=== PATIENT | female | born 1945 | race Caucasian/White ===

== ENCOUNTER 2021-03-19 16:25 | Emergency (ER) | payer MEDICARE, OTHER, SELFPAY ==
[2021-03-19] VITALS (16 sets, daily range): BP systolic 110–147; BP diastolic 51–130; PULSE 61–70; RESP 15–25; TEMP 36.8–36.9; O2SAT 95–100
--- NOTE | ~2021-03-19 | XR_ITS ---
XR chest 1V portable DATE: 03/19/2021 18:15 INDICATION: Fever, cough, chills. Congestive heart failure, hypertension, asthma. TECHNIQUE: Portable AP chest on 03/19/2021 1812 hours COMPARISON: None FINDINGS: There is left mid and lower lung infiltrate and/or atelectasis and lesser right lower lung infiltrate and/or atelectasis. Heart size is likely within normal range considering magnification associated with AP projection. The re is aortic arch calcification and thoracic aortic tortuosity. No pneumothorax. Diffuse osteopenia. Thoracic scoliosis. IMPRESSION: Left mid and bilateral lower lung infiltrate and/or atelectasis Reviewed, dictated and finalized at location J. [place] TECHNICIAN
--- NOTE | 2021-03-19 18:08 | ECG_ITS ---
Measurements Intervals [place] Rate: 62 P: 64 MD: 209 QRS: 45 QRSD: 100 T: 53 QT: 481 QTc: 492 Interpretive Statements SINUS RHYTHM PROLONGED QT INTERVAL ABNORMAL ECG Electronically Signed On 03-20-2021 14:04:05 [employer]PERATIONS OFFICER [employer]FLOAT by Alonzo Sidhu D.O.
--- NOTE | 2021-03-19 18:09 | ED.FEVER ---
HPI - Fever General Chief Complaint: Fever Stated Complaint: fever, nausea Time Seen by Provider: 03/19/21 17:59 Source: patient and RN notes reviewed Mode of arrival: ambulatory Limitations: no limitations History of Present Illness HPI Narrative: This is an 75 year old female who presents for evaluation of fever. She reports approximately 1 pm today she started to feel unwell. She was told by her family that she had a fever, but she is unsure of temperature. She denies being given any medication for fever prior to arrival. She reports nausea and mild frontal headache. She wears 2-4 liters oxygen [place] all the time. She reports chronic cough and chronic sob. She denies any worsening of those symptoms. She denies vomiting, chest pain, abdominal pain, diarrhea or any urinary complaints. She has received influenza and covid vaccination/booster. She is visiting from [place]. Related Data Allergies Allergy/AdvReac Type Severity Reaction Status Date / Time acetaminophen [From Percocet] Allergy Unknown Verified 03/19/21 16:45 clindamycin Allergy Chills Verified 03/19/21 16:45 diazepam Allergy Other Verified 03/19/21 16:45 meperidine [From Demerol] Allergy Hallucinati Verified 03/19/21 16:45 ng oxycodone [From Percocet] Allergy Unknown Verified 03/19/21 16:45 propoxyphene Allergy Nausea and Verified 03/19/21 16:45 Vomiting Review of Systems Review of Systems: All systems reviewed & are unremarkable except as noted in HPI and below Constitutional: Constitutional: Reports fever(s) ENT: Denies nasal congestion and Denies sore throat Cardiovascular: Cardiovascular: Denies chest pain Respiratory: Respiratory: Reports cough (chronic) and Denies dyspnea Gastrointestinal: Gastrointestinal: Denies abdominal pain, Denies diarrhea, Reports nausea and Denies vomiting Genitourinary: Genitourinary: Denies dysuria and Denies flank pain Musculoskeletal: Musculoskeletal: Reports myalgias (chronic from fibromyalgia) Neurologic: Reports headache(s) [facility] Past Medical History Medical History (Updated 03/20/21 @ 00:00 by Background Daemon) Asthma CHF (congestive heart failure) Fibromyalgia Hypertension Supplemental oxygen dependent Exam Const: General: alert; No no acute distress Orientation/consciousness: patient oriented x3 Eyes: EOM: EOMs intact bilaterally Chest: Chest palpation & inspection: normal inspection of the chest Resp: Effort & Inspection: normal respiratory effort, no retractions and not tachypneic Auscultation: wheezes (bibasilar expiratory ) Cardio: Rate: regular rate Rhythm: regular rhythm Heart sounds: no murmurs GI: GI Palp: Yes Soft to palpation, No Tenderness to palpation present (GI) and No Guarding due to palpation present (GI) Auscultation: normal bowel sounds Skin: General skin exam: normal color Rashes: no rashes Neuro: General: patient oriented x3, moves all extremities and CN's II-XI intact bilaterally Extrem: General: normal to inspection and no pedal edema Psych: Mental Status: mental status grossly normal Affect: normal affect Course Reevaluation(s) Reevaluation #1: Patient has no complaints at this time. I Discussed that she will be discharged home and started on antibiotics for possible pneumonia. I also discussed with her daughter at bedside. I discussed return precautions. Date: 03/19/21 Time: 21:42 Vital Signs Vital signs: Vital Signs Temperature 98.4 F 03/19/21 16:40 Pulse Rate 67 03/19/21 16:40 Respiratory Rate 18 03/19/21 16:40 Blood Pressure 117/51 L 03/19/21 16:40 Pulse Oximetry 95 03/19/21 16:40 Temperature 98.3 F 03/19/21 22:10 Pulse Rate 69 03/19/21 22:10 Respiratory Rate 16 03/19/21 22:10 Blood Pressure 136/76 03/19/21 22:10 Pulse Oximetry 100 03/19/21 22:10 MDM - Fever Lab Data Attestation: I reviewed the patient's lab results. Result diagrams: 03/19/21 18:52 03/19/21 18:52
[2021-03-19 18:21] LABS: Alveolar/Arterial O2 Gradient 59.2 mmHg; Base Excess ABG 1.6 mEq/l (+/-2.0); Carboxyhemoglobin 0.3 % THb (0-2.0); Device NASAL CANNULA; Fractional Inspired Oxygen 28 %; HCO3 ABG 25.2 mEq/l (22.0-26.0); Methemoglobin ABG 0.1 %THb (0-1.5); Modified Allen's Test Pass; Oxygen Content ABG 15.9 %vol (16.0-22.0); Oxygen Saturation ABG 97.8 % (95.0-100.0); Oxyhemoglobin 96.4 % THb (90.0-100.0); PCO2 ABG 35.7 mmHg (35.0-45.0); PO2 ABG 98.3 mmHg (80.0-100.0); PO2 FiO2 Ratio Arterial Blood 3.51 %; Reduced Hemoglobin 3.2 %THb (0-5.0); Site Drawn LEFT RADIAL; Total Hemoglobin 11.6 g/dL (12.0-18.0); pH ABG 7.466 (7.350-7.450)
[2021-03-19 19:01] LABS: Basophils Percent Auto 0.2 % (0.2-1.2); Eosinophils Percent Auto 0.2 % (0-4.4); Hematocrit 30.6 % (37.0-47.0); Hemoglobin 10.6 g/dL (12.0-15.0); Immature Granulocyte Absolute 0.06 K/mm3 (0.00-0.031); Immature Granulocyte Percent A 0.5 % (0-0.5); Lymphocytes Absolute Auto 0.42 K/mm3 (0.9-3.2); Lymphocytes Percent Auto 3.7 % (18.3-44.2); Mean Corpuscular HGB Conc 34.6 g/dl (32-36); Mean Corpuscular Hemoglobin 31.9 pg (26-34); Mean Corpuscular Volume 92.2 fl (80-100); Mean Platelet Volume 10.7 fl (7.4-10.4); Monocytes Absolute Auto 2.4 K/mm3 (0.1-0.6); Monocytes Percent Auto 21.6 % (2.6-8.5); Neutrophils Absolute Auto 8.3 K/mm3 (1.3-6.7); Neutrophils Percent Auto 73.8 % (45.5-73.1); Platelet Count Result 152 k/mm3 (150-375); Red Blood Count 3.32 M/mm3 (4.2-5.4); Red Cell Distribution Width 12.9 % (11.5-14.5); White Blood Count 11.3 K/mm3 (4.5-10.0)
[2021-03-19] MEDS: ONDANSETRON INJ 4 MG/2 ML VIAL IV PUSH (19:03)
[2021-03-19 19:09] LABS: Lactic Acid Reflex 0.6 mmol/L (0.7-2.1)
[2021-03-19 19:12] LABS: Alanine Aminotransferase 40 U/L (4-35); Albumin Level 4.3 g/dL (3.5-5.1); Alkaline Phosphatase 114 U/L (38-126); Anion Gap 11 mmol/L (8-16); Aspartate Amino Transferase 41 U/L (14-36); Bilirubin,Total 1.5 mg/dL (0.2-1.3); Blood Urea Nitrogen 13 mg/dL (7-17); Calcium 9.6 mg/dL (8.4-10.2); Carbon Dioxide 26 mmol/L (22-30); Chloride 95 mmol/L (98-107); Estimated CRCL calculation 60 ml/min; Estimated Glomerular Filt Rate > 60; Glucose 144 mg/dL (65-110); Lipase 44 U/L (23-300); Magnesium 1.5 mg/dL (1.6-2.3); Potassium 3.5 mmol/L (3.4-5.0); Sodium 132 mmol/L (137-145)
[2021-03-19 19:37] LABS: SARS-CoV-2 RNA PCR Negative
[2021-03-19 20:15] LABS: Add Urine Microscopic? NO; Appearance Urine Clear (Clear); Bilirubin Urine Negative (Negative); Blood Urine Negative (Negative); Color Urine Yellow (Yellow); Glucose Urine UA Negative (Negative); Ketones Urine Negative (Negative); Leukocyte Esterase Ur Negative LEU/UL (Negative); Nitrate Urine Negative (Negative); Protein Urine Negative (Negative); Specific Grav Ur 1.014 (1.001-1.035); Urobilinogen Urine Negative mg/dL (<2.0)
--- NOTE | 2021-03-19 20:59 | PC.NURSE ---
Pt daughter updated by phone.
[2021-03-19] MEDS: MAGNESIUM OXIDE 400 MG TABLET PO (21:22)
== END 2021-03-19 22:18 | disposition home or self-care (01) ==
PROVIDERS: Emergency Provider General Practice; PCP Internal Medicine
DX: J18.9 Pneumonia, unspecified organism (principal); Z20.822 Contact with and (suspected) exposure to COVID-19; I11.0 Hypertensive heart disease with heart failure; I50.9 Heart failure, unspecified; J45.909 Unspecified asthma, uncomplicated; Z99.81 Dependence on supplemental oxygen
CPT/HCPCS: 36415; 36600; 71045; 80053; 81003; 82375; 82805; 83050; 83605; 83690; 83735; 85025; 87804; 93005; 96365; 96375; 99284; A9270; C9803; J0696; J2405; U0003; U0005

== ENCOUNTER 2021-05-08 08:04 | Outpatient (CLI) | payer MEDICARE, OTHER, SELFPAY ==
--- NOTE | ~2021-05-08 | XR_ITS ---
XR chest 2V DATE: 05/08/2021 09:09 INDICATION: Pneumonia, asthma, congestive heart failure, hypertension TECHNIQUE: PA and lateral views COMPARISON: 03/19/2021 portable AP chest FINDINGS: There is prominent S-shaped thoracolumbar scoliosis and degenerative change of the thoracic and lumbar spine. Status post posterior lumbar spinal surgical fusion. Osteopenia. Heart size is within normal range. There is aortic calcification and tortuosity.. No hilar or mediastinal enlargement. No pleural effusion or pulmonary vascular congestion or pneumothorax. There is minimal atelectasis or scarring in the lateral right lower lung. No pulmonary consolidation . IMPRESSION: No active disease Reviewed, dictated and finalized at location A. ANY SECRETARY IMPRESSION: No active disease
--- NOTE | 2021-05-08 12:44 | WPDSIXMINUTE ---
Six Minute Walk Procedure Procedure Performed Pulmonary Stress Test (6 min walk) Six Minute Walk This 6 minute walk test was carried out with the patient breathing supplemental oxygen 4 liters/minute via portable device. The pre walk oxyhemoglobin saturation was 98%. The patient walked 106 m with no stops recorded. During the walk the oxyhemoglobin saturation remained over 94%. The perceived dyspnea was 0 on the Minerva scale at baseline and increased to 4 at the end of the walk. Impression: No evidence of oxyhemoglobin desaturation on this testing.
== END 2021-05-08 08:05 | disposition home or self-care (01) ==
LOC: ANHPFT 08:14
PROVIDERS: PCP Internal Medicine; Visit Provider Internal Medicine
DX: R09.02 Hypoxemia (principal)
CPT/HCPCS: 71046; 94618

== ENCOUNTER 2021-05-23 16:31 | Emergency (ER) | payer MEDICARE, OTHER, SELFPAY ==
--- NOTE | ~2021-05-23 | XR_ITS ---
XR knee LT 3V DATE: 05/23/2021 17:02 INDICATION: Anterior patellar knee pain. No known injury. TECHNIQUE: [place], AP and lateral views COMPARISON: None FINDINGS: Status post left knee arthroplasty with patellar resurfacing. Diffuse osteopenia. No fracture or dislocation or joint effusion. No periosteal reaction or bone destruction. IMPRESSION: Osteopenia Status post left total knee arthroplasty No acute finding Reviewed, dictated and finalized at location A.
--- NOTE | 2021-05-23 16:42 | ED.LOWEXIN ---
HPI - Extremity Injury (Lower) General Chief Complaint: Extremity Problem,Nontraumatic Stated Complaint: Left knee pain Time Seen by Provider: 05/23/21 16:45 Source: patient and family Mode of arrival: ambulatory Limitations: physical limitation (In motorized wheelchair) History of Present Illness HPI Narrative: Ms. Darden is a 75-year-old female patient presenting to the clinic today with complaints of possible dislocation of the left knee cap. She first noticed this today. No known injury. She does have a small braised area just under her kneecap but denies any known injury or recent falls. History of left knee repair 20 years ago. Related Data Home Medications Medication Instructions Recorded Confirmed Aldactone 05/23/21 Protonix 05/23/21 Prozac 05/23/21 Synthroid 05/23/21 albuterol sulfate INHALATION 05/23/21 amlodipine 05/23/21 fluoxetine mg 05/23/21 furosemide 05/23/21 gabapentin 05/23/21 montelukast mg 05/23/21 pantoprazole PO 05/23/21 potassium chloride meq PO 05/23/21 telmisartan 05/23/21 Allergies Allergy/AdvReac Type Severity Reaction Status Date / Time acetaminophen [From Percocet] Allergy Unknown Verified 03/19/21 16:45 clindamycin Allergy Chills Verified 03/19/21 16:45 diazepam Allergy Other Verified 03/19/21 16:45 meperidine [From Demerol] Allergy Hallucinati Verified 03/19/21 16:45 ng oxycodone [From Percocet] Allergy Unknown Verified 03/19/21 16:45 propoxyphene Allergy Nausea and Verified 03/19/21 16:45 Vomiting Review of Systems Review of Systems: Pertinent positives per HPI. Patient denies any fever, chills, rash, headache, visual changes, dizziness, cough, runny nose, sore throat, shortness of breath, chest pain, palpitations, nausea, vomiting, diarrhea, constipation, abdominal pain, or any urinary issues. [facility] Past Medical History Medical History Asthma CHF (congestive heart failure) Fibromyalgia Hypertension Supplemental oxygen dependent Comments At the time of my signature, I reviewed and agree with the nursing past medical, surgical, social, and family history. There is no relevant family history pertinent to the patient complaint. Exam Narrative: General: Well-developed, obese, in no apparent distress, wearing home O2. Cardio: Regular rate and rhythm, s1 and s2 normal, no murmur appreciated. Resp: Clear to auscultation bilaterally, no rhonchi, rales, wheezing or rubs. Musculoskeletal: No deformity, well-healed surgical scar over left knee, very small abrasion just below the left patella, left patella more pronounced then right, tenderness to palpation over the medial and inferior patella, no pain with flexion or extension of the left leg, grossly normal range of motion, no edema, no cyanosis, sitting in a wheelchair. Course Course Emergency Course: Portions of this record may have been created with voice recognition software. Level of Care: Express Care Visit Vital Signs Vital signs: Vital Signs Temperature 36.3 C L 05/23/21 16:45 Pulse Rate 67 05/23/21 16:45 Respiratory Rate 16 05/23/21 16:45 Blood Pressure 106/78 05/23/21 16:45 Pulse Oximetry 99 05/23/21 16:45 Temperature 36.3 C L 05/23/21 16:45 Pulse Rate 67 05/23/21 16:45 Respiratory Rate 16 05/23/21 16:45 Blood Pressure 106/78 05/23/21 16:45 Pulse Oximetry 99 05/23/21 16:45 Vital signs reviewed MDM - Extremity Injury (Lower) MDM Narrative Medical decision making narrative: At the time of assessment patient had tenderness to the medial and inferior aspects of the left patella, no fluctuation with knee extension. Left knee x-ray completed and was negative for any fracture or malalignment. Suspect some osteoarthritis and the knee x-ray. Awaiting radiologist report. We will send patient home with supportive measures and contact her if radiologist notes any difference in interpretation.
[2021-05-23 16:45] VITALS: BP 106/78; PULSE 67; RESP 16; TEMP 36.3; O2SAT 99
== END 2021-05-23 17:19 | disposition home or self-care (01) ==
PROVIDERS: Emergency Provider Nurse Practitioner Family; PCP Internal Medicine
DX: M25.562 Pain in left knee (principal); J45.909 Unspecified asthma, uncomplicated; M79.7 Fibromyalgia; I11.0 Hypertensive heart disease with heart failure; I50.9 Heart failure, unspecified; Z99.81 Dependence on supplemental oxygen
CPT/HCPCS: 73562; 99213; G0463

== ENCOUNTER 2021-07-03 09:24 | Outpatient (CLI) | payer MEDICARE, OTHER, SELFPAY ==
--- NOTE | ~2021-07-03 | US_ITS ---
EXAMINATION: US retroperitoneal duplex ltd DATE: 07/03/2021 10:28 INDICATION: Hypotension. TECHNIQUE: Multiple grayscale, color Doppler, and pulsed Doppler images of the kidneys and renal shantel kate were obtained. COMPARISON: None. FINDINGS: The aorta peak systolic velocity was not measured. The right renal artery peak systolic velocity is 7 5 cm/s in the proximal segment, 78 cm/s in the mid segment, and 69 cm/s in the distal segment. The le ft renal artery peak systolic velocity is 87 cm/s in the proximal segment and 83 cm/s in the distal s egment. IMPRESSION: 1. No Doppler evidence of renal artery stenosis. Reviewed, dictated and finalized at location A.
== END 2021-07-03 09:25 | disposition home or self-care (01) ==
LOC: ANHIMG 09:29
PROVIDERS: PCP Internal Medicine; Visit Provider Internal Medicine
DX: R09.89 Other specified symptoms and signs involving the circulatory and respiratory systems (principal); I10 Essential (primary) hypertension
CPT/HCPCS: 93976

== ENCOUNTER → 2021-08-18 14:06 | Outpatient (CLI) | payer MEDICARE, OTHER, SELFPAY ==
--- NOTE | ~2021-08-18 | XR_ITS ---
XR chest 2V DATE: 08/18/2021 14:20 INDICATION: Abnormal lung sounds. History of COPD, interstitial lung disease, asthma. TECHNIQUE: PA and lateral views COMPARISON: 05/08/2021 PA and lateral chest FINDINGS: Mild cardiomegaly. There is aortic tortuosity. Bilateral hyperinflation, suggesting obstructive airways disease. No pulmonary infiltrate or consolidation, pleural effusion or pulmonary vascular congestion or pneumo thorax is noted. Osteopenia. Prominent thoracic and lumbar scoliosis. Status post cholecystectomy. Bilateral lumbar pedicle screws and rods, fusion device at a lumbar interspace. IMPRESSION: Bilateral hyperinflation consistent with obstructive airways disease Mild cardiomegaly Aortic tortuosity. Reviewed, dictated and finalized at location A. IMPRESSION: Bilateral hyperinflation consistent with obstructive airways diseas e Mild cardiomegaly Aortic tortuosity.
== END ==
PROVIDERS: PCP Internal Medicine; Visit Provider Internal Medicine
DX: R09.89 Other specified symptoms and signs involving the circulatory and respiratory systems (principal); R91.8 Other nonspecific abnormal finding of lung field; I51.7 Cardiomegaly; Q25.46 Tortuous aortic arch
CPT/HCPCS: 71046

== ENCOUNTER 2021-10-02 11:58 | Outpatient (CLI) | payer MEDICARE, OTHER, SELFPAY ==
--- NOTE | ~2021-10-02 | CT_ITS ---
EXAMINATION: CT chest high resolution wo co DATE: 10/02/2021 12:18 INDICATION: Interstitial lung disease TECHNIQUE: Computed tomography (CT) of the chest was performed without intravenous contrast. The dose -length product was 517.08 mGy-cm. Automated exposure control and iterative reconstruction technique were employed. COMPARISON: Chest x-ray dated 08/18/2021 FINDINGS: There is mild mediastinal lymphadenopathy. AP window lymph node measuring 1 cm short axis. There is mild atherosclerosis of the aorta and coronary arteries. Borderline heart size. No significa nt pleural or pericardial effusion. Small hiatal hernia. Status post cholecystectomy with pneumobilia . There is a combination of peripheral interstitial lung disease with interlobular septal thickening and groundglass opacities. There is mild lower lobe bronchiectasis bilaterally. No pneumothorax. No e ndobronchial lesions. Mild emphysema. There is severe thoracic spondylosis with S-shaped scoliosis. N o acute osseous abnormality. There are a few small nodules in both lungs measuring 2 mm or less, like ly benign. IMPRESSION: 1. Coarse interstitial lung disease, likely chronic, in a pattern consistent with usual interstitial pneumonia (UIP). 2: Mild emphysema. 3: Mild mediastinal lymphadenopathy, likely reactive. Reviewed, dictated and finalized at location A. IMPRESSION: 1. Coarse interstitial lung disease, likely chronic, in a pattern consistent wi th usual interstitial pneumonia (UIP). 2: Mild emphysema. 3: Mild mediastinal lymphadenopathy, likely reactive.
== END 2021-10-02 11:59 ==
PROVIDERS: PCP Internal Medicine; Visit Provider Internal Medicine
DX: J84.9 Interstitial pulmonary disease, unspecified (principal); R59.1 Generalized enlarged lymph nodes; J43.9 Emphysema, unspecified; I25.10 Atherosclerotic heart disease of native coronary artery without angina pectoris; I70.0 Atherosclerosis of aorta; M41.9 Scoliosis, unspecified; M47.814 Spondylosis without myelopathy or radiculopathy, thoracic region
CPT/HCPCS: 71250

== ENCOUNTER 2021-11-18 10:58 | Outpatient (CLI) | payer MEDICARE, OTHER, SELFPAY ==
[2021-11-20 21:32] LABS: Anti Cyclic Citrullinated Pept <16 Units (<20)
[2021-11-22 08:45] LABS: JO 1 Antibody <1.0; RNP Antibodies <1.0; SS-A <1.0; SS-B <1.0; Scleroderma 70 Antibody <1.0
[2021-11-25 15:51] LABS: ANCA Screen Negative (Negative)
== END 2021-11-18 10:59 | disposition home or self-care (01) ==
PROVIDERS: PCP Internal Medicine; Visit Provider Internal Medicine Pulmonary Disease
DX: J84.9 Interstitial pulmonary disease, unspecified (principal); M13.80 Other specified arthritis, unspecified site; Z87.39 Personal history of other diseases of the musculoskeletal system and connective tissue
CPT/HCPCS: 36415; 86036; 86200; 86235

== ENCOUNTER 2021-12-08 13:36 | Outpatient (CLI) | payer MEDICARE, OTHER, SELFPAY ==
--- NOTE | 2021-12-08 14:00 | ECHO_ITS ---
Patient Info Name: Marialuisa Darden Age: 76 years : 1945 Gender: Female Ht: 66 in Wt: 215 lbs BSA: 2.17 m2 HR: 64 bpm BP: 140 / 64 mmHg Technical Quality: Good Exam Date: 12/08/2021 3:22 PM Exam Location: [facility] Patient Status: Outpatient Admit Date: 12/08/2021 Staff Ordering Physician: Ton Rose MD Treasury Representative: Wade Chambers RDCS Attending Provider: Ton Rose MD Referring Physician: Rose COCHRAN; Exam Type: CA echo doppler color flow Study Info Indications I50.9 - Heart failure, unspecified Complete two-dimensional, color flow and Doppler transthoracic echocardiogram is performed. Summary 1. Complete two-dimensional, color flow and Doppler transthoracic echocardiogram is performed. 2. Left ventricular chamber dimension is normal. 3. Left ventricular systolic function is normal, estimated at 55-60%. 4. The left ventricular diastolic function is grade I diastolic dysfunction. 5. E/e' 7 is not elevated. 6. Left atrial chamber dimension is moderately enlarged. 7. There is trace mitral valve regurgitation. Left Ventricle E/e' 7 is not elevated. The left ventricular diastolic function is grade I diastolic dysfunction. Left ventricular chamber dimension is normal. Left ventricular systolic function is normal, estimated at 55-60%. Right Ventricle Right ventricular systolic function is normal and with normal TAPSE 1.9 cm. Right ventricular chamber dimension is normal. Left Atria Left atrial chamber dimension is moderately enlarged. Right Atria Right atrial chamber dimension is normal. Aortic Valve The aortic valve is trileaflet. There is no aortic valve stenosis. There is no aortic valve regurgitation. Pulmonic Valve There is no pulmonic regurgitation. Mitral Valve There is no mitral valve stenosis. There is trace mitral valve regurgitation. Tricuspid Valve There is no tricuspid valve regurgitation. Pericardium/Pleural There is no pericardial effusion. Inferior Vena Cava Normal inferior vena cava with >50% collapse upon inspiration consistent with normal right atrial pressure, 5 mmHg. Aorta The aortic root size at the sinus of Valsalva is normal. Left Ventricular Outflow Tract Name Value Normal LVOT 2D LVOT Diameter 2.0 cm LVOT Doppler LVOT Peak Gradient 6 mmHg LVOT Mean Gradient 4 mmHg LVOT VTI 32 cm LVOT VTI/AV VTI Ratio 1.0 LVOT Stroke Volume 98 ml LVOT CO 6.0 l/min LVOT CI 2.7 l/min/m2 Mitral Valve Name Value Normal MV Doppler MV Peak Gradient 3 mmHg MV Mean Gradient 1 mmHg MV Decel Sl
--- NOTE | 2021-12-08 16:28 | P.PCNPFT_ITS ---
PFT Procedure Performed PFT Procedure Performed Spirometry with Pre/Post Bronchodilator Plethysmography (Lung Vol) Diffusing Cap (DLCO) Flow Vol Loop PFT Interpretation This is a pulmonary function test with pre and post-bronchodilator spirometry, plethysmography and diffusing capacity. The test was performed and results interpreted in accordance with the 2019 and 2005 ATS/ERS Task Force guidelines respectively using the Global Lung Function Initiative-2012 reference equations. Patient demonstrated good effort and cooperation. Reproducibility criteria were met. The quality of the pre bronchodilator spirometry maneuver was Grade A and post bronchodilator spirometry maneuver was Grade A. Findings: Spirometry: The contour of 3 out of 3 pre bronchodilator expiratory tracings demonstrates an expiratory plateau or knee contour and the contour of 2 of 3 post bronchodilator expiratory flow tracings demonstrates a more pronounced expiratory plateau or knee contour. The contour the inspiratory flow tracing is normal. The pre bronchodilator FVC is 2.78 L, 103% predicted. The pre bronchodilator FEV1 is 2.19 L, 107% predicted. The pre bronchodilator FEV1: FVC ratio 79%. The post bronchodilator FVC is 2.83 L, representing a 2% increase. The post bronchodilator FEV1 is 2.31 L, representing a 6% increase. The post bronchodilator FEV1: FVC ratio is 82%. Plethysmography: The total lung capacity is 5.12 L, 98% predicted. The functional residual capacity is 3.00 L, 100% predicted. The residual volume is 2.17 L, 90% predicted. Diffusing capacity: The diffusion capacity unadjusted for hemoglobin and carboxyhemoglobin is 10.5, 53% predicted. The diffusing capacity adjusted for alveolar volume is 2.96, 72% predicted. Impression: The spirometry Demonstrates an expiratory plateau or knee contour. The knee pattern can be a normal variant or pathologic and has been attributed to a choke point section of the bronchial tree. The normal variant is more common in younger female patients, decreases with age and is more pronounced in the post bronchodilator efforts. The pattern has also been described with kyphosis, kyphoscoliosis, central obstructing mass, and post lung transplantation. Otherwise the spirometry is normal without evidence of an obstructive abnormal ity. There is no significant improvement after inhaling a single dose of albuterol. The lung volumes are normal. The diffusing capacity unadjusted for hemoglobin and carboxyhemoglobin is moderately decreased and normalizes when adjusted for alveolar volume. There are no prior studies for comparison
--- NOTE | 2021-12-08 16:36 | WPDSIXMINUTE ---
Six Minute Walk Procedure Procedure Performed Pulmonary Stress Test (6 min walk) Six Minute Walk Six Minute Walk: This is a 6 minute walk test. The test was performed and interpreted in accordance with the 2014 ERS/ATS task force guidelines. the patient used a wheeled walker and her home O2 setting of 2 L nasal cannula. The patient had to stop the test around 5 minutes due to fatigue and shortness of breath. Findings: The patient's resting 2 L nasal canula oxygen saturation measured by pulse oximetry was 98% and heart rate was 66 bpm. Patient ambulated for 61 meters and oxygen saturation remained 93 to 98%. Heart rate at the end of the study was 85 bpm. Of note, during the recovery phase the patient desaturated to a abdelrahman of 85% at 6 minutes and 32 seconds. Patient saturations increased and were 91% at 7 minutes and 8 seconds. The patient had no desaturations while walking with 2 L nasal cannula although she did have desaturations to 85% in the recovery phase.
== END 2021-12-08 13:37 | disposition home or self-care (01) ==
LOC: ANHCARD 13:39
PROVIDERS: PCP Internal Medicine; Visit Provider Internal Medicine Pulmonary Disease
DX: J84.9 Interstitial pulmonary disease, unspecified (principal); I50.9 Heart failure, unspecified; Z87.891 Personal history of nicotine dependence; I51.7 Cardiomegaly
CPT/HCPCS: 93306; 94060; 94618; 94726; 94729

== ENCOUNTER 2022-02-15 08:51 | Outpatient (CLI) | payer MEDICARE, OTHER, SELFPAY ==
--- NOTE | 2022-03-16 21:12 | WPDSLEEPSTUD ---
Sleep Study Date of Study: 02/15/22 Ordering Provider: Ton Rose MD Interpreting Physician: Nicole Arguello DO Sleep Study Type: Split Polysomnogram Height: 1.65 m Weight: 102.058 kg Body Mass Index: 37.4 Neck Circumference (inches): 16 [place]: 6 Reason for Sleep Study Nighttime awakenings. Previously diagnosed NBA in 2007 Sleep History The patient was previously diagnosed with sleep apnea in 2007 and was prescribed CPAP with oxygen. The patient rarely awakens from sleep short of breath. She occasionally awakens at night with heartburn, belching or cough. She constantly snores loud enough others complain. She frequently has trouble sleeping when she has a cold. She occasionally wakes up gasping for air throughout the night. She frequently has breathing problems at night observed by herself or others. She denies sweating excessively at night. She denies having heart palpitations or irregular heartbeats during the night. She occasionally falls asleep during the day and rarely falls asleep while driving. She denies cataplexy and hypnagogic / hypnopompic hallucinations. She occasionally has trouble at school or work due to sleepiness. She occasionally feels unable to move while waking up or falling asleep. She rarely feels afraid of going to sleep. She rarely has nightmares and rarely remembers her dreams. She denies having thoughts racing through her mind. She rarely feels sad, depressed or anxious. She rarely notices parts of her body jerk. She occasionally kicks during the night. She rarely has crawling and aching feelings in her legs and rarely has leg pain during the night. She constantly grinds her teeth during sleep and frequently awakens with morning jaw pain. She is constantly bothered by pain during the day and occasionally awakened by pain during the night. She constantly wakes up feeling stiff in the morning. She constantly wakes up with sore achy muscles. She constantly wakes up with pain in the neck, spine or other joints. She goes to bed at 10:30 p.m. on weekdays between 10:30 p.m. to 11:00 p.m. on the weekends. It takes her 15-20 minutes to fall asleep. She wakes up twice throughout the night to urinate. She is able to fall back asleep within 20 minutes. She wakes up between 5-530 a.m. on both weekdays and weekends. She typically gets 6-7 hours of sleep per night. She does not stay in bed after waking up in the morning. She currently lives with her . She does not consume any caffeinated beverages within 2 hours of bedtime. She does not engage in physical exercise before bedtime. She will read before falling asleep. She denies watching television before falling asleep. She will take naps in the afternoon or the evening. She drinks 3 caffeinated beverages per day. She quit smoking cigarettes 40 years ago. She consumes 1-2 alcoholic beverages per day. She denies recreational drug use. [facility] Past Medical History Medical History Aftercare following finger joint replacement surgery Asthma CHF (congestive heart failure) Enlarged ureter Fibromyalgia Fracture, rib History of left heart catheterization Hypertension Scoliosis Supplemental oxygen dependent Thyroiditis Tubal ligation evaluation Surgical History Surgical History H/O hernia repair 1947 History of hip surgery History of surgical removal of ganglion cyst 1960 Previous back surgery S/P peroneal tendon repair Total knee replacement status Social History Social History Smoking status: Former smoker Medications Home Medications Medication Instructions Recorded Confirmed Type Prozac 05/23/21 History Synthroid 05/23/21 History albuterol sulfate 90 mcg/actuation inhalation 05/23/21 History aerosol inhaler amlodipine 10 mg
[2022-03-17 10:20] VITALS: BMI 37.4
== END 2022-02-16 08:06 | disposition home or self-care (01) ==
LOC: ANHCSM 08:54
PROVIDERS: PCP Internal Medicine; Visit Provider Internal Medicine Pulmonary Disease
DX: G47.33 Obstructive sleep apnea (adult) (pediatric) (principal)
CPT/HCPCS: 95811

== ENCOUNTER 2022-05-27 12:59 | Outpatient (CLI) | payer MEDICARE, OTHER, SELFPAY ==
--- NOTE | ~2022-05-27 | XR_ITS ---
EXAMINATION: XR lg joint inject/asp w image DATE: 05/27/2022 14:11 INDICATION: Left shoulder pain TECHNIQUE: A time-out was performed to verify the patient's name, date of , and procedure to b e performed. The procedure including the risks, benefits, and alternatives was discussed with the pat ient. Risks discussed included bleeding and infection. The patient understood the risks and agreed to proceed. The skin overlying the rotator cuff interval of the left glenohumeral joint was prepped an d draped in usual sterile fashion. Anesthetic was administered with 1% lidocaine subcutaneously. A 22 G needle was advanced under fluoroscopic guidance into the joint. Injection of 1 mL of Omnipaque 240 confirmed intra-articular position of the needle. Subsequently, injectate consisting of 4 mL a 1 :1 mixture of 1% lidocaine 10 mg/mL Kenalog for a total dosage of 20 mg Kenalog was instilled. [place] t of contrast was seen confirming intra-articular administration. The needle was removed and the entr y site was cleaned and dressed. There were no immediate complications. Fluoroscopy exposure time was 0.5 minutes. The total number of images was 2. FINDINGS: Real-time fluoroscopy demonstrates the needle in the left glenohumeral joint. Patient's krista n prior to procedure:4/10. Patient's pain following the procedure: 0/10. IMPRESSION: 1. Left glenohumeral joint injection of local anesthetic and steroid with decrease in the patient's p resenting pain. Reviewed, dictated and finalized at location A. IMPRESSION: 1. Left glenohumeral joint injection of local anesthetic and steroid with decre ase in the patient's presenting pain.
== END 2022-05-27 13:00 | disposition home or self-care (01) ==
PROVIDERS: PCP Internal Medicine; Visit Provider Orthopaedic Surgery
DX: G89.29 Other chronic pain (principal); M25.512 Pain in left shoulder
CPT/HCPCS: 20610; 77002; J3301; Q9966

== ENCOUNTER 2022-07-12 14:43 | Observation (INO) | payer MEDICARE, OTHER, SELFPAY ==
[2022-07-12] VITALS (46 sets, daily range): BP systolic 122–174; BP diastolic 47–121; PULSE 79–96; RESP 13–26; TEMP 37.1–37.2; O2SAT 92–100; BMI 38.5
--- NOTE | ~2022-07-12 | US_ITS ---
EXAMINATION:US venous doppler LE BI INDICATION:Leg edema TECHNIQUE: Multiple grayscale, color flow and Doppler images of the right and left lower extremity de ep venous systems were obtained and reviewed. COMPARISON:No prior studies for comparison. FINDINGS: The common femoral, superficial femoral and popliteal veins demonstrate normal respiratory variation, augmentation and compressibility. Color flow is also seen within the posterior tibial, pe roneal, greater saphenous and profunda veins. IMPRESSION: 1: No lower extremity deep venous thrombosis. Reviewed, dictated and finalized at location L.
--- NOTE | ~2022-07-12 | CT_ITS ---
EXAMINATION: CTA chest PE protocol DATE: 07/12/2022 18:17 INDICATION: shortness of breath, elevated d-dimer TECHNIQUE: Computed tomography angiography (CTA) of the chest was performed with 100 mL Omnipaque-350 intravenous contrast timed to evaluate the pulmonary arteries. Coronal maximum intensity projection 3D-reconstructions were created by the technologist. The dose-length product (DLP) was 865.50 mGy-cm. Automated exposure control and iterative reconstruction technique were employed. COMPARISON: None. FINDINGS: Lung parenchyma and airways: Patchy areas of groundglass opacity and dependent groundglass opacity an d consolidation. Mild interlobular septal thickening. Pleura: Uncomplicated fat-containing right posterior diaphragmatic hernia. Thoracic inlet, axillae and chest wall: Unremarkable. Thoracic aorta: Mild arch ectasia and calcification. Mediastinum: Dilated central pulmonary arteries as can be seen with pulmonary arterial hypertension. Bilateral hilar and mediastinal lymphadenopathy. Heart and pericardium: Mild cardiomegaly. Coronary artery calcifications: Moderate. Upper abdomen: No significant finding. Bones: No acute osseous finding. Pulmonary arteries: Study quality: Exam is limited by beam hardening artifact and quantum mottle, bor derline contrast bolus, and motion particularly in the left lower lobe and in subsegmental arteries. No pulmonary emboli detected. IMPRESSION: Limited examination as detailed above. No central embolus. Mild interstitial edema. Reviewed, dictated and finalized at location K. IMPRESSION: Limited examination as detailed above. No central embolus. Mild interstitial ed jake.
--- NOTE | ~2022-07-12 | XR_ITS ---
EXAMINATION: XR chest 1V portable Exam Date/Time: 07/12/2022 15:50 CDT HISTORY: shortness of breath Comparison: 08/18/2021. RESULT: Lines, tubes, and devices: None. Lungs and pleura: Low lung volumes with crowding. Diffuse reticular opacities. Streaky and subsegment al bibasilar opacities. Minimal left costophrenic angle blunting. Cardiomediastinal silhouette: Stable. Other: No acute osseous or upper abdominal finding. IMPRESSION: Pulmonary opacities may represent interstitial pulmonary edema with bibasilar atelectasis. Small left pleural effusion. Reviewed, dictated and finalized at location K. IMPRESSION: Pulmonary opacities may represent interstitial pulmonary edema with bibasilar a telectasis. Small left pleural effusion.
--- NOTE | 2022-07-12 15:25 | ECG_ITS ---
Measurements Intervals [place] Rate: 75 P: 46 MN: 177 QRS: 9 QRSD: 98 T: 30 QT: 430 QTc: 481 Interpretive Statements SINUS RHYTHM NORMAL ECG COMPARED TO ECG 03/19/2021 18:24:35 PROLONGED QT INTERVAL NO LONGER PRESENT Electronically Signed On 07-13-2022 6:34:47 CDT by Alonzo Sidhu D.O.
--- NOTE | 2022-07-12 15:32 | ED.SOB ---
HPI - SOB/Dyspnea General Chief Complaint: Shortness of Breath/Dyspnea <Jose M Lambert APRN - Last Filed: 07/12/22 19:12> Stated Complaint: SOB <Jose M Lambert APRN - Last Filed: 07/12/22 19:12> Time Seen by Provider: 07/12/22 15:22 <Jose M Lambert APRN - Last Filed: 07/12/22 19:12> History of Present Illness HPI Narrative: 76-year-old female presents with sudden onset of shortness of breath and chest tightness. Patient attempted to take rescue inhaler and nebulizer at home with no relief. Patient was given albuterol and Decadron by EMS in route. Patient has a history of asthma and states this is a bad asthma attack. Patient is on 2L's of oxygen continuously. Patient arrived on 4L's of oxygen with sats at 99% Patient denies fevers. <Jose M Lambert APRN - Last Filed: 07/12/22 19:12> Pertinent past history: asthma and congestive heart failure <Jose M Lambert APRN - Last Filed: 07/12/22 19:12> Onset (ago): hour(s) (4) <Jose M Lambert APRN - Last Filed: 07/12/22 19:12> Associated symptoms: cough, wheezing and chest congestion <Jose M Lambert APRN - Last Filed: 07/12/22 19:12> Treatment prior to arrival: other (Albuterol inhaler, albuterol nebulizer) <Jose M Lambert APRN - Last Filed: 07/12/22 19:12> Related Data Home Medications: Home Medications Medication Instructions Recorded Confirmed amlodipine 10 mg tablet 05/23/21 06/15/22 fluoxetine 20 mg capsule mg 05/23/21 06/15/22 furosemide 20 mg tablet 05/23/21 06/15/22 gabapentin 300 mg capsule 05/23/21 06/15/22 pantoprazole 40 mg tablet,delayed PO 05/23/21 06/15/22 release potassium chloride 10 mEq meq PO 05/23/21 06/15/22 tablet,extended release docusate sodium 100 mg capsule 100 mg PO DAILY 11/18/21 06/15/22 donepezil 5 mg tablet 5 mg PO QHS 11/18/21 06/15/22 fluticasone fur. 200 mcg-umeclid 1 inh inhalation DAILY 11/18/21 06/15/22 62.5 mcg-vilant 25 mcg inhalat.powder (Trelegy Ellipta) lidocaine 5 % topical patch 1 patch topical DAILY 11/18/21 06/15/22 montelukast 10 mg tablet 10 mg PO DAILY 11/18/21 06/15/22 pravastatin 40 mg tablet 40 mg PO DAILY 11/18/21 06/15/22 diclofenac sodium 1 % topical gel 4 g topical QID 05/13/22 06/15/22 (Arthritis Pain (diclofenac)) levothyroxine 175 mcg capsule 175 mcg PO DAILY 05/13/22 06/15/22 nebivolol 5 mg tablet 5 mg PO DAILY 05/13/22 06/15/22 olopatadine 0.1 % eye drops 1 drp EACH EYE BID 05/13/22 06/15/22 telmisartan 40 mg tablet 40 mg PO DAILY 05/13/22 06/15/22 spironolactone 25 mg tablet 12.5 mg PO DAILY 06/15/22 06/15/22 <Jose M Lambert, [employer]ER - Last Filed: 07/12/22 19:12> Allergies/Adverse Reactions: Allergies Allergy/AdvReac Type Severity Reaction Status Date / Time clindamycin Allergy Severe Chills Verified 07/12/22 15:11 diazepam Allergy Severe suicidal Verified 07/12/22 15:11 ideation levofloxacin [From Levaquin] Allergy Intermediate Itching Verified 07/12/22 15:11 cat dander Allergy Unknown Unknown Verified 07/12/22 15:11 dog dander Allergy Unknown Unknown Verified 07/12/22 15:11 feathers Allergy Unknown Unknown Verified 07/12/22 15:11 grass pollen Allergy Unknown Unknown Verified 07/12/22 15:11 house dust Allergy Unknown unknown Verified 07/12/22 15:11 Rabbit Allergy Unknown Unknown Verified 07/12/22 15:11 tree and shrub pollen Allergy Unknown Unknown Verified 07/12/22 15:11 meperidine [From Demerol] Allergy Hallucinati Verified 07/12/22 15:11 ng oxycodone [From Percocet] Allergy Nausea Verified 07/12/22 15:11 propoxyphene Allergy Nausea and Verified 07/12/22 15:11 Vomiting <Jose M Lambert APRN - Last Filed: 07/12/22 19:12> Review of Systems Review of Systems: A 10 system review of systems was completed on the patient and is negative except for what is stated in the HPI. Nursing and ancillary documentation was reviewed. <Jose M Lambert APRN - Last Filed: 07/12/22 19:12> [facility] Past Medical History Medical His
[2022-07-12 15:52] LABS: Fractional Inspired Oxygen 48 %; Oxygen Saturation ABG 99.6 % (95.0-100.0)
[2022-07-12 15:55] LABS: Base Excess ABG 1.4 mEq/l (+/-2.0); HCO3 ABG 22.1 mEq/l (22.0-26.0); PCO2 ABG 24.1 mmHg (35.0-45.0); Total Hemoglobin 11.8 g/dL (12.0-18.0)
[2022-07-12 15:56] LABS: Device SIMPLE MASK; Modified Allen's Test Pass; Oxygen Content ABG 16.7 %vol (16.0-22.0); Oxyhemoglobin 97.9 % THb (90.0-100.0); PO2 FiO2 Ratio Arterial Blood 4.27 %; Site Drawn LEFT RADIAL
[2022-07-12] MEDS: IPRATROPIUM BR 0.02% INH SOLN 0.5 MG/2.5 ML VIAL 1.5 MG INHALATION (15:58)
[2022-07-12] MEDS: ALBUTEROL SULFATE NEB 2.5 MG/3 ML INH INHALATION (15:58)
[2022-07-12] MEDS: FUROSEMIDE INJ 40 MG/4 ML VIAL IV PUSH (16:14)
[2022-07-12 16:21] LABS: Basophils Percent Auto 0.2 % (0.2-1.2); Hemoglobin 10.9 g/dL (12.0-15.0); Immature Granulocyte Absolute 0.04 K/mm3 (0.00-0.031); Immature Granulocyte Percent A 0.8 % (0-0.5); Lymphocytes Absolute Auto 0.74 K/mm3 (0.9-3.2); Lymphocytes Percent Auto 14.1 % (18.3-44.2); Mean Corpuscular Hemoglobin 31.1 pg (26-34); Mean Platelet Volume 10.5 fl (7.4-10.4); Monocytes Absolute Auto 0.4 K/mm3 (0.1-0.6); Monocytes Percent Auto 7.8 % (2.6-8.5); Neutrophils Percent Auto 77.1 % (45.5-73.1); Platelet Count Result 145 k/mm3 (150-375); Red Blood Count 3.51 M/mm3 (4.2-5.4); Red Cell Distribution Width 13.5 % (11.5-14.5); White Blood Count 5.2 K/mm3 (4.5-10.0)
[2022-07-12 16:32] LABS: Alanine Aminotransferase 21 U/L (6-35); Albumin Level 4.8 g/dL (3.5-5.1); Alkaline Phosphatase 112 U/L (38-126); Anion Gap 10 mmol/L (8-16); Aspartate Amino Transferase 27 U/L (14-36); Bilirubin,Total 1.3 mg/dL (0.2-1.3); Blood Urea Nitrogen 12 mg/dL (7-17); Calcium 9.5 mg/dL (8.4-10.2); Carbon Dioxide 25 mmol/L (22-30); Chloride 101 mmol/L (98-107); Estimated CRCL calculation 85 ml/min; Estimated Glomerular Filt Rate > 60; Glucose 119 mg/dL (65-110); Magnesium 1.6 mg/dL (1.6-2.3); Potassium 3.7 mmol/L (3.4-5.0); Sodium 136 mmol/L (137-145)
[2022-07-12 16:33] LABS: Lactic Acid Reflex 2.2 mmol/L (0.7-2.0)
[2022-07-12 16:37] LABS: Partial Thromboplastin Time 25.9 SECONDS (22.3-36.8); Prothrombin Time 13.9 Seconds (11.1-14.7)
[2022-07-12 16:43] LABS: D Dimer 0.73 ug/mL (<0.48)
[2022-07-12 16:44] LABS: NT Pro B Type Natriuretic Pept 1570 pg/mL (19.9-100); Troponin I < 0.012 ng/mL (0.000-0.034)
[2022-07-12 16:58] LABS: SARS-CoV-2 RNA PCR Negative (Negative)
[2022-07-12 19:19] LABS: Reflex Lactic Acid Yes or No Add Lactic
[2022-07-12] MEDS: LEVALBUTEROL NEB 1.25 MG/3 ML INHALATION (20:05)
[2022-07-12 20:13] LABS: Lactic Acid 3.9 mmol/L (0.7-2.0)
--- NOTE | 2022-07-12 22:12 | PM.IMHP ---
H&P: HPI History of Present Illness Date/Time: 07/12/22 22:12 Chief Complaint: Shortness of breath Narrative: This is a 76-year-old female patient who has a history of COPD with interstitial lung disease. According to the the patient typically has an asthma attack and they will use nebulizer treatment and the patient will be fine but this time when the use a nebulizer treatment the patient still continued to complain of shortness of breath. The patient was given albuterol and Decadron EN route to the emergency room. The patient typically wears oxygen at home 2 L per nasal cannula. Today she was increased to 4 L of oxygen with her O2 saturation is 99%. She does have a history of congestive heart failure as well. The patient takes Lasix at home. The patient stated that she took her medication as prescribed. The is giving the majority of the history. The patient continues to state that she is short of breath. She states the CC taking a breath and but it has difficulty breathing out. She was given nebulizer treatments in the emergency room as well as Lasix. The patient stated at help some for brief period of time. Her H&H is 10.9 and 33.0 which is near her baseline. Platelets are 145. ABGs pH 7.580, pCO2 24.1 and PO2 was 205. Her lactic acid was 3.9. BNP 1570. COVID test was negative. Chest x-ray was read as pulmonary opacities may represent interstitial pulmonary edema with bibasilar atelectasis. Small left pleural effusion. Chest CTA was read as limited examination as detailed above. No central embolus. Mild interstitial edema. The patient is being admitted to observation status on the date of service of 07/12/2022. Review of Systems Review of Systems: All systems reviewed & are unremarkable except as noted in HPI and below Constitutional: Constitutional: Reports as per HPI and Reports no additional constitutional complaints Eyes: Eyes: Reports as per HPI and Reports no additional eye complaints ENT: Reports system reviewed and no additional complaints, except as documented and Reports Normal hearing present Cardiovascular: Cardiovascular: Reports no additional cardiovascular complaints Respiratory: Respiratory: Reports no additional respiratory complaints and Reports no additional respiratory complaints Gastrointestinal: Gastrointestinal: Reports as per HPI and Reports no additional gastrointestinal complaints Musculoskeletal: Musculoskeletal: Reports no additional musculoskeletal complaints Integumentary/Breasts: Skin/Breast: Reports system reviewed and no additional complaints, except as docu and Reports as per HPI Neurologic: Reports system reviewed and no additional complaints, except as documented, Reports as per HPI and Reports Normal hearing present Psychiatric: Psychiatric: Reports no additional psychiatric complaints and Reports as per HPI Endocrine: Endocrine: Reports no additional endocrine complaints Hematologic/Lymphatic: Hematologic/Lymphatic: Reports no additional hematologic/lymphatic complaints Allergic/Immunologic: Allergic/Immunologic: Reports no additional allergic/immunologic complaints [facility] Past Medical History Medical History (Updated 07/12/22 @ 23:40 by Zita Khan NP) Aftercare following finger joint replacement surgery Arthralgia Asthma CHF (congestive heart failure) Chronic left shoulder pain arthritis; possibly inflammatory COPD (chronic obstructive pulmonary disease) Dementia Depression Depression with anxiety Diastolic dysfunction Enlarged ureter Fibromyalgia Fracture, rib H/O antinuclear antibodies intermittent +ABRAM to 1:320 Genevieve's thyroiditis History of abnormal electrocardiogram History of ARDS History of left heart catheterization History of migraine headaches History of nuclear stress test History of rectocele History of squamous cell carcinoma History of staph infection Hypertension NBA on CPAP Rosacea w/ ocular involvement Scolios
[2022-07-13] VITALS (19 sets, daily range): BP systolic 126–156; BP diastolic 71–88; PULSE 77–92; RESP 16–24; TEMP 36.6–36.8; O2SAT 96–100
--- NOTE | 2022-07-13 | ECHO_ITS ---
Patient Info Name: Marialuisa Darden Age: 76 years : 1945 Gender: Female Ht: 65 in Wt: 231 lbs BSA: 2.24 m2 HR: 84 bpm BP: 156 / 88 mmHg Heart Rhythm: Sinus Rhythm Technical Quality: Fair Exam Date: 07/13/2022 9:34 AM Exam Location: [facility] Patient Status: Outpatient Admit Date: 07/12/2022 Staff Ordering Physician: Zita Khan NP Bridge Ironworker Helper: Lisa Jacobson RDCS Attending Provider: Orquidea Fernández DO Referring Physician: Bill MARI; Exam Type: CA echo doppler color flow Study Info Indications - Pulmonary edema Complete two-dimensional, color flow and Doppler transthoracic echocardiogram is performed. Summary 1. Complete two-dimensional, color flow and Doppler transthoracic echocardiogram is performed. 2. Left ventricular chamber dimension is normal. 3. Left ventricular systolic function is hyperdynamic, estimated at >70%. 4. The left ventricular diastolic function is grade I diastolic dysfunction. 5. E/e' 9 is minimally elevated. 6. Left atrial chamber dimension is moderately enlarged. 7. There is mild aortic valve sclerosis. 8. No pulmonary hypertension, estimated pulmonary arterial systolic pressure is 24 mmHg. Left Ventricle E/e' 9 is minimally elevated. Left ventricular chamber dimension is normal. Left ventricular systolic function is hyperdynamic, estimated at >70%. The left ventricular diastolic function is grade I diastolic dysfunction. Right Ventricle Right ventricular systolic function is normal and with normal TAPSE 3.2 cm. Right ventricular chamber dimension is normal. Left Atria Left atrial chamber dimension is moderately enlarged. Right Atria Right atrial chamber dimension is normal. Aortic Valve The aortic valve is trileaflet. There is mild aortic valve sclerosis. There is no aortic valve stenosis. There is no aortic valve regurgitation. Pulmonic Valve There is no pulmonic regurgitation. Mitral Valve There is no mitral valve stenosis. There is no mitral valve regurgitation. Tricuspid Valve There is no tricuspid valve regurgitation. No pulmonary hypertension, estimated pulmonary arterial systolic pressure is 24 mmHg. Pericardium/Pleural There is no pericardial effusion. Inferior Vena Cava Normal inferior vena cava with >50% collapse upon inspiration consistent with normal right atrial pressure, 5 mmHg. Aorta The aortic root size at the sinus of Valsalva is normal. Left Ventricular Outflow Tract Name Value Normal LVOT 2D LVOT Diameter 2.0 cm LVOT Doppler LVOT Peak Gradient 9 mmHg LVOT Mean Gradient 4 mmHg LVOT VTI 26 cm LVOT VTI/AV VTI Ratio 0.7 LVOT Stroke Volume 81 ml LVOT CO 6.7 l/min LVOT CI 3.0 l/min/m2 Pulmonic Valve Name Value Normal RVOT Doppler RVO
[2022-07-13] MEDS: methylPREDNISolone SOD SUCC 125 MG VIAL 60 MG IV PUSH ×4 (00:09→17:05)
[2022-07-13] MEDS: IPRATROPIUM BR 0.02% INH SOLN 0.5 MG/2.5 ML VIAL INHALATION ×3 (02:30→14:39)
[2022-07-13] MEDS: LEVALBUTEROL NEB 1.25 MG/3 ML 0.63 MG INHALATION ×3 (02:30→14:39)
[2022-07-13 02:43] LABS: Lactic Acid Reflex 0.7 mmol/L (0.7-2.0)
[2022-07-13 05:00] LABS: Basophils Percent Auto 0.3 % (0.2-1.2); Hematocrit 32.7 % (37.0-47.0); Hemoglobin 10.9 g/dL (12.0-15.0); Immature Granulocyte Percent A 2.5 % (0-0.5); Lymphocytes Absolute Auto 0.35 K/mm3 (0.9-3.2); Lymphocytes Percent Auto 8.9 % (18.3-44.2); Mean Corpuscular HGB Conc 33.3 g/dl (32-36); Mean Corpuscular Hemoglobin 31.4 pg (26-34); Mean Corpuscular Volume 94.2 fl (80-100); Mean Platelet Volume 10.5 fl (7.4-10.4); Monocytes Absolute Auto 0.2 K/mm3 (0.1-0.6); Monocytes Percent Auto 3.8 % (2.6-8.5); Neutrophils Absolute Auto 3.3 K/mm3 (1.3-6.7); Neutrophils Percent Auto 84.5 % (45.5-73.1); Platelet Count Result 142 k/mm3 (150-375); Red Blood Count 3.47 M/mm3 (4.2-5.4); Red Cell Distribution Width 13.5 % (11.5-14.5); White Blood Count 3.9 K/mm3 (4.5-10.0)
[2022-07-13 05:06] LABS: Alanine Aminotransferase 20 U/L (6-35); Albumin Level 4.7 g/dL (3.5-5.1); Alkaline Phosphatase 98 U/L (38-126); Anion Gap 11 mmol/L (8-16); Aspartate Amino Transferase 32 U/L (14-36); Bilirubin,Total 1.5 mg/dL (0.2-1.3); Blood Urea Nitrogen 16 mg/dL (7-17); Calcium 9.6 mg/dL (8.4-10.2); Carbon Dioxide 26 mmol/L (22-30); Chloride 99 mmol/L (98-107); Estimated CRCL calculation 69 ml/min; Estimated Glomerular Filt Rate > 60; Glucose 145 mg/dL (65-110); Magnesium 1.8 mg/dL (1.6-2.3); Sodium 136 mmol/L (137-145)
[2022-07-13 05:07] LABS: Lactic Acid Reflex 0.6 mmol/L (0.7-2.0)
[2022-07-13] MEDS: LEVOTHYROXINE SODIUM 100 MCG, LEVOTHYROXINE SODIUM 75 MCG 175 MCG PO (05:47)
[2022-07-13 06:18] LABS: Thyroid Stimulating Hormone Reflex 0.127 uIU/mL (0.465-4.68)
[2022-07-13] MEDS: FLUTICASONE/UMECLIDIN/VILANTER 200-62.5-25 MCG ELLIPTA 1 PUFF INHALATION (08:20)
[2022-07-13] MEDS: FLUoxetine HCL 20 MG CAPSULE PO ×3 (08:36→17:05)
[2022-07-13] MEDS: GABAPENTIN 300 MG CAPSULE PO ×3 (08:36→17:05)
[2022-07-13] MEDS: amLODIPine BESYLATE 5 MG TABLET 10 MG PO (08:36)
[2022-07-13] MEDS: MONTELUKAST SODIUM 10 MG TABLET PO (08:36)
[2022-07-13] MEDS: PANTOPRAZOLE 40 MG TABLET PO (08:37)
[2022-07-13] MEDS: PRAVASTATIN SODIUM 20 MG TABLET 40 MG PO (08:37)
[2022-07-13] MEDS: NEBIVOLOL HCL 5 MG TABLET PO (08:37)
[2022-07-13] MEDS: ENOXAPARIN 40 MG/0.4 ML SYRINGE SUB-Q (08:38)
[2022-07-13] MEDS: FUROSEMIDE INJ 40 MG/4 ML VIAL 20 MG IV PUSH (08:38)
[2022-07-13] MEDS: DOCUSATE SODIUM 100 MG CAPSULE PO ×2 (08:38→17:05)
[2022-07-13] MEDS: SPIRONOLACTONE 12.5 MG TABLET PO (08:38)
[2022-07-13] MEDS: POTASSIUM CHLORIDE 10 MEQ TABLET.ER PO (08:38)
[2022-07-13] MEDS: TELMISARTAN 40 MG TABLET PO (08:38)
--- NOTE | 2022-07-13 09:09 | PM.IMPN ---
Progress Note: A&P Assessment and Plan (1) COPD (chronic obstructive pulmonary disease): Code(s): J44.9 - Chronic obstructive pulmonary disease, unspecified Status: Acute Assessment and Plan: The patient chronically wears oxygen at 2 L per nasal cannula home. She is requiring 4 L while she is here. Continue with Solu-Medrol Continue with nebulizer treatments. She also has a history of interstitial lung disease. Attempt to wean the patient back down to 2 L per nasal cannula when feasible. She is also using her home settings for CPAP which the stated is a 9. Continue with Singulair (2) Acute exacerbation of CHF (congestive heart failure): Code(s): I50.9 - Heart failure, unspecified Status: Acute Assessment and Plan: The patient was given IV Lasix. Her chest x-ray was read as Pulmonary opacities may represent interstitial pulmonary edema with bibasilar atelectasis. Small left pleural effusion. The patient stated that she is getting some relief. However getting on and off the bedpan is making her feel more short of breath. May consider a Beltran catheter. Fluid restrictions CHF teaching Strict I&O Daily weights Echo was ordered Continue Bystolic Continue with potassium milk basement with the Lasix. (3) Obstructive Sleep Apnea-Hypopnea Syndrome: Code(s): G47.33 - Obstructive sleep apnea (adult) (pediatric) Status: Acute Assessment and Plan: Patient may use a CPAP from here with a setting of 9. The patient's stated that her rate was increased to 9 at home. (4) Chronic left shoulder pain: Code(s): M25.512 - Pain in left shoulder; G89.29 - Other chronic pain Status: Chronic Assessment and Plan: Continue with home medications with lidocaine patch Continue with gabapentin (5) Hypertension: Code(s): I10 - Essential (primary) hypertension Status: Acute Assessment and Plan: Continue with by Bystolic Continue micardis Continue with Norvasc (6) Hypothyroidism: Code(s): E03.9 - Hypothyroidism, unspecified Status: Acute Assessment and Plan: Continue with levothyroxine and check thyroid level (7) Depression with anxiety: Code(s): F41.8 - Other specified anxiety disorders Status: Acute Assessment and Plan: Continue with Prozac (8) Dementia: Code(s): F03.90 - Unspecified dementia, unspecified severity, without behavioral disturbance, psychotic disturbance, mood disturbance, and anxiety Status: Acute Assessment and Plan: Continue with Aricept Plan DVT prophylaxis with Lovenox GI prophylaxis with PPI Code status full code Subjective Date/time seen: 07/13/22 09:09 Interval history: 76-year-old female with history of COPD and interstitial lung disease presenting with shortness of breath and respiratory failure. No overnight events noted. No nausea, vomiting or diarrhea. No fevers or chills. Review of Systems Review of Systems: 12 point review of systems was assessed and was negative except as noted in the HPI Exam Narrative: General: No acute distress, alert and oriented per baseline HEENT: Atraumatic, normocephalic, mucous membranes moist CV: Regular rate and rhythm, S1, S2 Lungs: Abdomen: Soft, nontender, nondistended Extremities: Normal to inspection Skin: No rashes noted, no lesions or wounds seen Psych: Euthymic, normal affect Objective Data Vital Signs Vital Signs: Vital Signs - 24 hr 07/12/22 14:45 07/12/22 15:07 07/12/22 15:07 Temperature 98.9 F Pulse Rate 81 96 Respiratory Rate 15 Blood Pressure 136/91 H Pulse Oximetry 98 98 Oxygen Delivery Nasal Cannula Nasal Cannula Oxygen Flow Rate 4 4 Fraction of Inspired Oxygen 07/12/22 14:48 07/12/22 15:01 07/12/22 15:58 Temperature Pulse Rate 85 86 96 Respiratory Rate 25 H 17 26 H Blood Pressure
[2022-07-13 09:33] LABS: Total Triiodothyronine (T3) 0.96 NG/ML (0.97-1.69)
--- NOTE | 2022-07-13 17:48 | PM.DS ---
DS: Admitting Diagnosis Discharge Date 07/13/22 Admitting Diagnosis sob DS: Discharge Diagnosis Discharge Diagnosis (1) COPD (chronic obstructive pulmonary disease): Code(s): J44.9 - Chronic obstructive pulmonary disease, unspecified Status: Acute Assessment and Plan: The patient chronically wears oxygen at 2 L per nasal cannula home. She is requiring 4 L while she is here. Continue with Solu-Medrol Continue with nebulizer treatments. She also has a history of interstitial lung disease. Attempt to wean the patient back down to 2 L per nasal cannula when feasible. She is also using her home settings for CPAP which the stated is a 9. Continue with Singulair (2) Acute exacerbation of CHF (congestive heart failure): Code(s): I50.9 - Heart failure, unspecified Status: Acute Assessment and Plan: The patient was given IV Lasix. Her chest x-ray was read as Pulmonary opacities may represent interstitial pulmonary edema with bibasilar atelectasis. Small left pleural effusion. The patient stated that she is getting some relief. However getting on and off the bedpan is making her feel more short of breath. May consider a Beltran catheter. Fluid restrictions CHF teaching Strict I&O Daily weights Echo was ordered Continue Erlinda Continue with potassium milk basement with the Lasix. (3) Obstructive Sleep Apnea-Hypopnea Syndrome: Code(s): G47.33 - Obstructive sleep apnea (adult) (pediatric) Status: Acute Assessment and Plan: Patient may use a CPAP from here with a setting of 9. The patient's stated that her rate was increased to 9 at home. (4) Chronic left shoulder pain: Code(s): M25.512 - Pain in left shoulder; G89.29 - Other chronic pain Status: Chronic Assessment and Plan: Continue with home medications with lidocaine patch Continue with gabapentin (5) Hypertension: Code(s): I10 - Essential (primary) hypertension Status: Acute Assessment and Plan: Continue with by Erlinda Continue micardis Continue with Norvasc (6) Hypothyroidism: Code(s): E03.9 - Hypothyroidism, unspecified Status: Acute Assessment and Plan: Continue with levothyroxine and check thyroid level (7) Depression with anxiety: Code(s): F41.8 - Other specified anxiety disorders Status: Acute Assessment and Plan: Continue with Prozac (8) Dementia: Code(s): F03.90 - Unspecified dementia, unspecified severity, without behavioral disturbance, psychotic disturbance, mood disturbance, and anxiety Status: Acute Assessment and Plan: Continue with Aricept Plan DVT prophylaxis with Lovenox GI prophylaxis with PPI Code status full code DS: Summary Hospital Course Hospital Course: 76-year-old female with history of COPD and interstitial lung disease presenting with shortness of breath and respiratory failure. Symptoms revolve significantly failure requested to go home to finish treatment. She was discharged on Augmentin and prednisone with her home nebulizers. She was weaned back to her home oxygen. She appeared to be euvolemic and was sent home on her home heart failure medications with close outpatient follow-up by pulmonology and Cardiology. See above and med rec for details. Time Spent with Patient Time attestation: Total time spent providing and/or coordinating discharge services: Exam Narrative: General: No acute distress, alert and oriented per baseline HEENT: Atraumatic, normocephalic, mucous membranes moist CV: Regular rate and rhythm, S1, S2 Lungs: moderate air entry, scattered wheezes Abdomen: Soft, nontender, nondistended Extremities: Normal to inspection Skin: No rashes noted, no lesions or wounds seen Psych: Euthymic, normal affect DS: Data Data Completed and Pending Labs on day of discharge: Labs from last 24 ho
== END 2022-07-13 19:03 | disposition home or self-care (01) ==
LOC: ANHED 15:22 → ANHIMU 18:54
PROVIDERS: Nurse Practitioner; Admitting Provider Student in an Organized Health Care Education/Training Program; Emergency Provider Nurse Practitioner Family; PCP Internal Medicine; Visit Provider Student in an Organized Health Care Education/Training Program
DX: J44.9 Chronic obstructive pulmonary disease, unspecified (principal); Z99.81 Dependence on supplemental oxygen; I50.9 Heart failure, unspecified; G47.33 Obstructive sleep apnea (adult) (pediatric); Z99.89 Dependence on other enabling machines and devices; G89.29 Other chronic pain; Z20.822 Contact with and (suspected) exposure to COVID-19; M25.512 Pain in left shoulder; E06.3 Autoimmune thyroiditis; J84.9 Interstitial pulmonary disease, unspecified; R07.9 Chest pain, unspecified; J45.909 Unspecified asthma, uncomplicated; I11.0 Hypertensive heart disease with heart failure; F03.90 Unspecified dementia, unspecified severity, without behavioral disturbance, psychotic disturbance, mood disturbance, and anxiety; F41.8 Other specified anxiety disorders; M79.7 Fibromyalgia; R91.8 Other nonspecific abnormal finding of lung field; R60.0 Localized edema; M41.9 Scoliosis, unspecified; M47.9 Spondylosis, unspecified; M19.012 Primary osteoarthritis, left shoulder; F10.90 Alcohol use, unspecified, uncomplicated; M35.9 Systemic involvement of connective tissue, unspecified; I35.8 Other nonrheumatic aortic valve disorders; Z87.891 Personal history of nicotine dependence; Z79.51 Long term (current) use of inhaled steroids; Z79.899 Other long term (current) drug therapy
CPT/HCPCS: 36415; 36600; 71045; 71275; 80053; 82805; 83605; 83735; 83880; 84439; 84443; 84480; 84484; 85025; 85055; 85380; 85610; 85730; 87040; 93005; 93306; 93970; 94640; 94660; 96372; 96374; 96376; 99285; A9270; G0378; J1650; J1940; J2930; Q9967; U0003; U0005

== ENCOUNTER 2022-07-19 09:44 | Outpatient (CLI) | payer MEDICARE, OTHER, SELFPAY ==
--- NOTE | ~2022-07-19 | XR_ITS ---
XR chest 2V 07/19/2022 10:18 Indication: Dyspnea Procedure: 2 view chest Comparison: Comparison to multiple prior studies sequentially, with oldest reviewed study dated 03/19. Findings: Heart size normal. There are are interstitial infiltrates of the left mid and bilateral low er lungs. No significant effusion or pneumothorax. No acute osseous abnormality. Impression: 1: Improved bilateral predominantly basilar interstitial infiltrates which may represent edema or aty pical pneumonia. Reviewed, dictated and finalized at location B. Impression: 1: Improved bilateral predominantly basilar interstitial infiltrates which may represent edema or atypical pneumonia.
== END 2022-07-19 09:45 | disposition home or self-care (01) ==
PROVIDERS: PCP Internal Medicine; Visit Provider Nurse Practitioner Family
DX: R05.9 Cough, unspecified (principal); R06.00 Dyspnea, unspecified; R91.8 Other nonspecific abnormal finding of lung field
CPT/HCPCS: 71046

== ENCOUNTER 2022-07-22 15:19 | Outpatient (CLI) | payer MEDICARE, OTHER, SELFPAY ==
--- NOTE | ~2022-07-22 | XR_ITS ---
XR chest 2V INDICATION: Interstitial lung disease. History of asthma. TECHNIQUE: 2 view chest. FINDINGS: Comparison to multiple prior studies sequentially, with oldest reviewed study dated 2021. There is mild bilateral interstitial prominence and peribronchial cuffing. There is no focal consoli dation, pleural effusion, or pneumothorax. The cardiomediastinal silhouette is normal. IMPRESSION: 1. Findings most consistent with bronchiolitis versus an atypical or viral pneumonia. Reviewed, dictated and finalized at location L. IMPRESSION: 1. Findings most consistent with bronchiolitis versus an atypical or viral pne [facility].
== END 2022-07-22 15:20 | disposition home or self-care (01) ==
PROVIDERS: PCP Internal Medicine; Visit Provider Internal Medicine
DX: J84.9 Interstitial pulmonary disease, unspecified (principal)
CPT/HCPCS: 71046

== ENCOUNTER 2022-09-20 08:54 | Outpatient (CLI) | payer MEDICARE, OTHER, SELFPAY ==
--- NOTE | ~2022-09-20 | CT_ITS ---
CT Scan of the Chest without Contrast: Clinical Indication: Interstitial lung disease Technique: Contiguous sections were acquired throughout the chest without intravenous contrast. Dose reduction technique was used on this scan by utilizing automated exposure control and iterative recon struction technique. The dose-length product (DLP) was 590.78 mGy-cm. COMPARISON: 07/12/2022 Findings: There is no evidence of any significant mediastinal, hilar or axillary lymphadenopathy. The mediastin al soft tissues appear normal. There is no evidence of pleural or pericardial effusion. There are scattered areas of interstitial thickening also probable dictation, groundglass opacity, wi th basilar, peripheral distribution. There is mild bibasilar bronchial ectasis. Images through the upper abdomen reveal pneumobilia. Impression: Chronic interstitial disease is essentially unchanged from prior exam, suggestive of UIP. Reviewed, dictated and finalized at [facility]. Impression: Chronic interstitial disease is essentially unchanged from prior exam, suggesti ve of UIP.
[2022-09-20 09:50] VITALS: PULSE 63; O2SAT 94
[2022-09-20 09:55] VITALS: PULSE 76; O2SAT 87
[2022-09-20 10:00] VITALS: PULSE 74; O2SAT 88
[2022-09-20 10:05] VITALS: PULSE 67; O2SAT 91
[2022-09-20 10:15] VITALS: PULSE 63; O2SAT 92
--- NOTE | 2022-09-20 10:50 | HOMEO2EVAL ---
Evaluation was performed at [facility] Home Oxygen Evaluation RC: Home Oxygen (O2) Evaluation Start: 09/20/22 10:44 Freq: Status: Active Protocol: RPE Activity Type Activity Date Activity User E-sign Co-sign Detail Recorded Client Recorded Date Recorded By Document 09/20/22 09:50 DJO [id number] 09/20/22 10:50 DJO Document 09/20/22 09:55 [email or web address] [id number] 09/20/22 10:50 DJO Document 09/20/22 10:00 [email or web address] [id number] 09/20/22 10:50 DJO Document 09/20/22 10:05 [email or web address] [email or web address] 09/20/22 10:50 DJO Document 09/20/22 10:15 [email or web address] [email or web address] 09/20/22 10:50 DJO 09/20/22 09/20/22 09/20/22 09:50 09:55 10:00 Home O2 Evaluation [Oxygen] -Test Phase Resting Exercise Exercise -Oxygen Delivery Room Air Room Air Nasal Cannula -Oxygen Flow Rate (L/min) 1 [Pulse Oximetry] -Pulse Oximetry (90-100 %) 94 87 L 88 L [Pulse Rate] -Pulse Rate (60-100 beats/min) 63 76 74 [Charges] -Treatment Charges O2 Evaluation - Outpatient 09/20/22 09/20/22 10:05 10:15 Home O2 Evaluation [Oxygen] -Test Phase Exercise Resting -Oxygen Delivery Nasal Cannula Room Air -Oxygen Flow Rate (L/min) 2 [Pulse Oximetry] -Pulse Oximetry (90-100 %) 91 92 [Pulse Rate] -Pulse Rate (60-100 beats/min) 67 63 [Charges] -Treatment Charges
--- NOTE | 2022-09-20 13:16 | P.PCNPFT_ITS ---
PFT Procedure Performed PFT Procedure Performed Spirometry with Pre/Post Bronchodilator Plethysmography (Lung Vol) Diffusing Cap (DLCO) Flow Vol Loop PFT Interpretation This is a pulmonary function test with pre and post-bronchodilator spirometry, plethysmography and diffusing capacity. The test was performed and results interpreted in accordance with the 2019 and 2005 ATS/ERS Task Force guidelines respectively using the Global Lung Function Initiative-2012 reference equations. Patient demonstrated good effort and cooperation. Reproducibility criteria were met. The quality of the pre bronchodilator spirometry maneuver was Grade A and post bronchodilator spirometry maneuver was Grade A. Findings: Spirometry: The contour the expiratory flow tracing is notched in all pre and post bronchodilator efforts. The contour the inspiratory flow tracing is normal. The pre bronchodilator FVC is 2.13 L, 80% predicted. The pre bronchodilator FEV1 is 1.70 L, 84% predicted. The pre bronchodilator FEV1: FVC ratio is 80%. The post bronchodilator FVC is 2.14 L, representing no change. The post bronchodilator FEV1 is 1.69 L, representing a 1% decrease. The post bronchodilator FEV1: FVC ratio 79%. Plethysmography: The total lung capacity is 3.85 L, 74% predicted. The functional residual capacity is 1.73 L, 58% predicted. The residual volume is 1.55 L, 64% predicted. Diffusing capacity: The diffusing capacity unadjusted for hemoglobin and carboxyhemoglobin is 9.5, 48% predicted. The diffusing capacity adjusted for alveolar volume is 2.72, 66% predicted. Impression: The contour of the expiratory flow tracing demonstrates a reproducible notched pattern. The notched pattern has been described with coughing or tracheobronchomalacia. The contour the inspiratory flow tracing is normal. Otherwise, the spirometry is normal without evidence of an obstructive abnormality. There is a mild restrictive ventilatory abnormality with a normal FEV1. There is no significant improvement after inhaling a single dose of albuterol. The diffusing capacity unadjusted for hemoglobin and carbo xyhemoglobin is moderately decreased and remains mildly decreased when adjusted for alveolar volume. There are no prior studies for comparison
== END 2022-09-20 08:55 | disposition home or self-care (01) ==
PROVIDERS: PCP Internal Medicine; Visit Provider Physician Assistant
DX: J84.9 Interstitial pulmonary disease, unspecified (principal); J96.11 Chronic respiratory failure with hypoxia
CPT/HCPCS: 71250; 94060; 94618; 94726; 94729

== ENCOUNTER 2022-09-24 14:29 | Emergency (ER) | payer MEDICARE, OTHER, SELFPAY ==
--- NOTE | ~2022-09-24 | XR_ITS ---
EXAM: XR hip LT 2V w AP pelvis DATE: 09/24/2022 15:35 HISTORY: trauma . COMPARISON: None available. FINDINGS: Partially visualized lumbar fusion hardware. Right femoral neck fixation screws. Bilateral ligation clips. Mineralization. No fracture or dislocation. No lytic or blastic lesion. Degenerative changes in the lumbar spine, pubic symphysis, and bilateral hips. No erosion or periosteal change. S oft tissues within normal limits. IMPRESSION: No acute osseous finding in the pelvis or left hip. Reviewed, dictated and finalized at location K.
--- NOTE | ~2022-09-24 | XR_ITS ---
EXAM: XR ankle LT min 3V, XR foot LT min 3V DATE: 09/24/2022 15:35 HISTORY: trauma . COMPARISON: None available. FINDINGS: Decreased mineralization. No fracture or dislocation. No lytic or blastic lesion. Severe h allux valgus and moderate first MTP osteoarthritis. Mild tibiotalar osteoarthritis. Small ankle joint effusion. Achilles and plantar enthesopathy. No erosion or periosteal change. Forefoot soft tissue s welling. IMPRESSION: No acute osseous finding in the left ankle or left foot. Reviewed, dictated and finalized at location K. IMPRESSION: No acute osseous finding in the left ankle or left foot.
--- NOTE | ~2022-09-24 | XR_ITS ---
EXAM: XR knee LT 3V DATE: 09/24/2022 15:35 HISTORY: trauma/ left knee pain all around . COMPARISON: 05/23/2021. FINDINGS: Uncomplicated left total knee arthroplasty Normal mineralization. No fracture or dislocatio n. No lytic or blastic lesion. Joint spaces are maintained. No erosion or periosteal change. Soft tis sues within normal limits. Small left knee joint effusion. IMPRESSION: No acute osseous finding in the left knee. Reviewed, dictated and finalized at location K.
[2022-09-24 14:27] VITALS: BP 131/72; PULSE 70; RESP 14; O2SAT 97
[2022-09-24 15:13] LABS: Hematocrit 30.2 % (37.0-47.0); Hemoglobin 9.8 g/dL (12.0-15.0); Mean Corpuscular HGB Conc 32.5 g/dl (32-36); Mean Corpuscular Hemoglobin 31.4 pg (26-34); Mean Corpuscular Volume 96.8 fl (80-100); Platelet Count Result 158 k/mm3 (150-375); Red Blood Count 3.12 M/mm3 (4.2-5.4); Red Cell Distribution Width 13.8 % (11.5-14.5); White Blood Count 10.3 K/mm3 (4.5-10.0)
[2022-09-24 15:21] LABS: Alanine Aminotransferase 18 U/L (6-35); Alkaline Phosphatase 79 U/L (38-126); Anion Gap 9 mmol/L (8-16); Aspartate Amino Transferase 24 U/L (14-36); Blood Urea Nitrogen 13 mg/dL (7-17); Calcium 9.2 mg/dL (8.4-10.2); Carbon Dioxide 25 mmol/L (22-30); Chloride 98 mmol/L (98-107); Estimated CRCL calculation 65 ml/min; Estimated Glomerular Filt Rate > 60; Glucose 115 mg/dL (65-110); Potassium 4.1 mmol/L (3.4-5.0); Sodium 132 mmol/L (137-145)
[2022-09-24 15:25] LABS: INR 1.1; Prothrombin Time 14.3 Seconds (11.1-14.7)
[2022-09-24] MEDS: HYDROcodone/acetaminophen (*CRX) 5-325 MG TABLET 1 TAB PO (15:37)
[2022-09-24 15:40] LABS: Band Neutrophils Percent 1 % (0-6); Lymphocytes Absolute Manual 0.92 K/mm3 (1.1-4.5); Lymphocytes Percent Manual 9 % (18-44); Monocytes Absolute Manual 2.57 K/mm3 (0.1-0.90); Monocytes Percent Manual 25 % (3-9); Neutrophils Absolute Manual 6.79 K/mm3 (1.7-7.2); Neutrophils Percent Manual 65 % (46-73); Total Cells Counted 100
[2022-09-24 15:41] LABS: Ovalocytes 1+ (NORMAL); Platelet Estimate Adequate (Adequate); Schistocytes None Seen (NORMAL)
[2022-09-24 15:42] LABS: Hypersegmented Neutrophils Present
--- NOTE | 2022-09-24 16:48 | ED.FALL ---
HPI - Fall General Chief Complaint: Fall Stated Complaint: GLF yest, LLE pain/swelling Time Seen by Provider: 09/24/22 14:32 History of Present Illness HPI Narrative: Patient is a 77-year-old female with history of dementia who presents ER with left lower extremity pain. She had a ground-level fall yesterday. Witnessed by her . She did not strike her head or lose consciousness. She is able to get back up and get in bed. She developed bruising and swelling of her ankle and has developed pain in her left knee. This is left her level and having difficulty trying to get out of bed. Patient is unable to walk with a walker at home. She was sent in for evaluation for possible fracture. Patient is chronically O2 dependent. Related Data Home Medications Medication Instructions Recorded Confirmed amlodipine 10 mg tablet 10 mg PO DAILY 05/23/21 08/31/22 fluoxetine 20 mg capsule 20 mg PO TID 05/23/21 08/31/22 furosemide 20 mg tablet 20 mg PO DAILY 05/23/21 08/31/22 gabapentin 300 mg capsule 300 mg PO TID 05/23/21 08/31/22 pantoprazole 40 mg tablet,delayed 40 mg PO BID 05/23/21 08/31/22 release potassium chloride 10 mEq 10 meq PO DAILY 05/23/21 08/31/22 tablet,extended release docusate sodium 100 mg capsule 100 mg PO BID 11/18/21 08/31/22 donepezil 5 mg tablet 5 mg PO QHS 11/18/21 08/31/22 fluticasone fur. 200 mcg-umeclid 1 inh inhalation DAILY 11/18/21 08/31/22 62.5 mcg-vilant 25 mcg inhalat.powder (Trelegy Ellipta) lidocaine 5 % topical patch 1 patch topical DAILY 11/18/21 08/31/22 montelukast 10 mg tablet 10 mg PO DAILY 11/18/21 08/31/22 pravastatin 40 mg tablet 40 mg PO DAILY 11/18/21 08/31/22 diclofenac sodium 1 % topical gel 4 g topical QID PRN Pain 05/13/22 08/31/22 (Arthritis Pain (diclofenac)) nebivolol 5 mg tablet 5 mg PO DAILY 05/13/22 08/31/22 olopatadine 0.1 % eye drops 1 drp EACH EYE BID PRN Allergy 05/13/22 08/31/22 Symptoms telmisartan 40 mg tablet 40 mg PO BID 05/13/22 08/31/22 spironolactone 25 mg tablet 12.5 mg PO DAILY 06/15/22 08/31/22 Allergies Allergy/AdvReac Type Severity Reaction Status Date / Time clindamycin Allergy Severe Chills Verified 09/24/22 14:40 diazepam Allergy Severe suicidal Verified 09/24/22 14:40 ideation levofloxacin [From Levaquin] Allergy Intermediate Itching Verified 09/24/22 14:40 cat dander Allergy Unknown Unknown Verified 09/24/22 14:40 dog dander Allergy Unknown Unknown Verified 09/24/22 14:40 feathers Allergy Unknown Unknown Verified 09/24/22 14:40 grass pollen Allergy Unknown Unknown Verified 09/24/22 14:40 house dust Allergy Unknown unknown Verified 09/24/22 14:40 Rabbit Allergy Unknown Unknown Verified 09/24/22 14:40 tree and shrub pollen Allergy Unknown Unknown Verified 09/24/22 14:40 meperidine [From Demerol] Allergy Hallucinati Verified 08/31/22 15:01 ng oxycodone [From Percocet] Allergy Nausea Verified 08/31/22 15:01 propoxyphene Allergy Nausea and Verified 08/31/22 15:01 Vomiting Review of Systems Review of Systems: ROS unobtainable: Yes unobtainable due to mental status Musculoskeletal: Musculoskeletal: Reports arthralgias and Reports joint swelling Integumentary/Breasts: Skin/Breast: Denies erythema and Denies rash Comments: Bruising noted Neurologic: Denies focal weakness and Denies numbness PMFSH Past Medical History Medical History Aftercare following finger joint replacement surgery Arthralgia Asthma CHF (congestive heart failure) Chronic left shoulder pain arthritis; possibly inflammatory COPD (chronic obstructive pulmonary disease) Dementia Depression Depression with anxiety Diastolic dysfunction Enlarged ureter Fibromyalgia Fracture, rib H/O antinuclear antibodies intermittent +ABRAM to 1:320 Genevieve's thyroiditis History of abnormal electrocardiogram History of ARDS History of left heart catheterization History of migraine headaches History of nuc
== END 2022-09-24 17:30 | disposition home or self-care (01) ==
PROVIDERS: Emergency Provider Emergency Medicine; PCP Internal Medicine
DX: S93.402A Sprain of unspecified ligament of left ankle, initial encounter (principal); S89.92XA Unspecified injury of left lower leg, initial encounter; F03.90 Unspecified dementia, unspecified severity, without behavioral disturbance, psychotic disturbance, mood disturbance, and anxiety; I50.9 Heart failure, unspecified; I11.0 Hypertensive heart disease with heart failure; J44.9 Chronic obstructive pulmonary disease, unspecified; E06.3 Autoimmune thyroiditis; G47.33 Obstructive sleep apnea (adult) (pediatric); M79.7 Fibromyalgia; F41.8 Other specified anxiety disorders; Z99.81 Dependence on supplemental oxygen; Z96.659 Presence of unspecified artificial knee joint; Z98.1 Arthrodesis status; Z85.828 Personal history of other malignant neoplasm of skin; Z87.891 Personal history of nicotine dependence; Z90.49 Acquired absence of other specified parts of digestive tract; Z90.710 Acquired absence of both cervix and uterus; W18.30XA Fall on same level, unspecified, initial encounter
CPT/HCPCS: 36415; 73502; 73562; 73610; 73630; 80053; 85025; 85610; 85730; 99284; A9270

== ENCOUNTER 2023-02-05 09:38 | Outpatient (CLI) | payer MEDICARE, OTHER, SELFPAY ==
--- NOTE | ~2023-02-05 | MR_ITS ---
MRI of the lumbar spine Clinical History: Radiculopathy Technique: Axial T2-weighted images, and sagittal T1-weighted, T2-weighted, and T2 fat-sat images wer e acquired. Findings: There is dextroscoliosis of the thoracolumbar spine. There is posterior fusion hardware ext ending from L2 through L5, with bilateral rods and transpedicular screws present. No suspicious bone marrow signal abnormality clearly identified. No acute fracture evident. At L1-L2, there is severe degenerative disc narrowing. There is disc bulge and advanced facet arthrop athy, resulting in moderate central canal stenosis. There is severe right neural foraminal narrowing, with probable moderate left neural foraminal narrowing. At L2-L3, there is minimal disc bulge with moderate facet arthropathy. No central canal stenosis. The re is moderate left neural foraminal narrowing. Right neural foramen preserved. At L3-L4, there is no disc bulge or herniation. There is advanced facet arthropathy. No central canal stenosis. Probable mild right neural foraminal narrowing. Left neural foramen preserved. L4-L5, there is partial fusion across the disc space. No disc bulge or herniation evident. No spinal canal stenosis. There is moderate to severe right neural foraminal narrowing. Left neural foramen pre served. At L5-S1, there is advanced degenerative disc disease, diffuse disc bulge and severe facet arthropath y. There is moderate to advanced spinal canal stenosis at this level. There is advanced bilateral paul ral foraminal narrowing, right worse than left. Paravertebral soft tissues are unremarkable. Impression: Dextroscoliosis with posterior fusion from L2 through L5, as detailed above. Moderate to advanced degenerative spondylosis, as detailed above. Reviewed, dictated and finalized at [facility]. TION EXPERT Impression: Dextroscoliosis with posterior fusion from L2 through L5, as detailed above. Moderate to advanced degenerative spondylosis, as detailed above.
== END 2023-02-05 09:39 ==
PROVIDERS: PCP Internal Medicine; Visit Provider Anesthesiology Pain Medicine
DX: M47.26 Other spondylosis with radiculopathy, lumbar region (principal); Z98.1 Arthrodesis status
CPT/HCPCS: 72148

== ENCOUNTER 2023-03-18 13:47 | Outpatient (CLI) | payer MEDICARE, OTHER, SELFPAY ==
--- NOTE | ~2023-03-18 | CT_ITS ---
CT Scan of the Chest without Contrast: Clinical Indication: Interstitial pulmonary disease Technique: Contiguous sections were acquired throughout the chest without intravenous contrast. Dose reduction technique was used on this scan by utilizing automated exposure control and iterative recon struction technique. The dose-length product (DLP) was 412.30 mGy-cm. COMPARISON: 09/20/2022 Findings: There is no evidence of any significant mediastinal, hilar or axillary lymphadenopathy. The mediastin al soft tissues appear normal. There is no evidence of pleural or pericardial effusion. Patchy bilateral interstitial thickening, as well as mosaic attenuation pattern of the lungs versus a reas of air trapping, and minimal groundglass opacity, are all essentially stable from prior exam. Images through the upper abdomen reveal no abnormalities. Impression: Chronic interstitial changes, as noted above, essentially stable from prior exam. Reviewed, dictated and finalized at [facility]. MBLER CARDS AND ANNOUNCEMENTS Impression: Chronic interstitial changes, as noted above, essentially stable from prior exa m.
--- NOTE | 2023-03-18 16:28 | WPDPFTINT ---
PFT Procedure Performed PFT Procedure Performed Spirometry with Pre/Post Bronchodilator Plethysmography (Lung Vol) Diffusing Cap (DLCO) Flow Vol Loop PFT Interpretation This is a pulmonary function test with pre and post-bronchodilator spirometry, plethysmography and diffusing capacity. The test was performed and results interpreted in accordance with the 2019 and 2005 ATS/ERS Task Force guidelines respectively using the Global Lung Function Initiative-2012 reference equations. Patient demonstrated good effort and cooperation. Reproducibility criteria were met. The quality of the pre bronchodilator spirometry maneuver was Grade A and post bronchodilator spirometry maneuver was Grade A. Findings: Spirometry: There is a mid expiratory plateau referred to as the knee pattern in all 3 pre bronchodilator efforts and in 2 of 3 post bronchodilator efforts. The contour the inspiratory flow tracing is normal. The pre bronchodilator FVC is 2.11 L, 79% predicted. The pre bronchodilator FEV1 is 1.68 L, 83% predicted. The pre bronchodilator FEV1: FVC ratio is 79%. The post bronchodilator FVC is 2.13 L, representing 1% increase. The post bronchodilator FEV1 is 1.73 L, representing a 3% increase. The post bronchodilator FEV1: FVC ratio is 81%. Plethysmography: The total lung capacity is 3.06 L, 59% predicted. The functional residual capacity is 0.88 L, 29% predicted. The residual volume is 0.73 L, 30% predicted. Diffusing capacity: The diffusing capacity unadjusted for hemoglobin and carboxyhemoglobin is 9.3, 47% predicted. The diffusing capacity adjusted for alveolar volume is 2.68, 65% predicted. Impression: The expiratory flow tracing demonstrates a reproducible knee pattern which can be a normal variant or pathologic and has been attributed to a choke point section of the bronchial tree. The normal variant is more common in younger female patients, decreases with age and is more pronounced in the post bronchodilator efforts. The pattern has also been described with kyphosis, kyphoscoliosis, central obstructing mass, and post lung transplantation. There is a mild restrictive ventilatory abnormality with a normal FEV1. The spirometry is normal without evidence of an obstructive abnormality. There is no significant improvement after inhaling a single dose of albuterol. The diffusing capacity unadjusted for hemoglobin and carboxyhemoglobin is moderately decreased and remains mildly decreased when adjusted for alveolar volume. There are no prior studies for comparison
== END 2023-03-18 13:48 | disposition home or self-care (01) ==
LOC: ANHPFT 13:49
PROVIDERS: PCP Internal Medicine; Visit Provider Internal Medicine Pulmonary Disease
DX: J61 Pneumoconiosis due to asbestos and other mineral fibers (principal)
CPT/HCPCS: 71250; 94060; 94375; 94726; 94729

== ENCOUNTER 2023-08-08 12:16 | Outpatient (CLI) | payer MEDICARE, OTHER, SELFPAY ==
[2023-08-08 13:35] LABS: Basophils Percent Auto 0.4 % (0.2-1.2); Hematocrit 31.4 % (37.0-47.0); Hemoglobin 10.3 g/dL (12.0-15.0); Immature Granulocyte Absolute 0.03 K/mm3 (0.00-0.031); Immature Granulocyte Percent A 0.5 % (0-0.5); Lymphocytes Absolute Auto 0.75 K/mm3 (0.9-3.2); Lymphocytes Percent Auto 13.7 % (18.3-44.2); Mean Corpuscular HGB Conc 32.8 g/dl (32-36); Mean Corpuscular Hemoglobin 30.6 pg (26-34); Mean Corpuscular Volume 93.2 fl (80-100); Mean Platelet Volume 10.6 fl (7.4-10.4); Monocytes Absolute Auto 1.4 K/mm3 (0.1-0.6); Monocytes Percent Auto 25.9 % (2.6-8.5); Neutrophils Absolute Auto 3.3 K/mm3 (1.3-6.7); Neutrophils Percent Auto 59.5 % (45.5-73.1); Platelet Count Result 151 k/mm3 (150-375); Red Blood Count 3.37 M/mm3 (4.2-5.4); Red Cell Distribution Width 13.9 % (11.5-14.5); White Blood Count 5.5 K/mm3 (4.5-10.0)
[2023-08-08 13:42] LABS: Alanine Aminotransferase 14 U/L (6-35); Albumin Level 4.2 g/dL (3.5-5.1); Alkaline Phosphatase 68 U/L (38-126); Anion Gap 7 mmol/L (4-12); Aspartate Amino Transferase 25 U/L (14-36); Bilirubin,Total 0.9 mg/dL (0.2-1.3); Blood Urea Nitrogen 11 mg/dL (7-17); Calcium 9.5 mg/dL (8.4-10.2); Carbon Dioxide 24 mmol/L (22-30); Chloride 99 mmol/L (98-107); Estimated Glomerular Filt Rate > 60; Glucose 96 mg/dL (65-110); Potassium 4.4 mmol/L (3.4-5.0); Sodium 130 mmol/L (137-145)
[2023-08-08 14:20] LABS: Burr Cells 1+; Ovalocytes 1+; Platelet Estimate Adequate (Adequate); Poikilocytosis 2+; Schistocytes None Seen
== END 2023-08-08 12:17 | disposition home or self-care (01) ==
PROVIDERS: PCP Internal Medicine; Visit Provider Internal Medicine
DX: J84.9 Interstitial pulmonary disease, unspecified (principal); D63.8 Anemia in other chronic diseases classified elsewhere
CPT/HCPCS: 36415; 80053; 85025

== ENCOUNTER 2023-08-15 12:41 | Outpatient (CLI) | payer MEDICARE, OTHER, SELFPAY ==
[2023-08-15 13:30] LABS: Basophils Percent Auto 0.5 % (0.2-1.2); Hematocrit 31.7 % (37.0-47.0); Hemoglobin 10.4 g/dL (12.0-15.0); Immature Granulocyte Absolute 0.06 K/mm3 (0.00-0.031); Lymphocytes Absolute Auto 0.81 K/mm3 (0.9-3.2); Lymphocytes Percent Auto 13.8 % (18.3-44.2); Mean Corpuscular HGB Conc 32.8 g/dl (32-36); Mean Corpuscular Hemoglobin 30.5 pg (26-34); Mean Platelet Volume 10.5 fl (7.4-10.4); Monocytes Absolute Auto 1.4 K/mm3 (0.1-0.6); Monocytes Percent Auto 23.5 % (2.6-8.5); Neutrophils Absolute Auto 3.6 K/mm3 (1.3-6.7); Neutrophils Percent Auto 61.2 % (45.5-73.1); Platelet Count Result 157 k/mm3 (150-375); Red Blood Count 3.41 M/mm3 (4.2-5.4); Red Cell Distribution Width 13.7 % (11.5-14.5); Reticulocyte Hemoglobin Conten 32.6 pg (28.2-36.6); Reticulocyte Percent 1.66 % (0.7-4.3); Reticulocytes Absolute 0.06 10^6/uL (0.02-0.10); White Blood Count 5.9 K/mm3 (4.5-10.0)
[2023-08-15 13:47] LABS: Anion Gap 4 mmol/L (4-12); Blood Urea Nitrogen 12 mg/dL (7-17); Calcium 9.6 mg/dL (8.4-10.2); Carbon Dioxide 25 mmol/L (22-30); Chloride 103 mmol/L (98-107); Estimated Glomerular Filt Rate > 60; Glucose 97 mg/dL (65-110); Potassium 4.5 mmol/L (3.4-5.0); Sodium 132 mmol/L (137-145)
[2023-08-15 13:55] LABS: Iron 78 ug/dL (37-170)
[2023-08-15 13:58] LABS: Ovalocytes 2+; Platelet Estimate Adequate (Adequate)
[2023-08-15 13:59] LABS: Acanthocytes 1+; Schistocytes Rare
[2023-08-15 14:00] LABS: Hypochromasia 2+; Tear Drop Cells 1+
[2023-08-15 14:54] LABS: Folic Acid 3.5 ng/mL (2.76->20)
== END 2023-08-15 12:42 | disposition home or self-care (01) ==
PROVIDERS: PCP Internal Medicine; Visit Provider Internal Medicine
DX: D64.9 Anemia, unspecified (principal); E87.1 Hypo-osmolality and hyponatremia
CPT/HCPCS: 36415; 80048; 82607; 82728; 82746; 83540; 85025; 85046

== ENCOUNTER 2023-09-13 10:46 | Outpatient (CLI) | payer MEDICARE, OTHER, SELFPAY ==
--- NOTE | ~2023-09-13 | MMUS_ITS ---
EXAMINATION: MM diagnostic russ BI w jesus, US breast LT complete HISTORY: Left breast fullness per patient. No discrete palpable abnormality. TECHNIQUE: Additional 3-D tomosynthesis images of the breasts were performed and synthetic 2-D images were generated. CAD analysis was submitted and interpreted. High resolution complete left breast ult rasound was performed. COMPARISON: None BREAST PARENCHYMAL COMPOSITION: Not dense: There are scattered areas of fibroglandular density. FINDINGS: MAMMOGRAPHIC FINDINGS: The breasts are symmetric. There are no suspicious masses, calcifications or architectural distortion in either breast to suggest malignancy. ULTRASOUND: Complete US of all 4 quadrants of the left breast and retroareolar region was reviewed. Normal hetero geneous echotexture without focal solid or cystic mass. IMPRESSION: 1. No evidence for malignancy in either breast. 2. Routine yearly screening mammogram and regular clinical breast examination are recommended. BI-RADS Category 1: Negative Reviewed, dictated and finalized at location B. IMPRESSION: 1. No evidence for malignancy in either breast. 2. Routine yearly screening mammogram and regular clinical breast examination a re recommended. BI-RADS Category 1: Negative
== END 2023-09-13 10:47 | disposition home or self-care (01) ==
LOC: ANHIMG 10:48
PROVIDERS: PCP Internal Medicine; Visit Provider Internal Medicine
DX: N64.4 Mastodynia (principal)
CPT/HCPCS: 76641; 77062; 77066; G0279

== ENCOUNTER 2023-11-28 00:23 | Day surgery (SDC) | payer MEDICARE, OTHER, SELFPAY ==
[2023-11-21 10:27] VITALS: BMI 39.4
--- NOTE | 2023-11-21 10:28 | PC.NURSE ---
Report to the Outpatient Waiting Room, entrance under the green pavilion located off [facility], at time _0800_ on date _[id number]_. Planned Procedure Time: _0900_.? Time changes happen often and if your time is changed the preop area will call you the afternoon before. - You and your visitor will be asked to self-screen and do not enter if you have any COVID symptoms. Please call surgeon if you need to reschedule. - A mask is optional within the hospital at this time. Light breakfast early then nothing to eat or drink after 7am. Take only the following medications with a SIP of water on the morning of surgery: Please take morning medicines. DO NOT STOP ANY OF YOUR OTHER PRESCRIPTION MEDICATIONS PRIOR TO SURGERY EXCEPT THE FOLLOWING Medications to discontinue per physician ___None____ Please no make-up, nail serbian, hairspray, perfume, deodorant, or body powder the day of surgery.? No jewelry (including any body piercings) or valuables the day of surgery, leave them at home.? Please take a shower or bath the night before, or the morning of, surgery with an antibacterial soap.? Wear comfortable, loose fitting clothing.? - Jewelry must be removed prior to entering the operating room.? Rings and piercings that are not removed may be cut off. - The hospital will not accept responsibility for valuables.? - Please leave all valuables, including medications, at home the day of surgery. If you are going home after surgery, a licensed passenger coach driver must drive you home.? - NO public transportation without another adult if you receive anesthesia. - We recommend that an adult stay with you for 24 hours following discharge. - We also recommend that you do not drive, make important decision, drink alcoholic beverages, or take any drugs that were not prescribed by your health care provider for at least 24 hours after your discharge time. Follow any additional instructions given to you from your surgeon. Telephone instructions given to _Marialuisa and Khang__and asked if any additional questions and then verbalized understanding. Patient advised to call surgeon office or pre surgery nurse liaison [phone] if any additional questions.
--- NOTE | 2023-11-25 15:01 | PHAR ---
Medication Verified: Hydromorphone 0.25mg/ml 2ml syringe from [facility]. Kept in Pharmacy until requested by surgery with all paperwork from compounding pharmacy. For intrathecal use only
[2023-11-28] VITALS (12 sets, daily range): BP systolic 113–164; BP diastolic 49–107; PULSE 56–65; RESP 12–20; TEMP 36.8–37.2; O2SAT 94–99; BMI 38.4
--- NOTE | ~2023-11-28 | XR_ITS ---
EXAMINATION: XR fluoroscopy no charge DATE: 11/28/2023 12:42 INDICATION: Epidural. Bullous by epidural catheter placement TECHNIQUE: 5 fluoroscopic images of the thoracolumbar junction of the spine were obtained during proc edure performed by Dr. Daniel. Radiologist was not present for the imaging or procedure. The amount of fluoroscopy time used during this procedure was 0.3 minutes. Total DAP was 2.58 Gycm^2 COMPARISON: Chest CT dated 03/18/2023 FINDINGS: Initial image demonstrates a focal levoscoliosis centered at L1 where there is is chronic 50% right-s ided vertebral body height loss. Severe lower thoracic and upper lumbar spondylosis. Partially visual ized bilateral vertical bryant and pedicle screws at L2 and L3 which appear to extend beyond the caudal margin of the field of imaging. Cholecystectomy clips in right upper quadrant. Subsequent images demo nstrate needle tip extending into the epidural space via an interspinous approach at T11-T12. Injecte d contrast opacifies the epidural space anterior and posterior to the thecal sac. IMPRESSION: 1. Fluoroscopy utilized during epidural injection by interspinous approach at T11-T12. See procedure note for further detail. Reviewed, dictated and finalized at location A. IMPRESSION: 1. Fluoroscopy utilized during epidural injection by interspinous approach at T 11-T12. See procedure note for further detail.
--- NOTE | 2023-11-28 06:40 | PM.HPGS ---
History of Present Illness History of Present Illness Consent: Risks, benefits, and alternatives have been discussed and questions answered. Patient agrees to proceed with procedure. Chief complaint: lumbar post laminectomy syndrome, chronic pain Narrative: Mariaulisa Darden is a 78 year old female with chronic, recalcitrant and disabling bilateral lumbosacral back and lower extremity pain secondary to degenerative spondylosis, lumbar post laminectomy syndrome, chronic lumbar radiculopathy, generalized osteoarthritis with failure to respond to aggressive conservative measures including PT, oral and topical analgesics, opioid and nonopioid analgesics, rest, time and activity/behavioral modification over the past 1-2 years who presents for diagnostic/ prognostic epidural opioid bolus trial ( pain pump trial) under fluoroscopic guidance and with contrast control. Review of Systems Review of Systems: Patient denies any new infectious, allergic, cardiopulmonary, neurologic or constitutional symptoms or changes in activity tolerance or exercise capacity including new or progressive SOB/MCGOWAN, peripheral edema, productive cough, dysuria, nausea/vomiting, diarrhea, weight change, fevers/chills/night sweats, new or progressive neurologic deficit, cognitive or mood changes since last seen, except as documented in the HPI. All systems reviewed & are unremarkable except as noted in HPI and below PMFSH Past Medical History Medical History Aftercare following finger joint replacement surgery Arthralgia Asthma CHF (congestive heart failure) Chronic left shoulder pain arthritis; possibly inflammatory COPD (chronic obstructive pulmonary disease) Dementia Depression Depression with anxiety Diastolic dysfunction Enlarged ureter Fibromyalgia Fracture, rib H/O antinuclear antibodies intermittent +ABRAM to 1:320 Genevieve's thyroiditis History of abnormal electrocardiogram History of ARDS History of left heart catheterization History of migraine headaches History of nuclear stress test History of rectocele History of squamous cell carcinoma History of staph infection Hypertension NBA on CPAP Rosacea w/ ocular involvement Scoliosis Spondylosis of cervical spine Supplemental oxygen dependent Thyroiditis Tubal ligation evaluation Undifferentiated connective tissue disease Vascular disorder seronegative collagen disorder Surgical History Surgical History H/O hernia repair 1947 History of cholecystectomy History of D&C History of ERCP History of fusion of lumbar spine History of hip surgery right History of hysterectomy History of laminectomy History of removal of pigmented skin lesion History of surgical removal of ganglion cyst 1960 History of total knee replacement History of tubal ligation Previous back surgery S/P peroneal tendon repair Total knee replacement status Family History Family History Unknown No problems noted. Social History Social History Social History: She lives with her and has 3 biologic children. She also has 1 adopted child. 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 She is a former smoker. Code status full code Smoking packs per day: 1 Smoking cigarettes per day: 20.0 Years smoked: 15 Smoking pack-years: 15.00 Smoking status: Former smoker Tobacco type: cigarettes Smoking end date: 11/20/81 Additional smoking assessment comments: quit 1982 Alcohol intake: current Alcohol use details: 0-1 per week Substance use: never Substance use type: does not use Lack of Transportation: No Lack of Food: Never True Current Housing: I Have Housing Concerned About Fut
--- NOTE | 2023-11-28 06:57 | W.PM.PROC2 ---
Procedure Note - Detailed Date of Procedure 11/28/23 Pre-op Diagnosis lumbar post laminectomy syndrome, chronic pain Post-op Diagnosis Same Procedure Performed Leftward Lumbar Interlaminar Epidural Needle Placement at T12-L1 for Epidural Bolus of Opioid Analgesic (Pump Trial) under Fluoroscopic Guidance with Contrast Control. Surgeon Augustus Daniel MD Anesthesia Local Description of Procedure INFORMED CONSENT: Risks, benefits and alternatives to the procedure were discussed in detail with the patient who expressed explicit understanding and consent to proceed. Patient was informed verbally and in written form regarding the risks associated with the procedure including the low risk of serious infection, bleeding/bruising, allergic reaction, nerve or organ injury, paralysis, procedural site pain or discomfort, worsening pain and/or mobility, failure to treat and/or disfigurement. The patient expressed explicit understanding and consent to proceed. All materials required for the procedure were available prior to procedure start. Site and side were marked prior to procedure and confirmed in the presence of the patient. PROCEDURE IN DETAIL: The patient was brought to the procedural suite and placed in the prone position. Patient was made comfortable with use of pillows under the head/chest, hips and ankles. Appropriate monitoring initiated. Skin overlying the injection site was prepared broadly with ChloraPrep applicator and draped in a sterile manner. Aseptic technique was employed throughout. The endplates of the vertebral body at the site of interest were aligned in the AP view. Slight caudal tilt and ipsilateral oblique angulation was utilized to optimize visualization of the targeted posterior intervertebral foramen (L1-2). Local anesthesia was established by infiltration with approximately 5 mL of 0.5% lidocaine via a 1-1/2 inch 27-gauge needle. An 18-gauge 4-inch Tuohy epidural needle was advanced intermittently until appropriate loss of resistance to air was identified via plastic loss of resistance syringe. Lateral view was used to confirm the appropriate positioning of the needle tip within the posterior epidural space. In the AP view, 2.0 mL of Omnipaque 300 contrast medium was injected after negative aspiration for CSF, blood or other bodily fluid, showing appropriate epidural spread of contrast without evidence of intravascular or intrathecal placement. 1.0 ml of a 0.25mg/ml aqueous solution of preservative free hydromorphone (0.25mg total) was injected after negative repeat aspiration. Appropriate spread of the injectate was confirmed with washout of previously injected contrast. No parasthesias were elicited. Needle was removed over the catheter without difficulty. Images were saved and documented in the patient chart. Patient's skin was cleaned and sterile bandage applied. The patient tolerated the procedure well. The patient was transported to the recovery area in stable condition where they were observed and monitored (RR, HR, BP, O2 Sats, Pain level) for an appropriate amount of time prior to discharge, without evidence of complication. After approximately one hour, the patient was evaluated for neurologic deficit, pain relief and side effects with results as below. At the end of the same day trial, the patient demonstrated no immediate complications and was without paresthesia, signs of bleeding, CSF leak or new neurologic deficit. Patient instructed to remain in the presence of a responsible adult to monitor for the next 48 hours. The patient was instructed to avoid excessive activity for the next 48 hours, including climbing and frequent use of stairs. Showers only for 48 hours. They were instructed not to drive or operate heavy machinery for 24 hours. They are to monitor for pruritus, sedation/confusion, severe headaches, fevers, chills, night sweats, erythema/swelling at the site or any other signs of infection, bleeding/bruising, bowel or bladde
--- NOTE | 2023-11-28 11:59 | WPDHPUPDATE1 ---
History and Physical Update Update Date/Time: 11/28/23 11:59 History and Physical has been reviewed, including an updated exam of the patient. There are NO changes in the patient's condition. Risks, benefits, and alternatives have been discussed and questions answered. Patient agrees to proceed with procedure.
[2023-11-28] MEDS: LIDOCAINE HCL 1% PF INJ 5 ML VIAL 3 ML INFILTRATE (12:28)
--- NOTE | 2023-11-28 12:31 | SUR.PHASEI ---
This RN spoke with Dr. Daniel regarding clarification on patient monitoring and d/c. Per Dr Daniel he would like her to be monitored in PACU for 1 hour and may be moved to outpatient recovery and discharged home as long as she meets protocol d/c criteria.
--- NOTE | 2023-11-28 14:21 | SUR.PHASEII ---
Notified Dr. Daniel of patient's complain of nausea, dizziness, and diaphoresis. Dr. Daniel stated for patient to call office tomorrow if she's not feeling better.
[2023-11-28] MEDS: ONDANSETRON INJ 4 MG/2 ML VIAL IV PUSH (14:29)
== END 2023-11-28 15:16 | disposition home or self-care (01) ==
PROVIDERS: PCP Internal Medicine; Visit Provider Anesthesiology Pain Medicine
PROC: 00HU33Z Insertion of Infusion Device into Spinal Canal, Percutaneous Approach (ICD-10-PCS; CPT 62321; principal; 2023-11-28 13:30)
DX: M96.1 Postlaminectomy syndrome, not elsewhere classified (principal); M47.892 Other spondylosis, cervical region; I11.0 Hypertensive heart disease with heart failure; I50.30 Unspecified diastolic (congestive) heart failure; E06.3 Autoimmune thyroiditis; G47.33 Obstructive sleep apnea (adult) (pediatric); M41.9 Scoliosis, unspecified; J44.9 Chronic obstructive pulmonary disease, unspecified; M25.512 Pain in left shoulder; G89.29 Other chronic pain; F03.90 Unspecified dementia, unspecified severity, without behavioral disturbance, psychotic disturbance, mood disturbance, and anxiety; F41.8 Other specified anxiety disorders; Z79.51 Long term (current) use of inhaled steroids; Z99.81 Dependence on supplemental oxygen; Z99.89 Dependence on other enabling machines and devices; Z98.890 Other specified postprocedural states; Z90.49 Acquired absence of other specified parts of digestive tract; Z98.1 Arthrodesis status; Z98.51 Tubal ligation status; Z95.5 Presence of coronary angioplasty implant and graft; Z87.891 Personal history of nicotine dependence; Z85.828 Personal history of other malignant neoplasm of skin
CPT/HCPCS: 62321; 99199; J2405; Q9965

== ENCOUNTER 2023-12-02 08:04 | Outpatient (CLI) | payer MEDICARE, OTHER, SELFPAY ==
--- NOTE | ~2023-12-02 | CT_ITS ---
EXAMINATION: CT abdomen pelvis w con DATE: 12/02/2023 08:39 INDICATION: Left lower quadrant abdominal mass. TECHNIQUE: Computed tomography (CT) of the abdomen and pelvis was performed with 100 cc Omnipaque 350 intravenous contrast. The dose-length product was 1444.28 mGy-cm. Automated exposure control and ite rative reconstruction technique were employed. COMPARISON: None. FINDINGS: Heart size normal. No significant pleural or pericardial effusion. There are coarse interst itial changes of the lower lungs, likely chronic fibrosis. Mild atherosclerosis without aneurysm. The re is small fat-containing right inguinal hernia. There is a left lower lateral abdominal Wall hernia containing nonobstructed small bowel. Status post cholecystectomy with pneumobilia. The s pleen, pancreas, adrenal glands are unremarkable. There are small subcentimeter hypodensities of both kidneys, most likely statistically benign. There is expected prominence of the bile ducts postcholec ystectomy. Nonobstructive bowel gas pattern. No abnormal pelvic masses or fluid collections. There ar e surgical changes consistent with internal fixation of the right femoral neck. There is severe lower thoracic and lumbar spondylosis with scoliosis. Small fat-containing umbilical hernia. IMPRESSION: 1. Left lower lateral abdominal wall hernia containing nonobstructed small bowel. Reviewed, dictated and finalized at location B. IMPRESSION: 1. Left lower lateral abdominal wall hernia containing nonobstructed small jessica l.
[2023-12-02 08:30] LABS: Estimated Glomerular Filt Rate > 60
== END 2023-12-02 08:05 | disposition home or self-care (01) ==
PROVIDERS: PCP Internal Medicine; Visit Provider Internal Medicine
DX: K43.9 Ventral hernia without obstruction or gangrene (principal)
CPT/HCPCS: 74177; Q9967

== ENCOUNTER 2023-12-06 14:40 | Outpatient (CLI) | payer MEDICARE, OTHER, SELFPAY ==
[2023-12-06 15:21] LABS: Hematocrit 33.6 % (37.0-47.0); Hemoglobin 10.7 g/dL (12.0-15.0); Mean Corpuscular HGB Conc 31.8 g/dl (32-36); Mean Corpuscular Hemoglobin 30.1 pg (26-34); Mean Corpuscular Volume 94.6 fl (80-100); Mean Platelet Volume 10.5 fl (7.4-10.4); Platelet Count Result 146 k/mm3 (150-375); Red Blood Count 3.55 M/mm3 (4.2-5.4); White Blood Count 4.3 K/mm3 (4.5-10.0)
[2023-12-06 15:35] LABS: Sodium 134 mmol/L (137-145)
[2023-12-06 15:36] LABS: Alanine Aminotransferase 13 U/L (6-35); Albumin Level 4.3 g/dL (3.5-5.1); Alkaline Phosphatase 75 U/L (38-126); Anion Gap 8 mmol/L (4-12); Aspartate Amino Transferase 25 U/L (14-36); Bilirubin,Total 0.7 mg/dL (0.2-1.3); Blood Urea Nitrogen 9 mg/dL (7-17); Calcium 9.2 mg/dL (8.4-10.2); Carbon Dioxide 24 mmol/L (22-30); Chloride 102 mmol/L (98-107); Estimated Glomerular Filt Rate > 60; Glucose 102 mg/dL (65-110)
[2023-12-06 16:02] LABS: Thyroid Stimulating Hormone 0.619 uIU/mL (0.465-4.680)
[2023-12-06 16:14] LABS: Vitamin D 25 Hydroxy 36.1 ng/mL
[2023-12-06 16:33] LABS: Band Neutrophils Percent 2 % (0-6); Basophils Absolute Manual 0.08 K/mm3 (0.0-0.1); Basophils Percent Manual 2 % (0-1); Lymphocytes Absolute Manual 0.51 K/mm3 (1.1-4.5); Monocytes Absolute Manual 0.73 K/mm3 (0.1-0.90); Monocytes Percent Manual 17 % (3-9); Neutrophils Absolute Manual 2.96 K/mm3 (1.7-7.2); Neutrophils Percent Manual 67 % (46-73); Platelet Estimate Slightly Decreased (Adequate); Schistocytes None Seen; Total Cells Counted 100
== END 2023-12-06 14:41 | disposition home or self-care (01) ==
PROVIDERS: PCP Internal Medicine; Visit Provider Internal Medicine
DX: I10 Essential (primary) hypertension (principal); M85.80 Other specified disorders of bone density and structure, unspecified site; E06.3 Autoimmune thyroiditis; D63.8 Anemia in other chronic diseases classified elsewhere
CPT/HCPCS: 36415; 80053; 82306; 84443; 85025

== ENCOUNTER 2023-12-23 07:51 | Outpatient (CLI) | payer MEDICARE, OTHER, SELFPAY ==
[2023-12-23 09:03] LABS: Basophils Percent Auto 0.6 % (0.2-1.2); Eosinophils Percent Auto 0.2 % (0-4.4); Hematocrit 31.9 % (37.0-47.0); Hemoglobin 9.9 g/dL (12.0-15.0); Immature Granulocyte Absolute 0.03 K/mm3 (0.00-0.031); Immature Granulocyte Percent A 0.6 % (0-0.5); Lymphocytes Absolute Auto 0.47 K/mm3 (0.9-3.2); Mean Corpuscular Hemoglobin 29.6 pg (26-34); Mean Corpuscular Volume 95.2 fl (80-100); Mean Platelet Volume 10.8 fl (7.4-10.4); Monocytes Absolute Auto 1.2 K/mm3 (0.1-0.6); Monocytes Percent Auto 22.3 % (2.6-8.5); Neutrophils Absolute Auto 3.5 K/mm3 (1.3-6.7); Neutrophils Percent Auto 67.3 % (45.5-73.1); Platelet Count Result 145 k/mm3 (150-375); Red Blood Count 3.35 M/mm3 (4.2-5.4); Red Cell Distribution Width 13.9 % (11.5-14.5); White Blood Count 5.2 K/mm3 (4.5-10.0)
[2023-12-23 09:12] LABS: Alanine Aminotransferase 11 U/L (6-35); Alkaline Phosphatase 87 U/L (38-126); Anion Gap 6 mmol/L (4-12); Aspartate Amino Transferase 20 U/L (14-36); Bilirubin,Total 0.6 mg/dL (0.2-1.3); Blood Urea Nitrogen 9 mg/dL (7-17); Calcium 9.3 mg/dL (8.4-10.2); Carbon Dioxide 27 mmol/L (22-30); Chloride 105 mmol/L (98-107); Cholesterol 135 mg/dL (0-200); Estimated Glomerular Filt Rate > 60; Glucose 91 mg/dL (65-110); HDL Direct 49 mg/dL; Potassium 4.1 mmol/L (3.4-5.0); Sodium 138 mmol/L (137-145); Triglycerides 79 mg/dL (<150)
[2023-12-23 09:23] LABS: LDL Cholesterol Direct 55 mg/dL
== END 2023-12-23 07:52 | disposition home or self-care (01) ==
LOC: ANHLAB 07:53
PROVIDERS: PCP Internal Medicine; Visit Provider Internal Medicine
DX: D72.810 Lymphocytopenia (principal); D72.821 Monocytosis (symptomatic); D64.9 Anemia, unspecified; I10 Essential (primary) hypertension
CPT/HCPCS: 36415; 80053; 80061; 85025

== ENCOUNTER 2024-02-14 08:28 | Outpatient (CLI) | payer MEDICARE, OTHER, SELFPAY ==
--- NOTE | ~2024-02-14 | CT_ITS ---
CT Scan of the Chest without Contrast: Clinical Indication: Interstitial lung disease Technique: Contiguous sections were acquired throughout the chest without intravenous contrast. Dose reduction technique was used on this scan by utilizing automated exposure control and iterative recon struction technique. The dose-length product (DLP) was 331.74 mGy-cm. COMPARISON: 03/18/2023 Findings: Mildly prominent mediastinal lymph nodes are stable from prior exam. No aortic aneurysm. Coronary art mayela calcification present. There is no evidence of pleural or pericardial effusion. Extensive interstitial thickening the lungs is similar to prior exam, with some increased background groundglass component throughout the lungs. Images through the upper abdomen reveal no abnormalities. There is extensive degenerative spondylosis in the spine. Impression: Stable extensive interstitial disease in the lungs. Mildly increased background groundglass opacity, which could reflect progressing interstitial disease versus other superimposed pathology such as bronchiolitis, asthma, or mild pulmonary edema, versus s uboptimal inspiration. Reviewed, dictated and finalized at location . 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 Mildly increased background groundglass opacity, which could reflect progressin g interstitial disease versus other superimposed pathology such as bronchioliti s, asthma, or mild pulmonary edema, versus suboptimal inspiration.
== END 2024-02-14 08:29 | disposition home or self-care (01) ==
PROVIDERS: PCP Internal Medicine; Visit Provider Internal Medicine Pulmonary Disease
DX: J84.9 Interstitial pulmonary disease, unspecified (principal)
CPT/HCPCS: 71250

== ENCOUNTER 2024-03-14 10:07 | Outpatient (CLI) | payer MEDICARE, OTHER, SELFPAY ==
--- NOTE | 2024-03-14 10:17 | ECG_ITS ---
Test Date: 2024-03-14 10:47:56 Measurements Intervals [place] Rate: 61 P: 103 TX: 193 QRS: 59 QRSD: 98 T: 43 QT: 437 QTc: 442 Interpretive Statements SINUS RHYTHM No previous ECG available for comparison Electronically Signed On 03-15-2024 16:24:30 RECREATIONAL FACILITIES MOTEL MANAGER by Beltran Carlson M.D.
[2024-03-14 13:06] LABS: Anion Gap 4 mmol/L (4-12); Blood Urea Nitrogen 9 mg/dL (7-17); Calcium 9.2 mg/dL (8.4-10.2); Carbon Dioxide 27 mmol/L (22-30); Chloride 103 mmol/L (98-107); Estimated Glomerular Filt Rate > 60; Glucose 90 mg/dL (65-110); Potassium 4.1 mmol/L (3.4-5.0); Sodium 134 mmol/L (137-145)
== END 2024-03-14 10:08 | disposition home or self-care (01) ==
LOC: ANHSURGERY 10:16
PROVIDERS: Anesthesiology; PCP Internal Medicine; Visit Provider Anesthesiology Pain Medicine
DX: I10 Essential (primary) hypertension (principal)
CPT/HCPCS: 36415; 80048; 93005

== ENCOUNTER 2024-05-21 14:14 | Outpatient (CLI) | payer MEDICARE, OTHER, SELFPAY ==
--- OUTSIDE RECORDS SUMMARY | 2024-05-21 16:52 | XMS_ITS | Continuity of Care Document ---
Author Organization [facility] Address [address] [place] [address] Phone Care Team Providers Care Staff Reporter Name Role Phone Khang Bingham MD Unavailable Unavailable Allergies, Adverse Reactions, Alerts Substance Reaction Status Criticality levofloxacin Active No Information PROPOXYPHENE NAPSYLATE Active No In formation OXYCODONE HCL Active No Information acetaminophen Active No Information clindamycin Active No Information adhesive tape Active No Information diazepam Active No Information MEPERIDINE HCL Active No Informatio n PROPOXYPHENE HCL Active No Informat ion Medications Medication Instructions Dosage Effective Dates (start - stop) Status Comments Pred Forte 1 % eye drops,suspension 1 gtt QID OD x 4 weeks - Active Polytrim 10,000 unit-1 mg/mL eye drops Instill one gtt in the OS QID x 7 days starting the day before surgery. - Active Neurontin 600 mg Tab As Directed - Act cesar LEVOTHYROXINE SODIUM 100MCGTABLET As Directed - Active Maxzide 75 mg-50 mg Tab As Directed - Active Advair Diskus 250 mcg-50 mcg/Dose for Inhalation As Directed - Active PROZAC 10MGTABLET As Directed - Active Micardis 80 mg tablet take 1 tablet by o ral route every day 80 MG - Active Claritin 10 mg tablet take 1 tablet by o ral route every day 10 MG - Active spironolactone 25 mg tablet take 1 tablet by oral route every day 25 MG - Active docusate sodium 100 mg capsule take 1 capsule by oral route every day at bedtime as needed 100 MG - Active metoprolol succinate ER 100 mg tablet,extended release 24 hr take 1 tablet by oral route every day 100 MG - Active Spiriva Respimat 1.25 mcg/actuation solution for inhalation inhale 2 puff by inhalation route every day 2.5 MCG - Active Plaquenil 200 mg tablet take 1 tablet by oral route every day 200 MG - Active prednisone 10 mg tablet take 1 tablet by oral route every day 10 MG - Active Procedures Procedure Date Post op Visit Extracapsular Cataract Removal Post op Visit Ophth Biomet Part Cohernc Intr Extracapsular Cataract Removal Ophth Biomet Part Cohernc Intr Cptr Ophth Dx Img Post Segment Ophth Serv Med Exam Comp New Determ Refractive State New Patient - Level IV Advance Directives Directive Yes / No Effective Date File Name No Information Encounters Encounter Description Practice Location Reason(s) For Visit Diagnoses Date Provider Providers Copied on Encounter [facility], [address] [place] [address], [id number], [place] tel:[phone] [facility] No Information Zachery Quiñonez. [address] [place] [address], [id number], [place]. tel:[phone] Eye [facility], [address] [place] [address], [id number], [place] tel:[phone] [facility] No Information Giuliana GAONA Sukhjinder. [address] [place] [address], [id number], [place]. tel:[phone] Eye [facility], [address] [place] [address], [id number], [place] tel:[phone] [facility] Presence of intraocular lens Giuliana GAONA Sukhjinder. [address] [place] [address], [id number], [place]. tel:[phone] Referring Provider: Sukhjinder Giordano MD W, [facility] [address] [facility], [place], [address] . tel:[phone] [facility], [address] [address], [place], [place], [id number], [place] tel:[phone] [facility] Age-related nuclear cataract, right eye Giuliana GAONA Sukhjinder. [address] [place] [address], [facility] [address], [place], [place], [id number], [place]. tel:[phone] Referring Provider: Khang Saucedo, [address] [place] [address], [id number]. tel:[phone] [facility], [address] [place] [address], [id number], [place] tel:[phone] [facility] Presence of intraocular lensAge-relat ed nuclear cataract, right eye Giuliana GAONA Sukhjinder. [address] [place] [address], [address] [address], [place], [place], [id number], [place]. tel:[phone] Referring Provider: Sukhjinder Beatty, [address] [place] [address] Suite [facility], [place], [address] . tel:[phone] Eye [facility], [address] [place] [address], [place], [place], [id number], [place] tel:[phone] [facility] Age-related nuclear cataract, left eye Giuliana GAONA Sukhjinder. [address] [place] [address], [facility] [address], [place], [place], [id number], [place]. tel:[phone] Referring Provider: Khang Saucedo, [address] [place], [address]. tel:[phone] Eye [facility], [address] [place] [address], [place], [place], [id number], [place] tel:[phone] [facility] Age-related nuclear cataract, right eye Giuliana GAONA Sukhjinder. [address] [place] [address], [address], [id number], [place]. tel:[phone] Referring Provider: Sukhjinder Giordano MD W, [address] [place] [address], [place], [address] . tel:[phone] [facility], [address] [place] [address], [id number], [place] tel:[phone] [facility] Age-related nuclear cataract, right eyeAge-relate d nuclear cataract, left eyeNexdtve age-related mclr degn, bilateral, intermed dry stage Giuliana GAONA Sukhjinder. [address] [place] [address], [address], [id number], [place]. tel:[phone] Referring Provider: Sukhjinder Giordano MD W, [address] [place] [address], [place], [address] . tel:[phone] New Patient - Level IV [facility], [address] [place] [address], [id number], [place] tel:[phone] [facility] 1 No Information Leslee Cortez. [address] [place] [address], [id number], . tel:[phone] Referring Provider: Diego Mcmahon, [address] [place] [address], [id number] . tel:[phone] Family History Family Member Type Diagnosis Age At Onset Father Problem (finding) glaucoma Payers Payer name Insurance type Covered republican ID Authoriza tion(s) No Information Social History Type Description Quantity Date Captured Comments Sex Female Smoking Status No Information Chief Complaint And Reason For Visit No Information Reason For Referral Reason For Referral No Information Plan Of Treatment Date Type Action Status Future Order: Radiology Order [facility] ([facility]) , Sent on: Sent History Of Present Illness Encounter Date Complaint History Of Prese nt Illness No Information Functional Status Date Functional Assessmen t No Information Instructions Date Instruction Additional Infor laura Education Material Provided Education Material Provided Education Material Provided Education Material Provided Education Material Provided Education Material Provided Father has Glaucoma. 366.16 Nuclear Sclerosis OU 370.33 K-Sicca OS>OD Assessments Type Assessment Date No Information Patient Care Teams Name Effective Dates (start - stop) Status Members No Information
--- OUTSIDE RECORDS SUMMARY | 2024-05-21 16:52 | XMS_ITS | Continuity of Care Document ---
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 [address] [place], [address], [place]. tel:[phone] [facility], [address], [id number], tel:[phone] [facility] No Information Nurse Suleman Gao. [address] [place], [address], [place]. tel:[phone] Family History Family Member Type Diagnosis Age At Onset No Information Immunizations Vaccine Date Status Comments Moderna COVID-19 Vaccine (PF) 100 mcg/0.5 mL IM susp (Unapproved) administered Source: New Immuniza tion Record Moderna COVID-19 Vaccine (PF) 100 mcg/0.5 mL IM susp (Unapproved) administered Source: New Immuniza tion Record Payers Payer name Insurance type Covered green party ID Authoriza tion(s) [employer] Medicare Polly URBAN [id number] Full Fee CI [id number] [facility] CI [id number] Social History Type Description Quantity Date Captured Comments Sex Female Smoking Status No Information Chief Complaint And Reason For Visit No Information Reason For Referral Reason For Referral No Information History Of Present Illness Encounter Date Complaint History Of Prese nt Illness No Information Functional Status Date Functional Assessmen t No Information Instructions Date Instruction Additional Infor mation No Information Assessments Type Assessment Date No Information Patient Care Teams Name Effective Dates (start - stop) Status Members No Information
--- OUTSIDE RECORDS SUMMARY | 2024-05-21 16:52 | XMS_ITS | Referral Summary ---
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 Name Role Phone Rachell Zuniga MD Primary Care Provider [phone]- [phone] Allergies Active Allergy Reactions Criticality Noted Date Comments Adhesive Tape-Silicones Hives Medium 09/09/2021 Allergen Ext-Rabbit Epithelium Unknown 09/09/2021 Clindamycin Chills Low 09/09/2021 Diazepam Mental status changes Low 09/09/2021 Levofloxacin Hives Medium 09/09/2021 itchy, lips/tongue Meperidine Hallucinations Medium 09/09/2021 Pollen Extracts Unknown 09/09/2021 Propoxyphene Nausea & Vomiting Low 09/09/2021 Silicone Unknown 09/09/2021 Medications Capo Ellipta 200-62.5-25 mcg inhaler Inhale 1 puff daily 2 Active levothyroxine (SYNTHROID) 150 mcg tablet Take 1 tablet (150 mcg total) by mouth daily [address] (PROTONIX) 40 mg EC tablet Take 1 tablet (40 mg total) by mouth 2 (two) times a day 2 Active FLUoxetine (PROzac) 20 mg capsule Take 1 capsule (20 mg total) by mouth 3 (three) times a day 2 Active gabapentin (NEURONTIN) 300 mg capsule Take 1 capsule (300 mg total) by mouth 3 (three) times a day 2 Active docusate sodium (COLACE) 100 mg capsule Take 1 capsule (100 mg total) by mouth 2 (two) times a day 2 Active nebivoloL (BYSTOLIC) 5 mg tablet Take 2 tablets (10 mg total) by mouth daily 2 Active amLODIPine (NORVASC) 10 mg tablet Take 1 tablet (10 mg total) by mouth daily 2 Active donepeziL (ARICEPT) 5 mg tablet Take 1 tablet (5 mg total) by mouth nightly 2 Active lidocaine (LIDODERM) 5 % APPLY 1 NEW PATCH TO LOW BACK FOR 12 HOURS PER DAY AND LEAVE OFF FOR 12 HOURS 2 Active acetaminophen (TYLENOL) 500 mg tablet Take 1 tablet (500 mg total) by mouth as needed 2 Active cholecalciferol (VITAMIN D-3) 2000 unit capsule Take 1 capsule (2,000 Units total) by mouth daily 2 Active diclofenac sodium (VOLTAREN) 1 % gel Apply 1 g topically as needed 1 Active albuterol HFA (PROVENTIL HFA,VENTOLIN HFA,PROAIR HFA) 90 mcg/actuation inhaler as needed 2 Active albuterol 2.5 mg /3 mL (0.083 %) nebulizer solution 1 Active pravastatin (PRAVACHOL) 40 mg tablet Take 1 tablet (40 mg total) by mouth daily 2 Active bacitracin 500 unit/gram ointment Apply 1 application topically 2 (two) times a day as needed for wound care Active loratadine (CLARITIN) 10 mg tablet Take 1 tablet (10 mg total) by mouth daily as needed for allergies Active multivit-min/fe rrous fumarate (MULTI VITAMIN ORAL) Take 1 tablet by mouth daily Active guaiFENesin ER (MUCINEX) 600 mg 12 hr tablet Take 2 tablets (1,200 mg total) by mouth as needed for cough Active traMADoL (ULTRAM) 50 mg tablet Take 1 tablet (50 mg total) by mouth every 6 (six) hours as needed for pain 3 Active aspirin 81 mg enteric coated tablet Take 1 tablet (81 mg total) by mouth daily Active montelukast (SINGULAIR) 10 mg tablet Take 1 tablet (10 mg total) by mouth nightly 3 Active leflunomide (ARAVA) 20 mg tablet Take 1 tablet (20 mg total) by mouth daily 4 Active spironolactone (ALDACTONE) 25 mg tablet Take 1 tablet (25 mg total) by mouth daily 90 tablet 3 4 Active telmisartan (MICARDIS) 40 mg tablet TAKE 1 TABLET TWICE A DAY 180 tablet 3 4 Active Active Problems Problem Noted Date Diagnosed Date Labile hypertension 09/25/2021 Chronic congestive heart failure 09/25/2021 Social History Tobacco Use Types Packs/Day Years Used Date Smoking Tobacco: Former Smokeless Tobacco: Never Personal Safety Answer Date Recorded Getting School Help Needed Not on file 05/07 Comments Unknown Sex and Gender Information Value Date Recorded Sex Assigned at Not on file Legal Sex Female 10:30 AM CDT Gender Identity Female 12/03/2022 12:05 PM CDT Sexual Orientation Bisexual 12/03/2022 12 :05 PM CDT Last Filed Vital Signs Vital Sign Reading Time Taken Comments Blood Pressure 148/80 12/07/2023 12:13 PM CDT Pulse 61 12/07/2023 12:13 PM CDT Temperature - - Respiratory Rate - - Oxygen Saturation 92% 12/07/2023 12:13 PM CDT 2L O2 Inhaled Oxygen Concentration - - Weight 98.9 kg (218 lb) 12/07/2023 12:13 PM CDT Height 162.6 cm (5' 4 ) 12/07/2023 12:13 PM CDT Body Mass Index 37.42 12/07/2023 12:13 PM CDT Plan of Treatment Not on file Insurance MEDICARE FOR LIFE Care Teams Mine Development Engineer Relationship Specialty Start Date End Date Rachell Zuniga MD [employer] [place] [id number] PCP - General Internal Medicine 06/22/21
--- OUTSIDE RECORDS SUMMARY | 2024-05-21 16:52 | XMS_ITS | Clinical Summary ---
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 Role Phone Rachell Zuniga MD Primary Care Provider [phone]- [phone] Allergies Active Allergy Reactions Criticality Noted Date [...] hypertension 09/25/2021 Chronic congestive heart failure 09/25/2021 Family History Medical History Relation Name Comments Hypertension Father Cancer Mother Relation Name Status Comments Father Mother Social History Tobacco Use Types Packs/Day Years [...] Orientation Bisexual 12/03/2022 12 :05 PM CDT Obstetrics History Last Filed Vital Signs Vital Sign Reading [...] 12/07/2023 12:13 PM CDT Plan of Treatment Health Maintenance Due Date Last Done Comments Depression Screening 1945 Fall Risk Assessment 1945 Osteoporosis Screening-Bone Density Scan 1945 DTaP/Tdap/Td Vaccine (1 - Tdap) 09/19/1954 Hepatitis B Screening 09/19/1961 Zoster Vaccine (1 of 2) 09/19/1993 Well Visit 65+ 09/19/2008 Pneumococcal vaccine 65+ (2 of 2 - PCV) 06/20/2013 0 06/20/2012 Covid-19 Vaccine (2 - 2023- season) 11/06/202308/2021 Influenza Vaccine Completed 12/13/2023, 12/10/2021 Insurance MEDICARE Ticket [employer] Care Teams Joinery Factory Worker Relationship Specialty Start Date End Date Rachell Zuniga MD [employer] [place] [id number] PCP - General Internal Medicine 06/22/21
[2024-05-21 21:09] LABS: Basophils Percent Auto 0.7 % (0.2-1.2); Eosinophils Absolute Auto 0.1 K/mm3 (0-0.3); Eosinophils Percent Auto 0.9 % (0-4.4); Hematocrit 31.6 % (37.0-47.0); Hemoglobin 10.1 g/dL (12.0-15.0); Immature Granulocyte Absolute 0.03 K/mm3 (0.00-0.031); Immature Granulocyte Percent A 0.5 % (0-0.5); Lymphocytes Absolute Auto 0.74 K/mm3 (0.9-3.2); Lymphocytes Percent Auto 12.9 % (18.3-44.2); Mean Corpuscular Volume 96.9 fl (80-100); Mean Platelet Volume 12.1 fl (7.4-10.4); Monocytes Absolute Auto 0.9 K/mm3 (0.1-0.6); Monocytes Percent Auto 16.4 % (2.6-8.5); Neutrophils Absolute Auto 3.9 K/mm3 (1.3-6.7); Neutrophils Percent Auto 68.6 % (45.5-73.1); Platelet Count Result 146 k/mm3 (150-375); Red Blood Count 3.26 M/mm3 (4.2-5.4); Red Cell Distribution Width 14.6 % (11.5-14.5); White Blood Count 5.7 K/mm3 (4.5-10.0)
== END 2024-05-21 14:15 | disposition home or self-care (01) ==
LOC: ANHGOSHLAB 14:17
PROVIDERS: PCP Internal Medicine; Visit Provider Internal Medicine
DX: D72.821 Monocytosis (symptomatic) (principal); D63.8 Anemia in other chronic diseases classified elsewhere; D72.810 Lymphocytopenia
CPT/HCPCS: 36415; 82728; 85025

== ENCOUNTER 2024-10-12 11:03 | Emergency (ER) | payer MEDICARE, OTHER, SELFPAY ==
--- NOTE | 2024-10-12 11:06 | ED_ITS ---
HPI - Female Genitourinary General Chief complaint: Altered Mental Status Stated complaint: Uti Symptoms Time Seen by Provider: 10/12/24 11:25 Source: patient Mode of arrival: ambulatory Limitations: no limitations History of Present Illness HPI Narrative: Marialuisa is an 79-year-old female patient presenting to the clinic today with complaints of possible UTI/altered mental status. reports patient started having altered mental status starting one week ago but symptoms improved over the week however, yesterday her symptoms gotten worse. He contacted her PCP and they told her to come into the clinic to be evaluated. Patient is having self harming behavior- has scratched/abraded the left volar wrist where she has been scratching her wrist. Has band aid on her left wrist. States, I am mad because my has not had sex with me in the last 3 years. I can not reach to masturbate. I want to be sent to the [facility]. He has not had sex with me in 3 years and I want a divorce. I want a douche so something will be in my vagina. She denies any fever, chills, chest pain, SOB, abdomen pain, or UTI symptoms. Wears home o2 at 2 liters and had a pain pump that Dr. Craig manages. History of chronic pain, COPD, depression, anxiety, CHF, respiratory failure, and anemia. Related Data Home Medications ?Medication ?Instructions ?Recorded ?Confirmed ?Last Taken ?Type docusate sodium 100 mg capsule 100 mg PO BID 11/18/21 09/10/24 Unknown History diclofenac sodium 1 % topical gel 4 g topical QID PRN Pain 05/13/22 09/10/24 03/07/24 History (Arthritis Pain (diclofenac)) telmisartan 40 mg tablet 40 mg PO BID 05/13/22 09/10/24 03/19/24 History spironolactone 25 mg tablet 25 mg PO DAILY 06/15/22 09/10/24 03/19/24 History albuterol sulfate 2.5 mg/3 mL 2.5 mg inhalation Q6-8H 12/28/22 09/10/24 03/20/24 History (0.083 %) solution for nebulization aspirin 81 mg capsule 81 mg PO DAILY 03/08/24 09/10/24 03/07/24 History cholecalciferol (vitamin D3) 50 2,000 unit PO DAILY 03/08/24 09/10/24 03/16/24 History mcg (2,000 unit) capsule omega 3 350 mg-dha 235 mg-epa 90 cap PO DAILY 03/08/24 09/10/24 03/07/24 History mg-fish oil 597 mg capsule,delay rel (Leeds-3) vibegron 75 mg tablet (Gemtesa) 75 mg PO DAILY 03/08/24 09/10/24 03/19/24 History vitamins A,C,I-rand-hwmfti 2,148 2 tablet PO DAILY 03/08/24 09/10/24 03/16/24 History mcg-113 mg-45 mg-17.4 mg tablet (PreserVision AREDS) CPAP miscellaneous 05/21/24 09/10/24 Unknown History Pain Pump .Route 05/21/24 09/10/24 Unknown History bacitracin 500 unit/gram topical 1 applic topical BID 05/21/24 09/10/24 Unknown History ointment furosemide 20 mg tablet (Lasix) 20 mg PO QPM PRN 05/21/24 09/10/24 Unknown History guaifenesin 600 mg tablet, 600 mg PO Q12H PRN 05/21/24 09/10/24 Unknown History extended release 12 hr (Mucinex) loratadine 10 mg tablet (Claritin) 10 mg PO DAILY PRN 05/21/24 09/10/24 Unknown History oxygen Infiltration 05/21/24 09/10/24 Unknown History potassium chloride 10 mEq 10 meq PO DAILY PRN 05/21/24 09/10/24 Unknown History tablet,extended release (Klor-Con) Allergies Allergy/AdvReac Type Severity Reaction Status Date / Time clindamycin Allergy Severe Chills Verified 10/12/24 11:17 diazepam Allergy Severe suicidal Verified 10/12/24 11:17 ideation levofloxacin (From Levaquin) Allergy Intermediate Itching Verified 10/12/24 11:17 cat dander Allergy Unknown Sinusitis Verified 10/12/24 11:17 dog dander Allergy Unknown Sinusitis Verified 10/12/24 11:17 feathers Allergy Unknown Sinusitis Verified 10/12/24 11:17 grass pollen Allergy Unknown Sinusitis Verified 10/12/24 11:17 house dust Allergy Unknown Sinusitis Verified 10/12/24 11:17 Rabbit Allergy Unknown Sinusitis Verified 10/12/24 11:17 tree and shrub pollen Allergy Unknown Sinusitis Verified 10/12/24 11:17 adhesive tape Allergy Redness of Verified 10/12/24 11:17 Skin silicone Allergy Unknown Verified 10/12/24 11:17 meperidine (From Demerol) AdvReac Hallucinati Verified 10/12/24 11:17 ng oxycodone (From Percocet) AdvReac Nausea Verified 10/12/24 11:17 propoxyphene AdvReac Nausea and Verified 10/12/24 11:17 Vomiting Review of Systems Review of Systems: Pertinent positives per HPI. Patient denies any fever, chills, rash, headache, visual changes, dizziness, cough, runny nose, sore throat, shortness of breath, chest pain, palpitations, nausea, vomiting, diarrhea, constipation, abdominal pain, or any urinary issues. [facility] Past Medical History Medical History Femur fracture, right Surgical screws Fracture, foot Right Metatarsal Anemia Undifferentiated connective tissue disease Depression with anxiety COPD (chronic obstructive pulmonary disease) NBA on CPAP Dementia History of ARDS Diastolic dysfunction History of nuclear stress test History of abnormal electrocardiogram Genevieve's thyroiditis Rosacea w/ ocular involvement Depression History of rectocele History of migraine headaches Spondylosis of cervical spine Arthralgia H/O antinuclear antibodies intermittent +ABRAM to 1:320 Vascular disorder seronegative collagen disorder History of squamous cell carcinoma History of staph infection Chronic left shoulder pain arthritis; possibly inflammatory Fracture, rib Aftercare following finger joint replacement surgery Thyroiditis Scoliosis History of left heart catheterization Tubal ligation evaluation Enlarged ureter Supplemental oxygen dependent Hypertension Fibromyalgia CHF (congestive heart failure) Surgical History Surgical History History of cataract extraction with lens replacement History of arthroplasty of knee Left History of removal of pigmented skin lesion Nose 2021 History of hysterectomy Total History of ERCP History of fusion of lumbar spine L2-L5 lumbar fusion Titanium History of laminectomy History of total knee replacement History of cholecystectomy 2002 History of tubal ligation History of D&C History of hip surgery right Total knee replacement status Previous back surgery S/P peroneal tendon repair History of surgical removal of ganglion cyst 1960 H/O hernia repair 1948 Family History Family History Unknown No problems noted. Mother Esophageal cancer Other Alcohol abuse Cancer Hypertension Social History Social History Social History: She lives with her and has 3 biologic children. She also has 1 adopted child. 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 She is a former smoker. Code status full code Smoking packs per day: 1.5 Smoking cigarettes per day: 30.0 Years smoked: 15 Smoking pack-years: 22.50 Smoking status: Former smoker Tobacco type: cigarettes Smoking end date: 11/23/81 Additional smoking assessment comments: quit 1981 Alcohol intake: current Alcohol use details: 0-1 per week Substance use: never Substance use type: does not use Do You Feel Safe in your Home?: Yes Lack of Transportation: No Lack of Food: Never True Current Housing: I Have Housing Concerned About Future Housing: No Difficulty Paying Gas/Electric Bills: No Difficulty Paying for Meds: No Currently Unemployed: No Education: Associate Degree Difficulty w/ Childcare or Family Care: No Living arrangements: with family Additional living arrangements comments: [facility]. Occupation/Education: retired Gender identity (if verbalized by the patient): Female Spiritual care concerns: No Agree to blood products: Yes Comments At the time of my signature, I reviewed and agree with the nursing past medical, surgical, social, and family history. There is no relevant family history pertinent to the patient complaint. Exam Narrative: General: Well-developed, morbidly obese, chronic ill-appearing, in no apparent distress. Wearing home O2 at 2 L Head: Normocephalic, atraumatic. Cardio: Regular rate and rhythm, s1 and s2 normal, no murmur appreciated. Resp: Diminished in the bases with faint rhonchi, no rales, wheezing or rubs. Abdomen: Soft, pliable, bowel sounds present in all quadrants, non-tender to palpation, no organomegly, no CVAT tenderness. Musculoskeletal: No deformity, non-tender to palpation, grossly normal range of motion, muscle strength strong and equal, peripheral pulse strong, no edema, no cyanosis, sitting and wheeled wheelchair- normal gait and station when walking to the ambulance stretcher Neuro: Alert and oriented x3 with normal speech, no focal deficits, cranial nerves I through XII intact, muscle strength 5 out of 5, sensation intact bilaterally Extremities: No deformity, no edema, no cyanosis, capillary refill less than 2 seconds, peripheral pulses palpable and strong. Integumentary: Salvo, warm, and dry, intact without lesion,approx 3.5 cm abrasion to the left volar wrist Psych: Agitated mood and affect, cooperative with staff, impaired judgment and insight Course Course Emergency Course: Portions of this record may have been created with voice recognition software. Level of Care: Express Care Visit Vital Signs Vital signs: Vital Signs Temperature 36.8 C 10/12/24 11:22 Pulse Rate 65 10/12/24 11:22 Respiratory Rate 16 10/12/24 11:22 Blood Pressure 164/73 H 10/12/24 11:22 Pulse Oximetry 99 10/12/24 11:22 Temperature 36.8 C 10/12/24 11:22 Pulse Rate 65 10/12/24 11:22 Respiratory Rate 16 10/12/24 11:22 Blood Pressure 164/73 H 10/12/24 11:22 Pulse Oximetry 99 10/12/24 11:22 Vital signs reviewed Transfer Transfered to: [facility] Transportation: ALS Transfer rationale: UTI, self-harming behavior, altered mental status Accepting physician: Dr. Potts Transfer comments: Transfer via ALS MDM - Female Genitourinary MDM Narrative Medical decision making narrative: At the time of visit patient is resting comfortably on the exam table. Patient appears to be nontoxic. Complaints of possible UTI/altered mental status. reports patient started having altered mental status starting one week ago but symptoms improved over the week however, yesterday her symptoms gotten worse. He contacted her PCP and they told her to come into the clinic to be evaluated. Patient is having self harming behavior- has scratched/abraded the left volar wrist where she has been scratching her wrist. Has band aid on her left wrist. States, I am mad because my has not had sex with me in the last 3 years. I can not reach to masturbate. I want to be sent to the [facility]. He has not had sex with me in 3 years and I want a divorce. I want a douche so something will be in my vagina. She denies any fever, chills, chest pain, SOB, abdomen pain, or UTI symptoms. Wears home o2 at 2 liters and had a pain pump that Dr. Craig manages. History of chronic pain, COPD, depression, anxiety, CHF, and anemia. UA dip ordered. Vital signs stable- oxygenation is 99% on the 2 L of oxygen Labs: Urinalysis positive for leukocytes, nitrates, blood, and protein. Plan: Recommend transfer to the ER for acute altered mental status/self-harming behavior/UTI. Patient agrees to transfer to the emergency room. Patient would like to be transfer to [facility] emergency room. Contacted Dr. Potts at [facility] ER and report was given for continuity of care and he accepts patient for transfer. Patient to be transferred via ALS. Differential Diagnosis Differential diagnosis: Likely urinary tract infection, cystitis and other (AMS, urosepsis, CVA, TIA, psychosis, hypoglycemia, self-harming behavior, suicidal ideation/homicidal ideation) Lab Data Labs: Lab Results 10/12/24 Range/Units 11:19 POC Urine Color Yellow POC Urine Clarity Clear POC Urine pH 6.0 POC Ur Specif Marshall 1.015 POC Urine Protein 1+ (Negative) POC Ur Glucose (UA) Negative (Negative) POC Urine Ketones Negative (Negative) POC Urine Blood Trace (Negative) POC Urine Nitrite Positive (Negative) POC Urine Bilirubin Negative (Negative) POC Urine Urobilinogen 0.2 POC U Leukocyte Esteras 1+ (Negative) Discharge Plan Discharge Clinical Impression: Self-harming behavior UTI (urinary tract infection) Qualifiers: Urinary tract infection type: acute cystitis Hematuria presence: with hematuria Qualified Code(s): N30.01 - Acute cystitis with hematuria Altered mental status Qualifiers: Altered mental status type: unspecified Qualified Code(s): R41.82 - Altered mental status, unspecified Patient Disposition: Acute Care Hospital Condition: Stable Patient Language: Irish Prescriptions: No Action docusate sodium 100 mg capsule 100 mg PO BID telmisartan 40 mg tablet 40 mg PO BID diclofenac sodium [Arthritis Pain (diclofenac)] 1 % gel 4 g topical QID PRN (Reason: Pain) Rx Instructions: apply to single knee, ankle, foot; for foot includes sole/toes/top of foot spironolactone 25 mg tablet 25 mg PO DAILY albuterol sulfate 2.5 mg /3 mL (0.083 %) solution for nebulization 2.5 mg inhalation Q6-8H lidocaine HCl 10 mg/mL (1 %) solution 0.01 ml Infiltration ONCE Qty: 2 0RF lidocaine HCl 10 mg/mL (1 %) solution 0.5 ml subcut ONCE PRN (Reason: not used) Qty: 2 0RF naloxone 4 mg/actuation spray,non-aerosol 4 mg intranasal Q2-3M PRN (Reason: opioid overdose) Qty: 2 1RF Rx Instructions: spray 1 dose into ONE nostril; repeat every 2-3 minutes until responsive, alternating nostrils w each dose until help arrives albuterol sulfate 90 mcg/actuation HFA aerosol inhaler 1 - 2 puff inhalation Q4-6H PRN (Reason: shortness of breath or wheezing) Qty: 25.5 3RF oxygen Infiltration CPAP miscellaneous Pain Pump .Route Patient Comments: prescribed by pain management Rx Instructions: Primary: Hydromorphone 125.0mcg/mL Secondary: Clonidine 200.0mcg/mL,Bupivacaine 5,000mcg/mL potassium chloride [Klor-Con 10] 10 mEq tablet extended release 10 meq PO DAILY PRN Patient Comments: take only when taking Lasix furosemide [Lasix] 20 mg tablet 20 mg PO QPM PRN loratadine [Claritin] 10 mg tablet 10 mg PO DAILY PRN guaifenesin [Mucinex] 600 mg tablet extended release 12hr 600 mg PO Q12H PRN bacitracin 500 unit/gram ointment 1 applic topical BID aspirin 81 mg capsule 81 mg PO DAILY Gemtesa 75 mg tablet 75 mg PO DAILY cholecalciferol (vitamin D3) 50 mcg (2,000 unit) capsule 2,000 unit PO DAILY PreserVision AREDS 2,148 mcg-113 mg-45 mg-17.4mg tablet 2 tablet PO DAILY Rx Instructions: administer with a meal Leeds-3 350 mg-235 mg- 90 mg-597 mg capsule,delayed release(DR/EC) PO DAILY Trelegy Ellipta 200-62.5-25 mcg blister with device 1 inh inhalation DAILY Qty: 180 3RF Rx Instructions: Rinse mouth and spit after each use lidocaine 5 % adhesive patch,medicated See Rx Instructions .ROUTE .COMPLEX Qty: 90 3RF Dose Instruction: APPLY 1 PATCH TO LOW BACK FOR 12 HOURS PER DAY Rx Instructions: APPLY 1 PATCH TO LOW BACK FOR 12 HOURS PER DAY amlodipine 10 mg tablet 10 mg PO DAILY Qty: 90 1RF donepezil 5 mg tablet 5 mg PO QHS Qty: 90 1RF fluoxetine 20 mg capsule 20 mg PO TID Qty: 270 1RF gabapentin 300 mg capsule 300 mg PO TID Qty: 270 1RF montelukast 10 mg tablet 10 mg PO DAILY Qty: 90 1RF pantoprazole 40 mg tablet,delayed release (DR/EC) 40 mg PO BID Qty: 180 1RF pravastatin 40 mg tablet 40 mg PO DAILY Qty: 90 1RF levothyroxine [Synthroid] 150 mcg tablet 150 mcg PO DAILY Qty: 90 1RF nebivolol [Bystolic] 10 mg tablet 10 mg PO DAILY Qty: 90 1RF folic acid 1 mg tablet 1 mg PO DAILY Qty: 90 1RF Follow-up/Referrals: Kristofer Key DO [Primary Care Provider] - Time of Disposition: 11:35 Quality NIHSS Nursing Documentation ED NIHSS nursing documentation: reviewed/agree
[2024-10-12 11:21] LABS: EDUAAPPEAR Clear; EDUABILI Negative (Negative); EDUABLOOD Trace (Negative); EDUACOLOR1 Yellow; EDUAGLUCOSE Negative (Negative); EDUAKETONE Negative (Negative); EDUALEUKO 1+ (Negative); EDUANITRATE Positive (Negative); EDUAPH 6.0; EDUAPROTEIN 1+ (Negative); EDUASPGRAVITY 1.015; EDUAUROBILI 0.2
[2024-10-12 11:22] VITALS: BP 164/73; PULSE 65; RESP 16; TEMP 36.8; O2SAT 99
== END 2024-10-12 11:38 | disposition short-term general hospital (02) ==
LOC: EXPGOSH 11:04
PROVIDERS: Emergency Provider Nurse Practitioner Family; PCP Internal Medicine
DX: R45.88 Nonsuicidal self-harm (principal); N30.01 Acute cystitis with hematuria; R41.82 Altered mental status, unspecified; Z99.81 Dependence on supplemental oxygen; I11.0 Hypertensive heart disease with heart failure; I50.9 Heart failure, unspecified; J44.9 Chronic obstructive pulmonary disease, unspecified; D64.9 Anemia, unspecified; G47.33 Obstructive sleep apnea (adult) (pediatric); F03.90 Unspecified dementia, unspecified severity, without behavioral disturbance, psychotic disturbance, mood disturbance, and anxiety; E06.3 Autoimmune thyroiditis; M79.7 Fibromyalgia; F41.8 Other specified anxiety disorders; Z85.828 Personal history of other malignant neoplasm of skin; Z87.891 Personal history of nicotine dependence; Z96.652 Presence of left artificial knee joint; Z79.82 Long term (current) use of aspirin
CPT/HCPCS: 81003; 99215; G0463

== ENCOUNTER 2024-10-12 12:11 | Emergency (ER) | payer MEDICARE, OTHER, SELFPAY ==
--- NOTE | ~2024-10-12 | XR_ITS ---
XR chest 1V portable 10/12/2024 14:34 Indication: Cough and congestion Procedure: AP portable chest Comparison: 07/22/2022 Findings: Borderline heart size. Stable chronic interstitial infiltrates. No acute focal pneumonia, p leural effusion or pneumothorax. There is scoliosis. There are degenerative changes of the glenohumer al joints. Impression: 1: Stable chronic interstitial lung disease. Reviewed, dictated and finalized at location A. Impression: 1: Stable chronic interstitial lung disease.
--- NOTE | ~2024-10-12 | CT_ITS ---
EXAMINATION: CT brain wo con DATE: 10/12/2024 12:47 INDICATION: Altered mental status TECHNIQUE: Computed tomography (CT) of the head was performed without intravenous contrast. Sagittal and coronal reconstructions were performed. The mA was adjusted according to patient size. Iterative reconstruction technique was employed. The dose-length product was 605.33 mGy-cm. COMPARISON: None FINDINGS: No acute intracranial hemorrhage, acute infarction or abnormal extra axial fluid collection. There is mild scattered white matter hypoattenuation consistent with chronic small vessel ischemic disease. S ymmetric prominence of the sulci and subarachnoid spaces overlying the bilateral frontal lobes consis tent with mild to moderate age-appropriate diffuse cerebral volume loss.Ventricles are normal and sym metric. There is osseous excrescence along the anterior right frontal lobe which appears contiguous t o the inner table of the skull and would favor focal hyperostosis frontalis over a calcified meningio ma. No other mass/mass effect. The orbits, paranasal sinuses and mastoid air cells are normal. IMPRESSION: 1. Normal aging brain with mild to moderate diffuse volume loss and mild scattered white matter hypoa ttenuation consistent with chronic small vessel ischemic disease. No acute intracranial process. Reviewed, dictated and finalized at location A. IMPRESSION: 1. Normal aging brain with mild to moderate diffuse volume loss and mild scatte red white matter hypoattenuation consistent with chronic small vessel ischemic disease. No acute intracranial process.
[2024-10-12 12:14] VITALS: BP 161/78; PULSE 63; RESP 16; TEMP 36.8; O2SAT 99
--- OUTSIDE RECORDS SUMMARY | 2024-10-12 12:27 | XMS_ITS | Patient Health Record ---
Author Organization [facility] Address [address] [place] [address] Care Team Providers Care Makeup Sales Consultant Name Role Phone AFA, Internal Medicine [employer] Primary Care Provide r Unavailable Kristofer Frost DO Unavailable [phone] Allergies Allergen (clinical drug ingredient) Drug/Non Drug Allergy documented on EMR Reaction Allergy Type Onset Date Status rabbitts,cats,dogs,g r ass (uncoded) Unknown Allergy Active clindamycin Clindamycin HCl Unknown Drug Allergy Active Darvocet-N 100 Unknown Drug Allergy Ac tive Darvon Unknown Drug Allergy Active meperidine Demerol Unknown Drug Allergy Active Levaquin Unknown Drug Allergy Active acetaminophen / oxycodone Percocet Unknown Drug Allergy Active diazepam Valium Unknown Drug Allergy Active Reason For Referral No Information Medications Medication SIG (Take, Route, Frequency, Duration) Notes Start Date End Date Status Spironolactone 25 MG 1 tablet Orally; Duration: 30 day(s) Active Montelukast Sodium 10 MG 1 tablet Orally Once a day; Duration: 30 day(s) Active Olopatadine HCl 0.7 % 1 drop into affect ed eye Ophthalmic Once a day Active Oxygen-Helium Active Benzonatate 100 MG 1 capsule as needed Orally Three times a day Active Metoprolol Tartrate 25-37.5mg Tab As Directed ([facility] 07/17/2003 Active Trelegy Ellipta 100-62.5-25 MCG/INH 1 puff Inhalation Once a day Active PROzac 20 MG 3 capsules Orally On ce a day ([facility]) 07/16/2003 Active amLODIPine Besylate 2.5 MG 1 tablet Oral ly Once a day; Duration: 30 day(s) Active Neurontin 600 MG 1 tablet Orally tid ([facility]) 07/16/2003 Active Synthroid 175 MCG Orally 1 TABLET DAILY ([facility]) 07/16/2003 Active Pantoprazole Sodium 40 MG 1 tablet Orall y Once a day; Duration: 30 day(s) Active Telmisartan 80 MG 1 tablet Orally Once a day; Duration: 30 day(s) Active Plaquenil 200 MG 1 tablet with food o r milk Orally Once a day 03/24/2017 Active Mucinex 600 MG 1 tablet as needed Orally every 12 hrs Active Voltaren 1 % Transdermal PRN A ctive Claritin 10 MG 1 tablet Orally Once a day; Duration: 30 day(s) Active Colace 100 MG 1 capsule as needed Orally two times a day Active Social History Tobacco Use: Social History Observation Description Date Details (start date - stop date) Former Smoker NA - NA Tobacco Use/Smoking Question Answer Notes Are you a former smoker How long has it been since you last smoked? > 10 years Alcohol Screen Question Answer Notes Did you have a drink contain ing alcohol in the past year? Yes How often did you have a dri nk containing alcohol in the past year? 2 to 3 times a week (3 points) How many drinks did you have on a typical day when you were drinking in the past year? 1 or 2 drinks (0 point) How often did you have 6 or more drinks on one occasion in the past year? 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 Plan Of Treatment Pending Test Test Name Order Date Aspiration and Injections Small Joint or Bursa 08/18/2018 Insurance Providers Payer Name Payer Address Payer Phone Subscriber Number Group Number Insured Name Patient Relationship to Insured Coverage Start Date Coverage End Date MEDICARE [address] [place] [phone] [id number] Marialuisa Darden Self - patient is the insured [facility] FOR LIFE [address] [place] [address] [phone] [id number] Khang Darden Spouse - patient is the spouse of the insured Medical (General) History Medical History History ICD Code 07/17/2003: -> fibromyalgia ; 07/17/2003: -> chronic back pain ; 07/17/2003: -> hypertension ; 07/17/2003: -> rosacea ; 07/17/2003: -> Genevieve's t hyroiditis; cholelithiasis-s/p surgery; metatarsal fractures ; DJD/osteoarthritis GERD Depression vitamin D deficiency knee replacement 2006 osteomyelitis - left thumb (dog bite, 20 08) low back surgery-spine fusion Surgical History Surgery Date(Month/Year) cholecystectomy ; 07/17/2003 tubal ligation ; 07/17/2003 Lumbar laminectomy- 2001 ; 07/17/2003
--- OUTSIDE RECORDS SUMMARY | 2024-10-12 12:27 | XMS_ITS | Continuity of Care Document ---
Author Organization [facility] Address [address] [place] [address] Phone Care Team Providers Care Blow Pit Helper Name Role Phone Khang Bingham MD Unavailable [...] Provider Providers Copied on Encounter [facility], [address] [place] [address], [id number], [place] tel:[phone] [facility] No Information Zachery Quiñonez. [address] [place] [address], [id number], [place]. tel:[phone] [facility], [address] [place] [address], [id number], [place] tel:[phone] [facility] No Information Giuliana GAONA Sukhjinder. [address] [place] [address], [id number], [place]. tel:[phone] [facility], [address] [place] [address], [id number], [place] tel:[phone] [facility] Presence of intraocular lens Giuliana GAONA Sukhjinder. [address] [place] [address], [id number], [place]. tel:[phone] Referring Provider: Sukhjinder Giordano MD W, [facility] [facility] [address] [facility], [place], [address] . tel:[phone] [facility], [address] [address], [place], [id number], [place] tel:[phone] [facility] Age-related nuclear cataract, right eye Giuliana GAONA Sukhjinder. [address] [place] [address], [facility] [address], [place], [place], [id number], [place]. tel:[phone] Referring Provider: Khang Saucedo, [address] [place] [address], [address]. tel:[phone] [facility], [address] [place] [address], [id number], [place] tel:[phone] [facility] Presence of intraocular lensAge-relat ed nuclear cataract, right eye Giuliana GAONA Sukhjinder. [address] [place] [address], [address] [address], [place], [place], [id number], [place]. tel:[phone] Referring Provider: Sukhjinder Beatty, [address] [place] [address] [address] [facility], [place], [address] . tel:[phone] [facility], [address] [place] [address], [place], [id number], [place] tel:[phone] [facility] Age-related nuclear cataract, left eye Giuliana GAONA Sukhjinder. [address] [place] [address], [facility] [address], [place], [id number], [place]. tel:[phone] Referring Provider: Khang Saucedo, [address] [place], [address]. tel:[phone] [facility], [address] [place] [address], [place], [id number], [place] tel:[phone] [facility] Age-related nuclear cataract, right eye Giuliana GAONA Sukhjinder. [address] [place] [address], [address], [id number], [place]. tel:[phone] Referring Provider: Sukhjinder Giordano MD W, [address] [place] [address], [place], [address] . tel:[phone] [facility], [address] [place] [address], [id number], [place] tel:[phone] [facility] Age-related nuclear cataract, right eyeAge-relate d nuclear cataract, left eyeNexdtve age-related mclr degn, bilateral, intermed dry stage Giuliana GAONA Sukhjinder. [address] [place] [address], [address], [id number], [place]. tel:[phone] Referring Provider: Sukhjinder Giordano MD W, [address] [place] [address], [place], [address] . tel:[phone] New Patient - Level IV [facility], [address] [place] [address], [id number], [place] tel:[phone] [facility] 1 No Information Leslee Cortez. [address] [place] [address], [id number], . tel:[phone] Referring Provider: Diego Mcmahon, [address] [place] [address], [address] . tel:[phone] Family History Family Member Type Diagnosis Age At Onset Father Problem (finding) glaucoma Payers Payer name Insurance type Covered constitution party ID Authoriza tion(s) No Information Social History [...] Provided Education Material Provided Education Material Provided 370.33 K-Sicca OS>OD 366.16 Nuclear Sclerosis OU Father has Glaucoma. Assessments Type Assessment Date No Information Patient Care Teams Name Effective Dates (start - stop) Status Members No Information
--- OUTSIDE RECORDS SUMMARY | 2024-10-12 12:27 | XMS_ITS | Patient Health Record ---
Author Organization [facility] Address [address] [place] [address] Care Team Providers Care Custom Garment Designer Name Role Phone Do Chan Unavailable [phone] Reason For Referral No Information Medications Medication SIG (Take, Route, Frequency, Duration) Notes Start Date End Date Status Diclofenac Sodium 1% Transdermal 06/16/2021 Active Furosemide 20 MG Oral 06/16/2021 Ac tive Gabapentin 300 MG Oral 06/16/2021 A ctive NEBIVOLOL 5 MG TABLET *Reorder f rom [facility] for eRx and Interaction Alerts* 06/16/2021 Active FLUoxetine HCl 20 MG Oral 06/16/2021 Active CHOLECALCIFEROL (VIT D3) 10 MCG/ML(400 UNIT/ML) ORAL SYRINGE(ORAL USE) *Reorder from Compound Timean for eRx and Interaction Alerts* 06/16/2021 Active amLODIPine Besylate 10 MG Oral 06/16/2021 Active Albuterol Sulfate 1.25 MG/3ML Inhalation 06/16/2021 Active Lidocaine *Pick strength-form from Medispan for eRX* 06/16/2021 Active Synthroid 175 MCG Oral 06/16/2021 A ctive Pantoprazole Sodium 40 MG Oral 06/16/2021 Active LACTOBACILLUS 40-BIFIDOBACT 3-S.THERMOPHILUS 100 BILLION CELL CAPSULE *Reorder from Compound Timespan for eRx and Interaction Alerts* 06/16/2021 Active Docusate Sodium 100 MG Oral 06/16/2021 Active Plan Of Treatment No Information Insurance Providers Payer Name Payer Address Payer Phone Subscriber Number Group Number Insured Name Patient Relationship to Insured Coverage Start Date Coverage End Date Medicare-I l Medicare [address] [place] [id number] FREDI FOFANA Self - patient is the insured For Life [address] [place] [address] [id number] YURY FOFANA Spouse - patient is the spouse of the insured Medical (General) History Surgical History Surgery Date(Month/Year) Cataract surgery () Removal of gallbladder (38969) Hysterectomy (11067) Any surgical history Other
--- OUTSIDE RECORDS SUMMARY | 2024-10-12 12:27 | XMS_ITS | Clinical Summary ---
Author Organization [facility] Address [address] [place] [address] Care Team Providers Care Bartender Manager Name Role Phone Rachell Zuniga MD Primary Care Provider [phone] Allergies Active Allergy Reactions Criticality Noted Date [...] 12:13 PM CDT Height 162.6 cm (5' 4) 12/07/2023 12:13 PM CDT Body Mass Index [...] (2 - 2023- season) 11/06/202308/2021 Influenza Vaccine (#1) 2024 12/13/2023, 2021 Insurance MEDICARE [employer] Care Teams Bartender Manager Relationship Specialty Start Date End Date Rachell Zuniga MD PCP - General Internal Medicine 06/22/21
--- OUTSIDE RECORDS SUMMARY | 2024-10-12 12:27 | XMS_ITS | Continuity of Care Document ---
Author Organization [facility] Address [address] [place] [address] Phone Care Team Providers Care Tool Engineer Name Role Phone Nurse, Suleman Gao Unavailable Unavailable Procedures Procedure Date SARSCOV2 VAC 100MCG/0.5ML IM MODERNA May SARSCOV2 VAC 100MCG/0.5ML IM MODERNA Apr Advance Directives Directive Yes / No Effective Date File Name No Information Encounters Encounter Description Practice Location Reason(s) For Visit Diagnoses Date Provider Providers Copied on Encounter [facility], [address], [id number], tel:[phone] [facility] No Information Nurse Suleman Gao. [address] [place], [address], [place]. tel:[phone] [facility], [address], [id number], [place] tel:[phone] [facility] No Information Nurse Suleman Gao. [address] [place], [address], [place]. tel:[phone] Family History Family Member Type Diagnosis Age At Onset No Information Immunizations Vaccine Date Status Comments Moderna COVID-19 Vaccine (PF) 100 mcg/0.5 mL IM susp (Unapproved) administered Source: New Immuniza tion Record Moderna COVID-19 Vaccine (PF) 100 mcg/0.5 mL IM susp (Unapproved) administered Source: New Immuniza tion Record Payers Payer name Insurance type Covered libertarian ID Authoriza tion(s) [employer] Medicare Polly URBAN [id number] Full Fee CI [id number] [facility] CI [id number] Social History Type Description Quantity Date Captured [...]
[2024-10-12 12:33] VITALS: PULSE 63; O2SAT 99
--- NOTE | 2024-10-12 12:33 | ED_ITS ---
HPI - General Adult General Chief complaint: Altered Mental Status Stated complaint: ams Time Seen by Provider: 10/12/24 12:12 History of Present Illness HPI narrative: 79-year-old female with history of dementia presents to the emergency department for evaluation of a possible urinary tract infection. Patient is cared at home by her . Patient has had worsening confusion and aggression lately. Patient was taken to the urgent care and was then transferred to the emergency department for further evaluation. 8 days ago patient became more agitated and aggressive this resolved and then worsened again yesterday. Patients attempted to get the patient to be evaluated yesterday but she did agree to go to urgent care today. Patient was transferred from her Urgent Care today to be further evaluation or altered mental status. Related Data Home Medications ?Medication ?Instructions ?Recorded ?Confirmed ?Last Taken ?Type docusate sodium 100 mg capsule 100 mg PO BID 11/18/21 09/10/24 Unknown History diclofenac sodium 1 % topical gel 4 g topical QID PRN Pain 05/13/22 09/10/24 03/07/24 History (Arthritis Pain (diclofenac)) telmisartan 40 mg tablet 40 mg PO BID 05/13/22 09/10/24 03/19/24 History spironolactone 25 mg tablet 25 mg PO DAILY 06/15/22 09/10/24 03/19/24 History albuterol sulfate 2.5 mg/3 mL 2.5 mg inhalation Q6-8H 12/28/22 09/10/24 03/20/24 History (0.083 %) solution for nebulization aspirin 81 mg capsule 81 mg PO DAILY 03/08/24 09/10/24 03/07/24 History cholecalciferol (vitamin D3) 50 2,000 unit PO DAILY 03/08/24 09/10/24 03/16/24 History mcg (2,000 unit) capsule omega 3 350 mg-dha 235 mg-epa 90 cap PO DAILY 03/08/24 09/10/24 03/07/24 History mg-fish oil 597 mg capsule,delay rel ([place]-3) vibegron 75 mg tablet (Gemtesa) 75 mg PO DAILY 03/08/24 09/10/24 03/19/24 History vitamins A,C,F-ortt-xpvceb 2,148 2 tablet PO DAILY 03/08/24 09/10/2425 History mcg-113 mg-45 mg-17.4 mg tablet (PreserVision AREDS) CPAP miscellaneous 05/21/24 09/10/24 Unknown History Pain Pump .Route 05/21/24 09/10/24 Unknown History bacitracin 500 unit/gram topical 1 applic topical BID 05/21/24 09/10/24 Unknown History ointment furosemide 20 mg tablet (Lasix) 20 mg PO QPM PRN 05/21/24 09/10/24 Unknown History guaifenesin 600 mg tablet, 600 mg PO Q12H PRN 05/21/24 09/10/24 Unknown History extended release 12 hr (Mucinex) loratadine 10 mg tablet (Claritin) 10 mg PO DAILY PRN 05/21/24 09/10/24 Unknown History oxygen Infiltration 05/21/24 09/10/24 Unknown History potassium chloride 10 mEq 10 meq PO DAILY PRN 05/21/24 09/10/24 Unknown History tablet,extended release (Klor-Con) Allergies Allergy/AdvReac Type Severity Reaction Status Date / Time clindamycin Allergy Severe Chills Verified 10/12/24 11:17 diazepam Allergy Severe suicidal Verified 10/12/24 11:17 ideation levofloxacin (From Levaquin) Allergy Intermediate Itching Verified 10/12/24 11:17 cat dander Allergy Unknown Sinusitis Verified 10/12/24 11:17 dog dander Allergy Unknown Sinusitis Verified 10/12/24 11:17 feathers Allergy Unknown Sinusitis Verified 10/12/24 11:17 grass pollen Allergy Unknown Sinusitis Verified 10/12/24 11:17 house dust Allergy Unknown Sinusitis Verified 10/12/24 11:17 Rabbit Allergy Unknown Sinusitis Verified 10/12/24 11:17 tree and shrub pollen Allergy Unknown Sinusitis Verified 10/12/24 11:17 adhesive tape Allergy Redness of Verified 10/12/24 11:17 Skin silicone Allergy Unknown Verified 10/12/24 11:17 meperidine (From Demerol) AdvReac Hallucinati Verified 10/12/24 11:17 ng oxycodone (From Percocet) AdvReac Nausea Verified 10/12/24 11:17 propoxyphene AdvReac Nausea and Verified 10/12/24 11:17 Vomiting Review of Systems 2 Review of Systems: All systems reviewed & are unremarkable except as noted in HPI and below PMFSH Past Medical History Medical History Femur fracture, right Surgical screws Fracture, foot Right Metatarsal Anemia Undifferentiated connective tissue disease Depression with anxiety COPD (chronic obstructive pulmonary disease) NBA on CPAP Dementia History of ARDS Diastolic dysfunction History of nuclear stress test History of abnormal electrocardiogram Egnevieve's thyroiditis Rosacea w/ ocular involvement Depression History of rectocele History of migraine headaches Spondylosis of cervical spine Arthralgia H/O antinuclear antibodies intermittent +ABRAM to 1:320 Vascular disorder seronegative collagen disorder History of squamous cell carcinoma History of staph infection Chronic left shoulder pain arthritis; possibly inflammatory Fracture, rib Aftercare following finger joint replacement surgery Thyroiditis Scoliosis History of left heart catheterization Tubal ligation evaluation Enlarged ureter Supplemental oxygen dependent Hypertension Fibromyalgia CHF (congestive heart failure) Surgical History Surgical History History of cataract extraction with lens replacement History of arthroplasty of knee Left History of removal of pigmented skin lesion Nose 2021 History of hysterectomy Total History of ERCP History of fusion of lumbar spine L2-L5 lumbar fusion Titanium History of laminectomy History of total knee replacement History of cholecystectomy 2002 History of tubal ligation History of D&C History of hip surgery right Total knee replacement status Previous back surgery S/P peroneal tendon repair History of surgical removal of ganglion cyst 1960 H/O hernia repair 1947 Family History Family History Unknown No problems noted. Mother Esophageal cancer Other Alcohol abuse Cancer Hypertension Social History Social History Social History: She lives with her and has 3 biologic children. She also has 1 adopted child. 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 She is a former smoker. Code status full code Smoking packs per day: 1.5 Smoking cigarettes per day: 30.0 Years smoked: 15 Smoking pack-years: 22.50 Smoking status: Former smoker Tobacco type: cigarettes Smoking end date: 11/23/81 Additional smoking assessment comments: quit 1981 Alcohol intake: current Alcohol use details: 0-1 per week Substance use: never Substance use type: does not use Do You Feel Safe in your Home?: Yes Lack of Transportation: No Lack of Food: Never True Current Housing: I Have Housing Concerned About Future Housing: No Difficulty Paying Gas/Electric Bills: No Difficulty Paying for Meds: No Currently Unemployed: No Education: Associate Degree Difficulty w/ Childcare or Family Care: No Living arrangements: with family Additional living arrangements comments: [facility]. Occupation/Education: retired Gender identity (if verbalized by the patient): Female Spiritual care concerns: No Agree to blood products: Yes Exam 2 Narrative: APPEARANCE: Well appearing, no pain, no distress, well-nourished. HEAD: normocephalic, atraumatic. EYES: PERRLA/EOMI, conjunctivae clear. NOSE: Normal no drainage EARS:TMS clear with good light reflex. THROAT: Pharynx clear, no exudate. NECK: Supple. No adenopathy, no masses. RESPIRATORY: Airway patent, respirations nonlabored. Clear to auscultation bilaterally, no rales, rhonchi, wheezing. CARDIOVASCULAR: Regular rate and rhythm without murmurs rubs or gallops. ABDOMINAL: Soft, nontender, nondistended, normal bowel sounds MUSCULOSKELETAL: Moves all extremities. Strength/ROM intact, No edema, No calf tenderness. NEURO: Alert. Cranial nerves II through XII intact. Good gait. Good coordination SKIN: Warm, dry. Normal Color Course Vital Signs Vital signs: Vital Signs Temperature 98.2 F 10/12/24 12:14 Pulse Rate 63 10/12/24 12:14 Respiratory Rate 16 10/12/24 12:14 Blood Pressure 161/78 H 10/12/24 12:14 Pulse Oximetry 99 10/12/24 12:14 Oxygen Delivery Nasal Cannula 10/12/24 12:14 Oxygen Flow Rate 2 10/12/24 12:14 Temperature 98.1 F 10/12/24 15:10 Pulse Rate 65 10/12/24 15:10 Respiratory Rate 16 10/12/24 15:10 Blood Pressure 165/77 H 10/12/24 15:10 Pulse Oximetry 72 L 10/12/24 15:10 Oxygen Delivery Nasal Cannula 10/12/24 12:35 Oxygen Flow Rate 2 10/12/24 12:35 Medical Decision Making MDM Narrative Medical decision making narrative: 79-year-old female present to the emergency department for evaluation for increased agitation. Patient had negative CT scan. Patient was positive for urinary tract infection. Patient is currently afebrile with no leukocytosis hemoglobin 10.4. INR is 1.0 with no acute abnormalities on her CMP and lactic acid. Patient is in no acute distress at time of evaluation and at time of recheck. I did discuss the case with the he prefers to take the patient home. Patient states she does feel safe going back home. I did discuss admission for the patient with the patient's , the primary special needs child caregiver, he did not feel uncomfortable taking care for the patient at home. All questions concerns were addressed. Patient was treated with 1 g of IV Rocephin the emergency department lipid discharged home on Keflex. Urine culture is pending. Differential Diagnosis Differential Diagnosis: Subdural hematoma, subarachnoid hemorrhage, urinary tract infection, pneumonia, dementia, delirium, aggression Vital Signs Vital Signs: Vital Signs Temperature 98.2 F 10/12/24 12:14 Pulse Rate 63 10/12/24 12:14 Respiratory Rate 16 10/12/24 12:14 Blood Pressure 161/78 H 10/12/24 12:14 Pulse Oximetry 99 10/12/24 12:14 Oxygen Delivery Nasal Cannula 10/12/24 12:14 Oxygen Flow Rate 2 10/12/24 12:14 Temperature 98.1 F 10/12/24 15:10 Pulse Rate 65 10/12/24 15:10 Respiratory Rate 16 10/12/24 15:10 Blood Pressure 165/77 H 10/12/24 15:10 Pulse Oximetry 72 L 10/12/24 15:10 Oxygen Delivery Nasal Cannula 10/12/24 12:35 Oxygen Flow Rate 2 10/12/24 12:35 Lab Data Lab results reviewed: Yes I reviewed the patient's lab results. 10/12/24 13:12 10/12/24 13:12 Labs: Lab Results 10/12/24 10/12/24 Range/Units 13:12 13:58 WBC 5.8 (4.5-10.0) K/mm3 RBC 3.41 L (4.2-5.4) M/mm3 Hgb 10.4 L (12.0-15.0) g/dL Hct 32.4 L (37.0-47.0) % MCV 95.0 (80-100) fl MCH 30.5 (26-34) pg MCHC 32.1 (32-36) g/dl RDW 14.4 (11.5-14.5) % Plt Count 127 L (150-375) k/mm3 MPV 11.0 H (7.4-10.4) fl Immature Gran % (Auto) 0.7 H (0-0.5) % Neut % (Auto) 60.7 (45.5-73.1) % Lymph % (Auto) 13.6 L (18.3-44.2) % Pepin % (Auto) 22.5 H (2.6-8.5) % Eos % (Auto) 2.2 (0-4.4) % Baso % (Auto) 0.3 (0.2-1.2) % Lymph # (Auto) 0.79 L (0.9-3.2) K/mm3 Pepin # (Auto) 1.3 H (0.1-0.6) K/mm3 Eos # (Auto) 0.1 (0-0.3) K/mm3 Baso # (Auto) 0.0 (0.0-0.1) K/mm3 Abs Immat Gran (auto) 0.04 H (0.00-0.031) K/mm3 Absolute Neuts (auto) 3.5 (1.3-6.7) K/mm3 Absolute Nucleated RBC 0.000 (0.0-0.012) K/mm3 Nucleated RBC % 0.0 (0.0-0.2) % % Immature Plt Fraction 4.7 (0.9-11.2) % PT 14.6 (11.1-14.7) Seconds INR 1.1 APTT 30.5 (22.3-36.8) Seconds Sodium 133 L (137-145) mmol/L Potassium 4.5 (3.4-5.0) mmol/L Chloride 100 (98-107) mmol/L Carbon Dioxide 23 (22-30) mmol/L Anion Gap 10 (4-12) mmol/L BUN 13 (7-17) mg/dL Creatinine 0.79 (0.7-1.0) mg/dL Estim Creat Clear Calc Not Reportable Estimated GFR > 60 (59 - ) Glucose 100 (65-110) mg/dL Lactic Acid 0.7 (0.7-2.0) mmol/L Calcium 10.0 (8.4-10.2) mg/dL Total Bilirubin 1.2 (0.2-1.3) mg/dL AST 31 (14-36) U/L ALT 17 (6-35) U/L Alkaline Phosphatase 86 (38-126) U/L Total Protein 7.3 (6.3-8.2) g/dL Albumin 4.5 (3.5-5.1) g/dL Urine Color Yellow (Yellow) Urine Appearance Cloudy H (Clear) Urine pH 6.0 (5.0-9.0) Ur Specific Ismay 1.011 (1.001-1.035) Urine Protein Trace (Negative) mg/dL Urine Glucose (UA) Negative (Negative) mg/dL Urine Ketones Negative (Negative) mg/dL Ur Blood (Man) Negative (Negative) Urine Nitrate Negative (Negative) Urine Bilirubin Negative (Negative) Urine Urobilinogen 0.2 (<2.0) mg/dL Leukocyte Esterase Rfl 2+ H (Negative) ARMANDO/UL Urine RBC 0-2 (0-2) /hpf Urine WBC 21-50 H (0-3) /hpf Ur Squamous Epith Cells None seen (Few) /hpf Urine Bacteria 4+ H /hpf Urine Casts 0-2 Imaging Data Radiologist's impression: Impressions Head CT 10/12/24 12:53 IMPRESSION: 1. Normal aging brain with mild to moderate diffuse volume loss and mild scattered white matter hypoattenuation consistent with chronic small vessel ischemic disease. No acute intracranial process. Chest X-Ray 10/12/24 14:37 Impression: 1: Stable chronic interstitial lung disease. Discharge Plan Discharge Clinical Impression: Acute UTI, Aggression Patient Disposition: Home Condition: Stable Instructions: Antibiotic Form, Urinary Tract Infection in Women (DC) Additional Instructions: Antibiotic as directed for your urinary tract infection. Have close follow-up with your primary care physician. If you have any worsening symptoms then please call or return to the emergency department. You were treated with a dose of fluconazole in the emergency department. Take your 2nd dose of fluconazole after you complete your antibiotics. Patient Language: Estonian Prescriptions: New cephalexin 500 mg capsule 500 mg PO Q8H 7 Days Qty: 21 0RF fluconazole 150 mg tablet 150 mg PO ONCE Qty: 1 0RF Rx Instructions: as a single dose after completing your antibiotics No Action docusate sodium 100 mg capsule 100 mg PO BID telmisartan 40 mg tablet 40 mg PO BID diclofenac sodium [Arthritis Pain (diclofenac)] 1 % gel 4 g topical QID PRN (Reason: Pain) Rx Instructions: apply to single knee, ankle, foot; for foot includes sole/toes/top of foot spironolactone 25 mg tablet 25 mg PO DAILY albuterol sulfate 2.5 mg /3 mL (0.083 %) solution for nebulization 2.5 mg inhalation Q6-8H lidocaine HCl 10 mg/mL (1 %) solution 0.01 ml Infiltration ONCE Qty: 2 0RF lidocaine HCl 10 mg/mL (1 %) solution 0.5 ml subcut ONCE PRN (Reason: not used) Qty: 2 0RF naloxone 4 mg/actuation spray,non-aerosol 4 mg intranasal Q2-3M PRN (Reason: opioid overdose) Qty: 2 1RF Rx Instructions: spray 1 dose into ONE nostril; repeat every 2-3 minutes until responsive, alternating nostrils w each dose until help arrives albuterol sulfate 90 mcg/actuation HFA aerosol inhaler 1 - 2 puff inhalation Q4-6H PRN (Reason: shortness of breath or wheezing) Qty: 25.5 3RF oxygen Infiltration CPAP miscellaneous Pain Pump .Route Patient Comments: prescribed by pain management Rx Instructions: Primary: Hydromorphone 125.0mcg/mL Secondary: Clonidine 200.0mcg/mL,Bupivacaine 5,000mcg/mL potassium chloride [Klor-Con 10] 10 mEq tablet extended release 10 meq PO DAILY PRN Patient Comments: take only when taking Lasix furosemide [Lasix] 20 mg tablet 20 mg PO QPM PRN loratadine [Claritin] 10 mg tablet 10 mg PO DAILY PRN guaifenesin [Mucinex] 600 mg tablet extended release 12hr 600 mg PO Q12H PRN bacitracin 500 unit/gram ointment 1 applic topical BID aspirin 81 mg capsule 81 mg PO DAILY Gemtesa 75 mg tablet 75 mg PO DAILY cholecalciferol (vitamin D3) 50 mcg (2,000 unit) capsule 2,000 unit PO DAILY PreserVision AREDS 2,148 mcg-113 mg-45 mg-17.4mg tablet 2 tablet PO DAILY Rx Instructions: administer with a meal [place]-3 350 mg-235 mg- 90 mg-597 mg capsule,delayed release(DR/EC) PO DAILY Trelegy Ellipta 200-62.5-25 mcg blister with device 1 inh inhalation DAILY Qty: 180 3RF Rx Instructions: Rinse mouth and spit after each use lidocaine 5 % adhesive patch,medicated See Rx Instructions .ROUTE .COMPLEX Qty: 90 3RF Dose Instruction: APPLY 1 PATCH TO LOW BACK FOR 12 HOURS PER DAY Rx Instructions: APPLY 1 PATCH TO LOW BACK FOR 12 HOURS PER DAY amlodipine 10 mg tablet 10 mg PO DAILY Qty: 90 1RF donepezil 5 mg tablet 5 mg PO QHS Qty: 90 1RF fluoxetine 20 mg capsule 20 mg PO TID Qty: 270 1RF gabapentin 300 mg capsule 300 mg PO TID Qty: 270 1RF montelukast 10 mg tablet 10 mg PO DAILY Qty: 90 1RF pantoprazole 40 mg tablet,delayed release (DR/EC) 40 mg PO BID Qty: 180 1RF pravastatin 40 mg tablet 40 mg PO DAILY Qty: 90 1RF levothyroxine [Synthroid] 150 mcg tablet 150 mcg PO DAILY Qty: 90 1RF nebivolol [Bystolic] 10 mg tablet 10 mg PO DAILY Qty: 90 1RF folic acid 1 mg tablet 1 mg PO DAILY Qty: 90 1RF Follow-up/Referrals: Kristofer Key DO [Primary Care Provider] -
[2024-10-12 12:35] VITALS: O2SAT 99
[2024-10-12 13:23] LABS: Hematocrit 32.4 % (37.0-47.0); Hemoglobin 10.4 g/dL (12.0-15.0); Immature Granulocyte Percent A 0.7 % (0-0.5); Immature Platelet Fraction Pct 4.7 % (0.9-11.2); Lymphocytes Absolute Auto 0.79 K/mm3 (0.9-3.2); Mean Corpuscular HGB Conc 32.1 g/dl (32-36); Mean Corpuscular Hemoglobin 30.5 pg (26-34); Mean Corpuscular Volume 95.0 fl (80-100); Nucleated Red Blood Cells Absolute Auto 0.000 K/mm3 (0.0-0.012); Nucleated Red Blood Cells Perc 0.0 % (0.0-0.2); Platelet Count Result 127 k/mm3 (150-375); Red Blood Count 3.41 M/mm3 (4.2-5.4); White Blood Count 5.8 K/mm3 (4.5-10.0)
[2024-10-12 13:32] LABS: INR 1.1; Prothrombin Time 14.6 Seconds (11.1-14.7)
[2024-10-12 13:33] LABS: Partial Thromboplastin Time 30.5 Seconds (22.3-36.8)
[2024-10-12 13:41] LABS: Alanine Aminotransferase 17 U/L (6-35); Albumin Level 4.5 g/dL (3.5-5.1); Alkaline Phosphatase 86 U/L (38-126); Anion Gap 10 mmol/L (4-12); Aspartate Amino Transferase 31 U/L (14-36); Bilirubin,Total 1.2 mg/dL (0.2-1.3); Blood Urea Nitrogen 13 mg/dL (7-17); Calcium 10.0 mg/dL (8.4-10.2); Carbon Dioxide 23 mmol/L (22-30); Chloride 100 mmol/L (98-107); Estimated Glomerular Filt Rate > 60; Glucose 100 mg/dL (65-110); Potassium 4.5 mmol/L (3.4-5.0); Sodium 133 mmol/L (137-145); Total Protein 7.3 g/dL (6.3-8.2)
[2024-10-12 14:14] LABS: Add Urine Microscopic? YES; Appearance Urine Cloudy (Clear); Glucose Urine UA Negative (Negative); Leukocyte Esterase Ur 2+ LEU/UL (Negative); Nitrate Urine Negative (Negative); Non Pathogenic Casts 0-2; Specific Grav Ur 1.011 (1.001-1.035)
[2024-10-12 14:15] VITALS: BP 153/70; PULSE 63; RESP 20; O2SAT 98
[2024-10-12] MEDS: cefTRIAXone 1 GM in SODIUM CHLORIDE 0.9% IV 50 ML 100 ML IVPB (14:27)
--- NOTE | 2024-10-12 14:32 | PC.NURSE ---
Patient wanting to talk to Dr Tabares regarding Douche-when asked why-jef reported that my vagina itches. Dr Tabares made aware
[2024-10-12] MEDS: FLUCONAZOLE 150 MG TABLET PO (14:37)
[2024-10-12 15:10] VITALS: BP 165/77; PULSE 65; RESP 16; TEMP 36.7; O2SAT 72
== END 2024-10-12 15:26 | disposition home or self-care (01) ==
PROVIDERS: Emergency Provider Emergency Medicine; PCP Internal Medicine
DX: N39.0 Urinary tract infection, site not specified (principal); F02.811 Dementia in other diseases classified elsewhere, unspecified severity, with agitation; G47.33 Obstructive sleep apnea (adult) (pediatric); Z99.89 Dependence on other enabling machines and devices; J44.9 Chronic obstructive pulmonary disease, unspecified; F41.8 Other specified anxiety disorders; E06.3 Autoimmune thyroiditis; I50.9 Heart failure, unspecified; I11.0 Hypertensive heart disease with heart failure; Z87.891 Personal history of nicotine dependence
CPT/HCPCS: 36415; 70450; 71045; 80053; 81001; 83605; 85025; 85055; 85610; 85730; 87086; 96365; 99284; A9270; J0696

== ENCOUNTER 2024-10-17 11:31 | Inpatient (IN) | payer MEDICARE, OTHER, SELFPAY ==
[2024-10-17] VITALS (10 sets, daily range): BP systolic 137–238; BP diastolic 64–112; PULSE 60–68; RESP 16–18; TEMP 36.4–37.3; O2SAT 96–99; BMI 32.6; BMI 33.7
--- NOTE | ~2024-10-17 | CT_ITS ---
EXAMINATION: CT brain wo con DATE: 10/17/2024 12:33 INDICATION: Altered TECHNIQUE: Computed tomography (CT) of the head was performed without intravenous contrast. The dose- length product was 605.33 mGy-cm. COMPARISON: 10/12/2024 FINDINGS: No acute intracranial hemorrhage. No mass effect. No midline shift. There are small low density regions scattered throughout the periventricular and deep white matter frias ggestive of chronic scenographic matter change similar to the prior study from 10/12/2024. Mild cerebral atrophy appropriate for the patient's age. Skull is grossly unchanged. Visualized paranasal sinuses and mastoid air cells are grossly clear. IMPRESSION: 1. No acute intracranial hemorrhage. No mass effect. 2. Probable chronic ischemic white matter change. 3. Cerebral atrophy appropriate for the patient's age. Reviewed, dictated and finalized at location A.
--- NOTE | ~2024-10-17 | XR_ITS ---
MODIFIED ESOPHAGRAM HISTORY: Failed bedside swallow study TECHNIQUE: Modified barium esophagram was performed on 10/24/2024. I administered fluoroscopy and performed the exam with speech pathologist. Patient was seated for lateral fluoroscopic imaging for ingestion of thin liquids, pudding, solids and quantified amounts, followed by thin liquids in uncontrolled amounts. This was recorded on tape. A single fluoroscopic spot image was also recorded. The DAP for this procedure was 2.021 Gycm2. The amount of fluoroscopy time used during this procedure was 2.3 minutes. FINDINGS: Oral stage: Adequate function. Pharyngeal stage: Transient/flash laryngeal penetration with thin liquids during the swallow secondary to reduced laryngeal elevation. No aspiration.. Cervical/esophageal stage: Adequate function. IMPRESSION: Pharyngeal dysphagia with transient laryngeal penetration without aspiration Please correlate with speech pathologist findings and specific feeding recommendations. Reviewed, dictated and finalized at location A. IMPRESSION: Pharyngeal dysphagia with transient laryngeal penetration without a spiration Please correlate with speech pathologist findings and specific feedi ng recommendations.
--- NOTE | ~2024-10-17 | XR_ITS ---
XR chest 2V 10/17/2024 12:42 Indication: Altered mental status Procedure: 2 view chest Comparison: Comparison to multiple prior studies sequentially, with oldest reviewed study dated 10/2022. Findings: Cardiomegaly. Scoliosis. Left basilar airspace disease has developed. No significant effusi on. No pneumothorax. Impression: 1: Left basilar airspace disease may represent pneumonia or less likely asymmetric edema. Reviewed, dictated and finalized at location A. Impression: 1: Left basilar airspace disease may represent pneumonia or less likely asymmet trupti edema.
[2024-10-17 12:23] LABS: Add Urine Microscopic? NO; Appearance Urine Clear (Clear); Glucose Urine UA Negative (Negative); Leukocyte Esterase Ur Negative LEU/UL (Negative); Nitrate Urine Negative (Negative); Specific Grav Ur 1.007 (1.001-1.035)
[2024-10-17 12:25] LABS: Hematocrit 33.1 % (37.0-47.0); Hemoglobin 10.9 g/dL (12.0-15.0); Immature Granulocyte Percent A 0.7 % (0-0.5); Immature Platelet Fraction Pct 6.4 % (0.9-11.2); Lymphocytes Absolute Auto 0.67 K/mm3 (0.9-3.2); Mean Corpuscular HGB Conc 32.9 g/dl (32-36); Mean Corpuscular Hemoglobin 30.3 pg (26-34); Mean Corpuscular Volume 91.9 fl (80-100); Nucleated Red Blood Cells Absolute Auto 0.000 K/mm3 (0.0-0.012); Nucleated Red Blood Cells Perc 0.0 % (0.0-0.2); Platelet Count Result 136 k/mm3 (150-375); Red Blood Count 3.60 M/mm3 (4.2-5.4); White Blood Count 5.7 K/mm3 (4.5-10.0)
--- OUTSIDE RECORDS SUMMARY | 2024-10-17 12:31 | XMS_ITS | Continuity of Care Document ---
Author Organization [facility] Address [address] [place] [address] Phone Care Team Providers Care Commercial Specialist Name Role Phone Khang Bingham MD Unavailable [...] Provider Providers Copied on Encounter [facility], [address] [place] [address], [id number], [place] tel:[phone] [facility] No Information Zachery Quiñonez. [address] [place] [address], [id number], [place]. tel:[phone] [facility] [place], [address] [place] [address], [id number], [place] tel:[phone] [facility] No Information Giuliana GAONA Sukhjinder. [address] [place] [address], [id number], [place]. tel:[phone] [facility], [place], [address] [place] [address], [id number], [place] tel:[phone] [facility] Presence of intraocular lens Giuliana GAONA Sukhjinder. [address] [place] [address], [id number], [place]. tel:[phone] Referring Provider: Sukhjinder Giordano MD W, [facility] [address] [facility], [place], [address] . tel:[phone] [facility], [address] [address], [place], [place], [id number], [place] tel:[phone] [facility] Age-related nuclear cataract, right eye Giuliana GAONA Sukhjinder. [address] [place] [address], [facility] [address], [place], [place], [id number], [place]. tel:[phone] Referring Provider: Khang Saucedo, [address] [place] [address], [id number]. tel:[phone] [facility], [address] [place] [address], [id number], [place] tel:[phone] [facility] Presence of intraocular lensAge-relat ed nuclear cataract, right eye Giuliana GAONA Sukhjinder. [address] [place] [address], [place] [address], [place], [place], [id number], [place]. tel:[phone] Referring Provider: Sukhjinder [place], [address] [place] [address] Suite [facility], [place], [address] . tel:[phone] [facility] [place], [address] [place] [address], [place], [place], [id number], [place] tel:[phone] [facility] Age-related nuclear cataract, left eye Giuliana GAONA Sukhjinder. [address] [place] [address], [facility] [address], [place], [place], [id number], [place]. tel:[phone] Referring Provider: Khang Saucedo, [address] [place], [address]. tel:[phone] [facility], [place], [address] [place] [address], [place], [place], [id number], [place] tel:[phone] [facility] Age-related nuclear cataract, right eye Giuliana GAONA Sukhjinder. [address] [place] [address], [address], [id number], [place]. tel:[phone] Referring Provider: Sukhjinder Giordano MD W, [address] [place] [address], [place], [address] . tel:[phone] [facility], [address] [place] [address], [id number], [place] tel:[phone] [facility] Age-related nuclear cataract, right eyeAge-relate d nuclear cataract, left eyeNexdtve age-related mclr degn, bilateral, intermed dry stage Giuliana GAONA Sukhjinder. [address] [place] [address], [address], [id number], [place]. tel:[phone] Referring Provider: Sukhjinder Giordano MD W, [address] [place] [address], [place], [address] . tel:[phone] New Patient - Level IV [facility], [address] [place] [address], [id number], [place] tel:[phone] [facility] 1 No Information Leslee Cortez. [address] [place] [address], [id number], . tel:[phone] Referring Provider: Diego Mcmahon, [address] [place] [address], [id number] . tel:[phone] Family History Family Member Type Diagnosis Age At Onset Father Problem (finding) glaucoma Payers Payer name Insurance type Covered green party ID Authoriza tion(s) No Information Social [...]
--- OUTSIDE RECORDS SUMMARY | 2024-10-17 12:32 | XMS_ITS | Continuity of Care Document ---
Author Organization [facility] Address [address] [place] [address] Phone Care Team Providers Care Calcine Furnace Tender Name Role Phone Nurse, Suleman Gao Unavailable Unavailable Procedures Procedure Date SARSCOV2 VAC 100MCG/0.5ML IM MODERNA May SARSCOV2 VAC 100MCG/0.5ML IM MODERNA Apr Advance Directives Directive Yes / No Effective Date File Name No Information Encounters Encounter Description Practice Location Reason(s) For Visit Diagnoses Date Provider Providers Copied on Encounter [facility], [address], [id number], tel:[phone] [facility] No Information Nurse Suleman Gao. [address] [place], [address], [place]. tel:[phone] [facility], [address], [id number], [place] tel:[phone] [facility] No Information Nurse Suleman Gao. [address] [place], [address], [place]. tel:[phone] Family History Family Member Type Diagnosis Age At Onset No Information Immunizations Vaccine Date Status Comments Moderna COVID-19 Vaccine (PF) 100 mcg/0.5 mL IM susp (Unapproved) administered Source: New Immuniza tion Record Moderna COVID-19 Vaccine (PF) 100 mcg/0.5 mL IM susp (Unapproved) administered Source: New Immuniza tion Record Payers Payer name Insurance type Covered alliance party ID Authoriza tion(s) [employer] Medicare Polly URBAN [id number] Full Fee CI [id number] [facility] CI [id number] Social History Type Description Quantity Date Captured [...]
--- OUTSIDE RECORDS SUMMARY | 2024-10-17 12:32 | XMS_ITS | Patient Health Record ---
Author Organization [facility] [employer] Address [address] [place] [address] Care Team Providers Care Desktop Support Technician Name Role Phone Do Chan Unavailable [phone] Reason For Referral No Information Medications Medication SIG (Take, Route, Frequency, Duration) Notes Start Date End Date Status Diclofenac Sodium 1% Transdermal 06/16/2021 Active Furosemide 20 MG Oral 06/16/2021 Ac tive Gabapentin 300 MG Oral 06/16/2021 A ctive NEBIVOLOL 5 MG TABLET *[facility] and Interaction Alerts* 06/16/2021 Active FLUoxetine HCl 20 MG Oral 06/16/2021 Active CHOLECALCIFEROL (VIT D3) 10 MCG/ML(400 UNIT/ML) ORAL SYRINGE(ORAL USE) *Reorder from [employer] for eRx and Interaction Alerts* 06/16/2021 Active amLODIPine Besylate 10 MG Oral 06/16/2021 Active Albuterol Sulfate 1.25 MG/3ML Inhalation 06/16/2021 Active Lidocaine *Pick strength-form from [employer] for eRX* 06/16/2021 Active Synthroid 175 MCG Oral 06/16/2021 A ctive Pantoprazole Sodium 40 MG Oral 06/16/2021 Active LACTOBACILLUS 40-BIFIDOBACT 3-S.THERMOPHILUS 100 BILLION CELL CAPSULE *Reorder from [employer] for eRx and Interaction Alerts* 06/16/2021 Active Docusate Sodium 100 MG Oral 06/16/2021 Active Plan Of Treatment No Information Insurance Providers Payer Name Payer Address Payer Phone Subscriber Number Group Number Insured Name Patient Relationship to Insured Coverage Start Date Coverage End Date Medicare-I l Medicare [address] [place] [phone] [id number] FREDI FOFANA Self - patient is the insured For Life [address] [place] [address] [id number] YURY FOFANA Spouse - patient is the spouse of the insured Medical (General) History Surgical History Surgery Date(Month/Year) Cataract surgery () Removal of gallbladder (63230) Hysterectomy (70450) Any surgical history Other
--- OUTSIDE RECORDS SUMMARY | 2024-10-17 12:32 | XMS_ITS | Patient Health Record ---
Author Organization [facility] Address [address] [place] [address] Care Team Providers Care Section Supervisor Name Role Phone AFA, Internal Medicine [employer] Primary Care Provide r Unavailable Kristofer Frost DO Unavailable [phone] Allergies Allergen (clinical drug ingredient) Drug/Non Drug [...] Active Metoprolol Tartrate 25-37.5mg Tab As Directed ([facility]) 07/17/2003 Active Trelegy Ellipta 100-62.5-25 MCG/INH 1 puff Inhalation Once a day Active PROzac 20 MG 3 capsules Orally On ce a day ([facility]) 07/16/2003 Active amLODIPine Besylate 2.5 MG 1 tablet Oral ly Once a day; Duration: 30 day(s) Active Neurontin 600 MG 1 tablet Orally tid ([facility]) 07/16/2003 Active Synthroid 175 MCG Orally 1 TABLET DAILY ([facility]) 07/16/2003 Active Pantoprazole Sodium 40 MG 1 [...] Status W/U Status Risk Notes Problem Fibromyalgia (490450235) Fibromyalgia (M79.7) Active confirmed Problem Chronic pain (84026546) Chronic Pain (G89.29) Active confirmed Problem Localized, primary osteoarthritis of the hand (842848341) Osteoarthritis, primary, 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) Active confirmed Problem Collagen disease (89119187) Connective Tissue Disorder, Systemic involvement, 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
--- OUTSIDE RECORDS SUMMARY | 2024-10-17 12:32 | XMS_ITS | Clinical Summary ---
Author Organization [facility] Address [address] [place] [address] Care Team Providers Care Hat And Cap Sewer Name Role Phone Rachell Zuniga MD Primary Care Provider [phone] Allergies Active Allergy Reactions Criticality Noted Date [...] Vaccine (#1) 2024 12/13/2023, 2021 Insurance MEDICARE [employer] Care Teams Hat And Cap Sewer Relationship Specialty Start Date End Date Rachell Zuniga MD PCP - General Internal Medicine 06/22/21
[2024-10-17 12:33] LABS: Alanine Aminotransferase 21 U/L (6-35); Albumin Level 4.8 g/dL (3.5-5.1); Alkaline Phosphatase 82 U/L (38-126); Anion Gap 7 mmol/L (4-12); Aspartate Amino Transferase 35 U/L (14-36); Bilirubin,Total 1.3 mg/dL (0.2-1.3); Blood Urea Nitrogen 12 mg/dL (7-17); Calcium 10.6 mg/dL (8.4-10.2); Carbon Dioxide 28 mmol/L (22-30); Chloride 91 mmol/L (98-107); Estimated CRCL calculation 53 ml/min; Estimated Glomerular Filt Rate > 60; Glucose 100 mg/dL (65-110); Potassium 4.6 mmol/L (3.4-5.0); Sodium 126 mmol/L (137-145); Total Protein 7.7 g/dL (6.3-8.2)
[2024-10-17 12:41] LABS: Cannabinoid Screen Urine Negative (Negative)
[2024-10-17 12:59] LABS: SARS-CoV-2 RNA PCR Negative (Negative)
[2024-10-17 13:06] LABS: Thyroid Stimulating Hormone Reflex 0.713 uIU/mL (0.465-4.68)
--- NOTE | 2024-10-17 13:27 | ED_ITS ---
HPI - Altered Mental Status General Chief Complaint: Altered Mental Status Stated Complaint: recent UTI and combative Time Seen by Provider: 10/17/24 12:25 History of Present Illness HPI narrative: This is an 79-year-old female with history of dementia, COPD, CHF who presents the ED for AMS. Patient states that she is not sure why she is here. She states that she got mad at her and he apparently called EMS because of this. Per over the phone, on tuesday, patient was treated for UTI. She was acting similarly then. She had improved mental status, but it worsened again this morning. She has been refusing to wear oxygen and wouldn't put on CPAP. Also reports she has been cutting at her wrist with fingernails. Related Data Home Medications ?Medication ?Instructions ?Recorded ?Confirmed ?Last Taken ?Type docusate sodium 100 mg capsule 100 mg PO BID 11/18/21 09/10/24 Unknown History diclofenac sodium 1 % topical gel 4 g topical QID PRN Pain 05/13/22 09/10/24 03/07/24 History ([facility] (diclofenac)) telmisartan 40 mg tablet 40 mg PO BID 05/13/22 09/10/24 03/19/24 History spironolactone 25 mg tablet 25 mg PO DAILY 06/15/22 09/10/24 03/19/24 History albuterol sulfate 2.5 mg/3 mL 2.5 mg inhalation Q6-8H 12/28/22 09/10/24 03/20/24 History (0.083 %) solution for nebulization aspirin 81 mg capsule 81 mg PO DAILY 03/08/24 09/10/24 03/07/24 History cholecalciferol (vitamin D3) 50 2,000 unit PO DAILY 03/08/24 09/10/24 03/16/24 History mcg (2,000 unit) capsule omega 3 350 mg-dha 235 mg-epa 90 cap PO DAILY 03/08/24 09/10/24 03/07/24 History mg-fish oil 597 mg capsule,delay rel ([place]-3) vibegron 75 mg tablet (Gemtesa) 75 mg PO DAILY 03/08/24 09/10/24 03/19/24 History vitamins A,C,K-yjcp-ebcqrm 2,148 2 tablet PO DAILY 03/08/24 09/10/2403/16/25 History mcg-113 mg-45 mg-17.4 mg tablet (PreserVision AREDS) CPAP miscellaneous 05/21/24 09/10/24 Unknown History Pain Pump .Route 05/21/24 09/10/24 Unknown History bacitracin 500 unit/gram topical 1 applic topical BID 05/21/24 09/10/24 Unknown History ointment furosemide 20 mg tablet (Lasix) 20 mg PO QPM PRN 05/21/24 09/10/24 Unknown History guaifenesin 600 mg tablet, 600 mg PO Q12H PRN 05/21/24 09/10/24 Unknown History extended release 12 hr (Mucinex) loratadine 10 mg tablet (Claritin) 10 mg PO DAILY PRN 05/21/24 09/10/24 Unknown History oxygen Infiltration 05/21/24 09/10/24 Unknown History potassium chloride 10 mEq 10 meq PO DAILY PRN 05/21/24 09/10/24 Unknown History tablet,extended release (Klor-Con) Allergies Allergy/AdvReac Type Severity Reaction Status Date / Time clindamycin Allergy Severe Chills Verified 10/17/24 11:47 diazepam Allergy Severe suicidal Verified 10/17/24 11:47 ideation levofloxacin (From Levaquin) Allergy Intermediate Itching Verified 10/17/24 11:47 cat dander Allergy Unknown Sinusitis Verified 10/17/24 11:47 dog dander Allergy Unknown Sinusitis Verified 10/17/24 11:47 feathers Allergy Unknown Sinusitis Verified 10/17/24 11:47 grass pollen Allergy Unknown Sinusitis Verified 10/17/24 11:47 house dust Allergy Unknown Sinusitis Verified 10/17/24 11:47 Rabbit Allergy Unknown Sinusitis Verified 10/17/24 11:47 tree and shrub pollen Allergy Unknown Sinusitis Verified 10/17/24 11:47 adhesive tape Allergy Redness of Verified 10/17/24 11:47 Skin silicone Allergy Unknown Verified 10/17/24 11:47 meperidine (From Demerol) AdvReac Hallucinati Verified 10/17/24 11:47 ng oxycodone (From Percocet) AdvReac Nausea Verified 10/17/24 11:47 propoxyphene AdvReac Nausea and Verified 10/17/24 11:47 Vomiting Review of Systems 2 Review of Systems: Gen.: Denies fevers or chills Eyes: Denies eye pain or visual change ENT: Denies congestion Respiratory: Denies shortness of breath or cough CV: Denies chest pain or palpitations GI: Denies abdominal pain nausea, emesis or diarrhea denies burning, urgency, frequency or hematuria Musculoskeletal: Denies back pain or muscle pain Neuro: Denies numbness, tingling, weakness or focal weakness Skin: Denies rash Except as documented, all other systems reviewed and negative [facility] Past Medical History Medical History Femur fracture, right Surgical screws Fracture, foot Right Metatarsal Anemia Undifferentiated connective tissue disease Depression with anxiety COPD (chronic obstructive pulmonary disease) NBA on CPAP Dementia History of ARDS Diastolic dysfunction History of nuclear stress test History of abnormal electrocardiogram Genevieve's thyroiditis Rosacea w/ ocular involvement Depression History of rectocele History of migraine headaches Spondylosis of cervical spine Arthralgia H/O antinuclear antibodies intermittent +ABRAM to 1:320 Vascular disorder seronegative collagen disorder History of squamous cell carcinoma History of staph infection Chronic left shoulder pain arthritis; possibly inflammatory Fracture, rib Aftercare following finger joint replacement surgery Thyroiditis Scoliosis History of left heart catheterization Tubal ligation evaluation Enlarged ureter Supplemental oxygen dependent Hypertension Fibromyalgia CHF (congestive heart failure) Surgical History Surgical History History of cataract extraction with lens replacement History of arthroplasty of knee Left History of removal of pigmented skin lesion Nose 2021 History of hysterectomy Total History of ERCP History of fusion of lumbar spine L2-L5 lumbar fusion Titanium History of laminectomy History of total knee replacement History of cholecystectomy 2002 History of tubal ligation History of D&C History of hip surgery right Total knee replacement status Previous back surgery S/P peroneal tendon repair History of surgical removal of ganglion cyst 1960 H/O hernia repair 1947 Family History Family History Unknown No problems noted. Mother Esophageal cancer Other Alcohol abuse Cancer Hypertension Social History Social History Social History: She lives with her and has 3 biologic children. She also has 1 adopted child. 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 She is a former smoker. Code status full code Smoking packs per day: 1.5 Smoking cigarettes per day: 30.0 Years smoked: 15 Smoking pack-years: 22.50 Smoking status: Former smoker Tobacco type: cigarettes Smoking end date: 11/23/81 Additional smoking assessment comments: quit 1982 Alcohol intake: current Alcohol use details: 0-1 per week Substance use: never Substance use type: does not use Do You Feel Safe in your Home?: Yes Lack of Transportation: No Lack of Food: Never True Current Housing: I Have Housing Concerned About Future Housing: No Difficulty Paying Gas/Electric Bills: No Difficulty Paying for Meds: No Currently Unemployed: No Education: Associate Degree Difficulty w/ Childcare or Family Care: No Living arrangements: with family Additional living arrangements comments: [facility]. Occupation/Education: retired Gender identity (if verbalized by the patient): Female Spiritual care concerns: No Agree to blood products: Yes Exam 2 Narrative: APPEARANCE: No acute distress, nontoxic, resting in bed EYES: EOMI HEENT: Normocephalic, atraumatic, mucous membranes mildly dry RESPIRATORY: No respiratory distress Clear to auscultation bilaterally with no rhonchi wheezing or rales. CARDIOVASCULAR: Regular rate and rhythm without murmurs rubs or gallops. ABDOMINAL: Soft, nontender, nondistended, no rebound or guarding MUSCULOSKELETAl: Moves all extremities. No clubbing, cyanosis or edema. NEURO: Awake and alert. Following commands, speech normal, no focal deficits SKIN:: Warm, dry. No rashes lesions or abrasions PSYCHIATRIC: AOx4 but confabulating Course Vital Signs Vital signs: Vital Signs Temperature 99.1 F 10/17/24 11:29 Pulse Rate 68 10/17/24 11:29 Respiratory Rate 18 10/17/24 11:29 Blood Pressure 182/75 H 10/17/24 11:29 Pulse Oximetry 99 10/17/24 11:29 Oxygen Delivery Room Air 10/17/24 11:29 Temperature 99.1 F 10/17/24 11:29 Pulse Rate 68 10/17/24 17:38 Respiratory Rate 18 10/17/24 17:38 Blood Pressure 180/71 H 10/17/24 17:58 Pulse Oximetry 97 10/17/24 17:38 Oxygen Delivery Nasal Cannula 10/17/24 11:45 Oxygen Flow Rate 2 10/17/24 11:45 MDM - Altered Mental Status MDM Narrative Medical decision making narrative: 79-year-old female present to the ED for altered mental status. Patient was AAO x4 but did have some evidence of confabulation and she was rather inappropriate with her speech. Heart and lungs were clear. UA showed no evidence of UTI. She was found to be hyponatremic to 126 which is lower than she has ever been. Suspect this is causing much of her metabolic encephalopathy. She was also found to have pneumonia for which she was given Rocephin and doxycycline. Patient will require admission for further evaluation treatment. Case was discussed with hospitalist who will admit the patient. Differential Diagnosis Differential diagnosis: Likely altered mental status, delirium, dementia, hypoglycemia, hyponatremia, sepsis and other (UTI, PNA) Medical Records Attestation: I reviewed the patient's medical records. Lab Data Attestation: I reviewed the patient's lab results. 10/17/24 12:15 10/17/24 12:15 Labs: Lab Results 10/17/24 Range/Units 12:15 WBC 5.7 (4.5-10.0) K/mm3 RBC 3.60 L (4.2-5.4) M/mm3 Hgb 10.9 L (12.0-15.0) g/dL Hct 33.1 L (37.0-47.0) % MCV 91.9 (80-100) fl MCH 30.3 (26-34) pg MCHC 32.9 (32-36) g/dl RDW 13.9 (11.5-14.5) % Plt Count 136 L (150-375) k/mm3 MPV 10.6 H (7.4-10.4) fl Immature Gran % (Auto) 0.7 H (0-0.5) % Neut % (Auto) 68.3 (45.5-73.1) % Lymph % (Auto) 11.8 L (18.3-44.2) % [place] % (Auto) 18.1 H (2.6-8.5) % Eos % (Auto) 0.7 (0-4.4) % Baso % (Auto) 0.4 (0.2-1.2) % Lymph # (Auto) 0.67 L (0.9-3.2) K/mm3 [place] # (Auto) 1.0 H (0.1-0.6) K/mm3 Eos # (Auto) 0.0 (0-0.3) K/mm3 Baso # (Auto) 0.0 (0.0-0.1) K/mm3 Abs Immat Gran (auto) 0.04 H (0.00-0.031) K/mm3 Absolute Neuts (auto) 3.9 (1.3-6.7) K/mm3 Absolute Nucleated RBC 0.000 (0.0-0.012) K/mm3 Nucleated RBC % 0.0 (0.0-0.2) % % Immature Plt Fraction 6.4 (0.9-11.2) % Sodium 126 L (137-145) mmol/L Potassium 4.6 (3.4-5.0) mmol/L Chloride 91 L (98-107) mmol/L Carbon Dioxide 28 (22-30) mmol/L Anion Gap 7 (4-12) mmol/L BUN 12 (7-17) mg/dL Creatinine 0.78 (0.7-1.0) mg/dL Estim Creat Clear Calc 53 ml/min Estimated GFR > 60 (59 - ) Glucose 100 (65-110) mg/dL Calcium 10.6 H (8.4-10.2) mg/dL Total Bilirubin 1.3 (0.2-1.3) mg/dL AST 35 (14-36) U/L ALT 21 (6-35) U/L Alkaline Phosphatase 82 (38-126) U/L Total Protein 7.7 (6.3-8.2) g/dL Albumin 4.8 (3.5-5.1) g/dL TSH (Reflex) 0.713 (0.465-4.68) uIU/mL Urine Color Yellow (Yellow) Urine Appearance Clear (Clear) Urine pH 6.5 (5.0-9.0) Ur Specific [place] 1.007 (1.001-1.035) Urine Protein Negative (Negative) mg/dL Urine Glucose (UA) Negative (Negative) mg/dL Urine Ketones Negative (Negative) mg/dL Ur Blood (Man) Negative (Negative) Urine Nitrate Negative (Negative) Urine Bilirubin Negative (Negative) Urine Urobilinogen 0.2 (<2.0) mg/dL Leukocyte Esterase Rfl Negative (Negative) ARMANDO/UL Urine Opiates Screen Negative (Negative) Urine Methadone Screen Negative (Negative) Ur Barbiturates Screen Negative (Negative) Ur Phencyclidine Scrn Negative (Negative) Ur Amphetamine Screen Negative (Negative) U Benzodiazepines Scrn Negative (Negative) Urine Cocaine Screen Negative (Negative) U Cannabinoids Screen Negative (Negative) Ethyl Alcohol < 10 (<10) mg/dL SARS-CoV-2 RNA (RT-PCR) Negative (Negative) Discharge Plan Discharge Clinical Impression: Acute metabolic encephalopathy, Acute hyponatremia Community acquired pneumonia Qualifiers: Laterality: unspecified laterality Qualified Code(s): J18.9 - Pneumonia, unspecified organism Patient Disposition: Still a Patient Condition: Stable
[2024-10-17] MEDS: SODIUM CHLORIDE 0.9% IV 1,000 ML 999 ML IV CONT (14:26)
--- NOTE | 2024-10-17 14:44 | P.HP_ITS ---
H&P: HPI History of Present Illness Date/Time: 10/17/24 14:44 Chief Complaint: Agitation Narrative: 79 y/o F with PMH of COPD, depression, anxiety, Genevieve's thyroiditis, migraines, seronegative collagen disorder, squamous cell carcinoma, supplemental oxygen dependent, hypertension, fibromyalgia and CHF presents here with agitation. The patient presents here from [facility] via EMS for further evaluation of agitation. The patient was initially disorientated earlier this week which was accompanied by agitation/aggression. She was evaluated on 10/12 for these symptoms and found to have a UTI. At that time the patient and her were comfortable with her going home and she was treated with Keflex. She is now returning today, 10/17, for re-evaluation. Initially the patient's reports she was improving but became combative again. Patient making statements that she would kill herself and her . Patient also attempted to hurt herself by scratching her wrist with her fingernail. When asked to further elaborate on these statements she reports she and her have not been intimate for some time and that was the reason she was citing suicide and divorce. Per , the patient has never displayed any of these behaviors prior to the UTI she experienced on Tuesday (10/12). She does have some mild dementia which he noted effects her short term memory, but has not caused any behavioral issues. Initial VS at presentation: 99.1? F, HR 60, R 18, 182/75, and 99% on 2L nasal cannula. ED workup showed: No leukocytosis, hemoglobin 10.9 (10.4 on 10/12), sodium 126 (133 on 10/12), TSH within normal limits, and UA unremarkable. UDS, ethanol, COVID negative. Head CT showed no acute intracranial hemorrhage, no mass effect, probable chronic ischemic white matter change, and cerebral atrophy appropriate for patient's age. CXR showed a left basilar airspace disease which may represent pneumonia or less likely asymmetric edema. Review of Systems Review of Systems: All systems reviewed & are unremarkable except as noted in HPI and below PMFSH Past Medical History Medical History Femur fracture, right Surgical screws Fracture, foot Right Metatarsal Anemia Undifferentiated connective tissue disease Depression with anxiety COPD (chronic obstructive pulmonary disease) NBA on CPAP Dementia History of ARDS Diastolic dysfunction History of nuclear stress test History of abnormal electrocardiogram Genevieve's thyroiditis Rosacea w/ ocular involvement Depression History of rectocele History of migraine headaches Spondylosis of cervical spine Arthralgia H/O antinuclear antibodies intermittent +ABRAM to 1:320 Vascular disorder seronegative collagen disorder History of squamous cell carcinoma History of staph infection Chronic left shoulder pain arthritis; possibly inflammatory Fracture, rib Aftercare following finger joint replacement surgery Thyroiditis Scoliosis History of left heart catheterization Tubal ligation evaluation Enlarged ureter Supplemental oxygen dependent Hypertension Fibromyalgia CHF (congestive heart failure) Surgical History Surgical History History of cataract extraction with lens replacement History of arthroplasty of knee Left History of removal of pigmented skin lesion Nose 2021 History of hysterectomy Total History of ERCP History of fusion of lumbar spine L2-L5 lumbar fusion Titanium History of laminectomy History of total knee replacement History of cholecystectomy 2002 History of tubal ligation History of D&C History of hip surgery right Total knee replacement status Previous back surgery S/P peroneal tendon repair History of surgical removal of ganglion cyst 1960 H/O hernia repair 1947 Family History Family History Unknown No problems noted. Mother Esophageal cancer Other Alcohol abuse Cancer Hypertension Social History Social History Social History: She lives with her and has 3 biologic children. She also has 1 adopted child. 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 She is a former smoker. Code status full code Smoking packs per day: 1 Smoking cigarettes per day: 20.0 Years smoked: 10 Smoking pack-years: 10.00 Smoking status: Former smoker Tobacco type: cigarettes Smoking end date: 11/23/81 Additional smoking assessment comments: quit 1982 Alcohol intake: current Alcohol use details: 0-1 per week Substance use: unknown Substance use type: does not use Other substance usage details: social occassions Do You Feel Safe in your Home?: Yes Lack of Transportation: No Lack of Food: Never True Current Housing: I Have Housing Concerned About Future Housing: No Difficulty Paying Gas/Electric Bills: No Difficulty Paying for Meds: No Currently Unemployed: No Education: Decline to Answer Difficulty w/ Childcare or Family Care: No Living arrangements: with family Additional living arrangements comments: [facility]. Occupation/Education: retired Gender identity (if verbalized by the patient): Female Spiritual care concerns: No Agree to blood products: Yes Meds Home Medications and Allergies Home Medications ?Medication ?Instructions ?Recorded ?Confirmed ?Type docusate sodium 100 mg capsule 100 mg PO BID 11/18/21 09/10/24 History diclofenac sodium 1 % topical gel 4 g topical QID PRN Pain 05/13/22 09/10/24 History (Arthritis Pain (diclofenac)) telmisartan 40 mg tablet 40 mg PO BID 05/13/22 09/10/24 History spironolactone 25 mg tablet 25 mg PO DAILY 06/15/22 09/10/24 History albuterol sulfate 2.5 mg/3 mL 2.5 mg inhalation Q6-8H 12/28/22 09/10/24 History (0.083 %) solution for nebulization naloxone 4 mg/actuation nasal spray 4 mg intranasal Q2-3M PRN opioid 03/22/23 09/10/24 Rx overdose #2 ea fluticasone fur. 200 mcg-umeclid 1 inh inhalation DAILY #180 ea 12/27/23 09/10/24 Rx 62.5 mcg-vilant 25 mcg inhalat.powder (Trelegy Ellipta) albuterol sulfate 90 mcg/actuation 1 - 2 puff inhalation Q4-6H PRN 02/21/24 09/10/24 Rx aerosol inhaler shortness of breath or wheezing #25.5 grams aspirin 81 mg capsule 81 mg PO DAILY 03/08/24 09/10/24 History cholecalciferol (vitamin D3) 50 2,000 unit PO DAILY 03/08/24 09/10/24 History mcg (2,000 unit) capsule omega 3 350 mg-dha 235 mg-epa 90 cap PO DAILY 03/08/24 09/10/24 History mg-fish oil 597 mg capsule,delay rel ([employer]-3) vibegron 75 mg tablet (Gemtesa) 75 mg PO DAILY 03/08/24 09/10/24 History vitamins A,C,R-vabu-maszse 2,148 2 tablet PO DAILY 03/08/24 09/10/24 History mcg-113 mg-45 mg-17.4 mg tablet (PreserVision AREDS) CPAP miscellaneous 05/21/24 09/10/24 History Pain Pump .Route 05/21/24 09/10/24 History bacitracin 500 unit/gram topical 1 applic topical BID 05/21/24 09/10/24 History ointment furosemide 20 mg tablet (Lasix) 20 mg PO QPM PRN 05/21/24 09/10/24 History guaifenesin 600 mg tablet, 600 mg PO Q12H PRN 05/21/24 09/10/24 History extended release 12 hr (Mucinex) loratadine 10 mg tablet (Claritin) 10 mg PO DAILY PRN 05/21/24 09/10/24 History oxygen Infiltration 05/21/24 09/10/24 History potassium chloride 10 mEq 10 meq PO DAILY PRN 05/21/24 09/10/24 History tablet,extended release (Klor-Con) lidocaine 5 % topical patch See Rx Instructions .Route 07/23/24 09/10/24 Rx .COMPLEX #90 patches amlodipine 10 mg tablet 10 mg PO DAILY #90 tabs 08/27/24 09/10/24 Rx donepezil 5 mg tablet 5 mg PO QHS #90 tabs 08/27/24 09/10/24 Rx fluoxetine 20 mg capsule 20 mg PO TID #270 caps 08/27/24 09/10/24 Rx gabapentin 300 mg capsule 300 mg PO TID #270 caps 08/27/24 09/10/24 Rx montelukast 10 mg tablet 10 mg PO DAILY #90 tabs 08/27/24 09/10/24 Rx pantoprazole 40 mg tablet,delayed 40 mg PO BID #180 tabs 08/27/24 09/10/24 Rx release pravastatin 40 mg tablet 40 mg PO DAILY #90 tabs 08/27/24 09/10/24 Rx levothyroxine 150 mcg tablet 150 mcg PO DAILY #90 tabs 08/28/24 09/10/24 Rx (Synthroid) nebivolol 10 mg tablet (Bystolic) 10 mg PO DAILY #90 tabs 08/28/24 09/10/24 Rx folic acid 1 mg tablet 1 mg PO DAILY #90 tabs 09/03/24 09/10/24 Rx cephalexin 500 mg capsule 500 mg PO Q8H 7 days #21 caps 10/12/24 Rx fluconazole 150 mg tablet 150 mg PO ONCE #1 tablet 10/12/24 Rx Allergies Allergy/AdvReac Type Severity Reaction Status Date / Time clindamycin Allergy Severe Chills Verified 10/17/24 11:47 diazepam Allergy Severe suicidal Verified 10/17/24 11:47 ideation levofloxacin (From Levaquin) Allergy Intermediate Itching Verified 10/17/24 11:47 cat dander Allergy Unknown Sinusitis Verified 10/17/24 11:47 dog dander Allergy Unknown Sinusitis Verified 10/17/24 11:47 feathers Allergy Unknown Sinusitis Verified 10/17/24 11:47 grass pollen Allergy Unknown Sinusitis Verified 10/17/24 11:47 house dust Allergy Unknown Sinusitis Verified 10/17/24 11:47 Rabbit Allergy Unknown Sinusitis Verified 10/17/24 11:47 tree and shrub pollen Allergy Unknown Sinusitis Verified 10/17/24 11:47 adhesive tape Allergy Redness of Verified 10/17/24 11:47 Skin silicone Allergy Unknown Verified 10/17/24 11:47 meperidine (From Demerol) AdvReac Hallucinati Verified 10/17/24 11:47 ng oxycodone (From Percocet) AdvReac Nausea Verified 10/17/24 11:47 propoxyphene AdvReac Nausea and Verified 10/17/24 11:47 Vomiting Vital Signs Vital Signs - 24 hr 10/17/24 11:29 10/17/24 11:45 10/17/24 13:00 Temperature 99.1 F Pulse Rate 68 68 Respiratory Rate 18 16 Blood Pressure 182/75 H 173/70 H Pulse Oximetry 99 97 99 Oxygen Delivery Room Air Nasal Cannula Oxygen Flow Rate 2 10/17/24 14:34 Temperature Pulse Rate 66 Respiratory Rate 16 Blood Pressure 172/69 H Pulse Oximetry 98 Oxygen Delivery Oxygen Flow Rate Exam Const: General: comfortable and no acute distress Other: , female, elderly, nontoxic appearance HENMT: Face/Nose/Sinus: Normal nares present Mouth: Yes moist mucous membranes Eyes: General: appearance normal, both eyes and all related structures Sclera: sclerae normal Pupils: Equal, round and reactive pupils present EOM: EOMs intact bilaterally Resp: Effort & Inspection: normal respiratory effort Auscultation: clear to auscultation bilaterally Other: Nasal cannula place, tolerating well Cardio: Rate: regular rate Rhythm: regular rhythm Other: S1-S2 present without murmur, rub, ectopy GI: Other: Abdomen soft, nondistended, nontender. Normoactive bowel sounds in all quadrants. Skin: General skin exam: normal color and no rashes or lesions noted Wounds: no wounds Neuro: Speech: normal speech Motor exam (neuro): 5/5 motor strength present throughout Sensory Exam: normal sensation Other: Alert orientated to self, place, year. Poor situational recall but able to provide majority of history. Extrem: General: normal to inspection Psych: Other: Patient demonstrating hypersexuality, reporting some level of suicidal ideation and homicidal ideation towards her . However during interview and clarification, the patient laughing and joking. Citing her lack of intimacy with her as the source of her frustration. Statement made laughing and followed with asking for a vibrator recommendation. Difficult to discern if patient has serious. Patient also demonstrating poor short-term recall and very easily agitated, but directable. Poor insight at present. H&P: Results Labs Labs: Short CBC 10/17/24 Range/Units 12:15 WBC 5.7 (4.5-10.0) K/mm3 Hgb 10.9 L (12.0-15.0) g/dL Hct 33.1 L (37.0-47.0) % Plt Count 136 L (150-375) k/mm3 BMP 10/17/24 12:15 Sodium 126 L Potassium 4.6 Chloride 91 L Carbon Dioxide 28 BUN 12 Creatinine 0.78 Glucose 100 Calcium 10.6 H Liver Function 10/17/24 Range/Units 12:15 Total Bilirubin 1.3 (0.2-1.3) mg/dL AST 35 (14-36) U/L ALT 21 (6-35) U/L Alkaline Phosphatase 82 (38-126) U/L Albumin 4.8 (3.5-5.1) g/dL Urine 10/17/24 Range/Units 12:15 Urine Color Yellow (Yellow) Urine Appearance Clear (Clear) Urine pH 6.5 (5.0-9.0) Ur Specific [employer] 1.007 (1.001-1.035) Urine Protein Negative (Negative) mg/dL Urine Glucose (UA) Negative (Negative) mg/dL Assessment and Plan Assessment and plan (1) Acute metabolic encephalopathy: Code(s): G93.41 - Metabolic encephalopathy Status: Acute Assessment and Plan: Patient able to answer orientation questions, however upon further investigation and during her interview she continuously demonstrated agitation and confusion. Initially precipitated by a UTI which has since been treated and UA currently appears unremarkable. Further workup in the emergency department revealed a new/acute hyponatremia and possible pneumonia. See sections below. Head CT negative. History of hypothyroidism, TSH within normal limits. Patient has additionally made suicidal and homicidal statements since becoming confused (however appear to be in a joking manner) that were given more weight due to patient attempting to self-harm by cutting her wrist with her fingernails, will place on suicide precautions until encephalopathy/confusion improved. Once patient is medically cleared, will need re-evaluation. Monitor confusion and agitation. (2) Acute hyponatremia: Code(s): E87.1 - Hypo-osmolality and hyponatremia Status: Acute Assessment and Plan: - Na 126 - check serum osmolality, urine osmolality, urine sodium, protein to creatinine ratio, urine creatinine - IV fluids: 1L bolus -> 100 mL/hr x1L - trend renal function - monitor neurological status Suspect drop in sodium secondary to poor p.o. intake as the patient has been intermittently confused and agitated over the last few days. No nausea, vomiting, diarrhea noted by patient. (3) Community acquired pneumonia: Qualifiers: Laterality: unspecified laterality Qualified Code(s): J18.9 - Pneumonia, unspecified organism Code(s): J18.9 - Pneumonia, unspecified organism Status: Acute Assessment and Plan: - CXR: Left basilar airspace disease may represent pneumonia or less likely asymmetric edema. - started on ceftriaxone and doxycycline IV on 10/17 - check MRSA PCR and sputum culture (if obtainable) - supportive care - currently on baseline supplemental O2 requirement - 2L NC (4) Hypothyroidism: Qualifiers: Hypothyroidism type: acquired Qualified Code(s): E03.9 - Hypothyroidism, unspecified Code(s): E03.9 - Hypothyroidism, unspecified Status: Acute Assessment and Plan: - TSH 0.713 - continue home Synthroid (5) Hypoxemic respiratory failure, chronic: Code(s): J96.11 - Chronic respiratory failure with hypoxia Status: Acute Assessment and Plan: - no worsening hypoxia. on baseline requirement, 2L NC. (6) Hypertension: Qualifiers: Hypertension type: primary hypertension Qualified Code(s): I10 - Essential (primary) hypertension Code(s): I10 - Essential (primary) hypertension Status: Chronic Assessment and Plan: - chronic, currently 180/71 - continue home medications - monitor (7) NBA on CPAP: Code(s): G47.33 - Obstructive sleep apnea (adult) (pediatric); Z99.89 - Dependence on other enabling machines and devices Status: Chronic Assessment and Plan: - continue home CPAP Plan Diet: Regular GI Prophylaxis: n/a DVT Prophylaxis: SCDs IV fluids: 1L bolus -> 100 mL/hr x1L Lines/Tubes: Peripheral IV Code Status: Full code Quality VTE Prophylaxis VTE prophylaxis: mechanical ordered Hospitalist MIPS Advance Care Plan I have confirmed that the patient's Advanced Care Plan is present, code status is documented, or surrogate decision maker is listed in patient medical record.: Yes Medication Reconciliation I have utilized all available resources to obtain, update and review the monet ents current medications (includes all prescriptions, OTC, herbals, cannabis, and nutritional supplements).: Yes
[2024-10-17] MEDS: cefTRIAXone 2 GM in SODIUM CHLORIDE 0.9% IV 100 ML 200 ML IVPB (15:07)
--- NOTE | 2024-10-17 15:08 | PC.NURSE ---
Had to wait for Blood cultures to be drawn before starting antibiotics
[2024-10-17] MEDS: DOXYCYCLINE IV 100 MG in SODIUM CHLORIDE 0.9% IV 100 ML IVPB (15:49)
[2024-10-17 20:28] LABS: Anion Gap 6 mmol/L (4-12); Blood Urea Nitrogen 9 mg/dL (7-17); Calcium 10.3 mg/dL (8.4-10.2); Carbon Dioxide 28 mmol/L (22-30); Chloride 97 mmol/L (98-107); Estimated CRCL calculation 53 ml/min; Estimated Glomerular Filt Rate > 60; Glucose 124 mg/dL (65-110); Potassium 4.4 mmol/L (3.4-5.0); Sodium 131 mmol/L (137-145)
[2024-10-17] MEDS: SODIUM CHLORIDE 0.9% IV 1,000 ML 100 ML IV CONT (20:35)
[2024-10-17 21:17] LABS: Total Protein Urine Random 14 mg/dL; Ur Ttl Prot Creatinine Ratio 0.81 mg/mg (0-0.20)
[2024-10-17 22:13] LABS: MRSA (PCR) NOT DETECTED (NOT DETECTE)
[2024-10-18] VITALS (8 sets, daily range): BP systolic 134–148; BP diastolic 58–74; PULSE 60–66; RESP 16–20; TEMP 36.2–36.8; O2SAT 94–100
[2024-10-18] MEDS: DOXYCYCLINE IV 100 MG in SODIUM CHLORIDE 0.9% IV 100 ML IVPB ×2 (03:05→16:58)
[2024-10-18 03:31] LABS: Hematocrit 29.5 % (37.0-47.0); Hemoglobin 9.5 g/dL (12.0-15.0); Immature Granulocyte Percent A 0.8 % (0-0.5); Immature Platelet Fraction Pct 5.7 % (0.9-11.2); Lymphocytes Absolute Auto 0.77 K/mm3 (0.9-3.2); Mean Corpuscular HGB Conc 32.2 g/dl (32-36); Mean Corpuscular Hemoglobin 30.4 pg (26-34); Mean Corpuscular Volume 94.6 fl (80-100); Nucleated Red Blood Cells Absolute Auto 0.000 K/mm3 (0.0-0.012); Nucleated Red Blood Cells Perc 0.0 % (0.0-0.2); Platelet Count Result 133 k/mm3 (150-375); Red Blood Count 3.12 M/mm3 (4.2-5.4); White Blood Count 4.8 K/mm3 (4.5-10.0)
[2024-10-18 03:44] LABS: Anion Gap 6 mmol/L (4-12); Blood Urea Nitrogen 10 mg/dL (7-17); Calcium 9.8 mg/dL (8.4-10.2); Carbon Dioxide 27 mmol/L (22-30); Chloride 98 mmol/L (98-107); Estimated CRCL calculation 57 ml/min; Estimated Glomerular Filt Rate > 60; Glucose 88 mg/dL (65-110); Potassium 4.1 mmol/L (3.4-5.0); Sodium 131 mmol/L (137-145)
[2024-10-18] MEDS: LEVOTHYROXINE SODIUM 150 MCG TABLET PO (07:17)
[2024-10-18] MEDS: FLUTICASONE/UMECLIDIN/VILANTER 200-62.5-25 MCG ELLIPTA 1 PUFF INHALATION (07:26)
[2024-10-18] MEDS: BENZONATATE 100 MG CAPSULE PO (09:42)
[2024-10-18] MEDS: PRAVASTATIN SODIUM 20 MG TABLET 40 MG PO (09:42)
[2024-10-18] MEDS: GABAPENTIN 300 MG CAPSULE PO ×3 (09:42→16:58)
[2024-10-18] MEDS: OMEGA 3 POLYUNSAT FATTY ACIDS 1 GM CAP PO (09:42)
[2024-10-18] MEDS: CHOLECALCIFEROL (VITAMIN D3) 25 MCG (1,000 UNITS) TABLET 50 MCG PO (09:42)
[2024-10-18] MEDS: guaiFENesin 12 HR 600 MG TABCR PO (09:42)
[2024-10-18] MEDS: NEBIVOLOL HCL 5 MG TABLET 10 MG PO (09:42)
[2024-10-18] MEDS: ASPIRIN 81 MG ENTERIC TABLET PO (09:43)
[2024-10-18] MEDS: MONTELUKAST SODIUM 10 MG TABLET PO (09:43)
[2024-10-18] MEDS: LIDOCAINE 5% PATCH 1 PATCH TOPICAL (09:43)
[2024-10-18] MEDS: FOLIC ACID 1 MG TABLET PO (09:43)
[2024-10-18] MEDS: PANTOPRAZOLE 40 MG TABLET PO ×2 (09:43→20:09)
[2024-10-18] MEDS: SPIRONOLACTONE 25 MG TABLET PO (09:43)
[2024-10-18] MEDS: DOCUSATE SODIUM 100 MG CAPSULE PO ×2 (09:43→20:09)
[2024-10-18] MEDS: TELMISARTAN 40 MG TABLET PO ×2 (09:44→20:09)
[2024-10-18] MEDS: CEFEPIME 2 GM in SODIUM CHLORIDE 0.9% IV 50 ML 100 ML IVPB ×2 (11:06→20:06)
--- NOTE | 2024-10-18 12:24 | WPDINTPN ---
Progress Note: A&P Assessment and Plan (1) Acute metabolic encephalopathy: Code(s): G93.41 - Metabolic encephalopathy Status: Acute Assessment and Plan: 10/17: Patient presented with agitation, will need to harm her and scratching arrest with her fingernail -could be related to infection, hyponatremia, -this morning patient is denying any suicidal or homicidal ideation, she is not wanting to harm herself. -She is aware that she has a UTI and is being treated with different kinds of antibiotics. -CT scan of the brain was negative on admission -TSH was within normal limits -patient is cleared of suicidal ideation or homicidal ideation at this time, also feels that the patient has improved significantly since admission, is not agitated/combative (2) Acute hyponatremia: Code(s): E87.1 - Hypo-osmolality and hyponatremia Status: Acute Assessment and Plan: - Na 126 on admission - Suspect drop in sodium secondary to poor p.o. intake as the patient has been intermittently confused and agitated over the last few days. No nausea, vomiting, diarrhea noted by patient. - check serum osmolality, urine osmolality, pending -status post IV fluids -sodium levels 131 this morning and improved -renal function within normal limits -neurological status has improved (3) Community acquired pneumonia: Qualifiers: Laterality: unspecified laterality Qualified Code(s): J18.9 - Pneumonia, unspecified organism Code(s): J18.9 - Pneumonia, unspecified organism Status: Acute Assessment and Plan: - CXR: Left basilar airspace disease may represent pneumonia or less likely asymmetric edema. - started on ceftriaxone and doxycycline IV on 10/17 - MRSA PCR is negative 10/17: Sputum cultures have been obtained and pending 10/17: Blood cultures obtained and pending - supportive care -currently on 2 L nasal cannula which she uses at home with adequate O2 sats -10/18: started on cefepime, discontinued ceftriaxone since patient grew Klebsiella aerogenes which was resistant to cefoxitin, continue doxycycline (4) Hypothyroidism: Qualifiers: Hypothyroidism type: acquired Qualified Code(s): E03.9 - Hypothyroidism, unspecified Code(s): E03.9 - Hypothyroidism, unspecified Status: Acute Assessment and Plan: - TSH 0.713 - continue home levothyroxine (5) Hypoxemic respiratory failure, chronic: Code(s): J96.11 - Chronic respiratory failure with hypoxia Status: Acute Assessment and Plan: - no worsening hypoxia. on baseline requirement, 2L NC. (6) Hypertension: Qualifiers: Hypertension type: primary hypertension Qualified Code(s): I10 - Essential (primary) hypertension Code(s): I10 - Essential (primary) hypertension Status: Chronic Assessment and Plan: - continue home medications - monitor (7) NBA on CPAP: Code(s): G47.33 - Obstructive sleep apnea (adult) (pediatric); Z99.89 - Dependence on other enabling machines and devices Status: Chronic Assessment and Plan: - continue home CPAP Plan Diet: Regular GI Prophylaxis: n/a DVT Prophylaxis: SCDs Lines/Tubes: Peripheral IV Code Status: Full code 10/18: Discussed with patient's and updated with patient's condition and plan of care. He states she has a very different person today. Back to baseline. Will discontinue suicidal so was a 2 precautions and transfer patient on a ICU to medical floor Subjective Date/time seen: 10/18/24 12:24 Interval history: 79 y/o F with PMH of COPD, depression, anxiety, Genevieve's thyroiditis, migraines, seronegative collagen disorder, squamous cell carcinoma, supplemental oxygen dependent, hypertension, fibromyalgia and CHF presents here with agitation. 10/18: Patient being seen for hospitalist team Patient is awake, alert, oriented x3, according the patient is much improved this morning. No tangential thoughts, denies any suicidal attempt or homicidal thoughts. Hemodynamically stable, adequate urine output. Afebrile. Patient did eat her breakfast Review of Systems Review of Systems: All systems reviewed & are unremarkable except as noted in HPI and below Exam Narrative: General: Awake, alert, in no acute distress HEENT:? Pupils equal and reactive, sclera is clear, moist oral mucosa Neck:? Supple Respiratory:? Clear to auscultation bilaterally Cardiac:? S1-S2 is normal, regular rate and rhythm Abdomen:? Soft, nontender, nondistended, normoactive bowel sounds Extremities:? No edema, palpable pedal pulses Neuro:? Patient awake, alert oriented x3, answers to questions appropriately and follows simple commands, is able to carry on a full conversation Skin:? No lesions noted Psych:? Normal mentation and affect Objective Data Vital Signs Vital Signs: Vital Signs - 24 hr 10/17/24 13:00 10/17/24 14:34 10/17/24 17:38 Temperature Pulse Rate 68 66 68 Respiratory Rate 16 16 18 Blood Pressure 173/70 H 172/69 H 238/112 H Pulse Oximetry 99 98 97 Oxygen Delivery Oxygen Flow Rate 10/17/24 17:58 10/17/24 19:45 10/17/24 20:00 Temperature Pulse Rate Respiratory Rate Blood Pressure 180/71 H Pulse Oximetry 96 97 Oxygen Delivery Nasal Cannula Nasal Cannula Oxygen Flow Rate 2 2 10/17/24 21:54 10/17/24 23:20 10/18/24 01:39 Temperature 97.6 F Pulse Rate 61 60 Respiratory Rate 16 Blood Pressure 137/64 Pulse Oximetry 97 97 Oxygen Delivery Autopap Autopap Oxygen Flow Rate 10/18/24 07:27 10/18/24 07:32 10/18/24 07:36 Temperature Pulse Rate 60 60 Respiratory Rate 16 18 Blood Pressure Pulse Oximetry 94 Oxygen Delivery Nasal Cannula Nasal Cannula Oxygen Flow Rate 2 2 10/18/24 07:36 Temperature 98.3 F Pulse Rate 62 Respiratory Rate 20 Blood Pressure 141/58 H Pulse Oximetry 94 Oxygen Delivery Oxygen Flow Rate Intake/Output Intake/Output: Intake & Output 10/15/24 10/16/24 10/17/24 10/18/24 23:59 23:59 23:59 23:59 Intake Total 1200 1500 Output Total 900 Balance 1200 600 Meds/Results Medications: Active Medications Generic Name Dose Route Start Last Admin Trade Name Freq PRN Reason Stop Dose Admin Acetaminophen 650 mg 10/17/24 19:31 Acetaminophen 325 Mg Tablet PO Q6H PRN Mild Pain (1-3) or Fever Albuterol 1 - 2 puff 10/17/24 23:38 Albuterol Sulfate (*Sp) Aerosol 1 Puff INHALATION Q4HRT PRN shortness of breath or wheezing Albuterol/Ipratropium 3 ml 10/17/24 19:29 Ipratropium 0.5 Mg/Albuterol Sulfate 2.5 Mg Ampul.Neb 3 Ml INHALATION Q6HRT PRN Shortness Of Breath Or Wheezing Amlodipine Besylate 10 mg 10/18/24 09:00 10/18/24 09:42 Amlodipine Besylate 10 Mg Tablet PO 10 mg DAILY VIN Administration Aspirin 81 mg 10/18/24 09:00 10/18/24 09:43 Aspirin 81 Mg Enteric Tablet PO 81 mg QAM [facility] Administration Bacitracin 1 applic 10/17/24 23:38 Bacitracin Ointment 15 Gm Tube TOPICAL BID PRN unknown Benzonatate 100 mg 10/17/24 19:23 10/18/24 09:42 Benzonatate 100 Mg Capsule PO 100 mg TID PRN Administration Cough Diclofenac Sodium 1 applic 10/17/24 23:38 Diclofenac Sodium 1% 100 Gm Gel (*Bkc) TOPICAL QID PRN Pain Docusate Sodium 100 mg 10/18/24 09:00 10/18/24 09:43 Docusate Sodium 100 Mg Capsule PO 100 mg Q12HR VIN Administration Donepezil HCl 5 mg 10/18/24 21:00 Donepezil Hcl 5 Mg Tablet PO QHS [facility] Fish Oil 1 gm 10/18/24 09:00 10/18/24 09:42 [place] 3 Polyunsat Fatty Acids 1 Gm Cap PO 1 gm QAM VIN Administration Fluoxetine HCl 20 mg 10/18/24 06:00 10/18/24 07:17 Fluoxetine Hcl 20 Mg Capsule PO 20 mg Q8HR VIN Administration Fluticasone/Umeclidinium/Vilanterol 1 puff 10/18/24 08:00 10/18/24 07:26 Fluticasone/Umeclidin/Vilanter 200-62.5-25 Mcg Ellipta INHALATION 1 puff DAILYRT VIN Administration Folic Acid 1 mg 10/18/24 09:00 10/18/24 09:43 Folic Acid 1 Mg Tablet PO 1 mg DAILY VIN Administration Furosemide 20 mg 10/17/24 23:38 Furosemide 20 Mg Tablet PO QPM PRN weight gain Gabapentin 300 mg 10/18/24 09:00 10/18/24 09:42 Gabapentin 300 Mg Capsule PO 300 mg TID VIN Administration Guaifenesin 600 mg 10/17/24 23:38 10/18/24 09:42 Guaifenesin 12 Hr 600 Mg Tabcr PO 600 mg Q12H PRN Administration congestion Doxycycline Hyclate 100 mg/ 100 mls @ 100 mls/hr 10/18/24 04:00 10/18/24 04:05 Sodium Chloride IVPB Infused Q12H [facility] Infusion Cefepime HCl 2 gm/ Sodium 50 mls @ 100 mls/hr 10/18/24 10:10 10/18/24 11:06 Chloride IVPB 100 mls/hr Q12HR VIN Administration Levothyroxine Sodium 150 mcg 10/18/24 06:30 10/18/24 07:17 Levothyroxine Sodium 150 Mcg Tablet PO 150 mcg DAILY@0630 [facility] Administration Lidocaine 1 patch 10/18/24 09:00 10/18/24 09:43 Lidocaine 5% Patch TOPICAL 1 patch DAILY [facility]IN Administration Loratadine 10 mg 10/17/24 23:38 Loratadine 10 Mg Tablet PO DAILY PRN allergy symptoms Miscellaneous Information 1 each 10/18/24 00:01 Naloxone 4 Mg/Actuation [place],Non-Aerosol Nonform, Switch To Standard Protocol Naloxone Or XX 11/17/24 00:00 CLARIFY VIN Miscellaneous Information 1 each 10/18/24 00:01 Vibegron [Gemtesa] 75 Mg Tablet Is Nonform, Can Patient Bring From Home? XX 11/17/24 00:00 CLARIFY VIN Montelukast Sodium 10 mg 10/18/24 09:00 10/18/24 09:43 Montelukast Sodium 10 Mg Tablet PO 10 mg DAILY VIN Administration Nebivolol 10 mg 10/18/24 09:00 10/18/24 09:42 Nebivolol Hcl 5 Mg Tablet PO 10 mg DAILY VIN Administration Non-Formulary Medication 4 mg 10/17/24 23:38 Naloxone NASAL Q2-3M PRN opioid overdose Non-Formulary Medication 75 mg 10/18/24 09:00 Vibegron [Gemtesa] PO 11/17/24 08:59 DAILY [facility] Ondansetron HCl 4 mg 10/17/24 19:31 Ondansetron Hcl Odt 4 Mg Tablet PO Q6H PRN Nausea And Vomiting Pantoprazole Sodium 40 mg 10/18/24 09:00 10/18/24 09:43 Pantoprazole 40 Mg Tablet PO 40 mg Q12HR [facility]IN Administration Polyethylene Glycol 17 gm 10/17/24 19:31 Polyethylene Glycol 3350 17 Gm Powd.Pack PO QAM PRN Constipation Potassium Chloride 10 meq 10/17/24 23:38 Potassium Chloride 10 Meq Er Tablet PO DAILY PRN with lasix Pravastatin Sodium 40 mg 10/18/24 09:00 10/18/24 09:42 Pravastatin Sodium 20 Mg Tablet PO 40 mg DAILY VIN Administration Spironolactone 25 mg 10/18/24 09:00 10/18/24 09:43 Spironolactone 25 Mg Tablet PO 25 mg DAILY VIN Administration Telmisartan 40 mg 10/18/24 09:00 10/18/24 09:44 Telmisartan 40 Mg Tablet PO 40 mg Q12HR [facility]IN Administration Vitamin D 50 mcg 10/18/24 09:00 10/18/24 09:42 Cholecalciferol (Vitamin D3) 25 Mcg (1,000 Units) Tablet PO 50 mcg DAILY VIN Administration Radiology Results: ITS Impressions Head CT 10/17/24 12:34 IMPRESSION: 1. No acute intracranial hemorrhage. No mass effect. 2. Probable chronic ischemic white matter change. 3. Cerebral atrophy appropriate for the patient's age. Chest X-Ray 10/17/24 12:46 Impression: 1: Left basilar airspace disease may represent pneumonia or less likely asymmetric edema. Labs Labs: Laboratory Results - last 24 hr 10/17/24 10/17/24 10/17/24 12:15 14:31 20:02 WBC 5.7 RBC 3.60 L Hgb 10.9 L Hct 33.1 L MCV 91.9 MCH 30.3 MCHC 32.9 RDW 13.9 Plt Count 136 L MPV 10.6 H Immature Gran % (Auto) 0.7 H Neut % (Auto) 68.3 Lymph % (Auto) 11.8 L [place] % (Auto) 18.1 H Eos % (Auto) 0.7 Baso % (Auto) 0.4 Lymph # (Auto) 0.67 L [place] # (Auto) 1.0 H Eos # (Auto) 0.0 Baso # (Auto) 0.0 Abs Immat Gran (auto) 0.04 H Absolute Neuts (auto) 3.9 Absolute Nucleated RBC 0.000 Nucleated RBC % 0.0 % Immature Plt Fraction 6.4 Sodium 126 L 131 L Potassium 4.6 4.4 Chloride 91 L 97 L Carbon Dioxide 28 28 Anion Gap 7 6 BUN 12 9 Creatinine 0.78 0.78 Estim Creat Clear Calc 53 53 Estimated GFR > 60 > 60 Glucose 100 124 H Lactic Acid 0.7 Calcium 10.6 H 10.3 H Total Bilirubin 1.3 AST 35 ALT 21 Alkaline Phosphatase 82 Total Protein 7.7 Albumin 4.8 TSH (Reflex) 0.713 Urine Color Yellow Urine Appearance Clear Urine pH 6.5 Ur Specific [place] 1.007 Urine Protein Negative Urine Glucose (UA) Negative Urine Ketones Negative Ur Blood (Man) Negative Urine Nitrate Negative Urine Bilirubin Negative Urine Urobilinogen 0.2 Leukocyte Esterase Rfl Negative U Random Total Protein Ur Random Sodium Urine Creatinine Protein/Creat Ratio 2 Nasal MRSA (PCR) Urine Opiates Screen Negative Urine Methadone Screen Negative Ur Barbiturates Screen Negative Ur Phencyclidine Scrn Negative Ur Amphetamine Screen Negative U Benzodiazepines Scrn Negative Urine Cocaine Screen Negative U Cannabinoids Screen Negative Ethyl Alcohol < 10 SARS-CoV-2 RNA (RT-PCR) Negative 10/17/24 10/17/24 10/18/24 20:46 20:46 03:23 WBC 4.8 RBC 3.12 L Hgb 9.5 L Hct 29.5 L MCV 94.6 MCH 30.4 MCHC 32.2 RDW 14.1 Plt Count 133 L MPV 10.7 H Immature Gran % (Auto) 0.8 H Neut % (Auto) 51.2 Lymph % (Auto) 15.9 L [place] % (Auto) 31.1 H Eos % (Auto) 0.6 Baso % (Auto) 0.4 Lymph # (Auto) 0.77 L [place] # (Auto) 1.5 H Eos # (Auto) 0.0 Baso # (Auto) 0.0 Abs Immat Gran (auto) 0.04 H Absolute Neuts (auto) 2.5 Absolute Nucleated RBC 0.000 Nucleated RBC % 0.0 % Immature Plt Fraction 5.7 Sodium 131 L Potassium 4.1 Chloride 98 Carbon Dioxide 27 Anion Gap 6 BUN 10 Creatinine 0.72 Estim Creat Clear Calc 57 Estimated GFR > 60 Glucose 88 Lactic Acid Calcium 9.8 Total Bilirubin AST ALT Alkaline Phosphatase Total Protein Albumin TSH (Reflex) Urine Color Urine Appearance Urine pH Ur Specific [place] Urine Protein Urine Glucose (UA) Urine Ketones Ur Blood (Man) Urine Nitrate Urine Bilirubin Urine Urobilinogen Leukocyte Esterase Rfl U Random Total Protein 14 Ur Random Sodium 60 Urine Creatinine 17.3 Cancelled Protein/Creat Ratio 2 0.81 H Nasal MRSA (PCR) Not detected Urine Opiates Screen Urine Methadone Screen Ur Barbiturates Screen Ur Phencyclidine Scrn Ur Amphetamine Screen U Benzodiazepines Scrn Urine Cocaine Screen U Cannabinoids Screen Ethyl Alcohol SARS-CoV-2 RNA (RT-PCR) Quality VTE Prophylaxis VTE prophylaxis: mechanical ordered
--- NOTE | 2024-10-18 14:27 | PC.NURSE ---
Report called to 2nd medical RN, Severiano. Patient and belongings moved to room 242. Attepmted to call and notify of trnasfer, no answer, I left a voicemail.
[2024-10-18] MEDS: DONEPEZIL HCL 5 MG TABLET PO (20:09)
[2024-10-19] MEDS: DOXYCYCLINE IV 100 MG in SODIUM CHLORIDE 0.9% IV 100 ML IVPB ×2 (04:00→16:36)
--- NOTE | 2024-10-19 04:57 | PC.NURSE ---
COMPUTER DOWN TIME FROM [id number]
[2024-10-19 06:00] VITALS: BP 128/71; PULSE 60; RESP 18; TEMP 36.4; O2SAT 100
[2024-10-19] MEDS: LEVOTHYROXINE SODIUM 150 MCG TABLET PO (06:02)
[2024-10-19 08:00] VITALS: BP 130/68; PULSE 60; RESP 17; TEMP 36.4; O2SAT 100
[2024-10-19 08:03] VITALS: PULSE 64; RESP 16
[2024-10-19] MEDS: FLUTICASONE/UMECLIDIN/VILANTER 200-62.5-25 MCG ELLIPTA 1 PUFF INHALATION (08:03)
[2024-10-19] MEDS: CEFEPIME 2 GM in SODIUM CHLORIDE 0.9% IV 50 ML 100 ML IVPB ×2 (08:39→20:50)
[2024-10-19 08:40] VITALS: PULSE 70
[2024-10-19] MEDS: CHOLECALCIFEROL (VITAMIN D3) 25 MCG (1,000 UNITS) TABLET 50 MCG PO (08:40)
[2024-10-19] MEDS: NEBIVOLOL HCL 5 MG TABLET 10 MG PO (08:40)
[2024-10-19] MEDS: FOLIC ACID 1 MG TABLET PO (08:40)
[2024-10-19] MEDS: PANTOPRAZOLE 40 MG TABLET PO ×2 (08:40→20:51)
[2024-10-19] MEDS: TELMISARTAN 40 MG TABLET PO ×2 (08:40→20:51)
[2024-10-19] MEDS: GABAPENTIN 300 MG CAPSULE PO ×3 (08:40→16:36)
[2024-10-19] MEDS: PRAVASTATIN SODIUM 20 MG TABLET 40 MG PO (08:40)
[2024-10-19] MEDS: SPIRONOLACTONE 25 MG TABLET PO (08:40)
[2024-10-19] MEDS: DOCUSATE SODIUM 100 MG CAPSULE PO ×2 (08:41→20:51)
[2024-10-19] MEDS: ASPIRIN 81 MG ENTERIC TABLET PO (08:41)
[2024-10-19] MEDS: MONTELUKAST SODIUM 10 MG TABLET PO (08:41)
[2024-10-19] MEDS: OMEGA 3 POLYUNSAT FATTY ACIDS 1 GM CAP PO (08:41)
--- NOTE | 2024-10-19 11:13 | PCSTNOTE ---
Please refer to the Bedside Swallow Evaluation (BSE) in the EMR. Please note, silent aspiration cannot be ruled out at bedside. The above very confused 79-year-old was seen by Speech Therapy for a BSE; PMH is significant for COPD, depression, anxiety, Genevieve's thyroiditis, migraines, seronegative collagen disorder, squamous cell carcinoma, supplemental oxygen dependent, hypertension, fibromyalgia and CHF. Pt's baseline is mild dementia with mild memory loss; pt presented to the ED with agitation and was admitted with a dx of UTI. Pt's spouse was not present. She is fixated & perseverating on her spouse and being on a 2-day vacation from him & wants to talk to a psychiatrist. Per pts RN, she coughed excessively with meds this am, however she adamantly refuses that she has any difficulty with swallowing. Pt followed directions for completion of an oral motor assessment which did not reveal any labial or lingual weakness or reduced ROM. Her dentition is good and vocal quality is clear. She was presented with 3 & 5 ml of thin liquids via a spoon, multiple tsp amounts of applesauce, & cup sips of water, but she refused solid trials and drinking water via a straw. The oral stage appeared to be intact with no leakage or pocketing. The swallow reflex appeared timely, and laryngeal elevation was adequate. A dry coughing episode occurred after test trials. At the bedside, it cannot be determined if the cough was related to aspiration or incidental.? An MBS would be needed to definitely rule out aspiration but pt adamantly refused stating that it would be a waste of time and money. Impression: ST cannot definitively rule out aspiration at the bedside; pt exhibited only a single a dry cough episode after test trials but her RN stated she coughed with her meds this am. ST is deferring diet recommendation to her provider. Pt is not compliant and not a candidate for therapy at this time. ST spoke with Dr Cadena and RN and will leave pt on her current diet, watch closely and revisit possibility of an MBS if her level of cooperation improves.
--- NOTE | 2024-10-19 14:17 | P.PNIM_ITS ---
Progress Note: A&P Assessment and Plan (1) Acute metabolic encephalopathy: Code(s): G93.41 - Metabolic encephalopathy Status: Acute Assessment and Plan: Patient able to answer orientation questions, however upon further investigation and during her interview she continuously demonstrated agitation and confusion. Initially precipitated by a UTI which has since been treated and UA currently appears unremarkable. Further workup in the emergency department revealed a new/acute hyponatremia and possible pneumonia. See sections below. Head CT negative. History of hypothyroidism, TSH within normal limits. Patient has additionally made suicidal and homicidal statements since becoming confused (however appear to be in a joking manner) that were given more weight due to patient attempting to self-harm by cutting her wrist with her fingernails, will place on suicide precautions until encephalopathy/confusion improved. Once patient is medically cleared, will need re-evaluation. Monitor confusion and agitation. (2) Acute hyponatremia: Code(s): E87.1 - Hypo-osmolality and hyponatremia Status: Acute Assessment and Plan: - Na 126 - check serum osmolality, urine osmolality, urine sodium, protein to creatinine ratio, urine creatinine - IV fluids: 1L bolus -> 100 mL/hr x1L - trend renal function - monitor neurological status Suspect drop in sodium secondary to poor p.o. intake as the patient has been intermittently confused and agitated over the last few days. No nausea, vomiting, diarrhea noted by patient. (3) Community acquired pneumonia: Qualifiers: Laterality: unspecified laterality Qualified Code(s): J18.9 - Pneumonia, unspecified organism Code(s): J18.9 - Pneumonia, unspecified organism Status: Acute Assessment and Plan: - CXR: Left basilar airspace disease may represent pneumonia or less likely asymmetric edema. - started on ceftriaxone and doxycycline IV on 10/17 - check MRSA PCR and sputum culture (if obtainable) - supportive care - currently on baseline supplemental O2 requirement - 2L NC (4) Hypothyroidism: Qualifiers: Hypothyroidism type: acquired Qualified Code(s): E03.9 - Hypothyroidism, unspecified Code(s): E03.9 - Hypothyroidism, unspecified Status: Acute Assessment and Plan: - TSH 0.713 - continue home Synthroid (5) Hypoxemic respiratory failure, chronic: Code(s): J96.11 - Chronic respiratory failure with hypoxia Status: Acute Assessment and Plan: - no worsening hypoxia. on baseline requirement, 2L NC. (6) Hypertension: Qualifiers: Hypertension type: primary hypertension Qualified Code(s): I10 - Essential (primary) hypertension Code(s): I10 - Essential (primary) hypertension Status: Chronic Assessment and Plan: - chronic, currently 180/71 - continue home medications - monitor (7) NBA on CPAP: Code(s): G47.33 - Obstructive sleep apnea (adult) (pediatric); Z99.89 - Dependence on other enabling machines and devices Status: Chronic Assessment and Plan: - continue home CPAP Plan Initially patient was admitted into ICU with concern for suicide, patient was evaluated and cleared that patient does not have intention to harm herself or anyone else, patient remains somewhat agitated suspect due to possibly hyponatremia and UTI, her sodium levels are trending up close to her baseline, and her urine is klebs aerogenes and being treated with cefepime, her is present in the room, stats patient is little better not as agitated, will CPM, once more stable, will have psychiatric consult the patient and further recommendation to follow. Diet: Regular GI Prophylaxis: n/a DVT Prophylaxis: SCDs IV fluids: 1L bolus -> 100 mL/hr x1L Lines/Tubes: Peripheral IV Code Status: Full code Subjective Date/time seen: 10/19/24 14:17 Interval history: Chief Complaint: Agitation H&P-Narrative: 79 y/o F with PMH of COPD, depression, anxiety, Genevieve's thyroiditis, migraines, seronegative collagen disorder, squamous cell carcinoma, supplemental oxygen dependent, hypertension, fibromyalgia and CHF presents here with agitation. The patient presents here from [facility] via EMS for further evaluation of agitation. The patient was initially disorientated earlier this week which was accompanied by agitation/aggression. She was evaluated on 10/12 for these symptoms and found to have a UTI. At that time the patient and her were comfortable with her going home and she was treated with Keflex. She is now returning today, 10/17, for re-evaluation. Initially the patient's reports she was improving but became combative again. Patient making statements that she would kill herself and her . Patient also attempted to hurt herself by scratching her wrist with her fingernail. When asked to further elaborate on these statements she reports she and her have not been intimate for some time and that was the reason she was citing suicide and divorce. Per , the patient has never displayed any of these behaviors prior to the UTI she experienced on Tuesday (10/12). She does have some mild dementia which he noted effects her short term memory, but has not caused any behavioral issues. Initial VS at presentation: 99.1? F, HR 60, R 18, 182/75, and 99% on 2L nasal cannula. ED workup showed: No leukocytosis, hemoglobin 10.9 (10.4 on 10/12), sodium 126 (133 on 10/12), TSH within normal limits, and UA unremarkable. UDS, ethanol, COVID negative. Head CT showed no acute intracranial hemorrhage, no mass effect, probable chronic ischemic white matter change, and cerebral atrophy appropriate for patient's age. CXR showed a left basilar airspace disease which may represent pneumonia or less likely asymmetric edema. Initially patient was admitted into ICU with concern for suicide, patient was evaluated and cleared that patient does not have intention to harm herself or anyone else, patient remains somewhat agitated suspect due to possibly hyponatremia and UTI, her sodium levels are trending up close to her baseline, and her urine is klebs aerogenes and being treated with cefepime, her is present in the room, stats patient is little better not as agitated, will CPM, once more stable, will have psychiatric consult the patient and further recommendation to follow. Review of Systems Review of Systems: All systems reviewed & are unremarkable except as noted in HPI and below Exam Narrative: Patient is comfortable, NAD HEENT: eyes are clear and none icteric LUNGS:CTA HEART: RR S1S2 ABD: BS+, Soft and nontender Lower extremities: no edema SKIN: nonjaundiced Neuro: grossly intact. Objective Data Vital Signs Vital Signs: Vital Signs - 24 hr 10/18/24 15:15 10/18/24 16:00 10/18/24 20:00 Temperature 36.4 C 36.5 C Pulse Rate 61 63 Respiratory Rate 16 17 Blood Pressure 148/58 H 144/60 H Pulse Oximetry 100 100 100 Oxygen Delivery Nasal Cannula Oxygen Flow Rate 2 10/18/24 22:00 10/18/24 22:45 10/18/24 22:45 Temperature 36.2 C L Pulse Rate 63 66 66 Respiratory Rate 18 16 Blood Pressure 134/74 Pulse Oximetry 98 95 95 Oxygen Delivery Autopap Autopap Oxygen Flow Rate 2 10/19/24 06:00 10/19/24 08:00 10/19/24 08:03 Temperature 36.4 C L 36.4 C Pulse Rate 60 60 64 Respiratory Rate 18 17 16 Blood Pressure 128/71 130/68 Pulse Oximetry 100 100 Oxygen Delivery Oxygen Flow Rate 10/19/24 08:40 Temperature Pulse Rate 70 Respiratory Rate Blood Pressure Pulse Oximetry Oxygen Delivery Oxygen Flow Rate Intake/Output Intake/Output: Intake & Output 10/16/24 10/17/24 10/18/24 10/19/24 23:59 23:59 23:59 23:59 Intake Total 1200 2290 590 Output Total 1900 1200 Balance 1200 390 -610 Meds/Results Medications: Active Medications Generic Name Dose Route Start Last Admin Trade Name Freq PRN Reason Stop Dose Admin Acetaminophen 650 mg 10/17/24 19:31 Acetaminophen 325 Mg Tablet PO Q6H PRN Mild Pain (1-3) or Fever Albuterol 1 - 2 puff 10/17/24 23:38 Albuterol Sulfate (*Sp) Aerosol 1 Puff INHALATION Q4HRT PRN shortness of breath or wheezing Albuterol/Ipratropium 3 ml 10/17/24 19:29 Ipratropium 0.5 Mg/Albuterol Sulfate 2.5 Mg Ampul.Neb 3 Ml INHALATION Q6HRT PRN Shortness Of Breath Or Wheezing Amlodipine Besylate 10 mg 10/18/24 09:00 10/19/24 08:40 Amlodipine Besylate 10 Mg Tablet PO 10 mg DAILY VIN Administration Aspirin 81 mg 10/18/24 09:00 10/19/24 08:41 Aspirin 81 Mg Enteric Tablet PO 81 mg QAM VIN Administration Bacitracin 1 applic 10/17/24 23:38 Bacitracin Ointment 15 Gm Tube TOPICAL BID PRN unknown Benzonatate 100 mg 10/17/24 19:23 10/18/24 09:42 Benzonatate 100 Mg Capsule PO 100 mg TID PRN Administration Cough Diclofenac Sodium 1 applic 10/17/24 23:38 Diclofenac Sodium 1% 100 Gm Gel (*Bkc) TOPICAL QID PRN Pain Docusate Sodium 100 mg 10/18/24 09:00 10/19/24 08:41 Docusate Sodium 100 Mg Capsule PO 100 mg Q12HR VIN Administration Donepezil HCl 5 mg 10/18/24 21:00 10/18/24 20:09 Donepezil Hcl 5 Mg Tablet PO 5 mg QHS VIN Administration Fish Oil 1 gm 10/18/24 09:00 10/19/24 08:41 [place] 3 Polyunsat Fatty Acids 1 Gm Cap PO 1 gm QAM VIN Administration Fluoxetine HCl 20 mg 10/18/24 06:00 10/19/24 14:03 Fluoxetine Hcl 20 Mg Capsule PO 20 mg Q8HR VIN Administration Fluticasone/Umeclidinium/Vilanterol 1 puff 10/18/24 08:00 10/19/24 08:03 Fluticasone/Umeclidin/Vilanter 200-62.5-25 Mcg Ellipta INHALATION 1 puff DAILYRT VIN Administration Folic Acid 1 mg 10/18/24 09:00 10/19/24 08:40 Folic Acid 1 Mg Tablet PO 1 mg DAILY VIN Administration Furosemide 20 mg 10/17/24 23:38 Furosemide 20 Mg Tablet PO QPM PRN weight gain Gabapentin 300 mg 10/18/24 09:00 10/19/24 14:03 Gabapentin 300 Mg Capsule PO 300 mg TID VIN Administration Guaifenesin 600 mg 10/17/24 23:38 10/18/24 09:42 Guaifenesin 12 Hr 600 Mg Tabcr PO 600 mg Q12H PRN Administration congestion Doxycycline Hyclate 100 mg/ 100 mls @ 100 mls/hr 10/18/24 04:00 10/19/24 04:57 Sodium Chloride IVPB Infused Q12H VIN Infusion Cefepime HCl 2 gm/ Sodium 50 mls @ 100 mls/hr 10/18/24 10:10 10/19/24 09:09 Chloride IVPB Infused Q12HR [facility] Infusion Levothyroxine Sodium 150 mcg 10/18/24 06:30 10/19/24 06:02 Levothyroxine Sodium 150 Mcg Tablet PO 150 mcg DAILY@0630 VIN Administration Lidocaine 2 patch 10/19/24 21:00 Lidocaine 5% Patch TOPICAL HS VIN Loratadine 10 mg 10/17/24 23:38 Loratadine 10 Mg Tablet PO DAILY PRN allergy symptoms Montelukast Sodium 10 mg 10/18/24 09:00 10/19/24 08:41 Montelukast Sodium 10 Mg Tablet PO 10 mg DAILY VIN Administration Naloxone HCl 0.1 mg 10/19/24 13:20 Naloxone Hcl 0.4 Mg/Ml Vial IV PUSH Q5MIN PRN Opioid Reversal Nebivolol 10 mg 10/18/24 09:00 10/19/24 08:40 Nebivolol Hcl 5 Mg Tablet PO 10 mg DAILY VIN Administration Ondansetron HCl 4 mg 10/17/24 19:31 Ondansetron Hcl Odt 4 Mg Tablet PO Q6H PRN Nausea And Vomiting Pantoprazole Sodium 40 mg 10/18/24 09:00 10/19/24 08:40 Pantoprazole 40 Mg Tablet PO 40 mg Q12HR VIN Administration Polyethylene Glycol 17 gm 10/17/24 19:31 Polyethylene Glycol 3350 17 Gm Powd.Pack PO QAM PRN Constipation Potassium Chloride 10 meq 10/17/24 23:38 Potassium Chloride 10 Meq Er Tablet PO DAILY PRN with lasix Pravastatin Sodium 40 mg 10/18/24 09:00 10/19/24 08:40 Pravastatin Sodium 20 Mg Tablet PO 40 mg DAILY VIN Administration Spironolactone 25 mg 10/18/24 09:00 10/19/24 08:40 Spironolactone 25 Mg Tablet PO 25 mg DAILY VIN Administration Telmisartan 40 mg 10/18/24 09:00 10/19/24 08:40 Telmisartan 40 Mg Tablet PO 40 mg Q12HR VIN Administration Vitamin D 50 mcg 10/18/24 09:00 10/19/24 08:40 Cholecalciferol (Vitamin D3) 25 Mcg (1,000 Units) Tablet PO 50 mcg DAILY VIN Administration Radiology Results: ITS Impressions Head CT 10/17/24 12:34 IMPRESSION: 1. No acute intracranial hemorrhage. No mass effect. 2. Probable chronic ischemic white matter change. 3. Cerebral atrophy appropriate for the patient's age. Chest X-Ray 10/17/24 12:46 Impression: 1: Left basilar airspace disease may represent pneumonia or less likely asymmetric edema. Quality VTE Prophylaxis VTE prophylaxis: mechanical ordered
[2024-10-19 16:00] VITALS: BP 132/74; PULSE 62; RESP 16; TEMP 36.4; O2SAT 100
[2024-10-19] MEDS: DONEPEZIL HCL 5 MG TABLET PO (20:51)
[2024-10-19] MEDS: LIDOCAINE 5% PATCH 2 PATCH TOPICAL (20:51)
[2024-10-19 22:40] VITALS: BP 129/71; PULSE 61; RESP 18; TEMP 36.6; O2SAT 99
[2024-10-19 23:07] LABS: Osmolality, Urine 183 mOsmol/kg (.)
[2024-10-20] VITALS (8 sets, daily range): BP systolic 122–143; BP diastolic 65–72; PULSE 64–93; RESP 16–18; TEMP 36.4–36.6; O2SAT 97–100
[2024-10-20] MEDS: DOXYCYCLINE IV 100 MG in SODIUM CHLORIDE 0.9% IV 100 ML IVPB ×2 (03:45→17:32)
[2024-10-20] MEDS: LEVOTHYROXINE SODIUM 150 MCG TABLET PO (06:23)
[2024-10-20] MEDS: IPRATROPIUM 0.5 MG/ALBUTEROL SULFATE 2.5 MG AMPUL.NEB 3 ML INHALATION (07:36)
--- NOTE | 2024-10-20 12:37 | P.PNIM_ITS ---
Progress Note: A&P Assessment and Plan (1) Acute metabolic encephalopathy: Code(s): G93.41 - Metabolic encephalopathy Status: Acute Assessment and Plan: Patient able to answer orientation questions, however upon further investigation and during her interview she continuously demonstrated agitation and confusion. Initially precipitated by a UTI which has since been treated and UA currently appears unremarkable. Further workup in the emergency department revealed a new/acute hyponatremia and possible pneumonia. See sections below. Head CT negative. History of hypothyroidism, TSH within normal limits. Patient has additionally made suicidal and homicidal statements since becoming confused (however appear to be in a joking manner) that were given more weight due to patient attempting to self-harm by cutting her wrist with her fingernails, will place on suicide precautions until encephalopathy/confusion improved. Once patient is medically cleared, will need re-evaluation. Monitor confusion and agitation. (2) Acute hyponatremia: Code(s): E87.1 - Hypo-osmolality and hyponatremia Status: Acute Assessment and Plan: - Na 126 - check serum osmolality, urine osmolality, urine sodium, protein to creatinine ratio, urine creatinine - IV fluids: 1L bolus -> 100 mL/hr x1L - trend renal function - monitor neurological status Suspect drop in sodium secondary to poor p.o. intake as the patient has been intermittently confused and agitated over the last few days. No nausea, vomiting, diarrhea noted by patient. (3) Community acquired pneumonia: Qualifiers: Laterality: unspecified laterality Qualified Code(s): J18.9 - Pneumonia, unspecified organism Code(s): J18.9 - Pneumonia, unspecified organism Status: Acute Assessment and Plan: - CXR: Left basilar airspace disease may represent pneumonia or less likely asymmetric edema. - started on ceftriaxone and doxycycline IV on 10/17 - check MRSA PCR and sputum culture (if obtainable) - supportive care - currently on baseline supplemental O2 requirement - 2L NC (4) Hypothyroidism: Qualifiers: Hypothyroidism type: acquired Qualified Code(s): E03.9 - Hypothyroidism, unspecified Code(s): E03.9 - Hypothyroidism, unspecified Status: Acute Assessment and Plan: - TSH 0.713 - continue home Synthroid (5) Hypoxemic respiratory failure, chronic: Code(s): J96.11 - Chronic respiratory failure with hypoxia Status: Acute Assessment and Plan: - no worsening hypoxia. on baseline requirement, 2L NC. (6) Hypertension: Qualifiers: Hypertension type: primary hypertension Qualified Code(s): I10 - Essential (primary) hypertension Code(s): I10 - Essential (primary) hypertension Status: Chronic Assessment and Plan: - chronic, currently 180/71 - continue home medications - monitor (7) NBA on CPAP: Code(s): G47.33 - Obstructive sleep apnea (adult) (pediatric); Z99.89 - Dependence on other enabling machines and devices Status: Chronic Assessment and Plan: - continue home CPAP Plan Initially patient was admitted into ICU with concern for suicide, patient was evaluated and cleared that patient does not have intention to harm herself or anyone else, patient remains somewhat agitated suspect due to possibly hyponatremia and UTI, her sodium levels are trending up close to her baseline, and her urine is klebs aerogenes and being treated with cefepime, patient still has episodes of agitation and confusions on and off, better but episodes are short, psychiatric consult is in place, and further recommendation to follow. Diet: Regular GI Prophylaxis: n/a DVT Prophylaxis: SCDs IV fluids: 1L bolus -> 100 mL/hr x1L Lines/Tubes: Peripheral IV Code Status: Full code Subjective Date/time seen: 10/20/24 12:37 Interval history: Chief Complaint: Agitation H&P-Narrative: 79 y/o F with PMH of COPD, depression, anxiety, Genevieve's thyroiditis, migraines, seronegative collagen disorder, squamous cell carcinoma, supplemental oxygen dependent, hypertension, fibromyalgia and CHF presents here with agitation. The patient presents here from [facility], [place] via EMS for further evaluation of agitation. The patient was initially disorientated [facility] this week which was accompanied by agitation/aggression. She was evaluated on 10/12 for these symptoms and found to have a UTI. At that time the patient and her were comfortable with her going home and she was treated with Keflex. She is now returning today, 10/17, for re-evaluation. Initially the patient's reports she was improving but became combative again. Patient making statements that she would kill herself and her . Patient also attempted to hurt herself by scratching her wrist with her fingernail. When asked to further elaborate on these statements she reports she and her have not been intimate for some time and that was the reason she was citing suicide and divorce. Per , the patient has never displayed any of these behaviors prior to the UTI she experienced on Tuesday (10/12). She does have some mild dementia which he noted effects her short term memory, but has not caused any behavioral issues. Initial VS at presentation: 99.1? F, HR 60, R 18, 182/75, and 99% on 2L nasal cannula. ED workup showed: No leukocytosis, hemoglobin 10.9 (10.4 on 10/12), sodium 126 (133 on 10/12), TSH within normal limits, and UA unremarkable. UDS, ethanol, COVID negative. Head CT showed no acute intracranial hemorrhage, no mass effect, probable chronic ischemic white matter change, and cerebral atrophy appropriate for patient's age. CXR showed a left basilar airspace disease which may represent pneumonia or less likely asymmetric edema. Initially patient was admitted into ICU with concern for suicide, patient was evaluated and cleared that patient does not have intention to harm herself or anyone else, patient remains somewhat agitated suspect due to possibly hyponatremia and UTI, her sodium levels are trending up close to her baseline, a nd her urine is klebs aerogenes and being treated with cefepime, patient still has episodes of agitation and confusions on and off, better but episodes are short, psychiatric consult is in place, and further recommendation to follow. Review of Systems Review of Systems: All systems reviewed & are unremarkable except as noted in HPI and below Exam Narrative: Patient is comfortable, NAD HEENT: eyes are clear and none icteric LUNGS:CTA HEART: RR S1S2 ABD: BS+, Soft and nontender Lower extremities: no edema SKIN: nonjaundiced Neuro: grossly intact. Objective Data Vital Signs Vital Signs: Vital Signs - 24 hr 10/19/24 16:00 10/19/24 22:40 10/20/24 06:00 Temperature 36.4 C 36.6 C 36.6 C Pulse Rate 62 61 69 Respiratory Rate 16 18 18 Blood Pressure 132/74 129/71 122/65 Pulse Oximetry 100 99 100 Oxygen Delivery Oxygen Flow Rate 10/20/24 07:38 10/20/24 07:39 10/20/24 07:42 Temperature Pulse Rate 69 70 Respiratory Rate 16 16 Blood Pressure Pulse Oximetry 97 Oxygen Delivery Nasal Cannula Oxygen Flow Rate 2 Intake/Output Intake/Output: Intake & Output 08/13/25 10/18/24 10/19/24 10/20/24 23:59 23:59 23:59 23:59 Intake Total 1200 2290 1100 1010 Output Total 1900 2150 1800 Balance 1200 390 -2460 -790 Meds/Results Medications: Active Medications Generic Name Dose Route Start Last Admin Trade Name Freq PRN Reason Stop Dose Admin Acetaminophen 650 mg 10/17/24 19:31 Acetaminophen 325 Mg Tablet PO Q6H PRN Mild Pain (1-3) or Fever Albuterol 1 - 2 puff 10/17/24 23:38 Albuterol Sulfate (*Sp) Aerosol 1 Puff INHALATION Q4HRT PRN shortness of breath or wheezing Albuterol/Ipratropium 3 ml 10/17/24 19:29 10/20/24 07:36 Ipratropium 0.5 Mg/Albuterol Sulfate 2.5 Mg Ampul.Neb 3 Ml INHALATION 3 ml Q6HRT PRN Administration Shortness Of Breath Or Wheezing Amlodipine Besylate 10 mg 10/18/24 09:00 10/20/24 09:19 Amlodipine Besylate 10 Mg Tablet PO Not Given DAILY VIN Aspirin 81 mg 10/18/24 09:00 10/20/24 09:19 Aspirin 81 Mg Enteric Tablet PO Not Given QAM [facility] Bacitracin 1 applic 10/17/24 23:38 Bacitracin Ointment 15 Gm Tube TOPICAL BID PRN unknown Benzonatate 100 mg 10/17/24 19:23 10/18/24 09:42 Benzonatate 100 Mg Capsule PO 100 mg TID PRN Administration Cough Diclofenac Sodium 1 applic 10/17/24 23:38 Diclofenac Sodium 1% 100 Gm Gel (*Bkc) TOPICAL QID PRN Pain Docusate Sodium 100 mg 10/18/24 09:00 10/19/24 20:51 Docusate Sodium 100 Mg Capsule PO 100 mg Q12HR VIN Administration Donepezil HCl 5 mg 10/18/24 21:00 10/19/24 20:51 Donepezil Hcl 5 Mg Tablet PO 5 mg QHS VIN Administration Fish Oil 1 gm 10/18/24 09:00 10/20/24 09:20 [place] 3 Polyunsat Fatty Acids 1 Gm Cap PO Not Given QAM VIN Fluoxetine HCl 20 mg 10/18/24 06:00 10/20/24 06:23 Fluoxetine Hcl 20 Mg Capsule PO 20 mg Q8HR VIN Administration Fluticasone/Umeclidinium/Vilanterol 1 puff 10/18/24 08:00 10/19/24 08:03 Fluticasone/Umeclidin/Vilanter 200-62.5-25 Mcg Ellipta INHALATION 1 puff DAILYRT VIN Administration Folic Acid 1 mg 10/18/24 09:00 10/20/24 09:20 Folic Acid 1 Mg Tablet PO Not Given DAILY VIN Furosemide 20 mg 10/17/24 23:38 Furosemide 20 Mg Tablet PO QPM PRN weight gain Gabapentin 300 mg 10/18/24 09:00 10/19/24 16:36 Gabapentin 300 Mg Capsule PO 300 mg TID VIN Administration Guaifenesin 600 mg 10/17/24 23:38 10/18/24 09:42 Guaifenesin 12 Hr 600 Mg Tabcr PO 600 mg Q12H PRN Administration congestion Doxycycline Hyclate 100 mg/ 100 mls @ 100 mls/hr 10/18/24 04:00 10/20/24 04:45 Sodium Chloride IVPB Infused Q12H [facility] Infusion Cefepime HCl 2 gm/ Sodium 50 mls @ 100 mls/hr 10/18/24 10:10 10/20/24 09:19 Chloride IVPB Not Given Q12HR [facility] Levothyroxine Sodium 150 mcg 10/18/24 06:30 10/20/24 06:23 Levothyroxine Sodium 150 Mcg Tablet PO 150 mcg DAILY@0630 VIN Administration Lidocaine 2 patch 10/19/24 21:00 10/19/24 20:51 Lidocaine 5% Patch TOPICAL 2 patch HS [facility] Administration Loratadine 10 mg 10/17/24 23:38 Loratadine 10 Mg Tablet PO DAILY PRN allergy symptoms Montelukast Sodium 10 mg 10/18/24 09:00 10/20/24 09:20 Montelukast Sodium 10 Mg Tablet PO Not Given DAILY VIN Naloxone HCl 0.1 mg 10/19/24 13:20 Naloxone Hcl 0.4 Mg/Ml Vial IV PUSH Q5MIN PRN Opioid Reversal Nebivolol 10 mg 10/18/24 09:00 10/20/24 09:20 Nebivolol Hcl 5 Mg Tablet PO Not Given DAILY VIN Ondansetron HCl 4 mg 10/17/24 19:31 Ondansetron Hcl Odt 4 Mg Tablet PO Q6H PRN Nausea And Vomiting Pantoprazole Sodium 40 mg 10/18/24 09:00 10/20/24 09:20 Pantoprazole 40 Mg Tablet PO Not Given Q12HR VIN Polyethylene Glycol 17 gm 10/17/24 19:31 Polyethylene Glycol 3350 17 Gm Powd.Pack PO QAM PRN Constipation Potassium Chloride 10 meq 10/17/24 23:38 Potassium Chloride 10 Meq Er Tablet PO DAILY PRN with lasix Pravastatin Sodium 40 mg 10/18/24 09:00 10/20/24 09:20 Pravastatin Sodium 20 Mg Tablet PO Not Given DAILY VIN Spironolactone 25 mg 10/18/24 09:00 10/20/24 09:20 Spironolactone 25 Mg Tablet PO Not Given DAILY VIN Telmisartan 40 mg 10/18/24 09:00 10/20/24 09:21 Telmisartan 40 Mg Tablet PO Not Given Q12HR [facility] Vitamin D 50 mcg 10/18/24 09:00 10/20/24 09:19 Cholecalciferol (Vitamin D3) 25 Mcg (1,000 Units) Tablet PO Not Given DAILY [facility] Radiology Results: ITS Impressions Head CT 10/17/24 12:34 IMPRESSION: 1. No acute intracranial hemorrhage. No mass effect. 2. Probable chronic ischemic white matter change. 3. Cerebral atrophy appropriate for the patient's age. Chest X-Ray 10/17/24 12:46 Impression: 1: Left basilar airspace disease may represent pneumonia or less likely asymmetric edema. Labs Labs: Laboratory Results - last 24 hr 10/17/24 20:46 Urine Osmolality 183 Quality VTE Prophylaxis VTE prophylaxis: mechanical ordered
[2024-10-20] MEDS: CHOLECALCIFEROL (VITAMIN D3) 25 MCG (1,000 UNITS) TABLET 50 MCG PO (12:40)
[2024-10-20] MEDS: DOCUSATE SODIUM 100 MG CAPSULE PO ×2 (12:40→21:42)
[2024-10-20] MEDS: GABAPENTIN 300 MG CAPSULE PO ×2 (12:40→17:30)
[2024-10-20] MEDS: OMEGA 3 POLYUNSAT FATTY ACIDS 1 GM CAP PO (12:40)
[2024-10-20] MEDS: TELMISARTAN 40 MG TABLET PO ×2 (12:40→21:42)
[2024-10-20] MEDS: FOLIC ACID 1 MG TABLET PO (12:41)
[2024-10-20] MEDS: PANTOPRAZOLE 40 MG TABLET PO ×2 (12:41→21:42)
[2024-10-20] MEDS: NEBIVOLOL HCL 5 MG TABLET 10 MG PO (12:41)
[2024-10-20] MEDS: SPIRONOLACTONE 25 MG TABLET PO (12:41)
[2024-10-20] MEDS: ASPIRIN 81 MG ENTERIC TABLET PO (12:41)
[2024-10-20] MEDS: MONTELUKAST SODIUM 10 MG TABLET PO (12:41)
[2024-10-20] MEDS: PRAVASTATIN SODIUM 20 MG TABLET 40 MG PO (12:42)
[2024-10-20] MEDS: CEFEPIME 2 GM in SODIUM CHLORIDE 0.9% IV 50 ML 100 ML IVPB ×2 (12:43→21:41)
[2024-10-20] MEDS: ACETAMINOPHEN 325 MG TABLET 650 MG PO (12:55)
[2024-10-20] MEDS: DICLOFENAC SODIUM 1% 100 GM GEL (*BKC) 1 APPLIC TOPICAL (13:35)
[2024-10-20] MEDS: DONEPEZIL HCL 5 MG TABLET PO (21:42)
[2024-10-20] MEDS: LIDOCAINE 5% PATCH 2 PATCH TOPICAL (21:43)
[2024-10-20 22:07] LABS: Osmolality, Serum 276 mOsmol/kg (280-301)
--- NOTE | 2024-10-20 23:19 | P.PSYCH_ITS ---
Assessment and Plan Assessment and plan (1) Depression with anxiety: Code(s): F41.8 - Other specified anxiety disorders Status: Acute Assessment and Plan: Patient admitted for hyponatremia secondary to poor oral intake. patient admitted and was reported as being agitated and confused. confusion/agitation improved with treatment of UTI. patient reports that her does the cooking. She has had chronic, compensated mild hyponatremia for years. This is not a concern at this time and does not require immediate medication change. she has been on fluoxetine for decades and risk of destabilizing outways the relitively small risk of long-standing, stable, mild hyponatremia- as long as she has periodic sodium checks (every 6 to 12 months) Patient has long-standing history of depression diagnosed in young adulthood. Has been on fluoxetine 20mg daily for many years with good response. Currently denies symptoms of depression including sadness, anhedonia, or suicidal ideation. Last reported suicidal thoughts were over 30 years ago prior to current marriage. plan - continue fluoxetine 20 mg daily - continue treatment of infection - monitor NA+ - Follow up with PCP - stay alert for new symptoms (falls, confusion- not secondary to infection-, worsening fatigue) (2) Mild cognitive impairment with memory loss: Code(s): G31.84 - Mild cognitive impairment of uncertain or unknown etiology Status: Acute Assessment and Plan: Patient presents with acute onset of confusion and memory impairment. Disoriented to time and place, unable to recall recent events or current living situation. Acute change in mental status likely due to urinary tract infection. Has been hospitalized approximately 4 days for treatment of infection. Confusion expected to improve with treatment of underlying infection. SLUMS score: 25- mild cognitive impairment - Plan: a. Continue treatment for urinary tract infection b. Monitor sodium levels due to chronic hyponatremia c. Await results of blood cultures d. Reassess mental status daily e. Provide orientation cues and supportive care f. continue home medication (Donepezil 5 mg HS) HPI Data of Consult Date/Time: 10/20/24 23:19 Requesting Physician: Brenden Cadena MD Primary Care Provider: Kristofer Key DO Consult Narrative Narrative: Marialuisa Darden is a 79 year old female with a history major depressive disorder, presented with acute confusion and disorientation following hospitalization for a urinary tract infection. She demonstrated significant memory impairment, unable to recall recent events or her current living situation. Despite her long-standing depression history, she denied current depressive symptoms while continuing fluoxetine 20mg daily. Physical examination revealed mobility limitations requiring walker/wheelchair use. Laboratory results showed hyponatremia. Treatment focused on continuing UTI management, monitoring sodium levels, and maintaining her antidepressant with possible adjustment if hyponatremia persisted. continue Donepezil 5 mg HS and fluoxetine 20 mg daily. SYD-7 score: 0, [place] Depression inventory score: 4 SLUMS score: 25. Review of Systems 2 Constitutional: Constitutional: Reports poor appetite (reported decreased appetite) and Reports weakness Psychiatric: Psychiatric: Reports memory loss Comments: denied depression or anxiety denied loss of interest in activities. denied feeling hopeless/helpless denied poor energy denied poor self-esteem. reports mild appetite decrease. denied fatigue reports poor focus denied difficulty sleeping denied SI/HI denied AH/VH denied alcohol/drug use. reports memory problems since being in the hospital denied getting lost easily- reports she does not drive denied difficulty with word finding. denied difficulty with ADLs. reports feeling safe at home. [facility] Past Medical History Medical History Femur fracture, right Surgical screws Fracture, foot Right Metatarsal Anemia Undifferentiated connective tissue disease Depression with anxiety COPD (chronic obstructive pulmonary disease) NBA on CPAP Dementia History of ARDS Diastolic dysfunction History of nuclear stress test History of abnormal electrocardiogram Genevieve's thyroiditis Rosacea w/ ocular involvement Depression History of rectocele History of migraine headaches Spondylosis of cervical spine Arthralgia H/O antinuclear antibodies intermittent +ABRAM to 1:320 Vascular disorder seronegative collagen disorder History of squamous cell carcinoma History of staph infection Chronic left shoulder pain arthritis; possibly inflammatory Fracture, rib Aftercare following finger joint replacement surgery Thyroiditis Scoliosis History of left heart catheterization Tubal ligation evaluation Enlarged ureter Supplemental oxygen dependent Hypertension Fibromyalgia CHF (congestive heart failure) Surgical History Surgical History History of cataract extraction with lens replacement History of arthroplasty of knee Left History of removal of pigmented skin lesion Nose 2021 History of hysterectomy Total History of ERCP History of fusion of lumbar spine L2-L5 lumbar fusion Titanium History of laminectomy History of total knee replacement History of cholecystectomy 2003 History of tubal ligation History of D&C History of hip surgery right Total knee replacement status Previous back surgery S/P peroneal tendon repair History of surgical removal of ganglion cyst 1960 H/O hernia repair 1947 Family History Family History Unknown No problems noted. Mother Esophageal cancer Other Alcohol abuse Cancer Hypertension Social History Social History Social History: She lives with her and has 3 biologic children. She also has 1 adopted child. 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 She is a former smoker. Code status full code Smoking packs per day: 1 Smoking cigarettes per day: 20.0 Years smoked: 10 Smoking pack-years: 10.00 Smoking status: Former smoker Tobacco type: cigarettes Smoking end date: 11/23/81 Additional smoking assessment comments: quit 1981 Alcohol intake: current Alcohol use details: 0-1 per week Substance use: unknown Substance use type: does not use Other substance usage details: social occassions Do You Feel Safe in your Home?: Yes Lack of Transportation: No Lack of Food: Never True Current Housing: I Have Housing Concerned About Future Housing: No Difficulty Paying Gas/Electric Bills: No Difficulty Paying for Meds: No Currently Unemployed: No Education: Decline to Answer Difficulty w/ Childcare or Family Care: No Living arrangements: with family Additional living arrangements comments: [facility]. Occupation/Education: retired Gender identity (if verbalized by the patient): Female Spiritual care concerns: No Agree to blood products: Yes Meds Home Medications and Allergies Home Medications ?Medication ?Instructions ?Recorded ?Confirmed ?Type docusate sodium 100 mg capsule 100 mg PO BID 11/18/21 10/17/24 History diclofenac sodium 1 % topical gel 4 g topical QID PRN Pain 05/13/22 10/17/24 History (Arthritis Pain (diclofenac)) telmisartan 40 mg tablet 40 mg PO BID 05/13/22 10/17/24 History spironolactone 25 mg tablet 25 mg PO DAILY 06/15/22 10/17/24 History albuterol sulfate 2.5 mg/3 mL 2.5 mg inhalation Q6-8H PRN 12/28/22 10/17/24 History (0.083 %) solution for nebulization shortness of breath or wheezing naloxone 4 mg/actuation nasal spray 4 mg intranasal Q2-3M PRN opioid 03/22/23 10/17/24 Rx overdose #2 ea fluticasone fur. 200 mcg-umeclid 1 inh inhalation DAILY #180 ea 12/27/23 10/17/24 Rx 62.5 mcg-vilant 25 mcg inhalat.powder (Trelegy Ellipta) albuterol sulfate 90 mcg/actuation 1 - 2 puff inhalation Q4-6H PRN 02/21/24 10/17/24 Rx aerosol inhaler shortness of breath or wheezing #25.5 grams aspirin 81 mg capsule 81 mg PO DAILY 03/08/24 10/17/24 History cholecalciferol (vitamin D3) 50 2,000 unit PO DAILY 03/08/24 10/17/24 History mcg (2,000 unit) capsule omega 3 350 mg-dha 235 mg-epa 90 1 cap PO DAILY 03/08/24 10/17/24 History mg-fish oil 597 mg capsule,delay rel ([place]-3) vibegron 75 mg tablet (Gemtesa) 75 mg PO DAILY 03/08/24 10/17/24 History CPAP 05/21/24 10/17/24 History Pain Pump 05/21/24 10/17/24 History bacitracin 500 unit/gram topical 1 applic topical BID PRN dry nose 05/21/24 10/20/24 History ointment furosemide 20 mg tablet (Lasix) 20 mg PO QPM PRN weight gain 05/21/24 10/17/24 History guaifenesin 600 mg tablet, 600 mg PO Q12H PRN congestion 05/21/24 10/17/24 History extended release 12 hr (Mucinex) loratadine 10 mg tablet (Claritin) 10 mg PO DAILY PRN allergy symptoms 05/21/24 10/17/24 History oxygen 05/21/24 10/17/24 History potassium chloride 10 mEq 10 meq PO DAILY PRN with lasix 05/21/24 10/17/24 History tablet,extended release (Klor-Con) lidocaine 5 % topical patch See Rx Instructions .Route 07/23/24 10/17/24 Rx .COMPLEX #90 patches amlodipine 10 mg tablet 10 mg PO DAILY #90 tabs 08/27/24 10/17/24 Rx donepezil 5 mg tablet 5 mg PO QHS #90 tabs 08/27/24 10/17/24 Rx fluoxetine 20 mg capsule 20 mg PO TID #270 caps 08/27/24 10/17/24 Rx gabapentin 300 mg capsule 300 mg PO TID #270 caps 08/27/24 10/17/24 Rx montelukast 10 mg tablet 10 mg PO DAILY #90 tabs 08/27/24 10/17/24 Rx pantoprazole 40 mg tablet,delayed 40 mg PO BID #180 tabs 08/27/24 10/17/24 Rx release pravastatin 40 mg tablet 40 mg PO DAILY #90 tabs 08/27/24 10/17/24 Rx levothyroxine 150 mcg tablet 150 mcg PO DAILY #90 tabs 08/28/24 10/17/24 Rx (Synthroid) nebivolol 10 mg tablet (Bystolic) 10 mg PO DAILY #90 tabs 08/28/24 10/17/24 Rx folic acid 1 mg tablet 1 mg PO DAILY #90 tabs 09/03/24 10/17/24 Rx cephalexin 500 mg capsule 500 mg PO Q8H 7 days #21 caps 10/12/24 10/17/24 Rx Allergies Allergy/AdvReac Type Severity Reaction Status Date / Time clindamycin Allergy Severe Chills Verified 10/17/24 11:47 diazepam Allergy Severe suicidal Verified 10/17/24 11:47 ideation levofloxacin (From Levaquin) Allergy Intermediate Itching Verified 10/17/24 11:47 cat dander Allergy Unknown Sinusitis Verified 10/17/24 11:47 dog dander Allergy Unknown Sinusitis Verified 10/17/24 11:47 feathers Allergy Unknown Sinusitis Verified 10/17/24 11:47 grass pollen Allergy Unknown Sinusitis Verified 10/17/24 11:47 house dust Allergy Unknown Sinusitis Verified 10/17/24 11:47 Rabbit Allergy Unknown Sinusitis Verified 10/17/24 11:47 tree and shrub pollen Allergy Unknown Sinusitis Verified 10/17/24 11:47 adhesive tape Allergy Redness of Verified 10/17/24 11:47 Skin silicone Allergy Unknown Verified 10/17/24 11:47 meperidine (From Demerol) AdvReac Hallucinati Verified 10/17/24 11:47 ng oxycodone (From Percocet) AdvReac Nausea Verified 10/17/24 11:47 propoxyphene AdvReac Nausea and Verified 10/17/24 11:47 Vomiting Vital Signs Vital Signs - 24 hr 10/20/24 06:00 10/20/24 07:38 10/20/24 07:39 Temperature 97.8 F Pulse Rate 69 69 Respiratory Rate 18 16 Blood Pressure 122/65 Pulse Oximetry 100 97 Oxygen Delivery Nasal Cannula Oxygen Flow Rate 2 10/20/24 07:42 10/20/24 08:00 10/20/24 12:41 Temperature Pulse Rate 70 93 70 Respiratory Rate 16 18 Blood Pressure Pulse Oximetry 98 Oxygen Delivery Nasal Cannula Oxygen Flow Rate 2 10/20/24 14:47 10/20/24 21:06 Temperature 97.6 F 97.6 F Pulse Rate 65 64 Respiratory Rate 18 18 Blood Pressure 143/65 H 140/72 Pulse Oximetry 98 99 Oxygen Delivery Oxygen Flow Rate Exam 2 Const: Other: General: Awake and alert. Uses walker or wheelchair for mobility. Neurological: Oriented to person and place. Speech is normal. No apparent issues with word-finding. Psych: Other: Patient presents as 79-year-old female Cooperative with interview. Speech normal with no apparent issues noted. Able to engage in conversation. Mood described as I'm fine. Thought process mostly linear and goal-directed, with some tangential responses. Cognition: Oriented to place (hospital in [place], [place]) and date (October 21, 2024). Demonstrates confusion about recent events and current living situation. Immediate recall impaired (unable to remember 5 objects). Able to perform simple calculations and animal naming task. Able to repeat numbers backwards. Clock drawing completed correctly. Insight: Limited insight into current medical situation and reason for hospitalization. Judgment: Defers to for most decision-making. Results Labs 10/21/24 04:39 10/21/24 04:39
[2024-10-21] VITALS (8 sets, daily range): BP systolic 126–140; BP diastolic 66–76; PULSE 62–68; RESP 20; TEMP 36.6–36.8; O2SAT 90–98
[2024-10-21] MEDS: DOXYCYCLINE IV 100 MG in SODIUM CHLORIDE 0.9% IV 100 ML IVPB ×2 (04:16→16:45)
[2024-10-21 04:58] LABS: Hematocrit 29.6 % (37.0-47.0); Hemoglobin 9.6 g/dL (12.0-15.0); Mean Corpuscular HGB Conc 32.4 g/dl (32-36); Mean Corpuscular Hemoglobin 30.5 pg (26-34); Mean Corpuscular Volume 94.0 fl (80-100); Platelet Count Result 142 k/mm3 (150-375); Red Blood Count 3.15 M/mm3 (4.2-5.4); White Blood Count 7.3 K/mm3 (4.5-10.0)
[2024-10-21 05:17] LABS: Anion Gap 8 mmol/L (4-12); Blood Urea Nitrogen 13 mg/dL (7-17); Calcium 9.5 mg/dL (8.4-10.2); Carbon Dioxide 23 mmol/L (22-30); Chloride 100 mmol/L (98-107); Estimated CRCL calculation 53 ml/min; Estimated Glomerular Filt Rate > 60; Glucose 99 mg/dL (65-110); Magnesium 1.6 mg/dL (1.6-2.3); Potassium 4.0 mmol/L (3.4-5.0); Sodium 131 mmol/L (137-145)
--- NOTE | 2024-10-21 05:26 | PCRCNOTE ---
Patient is confused this pm, asking where she is, what year it is and why she is not in bed, in her (and her 's) RV
[2024-10-21] MEDS: LEVOTHYROXINE SODIUM 150 MCG TABLET PO (06:30)
[2024-10-21] MEDS: CEFEPIME 2 GM in SODIUM CHLORIDE 0.9% IV 50 ML 100 ML IVPB ×2 (08:57→20:51)
[2024-10-21] MEDS: ASPIRIN 81 MG ENTERIC TABLET PO (08:57)
[2024-10-21] MEDS: CHOLECALCIFEROL (VITAMIN D3) 25 MCG (1,000 UNITS) TABLET 50 MCG PO (08:58)
[2024-10-21] MEDS: FOLIC ACID 1 MG TABLET PO (08:58)
[2024-10-21] MEDS: PRAVASTATIN SODIUM 20 MG TABLET 40 MG PO (08:58)
[2024-10-21] MEDS: NEBIVOLOL HCL 5 MG TABLET 10 MG PO (08:58)
[2024-10-21] MEDS: MONTELUKAST SODIUM 10 MG TABLET PO (08:58)
[2024-10-21] MEDS: DOCUSATE SODIUM 100 MG CAPSULE PO ×2 (08:58→20:51)
[2024-10-21] MEDS: TELMISARTAN 40 MG TABLET PO ×2 (08:58→20:51)
[2024-10-21] MEDS: GABAPENTIN 300 MG CAPSULE PO ×3 (08:58→16:45)
[2024-10-21] MEDS: PANTOPRAZOLE 40 MG TABLET PO ×2 (08:58→20:51)
[2024-10-21] MEDS: SPIRONOLACTONE 25 MG TABLET PO (08:58)
[2024-10-21] MEDS: OMEGA 3 POLYUNSAT FATTY ACIDS 1 GM CAP PO (08:58)
[2024-10-21] MEDS: DICLOFENAC SODIUM 1% 100 GM GEL (*BKC) 1 APPLIC TOPICAL (09:00)
[2024-10-21] MEDS: FLUTICASONE/UMECLIDIN/VILANTER 200-62.5-25 MCG ELLIPTA 1 PUFF INHALATION (09:20)
--- NOTE | 2024-10-21 11:29 | PM.IMPN ---
Progress Note: A&P Assessment and Plan (1) Acute metabolic encephalopathy: Code(s): G93.41 - Metabolic encephalopathy Status: Acute Assessment and Plan: Patient able to answer orientation questions, however upon further investigation and during her interview she continuously demonstrated agitation and confusion. Initially precipitated by a UTI which has since been treated and UA currently appears unremarkable. Further workup in the emergency department revealed a new/acute hyponatremia and possible pneumonia. See sections below. Head CT negative. History of hypothyroidism, TSH within normal limits. Patient has additionally made suicidal and homicidal statements since becoming confused (however appear to be in a joking manner) that were given more weight due to patient attempting to self-harm by cutting her wrist with her fingernails, will place on suicide precautions until encephalopathy/confusion improved. Once patient is medically cleared, will need re-evaluation. Monitor confusion and agitation. (2) Acute hyponatremia: Code(s): E87.1 - Hypo-osmolality and hyponatremia Status: Acute Assessment and Plan: - Na 126 - check serum osmolality, urine osmolality, urine sodium, protein to creatinine ratio, urine creatinine - IV fluids: 1L bolus -> 100 mL/hr x1L - trend renal function - monitor neurological status Suspect drop in sodium secondary to poor p.o. intake as the patient has been intermittently confused and agitated over the last few days. No nausea, vomiting, diarrhea noted by patient. (3) Community acquired pneumonia: Qualifiers: Laterality: unspecified laterality Qualified Code(s): J18.9 - Pneumonia, unspecified organism Code(s): J18.9 - Pneumonia, unspecified organism Status: Acute Assessment and Plan: - CXR: Left basilar airspace disease may represent pneumonia or less likely asymmetric edema. - started on ceftriaxone and doxycycline IV on 10/17 - check MRSA PCR and sputum culture (if obtainable) - supportive care - currently on baseline supplemental O2 requirement - 2L NC (4) Hypothyroidism: Qualifiers: Hypothyroidism type: acquired Qualified Code(s): E03.9 - Hypothyroidism, unspecified Code(s): E03.9 - Hypothyroidism, unspecified Status: Acute Assessment and Plan: - TSH 0.713 - continue home Synthroid (5) Hypoxemic respiratory failure, chronic: Code(s): J96.11 - Chronic respiratory failure with hypoxia Status: Acute Assessment and Plan: - no worsening hypoxia. on baseline requirement, 2L NC. (6) Hypertension: Qualifiers: Hypertension type: primary hypertension Qualified Code(s): I10 - Essential (primary) hypertension Code(s): I10 - Essential (primary) hypertension Status: Chronic Assessment and Plan: - chronic, currently 180/71 - continue home medications - monitor (7) NBA on CPAP: Code(s): G47.33 - Obstructive sleep apnea (adult) (pediatric); Z99.89 - Dependence on other enabling machines and devices Status: Chronic Assessment and Plan: - continue home CPAP Plan Initially patient was admitted into ICU with concern for suicide, patient was evaluated and cleared that patient does not have intention to harm herself or anyone else, patient remains somewhat agitated suspect due to possibly hyponatremia and UTI, her sodium levels are trending up close to her baseline, patient was seen by psychiatrist and suspect hyponatremia is mild and chronic does not require any medication change and recommended to continue palxil as she has been taking for close to 20yrs, and her urine growing klebs aerogenes and being treated with cefepime, patient still has episodes of agitation and confusions on and off, better today but episodes are short, patient is clinically stable, her is present gave updates, and further recommendation to follow. Diet: Regular GI Prophylaxis: n/a DVT Prophylaxis: SCDs IV fluids: 1L bolus -> 100 mL/hr x1L Lines/Tubes: Peripheral IV Code Status: Full code Subjective Date/time seen: 10/21/24 11:29 Interval history: Chief Complaint: Agitation H&P-Narrative: 79 y/o F with PMH of COPD, depression, anxiety, Genevieve's thyroiditis, migraines, seronegative collagen disorder, squamous cell carcinoma, supplemental oxygen dependent, hypertension, fibromyalgia and CHF presents here with agitation. The patient presents here from [facility], [place] via EMS for further evaluation of agitation. The patient was initially disorientated earlier this week which was accompanied by agitation/aggression. She was evaluated on 10/12 for these symptoms and found to have a UTI. At that time the patient and her were comfortable with her going home and she was treated with Keflex. She is now returning today, 10/17, for re-evaluation. Initially the patient's reports she was improving but became combative again. Patient making statements that she would kill herself and her . Patient also attempted to hurt herself by scratching her wrist with her fingernail. When asked to further elaborate on these statements she reports she and her have not been intimate for some time and that was the reason she was citing suicide and divorce. Per , the patient has never displayed any of these behaviors prior to the UTI she experienced on Tuesday (10/12). She does have some mild dementia which he noted effects her short term memory, but has not caused any behavioral issues. Initial VS at presentation: 99.1? F, HR 60, R 18, 182/75, and 99% on 2L nasal cannula. ED workup showed: No leukocytosis, hemoglobin 10.9 (10.4 on 10/12), sodium 126 (133 on 10/12), TSH within normal limits, and UA unremarkable. UDS, ethanol, COVID negative. Head CT showed no acute intracranial hemorrhage, no mass effect, probable chronic ischemic white matter change, and cerebral atrophy appropriate for patient's age. CXR showed a left basilar airspace disease which may represent pneumonia or less likely asymmetric edema. Initially patient was admitted into ICU with concern for suicide, patient was evaluated and cleared that patient does not have intention to harm herself or anyone else, patient remains somewhat agitated suspect due to possibly hyponatremia and UTI, her sodium levels are trending up close to her baseline, patient was seen by psychiatrist and suspect hyponatremia is mild and chronic does not require any medication change and recommended to continue palxil as she has been taking for close to 20yrs, and her urine growing klebs aerogenes and being treated with cefepime, patient still has episodes of agitation and confusions on and off, better today but episodes are short, patient is clinically stable, her is present gave updates, and further recommendation to follow. Review of Systems Review of Systems: All systems reviewed & are unremarkable except as noted in HPI and below Exam Narrative: Patient is comfortable, NAD HEENT: eyes are clear and none icteric LUNGS:CTA HEART: RR S1S2 ABD: BS+, Soft and nontender Lower extremities: no edema SKIN: nonjaundiced Neuro: grossly intact. Objective Data Vital Signs Vital Signs: Vital Signs - 24 hr 10/20/24 12:41 10/20/24 14:47 10/20/24 21:06 Temperature 36.4 C 36.4 C Pulse Rate 70 65 64 Respiratory Rate 18 18 Blood Pressure 143/65 H 140/72 Pulse Oximetry 98 99 Oxygen Delivery Oxygen Flow Rate 10/21/24 04:14 10/21/24 08:58 10/21/24 09:21 Temperature 36.6 C Pulse Rate 62 62 Respiratory Rate 20 Blood Pressure 126/72 Pulse Oximetry 98 95 Oxygen Delivery Nasal Cannula Oxygen Flow Rate 2 Intake/Output Intake/Output: Intake & Output 10/18/24 10/19/24 10/20/24 10/21/24 23:59 23:59 23:59 23:59 Intake Total 2290 1100 2020 400 Output Total 1900 2150 2150 900 Balance 390 -8622 -130 500 Meds/Results Medications: Active Medications Generic Name Dose Route Start Last Admin Trade Name Freq PRN Reason Stop Dose Admin Acetaminophen 650 mg 10/17/24 19:31 10/20/24 12:55 Acetaminophen 325 Mg Tablet PO 650 mg Q6H PRN Administration Mild Pain (1-3) or Fever Albuterol 1 - 2 puff 10/17/24 23:38 Albuterol Sulfate (*Sp) Aerosol 1 Puff INHALATION Q4HRT PRN shortness of breath or wheezing Albuterol/Ipratropium 3 ml 10/17/24 19:29 10/20/24 07:36 Ipratropium 0.5 Mg/Albuterol Sulfate 2.5 Mg Ampul.Neb 3 Ml INHALATION 3 ml Q6HRT PRN Administration Shortness Of Breath Or Wheezing Amlodipine Besylate 10 mg 10/18/24 09:00 10/21/24 08:57 Amlodipine Besylate 10 Mg Tablet PO 10 mg DAILY VIN Administration Aspirin 81 mg 10/18/24 09:00 10/21/24 08:57 Aspirin 81 Mg Enteric Tablet PO 81 mg QAM VIN Administration Bacitracin 1 applic 10/17/24 23:38 Bacitracin Ointment 15 Gm Tube TOPICAL BID PRN unknown Benzonatate 100 mg 10/17/24 19:23 10/18/24 09:42 Benzonatate 100 Mg Capsule PO 100 mg TID PRN Administration Cough Diclofenac Sodium 1 applic 10/17/24 23:38 10/21/24 09:00 Diclofenac Sodium 1% 100 Gm Gel (*Bkc) TOPICAL 1 applic QID PRN Administration Pain Docusate Sodium 100 mg 10/18/24 09:00 10/21/24 08:58 Docusate Sodium 100 Mg Capsule PO 100 mg Q12HR VIN Administration Donepezil HCl 5 mg 10/18/24 21:00 10/20/24 21:42 Donepezil Hcl 5 Mg Tablet PO 5 mg QHS VIN Administration Fish Oil 1 gm 10/18/24 09:00 10/21/24 08:58 [place] 3 Polyunsat Fatty Acids 1 Gm Cap PO 1 gm QAM VIN Administration Fluoxetine HCl 20 mg 10/18/24 06:00 10/20/24 21:43 Fluoxetine Hcl 20 Mg Capsule PO 20 mg Q8HR VIN Administration Fluticasone/Umeclidinium/Vilanterol 1 puff 10/18/24 08:00 10/21/24 09:20 Fluticasone/Umeclidin/Vilanter 200-62.5-25 Mcg Ellipta INHALATION 1 puff DAILYRT VIN Administration Folic Acid 1 mg 10/18/24 09:00 10/21/24 08:58 Folic Acid 1 Mg Tablet PO 1 mg DAILY VIN Administration Furosemide 20 mg 10/17/24 23:38 Furosemide 20 Mg Tablet PO QPM PRN weight gain Gabapentin 300 mg 10/18/24 09:00 10/21/24 08:58 Gabapentin 300 Mg Capsule PO 300 mg TID VIN Administration Guaifenesin 600 mg 10/17/24 23:38 10/18/24 09:42 Guaifenesin 12 Hr 600 Mg Tabcr PO 600 mg Q12H PRN Administration congestion Doxycycline Hyclate 100 mg/ 100 mls @ 100 mls/hr 10/18/24 04:00 10/21/24 05:16 Sodium Chloride IVPB Infused Q12H VIN Infusion Cefepime HCl 2 gm/ Sodium 50 mls @ 100 mls/hr 10/18/24 10:10 10/21/24 08:57 Chloride IVPB 100 mls/hr Q12HR VIN Administration Levothyroxine Sodium 150 mcg 10/18/24 06:30 10/21/24 06:30 Levothyroxine Sodium 150 Mcg Tablet PO 150 mcg DAILY@0630 VIN Administration Lidocaine 2 patch 10/19/24 21:00 10/20/24 21:43 Lidocaine 5% Patch TOPICAL 2 patch HS VIN Administration Loratadine 10 mg 10/17/24 23:38 Loratadine 10 Mg Tablet PO DAILY PRN allergy symptoms Montelukast Sodium 10 mg 10/18/24 09:00 10/21/24 08:58 Montelukast Sodium 10 Mg Tablet PO 10 mg DAILY VIN Administration Naloxone HCl 0.1 mg 10/19/24 13:20 Naloxone Hcl 0.4 Mg/Ml Vial IV PUSH Q5MIN PRN Opioid Reversal Nebivolol 10 mg 10/18/24 09:00 10/21/24 08:58 Nebivolol Hcl 5 Mg Tablet PO 10 mg DAILY VIN Administration Ondansetron HCl 4 mg 10/17/24 19:31 Ondansetron Hcl Odt 4 Mg Tablet PO Q6H PRN Nausea And Vomiting Pantoprazole Sodium 40 mg 10/18/24 09:00 10/21/24 08:58 Pantoprazole 40 Mg Tablet PO 40 mg Q12HR VIN Administration Polyethylene Glycol 17 gm 10/17/24 19:31 Polyethylene Glycol 3350 17 Gm Powd.Pack PO QAM PRN Constipation Potassium Chloride 10 meq 10/17/24 23:38 Potassium Chloride 10 Meq Er Tablet PO DAILY PRN with lasix Pravastatin Sodium 40 mg 10/18/24 09:00 10/21/24 08:58 Pravastatin Sodium 20 Mg Tablet PO 40 mg DAILY VIN Administration Spironolactone 25 mg 10/18/24 09:00 10/21/24 08:58 Spironolactone 25 Mg Tablet PO 25 mg DAILY VIN Administration Telmisartan 40 mg 10/18/24 09:00 10/21/24 08:58 Telmisartan 40 Mg Tablet PO 40 mg Q12HR VIN Administration Vitamin D 50 mcg 10/18/24 09:00 10/21/24 08:58 Cholecalciferol (Vitamin D3) 25 Mcg (1,000 Units) Tablet PO 50 mcg DAILY VIN Administration Radiology Results: ITS Impressions Head CT 10/17/24 12:34 IMPRESSION: 1. No acute intracranial hemorrhage. No mass effect. 2. Probable chronic ischemic white matter change. 3. Cerebral atrophy appropriate for the patient's age. Chest X-Ray 10/17/24 12:46 Impression: 1: Left basilar airspace disease may represent pneumonia or less likely asymmetric edema. Labs Labs: Laboratory Results - last 24 hr 10/17/24 10/21/24 20:02 04:39 WBC 7.3 RBC 3.15 L Hgb 9.6 L Hct 29.6 L MCV 94.0 MCH 30.5 MCHC 32.4 RDW 14.1 Plt Count 142 L MPV 10.9 H Sodium 131 L Potassium 4.0 Chloride 100 Carbon Dioxide 23 Anion Gap 8 BUN 13 Creatinine 0.79 Estim Creat Clear Calc 53 Estimated GFR > 60 Glucose 99 Serum Osmolality 276 L Calcium 9.5 Magnesium 1.6 Quality VTE Prophylaxis VTE prophylaxis: mechanical ordered
[2024-10-21] MEDS: LIDOCAINE 5% PATCH 2 PATCH TOPICAL (20:51)
[2024-10-21] MEDS: DONEPEZIL HCL 5 MG TABLET PO (20:51)
[2024-10-22] VITALS (9 sets, daily range): BP systolic 136–150; BP diastolic 45–59; PULSE 60–74; RESP 16–20; TEMP 36.1–36.2; O2SAT 93–100
[2024-10-22 04:36] LABS: Hematocrit 31.1 % (37.0-47.0); Hemoglobin 10.0 g/dL (12.0-15.0); Mean Corpuscular HGB Conc 32.2 g/dl (32-36); Mean Corpuscular Hemoglobin 30.7 pg (26-34); Mean Corpuscular Volume 95.4 fl (80-100); Platelet Count Result 147 k/mm3 (150-375); Red Blood Count 3.26 M/mm3 (4.2-5.4); White Blood Count 6.3 K/mm3 (4.5-10.0)
[2024-10-22] MEDS: DOXYCYCLINE IV 100 MG in SODIUM CHLORIDE 0.9% IV 100 ML IVPB (04:46)
[2024-10-22 05:03] LABS: Anion Gap 7 mmol/L (4-12); Blood Urea Nitrogen 15 mg/dL (7-17); Calcium 9.8 mg/dL (8.4-10.2); Carbon Dioxide 24 mmol/L (22-30); Chloride 103 mmol/L (98-107); Estimated CRCL calculation 59 ml/min; Estimated Glomerular Filt Rate > 60; Glucose 98 mg/dL (65-110); Magnesium 1.8 mg/dL (1.6-2.3); Potassium 3.7 mmol/L (3.4-5.0); Sodium 134 mmol/L (137-145)
[2024-10-22] MEDS: LEVOTHYROXINE SODIUM 150 MCG TABLET PO (05:50)
[2024-10-22] MEDS: FLUTICASONE/UMECLIDIN/VILANTER 200-62.5-25 MCG ELLIPTA 1 PUFF INHALATION (08:57)
[2024-10-22] MEDS: PANTOPRAZOLE 40 MG TABLET PO ×2 (09:57→21:24)
[2024-10-22] MEDS: LORATADINE 10 MG TABLET PO (09:57)
[2024-10-22] MEDS: DOCUSATE SODIUM 100 MG CAPSULE PO ×2 (09:57→21:24)
[2024-10-22] MEDS: MONTELUKAST SODIUM 10 MG TABLET PO (09:57)
[2024-10-22] MEDS: SPIRONOLACTONE 25 MG TABLET PO (09:57)
[2024-10-22] MEDS: GABAPENTIN 300 MG CAPSULE PO ×3 (09:57→16:50)
[2024-10-22] MEDS: OMEGA 3 POLYUNSAT FATTY ACIDS 1 GM CAP PO (09:57)
[2024-10-22] MEDS: FOLIC ACID 1 MG TABLET PO (09:57)
[2024-10-22] MEDS: CHOLECALCIFEROL (VITAMIN D3) 25 MCG (1,000 UNITS) TABLET 50 MCG PO (09:57)
[2024-10-22] MEDS: ASPIRIN 81 MG ENTERIC TABLET PO (09:58)
[2024-10-22] MEDS: PRAVASTATIN SODIUM 20 MG TABLET 40 MG PO (09:58)
[2024-10-22] MEDS: NEBIVOLOL HCL 5 MG TABLET 10 MG PO (09:58)
[2024-10-22] MEDS: TELMISARTAN 40 MG TABLET PO ×2 (09:58→21:24)
[2024-10-22] MEDS: CEFEPIME 2 GM in SODIUM CHLORIDE 0.9% IV 50 ML 100 ML IVPB (09:59)
--- NOTE | 2024-10-22 14:00 | P.PNIM_ITS ---
Progress Note: A&P Assessment and Plan (1) Acute metabolic encephalopathy: Code(s): G93.41 - Metabolic encephalopathy Status: Acute Assessment and Plan: Patient able to answer orientation questions, however upon further investigation and during her interview she continuously demonstrated agitation and confusion. Initially precipitated by a UTI which has since been treated and UA currently appears unremarkable. Further workup in the emergency department revealed a new/acute hyponatremia and possible pneumonia. See sections below. Head CT negative. History of hypothyroidism, TSH within normal limits. Patient has additionally made suicidal and homicidal statements since becoming confused (however appear to be in a joking manner) that were given more weight due to patient attempting to self-harm by cutting her wrist with her fingernails, will place on suicide precautions until encephalopathy/confusion improved. Once patient is medically cleared, will need re-evaluation. Monitor confusion and agitation. (2) Acute hyponatremia: Code(s): E87.1 - Hypo-osmolality and hyponatremia Status: Acute Assessment and Plan: - Na 126 - check serum osmolality, urine osmolality, urine sodium, protein to creatinine ratio, urine creatinine - IV fluids: 1L bolus -> 100 mL/hr x1L - trend renal function - monitor neurological status Suspect drop in sodium secondary to poor p.o. intake as the patient has been intermittently confused and agitated over the last few days. No nausea, vomiting, diarrhea noted by patient. (3) Community acquired pneumonia: Qualifiers: Laterality: unspecified laterality Qualified Code(s): J18.9 - Pneumonia, unspecified organism Code(s): J18.9 - Pneumonia, unspecified organism Status: Acute Assessment and Plan: - CXR: Left basilar airspace disease may represent pneumonia or less likely asymmetric edema. - started on ceftriaxone and doxycycline IV on 10/17 - check MRSA PCR and sputum culture (if obtainable) - supportive care - currently on baseline supplemental O2 requirement - 2L NC (4) Hypothyroidism: Qualifiers: Hypothyroidism type: acquired Qualified Code(s): E03.9 - Hypothyroidism, unspecified Code(s): E03.9 - Hypothyroidism, unspecified Status: Acute Assessment and Plan: - TSH 0.713 - continue home Synthroid (5) Hypoxemic respiratory failure, chronic: Code(s): J96.11 - Chronic respiratory failure with hypoxia Status: Acute Assessment and Plan: - no worsening hypoxia. on baseline requirement, 2L NC. (6) Hypertension: Qualifiers: Hypertension type: primary hypertension Qualified Code(s): I10 - Essential (primary) hypertension Code(s): I10 - Essential (primary) hypertension Status: Chronic Assessment and Plan: - chronic, currently 180/71 - continue home medications - monitor (7) NBA on CPAP: Code(s): G47.33 - Obstructive sleep apnea (adult) (pediatric); Z99.89 - Dependence on other enabling machines and devices Status: Chronic Assessment and Plan: - continue home CPAP Plan Initially patient was admitted into ICU with concern for suicide, patient was evaluated and cleared that patient does not have intention to harm herself or anyone else, patient remains somewhat agitated suspect due to possibly hyponatremia and UTI, her sodium levels are trending up close to her baseline, patient was seen by psychiatrist and suspect hyponatremia is mild and chronic does not require any medication change and recommended to continue palxil as she has been taking for close to 20yrs, and her urine growing klebs aerogenes and being treated with cefepime, patient still has episodes of agitation and confusions on and off, better today but episodes are short, patient is clinically stable, her is present gave updates, patient is clinically stable, and her baseline, her wants to wait until tomorrow to take her home. will monitor. Diet: Regular GI Prophylaxis: n/a DVT Prophylaxis: SCDs IV fluids: 1L bolus -> 100 mL/hr x1L Lines/Tubes: Peripheral IV Code Status: Full code Subjective Date/time seen: 10/22/24 14:00 Interval history: Chief Complaint: Agitation H&P-Narrative: 79 y/o F with PMH of COPD, depression, anxiety, Genevieve's thyroiditis, migraines, seronegative collagen disorder, squamous cell carcinoma, supplemental oxygen dependent, hypertension, fibromyalgia and CHF presents here with agitation. The patient presents here from [facility] via EMS for further evaluation of agitation. The patient was initially disorientated earlier this week which was accompanied by agitation/aggression. She was evalua owen on 10/12 for these symptoms and found to have a UTI. At that time the patient and her were comfortable with her going home and she was treated with Keflex. She is now returning today, 10/17, for re-evaluation. Initially the patient's reports she was improving but became combative again. Patient making statements that she would kill herself and her . Patient also attempted to hurt herself by scratching her wrist with her fingernail. When asked to further elaborate on these statements she reports she and her have not been intimate for some time and that was the reason she was citing suicide and divorce. Per , the patient has never displayed any of these behaviors prior to the UTI she experienced on Tuesday (10/12). She does have some mild dementia which he noted effects her short term memory, but has not caused any behavioral issues. Initial VS at presentation: 99.1? F, HR 60, R 18, 182/75, and 99% on 2L nasal cannula. ED workup showed: No leukocytosis, hemoglobin 10.9 (10.4 on 10/12), sodium 126 (133 on 10/12), TSH within normal limits, and UA unremarkable. UDS, ethanol, COVID negative. Head CT showed no acute intracranial hemorrhage, no mass effect, probable chronic ischemic white matter change, and cerebral atrophy appropriate for patient's age. CXR showed a left basilar airspace disease which may represent pneumonia or less likely asymmetric edema. Initially patient was admitted into ICU with concern for suicide, patient was evaluated and cleared that patient does not have intention to harm herself or anyone else, patient remains somewhat agitated suspect due to possibly hyponatremia and UTI, her sodium levels are trending up close to her baseline, patient was seen by psychiatrist and suspect hyponatremia is mild and chronic does not require any medication change and recommended to continue palxil as she has been taking for close to 20yrs, and her urine growing klebs aerogenes and being treated with cefepime, patient still has episodes of agitation and confusions on and off, better today but episodes are short, patient is clinically stable, her is present gave updates, patient is clinically stable, and her baseline, her wants to wait until tomorrow to take her home. will monitor. Review of Systems Review of Systems: All systems reviewed & are unremarkable except as noted in HPI and below Exam Narrative: Patient is comfortable, NAD HEENT: eyes are clear and none icteric LUNGS:CTA HEART: RR S1S2 ABD: BS+, Soft and nontender Lower extremities: no edema SKIN: nonjaundiced Neuro: grossly intact. Objective Data Vital Signs Vital Signs: Vital Signs - 24 hr 10/21/24 14:17 10/21/24 20:06 10/21/24 20:50 Temperature 36.8 C 36.6 C Pulse Rate 68 65 Respiratory Rate 20 20 Blood Pressure 127/76 140/66 Pulse Oximetry 97 90 94 Oxygen Delivery Nasal Cannula Oxygen Flow Rate 2 10/21/24 21:55 10/22/24 00:30 10/22/24 05:43 Temperature 36.1 C L Pulse Rate 74 62 Respiratory Rate 20 Blood Pressure 136/50 L Pulse Oximetry 96 96 96 Oxygen Delivery Nasal Cannula Autopap Oxygen Flow Rate 2 10/22/24 07:50 10/22/24 09:01 10/22/24 09:01 Temperature Pulse Rate 68 64 Respiratory Rate 16 16 Blood Pressure Pulse Oximetry 98 98 Oxygen Delivery Nasal Cannula Nasal Cannula Oxygen Flow Rate 2 2 10/22/24 09:58 10/22/24 13:31 Temperature 36.2 C L Pulse Rate 68 63 Respiratory Rate 20 Blood Pressure 150/59 H Pulse Oximetry 99 Oxygen Delivery Oxygen Flow Rate Intake/Output Intake/Output: Intake & Output 10/19/24 10/20/24 10/21/24 10/22/24 23:59 23:59 23:59 23:59 Intake Total 1100 2020 1260 760 Output Total 2150 2150 1300 850 [facility] -1050 -130 -40 -90 Meds/Results Medications: Active Medications Generic Name Dose Route Start Last Admin Trade Name Freq PRN Reason Stop Dose Admin Acetaminophen 650 mg 10/17/24 19:31 10/20/24 12:55 Acetaminophen 325 Mg Tablet PO 650 mg Q6H PRN Administration Mild Pain (1-3) or Fever Albuterol 1 - 2 puff 10/17/24 23:38 Albuterol Sulfate (*Sp) Aerosol 1 Puff INHALATION Q4HRT PRN shortness of breath or wheezing Albuterol/Ipratropium 3 ml 10/17/24 19:29 10/20/24 07:36 Ipratropium 0.5 Mg/Albuterol Sulfate 2.5 Mg Ampul.Neb 3 Ml INHALATION 3 ml Q6HRT PRN Administration Shortness Of Breath Or Wheezing Amlodipine Besylate 10 mg 10/18/24 09:00 10/22/24 09:58 Amlodipine Besylate 10 Mg Tablet PO 10 mg DAILY VIN Administration Amoxicillin/Clavulanate Potassium 1 tablet 10/22/24 21:00 Amoxicillin/Clavulanate K 875-125 Mg Tab PO 10/24/24 21:01 Q12HR VIN Aspirin 81 mg 10/18/24 09:00 10/22/24 09:58 Aspirin 81 Mg Enteric Tablet PO 81 mg QAM VIN Administration Bacitracin 1 applic 10/17/24 23:38 Bacitracin Ointment 15 Gm Tube TOPICAL BID PRN unknown Benzonatate 100 mg 10/17/24 19:23 10/18/24 09:42 Benzonatate 100 Mg Capsule PO 100 mg TID PRN Administration Cough Diclofenac Sodium 1 applic 10/17/24 23:38 10/21/24 09:00 Diclofenac Sodium 1% 100 Gm Gel (*Bk) TOPICAL 1 applic QID PRN Administration Pain Docusate Sodium 100 mg 10/18/24 09:00 10/22/24 09:57 Docusate Sodium 100 Mg Capsule PO 100 mg Q12HR VIN Administration Donepezil HCl 5 mg 10/18/24 21:00 10/21/24 20:51 Donepezil Hcl 5 Mg Tablet PO 5 mg QHS VIN Administration Fish Oil 1 gm 10/18/24 09:00 10/22/24 09:57 [place] 3 Polyunsat Fatty Acids 1 Gm Cap PO 1 gm QAM VIN Administration Fluoxetine HCl 20 mg 10/18/24 06:00 10/22/24 13:07 Fluoxetine Hcl 20 Mg Capsule PO 20 mg Q8HR VIN Administration Fluticasone/Umeclidinium/Vilanterol 1 puff 10/18/24 08:00 10/22/24 08:57 Fluticasone/Umeclidin/Vilanter 200-62.5-25 Mcg Ellipta INHALATION 1 puff DAILYRT VIN Administration Folic Acid 1 mg 10/18/24 09:00 10/22/24 09:57 Folic Acid 1 Mg Tablet PO 1 mg DAILY VIN Administration Furosemide 20 mg 10/17/24 23:38 Furosemide 20 Mg Tablet PO QPM PRN weight gain Gabapentin 300 mg 10/18/24 09:00 10/22/24 13:07 Gabapentin 300 Mg Capsule PO 300 mg TID VIN Administration Guaifenesin 600 mg 10/17/24 23:38 10/18/24 09:42 Guaifenesin 12 Hr 600 Mg Tabcr PO 600 mg Q12H PRN Administration congestion Levothyroxine Sodium 150 mcg 10/18/24 06:30 10/22/24 05:50 Levothyroxine Sodium 150 Mcg Tablet PO 150 mcg DAILY@0630 VIN Administration Lidocaine 2 patch 10/19/24 21:00 10/21/24 20:51 Lidocaine 5% Patch TOPICAL 2 patch HS VIN Administration Loratadine 10 mg 10/17/24 23:38 10/22/24 09:57 Loratadine 10 Mg Tablet PO 10 mg DAILY PRN Administration allergy symptoms Montelukast Sodium 10 mg 10/18/24 09:00 10/22/24 09:57 Montelukast Sodium 10 Mg Tablet PO 10 mg DAILY VNI Administration Naloxone HCl 0.1 mg 10/19/24 13:20 Naloxone Hcl 0.4 Mg/Ml Vial IV PUSH Q5MIN PRN Opioid Reversal Nebivolol 10 mg 10/18/24 09:00 10/22/24 09:58 Nebivolol Hcl 5 Mg Tablet PO 10 mg DAILY VIN Administration Ondansetron HCl 4 mg 10/17/24 19:31 Ondansetron Hcl Odt 4 Mg Tablet PO Q6H PRN Nausea And Vomiting Pantoprazole Sodium 40 mg 10/18/24 09:00 10/22/24 09:57 Pantoprazole 40 Mg Tablet PO 40 mg Q12HR VIN Administration Polyethylene Glycol 17 gm 10/17/24 19:31 Polyethylene Glycol 3350 17 Gm Powd.Pack PO QAM PRN Constipation Potassium Chloride 10 meq 10/17/24 23:38 Potassium Chloride 10 Meq Er Tablet PO DAILY PRN with lasix Pravastatin Sodium 40 mg 10/18/24 09:00 10/22/24 09:58 Pravastatin Sodium 20 Mg Tablet PO 40 mg DAILY VIN Administration Spironolactone 25 mg 10/18/24 09:00 10/22/24 09:57 Spironolactone 25 Mg Tablet PO 25 mg DAILY VIN Administration Telmisartan 40 mg 10/18/24 09:00 10/22/24 09:58 Telmisartan 40 Mg Tablet PO 40 mg Q12HR VIN Administration Vitamin D 50 mcg 10/18/24 09:00 10/22/24 09:57 Cholecalciferol (Vitamin D3) 25 Mcg (1,000 Units) Tablet PO 50 mcg DAILY VIN Administration Radiology Results: ITS Impressions Head CT 10/17/24 12:34 IMPRESSION: 1. No acute intracranial hemorrhage. No mass effect. 2. Probable chronic ischemic white matter change. 3. Cerebral atrophy appropriate for the patient's age. Chest X-Ray 10/17/24 12:46 Impression: 1: Left basilar airspace disease may represent pneumonia or less likely asymmetric edema. Labs Labs: Laboratory Results - last 24 hr 10/22/24 03:48 WBC 6.3 RBC 3.26 L Hgb 10.0 L Hct 31.1 L MCV 95.4 MCH 30.7 MCHC 32.2 RDW 14.0 Plt Count 147 L MPV 11.2 H Sodium 134 L Potassium 3.7 Chloride 103 Carbon Dioxide 24 Anion Gap 7 BUN 15 Creatinine 0.70 Estim Creat Clear Calc 59 Estimated GFR > 60 Glucose 98 Calcium 9.8 Magnesium 1.8 Quality VTE Prophylaxis VTE prophylaxis: mechanical ordered
[2024-10-22] MEDS: ACETAMINOPHEN 325 MG TABLET 650 MG PO (14:53)
[2024-10-22] MEDS: DONEPEZIL HCL 5 MG TABLET PO (21:24)
[2024-10-23] VITALS (7 sets, daily range): BP systolic 137–165; BP diastolic 60–70; PULSE 77–93; RESP 16–23; TEMP 36.8–37.2; O2SAT 92–96
[2024-10-23 05:15] LABS: Hematocrit 33.1 % (37.0-47.0); Hemoglobin 10.4 g/dL (12.0-15.0); Mean Corpuscular HGB Conc 31.4 g/dl (32-36); Mean Corpuscular Hemoglobin 30.6 pg (26-34); Mean Corpuscular Volume 97.4 fl (80-100); Platelet Count Result 165 k/mm3 (150-375); Red Blood Count 3.40 M/mm3 (4.2-5.4); White Blood Count 5.5 K/mm3 (4.5-10.0)
[2024-10-23 05:55] LABS: Anion Gap 10 mmol/L (4-12); Blood Urea Nitrogen 12 mg/dL (7-17); Calcium 9.9 mg/dL (8.4-10.2); Carbon Dioxide 20 mmol/L (22-30); Chloride 104 mmol/L (98-107); Estimated CRCL calculation 60 ml/min; Estimated Glomerular Filt Rate > 60; Glucose 104 mg/dL (65-110); Magnesium 1.8 mg/dL (1.6-2.3); Potassium 4.5 mmol/L (3.4-5.0); Sodium 134 mmol/L (137-145)
--- NOTE | 2024-10-23 07:23 | PC.NURSE ---
pt became increasingly violent hitting, kicking, biting anyone who comes near her. Multiple staff including the RN placed the pt back in bed. Pt then began to wrap the oxygen tubing around her neck in an attempt to strangle herself saying I want to , I want to . The charge nurse was notified and a felipe laird was called for assistance. Transfer orders were obtained and Pt was taken to ICU room 7. Report was given Herminia OCONNOR.
[2024-10-23] MEDS: PRAVASTATIN SODIUM 20 MG TABLET 40 MG PO (10:18)
[2024-10-23] MEDS: CHOLECALCIFEROL (VITAMIN D3) 25 MCG (1,000 UNITS) TABLET 50 MCG PO (10:18)
[2024-10-23] MEDS: MONTELUKAST SODIUM 10 MG TABLET PO (10:19)
[2024-10-23] MEDS: OMEGA 3 POLYUNSAT FATTY ACIDS 1 GM CAP PO (10:19)
[2024-10-23] MEDS: NEBIVOLOL HCL 5 MG TABLET 10 MG PO (10:19)
[2024-10-23] MEDS: PANTOPRAZOLE 40 MG TABLET PO ×2 (10:19→20:23)
[2024-10-23] MEDS: ASPIRIN 81 MG ENTERIC TABLET PO (10:19)
[2024-10-23] MEDS: GABAPENTIN 300 MG CAPSULE PO ×3 (10:19→18:23)
[2024-10-23] MEDS: SPIRONOLACTONE 25 MG TABLET PO (10:19)
[2024-10-23] MEDS: TELMISARTAN 40 MG TABLET PO ×2 (10:19→20:23)
[2024-10-23] MEDS: DOCUSATE SODIUM 100 MG CAPSULE PO ×2 (10:19→20:22)
[2024-10-23] MEDS: FOLIC ACID 1 MG TABLET PO (10:20)
--- NOTE | 2024-10-23 11:18 | PM.DS ---
DS: Summary Time Spent with Patient Time attestation: Total time spent providing and/or coordinating discharge services: DS: Data Data Completed and Pending Labs on day of discharge: Labs from last 24 hours 10/23/24 04:25 WBC 5.5 RBC 3.40 L Hgb 10.4 L Hct 33.1 L MCV 97.4 MCH 30.6 MCHC 31.4 L RDW 14.0 Plt Count 165 MPV 11.5 H Sodium 134 L Potassium 4.5 Chloride 104 Carbon Dioxide 20 L Anion Gap 10 BUN 12 Creatinine 0.69 L Estim Creat Clear Calc 60 Estimated GFR > 60 Glucose 104 Calcium 9.9 Magnesium 1.8 Preliminary micro results at discharge 10/17/24 14:31 Blood Culture - Preliminary Blood 10/17/24 15:03 Blood Culture - Preliminary Blood Discharge Plan Discharge Consulting providers: Troy Murphy Patient Language: Canadian Follow-up/Referrals: Naseem Ayoub, BAG PATCHER [Advanced Practice Nurse, Psychiatry] Discharge Medications: No Action docusate sodium 100 mg capsule 100 mg PO BID telmisartan 40 mg tablet 40 mg PO BID diclofenac sodium [Arthritis Pain (diclofenac)] 1 % gel 4 g topical QID PRN (Reason: Pain) Rx Instructions: apply to single knee, ankle, foot; for foot includes sole/toes/top of foot spironolactone 25 mg tablet 25 mg PO DAILY albuterol sulfate 2.5 mg /3 mL (0.083 %) solution for nebulization 2.5 mg inhalation Q6-8H PRN (Reason: shortness of breath or wheezing) naloxone 4 mg/actuation spray,non-aerosol 4 mg intranasal Q2-3M PRN (Reason: opioid overdose) Qty: 2 1RF Rx Instructions: spray 1 dose into ONE nostril; repeat every 2-3 minutes until responsive, alternating nostrils w each dose until help arrives albuterol sulfate 90 mcg/actuation HFA aerosol inhaler 1 - 2 puff inhalation Q4-6H PRN (Reason: shortness of breath or wheezing) Qty: 25.5 3RF (DME) oxygen 0 .ROUTE .MEDSUPPLY Patient Comments: 2L (DME) CPAP 0 .ROUTE .MEDSUPPLY (DME) Pain Pump See Rx Instructions .ROUTE .MEDSUPPLY Patient Comments: prescribed by pain management Rx Instructions: Primary: Hydromorphone 125.0mcg/mL Secondary: Clonidine 200.0mcg/mL,Bupivacaine 5,000mcg/mL potassium chloride [Klor-Con 10] 10 mEq tablet extended release 10 meq PO DAILY PRN (Reason: with lasix) Patient Comments: take only when taking Lasix furosemide [Lasix] 20 mg tablet 20 mg PO QPM PRN (Reason: weight gain) loratadine [Claritin] 10 mg tablet 10 mg PO DAILY PRN (Reason: allergy symptoms) guaifenesin [Mucinex] 600 mg tablet extended release 12hr 600 mg PO Q12H PRN (Reason: congestion) bacitracin 500 unit/gram ointment 1 applic topical BID PRN (Reason: dry nose) cephalexin 500 mg capsule 500 mg PO Q8H 7 Days Qty: 21 0RF Patient Comments: Last scheduled day this Tuesday aspirin 81 mg capsule 81 mg PO DAILY Gemtesa 75 mg tablet 75 mg PO DAILY cholecalciferol (vitamin D3) 50 mcg (2,000 unit) capsule 2,000 unit PO DAILY [place]-3 350 mg-235 mg- 90 mg-597 mg capsule,delayed release(DR/EC) 1 cap PO DAILY Trelegy Ellipta 200-62.5-25 mcg blister with device 1 inh inhalation DAILY Qty: 180 3RF Rx Instructions: Rinse mouth and spit after each use lidocaine 5 % adhesive patch,medicated See Rx Instructions .ROUTE .COMPLEX Qty: 90 3RF Dose Instruction: APPLY 1 PATCH TO LOW BACK FOR 12 HOURS PER DAY Rx Instructions: APPLY 1 PATCH TO LOW BACK FOR 12 HOURS PER DAY amlodipine 10 mg tablet 10 mg PO DAILY Qty: 90 1RF donepezil 5 mg tablet 5 mg PO QHS Qty: 90 1RF fluoxetine 20 mg capsule 20 mg PO TID Qty: 270 1RF gabapentin 300 mg capsule 300 mg PO TID Qty: 270 1RF montelukast 10 mg tablet 10 mg PO DAILY Qty: 90 1RF pantoprazole 40 mg tablet,delayed release (DR/EC) 40 mg PO BID Qty: 180 1RF pravastatin 40 mg tablet 40 mg PO DAILY Qty: 90 1RF levothyroxine [Synthroid] 150 mcg tablet 150 mcg PO DAILY Qty: 90 1RF nebivolol [Bystolic] 10 mg tablet 10 mg PO DAILY Qty: 90 1RF folic acid 1 mg tablet 1 mg PO DAILY Qty: 90 1RF Date of admission: 10/17/24 14:07 Primary Care Provider: Kristofer Key Admitting Provider: Brenden Cadena Attending physician on admission: Brenden Cadena Condition: Stable
[2024-10-23] MEDS: LIDOCAINE 5% PATCH 2 PATCH TOPICAL (20:22)
[2024-10-23] MEDS: DONEPEZIL HCL 5 MG TABLET PO (20:22)
[2024-10-24] VITALS (10 sets, daily range): BP systolic 126–155; BP diastolic 55–72; PULSE 57–80; RESP 14–22; TEMP 36.4–37.1; O2SAT 92–99
[2024-10-24 04:17] LABS: Hematocrit 30.2 % (37.0-47.0); Hemoglobin 9.7 g/dL (12.0-15.0); Mean Corpuscular HGB Conc 32.1 g/dl (32-36); Mean Corpuscular Hemoglobin 30.3 pg (26-34); Mean Corpuscular Volume 94.4 fl (80-100); Platelet Count Result 156 k/mm3 (150-375); Red Blood Count 3.20 M/mm3 (4.2-5.4); White Blood Count 6.6 K/mm3 (4.5-10.0)
[2024-10-24 04:31] LABS: Anion Gap 6 mmol/L (4-12); Blood Urea Nitrogen 13 mg/dL (7-17); Calcium 9.7 mg/dL (8.4-10.2); Carbon Dioxide 24 mmol/L (22-30); Chloride 103 mmol/L (98-107); Estimated CRCL calculation 60 ml/min; Estimated Glomerular Filt Rate > 60; Glucose 102 mg/dL (65-110); Magnesium 1.6 mg/dL (1.6-2.3); Potassium 3.8 mmol/L (3.4-5.0); Sodium 133 mmol/L (137-145)
[2024-10-24] MEDS: LEVOTHYROXINE SODIUM 150 MCG TABLET PO (06:00)
[2024-10-24] MEDS: FLUTICASONE/UMECLIDIN/VILANTER 200-62.5-25 MCG ELLIPTA 1 PUFF INHALATION (08:42)
[2024-10-24] MEDS: FOLIC ACID 1 MG TABLET PO (08:54)
[2024-10-24] MEDS: DOCUSATE SODIUM 100 MG CAPSULE PO ×2 (08:54→20:04)
[2024-10-24] MEDS: SPIRONOLACTONE 25 MG TABLET PO (08:54)
[2024-10-24] MEDS: TELMISARTAN 40 MG TABLET PO ×2 (08:54→20:04)
[2024-10-24] MEDS: CHOLECALCIFEROL (VITAMIN D3) 25 MCG (1,000 UNITS) TABLET 50 MCG PO (08:54)
[2024-10-24] MEDS: GABAPENTIN 300 MG CAPSULE PO ×3 (08:54→16:53)
[2024-10-24] MEDS: PANTOPRAZOLE 40 MG TABLET PO ×2 (08:54→20:03)
[2024-10-24] MEDS: POTASSIUM CHLORIDE 20 MEQ PACKET (FOR LIQUID) PO (08:54)
[2024-10-24] MEDS: OMEGA 3 POLYUNSAT FATTY ACIDS 1 GM CAP PO (08:55)
[2024-10-24] MEDS: BENZONATATE 100 MG CAPSULE PO (08:55)
[2024-10-24] MEDS: MONTELUKAST SODIUM 10 MG TABLET PO (08:55)
[2024-10-24] MEDS: NEBIVOLOL HCL 5 MG TABLET 10 MG PO (08:55)
[2024-10-24] MEDS: ASPIRIN 81 MG ENTERIC TABLET PO (08:55)
[2024-10-24] MEDS: PRAVASTATIN SODIUM 20 MG TABLET 40 MG PO (08:55)
--- NOTE | 2024-10-24 09:14 | P.PNIM_ITS ---
Progress Note: A&P Assessment and Plan (1) Depression with anxiety: Code(s): F41.8 - Other specified anxiety disorders Status: Acute Assessment and Plan: Patient was diagnosed with depression anxiety and also appears to have dementia. She is currently on Prozac and Aricept. Patient has mentioned multiple times suicidal ideation and was initially placed on suicidal precautions but later cleared and transferred to floor. On 10/23 morning patient tried to kill herself by wrapping the oxygen tubing around her neck. As per patient's nurse on the floor patient was increasingly violent hitting, kicking, biting anyone who comes near her. Multiple staff including the RN placed the pt back in bed. Pt then began to wrap the oxygen tubing around her neck in an attempt to strangle herself saying I want to , I want to . The charge nurse was notified and a felipe laird was called for assistance. Transfer orders were obtained and Pt was taken to ICU room Patient was transferred back to a monitored room and was placed under suicide precautions. She has one-to-one sitter. Mobility Engineer and asbestos worker is at this time trying to find inpatient psych placement for this patient. Patient is otherwise ready to be discharged depending on her Swallow evaluate result and once a bed is obtained. She will continue treatment for pneumonia in the form of p.o. antibiotics along with her chronic medications for hypertension COPD hypothyroidism (2) Acute metabolic encephalopathy: Code(s): G93.41 - Metabolic encephalopathy Status: Acute Assessment and Plan: Overall improved. UTI and pneumonia is being treated Sodium has improved although not normalized Head CT negative History of hypothyroidism, TSH within normal limits. Patient has additionally made suicidal and homicidal statements since becoming confused (however appear to be in a joking manner) that were given more weight due to patient attempting to self-harm by cutting her wrist with her fingernails, will place on suicide precautions until encephalopathy/confusion improved. Once patient is medically cleared, will need re-evaluation. Monitor confusion and agitation. (3) Acute hyponatremia: Code(s): E87.1 - Hypo-osmolality and hyponatremia Status: Acute Assessment and Plan: Sodium improved to133 DC Lasix Off IV fluids now Monitor Suspect drop in sodium secondary to poor p.o. intake and diuretic (4) Community acquired pneumonia: Qualifiers: Laterality: unspecified laterality Qualified Code(s): J18.9 - Pneumonia, unspecified organism Code(s): J18.9 - Pneumonia, unspecified organism Status: Acute Assessment and Plan: CXR: Left basilar airspace disease may represent pneumonia or less likely asymmetric edema. Patient was started on ceftriaxone and doxycycline IV on 10/17 and has been switched to p.o. Augmentin. Afebrile with normal WBC she is on supplemental oxygen Negative MRSA PCR and sputum culture supportive care currently on baseline supplemental O2 requirement - 2L NC (5) Hypothyroidism: Qualifiers: Hypothyroidism type: acquired Qualified Code(s): E03.9 - Hypothyroidism, unspecified Code(s): E03.9 - Hypothyroidism, unspecified Status: Acute Assessment and Plan: - TSH 0.713 - continue home Synthroid (6) Hypoxemic respiratory failure, chronic: Code(s): J96.11 - Chronic respiratory failure with hypoxia Status: Acute Assessment and Plan: on baseline requirement, 2L NC. (7) Hypertension: Qualifiers: Hypertension type: primary hypertension Qualified Code(s): I10 - Esse ntial (primary) hypertension Code(s): I10 - Essential (primary) hypertension Status: Chronic Assessment and Plan: - continue home medications - monitor (8) NAB on CPAP: Code(s): G47.33 - Obstructive sleep apnea (adult) (pediatric); Z99.89 - Dependence on other enabling machines and devices Status: Chronic Assessment and Plan: - continue home CPAP Plan Diet: Regular swallow eval was ordered GI Prophylaxis: n/a DVT Prophylaxis: SCDs Lines/Tubes: Peripheral IV Code Status: Full code Subjective Date/time seen: 10/24/24 Patient appears calm at this time. Her is with her. She denies any new complaint. She states she slept okay. She is wondering when she to be discharged. She asked for pneumonia is getting better. Patient denies fever, chest pain, shortness of breath, cough, nausea vomiting, abdominal pain,, diarrhea, headache or constipation. All other systems were reviewed and were negative Interval history: 79 y/o F with PMH of COPD, depression, anxiety, Genevieve's thyroiditis, migraines, seronegative collagen disorder, squamous cell carcinoma, supplemental oxygen dependent, hypertension, fibromyalgia and CHF presents here with agitation. Review of Systems Review of Systems: All systems reviewed & are unremarkable except as noted in HPI and below Exam Narrative: Patient is comfortable, NAD HEENT: eyes are clear and none icteric LUNGS:CTA HEART: RR S1S2 ABD: BS+, Soft and nontender Lower extremities: no edema SKIN: nonjaundiced Neuro: grossly intact move all 4 extremities, AO x2 Objective Data Vital Signs Vital Signs: Vital Signs - 24 hr 10/23/24 10:19 10/23/24 16:00 10/23/24 20:00 Temperature 36.8 C Pulse Rate 80 93 Respiratory Rate 16 Blood Pressure 165/70 H Pulse Oximetry 92 96 Oxygen Delivery Nasal Cannula Oxygen Flow Rate 2 10/23/24 21:05 10/23/24 22:00 10/23/24 22:23 Temperature 37.2 C Pulse Rate 80 77 Respiratory Rate 22 H 23 H Blood Pressure 137/60 Pulse Oximetry 96 95 95 Oxygen Delivery Nasal Cannula Autopap Oxygen Flow Rate 2 10/24/24 05:53 10/24/24 07:21 10/24/24 08:43 Temperature 36.6 C 37.1 C Pulse Rate 62 60 70 Respiratory Rate 18 22 H 18 Blood Pressure 146/59 H 155/72 H Pulse Oximetry 95 95 Oxygen Delivery Oxygen Flow Rate 10/24/24 08:55 Temperature Pulse Rate 80 Respiratory Rate Blood Pressure Pulse Oximetry Oxygen Delivery Oxygen Flow Rate Intake/Output Intake/Output: Intake & Output 10/21/24 10/22/24 10/23/24 10/24/24 23:59 23:59 23:59 23:59 Intake Total 1260 2000 840 956 Output Total 1300 1450 600 400 Balance -40 550 240 556 Meds/Results Medications: Active Medications Generic Name Dose Route Start Last Admin Trade Name Freq PRN Reason Stop Dose Admin Acetaminophen 650 mg 10/17/24 19:31 10/22/24 14:53 Acetaminophen 325 Mg Tablet PO 650 mg Q6H PRN Administration Mild Pain (1-3) or Fever Albuterol 1 - 2 puff 10/17/24 23:38 Albuterol Sulfate (*Sp) Aerosol 1 Puff INHALATION Q4HRT PRN shortness of breath or wheezing Albuterol/Ipratropium 3 ml 10/17/24 19:29 10/20/24 07:36 Ipratropium 0.5 Mg/Albuterol Sulfate 2.5 Mg Ampul.Neb 3 Ml INHALATION 3 ml Q6HRT PRN Administration Shortness Of Breath Or Wheezing Amlodipine Besylate 10 mg 10/18/24 09:00 10/24/24 08:55 Amlodipine Besylate 10 Mg Tablet PO 10 mg DAILY VIN Administration Amoxicillin/Clavulanate Potassium 1 tablet 10/22/24 21:00 10/24/24 08:54 Amoxicillin/Clavulanate K 875-125 Mg Tab PO 10/24/24 21:01 1 tablet Q12HR VIN Administration Aspirin 81 mg 10/18/24 09:00 10/24/24 08:55 Aspirin 81 Mg Enteric Tablet PO 81 mg QAM VIN Administration Bacitracin 1 applic 10/17/24 23:38 Bacitracin Ointment 15 Gm Tube TOPICAL BID PRN unknown Benzonatate 100 mg 10/17/24 19:23 10/24/24 08:55 Benzonatate 100 Mg Capsule PO 100 mg TID PRN Administration Cough Diclofenac Sodium 1 applic 10/17/24 23:38 10/21/24 09:00 Diclofenac Sodium 1% 100 Gm Gel (*[facility]) TOPICAL 1 applic QID PRN Administration Pain Docusate Sodium 100 mg 10/18/24 09:00 10/24/24 08:54 Docusate Sodium 100 Mg Capsule PO 100 mg Q12HR VIN Administration Donepezil HCl 5 mg 10/18/24 21:00 10/23/24 20:22 Donepezil Hcl 5 Mg Tablet PO 5 mg QHS VIN Administration Fish Oil 1 gm 10/18/24 09:00 10/24/24 08:55 [place] 3 Polyunsat Fatty Acids 1 Gm Cap PO 1 gm QAM VIN Administration Fluoxetine HCl 20 mg 10/18/24 06:00 10/24/24 06:00 Fluoxetine Hcl 20 Mg Capsule PO 20 mg Q8HR VIN Administration Fluticasone/Umeclidinium/Vilanterol 1 puff 10/18/24 08:00 10/24/24 08:42 Fluticasone/Umeclidin/Vilanter 200-62.5-25 Mcg Ellipta INHALATION 1 puff DAILYRT VIN Administration Folic Acid 1 mg 10/18/24 09:00 10/24/24 08:54 Folic Acid 1 Mg Tablet PO 1 mg DAILY VIN Administration Gabapentin 300 mg 10/18/24 09:00 10/24/24 08:54 Gabapentin 300 Mg Capsule PO 300 mg TID VIN Administration Guaifenesin 600 mg 10/17/24 23:38 10/18/24 09:42 Guaifenesin 12 Hr 600 Mg Tabcr PO 600 mg Q12H PRN Administration congestion Levothyroxine Sodium 150 mcg 10/18/24 06:30 10/24/24 06:00 Levothyroxine Sodium 150 Mcg Tablet PO 150 mcg DAILY@0630 VIN Administration Lidocaine 2 patch 10/19/24 21:00 10/23/24 20:22 Lidocaine 5% Patch TOPICAL 2 patch HS VIN Administration Loratadine 10 mg 10/17/24 23:38 10/22/24 09:57 Loratadine 10 Mg Tablet PO 10 mg DAILY PRN Administration allergy symptoms Magnesium Oxide 400 mg 10/24/24 09:11 Magnesium Oxide 400 Mg Tablet PO 10/24/24 09:12 ONCE ONE Montelukast Sodium 10 mg 10/18/24 09:00 10/24/24 08:55 Montelukast Sodium 10 Mg Tablet PO 10 mg DAILY VIN Administration Naloxone HCl 0.1 mg 10/19/24 13:20 Naloxone Hcl 0.4 Mg/Ml Vial IV PUSH Q5MIN PRN Opioid Reversal Nebivolol 10 mg 10/18/24 09:00 10/24/24 08:55 Nebivolol Hcl 5 Mg Tablet PO 10 mg DAILY VIN Administration Ondansetron HCl 4 mg 10/17/24 19:31 Ondansetron Hcl Odt 4 Mg Tablet PO Q6H PRN Nausea And Vomiting Pantoprazole Sodium 40 mg 10/18/24 09:00 10/24/24 08:54 Pantoprazole 40 Mg Tablet PO 40 mg Q12HR VIN Administration Polyethylene Glycol 17 gm 10/17/24 19:31 Polyethylene Glycol 3350 17 Gm Powd.Pack PO QAM PRN Constipation Potassium Chloride 10 meq 10/17/24 23:38 Potassium Chloride 10 Meq Er Tablet PO DAILY PRN with lasix Pravastatin Sodium 40 mg 10/18/24 09:00 10/24/24 08:55 Pravastatin Sodium 20 Mg Tablet PO 40 mg DAILY VIN Administration Spironolactone 25 mg 10/18/24 09:00 10/24/24 08:54 Spironolactone 25 Mg Tablet PO 25 mg DAILY VIN Administration Telmisartan 40 mg 10/18/24 09:00 10/24/24 08:54 Telmisartan 40 Mg Tablet PO 40 mg Q12HR VIN Administration Vitamin D 50 mcg 10/18/24 09:00 10/24/24 08:54 Cholecalciferol (Vitamin D3) 25 Mcg (1,000 Units) Tablet PO 50 mcg DAILY VIN Administration Radiology Results: ITS Impressions Head CT 10/17/24 12:34 IMPRESSION: 1. No acute intracranial hemorrhage. No mass effect. 2. Probable chronic ischemic white matter change. 3. Cerebral atrophy appropriate for the patient's age. Chest X-Ray 10/17/24 12:46 Impression: 1: Left basilar airspace disease may represent pneumonia or less likely asymmetric edema. Labs Labs: Laboratory Results - last 24 hr 10/24/24 03:54 WBC 6.6 RBC 3.20 L Hgb 9.7 L Hct 30.2 L MCV 94.4 MCH 30.3 MCHC 32.1 RDW 13.9 Plt Count 156 MPV 11.0 H Sodium 133 L Potassium 3.8 Chloride 103 Carbon Dioxide 24 Anion Gap 6 BUN 13 Creatinine 0.69 L Estim Creat Clear Calc 60 Estimated GFR > 60 Glucose 102 Calcium 9.7 Magnesium 1.6 Quality VTE Prophylaxis VTE prophylaxis: mechanical ordered
--- NOTE | 2024-10-24 09:35 | WPDCNPSYCH ---
Assessment and Plan Assessment and plan (1) Dementia: Qualifiers: Dementia type: unspecified type Dementia severity: mild Dementia behavioral or psychological symptom: without behavioral, psychotic, or mood disturbance or anxiety Qualified Code(s): F03.A0 - Unspecified dementia, mild, without behavioral disturbance, psychotic disturbance, mood disturbance, and anxiety Code(s): F03.90 - Unspecified dementia, unspecified severity, without behavioral disturbance, psychotic disturbance, mood disturbance, and anxiety Status: Acute (2) Delirium due to another medical condition: Code(s): F05 - Delirium due to known physiological condition Status: Acute Plan Patient continues to present with fluctuating, waxing and waning mental status accompanied by confusion and agitation. Suspect this is exacerbated by acute medical conditions on chronic dementia, unfamiliar environment. Suspect delirium to progressively improve in upcoming days. Recommend continuing ICU level monitoring with sitter for patient safety until delirium has subsided. Recommend utilizing quetiapine 12.5mg BID PRN for any agitation episodes, delirium precautions. Continue fluoxetine 20mg daily, aricept 5mg daily. Plan discussed with daughter and at bedside. Please do not hesitate to call or reconsult as needed. HPI Data of Consult Date/Time: 10/24/24 09:35 Requesting Physician: rBenden Cadena MD Primary Care Provider: Kristofer Key, Consult Narrative Narrative: Marialuisa Darden is a 79 year old female admitted on 10/17 due to confusion with agitation, hyponatremia, UTI. Psychiatry was initially consulted on 10/20 and no changes were made to treatment plan. UTI was initially diagnosed on 10/12 and treatment was started. Around this time, she started making suicidal and non-specific homicidal comments toward her , which reports is out of character for her. UTI has since resolved with treatment. Since this time, confusion and agitation appears to have worsened. Per reports, patient has made suicidal statements, subsequently wrapping her oxygen tubing around neck so was transferred to ICU and suicide precautions put in place. She was evaluated by Crisis Team and recommendation was made to admit involuntary to inpatient behavioral health for further management. She has a psychiatric history of depression and dementia, which she is currently prescribed fluoxetine 20mg daily and Aricept 5mg daily for chronic management. Depression has been longstanding since adolescence and is generally stable on current dose of fluoxetine. Additionally, she has a history of chronic hyponatremia, which has overall improved this admission. She was interviewed at bedside, accompanied by her daughter Barbie and Yandel. She was alert and oriented to person, place, time; unsure of what brought her into the hospital. She is calm and cooperative during interview today. Denies current suicidal or homicidal thoughts, however does not recall pervious episodes or statements that she had made. Per daughter, her mental status continues to fluctuate, she is not back to her baseline or normal self. Patient denies concerns with sleep or appetite. Review of Systems Psychiatric: Psychiatric: Reports behavioral changes and Reports confusion PMFSH Past Medical History Medical History Femur fracture, right Surgical screws Fracture, foot Right Metatarsal Anemia Undifferentiated connective tissue disease Depression with anxiety COPD (chronic obstructive pulmonary disease) NBA on CPAP Dementia History of ARDS Diastolic dysfunction History of nuclear stress test History of abnormal electrocardiogram Genevieve's thyroiditis Rosacea w/ ocular involvement Depression History of rectocele History of migraine headaches Spondylosis of cervical spine Arthralgia H/O antinuclear antibodies intermittent +ABRAM to 1:320 Vascular disorder seronegative collagen disorder History of squamous cell carcinoma History of staph infection Chronic left shoulder pain arthritis; possibly inflammatory Fracture, rib Aftercare following finger joint replacement surgery Thyroiditis Scoliosis History of left heart catheterization Tubal ligation evaluation Enlarged ureter Supplemental oxygen dependent Hypertension Fibromyalgia CHF (congestive heart failure) Surgical History Surgical History History of cataract extraction with lens replacement History of arthroplasty of knee Left History of removal of pigmented skin lesion Nose 2021 History of hysterectomy Total History of ERCP History of fusion of lumbar spine L2-L5 lumbar fusion Titanium History of laminectomy History of total knee replacement History of cholecystectomy 2002 History of tubal ligation History of D&C History of hip surgery right Total knee replacement status Previous back surgery S/P peroneal tendon repair History of surgical removal of ganglion cyst 1960 H/O hernia repair 1947 Family History Family History Unknown No problems noted. Mother Esophageal cancer Other Alcohol abuse Cancer Hypertension Social History Social History Social History: She lives with her and has 3 biologic children. She also has 1 adopted child. 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 She is a former smoker. Code status full code Smoking packs per day: 1 Smoking cigarettes per day: 20.0 Years smoked: 10 Smoking pack-years: 10.00 Smoking status: Former smoker Tobacco type: cigarettes Smoking end date: 11/23/81 Additional smoking assessment comments: quit 1982 Alcohol intake: current Alcohol use details: 0-1 per week Substance use: unknown Substance use type: does not use Other substance usage details: social occassions Do You Feel Safe in your Home?: Yes Lack of Transportation: No Lack of Food: Never True Current Housing: I Have Housing Concerned About Future Housing: No Difficulty Paying Gas/Electric Bills: No Difficulty Paying for Meds: No Currently Unemployed: No Education: Decline to Answer Difficulty w/ Childcare or Family Care: No Living arrangements: with family Additional living arrangements comments: [facility]. Occupation/Education: retired Gender identity (if verbalized by the patient): Female Spiritual care concerns: No Agree to blood products: Yes Meds Home Medications and Allergies Home Medications ?Medication ?Instructions ?Recorded ?Confirmed ?Type docusate sodium 100 mg capsule 100 mg PO BID 11/18/21 10/17/24 History diclofenac sodium 1 % topical gel 4 g topical QID PRN Pain 05/13/22 10/17/24 History (Arthritis Pain (diclofenac)) telmisartan 40 mg tablet 40 mg PO BID 05/13/22 10/17/24 History spironolactone 25 mg tablet 25 mg PO DAILY 06/15/22 10/17/24 History albuterol sulfate 2.5 mg/3 mL 2.5 mg inhalation Q6-8H PRN 12/28/22 10/17/24 History (0.083 %) solution for nebulization shortness of breath or wheezing naloxone 4 mg/actuation nasal spray 4 mg intranasal Q2-3M PRN opioid 03/22/23 10/17/24 Rx overdose #2 ea fluticasone fur. 200 mcg-umeclid 1 inh inhalation DAILY #180 ea 12/27/23 10/17/24 Rx 62.5 mcg-vilant 25 mcg inhalat.powder (Trelegy Ellipta) albuterol sulfate 90 mcg/actuation 1 - 2 puff inhalation Q4-6H PRN 02/21/24 10/17/24 Rx aerosol inhaler shortness of breath or wheezing #25.5 grams aspirin 81 mg capsule 81 mg PO DAILY 03/08/24 10/17/24 History cholecalciferol (vitamin D3) 50 2,000 unit PO DAILY 03/08/24 10/17/24 History mcg (2,000 unit) capsule omega 3 350 mg-dha 235 mg-epa 90 1 cap PO DAILY 03/08/24 10/17/24 History mg-fish oil 597 mg capsule,delay rel ([place]-3) vibegron 75 mg tablet (Gemtesa) 75 mg PO DAILY 03/08/24 10/17/24 History CPAP 05/21/24 10/17/24 History Pain Pump 05/21/24 10/17/24 History bacitracin 500 unit/gram topical 1 applic topical BID PRN dry nose 05/21/24 10/20/24 History ointment furosemide 20 mg tablet (Lasix) 20 mg PO QPM PRN weight gain 05/21/24 10/17/24 History guaifenesin 600 mg tablet, 600 mg PO Q12H PRN congestion 05/21/24 10/17/24 History extended release 12 hr (Mucinex) loratadine 10 mg tablet (Claritin) 10 mg PO DAILY PRN allergy symptoms 05/21/24 10/17/24 History oxygen 05/21/24 10/17/24 History potassium chloride 10 mEq 10 meq PO DAILY PRN with lasix 05/21/24 10/17/24 History tablet,extended release (Klor-Con) lidocaine 5 % topical patch See Rx Instructions .Route 07/23/24 10/17/24 Rx .COMPLEX #90 patches amlodipine 10 mg tablet 10 mg PO DAILY #90 tabs 08/27/24 10/17/24 Rx donepezil 5 mg tablet 5 mg PO QHS #90 tabs 08/27/24 10/17/24 Rx fluoxetine 20 mg capsule 20 mg PO TID #270 caps 08/27/24 10/17/24 Rx gabapentin 300 mg capsule 300 mg PO TID #270 caps 08/27/24 10/17/24 Rx montelukast 10 mg tablet 10 mg PO DAILY #90 tabs 08/27/24 10/17/24 Rx pantoprazole 40 mg tablet,delayed 40 mg PO BID #180 tabs 08/27/24 10/17/24 Rx release pravastatin 40 mg tablet 40 mg PO DAILY #90 tabs 08/27/24 10/17/24 Rx levothyroxine 150 mcg tablet 150 mcg PO DAILY #90 tabs 08/28/24 10/17/24 Rx (Synthroid) nebivolol 10 mg tablet (Bystolic) 10 mg PO DAILY #90 tabs 08/28/24 10/17/24 Rx folic acid 1 mg tablet 1 mg PO DAILY #90 tabs 09/03/24 10/17/24 Rx cephalexin 500 mg capsule 500 mg PO Q8H 7 days #21 caps 10/12/24 10/17/24 Rx Allergies Allergy/AdvReac Type Severity Reaction Status Date / Time clindamycin Allergy Severe Chills Verified 10/17/24 11:47 diazepam Allergy Severe suicidal Verified 10/17/24 11:47 ideation levofloxacin (From Levaquin) Allergy Intermediate Itching Verified 10/17/24 11:47 cat dander Allergy Unknown Sinusitis Verified 10/17/24 11:47 dog dander Allergy Unknown Sinusitis Verified 10/17/24 11:47 feathers Allergy Unknown Sinusitis Verified 10/17/24 11:47 grass pollen Allergy Unknown Sinusitis Verified 10/17/24 11:47 house dust Allergy Unknown Sinusitis Verified 10/17/24 11:47 Rabbit Allergy Unknown Sinusitis Verified 10/17/24 11:47 tree and shrub pollen Allergy Unknown Sinusitis Verified 10/17/24 11:47 adhesive tape Allergy Redness of Verified 10/17/24 11:47 Skin silicone Allergy Unknown Verified 10/17/24 11:47 meperidine (From Demerol) AdvReac Hallucinati Verified 10/17/24 11:47 ng oxycodone (From Percocet) AdvReac Nausea Verified 10/17/24 11:47 propoxyphene AdvReac Nausea and Verified 10/17/24 11:47 Vomiting Vital Signs Vital Signs - 24 hr 10/23/24 10:19 10/23/24 16:00 10/23/24 20:00 Temperature 98.3 F Pulse Rate 80 93 Respiratory Rate 16 Blood Pressure 165/70 H Pulse Oximetry 92 96 Oxygen Delivery Nasal Cannula Oxygen Flow Rate 2 10/23/24 21:05 10/23/24 22:00 10/23/24 22:23 Temperature 99.0 F Pulse Rate 80 77 Respiratory Rate 22 H 23 H Blood Pressure 137/60 Pulse Oximetry 96 95 95 Oxygen Delivery Nasal Cannula Autopap Oxygen Flow Rate 2 10/24/24 05:53 10/24/24 07:21 10/24/24 08:43 Temperature 97.8 F 98.7 F Pulse Rate 62 60 70 Respiratory Rate 18 22 H 18 Blood Pressure 146/59 H 155/72 H Pulse Oximetry 95 95 Oxygen Delivery Oxygen Flow Rate 10/24/24 08:55 Temperature Pulse Rate 80 Respiratory Rate Blood Pressure Pulse Oximetry Oxygen Delivery Oxygen Flow Rate Exam Psych: Appearance: grossly normal Mental Status: other (Fluctuating ) Speech and movement: Normal speech and movement present Affect: normal affect Attitude: cooperative Thought process: Tangential thought process present (redirectable ) Thought content: Yes Normal thought content present Insight: Poor insight present (Psych) Judgement: Poor judgement present (Psych) Results Labs 10/24/24 03:54 10/24/24 03:54 Labs: Short CBC 10/24/24 Range/Units 03:54 WBC 6.6 (4.5-10.0) K/mm3 Hgb 9.7 L (12.0-15.0) g/dL Hct 30.2 L (37.0-47.0) % Plt Count 156 (150-375) k/mm3 BMP 10/24/24 03:54 Sodium 133 L Potassium 3.8 Chloride 103 Carbon Dioxide 24 BUN 13 Creatinine 0.69 L Glucose 102 Calcium 9.7
[2024-10-24] MEDS: MAGNESIUM OXIDE 400 MG TABLET PO (11:22)
--- NOTE | 2024-10-24 12:56 | PCSTNOTE ---
Please refer to the Bedside Swallow Evaluation in the EMR. Please note, silent aspiration cannot be ruled out at bedside. Marialuisa presents today for concern with choking on meals. Orders were placed due to notable choking on breakfast this morning. The pt, RN and the pt?s daughter all report coughing and ?breathing in? her breakfast of eggs and aragon. The pt and her daughter also state that she has previously completed an MBS; however, it was multiple years ago. The RN stated that her previously reported that the MBS study did not show aspiration. The pt was cooperative this date and followed all directions presented. Throughout the evaluation, a sitter and the pt?s daughter were present at bedside. An oral mechanism exam was completed this date and was well WFL. PO trials included thin liquid (via tsp, cup edge (small sip, regular drink, and larger volume drink), and straw (small sip, 3 oz)) and pudding. The pt?s oral stage was well WFL and she demonstrated a timely swallow initiation across all trials. However, after 3oz straw drink the pt demonstrated a slightly delayed large coughing episode. A significant coughing was also noted after the bite of pudding. This could indicate penetration and/or aspiration. Due to these overt signs at the bedside and report of choking by family, the pt, and the RN, an MBS should be completed to investigate her swallow function further. Pt, pt?s daughter, RN (Ector) and (Veronica)?made aware of recommendations and results of evaluation. Pt and her daughter did not state any questions at this time. ? Recommendations: ? 1. Complete a Modified Barium Swallow study to further assess swallow function and make appropriate diet recommendations. ?
[2024-10-24] MEDS: ACETAMINOPHEN 325 MG TABLET 650 MG PO (15:12)
--- NOTE | 2024-10-24 16:22 | PCSTNOTE ---
Please refer to the Modified Barium Swallow Evaluation in the EMR. The patient is an 79 year old, female referred for an MBS study following BSE results completed this date. The patient was positioned in the lateral view and presented the following consistencies: 5cc/tsp thin liquid barium, cup trials thin liquid barium, 5cc tsp mildly thick liquid barium, pudding mixed with barium paste, and cracker coated with barium paste. Oral Stage: Timely oral preparation was viewed for 5cc/tsp thin liquid barium, cup trials thin liquid barium, 5cc/tsp mildly thick liquid barium, and pudding mixed with barium paste. The patient required extra time to masticate the cracker coated with barium guzmán and had noted premature spillage due delayed mastication and reduced lingual control.? Pharyngeal stage: When presented 5cc/tsp thin liquid barium, cup trials thin liquid barium, and 5cc mildly thick liquid barium the patient was viewed to have flash to trace laryngeal penetration entering the airway above the vocal folds and was ejected with the swallow secondary to reduced laryngeal elevation. Attempts to apply a chin tuck posture the posture was not consistently followed by the patient and resulted in increased laryngeal penetration. No penetration or aspiration was viewed with pudding mixed with barium paste and cracker coated with barium paste. The trace/flash laryngeal penetration viewed was within normal limits and best controlled with small sips thin liquid barium.? Recommend 1. Regular Diet / Level 7? 2. Thin Liquid / Level 0? 3. Small single sips thin liquid and small bites solids?4. Upright with meals.??? 5. Frequent Observation??? [facility] for
[2024-10-24] MEDS: DONEPEZIL HCL 5 MG TABLET PO (20:03)
[2024-10-24] MEDS: CAPSAICIN 0.025% CREAM 60 GM TUBE 1 APPLIC TOPICAL (21:18)
[2024-10-25 05:23] LABS: Hematocrit 29.0 % (37.0-47.0); Hemoglobin 9.5 g/dL (12.0-15.0); Mean Corpuscular HGB Conc 32.8 g/dl (32-36); Mean Corpuscular Hemoglobin 30.7 pg (26-34); Mean Corpuscular Volume 93.9 fl (80-100); Platelet Count Result 156 k/mm3 (150-375); Red Blood Count 3.09 M/mm3 (4.2-5.4); White Blood Count 5.2 K/mm3 (4.5-10.0)
[2024-10-25] MEDS: LEVOTHYROXINE SODIUM 150 MCG TABLET PO (05:39)
[2024-10-25 05:54] LABS: Anion Gap 6 mmol/L (4-12); Blood Urea Nitrogen 15 mg/dL (7-17); Calcium 9.6 mg/dL (8.4-10.2); Carbon Dioxide 24 mmol/L (22-30); Chloride 101 mmol/L (98-107); Estimated CRCL calculation 56 ml/min; Estimated Glomerular Filt Rate > 60; Glucose 104 mg/dL (65-110); Magnesium 1.6 mg/dL (1.6-2.3); Potassium 4.2 mmol/L (3.4-5.0); Sodium 131 mmol/L (137-145)
[2024-10-25 08:00] VITALS: BP 145/63; PULSE 66; PULSE 68; RESP 14; TEMP 36.9; O2SAT 97
--- NOTE | 2024-10-25 09:17 | P.PNIM_ITS ---
Progress Note: A&P Assessment and Plan (1) Depression with anxiety: Code(s): F41.8 - Other specified anxiety disorders Status: Acute Assessment and Plan: Patient was diagnosed with depression anxiety and also appears to have dementia. She is currently on Prozac and Aricept. Patient has mentioned multiple times suicidal ideation and was initially placed on suicidal precautions but later cleared and transferred to floor. On 10/23 morning patient tried to kill herself by wrapping the oxygen tubing around her neck. As per patient's nurse on the floor patient was increasingly violent hitting, kicking, biting anyone who comes near her. Multiple staff including the RN placed the pt back in bed. Pt then began to wrap the oxygen tubing around her neck in an attempt to strangle herself saying I want to , I want to . The charge nurse was notified and a felipe laird was called for assistance. Transfer orders were obtained and Pt was taken to ICU room Patient was transferred back to a monitored room and was placed under suicide precautions. She has one-to-one sitter. Computer Lab Para Professional and agriculture worker is at this time trying to find inpatient psych placement for this patient. Patient is otherwise ready to be discharged once a bed is obtained. She will continue treatment for pneumonia in the form of p.o. antibiotics along with her chronic medications for hypertension COPD hypothyroidism (2) Acute metabolic encephalopathy: Code(s): G93.41 - Metabolic encephalopathy Status: Acute Assessment and Plan: Overall improved. UTI and pneumonia is being treated Sodium has improved although not normalized Head CT negative History of hypothyroidism, TSH within normal limits. Patient has additionally made suicidal and homicidal statements since becoming confused (however appear to be in a joking manner) that were given more weight due to patient attempting to self-harm by cutting her wrist with her fingernails, will place on suicide precautions until encephalopathy/confusion improved. Once patient is medically cleared, will need re-evaluation. Monitor confusion and agitation. (3) Acute hyponatremia: Code(s): E87.1 - Hypo-osmolality and hyponatremia Status: Acute Assessment and Plan: Sodium improved to131 DC Lasix Off IV fluids now Monitor Suspect drop in sodium secondary to poor p.o. intake and diuretic (4) Community acquired pneumonia: Qualifiers: Laterality: unspecified laterality Qualified Code(s): J18.9 - Pneumonia, unspecified organism Code(s): J18.9 - Pneumonia, unspecified organism Status: Acute Assessment and Plan: CXR: Left basilar airspace disease may represent pneumonia or less likely asymmetric edema. Patient was started on ceftriaxone and doxycycline IV on 10/17 and has been switched to p.o. Augmentin. Afebrile with normal WBC she is on supplemental oxygen Negative MRSA PCR and sputum culture supportive care currently on baseline supplemental O2 requirement - 2L NC (5) Hypothyroidism: Qualifiers: Hypothyroidism type: acquired Qualified Code(s): E03.9 - Hypothyroidism, unspecified Code(s): E03.9 - Hypothyroidism, unspecified Status: Acute Assessment and Plan: - TSH 0.713 - continue home Synthroid (6) Hypoxemic respiratory failure, chronic: Code(s): J96.11 - Chronic respiratory failure with hypoxia Status: Acute Assessment and Plan: on baseline requirement, 2L NC. (7) Hypertension: Qualifiers: Hypertension type: primary hypertension Qualified Code(s): I10 - Essential (primary) hypertension Code(s): I10 - Essential (primary) hypertension Status: Chronic Assessment and Plan: - continue home medications - monitor (8) NBA on CPAP: Code(s): G47.33 - Obstructive sleep apnea (adult) (pediatric); Z99.89 - Dependence on other enabling machines and devices Status: Chronic Assessment and Plan: - continue home CPAP Plan Diet: Swallow evaluation done. Patient is on regular diet with small bites as per speech recommendations. GI Prophylaxis: n/a DVT Prophylaxis: SCDs Lines/Tubes: Peripheral IV Code Status: Full code Subjective Date/time seen: 10/25/24 Patient had swallow eval done yesterday and is now on modified diet. No other major events overnight. She denies any new complaints. Patient denies fever, chest pain, shortness of breath, cough, nausea vomiting, abdominal pain,, diarrhea, headache. Review of system was positive for constipation. She is on 2 L nasal cannula. Other vital signs stable. All other systems were reviewed and were negative Interval history: 79 y/o F with PMH of COPD, depression, anxiety, Genevieve's thyroiditis, migraines, seronegative collagen disorder, squamous cell carcinoma, supplemental oxygen dependent, hypertension, fibromyalgia and CHF presents here with agitation. Review of Systems Review of Systems: All systems reviewed & are unremarkable except as noted in HPI and below Exam Narrative: Patient is comfortable, NAD HEENT: eyes are clear and none icteric LUNGS:CTA HEART: RR S1S2 ABD: BS+, Soft and nontender Lower extremities: no edema SKIN: nonjaundiced Neuro: grossly intact move all 4 extremities, AO x2 Objective Data Vital Signs Vital Signs: Vital Signs - 24 hr 10/24/24 16:00 10/24/24 19:57 10/24/24 20:00 Temperature 36.4 C Pulse Rate 57 L Respiratory Rate 20 Blood Pressure 133/63 Pulse Oximetry 92 96 95 Oxygen Delivery Nasal Cannula Nasal Cannula Oxygen Flow Rate 1 2 10/24/24 20:55 10/24/24 23:44 Temperature 36.6 C 36.4 C Pulse Rate 57 L 66 Respiratory Rate 14 14 Blood Pressure 126/68 129/55 L Pulse Oximetry 95 99 Oxygen Delivery Oxygen Flow Rate Intake/Output Intake/Output: Intake & Output 10/22/24 10/23/24 10/24/24 10/25/24 23:59 23:59 23:59 23:59 Intake Total 1999 840 1676 Output Total 1450 600 900 500 Balance 550 240 776 -500 Meds/Results Medications: Active Medications Generic Name Dose Route Start Last Admin Trade Name Freq PRN Reason Stop Dose Admin Acetaminophen 650 mg 10/17/24 19:31 10/24/24 15:12 Acetaminophen 325 Mg Tablet PO 650 mg Q6H PRN Administration Mild Pain (1-3) or Fever Albuterol 1 - 2 puff 10/17/24 23:38 Albuterol Sulfate (*Sp) Aerosol 1 Puff INHALATION Q4HRT PRN shortness of breath or wheezing Albuterol/Ipratropium 3 ml 10/17/24 19:29 10/20/24 07:36 Ipratropium 0.5 Mg/Albuterol Sulfate 2.5 Mg Ampul.Neb 3 Ml INHALATION 3 ml Q6HRT PRN Administration Shortness Of Breath Or Wheezing Amlodipine Besylate 10 mg 10/18/24 09:00 10/24/24 08:55 Amlodipine Besylate 10 Mg Tablet PO 10 mg DAILY VNI Administration Aspirin 81 mg 10/18/24 09:00 10/24/24 08:55 Aspirin 81 Mg Enteric Tablet PO 81 mg QAM VIN Administration Bacitracin 1 applic 10/17/24 23:38 Bacitracin Ointment 15 Gm Tube TOPICAL BID PRN unknown Benzonatate 100 mg 10/17/24 19:23 10/24/24 08:55 Benzonatate 100 Mg Capsule PO 100 mg TID PRN Administration Cough Capsaicin 1 applic 10/24/24 20:30 10/24/24 21:18 Capsaicin 0.025% Cream 60 Gm Tube TOPICAL 1 applic Q8H PRN Administration Muscle/Joint Pain Diclofenac Sodium 1 applic 10/17/24 23:38 10/21/24 09:00 Diclofenac Sodium 1% 100 Gm Gel (*Bkc) TOPICAL 1 applic QID PRN Administration Pain Docusate Sodium 100 mg 10/18/24 09:00 10/24/24 20:04 Docusate Sodium 100 Mg Capsule PO 100 mg Q12HR VIN Administration Donepezil HCl 5 mg 10/18/24 21:00 10/24/24 20:03 Donepezil Hcl 5 Mg Tablet PO 5 mg QHS VIN Administration Fish Oil 1 gm 10/18/24 09:00 10/24/24 08:55 [place] 3 Polyunsat Fatty Acids 1 Gm Cap PO 1 gm QAM VIN Administration Fluoxetine HCl 20 mg 10/18/24 06:00 10/25/24 05:38 Fluoxetine Hcl 20 Mg Capsule PO 20 mg Q8HR VIN Administration Fluticasone/Umeclidinium/Vilanterol 1 puff 10/18/24 08:00 10/24/24 21:33 Fluticasone/Umeclidin/Vilanter 200-62.5-25 Mcg Ellipta INHALATION Not Given DAILYRT VIN Folic Acid 1 mg 10/18/24 09:00 10/24/24 08:54 Folic Acid 1 Mg Tablet PO 1 mg DAILY VIN Administration Gabapentin 300 mg 10/18/24 09:00 10/24/24 16:53 Gabapentin 300 Mg Capsule PO 300 mg TID VIN Administration Guaifenesin 600 mg 10/17/24 23:38 10/18/24 09:42 Guaifenesin 12 Hr 600 Mg Tabcr PO 600 mg Q12H PRN Administration congestion Levothyroxine Sodium 150 mcg 10/18/24 06:30 10/25/24 05:39 Levothyroxine Sodium 150 Mcg Tablet PO 150 mcg DAILY@0630 VIN Administration Loratadine 10 mg 10/17/24 23:38 10/22/24 09:57 Loratadine 10 Mg Tablet PO 10 mg DAILY PRN Administration allergy symptoms Montelukast Sodium 10 mg 10/18/24 09:00 10/24/24 08:55 Montelukast Sodium 10 Mg Tablet PO 10 mg DAILY VIN Administration Naloxone HCl 0.1 mg 10/19/24 13:20 Naloxone Hcl 0.4 Mg/Ml Vial IV PUSH Q5MIN PRN Opioid Reversal Nebivolol 10 mg 10/18/24 09:00 10/24/24 08:55 Nebivolol Hcl 5 Mg Tablet PO 10 mg DAILY VIN Administration Ondansetron HCl 4 mg 10/17/24 19:31 Ondansetron Hcl Odt 4 Mg Tablet PO Q6H PRN Nausea And Vomiting Pantoprazole Sodium 40 mg 10/18/24 09:00 10/24/24 20:03 Pantoprazole 40 Mg Tablet PO 40 mg Q12HR VIN Administration Polyethylene Glycol 17 gm 10/17/24 19:31 Polyethylene Glycol 3350 17 Gm Powd.Pack PO QAM PRN Constipation Potassium Chloride 10 meq 10/17/24 23:38 Potassium Chloride 10 Meq Er Tablet PO DAILY PRN with lasix Pravastatin Sodium 40 mg 10/18/24 09:00 10/24/24 08:55 Pravastatin Sodium 20 Mg Tablet PO 40 mg DAILY VIN Administration Spironolactone 25 mg 10/18/24 09:00 10/24/24 08:54 Spironolactone 25 Mg Tablet PO 25 mg DAILY VIN Administration Telmisartan 40 mg 10/18/24 09:00 10/24/24 20:04 Telmisartan 40 Mg Tablet PO 40 mg Q12HR VIN Administration Vitamin D 50 mcg 10/18/24 09:00 10/24/24 08:54 Cholecalciferol (Vitamin D3) 25 Mcg (1,000 Units) Tablet PO 50 mcg DAILY VIN Administration Radiology Results: ITS Impressions Head CT 10/17/24 12:34 IMPRESSION: 1. No acute intracranial hemorrhage. No mass effect. 2. Probable chronic ischemic white matter change. 3. Cerebral atrophy appropriate for the patient's age. Chest X-Ray 10/17/24 12:46 Impression: 1: Left basilar airspace disease may represent pneumonia or less likely asymmetric edema. Modified Barium Swallow 10/24/24 15:44 IMPRESSION: Pharyngeal dysphagia with transient laryngeal penetration without aspiration Please correlate with speech pathologist findings and specific feeding recommendations. Labs Labs: Laboratory Results - last 24 hr 10/25/24 05:04 WBC 5.2 RBC 3.09 L Hgb 9.5 L Hct 29.0 L MCV 93.9 MCH 30.7 MCHC 32.8 RDW 13.7 Plt Count 156 MPV 11.0 H Sodium 131 L Potassium 4.2 Chloride 101 Carbon Dioxide 24 Anion Gap 6 BUN 15 Creatinine 0.74 Estim Creat Clear Calc 56 Estimated GFR > 60 Glucose 104 Calcium 9.6 Magnesium 1.6 Quality VTE Prophylaxis VTE prophylaxis: mechanical ordered
[2024-10-25 10:02] VITALS: PULSE 68
[2024-10-25] MEDS: NEBIVOLOL HCL 5 MG TABLET 10 MG PO (10:02)
[2024-10-25] MEDS: MONTELUKAST SODIUM 10 MG TABLET PO (10:02)
[2024-10-25] MEDS: ASPIRIN 81 MG ENTERIC TABLET PO (10:02)
[2024-10-25] MEDS: FOLIC ACID 1 MG TABLET PO (10:02)
[2024-10-25] MEDS: GABAPENTIN 300 MG CAPSULE PO ×2 (10:03→13:45)
[2024-10-25] MEDS: PANTOPRAZOLE 40 MG TABLET PO (10:03)
[2024-10-25] MEDS: CHOLECALCIFEROL (VITAMIN D3) 25 MCG (1,000 UNITS) TABLET 50 MCG PO (10:03)
[2024-10-25] MEDS: DOCUSATE SODIUM 100 MG CAPSULE PO (10:04)
[2024-10-25] MEDS: OMEGA 3 POLYUNSAT FATTY ACIDS 1 GM CAP PO (10:04)
[2024-10-25] MEDS: TELMISARTAN 40 MG TABLET PO (10:04)
[2024-10-25] MEDS: SPIRONOLACTONE 25 MG TABLET PO (10:04)
[2024-10-25] MEDS: PRAVASTATIN SODIUM 20 MG TABLET 40 MG PO (10:04)
--- NOTE | 2024-10-25 10:44 | PCNWS ---
Weekly nutritional screen. Patient is tolerating current diet with adequate intake. No weight loss reported. No nutritional needs at this time.
--- NOTE | 2024-10-25 11:36 | PC.NURSE ---
Addendum entered by Kaitlin Covington RN 10/25/24 11:37: Family at bedside and aware of transfer Original Note: This patient, Marialuisa Darden, was transferred to [[id number] ] on 10/25/24 at 1120. Personal belongings sent with patient. Report given to [ELVIN Amaya @ [id number] ]. Appropriate documentation sent with patient.
[2024-10-25 11:45] VITALS: O2SAT 98
--- NOTE | 2024-10-25 11:57 | WPDPNPSYCH ---
Progress Note: A&P Assessment and Plan (1) Depression, major, recurrent, mild: Code(s): F33.0 - Major depressive disorder, recurrent, mild Status: Acute (2) Delirium due to another medical condition: Code(s): F05 - Delirium due to known physiological condition Status: Acute (3) Mild cognitive impairment with memory loss: Code(s): G31.84 - Mild cognitive impairment of uncertain or unknown etiology Status: Acute Plan Mental status appears to be improving. Highly suspect that suicidal statements and behaviors were secondary to delirium, patient does not recall these episodes and adamantly denies current suicidal ideation. No plan or intent present. Inpatient admission would likely further deteriorate her condition, as delirium is most likely to improve with consistent routine, familiar environment, especially in context of underlying dementia. Plan discussed with who agrees, he verbalizes he feels safe with patient returning home with him. No imminent safety risk factors or concerns present. Patient is cleared from a psychiatric standpoint to discharge home. -Cont home medications as prescribed, follow up with PCP. -Discontinue suicide precautions, 1:1 sitter. Time Spent With Patient Time: 35 minutes for total encounter Exam Psych: Appearance: grossly normal Mental Status: mental status grossly normal Speech and movement: Normal speech and movement present Affect: normal affect Attitude: cooperative Thought process: Normal thought process present Thought content: Yes Normal thought content present Insight: Fair insight present (Psych) Judgement: Fair judgement present (Psych) Objective Data Vital Signs Vital Signs: Vital Signs - 24 hr 10/24/24 16:00 10/24/24 19:57 10/24/24 20:00 Temperature 97.6 F Pulse Rate 57 L Respiratory Rate 20 Blood Pressure 133/63 Pulse Oximetry 92 96 95 Oxygen Delivery Nasal Cannula Nasal Cannula Oxygen Flow Rate 1 2 10/24/24 20:55 10/24/24 23:44 10/25/24 08:00 Temperature 97.8 F 97.6 F 98.5 F Pulse Rate 57 L 66 66 Respiratory Rate 14 14 14 Blood Pressure 126/68 129/55 L 145/63 H Pulse Oximetry 95 99 97 Oxygen Delivery Oxygen Flow Rate 10/25/24 08:00 10/25/24 08:42 10/25/24 10:02 Temperature Pulse Rate 68 68 Respiratory Rate 14 Blood Pressure Pulse Oximetry 97 Oxygen Delivery Nasal Cannula Nasal Cannula Oxygen Flow Rate 2 2 Intake/Output Intake/Output: Intake & Output 10/22/24 10/23/24 10/24/24 10/25/24 23:59 23:59 23:59 23:59 Intake Total 1999 840 1676 240 Output Total 1450 600 900 500 Balance 550 240 776 -260 Meds/Results Medications: Active Medications Generic Name Dose Route Start Last Admin Trade Name Freq PRN Reason Stop Dose Admin Acetaminophen 650 mg 10/17/24 19:31 10/24/24 15:12 Acetaminophen 325 Mg Tablet PO 650 mg Q6H PRN Administration Mild Pain (1-3) or Fever Albuterol 1 - 2 puff 10/17/24 23:38 Albuterol Sulfate (*Sp) Aerosol 1 Puff INHALATION Q4HRT PRN shortness of breath or wheezing Albuterol/Ipratropium 3 ml 10/17/24 19:29 10/20/24 07:36 Ipratropium 0.5 Mg/Albuterol Sulfate 2.5 Mg Ampul.Neb 3 Ml INHALATION 3 ml Q6HRT PRN Administration Shortness Of Breath Or Wheezing Amlodipine Besylate 10 mg 10/18/24 09:00 10/25/24 10:04 Amlodipine Besylate 10 Mg Tablet PO 10 mg DAILY VIN Administration Aspirin 81 mg 10/18/24 09:00 10/25/24 10:02 Aspirin 81 Mg Enteric Tablet PO 81 mg QAM VIN Administration Bacitracin 1 applic 10/17/24 23:38 Bacitracin Ointment 15 Gm Tube TOPICAL BID PRN unknown Benzonatate 100 mg 10/17/24 19:23 10/24/24 08:55 Benzonatate 100 Mg Capsule PO 100 mg TID PRN Administration Cough Capsaicin 1 applic 10/24/24 20:30 10/24/24 21:18 Capsaicin 0.025% Cream 60 Gm Tube TOPICAL 1 applic Q8H PRN Administration Muscle/Joint Pain Diclofenac Sodium 1 applic 10/17/24 23:38 10/21/24 09:00 Diclofenac Sodium 1% 100 Gm Gel (*Bkc) TOPICAL 1 applic QID PRN Administration Pain Docusate Sodium 100 mg 10/18/24 09:00 10/25/24 10:04 Docusate Sodium 100 Mg Capsule PO 100 mg Q12HR VIN Administration Donepezil HCl 5 mg 10/18/24 21:00 10/24/24 20:03 Donepezil Hcl 5 Mg Tablet PO 5 mg QHS VIN Administration Fish Oil 1 gm 10/18/24 09:00 10/25/24 10:04 [place] 3 Polyunsat Fatty Acids 1 Gm Cap PO 1 gm QAM VIN Administration Fluoxetine HCl 20 mg 10/18/24 06:00 10/25/24 05:38 Fluoxetine Hcl 20 Mg Capsule PO 20 mg Q8HR VIN Administration Fluticasone/Umeclidinium/Vilanterol 1 puff 10/18/24 08:00 10/24/24 21:33 Fluticasone/Umeclidin/Vilanter 200-62.5-25 Mcg Ellipta INHALATION Not Given DAILYRT VIN Folic Acid 1 mg 10/18/24 09:00 10/25/24 10:02 Folic Acid 1 Mg Tablet PO 1 mg DAILY VIN Administration Gabapentin 300 mg 10/18/24 09:00 10/25/24 10:03 Gabapentin 300 Mg Capsule PO 300 mg TID VIN Administration Guaifenesin 600 mg 10/17/24 23:38 10/18/24 09:42 Guaifenesin 12 Hr 600 Mg Tabcr PO 600 mg Q12H PRN Administration congestion Levothyroxine Sodium 150 mcg 10/18/24 06:30 10/25/24 05:39 Levothyroxine Sodium 150 Mcg Tablet PO 150 mcg DAILY@0630 VIN Administration Loratadine 10 mg 10/17/24 23:38 10/22/24 09:57 Loratadine 10 Mg Tablet PO 10 mg DAILY PRN Administration allergy symptoms Montelukast Sodium 10 mg 10/18/24 09:00 10/25/24 10:02 Montelukast Sodium 10 Mg Tablet PO 10 mg DAILY VIN Administration Naloxone HCl 0.1 mg 10/19/24 13:20 Naloxone Hcl 0.4 Mg/Ml Vial IV PUSH Q5MIN PRN Opioid Reversal Nebivolol 10 mg 10/18/24 09:00 10/25/24 10:02 Nebivolol Hcl 5 Mg Tablet PO 10 mg DAILY VIN Administration Ondansetron HCl 4 mg 10/17/24 19:31 Ondansetron Hcl Odt 4 Mg Tablet PO Q6H PRN Nausea And Vomiting Pantoprazole Sodium 40 mg 10/18/24 09:00 10/25/24 10:03 Pantoprazole 40 Mg Tablet PO 40 mg Q12HR VIN Administration Polyethylene Glycol 17 gm 10/17/24 19:31 Polyethylene Glycol 3350 17 Gm Powd.Pack PO QAM PRN Constipation Potassium Chloride 10 meq 10/17/24 23:38 Potassium Chloride 10 Meq Er Tablet PO DAILY PRN with lasix Pravastatin Sodium 40 mg 10/18/24 09:00 10/25/24 10:04 Pravastatin Sodium 20 Mg Tablet PO 40 mg DAILY VIN Administration Spironolactone 25 mg 10/18/24 09:00 10/25/24 10:04 Spironolactone 25 Mg Tablet PO 25 mg DAILY VIN Administration Telmisartan 40 mg 10/18/24 09:00 10/25/24 10:04 Telmisartan 40 Mg Tablet PO 40 mg Q12HR VIN Administration Vitamin D 50 mcg 10/18/24 09:00 10/25/24 10:03 Cholecalciferol (Vitamin D3) 25 Mcg (1,000 Units) Tablet PO 50 mcg DAILY VIN Administration Radiology Results: ITS Impressions Head CT 10/17/24 12:34 IMPRESSION: 1. No acute intracranial hemorrhage. No mass effect. 2. Probable chronic ischemic white matter change. 3. Cerebral atrophy appropriate for the patient's age. Chest X-Ray 10/17/24 12:46 Impression: 1: Left basilar airspace disease may represent pneumonia or less likely asymmetric edema. Modified Barium Swallow 10/24/24 15:44 IMPRESSION: Pharyngeal dysphagia with transient laryngeal penetration without aspiration Please correlate with speech pathologist findings and specific feeding recommendations. Labs Labs: Laboratory Results - last 24 hr 10/25/24 05:04 WBC 5.2 RBC 3.09 L Hgb 9.5 L Hct 29.0 L MCV 93.9 MCH 30.7 MCHC 32.8 RDW 13.7 Plt Count 156 MPV 11.0 H Sodium 131 L Potassium 4.2 Chloride 101 Carbon Dioxide 24 Anion Gap 6 BUN 15 Creatinine 0.74 Estim Creat Clear Calc 56 Estimated GFR > 60 Glucose 104 Calcium 9.6 Magnesium 1.6 Subjective Date/time seen: 10/25/24 11:57 Interval history: Marialuisa Darden is a 79 year old female admitted on 10/17 due to confusion with agitation, hyponatremia, UTI. Psychiatry was initially consulted on 10/20 and no changes were made to treatment plan. UTI was initially diagnosed on 10/12 and treatment was started. Around this time, she started making suicidal and non-specific homicidal comments toward her , which reports is out of character for her. UTI has since resolved with treatment. Since this time, confusion and agitation appears to have worsened. Per reports, patient has made suicidal statements, subsequently wrapping her oxygen tubing around neck so was transferred to ICU and suicide precautions put in place. She was evaluated by Crisis Team and recommendation was made to admit involuntary to inpatient behavioral health for further management. She has a psychiatric history of depression and dementia, which she is currently prescribed fluoxetine 20mg daily and Aricept 5mg daily for chronic management. Depression has been longstanding since adolescence and is generally stable on current dose of fluoxetine. Additionally, she has a history of chronic hyponatremia, which has overall improved this admission. Evaluated on 10/23/2024- appeared to be improving gradually, quetiapine as needed was started for agitation, which does not appear to have been needed. 10/25/2024- psychiatry re-consulted for assistance with discharge planning, continued evaluation for need for inpatient admission versus discharge to home with ([facility] at bedside today, patient sitting up in chair, calm and cooperative. Continues to appear that delirium is clearing. No recent agitation noted or reported. No recent suicidal statements or behaviors noted. Denies feeling depressed, although expresses sadness about being away from her while she is in the hosptial. She does not recall making suicidal/homicidal statements or behaviors earlier this admission.
--- NOTE | 2024-10-25 12:21 | ADMGEN ---
This patient, Marialuisa Darden, was admitted to [facility] Surg Room 333-01. Patient/family oriented to hospital policies and general routines including ID bracelet, bed and alarms, visiting hours, pain management, procedures, bathroom and other care routines, personal items, smoking policy, room service/diet, and visiting hours. Information on how to activate the Rapid Response Team has been discussed. Patient/Family are encouraged to report perceived risks to care and to ask questions if they do not understand what they are told or what they should do. received report from Kaitlin.
--- NOTE | 2024-10-25 12:44 | PM.DS ---
DS: Admitting Diagnosis Discharge Date 10/25/2024 Admitting Diagnosis Agitation DS: Discharge Diagnosis Discharge Diagnosis (1) Depression with anxiety: Code(s): F41.8 - Other specified anxiety disorders Status: Acute Assessment and Plan: Patient was diagnosed with depression anxiety and also appears to have dementia. She was seen by Psychiatry and is currently on She is currently on Prozac and Aricept. Patient has mentioned suicidal ideation and was initially placed on suicidal precautions but later cleared and transferred to floor. On 10/23 morning patient was confused and agitated and threatened to tried to kill herself by wrapping the oxygen tubing around her neck. Patient was transferred back to a monitored room and was placed under suicide precautions. She has one-to-one sitter. [employer] and nozzle and sleeve worker tried to find inpatient psych placement for this patient. Despite separate temp and conner several facilities we were unable to get her accepted to any inpatient psychiatry facility. During those 3 days patient's mental status improved with improvement and confusion agitation. Patient became more alert and denied any further suicidal ideation or thoughts. Patient was with her who also felt the patient was confused hence said certain things. I requested Psychiatry to re-evaluate the patient and they also felt that this was likely secondary to her delirium per and cleared her for discharge with current medications and follow-up. At I did offer patient transferred to inpatient rehab but patient and her refused and wanted to go back to assisted living. Patient will be discharged on Aricept and Prozac with follow-up with PCP and if needed with Psychiatry Dr. Murphy (2) Acute metabolic encephalopathy: Code(s): G93.41 - Metabolic encephalopathy Status: Acute Assessment and Plan: Patient presented with acute agitation and confusion. Patient does have dementia most of it appears to be delirium. She had UTI and pneumonia which was treated sodium also was low which improved. Head CT was negative History of hypothyroidism, TSH within normal limits. A dD (3) Acute hyponatremia: Code(s): E87.1 - Hypo-osmolality and hyponatremia Status: Acute Assessment and Plan: Patient presented with low sodium of 126 which improved to above 130 Lasix was discontinued and she was given some IV fluids during the stay Suspect drop in sodium secondary to poor p.o. intake and diuretic (4) Community acquired pneumonia: Qualifiers: Laterality: unspecified laterality Qualified Code(s): J18.9 - Pneumonia, unspecified organism Code(s): J18.9 - Pneumonia, unspecified organism Status: Acute Assessment and Plan: CXR: Left basilar airspace disease may represent pneumonia or less likely asymmetric edema. Patient was treated with IV Rocephin and doxycycline which was later switched to p.o. Augmentin. Patient completed her course of antibiotics. She is now afebrile and is on her baseline supplemental oxygen. She has normal WBC Negative MRSA PCR and sputum culture (5) Hypothyroidism: Qualifiers: Hypothyroidism type: acquired Qualified Code(s): E03.9 - Hypothyroidism, unspecified Code(s): E03.9 - Hypothyroidism, unspecified Status: Acute Assessment and Plan: TSH 0.713 patient was continued on her continue home Synthroid (6) Hypoxemic respiratory failure, chronic: Code(s): J96.11 - Chronic respiratory failure with hypoxia Status: Acute Assessment and Plan: Patient remained on her baseline oxygen at 2 L nasal cannula (7) Hypertension: Qualifiers: Hypertension type: primary hypertension Qualified Code(s): I10 - Essential (primary) hypertension Code(s): I10 - Essential (primary) hypertension Status: Chronic Assessment and Plan: Blood pressure remained in controlled and her home medications were continued (8) NBA on CPAP: Code(s): G47.33 - Obstructive sleep apnea (adult) (pediatric); Z99.89 - Dependence on other enabling machines and devices Status: Chronic Assessment and Plan: Her home CPAP was continued Plan Patient also had a swallow evaluation done due to concern for aspiration. Overall patient did well and speech therapy recommended regular diet with precautions like small bites DS: Summary Hospital Course Hospital Course: See above Time spent discussing smoking cessation with patient: more than 10 minutes Status at Discharge Functional status at discharge: uses cane/walker Overall status at discharge: patient is progressing back to baseline Time Spent with Patient Time attestation: Total time spent providing and/or coordinating discharge services: Exam Narrative: Patient is comfortable, NAD HEENT: eyes are clear and none icteric LUNGS:CTA HEART: RR S1S2 ABD: BS+, Soft and nontender Lower extremities: no edema SKIN: nonjaundiced Neuro: grossly intact move all 4 extremities, AO x2 DS: Data Data Completed and Pending Completed studies during hospitalization: Impressions Modified Barium Swallow 10/24/24 15:44 IMPRESSION: Pharyngeal dysphagia with transient laryngeal penetration without aspiration Please correlate with speech pathologist findings and specific feeding recommendations. Labs on day of discharge: Labs from last 24 hours 10/25/24 05:04 WBC 5.2 RBC 3.09 L Hgb 9.5 L Hct 29.0 L MCV 93.9 MCH 30.7 MCHC 32.8 RDW 13.7 Plt Count 156 MPV 11.0 H Sodium 131 L Potassium 4.2 Chloride 101 Carbon Dioxide 24 Anion Gap 6 BUN 15 Creatinine 0.74 Estim Creat Clear Calc 56 Estimated GFR > 60 Glucose 104 Calcium 9.6 Magnesium 1.6 Discharge Plan Discharge Attending physician on discharge: Guillermo Wood Consulting providers: Troy Murphy Discharging Clinician: Guillermo Wood Anticipated Discharge Date/Time: 10/25/24 12:45 Patient Disposition: NH Long Term/Asst Living Activity: as tolerated Diet: other - see discharge instructions Discharge Instructions: Follow with PCP in 2 weeks and Psychiatry as needed We have requested outpatient PT and OT for the patient Patient Instructions: Antibiotic Form Patient Language: Latvian Stand Alone Forms: General Discharge Information, Retirement Discharge Follow-up/Referrals: Naesem Ayoub, DIRECTOR EDUCATION [Advanced Practice Nurse, Psychiatry] Discharge Medications: Continued docusate sodium 100 mg capsule 100 mg PO BID telmisartan 40 mg tablet 40 mg PO BID diclofenac sodium [Arthritis Pain (diclofenac)] 1 % gel 4 g topical QID PRN (Reason: Pain) Rx Instructions: apply to single knee, ankle, foot; for foot includes sole/toes/top of foot spironolactone 25 mg tablet 25 mg PO DAILY albuterol sulfate 2.5 mg /3 mL (0.083 %) solution for nebulization 2.5 mg inhalation Q6-8H PRN (Reason: shortness of breath or wheezing) naloxone 4 mg/actuation spray,non-aerosol 4 mg intranasal Q2-3M PRN (Reason: opioid overdose) Qty: 2 1RF Rx Instructions: spray 1 dose into ONE nostril; repeat every 2-3 minutes until responsive, alternating nostrils w each dose until help arrives albuterol sulfate 90 mcg/actuation HFA aerosol inhaler 1 - 2 puff inhalation Q4-6H PRN (Reason: shortness of breath or wheezing) Qty: 25.5 3RF (DME) oxygen 0 .ROUTE .MEDSUPPLY Patient Comments: 2L (DME) CPAP 0 .ROUTE .MEDSUPPLY (DME) Pain Pump See Rx Instructions .ROUTE .MEDSUPPLY Patient Comments: prescribed by pain management Rx Instructions: Primary: Hydromorphone 125.0mcg/mL Secondary: Clonidine 200.0mcg/mL,Bupivacaine 5,000mcg/mL furosemide [Lasix] 20 mg tablet 20 mg PO QPM PRN (Reason: weight gain) loratadine [Claritin] 10 mg tablet 10 mg PO DAILY PRN (Reason: allergy symptoms) guaifenesin [Mucinex] 600 mg tablet extended release 12hr 600 mg PO Q12H PRN (Reason: congestion) bacitracin 500 unit/gram ointment 1 applic topical BID PRN (Reason: dry nose) aspirin 81 mg capsule 81 mg PO DAILY Gemtesa 75 mg tablet 75 mg PO DAILY cholecalciferol (vitamin D3) 50 mcg (2,000 unit) capsule 2,000 unit PO DAILY Camilla-3 350 mg-235 mg- 90 mg-597 mg capsule,delayed release(DR/EC) 1 cap PO DAILY Trelegy Ellipta 200-62.5-25 mcg blister with device 1 inh inhalation DAILY Qty: 180 3RF Rx Instructions: Rinse mouth and spit after each use lidocaine 5 % adhesive patch,medicated See Rx Instructions .ROUTE .COMPLEX Qty: 90 3RF Dose Instruction: APPLY 1 PATCH TO LOW BACK FOR 12 HOURS PER DAY Rx Instructions: APPLY 1 PATCH TO LOW BACK FOR 12 HOURS PER DAY amlodipine 10 mg tablet 10 mg PO DAILY Qty: 90 1RF donepezil 5 mg tablet 5 mg PO QHS Qty: 90 1RF fluoxetine 20 mg capsule 20 mg PO TID Qty: 270 1RF gabapentin 300 mg capsule 300 mg PO TID Qty: 270 1RF montelukast 10 mg tablet 10 mg PO DAILY Qty: 90 1RF pantoprazole 40 mg tablet,delayed release (DR/EC) 40 mg PO BID Qty: 180 1RF pravastatin 40 mg tablet 40 mg PO DAILY Qty: 90 1RF levothyroxine [Synthroid] 150 mcg tablet 150 mcg PO DAILY Qty: 90 1RF nebivolol [Bystolic] 10 mg tablet 10 mg PO DAILY Qty: 90 1RF folic acid 1 mg tablet 1 mg PO DAILY Qty: 90 1RF Discontinued potassium chloride [Klor-Con 10] 10 mEq tablet extended release 10 meq PO DAILY PRN (Reason: with lasix) Patient Comments: take only when taking Lasix cephalexin 500 mg capsule 500 mg PO Q8H 7 Days Qty: 21 0RF Patient Comments: Last scheduled day this Tuesday Other Ambulatory Orders: OT Outpatient Eval and Treat (ONCE) Timeframe: 20241108 Location: Determined by Patient Ordered By: Guillermo Wood PT Outpatient Eval and Treat (ONCE) Timeframe: 20241108 Location: Determined by Patient Ordered By: Guillermo Wood Date of admission: 10/17/24 14:07 Primary Care Provider: Kristofer Key Admitting Provider: Brenden Cadena Attending physician on admission: Brenden Cadena Condition: Stable Quality VTE Prophylaxis VTE prophylaxis: mechanical ordered Hospitalist MIPS Heart Failure (Exclusion) Patient has history of Heart Transplant or Left Ventricular Assistive Device?: No IF YES, STOP HERE Heart Failure (Qualifier) Patient has current or prior documentation of LVEF less than or equal to 40%, or mod/servere depressed LVSF?: No IF NO, STOP HERE
--- NOTE | 2024-10-30 10:00 | WPDPN ---
Progress Note: A&P Assessment and Plan (1) Acute metabolic encephalopathy: Code(s): G93.41 - Metabolic encephalopathy Status: Acute Assessment and Plan: Patient able to answer orientation questions, however upon further investigation and during her interview she continuously demonstrated agitation and confusion. Initially precipitated by a UTI which has since been treated and UA currently appears unremarkable. Further workup in the emergency department revealed a new/acute hyponatremia and possible pneumonia. See sections below. Head CT negative. History of hypothyroidism, TSH within normal limits. Patient has additionally made suicidal and homicidal statements since becoming confused (however appear to be in a joking manner) that were given more weight due to patient attempting to self-harm by cutting her wrist with her fingernails, will place on suicide precautions until encephalopathy/confusion improved. Once patient is medically cleared, will need re-evaluation. Monitor confusion and agitation. (2) Acute hyponatremia: Code(s): E87.1 - Hypo-osmolality and hyponatremia Status: Acute Assessment and Plan: - Na 126 - check serum osmolality, urine osmolality, urine sodium, protein to creatinine ratio, urine creatinine - IV fluids: 1L bolus -> 100 mL/hr x1L - trend renal function - monitor neurological status Suspect drop in sodium secondary to poor p.o. intake as the patient has been intermittently confused and agitated over the last few days. No nausea, vomiting, diarrhea noted by patient. (3) Community acquired pneumonia: Qualifiers: Laterality: unspecified laterality Qualified Code(s): J18.9 - Pneumonia, unspecified organism Code(s): J18.9 - Pneumonia, unspecified organism Status: Acute Assessment and Plan: - CXR: Left basilar airspace disease may represent pneumonia or less likely asymmetric edema. - started on ceftriaxone and doxycycline IV on 10/17 - check MRSA PCR and sputum culture (if obtainable) - supportive care - currently on baseline supplemental O2 requirement - 2L NC (4) Hypothyroidism: Qualifiers: Hypothyroidism type: acquired Qualified Code(s): E03.9 - Hypothyroidism, unspecified Code(s): E03.9 - Hypothyroidism, unspecified Status: Acute Assessment and Plan: - TSH 0.713 - continue home Synthroid (5) Hypoxemic respiratory failure, chronic: Code(s): J96.11 - Chronic respiratory failure with hypoxia Status: Acute Assessment and Plan: - no worsening hypoxia. on baseline requirement, 2L NC. (6) Hypertension: Qualifiers: Hypertension type: primary hypertension Qualified Code(s): I10 - Essential (primary) hypertension Code(s): I10 - Essential (primary) hypertension Status: Chronic Assessment and Plan: - chronic, currently 180/71 - continue home medications - monitor (7) NBA on CPAP: Code(s): G47.33 - Obstructive sleep apnea (adult) (pediatric); Z99.89 - Dependence on other enabling machines and devices Status: Chronic Assessment and Plan: - continue home CPAP Plan Initially patient was admitted into ICU with concern for suicide, patient was evaluated and cleared that patient does not have intention to harm herself or anyone else, patient remains somewhat agitated suspect due to possibly hyponatremia and UTI, her sodium levels are trending up close to her baseline, patient was seen by psychiatrist and suspect hyponatremia is mild and chronic does not require any medication change and recommended to continue palxil as she has been taking for close to 20yrs, and her urine growing klebs aerogenes and being treated with cefepime, patient still has episodes of agitation and confusions on and off, better today but episodes are short, patient is clinically stable, her is present gave updates, patient is clinically stable, and her baseline, her wants to wait until tomorrow to take her home. will monitor. Patient clinical symptoms were improving and plan was to discharge patient today however patient was found trying to hurt self with oxygen cord, felipe laird was called and patient was transferred to ICU. Diet: Regular GI Prophylaxis: n/a DVT Prophylaxis: SCDs IV fluids: 1L bolus -> 100 mL/hr x1L Lines/Tubes: Peripheral IV Code Status: Full code Subjective Date/time seen: 10/30/24 10:00 Interval history: Initially patient was admitted into ICU with concern for suicide, patient was evaluated and cleared that patient does not have intention to harm herself or anyone else, patient remains somewhat agitated suspect due to possibly hyponatremia and UTI, her sodium levels are trending up close to her baseline, patient was seen by psychiatrist and suspect hyponatremia is mild and chronic does not require any medication change and recommended to continue palxil as she has been taking for close to 20yrs, and her urine growing klebs aerogenes and being treated with cefepime, patient still has episodes of agitation and confusions on and off, better today but episodes are short, patient is clinically stable, her is present gave updates, patient is clinically stable, and her baseline, her wants to wait until tomorrow to take her home. will monitor. Patient clinical symptoms were improving and plan was to discharge patient today however patient was found trying to hurt self with oxygen cord, code sisi was called and patient was transferred to ICU. Exam Narrative: Patient is comfortable, NAD HEENT: eyes are clear and none icteric LUNGS:CTA HEART: RR S1S2 ABD: BS+, Soft and nontender Lower extremities: no edema SKIN: nonjaundiced Neuro: grossly intact. Objective Data Meds/Results Radiology Results: ITS Impressions Head CT 10/17/24 12:34 IMPRESSION: 1. No acute intracranial hemorrhage. No mass effect. 2. Probable chronic ischemic white matter change. 3. Cerebral atrophy appropriate for the patient's age. Chest X-Ray 10/17/24 12:46 Impression: 1: Left basilar airspace disease may represent pneumonia or less likely asymmetric edema. Modified Barium Swallow 10/24/24 15:44 IMPRESSION: Pharyngeal dysphagia with transient laryngeal penetration without aspiration Please correlate with speech pathologist findings and specific feeding recommendations.
== END 2024-10-25 15:00 | DRG 689 ==
LOC: ANHED 12:28 → ANH3MEDSUR 14:58 → ANH2MED 16:23 → ANHICU 17:28 → ANH2MED 10-18 14:36 → ANHICU 10-23 07:35 → ANH3MEDSUR 10-25 12:55 → ANHCPC 10-26 11:56 → ANHICU 10-26 11:56
PROVIDERS: Emergency Medicine; Student in an Organized Health Care Education/Training Program; Admitting Provider Family Medicine; Emergency Provider Student in an Organized Health Care Education/Training Program; PCP Internal Medicine; Visit Provider Internal Medicine
DX: N39.0 Urinary tract infection, site not specified (principal); G93.41 Metabolic encephalopathy; J18.9 Pneumonia, unspecified organism; F05 Delirium due to known physiological condition; E87.1 Hypo-osmolality and hyponatremia; J96.11 Chronic respiratory failure with hypoxia; J44.0 Chronic obstructive pulmonary disease with (acute) lower respiratory infection; E03.9 Hypothyroidism, unspecified; F03.90 Unspecified dementia, unspecified severity, without behavioral disturbance, psychotic disturbance, mood disturbance, and anxiety; F41.8 Other specified anxiety disorders; G47.33 Obstructive sleep apnea (adult) (pediatric); I50.9 Heart failure, unspecified; I11.0 Hypertensive heart disease with heart failure; Z99.89 Dependence on other enabling machines and devices; Z79.82 Long term (current) use of aspirin; Z20.822 Contact with and (suspected) exposure to COVID-19; Z85.828 Personal history of other malignant neoplasm of skin; Z87.891 Personal history of nicotine dependence
CPT/HCPCS: 36415; 70450; 71046; 74230; 80048; 80053; 80307; 81003; 82077; 82570; 83605; 83735; 83930; 83935; 84156; 84300; 84443; 85025; 85027; 85055; 87040; 87070; 87205; 87635; 87641; 92610; 92611; 94640; 97162; 97166; 99285; A9270; J0692; J0696; J2359; J7030

== ENCOUNTER 2025-02-10 15:19 | Inpatient (IN) | payer MEDICARE, OTHER, SELFPAY ==
[2025-02-10] VITALS (10 sets, daily range): PULSE 61–74; RESP 16–30; O2SAT 94–97
--- NOTE | ~2025-02-10 | CT_ITS ---
EXAM/PROCEDURE: CT soft tissue neck chest wo HISTORY: Abnormal PFTs, assess for tracheal abnormality COMPARISON: Chest CT exam from February 132023, and 2024 TECHNIQUE: CT of the neck and chest without contrast FINDINGS: CT: The pharyngeal airway appears within normal limits Extensive atherosclerotic calcification in the carotid arteries right greater than left. Scattered nonpathologic sized lymph nodes. No large mass or drainable fluid collection. Diffuse degenerative changes throughout the bones. No gross acute process seen in the visualized intracranial contents or soft tissues of the neck. Vocal cord areas appear normal. Chest CT: The trachea is somewhat ectatic but there is no significant narrowing to confirm tracheomalacia. Tracheal wall calcification as well as bronchial wall calcification noted. Mild to moderate scattered fibrotic appearing changes. Groundglass opacification is slightly improved compared to the February 13, 2025 exam. Heart is mildly enlarged. Central main pulmonary artery also enlarged with the main pulmonary artery measuring approximately 4.3 cm in diameter. No significant pericardial effusion. Scattered mediastinal lymph nodes, mildly pathologic in size unchanged from the 2023 exam. In the upper abdomen, pneumobilia again noted along with cholecystectomy clips. No acute process seen in the visualized portions of the extrathoracic soft tissues. Degenerative changes throughout the bones. IMPRESSION: 1. No acute process involving the trachea identified; no evidence of tracheobronchomalacia on this exam. There is calcification throughout the tracheal air column and bronchial passages which is chronic and benign. 2. Other findings as above including a large central and main pulmonary arteries suggesting pulmonary arterial hypertension; interstitial lung pattern consistent with fibrosing form of nonspecific interstitial pneumonitis or possible mild UIP. Groundglass opacification could represent alveolar fibrosis versus superimposed acute atypical inflammatory/infectious pneumonitis. Reviewed, dictated and finalized at location A. ACT WRINGER IMPRESSION: 1. No acute process involving the trachea identified; no evidence of tracheobro nchomalacia on this exam. There is calcification throughout the tracheal air co lumn and bronchial passages which is chronic and benign. 2. Other findings as above including a large central and main pulmonary arterie s suggesting pulmonary arterial hypertension; interstitial lung pattern consist ent with fibrosing form of nonspecific interstitial pneumonitis or possible mil d UIP. Groundglass opacification could represent alveolar fibrosis versus super imposed acute atypical inflammatory/infectious pneumonitis.
--- NOTE | ~2025-02-10 | XR_ITS ---
EXAMINATION: XR chest 1V portable COMPARISON: No comparisons available. HISTORY: cough FINDINGS: Moderate pulmonary venous congestion. Bilateral infiltrates. No pneumothorax. Moderate cardiomegaly. Mediastinal and hilar contours are within normal limits. Bony thorax no acute abnormality. Miscellaneous: None Impression: CHF. Superimposed probable pneumonia. The findings appear progressed compared to the previous study. Reviewed, dictated and finalized at location P. SOUND COORDINATOR Impression: CHF. Superimposed probable pneumonia. The findings appear progressed compared t o the previous study.
--- NOTE | ~2025-02-10 | US_ITS ---
EXAMINATION: US venous doppler [facility], 02/13/2025 16:30 MAIL HANDLER ASSISTANT HISTORY: edema COMPARISON: None Technique: Quintana-scale and color Doppler images were attempted of the lower saphenofemoral junction, common femoral vein,superficial femoral vein, proximal deep femoral vein, proximal deep femoral vein, popliteal vein and posterior tibial veins. Findings: Deep Venous System:Normal flow, augmentation and compressibility. No echogenic thrombus identified. Superficial Venous SystemNo superficial thrombophlebitis. Soft tissues: Soft tissues are unremarkable. Impression: Negative for DVT. Reviewed, dictated and finalized at location P. HANDLER ASSISTANT Impression: Negative for DVT.
--- NOTE | ~2025-02-10 | CT_ITS ---
EXAMINATION: CTA chest PE protocol DATE: 02/13/2025 15:23 INDICATION: Rule out PE. TECHNIQUE: Computed tomography angiography (CTA) of the chest was performed with 100 mL Omnipaque-350 intravenous contrast timed to evaluate the pulmonary arteries. Coronal maximum intensity projection 3D-reconstructions were created by the technologist. Automated exposure control and iterative reconstruction technique were employed. The dose-length product was 711.59 mGy-cm. COMPARISON: Chest x-ray 10/17/2024 FINDINGS: No evidence of pulmonary emboli. Thoracic aorta shows no evidence of dissection or aneurysm. Significant coronary artery calcification of proximal left anterior descending and circumflex coronary arteries. Moderate emphysematous lungs. Mild groundglass opacities of lung bases suggest congestive changes. No pleural effusion or pericardial effusion. Pneumobilia from prior surgery is noted in the upper abdomen. Severe multilevel degenerative disc disease of thoracolumbar spine and postsurgical changes. IMPRESSION: 1. No evidence of pulmonary emboli. No acute abnormalities of thoracic aorta. 2. Emphysematous lungs. Mild groundglass opacity of lung bases due to mild congestive changes. No pleural or pericardial effusion. 3. Severe scoliosis and postsurgical changes with degenerative disc disease of thoracolumbar spine. Reviewed, dictated and finalized at location T. UNITY OUTREACH COORDINATOR IMPRESSION: 1. No evidence of pulmonary emboli. No acute abnormalities of thoracic aorta. 2. Emphysematous lungs. Mild groundglass opacity of lung bases due to mild raina estive changes. No pleural or pericardial effusion. 3. Severe scoliosis and postsurgical changes with degenerative disc disease of thoracolumbar spine.
[2025-02-10] MEDS: ALBUTEROL SULFATE NEB 2.5 MG/3 ML INH 5 MG INHALATION (15:28)
--- NOTE | 2025-02-10 15:29 | ED.GENADULT ---
HPI - General Adult General Chief complaint: Shortness of Breath/Dyspnea Stated complaint: dyspnea History of Present Illness HPI narrative: 79-year-old female with history of asthma presents to the emergency department for evaluation for worsening shortness of breath that is been worsening over the course of the last 2 days. Patient does have a nonproductive cough. Patient does have history of smoking but quit many years ago. Patient does require 2 L of oxygen by nasal cannula at all times was had to increase to 4 L. Patient arrived by EMS. When EMS arrived patient was saturating at high 80s on 4 L. patient was placed on a non-rebreather. Patient denies any prior history of congestive heart failure. Related Data Home Medications ?Medication ?Instructions ?Recorded ?Confirmed ?Last Taken ?Type docusate sodium 100 mg capsule 100 mg PO BID 11/18/21 11/01/24 10/17/24 History diclofenac sodium 1 % topical gel 4 g topical QID PRN Pain 05/13/22 11/01/24 03/07/24 History (Arthritis Pain (diclofenac)) telmisartan 40 mg tablet 40 mg PO BID 05/13/22 11/01/24 10/17/24 History spironolactone 25 mg tablet 25 mg PO DAILY 06/15/22 11/01/24 10/17/24 History albuterol sulfate 2.5 mg/3 mL 2.5 mg inhalation Q6-8H PRN 12/28/22 11/01/24 03/20/24 History (0.083 %) solution for nebulization shortness of breath or wheezing aspirin 81 mg capsule 81 mg PO DAILY 03/08/24 11/01/24 03/07/24 History cholecalciferol (vitamin D3) 50 2,000 unit PO DAILY 03/08/24 11/01/24 10/17/24 History mcg (2,000 unit) capsule omega 3 350 mg-dha 235 mg-epa 90 1 cap PO DAILY 03/08/24 11/01/24 10/17/24 History mg-fish oil 597 mg capsule,delay rel ([place]-3) vibegron 75 mg tablet (Gemtesa) 75 mg PO DAILY 03/08/24 11/01/24 10/16/24 History CPAP 05/21/24 10/17/24 Unknown History Pain Pump 05/21/24 11/01/24 Unknown History furosemide 20 mg tablet (Lasix) 20 mg PO QPM PRN weight gain 05/21/24 11/01/24 Unknown History guaifenesin 600 mg tablet, 600 mg PO Q12H PRN congestion 05/21/24 11/01/24 Unknown History extended release 12 hr (Mucinex) loratadine 10 mg tablet (Claritin) 10 mg PO DAILY PRN allergy symptoms 05/21/24 11/01/24 Unknown History oxygen 05/21/24 10/17/24 Unknown History Allergies Allergy/AdvReac Type Severity Reaction Status Date / Time clindamycin Allergy Severe Chills Verified 11/12/24 11:17 diazepam Allergy Severe suicidal Verified 11/12/24 11:17 ideation levofloxacin (From Levaquin) Allergy Intermediate Itching Verified 11/12/24 11:17 cat dander Allergy Unknown Sinusitis Verified 11/12/24 11:17 dog dander Allergy Unknown Sinusitis Verified 11/12/24 11:17 feathers Allergy Unknown Sinusitis Verified 11/12/24 11:17 grass pollen Allergy Unknown Sinusitis Verified 11/12/24 11:17 house dust Allergy Unknown Sinusitis Verified 11/12/24 11:17 Rabbit Allergy Unknown Sinusitis Verified 11/12/24 11:17 tree and shrub pollen Allergy Unknown Sinusitis Verified 11/12/24 11:17 adhesive tape Allergy Redness of Verified 11/12/24 11:17 Skin silicone Allergy Unknown Verified 11/12/24 11:17 meperidine (From Demerol) AdvReac Hallucinati Verified 11/12/24 11:17 ng oxycodone (From Percocet) AdvReac Nausea Verified 11/12/24 11:17 propoxyphene AdvReac Nausea and Verified 11/12/24 11:17 Vomiting Review of Systems Review of Systems: All systems reviewed & are unremarkable except as noted in HPI and below PMFSH Past Medical History Medical History Femur fracture, right Surgical screws Fracture, foot Right Metatarsal Anemia Undifferentiated connective tissue disease Depression with anxiety COPD (chronic obstructive pulmonary disease) NBA on CPAP Dementia History of ARDS Diastolic dysfunction History of nuclear stress test History of abnormal electrocardiogram Genevieve's thyroiditis Rosacea w/ ocular involvement Depression History of rectocele History of migraine headaches Spondylosis of cervical spine Arthralgia H/O antinuclear antibodies intermittent +ABRAM to 1:320 Vascular disorder seronegative collagen disorder History of squamous cell carcinoma History of staph infection Chronic left shoulder pain arthritis; possibly inflammatory Fracture, rib Aftercare following finger joint replacement surgery Thyroiditis Scoliosis History of left heart catheterization Tubal ligation evaluation Enlarged ureter Supplemental oxygen dependent Hypertension Fibromyalgia CHF (congestive heart failure) Surgical History Surgical History History of cataract extraction with lens replacement History of arthroplasty of knee Left History of removal of pigmented skin lesion Nose 2021 History of hysterectomy Total History of ERCP History of fusion of lumbar spine L2-L5 lumbar fusion Titanium History of laminectomy History of total knee replacement History of cholecystectomy 2002 History of tubal ligation History of D&C History of hip surgery right Total knee replacement status Previous back surgery S/P peroneal tendon repair History of surgical removal of ganglion cyst 1960 H/O hernia repair 1947 Family History Family History Unknown No problems noted. Mother Esophageal cancer Other Alcohol abuse Cancer Hypertension Social History Social History Social History: She lives with her and has 3 biologic children. She also has 1 adopted child. 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 She is a former smoker. Code status full code Smoking packs per day: 1 Smoking cigarettes per day: 20.0 Years smoked: 10 Smoking pack-years: 10.00 Smoking status: Former smoker Tobacco type: cigarettes Smoking end date: 11/23/81 Additional smoking assessment comments: quit 1982 Alcohol intake: current Alcohol use details: 0-1 per week Substance use: unknown Substance use type: does not use Other substance usage details: social occassions Lack of Transportation: No Lack of Food: Never True Current Housing: I Have Housing Concerned About Future Housing: No Difficulty Paying Gas/Electric Bills: No Difficulty Paying for Meds: No Currently Unemployed: No Education: Decline to Answer Difficulty w/ Childcare or Family Care: No Living arrangements: with family Additional living arrangements comments: [facility]. Occupation/Education: retired Gender identity (if verbalized by the patient): Female Spiritual care concerns: No Agree to blood products: Yes Exam Narrative: APPEARANCE: Ill-appearing HEAD: normocephalic, atraumatic. EYES: PERRLA/EOMI, conjunctivae clear. NOSE: Normal no drainage EARS:TMS clear with good light reflex. THROAT: Pharynx clear, no exudate. NECK: Supple. No adenopathy, no masses. RESPIRATORY: Expiratory wheeze and cough CARDIOVASCULAR: Regular rate and rhythm without murmurs rubs or gallops. ABDOMINAL: Soft, nontender, nondistended, normal bowel sounds MUSCULOSKELETAL: Moves all extremities. Strength/ROM intact, No edema, No calf tenderness. NEURO: Alert. Cranial nerves II through XII intact. Good gait. Good coordination SKIN: Warm, dry. Normal Color Course Vital Signs Vital signs: Vital Signs Pulse Rate 63 02/10/25 15:18 Respiratory Rate 30 H 02/10/25 15:18 Pulse Oximetry 95 02/10/25 15:18 Oxygen Delivery Nasal Cannula 02/10/25 15:18 Oxygen Flow Rate 4 02/10/25 15:18 Pulse Rate 68 02/10/25 17:35 Respiratory Rate 25 H 02/10/25 17:35 Pulse Oximetry 94 02/10/25 15:25 Oxygen Delivery BiPAP 02/10/25 17:34 Oxygen Flow Rate 4 02/10/25 15:25 [facility] Narrative Medical decision making narrative: 79-year-old female presents emergency department for evaluation for persistent cough it has been ongoing for the past 2 days. Patient does have history of asthma and is normal into the ears of oxygen binasal cannula. Patient had increased oxygen requirement today. Patient is currently afebrile with no leukocytosis hemoglobin of 8.5 which is not for from her typical baseline. ABG showed no significant abnormalities. Patient did initially improve after her albuterol breathing treatment but then had worsening breathing again. Patient was placed on BiPAP and had improved work of breathing and oxygenation. Patient was started on antibiotics for concern for underlying pneumonia. Case was discussed with hospitalist patient was accepted for the IMU. Differential Diagnosis Differential Diagnosis: Pneumonia, COVID, RSV, influenza, COPD, CHF Lab Data [facility] Lab Attestation statement: I personally reviewed the patient's lab results. 02/10/25 15:31 02/10/25 15:31 Labs: Lab Results 02/10/25 02/10/25 Range/Units 15:31 15:32 WBC 7.0 (4.5-10.0) K/mm3 RBC 2.74 L (4.2-5.4) M/mm3 Hgb 8.5 L (12.0-15.0) g/dL Hct 26.4 L (37.0-47.0) % MCV 96.4 (80-100) fl MCH 31.0 (26-34) pg MCHC 32.2 (32-36) g/dl RDW 15.0 H (11.5-14.5) % Plt Count 132 L (150-375) k/mm3 MPV 10.7 H (7.4-10.4) fl Immature Gran % (Auto) Not Reportable Neut % (Auto) Not Reportable Lymph % (Auto) Not Reportable [facility] % (Auto) Not Reportable Eos % (Auto) Not Reportable Baso % (Auto) Not Reportable Lymph # (Auto) Not Reportable [facility] # (Auto) Not Reportable Eos # (Auto) Not Reportable Baso # (Auto) Not Reportable Abs Immat Gran (auto) Not Reportable Absolute Neuts (auto) Not Reportable Absolute Nucleated RBC Not Reportable Total Counted 100 Neutrophils % (Manual) 73 (46-73) % Band Neutrophils % 1 (0-6) % Lymphocytes % (Manual) 9 L (18-44) % Monocytes % (Manual) 15 H (3-9) % Eosinophils % (Manual) 2 (0-4) % Basophils % (Manual) 0 (0-1) % Nucleated RBC % Not Reportable Abs Neuts (Manual) 5.18 (1.3-6.7) K/mm3 Abs Lymphs (Manual) 0.63 L (1.1-4.5) K/mm3 Abs Monocytes (Manual) 1.05 H (0.1-0.90) K/mm3 Absolute Eos (Manual) 0.14 (0.02-0.50) K/mm3 Abs Basophils (Manual) 0.00 (0.0-0.1) K/mm3 Platelet Estimate Slightly decreased (Adequate) Large Platelets Present % Immature Plt Fraction 5.9 (0.9-11.2) % Tear Drop Cells 1+ Ovalocytes 1+ Regi Cells Occasional Bite Cells Occasional Schistocytes Occasional PT 14.7 (11.1-14.7) Seconds INR 1.1 APTT 36.9 H (22.3-36.8) Seconds Methemoglobin 0.1 (0-1.5) %THb Sodium 128 L (137-145) mmol/L Potassium 4.8 (3.4-5.0) mmol/L Chloride 97 L (98-107) mmol/L Carbon Dioxide 25 (22-30) mmol/L Anion Gap 6 (4-12) mmol/L BUN 11 (7-17) mg/dL Creatinine 0.79 (0.7-1.0) mg/dL Estim Creat Clear Calc Not Reportable Estimated GFR > 60 (59 - ) Glucose 91 (65-110) mg/dL Calcium 9.2 (8.4-10.2) mg/dL Total Bilirubin 0.9 (0.2-1.3) mg/dL AST 23 (14-36) U/L ALT 13 (6-35) U/L Alkaline Phosphatase 85 (38-126) U/L NT-Pro-B Natriuret Pep 3760 H (19.9-100) pg/mL Total Protein 7.2 (6.3-8.2) g/dL Albumin 4.1 (3.5-5.1) g/dL Influenza A (RT-PCR) Negative (Negative) Influenza B (RT-PCR) Negative (Negative) RSV (RT-PCR) Negative (Negative) SARS-CoV-2 RNA (RT-PCR) Negative (Negative) ABG Data ABG results: 02/10/25 15:32 Puncture Site Left radial ABG pH 7.402 ABG pCO2 38.3 ABG pO2 75.3 L ABG PO2/FiO2 Ratio 2.09 ABG HCO3 23.3 ABG O2 Saturation 95.2 ABG O2 Content 12.0 L ABG Base Excess -1.3 A-a Gradient 137.0 Oxyhemoglobin 93.0 Carboxyhemoglobin 1.5 Reduced Hemoglobin 5.4 H Total Hemoglobin 9.1 L O2 Delivery Device Nasal cannula O2 Liters/Min 4.0 FiO2 36 Imaging Data Attestation: I personally reviewed and interpreted this imaging study as follows: Radiologist's impression: ITS Impressions Chest X-Ray 02/10/25 16:03 Impression: CHF. Superimposed probable pneumonia. The findings appear progressed compared to the previous study. Discharge Plan Discharge Clinical Impression: Pneumonia, Hypoxia Patient Disposition: Still a Patient Condition: Serious
[2025-02-10 15:35] LABS: Alveolar/Arterial O2 Gradient 137.0 mmHg; Carboxyhemoglobin 1.5 % THb (0-2.0); Fractional Inspired Oxygen 36 %; HCO3 ABG 23.3 mEq/l (22.0-26.0); Methemoglobin ABG 0.1 %THb (0-1.5); Oxygen Content ABG 12.0 %vol (16.0-22.0); Oxygen Saturation ABG 95.2 % (95.0-100.0); PCO2 ABG 38.3 mmHg (35.0-45.0); PO2 ABG 75.3 mmHg (80.0-100.0); PO2 FiO2 Ratio Arterial Blood 2.09 %; Reduced Hemoglobin 5.4 %THb (0-5.0)
[2025-02-10 15:36] LABS: Liters per Minute 4.0 LPM; Modified Allen's Test Pass; Site Drawn LEFT RADIAL
--- NOTE | 2025-02-10 15:36 | ECG_ITS ---
Test Date: 2025-02-10 15:27:48 Measurements Intervals [place] Rate: 60 P: 50 IL: 207 QRS: 36 QRSD: 96 T: 34 QT: 450 QTc: 450 Interpretive Statements SINUS RHYTHM BASELINE ARTIFACT- I, II, AVR, AVL, V2-V3 NORMAL ECG Compared to ECG 03/14/2024 10:47:56 No significant changes Electronically Signed On 02-10-2025 19:33:50 [employer] by Alonzo Sidhu D.O.
[2025-02-10 15:39] LABS: Hematocrit 26.4 % (37.0-47.0); Hemoglobin 8.5 g/dL (12.0-15.0); Immature Platelet Fraction Pct 5.9 % (0.9-11.2); Mean Corpuscular HGB Conc 32.2 g/dl (32-36); Mean Corpuscular Hemoglobin 31.0 pg (26-34); Mean Corpuscular Volume 96.4 fl (80-100); Platelet Count Result 132 k/mm3 (150-375); Red Blood Count 2.74 M/mm3 (4.2-5.4); White Blood Count 7.0 K/mm3 (4.5-10.0)
[2025-02-10 15:49] LABS: Alanine Aminotransferase 13 U/L (6-35); Albumin Level 4.1 g/dL (3.5-5.1); Alkaline Phosphatase 85 U/L (38-126); Anion Gap 6 mmol/L (4-12); Aspartate Amino Transferase 23 U/L (14-36); Bilirubin,Total 0.9 mg/dL (0.2-1.3); Blood Urea Nitrogen 11 mg/dL (7-17); Calcium 9.2 mg/dL (8.4-10.2); Carbon Dioxide 25 mmol/L (22-30); Chloride 97 mmol/L (98-107); Estimated Glomerular Filt Rate > 60; Glucose 91 mg/dL (65-110); INR 1.1; Potassium 4.8 mmol/L (3.4-5.0); Prothrombin Time 14.7 Seconds (11.1-14.7); Sodium 128 mmol/L (137-145); Total Protein 7.2 g/dL (6.3-8.2)
[2025-02-10 15:50] LABS: Partial Thromboplastin Time 36.9 Seconds (22.3-36.8)
[2025-02-10 15:56] LABS: Band Neutrophils Percent 1 % (0-6); Basophils Absolute Manual 0.00 K/mm3 (0.0-0.1); Basophils Percent Manual 0 % (0-1); Eosinophils Absolute Manual 0.14 K/mm3 (0.02-0.50); Eosinophils Percent Manual 2 % (0-4); Lymphocytes Absolute Manual 0.63 K/mm3 (1.1-4.5); Lymphocytes Percent Manual 9 % (18-44); Monocytes Absolute Manual 1.05 K/mm3 (0.1-0.90); Monocytes Percent Manual 15 % (3-9); Neutrophils Absolute Manual 5.18 K/mm3 (1.3-6.7); Neutrophils Percent Manual 73 % (46-73); Total Cells Counted 100
[2025-02-10 15:57] LABS: Ovalocytes 1+; Tear Drop Cells 1+
[2025-02-10 15:59] LABS: Burr Cells Occasional; Schistocytes Occasional
[2025-02-10 16:15] LABS: Influenza A QL RT-PCR Negative (Negative); Influenza B QL RT-PCR Negative (Negative); RSV RNA, RT-PCR Negative (Negative); SARS-CoV-2 RNA PCR Negative (Negative)
[2025-02-10] MEDS: cefTRIAXone 1 GM in SODIUM CHLORIDE 0.9% IV 50 ML 100 ML IVPB (17:20)
[2025-02-10] MEDS: ALBUTEROL SULFATE NEB 2.5 MG/3 ML INH INHALATION (17:25)
[2025-02-10 17:44] LABS: NT Pro B Type Natriuretic Pept 3760 pg/mL (19.9-100)
--- NOTE | 2025-02-10 19:23 | PM.IMHP2 ---
H&P: HPI History of Present Illness Date/Time: 02/10/25 19:23 Chief Complaint: Shortness of Breath Narrative: 79 y/o F with PMH of dementia, chronic respiratory failure, diastolic dysfunction, anemia, COPD, hypertension, fibromyalgia among other chronic medical conditions presents here with shortness of breath. The patient presents here from [facility] on 02/10 for further evaluation of shortness of breath. HPI obtained through the patient report and the patient's . Per the patient's has been she had an asthma exacerbation on (02/07). She was treated with a nebulizer and they thought it had improved that day. However she developed shortness of breath the next day on Tuesday (02/08). Her has been giving her nebulizers every 6 hours while she is awake for the past few days. despite this intervention she has continued to have worsening shortness of breath. SOB is accompanied by a productive cough, sputum production as intermittent and scant. She has a past medical history significant for asthma, COPD, and chronic respiratory failure on 2L NC at baseline. for the patient's , any time she would exert herself such as ambulating her oxygen for drop into the 80s despite compliance with her chronic O2. Additionally has had mild lower extremity edema that has developed within the last 24 hours. Initial VS at presentation: HR 63, R 30, 95% on 4 L nasal cannula, current BP 117/76. ED workup showed: No leukocytosis, hemoglobin 8.5 (near baseline), normal coags, ABG with no significant derangements, sodium 128 (previously 131 in October of 2024, chronic), creatinine 0.79 and GFR >60, BNP 3760. CXR showed CHF with superimposed probable pneumonia. Review of Systems Review of Systems: All systems reviewed & are unremarkable except as noted in HPI and below PMFSH Past Medical History Medical History Femur fracture, right Surgical screws Fracture, foot Right Metatarsal Anemia Undifferentiated connective tissue disease Depression with anxiety COPD (chronic obstructive pulmonary disease) NBA on CPAP Dementia History of ARDS Diastolic dysfunction History of nuclear stress test History of abnormal electrocardiogram Genevieve's thyroiditis Rosacea w/ ocular involvement Depression History of rectocele History of migraine headaches Spondylosis of cervical spine Arthralgia H/O antinuclear antibodies intermittent +ABRAM to 1:320 Vascular disorder seronegative collagen disorder History of squamous cell carcinoma History of staph infection Chronic left shoulder pain arthritis; possibly inflammatory Fracture, rib Aftercare following finger joint replacement surgery Thyroiditis Scoliosis History of left heart catheterization Tubal ligation evaluation Enlarged ureter Supplemental oxygen dependent Hypertension Fibromyalgia CHF (congestive heart failure) Surgical History Surgical History History of cataract extraction with lens replacement History of arthroplasty of knee Left History of removal of pigmented skin lesion Nose 2021 History of hysterectomy Total History of ERCP History of fusion of lumbar spine L2-L5 lumbar fusion Titanium History of laminectomy History of total knee replacement History of cholecystectomy 2002 History of tubal ligation History of D&C History of hip surgery right Total knee replacement status Previous back surgery S/P peroneal tendon repair History of surgical removal of ganglion cyst 1960 H/O hernia repair 1947 Family History Family History Unknown No problems noted. Mother Esophageal cancer Other Alcohol abuse Cancer Hypertension Social History Social History Social History: She lives with her and has 3 biologic children. She also has 1 adopted child. 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 She is a former smoker. Code status full code Smoking packs per day: 1 Smoking cigarettes per day: 20.0 Years smoked: 10 Smoking pack-years: 10.00 Smoking status: Former smoker Tobacco type: cigarettes Smoking end date: 11/23/81 Additional smoking assessment comments: quit 1981 Alcohol intake: current Alcohol use details: 0-1 per week Substance use: unknown Substance use type: does not use Other substance usage details: social occassions Lack of Transportation: No Lack of Food: Never True Current Housing: I Have Housing Concerned About Future Housing: No Difficulty Paying Gas/Electric Bills: No Difficulty Paying for Meds: No Currently Unemployed: No Education: Decline to Answer Difficulty w/ Childcare or Family Care: No Living arrangements: with family Additional living arrangements comments: [facility]. Occupation/Education: retired Gender identity (if verbalized by the patient): Female Spiritual care concerns: No Agree to blood products: Yes Meds Home Medications and Allergies Home Medications ?Medication ?Instructions ?Recorded ?Confirmed ?Type docusate sodium 100 mg capsule 100 mg PO BID 11/18/21 11/01/24 History diclofenac sodium 1 % topical gel 4 g topical QID PRN Pain 05/13/22 11/01/24 History (Arthritis Pain (diclofenac)) telmisartan 40 mg tablet 40 mg PO BID 05/13/22 11/01/24 History spironolactone 25 mg tablet 25 mg PO DAILY 06/15/22 11/01/24 History albuterol sulfate 2.5 mg/3 mL 2.5 mg inhalation Q6-8H PRN 12/28/22 11/01/24 History (0.083 %) solution for nebulization shortness of breath or wheezing naloxone 4 mg/actuation nasal spray 4 mg intranasal Q2-3M PRN opioid 03/22/23 11/01/24 Rx overdose #2 ea fluticasone fur. 200 mcg-umeclid 1 inh inhalation DAILY #180 ea 12/27/23 11/01/24 Rx 62.5 mcg-vilant 25 mcg inhalat.powder (Trelegy Ellipta) albuterol sulfate 90 mcg/actuation 1 - 2 puff inhalation Q4-6H PRN 02/21/24 11/01/24 Rx aerosol inhaler shortness of breath or wheezing #25.5 grams aspirin 81 mg capsule 81 mg PO DAILY 03/08/24 11/01/24 History cholecalciferol (vitamin D3) 50 2,000 unit PO DAILY 03/08/24 11/01/24 History mcg (2,000 unit) capsule omega 3 350 mg-dha 235 mg-epa 90 1 cap PO DAILY 03/08/24 11/01/24 History mg-fish oil 597 mg capsule,delay rel (Mccook-3) vibegron 75 mg tablet (Gemtesa) 75 mg PO DAILY 03/08/24 11/01/24 History CPAP 05/21/24 10/17/24 History Pain Pump 05/21/24 11/01/24 History furosemide 20 mg tablet (Lasix) 20 mg PO QPM PRN weight gain 05/21/24 11/01/24 History guaifenesin 600 mg tablet, 600 mg PO Q12H PRN congestion 05/21/24 11/01/24 History extended release 12 hr (Mucinex) loratadine 10 mg tablet (Claritin) 10 mg PO DAILY PRN allergy symptoms 05/21/24 11/01/24 History oxygen 05/21/24 10/17/24 History lidocaine 5 % topical patch See Rx Instructions .Route 07/23/24 11/01/24 Rx .COMPLEX #90 patches amlodipine 10 mg tablet 10 mg PO DAILY #90 tabs 08/27/24 11/01/24 Rx fluoxetine 20 mg capsule 20 mg PO TID #270 caps 08/27/24 11/01/24 Rx gabapentin 300 mg capsule 300 mg PO TID #270 caps 08/27/24 11/01/24 Rx montelukast 10 mg tablet 10 mg PO DAILY #90 tabs 08/27/24 11/01/24 Rx pantoprazole 40 mg tablet,delayed 40 mg PO BID #180 tabs 08/27/24 11/01/24 Rx release pravastatin 40 mg tablet 40 mg PO DAILY #90 tabs 08/27/24 11/01/24 Rx levothyroxine 150 mcg tablet 150 mcg PO DAILY #90 tabs 08/28/24 11/01/24 Rx (Synthroid) nebivolol 10 mg tablet (Bystolic) 10 mg PO DAILY #90 tabs 08/28/24 11/01/24 Rx folic acid 1 mg tablet 1 mg PO DAILY #90 tabs 09/03/24 11/01/24 Rx nystatin 100,000 unit/gram topical 1 applic topical BID PRN rash #60 11/01/24 11/01/24 Rx powder grams donepezil 5 mg tablet 5 mg PO QHS #90 tabs 02/06/25 Rx Allergies Allergy/AdvReac Type Severity Reaction Status Date / Time clindamycin Allergy Severe Chills Verified 11/12/24 11:17 diazepam Allergy Severe suicidal Verified 11/12/24 11:17 ideation levofloxacin (From Levaquin) Allergy Intermediate Itching Verified 11/12/24 11:17 cat dander Allergy Unknown Sinusitis Verified 11/12/24 11:17 dog dander Allergy Unknown Sinusitis Verified 11/12/24 11:17 feathers Allergy Unknown Sinusitis Verified 11/12/24 11:17 grass pollen Allergy Unknown Sinusitis Verified 11/12/24 11:17 house dust Allergy Unknown Sinusitis Verified 11/12/24 11:17 Rabbit Allergy Unknown Sinusitis Verified 11/12/24 11:17 tree and shrub pollen Allergy Unknown Sinusitis Verified 11/12/24 11:17 adhesive tape Allergy Redness of Verified 11/12/24 11:17 Skin silicone Allergy Unknown Verified 11/12/24 11:17 meperidine (From Demerol) AdvReac Hallucinati Verified 11/12/24 11:17 ng oxycodone (From Percocet) AdvReac Nausea Verified 11/12/24 11:17 propoxyphene AdvReac Nausea and Verified 11/12/24 11:17 Vomiting Vital Signs Vital Signs - 24 hr 02/10/25 15:18 02/10/25 15:25 02/10/25 15:32 Pulse Rate 63 67 Respiratory Rate 30 H 16 Pulse Oximetry 95 94 Oxygen Delivery Nasal Cannula Nasal Cannula Oxygen Flow Rate 4 4 02/10/25 15:45 02/10/25 17:25 02/10/25 17:34 Pulse Rate 61 74 Respiratory Rate 21 H 16 25 H Pulse Oximetry Oxygen Delivery BiPAP Oxygen Flow Rate 02/10/25 17:35 Pulse Rate 68 Respiratory Rate 25 H Pulse Oximetry Oxygen Delivery Oxygen Flow Rate Exam Const: General: comfortable and no acute distress Other: , female elderly, nontoxic appearance HENMT: Face/Nose/Sinus: Normal nares present Mouth: Yes moist mucous membranes Eyes: General: appearance normal, both eyes and all related structures Sclera: sclerae normal Pupils: Equal, round and reactive pupils present EOM: EOMs intact bilaterally Resp: Other: mild tachypnea without accessory muscle use. Tolerating BiPAP well. Expiratory wheezing bilaterally. Faint bibasilar crackles. Cardio: Rate: regular rate Rhythm: regular rhythm Other: S1-S2 present without murmur, rub, ectopy GI: Other: Abdomen soft, nondistended, nontender. Normoactive bowel sounds in all quadrants. Skin: General skin exam: normal color and no rashes or lesions noted Other: Ecchymosis to the left forearm in no particular pattern. Neuro: Speech: normal speech Motor exam (neuro): 5/5 motor strength present throughout Sensory Exam: normal sensation Other: Alert and orientated times 2-3. Extrem: Other: Trace to 1+ pitting edema, symmetric Psych: Mental Status: mental status grossly normal Affect: normal affect Other: fair insight and judgment, pleasant. No current hallucinations. Results Labs Labs: Short CBC 02/10/25 Range/Units 15:31 WBC 7.0 (4.5-10.0) K/mm3 Hgb 8.5 L (12.0-15.0) g/dL Hct 26.4 L (37.0-47.0) % Plt Count 132 L (150-375) k/mm3 BMP 02/10/25 15:31 Sodium 128 L Potassium 4.8 Chloride 97 L Carbon Dioxide 25 BUN 11 Creatinine 0.79 Glucose 91 Calcium 9.2 Liver Function 02/10/25 Range/Units 15:31 Total Bilirubin 0.9 (0.2-1.3) mg/dL AST 23 (14-36) U/L ALT 13 (6-35) U/L Alkaline Phosphatase 85 (38-126) U/L Albumin 4.1 (3.5-5.1) g/dL Quality VTE Prophylaxis VTE prophylaxis: pharmacologic ordered Assessment and Plan Assessment and plan (1) Acute and chronic respiratory failure: Qualifiers: Respiratory failure complication: hypoxia Qualified Code(s): J96.21 - Acute and chronic respiratory failure with hypoxia Code(s): J96.20 - Acute and chronic respiratory failure, unspecified whether with hypoxia or hypercapnia Status: Acute Assessment and Plan: Acute on chronic respiratory failure. At baseline requires 2 L nasal cannula at all times. Now requiring 4 L nasal cannula to maintain O2 sat greater than 92%. Subsequently placed on BiPAP for work of breathing. Initial ABG in the ED showed no significant derangements. Workup/clinical picture concerning for CHF exacerbation, pneumonia, and COPD exacerbation. - Lasix 40 mg daily for CHF exacerbation - broad-spectrum antibiotics and supportive care for pneumonia - started on BiPAP in the ED on 02/10, continued inpatient - schedule DuoNebs and prednisone for COPD exacerbation - continue supplemental oxygen to maintain O2 sat greater than 92%, may wean to baseline O2 requirement as tolerated (2) Pneumonia: Qualifiers: Pneumonia type: due to unspecified organism Laterality: bilateral Lung location: unspecified part of lung Qualified Code(s): J18.9 - Pneumonia, unspecified organism Code(s): J18.9 - Pneumonia, unspecified organism Status: Acute Assessment and Plan: CXR obtained on 02/10 concerning for CHF in superimposed probable pneumonia (Bilateral infiltrates). reporting productive cough. No nausea, vomiting, diarrhea, fever, chills. No leukocytosis. Did not meet SIRS criteria. - started on ceftriaxone and azithromycin 02/10 - supportive care including Mucinex, Tessalon Perles, Tylenol - viral PCR negative on 02/10 (3) Acute exacerbation of CHF (congestive heart failure): Qualifiers: Heart failure type: diastolic Qualified Code(s): I50.33 - Acute on chronic diastolic (congestive) heart failure Code(s): I50.9 - Heart failure, unspecified Status: Acute Assessment and Plan: CXR concerning for moderate pulmonary venous congestion consistent with CHF exacerbation. History of diastolic dysfunction. Last echo in 2022 which showed hyperdynamic systolic function with an estimated EF greater than 70%, grade 1 diastolic dysfunction, LA mildly enlarged, no pulmonary hypertension, mild AV sclerosis. Reports new swelling x1 day prior to arrival. BNP elevated upon admission. - Updated echo - Lasix 40 mg daily, 1st dose today on 02/10 - monitor daily weights and I&Os - monitor renal function (4) COPD (chronic obstructive pulmonary disease): Qualifiers: COPD type: chronic bronchitis Chronic bronchitis type: simple Qualified Code(s): J41.0 - Simple chronic bronchitis Code(s): J44.9 - Chronic obstructive pulmonary disease, unspecified Status: Acute Assessment and Plan: Acute exacerbation of COPD, likely related to acute illness and started on broad-spectrum antibiotics for pneumonia. Patient currently has expiratory wheeze on exam despite nebulizer treatments at home q6h while awake. - DuoNeb scheduled - methylprednisolone IV jose (5) Hypertension: Qualifiers: Hypertension type: primary hypertension Qualified Code(s): I10 - Essential (primary) hypertension Code(s): I10 - Essential (primary) hypertension Status: Chronic Assessment and Plan: - chronic, currently 111/70, stable. - continue home medications - monitor (6) Hypothyroidism: Qualifiers: Hypothyroidism type: acquired Qualified Code(s): E03.9 - Hypothyroidism, unspecified Code(s): E03.9 - Hypothyroidism, unspecified Status: Chronic Assessment and Plan: stable. - TSH 0.713 in October of 2024 - continue Synthroid (7) NBA on CPAP: Code(s): G47.33 - Obstructive sleep apnea (adult) (pediatric); Z99.89 - Dependence on other enabling machines and devices Status: Chronic Assessment and Plan: - continue home CPAP once no longer requiring BiPAP Plan Diet: heart healthy GI Prophylaxis: n/a DVT Prophylaxis: Lovenox SQ IV fluids: none, diuresing Lines/Tubes: pIV Code Status: full code Prior Studies I have reviewed the following patient records and this information was taken into consideration when formulating the assessment and plan.: previous labs, previous ER visits, previous hospitalizations and previous clinic visits Time Spent with Patient Time with patient: less than 45 minutes Hospitalist MIPS Advance Care Plan I have confirmed that the patient's Advanced Care Plan is present, code status is documented, or surrogate decision maker is listed in patient medical record.: Yes Medication Reconciliation I have utilized all available resources to obtain, update and review the patients current medications (includes all prescriptions, OTC, herbals, cannabis, and nutritional supplements).: Yes
[2025-02-10] MEDS: AZITHROMYCIN IV 500 MG in SODIUM CHLORIDE 0.9% IV 250 ML IVPB (19:57)
--- NOTE | 2025-02-10 20:24 | PC.NURSE ---
2020-PATIENT'S BED SATURATED WITH URINE. NO URINE IN CANISTER FROM PREVIOUS PURE WICK INSERTION. COMPLETE LINEN CHANGE AND PARTIAL BED BATH GIVEN. NEW PURE WICK APPLIED AND SUCTION CHECKED FOR APPROPRIATE SETTING. PILLOW GIVEN FOR COMFORT.
[2025-02-10] MEDS: IPRATROPIUM 0.5 MG/ALBUTEROL SULFATE 2.5 MG (BASE) AMPUL.NEB 3 ML INHALATION (20:54)
[2025-02-10] MEDS: FUROSEMIDE INJ 40 MG/4 ML VIAL IV PUSH (22:14)
--- NOTE | 2025-02-10 23:33 | PC.NURSE ---
Report received from ELVIN Bhagat. Assumed care of patient at this time.
[2025-02-10] MEDS: guaiFENesin 12 HR 600 MG TABCR PO (23:59)
[2025-02-11] VITALS (70 sets, daily range): BP systolic 70–177; BP diastolic 58–97; PULSE 72–114; RESP 11–27; TEMP 36.7–37; O2SAT 91–100; BMI 36.9
[2025-02-11] MEDS: IPRATROPIUM 0.5 MG/ALBUTEROL SULFATE 2.5 MG (BASE) AMPUL.NEB 3 ML INHALATION ×4 (03:10→19:28)
[2025-02-11 07:32] LABS: Hematocrit 25.4 % (37.0-47.0); Hemoglobin 8.3 g/dL (12.0-15.0); Immature Platelet Fraction Pct 6.6 % (0.9-11.2); Mean Corpuscular HGB Conc 32.7 g/dl (32-36); Mean Corpuscular Hemoglobin 31.0 pg (26-34); Mean Corpuscular Volume 94.8 fl (80-100); Platelet Count Result 125 k/mm3 (150-375); Red Blood Count 2.68 M/mm3 (4.2-5.4); White Blood Count 7.7 K/mm3 (4.5-10.0)
[2025-02-11 07:53] LABS: Add Urine Microscopic? YES; Appearance Urine Clear (Clear); Glucose Urine UA Negative (Negative); Leukocyte Esterase Ur Negative LEU/UL (Negative); Nitrate Urine Negative (Negative); Non Pathogenic Casts 0-2; Specific Grav Ur 1.009 (1.001-1.035)
[2025-02-11 07:55] LABS: Anion Gap 9 mmol/L (4-12); Blood Urea Nitrogen 15 mg/dL (7-17); Calcium 9.6 mg/dL (8.4-10.2); Carbon Dioxide 24 mmol/L (22-30); Chloride 96 mmol/L (98-107); Estimated CRCL calculation 56 ml/min; Estimated Glomerular Filt Rate > 60; Glucose 166 mg/dL (65-110); Potassium 4.4 mmol/L (3.4-5.0); Sodium 129 mmol/L (137-145)
[2025-02-11 07:57] LABS: Band Neutrophils Percent 3 % (0-6); Lymphocytes Absolute Manual 0.23 K/mm3 (1.1-4.5); Lymphocytes Percent Manual 3 % (18-44); Neutrophils Absolute Manual 7.46 K/mm3 (1.3-6.7); Neutrophils Percent Manual 94 % (46-73); Schistocytes None Seen; Total Cells Counted 100
[2025-02-11 07:58] LABS: Smudge Cells PRESENT
[2025-02-11] MEDS: FUROSEMIDE INJ 40 MG/4 ML VIAL IV PUSH (09:32)
[2025-02-11] MEDS: ENOXAPARIN 40 MG/0.4 ML SYRINGE SUB-Q (09:36)
[2025-02-11] MEDS: guaiFENesin 12 HR 600 MG TABCR PO ×2 (09:38→21:40)
--- NOTE | 2025-02-11 10:13 | P.PNIM_ITS ---
Assessment and Plan Assessment and Plan (1) Acute and chronic respiratory failure: Qualifiers: Respiratory failure complication: hypoxia Qualified Code(s): J96.21 - Acute and chronic respiratory failure with hypoxia Code(s): J96.20 - Acute and chronic respiratory failure, unspecified whether with hypoxia or hypercapnia Status: Acute Assessment and Plan: Acute on chronic respiratory failure. At baseline requires 2 L nasal cannula at all times. Now requiring 4 L nasal cannula to maintain O2 sat greater than 92%. Subsequently placed on BiPAP for work of breathing. Initial ABG in the ED showed no significant derangements. Workup/clinical picture concerning for CHF exacerbation, pneumonia, and COPD exacerbation. * Lasix 40 mg daily for CHF exacerbation * broad-spectrum antibiotics and supportive care for pneumonia * started on BiPAP in the ED on 02/10, continued inpatient * schedule DuoNebs and prednisone for COPD exacerbation * continue supplemental oxygen to maintain O2 sat greater than 92%, may wean to baseline O2 requirement as tolerated * Will attempt to wean off BiPAP again today (2) Pneumonia: Qualifiers: Laterality: bilateral Lung location: unspecified part of lung Pneumonia type: due to unspecified organism Qualified Code(s): J18.9 - Pneumonia, unspecified organism Code(s): J18.9 - Pneumonia, unspecified organism Status: Acute Assessment and Plan: * CXR concerning for CHF in superimposed probable pneumonia (Bilateral infiltrates). * reporting productive cough. No nausea, vomiting, diarrhea, fever, chills. No leukocytosis. Did not meet SIRS criteria. * started on ceftriaxone and azithromycin 02/10 * supportive care including Mucinex, Tessalon Perles, Tylenol * viral PCR negative on 02/10 (3) Acute exacerbation of CHF (congestive heart failure): Qualifiers: Heart failure type: diastolic Qualified Code(s): I50.33 - Acute on chronic diastolic (congestive) heart failure Code(s): I50.9 - Heart failure, unspecified Status: Acute Assessment and Plan: * CXR concerning for moderate pulmonary venous congestion consistent with CHF exacerbation. * History of diastolic dysfunction. * Last echo in 2022 which showed hyperdynamic systolic function with an estimated EF greater than 70%, grade 1 diastolic dysfunction, LA mildly enlarged, no pulmonary hypertension, mild AV sclerosis. * Reports new swelling x1 day prior to arrival. BNP elevated upon admission. * Update echo * Lasix 40 mg daily, 1st dose today on 02/10 * monitor daily weights and I&Os * monitor renal function (4) COPD (chronic obstructive pulmonary disease): Qualifiers: COPD type: chronic bronchitis Chronic bronchitis type: simple Qualified Code(s): J41.0 - Simple chronic bronchitis Code(s): J44.9 - Chronic obstructive pulmonary disease, unspecified Status: Acute Assessment and Plan: * Acute exacerbation of COPD, likely related to acute illness and started on broad-spectrum antibiotics for pneumonia. * DuoNeb scheduled * methylprednisolone IV jose (5) Hypertension: Qualifiers: Hypertension type: primary hypertension Qualified Code(s): I10 - Essential (primary) hypertension Code(s): I10 - Essential (primary) hypertension Status: Chronic Assessment and Plan: * chronic, currently 111/70, stable. * continue home medications * monitor (6) Hypothyroidism: Qualifiers: Hypothyroidism type: acquired Qualified Code(s): E03.9 - Hypothyroidism, unspecified Code(s): E03.9 - Hypothyroidism, unspecified Status: Chronic Assessment and Plan: * Stable * TSH 0.713 in October of 2024 * continue Synthroid (7) NBA on CPAP: Code(s): G47.33 - Obstructive sleep apnea (adult) (pediatric); Z99.89 - Dependence on other enabling machines and devices Status: Chronic Assessment and Plan: * continue home CPAP once no longer requiring BiPAP Plan Diet: heart healthy GI Prophylaxis: n/a DVT Prophylaxis: Lovenox SQ IV fluids: none, diuresing Lines/Tubes: pIV Code Status: full code Medical Record Review I have reviewed the following patient records and this information was taken into consideration when formulating the assessment and plan.: previous labs and previous ER visits Subjective Date/time seen: 02/11/25 10:13 Interval history: 79 y/o F with PMH of dementia, chronic respiratory failure, diastolic dysfunction, anemia, COPD, hypertension, fibromyalgia among other chronic medical conditions presents here with shortness of breath. 02/11/2025 Patient sitting comfortably in bed at time of examination. BiPAP is currently on, however patient denies any shortness of breath, chest pain or nausea/vomiting at this time. O2 saturation is 95%, afebrile. Viral panel negative, sodium still decreased, no other electrolyte abnormalities. Will attempt to wean off BiPAP again today, patient is on 2 L nasal cannula at baseline. She is endorsing feeling much better today. Antibiotics for pneumonia. Review of Systems Review of Systems: All systems reviewed & are unremarkable except as noted in HPI and below Exam Const: General: comfortable and no acute distress Other: , female elderly, nontoxic appearance HENMT: Face/Nose/Sinus: Normal nares present Mouth: Yes moist mucous membranes Eyes: General: appearance normal, both eyes and all related structures Sclera: sclerae normal Pupils: Equal, round and reactive pupils present EOM: EOMs intact bilaterally Resp: Other: mild tachypnea without accessory muscle use. Tolerating BiPAP well. Expiratory wheezing bilaterally. Faint bibasilar crackles. Cardio: Rate: regular rate Rhythm: regular rhythm Other: S1-S2 present without murmur, rub, ectopy GI: Other: Abdomen soft, nondistended, nontender. Normoactive bowel sounds in all quadrants. Skin: General skin exam: normal color and no rashes or lesions noted Other: Ecchymosis to the left forearm in no particular pattern. Neuro: Cranial nerves: Yes Equal, round and reactive pupils present Speech: normal speech Motor exam (neuro): 5/5 motor strength present throughout Sensory Exam: normal sensation Other: Alert and orientated times 2-3. Extrem: Other: Trace to 1+ pitting edema, symmetric Psych: Mental Status: mental status grossly normal Affect: normal affect Other: fair insight and judgment, pleasant. No current hallucinations. Objective Data Vital Signs Vital Signs: Vital Signs - 24 hr 02/10/25 15:18 02/10/25 15:25 02/10/25 15:32 Temperature Pulse Rate 63 67 Respiratory Rate 30 H 16 Blood Pressure Pulse Oximetry 95 94 Oxygen Delivery Nasal Cannula Nasal Cannula Oxygen Flow Rate 4 4 Fraction of Inspired Oxygen 02/10/25 15:45 02/10/25 17:25 02/10/25 17:34 Temperature Pulse Rate 61 74 Respiratory Rate 21 H 16 25 H Blood Pressure Pulse Oximetry Oxygen Delivery BiPAP Oxygen Flow Rate Fraction of Inspired Oxygen 02/10/25 17:35 02/10/25 19:07 02/10/25 19:07 Temperature Pulse Rate 68 70 Respiratory Rate 25 H 19 19 Blood Pressure Pulse Oximetry 95 97 Oxygen Delivery BiPAP BiPAP Oxygen Flow Rate Fraction of Inspired Oxygen 30 02/10/25 20:56 02/10/25 21:47 02/11/25 00:48 Temperature Pulse Rate 67 73 Respiratory Rate 22 H 18 20 Blood Pressure Pulse Oximetry 94 92 Oxygen Delivery BiPAP Oxygen Flow Rate Fraction of Inspired Oxygen 02/11/25 00:51 02/11/25 01:00 02/11/25 01:01 Temperature Pulse Rate 73 77 75 Respiratory Rate 17 22 H 20 Blood Pressure 177/76 H 172/76 H Pulse Oximetry 95 94 93 Oxygen Delivery Oxygen Flow Rate Fraction of Inspired Oxygen 02/11/25 01:15 02/11/25 01:30 02/11/25 01:45 Temperature Pulse Rate 73 72 72 Respiratory Rate 19 21 H 18 Blood Pressure Pulse Oximetry 92 94 94 Oxygen Delivery Oxygen Flow Rate Fraction of Inspired Oxygen 02/11/25 01:47 02/11/25 02:00 02/11/25 02:00 Temperature Pulse Rate 73 74 Respiratory Rate 19 Blood Pressure 116/80 Pulse Oximetry 94 94 Oxygen Delivery BiPAP Oxygen Flow Rate Fraction of Inspired Oxygen 30 02/11/25 02:00 02/11/25 03:10 02/11/25 03:10 Temperature 98.2 F Pulse Rate 74 76 76 Respiratory Rate 21 H 22 H 22 H Blood Pressure Pulse Oximetry 94 91 Oxygen Delivery BiPAP Oxygen Flow Rate Fraction of Inspired Oxygen 02/11/25 03:23 02/11/25 03:30 02/11/25 03:45 Temperature Pulse Rate 77 78 83 Respiratory Rate 18 19 19 Blood Pressure Pulse Oximetry 93 94 92 Oxygen Delivery Oxygen Flow Rate Fraction of Inspired Oxygen 02/11/25 04:00 02/11/25 04:15 02/11/25 05:30 Temperature 98.2 F Pulse Rate 86 114 H 82 Respiratory Rate 19 27 H 18 Blood Pressure 146/83 H Pulse Oximetry 93 94 Oxygen Delivery Oxygen Flow Rate Fraction of Inspired Oxygen 02/11/25 05:48 02/11/25 06:00 02/11/25 06:15 Temperature Pulse Rate 80 80 77 Respiratory Rate 18 17 16 Blood Pressure Pulse Oximetry 93 92 92 Oxygen Delivery Oxygen Flow Rate Fraction of Inspired Oxygen 02/11/25 06:16 02/11/25 06:30 02/11/25 06:41 Temperature 98.6 F Pulse Rate 80 84 85 Respiratory Rate 17 11 L 20 Blood Pressure 146/67 H 146/67 H Pulse Oximetry 92 95 93 Oxygen Delivery BiPAP Oxygen Flow Rate Fraction of Inspired Oxygen 02/11/25 07:13 02/11/25 08:20 02/11/25 08:20 Temperature 98.4 F Pulse Rate 80 83 84 Respiratory Rate 18 23 H 18 Blood Pressure 150/74 H Pulse Oximetry 94 93 Oxygen Delivery BiPAP Oxygen Flow Rate Fraction of Inspired Oxygen 02/11/25 08:28 02/11/25 09:39 Temperature Pulse Rate 85 85 Respiratory Rate 23 H 19 Blood Pressure 152/65 H Pulse Oximetry 93 Oxygen Delivery Oxygen Flow Rate Fraction of Inspired Oxygen Intake/Output Intake/Output: Intake & Output 02/08/25 02/09/25 02/10/25 02/11/25 23:59 23:59 23:59 23:59 Intake Total 300 Output Total 2220 Balance 300 -2220 Meds/Results Medications: Active Medications Generic Name Dose Route Start Last Admin Trade Name Freq PRN Reason Stop Dose Admin Acetaminophen 650 mg 02/10/25 19:39 Acetaminophen 325 Mg Tablet PO Q6H PRN Mild Pain (1-3) or Fever Albuterol/Ipratropium 3 ml 02/10/25 20:00 02/11/25 08:22 Ipratropium 0.5 Mg/Albuterol Sulfate 2.5 Mg (Base) Ampul.Neb 3 Ml INHALATION 3 ml Q6HRT JOSE Administration Benzonatate 100 mg 02/10/25 19:39 Benzonatate 100 Mg Capsule PO TID PRN Cough Enoxaparin Sodium 40 mg 02/11/25 09:00 02/11/25 09:36 Enoxaparin 40 Mg/0.4 Ml Syringe SUB-Q 40 mg DAILY JOSE Administration Furosemide 40 mg 02/10/25 19:40 02/11/25 09:32 Furosemide Inj 40 Mg/4 Ml Vial IV PUSH 40 mg DAILY JOSE Administration Guaifenesin 600 mg 02/10/25 21:00 02/11/25 09:38 Guaifenesin 12 Hr 600 Mg Tabcr PO 600 mg Q12HR JOSE Administration Ceftriaxone Sodium 1 gm/ 50 mls @ 100 mls/hr 02/11/25 17:00 Sodium Chloride IVPB Q24H JOSE Azithromycin 500 mg/ Sodium 250 mls @ 250 mls/hr 02/11/25 20:00 Chloride IVPB 02/14/25 20:59 Q24H JOSE Methylprednisolone Sodium Succinate 60 mg 02/10/25 21:00 02/11/25 09:33 Methylprednisolone Sod Succ 125 Mg Vial IV PUSH 60 mg Q6H JOSE Administration Radiology Results: ITS Impressions Chest X-Ray 02/10/25 16:03 Impression: CHF. Superimposed probable pneumonia. The findings appear progressed compared to the previous study. Labs Labs: Laboratory Results - last 24 hr 02/10/25 02/10/25 02/11/25 15:31 15:32 07:02 WBC 7.0 7.7 RBC 2.74 L 2.68 L Hgb 8.5 L 8.3 L Hct 26.4 L 25.4 L MCV 96.4 94.8 MCH 31.0 31.0 MCHC 32.2 32.7 RDW 15.0 H 14.9 H Plt Count 132 L 125 L MPV 10.7 H 11.0 H Immature Gran % (Auto) Not Reportable Not Reportable Neut % (Auto) Not Reportable Not Reportable Lymph % (Auto) Not Reportable Not Reportable [place] % (Auto) Not Reportable Not Reportable Eos % (Auto) Not Reportable Not Reportable Baso % (Auto) Not Reportable Not Reportable Lymph # (Auto) Not Reportable Not Reportable [place] # (Auto) Not Reportable Not Reportable Eos # (Auto) Not Reportable Not Reportable Baso # (Auto) Not Reportable Not Reportable Abs Immat Gran (auto) Not Reportable Not Reportable Absolute Neuts (auto) Not Reportable Not Reportable Absolute Nucleated RBC Not Reportable Not Reportable Total Counted 100 100 Neutrophils % (Manual) 73 94 H Band Neutrophils % 1 3 Lymphocytes % (Manual) 9 L 3 L Monocytes % (Manual) 15 H Eosinophils % (Manual) 2 Basophils % (Manual) 0 Nucleated RBC % Not Reportable Not Reportable Abs Neuts (Manual) 5.18 7.46 H Abs Lymphs (Manual) 0.63 L 0.23 L Abs Monocytes (Manual) 1.05 H Absolute Eos (Manual) 0.14 Abs Basophils (Manual) 0.00 Smudge Cells Present Platelet Estimate Slightly decreased Slightly decreased Large Platelets Present % Immature Plt Fraction 5.9 6.6 Tear Drop Cells 1+ Ovalocytes 1+ Regi Cells Occasional Bite Cells Occasional Schistocytes Occasional None seen PT 14.7 INR 1.1 APTT 36.9 H Puncture Site Left radial ABG pH 7.402 ABG pCO2 38.3 ABG pO2 75.3 L ABG PO2/FiO2 Ratio 2.09 ABG HCO3 23.3 ABG O2 Saturation 95.2 ABG O2 Content 12.0 L ABG Base Excess -1.3 A-a Gradient 137.0 Oxyhemoglobin 93.0 Carboxyhemoglobin 1.5 Methemoglobin 0.1 Reduced Hemoglobin 5.4 H Total Hemoglobin 9.1 L O2 Delivery Device Nasal cannula O2 Liters/Min 4.0 FiO2 36 Sodium 128 L 129 L Potassium 4.8 4.4 Chloride 97 L 96 L Carbon Dioxide 25 24 Anion Gap 6 9 BUN 11 15 Creatinine 0.79 0.75 Estim Creat Clear Calc Not Reportable 56 Estimated GFR > 60 > 60 Glucose 91 166 H Calcium 9.2 9.6 Total Bilirubin 0.9 AST 23 ALT 13 Alkaline Phosphatase 85 NT-Pro-B Natriuret Pep 3760 H Total Protein 7.2 Albumin 4.1 Urine Color Urine Appearance Urine pH Ur Specific Perr[place] Urine Protein Urine Glucose (UA) Urine Ketones Ur Blood (Man) Urine Nitrate Urine Bilirubin Urine Urobilinogen Leukocyte Esterase Rfl Urine RBC Urine WBC Ur Squamous Epith Cells Urine Bacteria Urine Casts Influenza A (RT-PCR) Negative Influenza B (RT-PCR) Negative RSV (RT-PCR) Negative SARS-CoV-2 RNA (RT-PCR) Negative 02/11/25 07:38 WBC RBC Hgb Hct MCV MCH MCHC RDW Plt Count MPV Immature Gran % (Auto) Neut % (Auto) Lymph % (Auto) [place] % (Auto) Eos % (Auto) Baso % (Auto) Lymph # (Auto) [place] # (Auto) Eos # (Auto) Baso # (Auto) Abs Immat Gran (auto) Absolute Neuts (auto) Absolute Nucleated RBC Total Counted Neutrophils % (Manual) Band Neutrophils % Lymphocytes % (Manual) Monocytes % (Manual) Eosinophils % (Manual) Basophils % (Manual) Nucleated RBC % Abs Neuts (Manual) Abs Lymphs (Manual) Abs Monocytes (Manual) Absolute Eos (Manual) Abs Basophils (Manual) Smudge Cells Platelet Estimate Large Platelets % Immature Plt Fraction Tear Drop Cells Ovalocytes [place] Cells Bite Cells Schistocytes PT INR APTT Puncture Site ABG pH ABG pCO2 ABG pO2 ABG PO2/FiO2 Ratio ABG HCO3 ABG O2 Saturation ABG O2 Content ABG Base Excess A-a Gradient Oxyhemoglobin Carboxyhemoglobin Methemoglobin Reduced Hemoglobin Total Hemoglobin O2 Delivery Device O2 Liters/Min FiO2 Sodium Potassium Chloride Carbon Dioxide Anion Gap BUN Creatinine Estim Creat Clear Calc Estimated GFR Glucose Calcium Total Bilirubin AST ALT Alkaline Phosphatase NT-Pro-B Natriuret Pep Total Protein Albumin Urine Color Yellow Urine Appearance Clear Urine pH 6.5 Ur Specific [place] 1.009 Urine Protein Negative Urine Glucose (UA) Negative Urine Ketones Trace H Ur Blood (Man) Trace Urine Nitrate Negative Urine Bilirubin Negative Urine Urobilinogen 0.2 Leukocyte Esterase Rfl Negative Urine RBC 0-2 Urine WBC 0-5 Ur Squamous Epith Cells None seen Urine Bacteria None seen Urine Casts 0-2 Influenza A (RT-PCR) Influenza B (RT-PCR) RSV (RT-PCR) SARS-CoV-2 RNA (RT-PCR) Quality VTE Prophylaxis VTE prophylaxis: pharmacologic ordered
--- NOTE | 2025-02-11 11:58 | PC.NURSE ---
This patient, Marialuisa Darden, was admitted to [facility]. Patient/family oriented to hospital policies and general routines including ID bracelet, bed and alarms, visiting hours, pain management, procedures, bathroom and other care routines, personal items, smoking policy, room service/diet, and visiting hours. Information on how to activate the Rapid Response Team has been discussed. Patient/Family are encouraged to report perceived risks to care and to ask questions if they do not understand what they are told or what they should do.
--- NOTE | 2025-02-11 16:00 | PC.NURSE ---
Dinner tray ordered at this time
[2025-02-11] MEDS: cefTRIAXone 1 GM in SODIUM CHLORIDE 0.9% IV 50 ML 100 ML IVPB (17:52)
--- NOTE | 2025-02-11 19:10 | PC.NURSE ---
Report given to ELVIN Sterling
[2025-02-11] MEDS: AZITHROMYCIN IV 500 MG in SODIUM CHLORIDE 0.9% IV 250 ML IVPB (19:57)
--- NOTE | 2025-02-11 20:47 | WPCEDHO ---
ED Hand Off Checklist All vitals saved:yes IV Site documented:yes All med administrations documented:yes Triage Note Triage Note pt to ed from home for SOB that 02/10/25 15:18 started yesterday. Pt normally wears 2L NC at home. EMS states she was satting 88% at home. Pt has hx of asthma and dementia. A& Ox2 on baseline. Denies fever. Allergies clindamycin Allergy (Severe, Verified 02/11/25 11:46) Chills diazepam Allergy (Severe, Verified 02/11/25 11:46) suicidal ideation levofloxacin (From Levaquin) Allergy (Intermediate, Verified 02/11/25 11:46) Itching cat dander Allergy (Unknown, Verified 02/11/25 11:46) Sinusitis dog dander Allergy (Unknown, Verified 02/11/25 11:46) Sinusitis feathers Allergy (Unknown, Verified 02/11/25 11:46) Sinusitis grass pollen Allergy (Unknown, Verified 02/11/25 11:46) Sinusitis [place] Grass house dust Allergy (Unknown, Verified 02/11/25 11:46) Sinusitis Rabbit Allergy (Unknown, Verified 02/11/25 11:46) Sinusitis tree and shrub pollen Allergy (Unknown, Verified 02/11/25 11:46) Sinusitis [place] adhesive tape Allergy (Verified 02/11/25 11:46) Redness of Skin Bandaids silicone Allergy (Verified 02/11/25 11:46) Unknown meperidine (From Demerol) Adverse Reaction (Verified 02/11/25 11:46) Hallucinating oxycodone (From Percocet) Adverse Reaction (Verified 02/11/25 11:46) Nausea propoxyphene Adverse Reaction (Verified 02/11/25 11:46) Nausea and Vomiting Current Diagnoses Hypothyroidism, unspecified (02/11/25) Obstructive sleep apnea (adult) (pediatric) (02/11/25) Essential (primary) hypertension (02/11/25) Acute on chronic diastolic (congestive) heart failure (02/11/25) Pneumonia, unspecified organism (02/11/25) Simple chronic bronchitis (02/11/25) Acute and chronic respiratory failure with hypoxia (02/11/25) Dependence on other enabling machines and devices (02/11/25) Family History (Last Reviewed 02/10/25 @ 19:31 by Eda Richardson APRN) Unknown No problems noted. Mother Esophageal cancer Other Alcohol abuse Cancer Hypertension Active Medications including assessments/comments Albuterol/Ipratropium (Ipratropium 0.5 Mg/Albuterol Sulfate 2.5 Mg (Base) Ampul.Neb 3 Ml) 3 ml INHALATION Q6HRT VIN Last Admin: 02/11/25 19:28 Dose: 3 ml Documented By: [facility] Nebulizer Assessment Document 02/11/25 19:28 [facility] (Rec: 02/11/25 19:28 [facility] [id number]) Updraft Nebulizer Treatment Method Mask Treatment Tolerance Good Admin: 02/11/25 14:13 Dose: 3 ml Documented By: JOHANA BLACKMAN Nebulizer Assessment Document 02/11/25 14:13 RES (Rec: 02/11/25 14:13 RES [id number]) Updraft Nebulizer Treatment Method In-Line Treatment Tolerance Good Admin: 02/11/25 08:22 Dose: 3 ml Documented By: JOHANA MAR Nebulizer Assessment Document 02/11/25 08:22 RES (Rec: 02/11/25 08:22 RES [id number]) Updraft Nebulizer Treatment Method In-Line Treatment Tolerance Good Admin: 02/11/25 03:10 Dose: 3 ml Documented By: [facility] MAR Nebulizer Assessment Document 02/11/25 03:10 [facility] (Rec: 02/11/25 03:10 [facility] [id number]) Updraft Nebulizer Treatment Method In-Line Admin: 02/10/25 20:54 Dose: 3 ml Documented By: [facility] MAR Nebulizer Assessment Document 02/10/25 20:54 [facility] (Rec: 02/10/25 20:54 [facility] [id number]) Updraft Nebulizer Treatment Method In-Line Enoxaparin Sodium (Enoxaparin 40 Mg/0.4 Ml Syringe) 40 mg SUB-Q DAILY VIN Last Admin: 02/11/25 09:36 Dose: 40 mg Documented By: ELLA Sub Q Injection Site Document 02/11/25 09:36 ELLA (Rec: 02/11/25 09:37 ELLA [id number]) Sub Q Injection Site Sub Q Injection Site Upper Outer Arm, Left Furosemide (Furosemide Inj 40 Mg/4 Ml Vial) 40 mg IV PUSH DAILY VIN Last Admin: 02/11/25 09:32 Dose: 40 mg Documented By: Admin: 02/10/25 22:14 Dose: 40 mg Documented By: AQUILES Guaifenesin (Guaifenesin 12 Hr 600 Mg Tabcr) 600 mg PO Q12HR [facility] Last Admin: 02/11/25 09:38 Dose: 600 mg Documented By: Admin: 02/10/25 23:59 Dose: 600 mg Documented By: MANUELA Ceftriaxone Sodium 1 gm/ (Sodium Chloride) 50 mls @ 100 mls/hr IVPB Q24H [facility] Last Infusion: 02/11/25 18:25 Dose: Infused Documented By: SRG Infusion/Titration Document 02/11/25 18:25 SRG (Rec: 02/11/25 19:23 SRG [id number]) Intake Intake 50 Cumulative Intake ( 50 bag) Cumulative Intake ( 50 Rx) Container Volume 0 Waste Amount 0 Dosing Infusion Rate 0 Cumulative Dose 1 Increase/Decrease Infused Elapsed Time Elapsed Time ( 33m minutes) Admin: 02/11/25 17:52 Dose: 100 mls/hr Documented By: SRG Infusion/Titration Document 02/11/25 17:52 [facility] (Rec: 02/11/25 17:52 SRG [id number]) Intake IV Site Peripheral Access Right Forearm Container Volume 50 Waste Amount 0 Dosing Infusion Rate 100 Increase/Decrease Started Elapsed Time Elapsed Time ( 0m minutes) Azithromycin 500 mg/ Sodium (Chloride) 250 mls @ 250 mls/hr IVPB Q24H [facility] Stop: 02/14/25 20:59 Last Admin: 02/11/25 19:57 Dose: 250 mls/hr Documented By: LLG Infusion/Titration Document 02/11/25 19:57 LLG (Rec: 02/11/25 19:58 LLG [id number]) Intake IV Site Peripheral Access Right Forearm Container Volume 250 Waste Amount 0 Dosing Infusion Rate 250 Increase/Decrease Started Elapsed Time Elapsed Time ( 0m minutes) Methylprednisolone Sodium Succinate (Methylprednisolone Sod Succ 125 Mg Vial) 60 mg IV PUSH Q6H [facility] Last Admin: 02/11/25 15:51 Dose: 60 mg Documented By: Admin: 02/11/25 09:33 Dose: 60 mg Documented By: Admin: 02/11/25 02:56 Dose: 60 mg Documented By: Admin: 02/10/25 22:14 Dose: 60 mg Documented By: AQUILES Administered/Completed Medications Discontinued Medications Albuterol (Albuterol Sulfate Neb 2.5 Mg/3 Ml Inh) 5 mg INHALATION ONCE STA Stop: 02/10/25 15:25 Last Admin: 02/10/25 15:28 Dose: 5 mg Documented By: CLC Albuterol (Albuterol Sulfate Neb 2.5 Mg/3 Ml Inh) 2.5 mg INHALATION ONCE STA Stop: 02/10/25 17:10 Last Admin: 02/10/25 17:25 Dose: 2.5 mg Documented By: SURI Ceftriaxone Sodium 1 gm/ (Sodium Chloride) 50 mls @ 100 mls/hr IVPB ONCE STA Stop: 02/10/25 16:39 Last Infusion: 02/10/25 20:23 Dose: Infused Documented By: Admin: 02/10/25 17:20 Dose: 100 mls/hr Documented By: AQUILES Azithromycin 500 mg/ Sodium (Chloride) 250 mls @ 250 mls/hr IVPB ONCE STA Stop: 02/10/25 17:09 Last Infusion: 02/10/25 21:13 Dose: Infused Documented By: Admin: 02/10/25 19:57 Dose: 250 mls/hr Documented By: LIZETH Methylprednisolone Sodium Succinate (Methylprednisolone Sod Succ 125 Mg Vial) 125 mg IV PUSH ONCE STA Stop: 02/10/25 15:25 Last Admin: 02/10/25 15:29 Dose: 125 mg Documented By: AQUILES Sterile Water (Water For Irrigation, Sterile 500 Ml Bottle) Confirm Administered Dose 500 ml .ROUTE .STK-MED ONE Stop: 02/11/25 17:27 Last Admin: 02/11/25 18:05 Dose: Not Given Documented By: MARIAELENA Non-Admin Reason: Charge Only Notes 02/11/25 19:10 (created 02/11/25 19:32) Nurse Note by Harriett Khan Report given to ELVIN Sterling Initialized on 02/11/25 19:32 - END OF NOTE 02/11/25 16:00 (created 02/11/25 16:03) Nurse Note by Harriett Khan Dinner tray ordered at this time Initialized on 02/11/25 16:03 - END OF NOTE 02/11/25 11:58 Nurse Note by Nichelle Cagle This patient, Marialuisa Darden, was admitted to [facility]. Patient/family oriented to hospital policies and general routines including ID bracelet, bed and alarms, visiting hours, pain management, procedures, bathroom and other care routines, personal items, smoking policy, room service/diet, and visiting hours. Information on how to activate the Rapid Response Team has been discussed. Patient/Family are encouraged to report perceived risks to care and to ask questions if they do not understand what they are told or what they should do. Initialized on 02/11/25 11:58 - END OF NOTE 02/10/25 23:33 Nurse Note by Shoshana Cho. Report received from ELVIN Bhagat. Assumed care of patient at this time. Initialized on 02/10/25 23:33 - END OF NOTE 02/10/25 20:24 Nurse Note by Shagufta Vargas 2020-PATIENT'S BED SATURATED WITH URINE. NO URINE IN CANISTER FROM PREVIOUS PURE WICK INSERTION. COMPLETE LINEN CHANGE AND PARTIAL BED BATH GIVEN. NEW PURE WICK APPLIED AND SUCTION CHECKED FOR APPROPRIATE SETTING. PILLOW GIVEN FOR COMFORT. Initialized on 02/10/25 20:24 - END OF NOTE Interventions/Assessments Cardiac Monitoring Start: 02/10/25 15:15 Freq: Status: Active Protocol: Document 02/11/25 02:00 [facility] (Rec: 02/11/25 02:00 [facility] [id number]) Delinquency Prevention Officer Assessment Delinquency Prevention Officer Yes Applied Pulse Rate (60-100) 74 EKG Rythm Sinus Rhythm IV / Saline Lock, Insert Start: 02/10/25 15:15 Freq: Status: Active Protocol: Document 02/10/25 15:25 [facility] (Rec: 02/10/25 15:25 [facility] [id number]) IV Assessment Peripheral Access Right Forearm IV Catheter Access Initiated IV Insertion Date 02/10/25 IV Insertion Time 15:25 Catheter Gauge 18 IV Insertion 1 Attempts IV Site Assessment WNL IV Care and WNL Maintenance PA: Cardiovascular Assessment Start: 02/10/25 15:15 Freq: Status: Active Protocol: Document 02/11/25 00:51 [facility] (Rec: 02/11/25 00:51 [facility] [id number]) Cardiovascular Assessment Cardiovascular Dyspnea Symptoms Skin Description Normal Color Heart Sounds Normal Jugular Vein None Distention Chest Pain Assessment Chest Pain Intensity 0 Description and Dyspnea Symptoms Jugular Vein None Distention PA: Respiratory Assessment Start: 02/10/25 15:15 Freq: Status: Active Protocol: Document 02/11/25 12:00 [facility] (Rec: 02/11/25 18:40 [facility] [id number]) Respiratory Assessment Symptoms Cough,Shortness of Breath at Rest Effort Normal Pattern Regular Depth Normal Chest Expansion Symmetrical Adult Capillary Normal/Less than 2 Seconds Refill Anterior Bilateral Throughout Phase Inspiratory & Expiratory Lung Sounds Diminished Cough Description Chronic,Productive Cough Frequency Intermittent Sputum Production/ Spontaneous Expectoration Suction Method Sputum Amount Scant Sputum Color White Sputum Consistency Mucoid Oxygen Delivery Oxygen Delivery BiPAP Pulse Oximetry (90- 94 100) Last Vital Signs Temperature 98.4 F 02/11/25 07:13 Pulse Rate 83 02/11/25 20:38 Respiratory Rate 21 H 02/11/25 20:38 Pulse Oximetry 95 02/11/25 20:38 Blood Pressure 150/70 H 02/11/25 19:46 Blood Pressure Mean 90 02/11/25 19:46 Blood Pressure Position Sitting 02/11/25 06:41 Oxygen Delivery Nasal Cannula 02/11/25 19:30 Oxygen Flow Rate 4 02/11/25 19:30 Fraction of Inspired Oxygen 36 02/11/25 19:30 Weight 94.6 kg 02/11/25 11:45 Last Result - Abnormals Only RBC 2.68 M/mm3 (4.2-5.4) L 02/11/25 07:02 Hgb 8.3 g/dL (12.0-15.0) L 02/11/25 07:02 Hct 25.4 % (37.0-47.0) L 02/11/25 07:02 RDW 14.9 % (11.5-14.5) H 02/11/25 07:02 Plt Count 125 k/mm3 (150-375) L 02/11/25 07:02 MPV 11.0 fl (7.4-10.4) H 02/11/25 07:02 Neutrophils % (Manual) 94 % (46-73) H 02/11/25 07:02 Lymphocytes % (Manual) 3 % (18-44) L 02/11/25 07:02 Monocytes % (Manual) 15 % (3-9) H 02/10/25 15:31 Abs Neuts (Manual) 7.46 K/mm3 (1.3-6.7) H 02/11/25 07:02 Abs Lymphs (Manual) 0.23 K/mm3 (1.1-4.5) L 02/11/25 07:02 Abs Monocytes (Manual) 1.05 K/mm3 (0.1-0.90) H 02/10/25 15:31 APTT 36.9 Seconds (22.3-36.8) H 02/10/25 15:31 ABG pO2 75.3 mmHg (80.0-100.0) L 02/10/25 15:32 ABG O2 Content 12.0 %vol (16.0-22.0) L 02/10/25 15:32 Reduced Hemoglobin 5.4 %THb (0-5.0) H 02/10/25 15:32 Total Hemoglobin 9.1 g/dL (12.0-18.0) L 02/10/25 15:32 Sodium 129 mmol/L (137-145) L 02/11/25 07:02 Chloride 96 mmol/L (98-107) L 02/11/25 07:02 Glucose 166 mg/dL (65-110) H 02/11/25 07:02 NT-Pro-B Natriuret Pep 3760 pg/mL (19.9-100) H 02/10/25 15:31 Urine Ketones Trace mg/dL (Negative) H 02/11/25 07:38 Most Recent Suicide Severity Rating Suicide Severity Rating NO RISK INDICATED 02/10/25 15:18
--- NOTE | 2025-02-11 21:17 | ADMGEN ---
This patient, Marialuisa Darden, was admitted to IMU Room 200-01. Patient/family oriented to hospital policies and general routines including ID bracelet, bed and alarms, visiting hours, pain management, procedures, bathroom and other care routines, personal items, smoking policy, room service/diet, and visiting hours. Information on how to activate the Rapid Response Team has been discussed. Patient/Family are encouraged to report perceived risks to care and to ask questions if they do not understand what they are told or what they should do.
[2025-02-12] VITALS (27 sets, daily range): BP systolic 137–154; BP diastolic 64–89; PULSE 67–95; RESP 16–28; TEMP 36.5–37; O2SAT 93–100
[2025-02-12] MEDS: IPRATROPIUM 0.5 MG/ALBUTEROL SULFATE 2.5 MG (BASE) AMPUL.NEB 3 ML INHALATION ×4 (02:22→19:56)
[2025-02-12 08:03] LABS: Hematocrit 27.6 % (37.0-47.0); Hemoglobin 9.1 g/dL (12.0-15.0); Immature Granulocyte Percent A 3.0 % (0-0.5); Immature Platelet Fraction Pct 6.6 % (0.9-11.2); Lymphocytes Absolute Auto 0.51 K/mm3 (0.9-3.2); Mean Corpuscular HGB Conc 33.0 g/dl (32-36); Mean Corpuscular Hemoglobin 31.2 pg (26-34); Mean Corpuscular Volume 94.5 fl (80-100); Nucleated Red Blood Cells Absolute Auto 0.000 K/mm3 (0.0-0.012); Nucleated Red Blood Cells Perc 0.0 % (0.0-0.2); Platelet Count Result 144 k/mm3 (150-375); Red Blood Count 2.92 M/mm3 (4.2-5.4); White Blood Count 7.2 K/mm3 (4.5-10.0)
[2025-02-12 08:21] LABS: Alanine Aminotransferase 23 U/L (6-35); Albumin Level 4.5 g/dL (3.5-5.1); Alkaline Phosphatase 92 U/L (38-126); Anion Gap 6 mmol/L (4-12); Aspartate Amino Transferase 48 U/L (14-36); Bilirubin,Total 1.2 mg/dL (0.2-1.3); Blood Urea Nitrogen 20 mg/dL (7-17); Calcium 10.0 mg/dL (8.4-10.2); Carbon Dioxide 28 mmol/L (22-30); Chloride 97 mmol/L (98-107); Estimated CRCL calculation 52 ml/min; Estimated Glomerular Filt Rate > 60; Glucose 139 mg/dL (65-110); Potassium 4.2 mmol/L (3.4-5.0); Sodium 131 mmol/L (137-145); Total Protein 7.7 g/dL (6.3-8.2)
--- NOTE | 2025-02-12 08:58 | P.PNIM_ITS ---
Assessment and Plan Assessment and Plan (1) Acute and chronic respiratory failure: Qualifiers: Respiratory failure complication: hypoxia Qualified Code(s): J96.21 - Acute and chronic respiratory failure with hypoxia Code(s): J96.20 - Acute and chronic respiratory failure, unspecified whether with hypoxia or hypercapnia Status: Acute Assessment and Plan: Acute on chronic respiratory failure. At baseline requires 2 L nasal cannula at all times. Now requiring 4 L nasal cannula to maintain O2 sat greater than 92%. Subsequently placed on BiPAP for work of breathing. Initial ABG in the ED showed no significant derangements. Workup/clinical picture concerning for CHF exacerbation, pneumonia, and COPD exacerbation. * Lasix 40 mg daily for CHF exacerbation * broad-spectrum antibiotics and supportive care for pneumonia * started on BiPAP in the ED on 02/10, continued inpatient * schedule DuoNebs and prednisone for COPD exacerbation * continue supplemental oxygen to maintain O2 sat greater than 92%, may wean to baseline O2 requirement as tolerated * Off BIPAP, now back on 2L NC which is her baseline * Still some expiratory wheezing on exam (2) Pneumonia: Qualifiers: Laterality: bilateral Lung location: unspecified part of lung Pneumonia type: due to unspecified organism Qualified Code(s): J18.9 - Pneumonia, unspecified organism Code(s): J18.9 - Pneumonia, unspecified organism Status: Acute Assessment and Plan: * CXR concerning for CHF in superimposed probable pneumonia (Bilateral infiltrates). * reporting productive cough. No nausea, vomiting, diarrhea, fever, chills. No leukocytosis. Did not meet SIRS criteria. * started on ceftriaxone and azithromycin 02/10 * supportive care including Mucinex, Tessalon Perles, Tylenol * viral PCR negative on 02/10 * Continue ABX (3) Acute exacerbation of CHF (congestive heart failure): Qualifiers: Heart failure type: diastolic Qualified Code(s): I50.33 - Acute on chronic diastolic (congestive) heart failure Code(s): I50.9 - Heart failure, unspecified Status: Acute Assessment and Plan: * CXR concerning for moderate pulmonary venous congestion consistent with CHF exacerbation. * History of diastolic dysfunction. * Last echo in 2022 which showed hyperdynamic systolic function with an estimated EF greater than 70%, grade 1 diastolic dysfunction, LA mildly enlarged, no pulmonary hypertension, mild AV sclerosis. * Reports new swelling x1 day prior to arrival. BNP elevated upon admission. * Update echo * Lasix 40 mg daily, 1st dose today on 02/10 * monitor daily weights and I&Os * monitor renal function (4) COPD (chronic obstructive pulmonary disease): Qualifiers: COPD type: chronic bronchitis Chronic bronchitis type: simple Qualified Code(s): J41.0 - Simple chronic bronchitis Code(s): J44.9 - Chronic obstructive pulmonary disease, unspecified Status: Acute Assessment and Plan: * Acute exacerbation of COPD, likely related to acute illness and started on broad-spectrum antibiotics for pneumonia. * DuoNeb scheduled * methylprednisolone IV jose (5) Hypertension: Qualifiers: Hypertension type: primary hypertension Qualified Code(s): I10 - Essential (primary) hypertension Code(s): I10 - Essential (primary) hypertension Status: Chronic Assessment and Plan: * chronic, currently 111/70, stable. * continue home medications * monitor (6) Hypothyroidism: Qualifiers: Hypothyroidism type: acquired Qualified Code(s): E03.9 - Hypothyroidism, unspecified Code(s): E03.9 - Hypothyroidism, unspecified Status: Chronic Assessment and Plan: * Stable * TSH 0.713 in October of 2024 * continue Synthroid (7) NBA on CPAP: Code(s): G47.33 - Obstructive sleep apnea (adult) (pediatric); Z99.89 - Dependence on other enabling machines and devices Status: Chronic Assessment and Plan: * continue home CPAP Plan Diet: heart healthy GI Prophylaxis: n/a DVT Prophylaxis: Lovenox SQ IV fluids: none, diuresing Lines/Tubes: pIV Code Status: full code Subjective Date/time seen: 02/12/25 08:58 Interval history: 79 y/o F with PMH of dementia, chronic respiratory failure, diastolic dysfunction, anemia, COPD, hypertension, fibromyalgia among other chronic medical conditions presents here with shortness of breath. 02/12/2025 Patient sitting comfortably in bed at time of examination. Is now off BIPAP, back on nasal cannula 2L, satting @ 91%. Still has non-productive cough and endorses some shortness of breath, but denies any chest pain. Remains afebrile without leukocytosis. Still some expiratory wheezing in all lung keen. Plan to continue IV abx and COPD tx, overall pt is improved since yesterday. Review of Systems Review of Systems: All systems reviewed & are unremarkable except as noted in HPI and below Exam Const: General: comfortable and no acute distress Other: , female elderly, nontoxic appearance HENMT: Face/Nose/Sinus: Normal nares present Mouth: Yes moist mucous membranes Eyes: General: appearance normal, both eyes and all related structures Sclera: sclerae normal Pupils: Equal, round and reactive pupils present EOM: EOMs intact bilaterally Resp: Other: mild tachypnea without accessory muscle use. Tolerating BiPAP well. Expiratory wheezing bilaterally. Faint bibasilar crackles. Cardio: Rate: regular rate Rhythm: regular rhythm Other: S1-S2 present without murmur, rub, ectopy GI: Other: Abdomen soft, nondistended, nontender. Normoactive bowel sounds in all quadrants. Skin: General skin exam: normal color and no rashes or lesions noted Other: Ecchymosis to the left forearm in no particular pattern. Neuro: Cranial nerves: Yes Equal, round and reactive pupils present Speech: normal speech Motor exam (neuro): 5/5 motor strength present throughout Sensory Exam: normal sensation Other: Alert and orientated times 2-3. Extrem: Other: Trace to 1+ pitting edema, symmetric Psych: Mental Status: mental status grossly normal Affect: normal affect Other: fair insight and judgment, pleasant. No current hallucinations. Objective Data Vital Signs Vital Signs: Vital Signs - 24 hr 02/11/25 09:39 02/11/25 11:04 02/11/25 11:06 Temperature Pulse Rate 85 79 Respiratory Rate 19 20 Blood Pressure 152/65 H 146/66 H Pulse Oximetry 93 93 94 Oxygen Delivery BiPAP Oxygen Flow Rate Fraction of Inspired Oxygen 30 02/11/25 11:30 02/11/25 11:30 02/11/25 12:00 Temperature Pulse Rate 83 85 Respiratory Rate 20 18 Blood Pressure 163/81 H Pulse Oximetry 93 93 94 Oxygen Delivery BiPAP BiPAP Oxygen Flow Rate Fraction of Inspired Oxygen 02/11/25 12:15 02/11/25 13:45 02/11/25 14:13 Temperature Pulse Rate 80 90 86 Respiratory Rate 20 20 23 H Blood Pressure 166/69 H 129/97 H Pulse Oximetry 97 95 Oxygen Delivery Oxygen Flow Rate Fraction of Inspired Oxygen 02/11/25 14:20 02/11/25 14:24 02/11/25 14:30 Temperature Pulse Rate 85 88 85 Respiratory Rate 23 H 18 20 Blood Pressure 127/59 L Pulse Oximetry 95 96 Oxygen Delivery BiPAP Oxygen Flow Rate Fraction of Inspired Oxygen 02/11/25 14:55 02/11/25 15:00 02/11/25 15:00 Temperature Pulse Rate 84 84 83 Respiratory Rate 24 H 20 19 Blood Pressure Pulse Oximetry 95 94 95 Oxygen Delivery Nasal Cannula Oxygen Flow Rate 3 Fraction of Inspired Oxygen 32 02/11/25 15:15 02/11/25 15:27 02/11/25 15:39 Temperature Pulse Rate 83 84 84 Respiratory Rate 20 19 17 Blood Pressure 149/69 H Pulse Oximetry 94 94 93 Oxygen Delivery Oxygen Flow Rate Fraction of Inspired Oxygen 02/11/25 15:45 02/11/25 16:00 02/11/25 16:42 Temperature Pulse Rate 85 86 85 Respiratory Rate 18 20 23 H Blood Pressure 151/72 H Pulse Oximetry 95 94 95 Oxygen Delivery Oxygen Flow Rate Fraction of Inspired Oxygen 02/11/25 16:45 02/11/25 16:46 02/11/25 17:00 Temperature Pulse Rate 85 83 84 Respiratory Rate 20 21 H 26 H Blood Pressure 70/58 L Pulse Oximetry 95 95 95 Oxygen Delivery Oxygen Flow Rate Fraction of Inspired Oxygen 02/11/25 17:15 02/11/25 17:24 02/11/25 17:26 Temperature Pulse Rate 84 84 88 Respiratory Rate 20 18 23 H Blood Pressure 155/79 H 155/79 H Pulse Oximetry 95 94 94 Oxygen Delivery Oxygen Flow Rate Fraction of Inspired Oxygen 02/11/25 17:30 02/11/25 17:30 02/11/25 17:31 Temperature Pulse Rate 88 87 87 Respiratory Rate 20 16 20 Blood Pressure 160/80 H 160/80 H Pulse Oximetry 93 93 94 Oxygen Delivery Oxygen Flow Rate Fraction of Inspired Oxygen 02/11/25 17:47 02/11/25 18:15 02/11/25 18:17 Temperature Pulse Rate 88 78 87 Respiratory Rate 19 18 22 H Blood Pressure 144/64 H Pulse Oximetry 100 97 92 Oxygen Delivery Oxygen Flow Rate Fraction of Inspired Oxygen 02/11/25 18:30 02/11/25 19:00 02/11/25 19:28 Temperature Pulse Rate 84 80 84 Respiratory Rate 17 18 20 Blood Pressure 151/78 H Pulse Oximetry 94 99 Oxygen Delivery Oxygen Flow Rate Fraction of Inspired Oxygen 02/11/25 19:30 02/11/25 19:31 02/11/25 19:37 Temperature Pulse Rate 84 80 81 Respiratory Rate 20 19 20 Blood Pressure Pulse Oximetry 94 99 Oxygen Delivery Nasal Cannula Oxygen Flow Rate 4 Fraction of Inspired Oxygen 36 02/11/25 19:45 02/11/25 19:46 02/11/25 20:00 Temperature Pulse Rate 82 82 81 Respiratory Rate 21 H 22 H 23 H Blood Pressure 150/70 H Pulse Oximetry 95 95 95 Oxygen Delivery Oxygen Flow Rate Fraction of Inspired Oxygen 02/11/25 20:15 02/11/25 20:38 02/11/25 21:00 Temperature 98.0 F Pulse Rate 83 83 80 Respiratory Rate 22 H 21 H 20 Blood Pressure 151/67 H Pulse Oximetry 95 95 97 Oxygen Delivery Oxygen Flow Rate Fraction of Inspired Oxygen 02/11/25 21:38 02/11/25 21:59 02/11/25 22:00 Temperature Pulse Rate 85 80 81 Respiratory Rate 20 Blood Pressure Pulse Oximetry 96 97 Oxygen Delivery CPAP CPAP Oxygen Flow Rate 3 Fraction of Inspired Oxygen 02/12/25 00:00 02/12/25 00:00 02/12/25 00:00 Temperature 98.6 F Pulse Rate 78 78 79 Respiratory Rate 20 20 Blood Pressure 137/65 Pulse Oximetry 95 95 Oxygen Delivery CPAP Oxygen Flow Rate Fraction of Inspired Oxygen 36 02/12/25 02:00 02/12/25 02:23 02/12/25 02:27 Temperature Pulse Rate 69 80 81 Respiratory Rate 20 Blood Pressure Pulse Oximetry 96 Oxygen Delivery CPAP Oxygen Flow Rate Fraction of Inspired Oxygen 02/12/25 02:31 02/12/25 04:00 02/12/25 04:00 Temperature Pulse Rate 81 81 75 Respiratory Rate 20 20 Blood Pressure Pulse Oximetry 96 Oxygen Delivery CPAP Oxygen Flow Rate Fraction of Inspired Oxygen 36 02/12/25 04:00 02/12/25 06:00 02/12/25 08:00 Temperature 97.8 F 97.8 F Pulse Rate 88 67 80 Respiratory Rate 20 16 Blood Pressure 149/89 H 148/68 H Pulse Oximetry 99 100 Oxygen Delivery Oxygen Flow Rate Fraction of Inspired Oxygen 02/12/25 08:09 02/12/25 08:09 02/12/25 08:15 Temperature Pulse Rate 80 80 78 Respiratory Rate 20 20 20 Blood Pressure Pulse Oximetry 97 Oxygen Delivery Nasal Cannula Oxygen Flow Rate 3 Fraction of Inspired Oxygen Intake/Output Intake/Output: Intake & Output 02/09/25 02/10/25 02/11/25 02/12/25 23:59 23:59 23:59 23:59 Intake Total 300 300 320 Output Total 4787 800 Balance 924 -1326 -213 Meds/Results Medications: Active Medications Generic Name Dose Route Start Last Admin Trade Name Freq PRN Reason Stop Dose Admin Acetaminophen 650 mg 02/10/25 19:39 Acetaminophen 325 Mg Tablet PO Q6H PRN Mild Pain (1-3) or Fever Albuterol/Ipratropium 3 ml 02/10/25 20:00 02/12/25 08:07 Ipratropium 0.5 Mg/Albuterol Sulfate 2.5 Mg (Base) Ampul.Neb 3 Ml INHALATION 3 ml Q6HRT JOSE Administration Benzonatate 100 mg 02/10/25 19:39 Benzonatate 100 Mg Capsule PO TID PRN Cough Enoxaparin Sodium 40 mg 02/11/25 09:00 02/11/25 09:36 Enoxaparin 40 Mg/0.4 Ml Syringe SUB-Q 40 mg DAILY JOSE Administration Furosemide 40 mg 02/10/25 19:40 02/11/25 09:32 Furosemide Inj 40 Mg/4 Ml Vial IV PUSH 40 mg DAILY JOSE Administration Guaifenesin 600 mg 02/10/25 21:00 02/11/25 21:40 Guaifenesin 12 Hr 600 Mg Tabcr PO 600 mg Q12HR JOSE Administration Ceftriaxone Sodium 1 gm/ 50 mls @ 100 mls/hr 02/11/25 17:00 02/11/25 18:25 Sodium Chloride IVPB Infused Q24H JOSE Infusion Azithromycin 500 mg/ Sodium 250 mls @ 250 mls/hr 02/11/25 20:00 02/11/25 21:03 Chloride IVPB 02/14/25 20:59 Infused Q24H JOSE Infusion Methylprednisolone Sodium Succinate 60 mg 02/10/25 21:00 02/12/25 04:23 Methylprednisolone Sod Succ 125 Mg Vial IV PUSH 60 mg Q6H JOSE Administration Radiology Results: ITS Impressions Chest X-Ray 02/10/25 16:03 Impression: CHF. Superimposed probable pneumonia. The findings appear progressed compared to the previous study. Labs Labs: Laboratory Results - last 24 hr 02/12/25 07:52 WBC 7.2 RBC 2.92 L Hgb 9.1 L Hct 27.6 L MCV 94.5 MCH 31.2 MCHC 33.0 RDW 14.6 H Plt Count 144 L MPV 10.7 H Immature Gran % (Auto) 3.0 H Neut % (Auto) 84.3 H Lymph % (Auto) 7.1 L [place] % (Auto) 5.1 Eos % (Auto) 0.4 Baso % (Auto) 0.1 L Lymph # (Auto) 0.51 L [place] # (Auto) 0.4 Eos # (Auto) 0.0 Baso # (Auto) 0.0 Abs Immat Gran (auto) 0.22 H Absolute Neuts (auto) 6.1 Absolute Nucleated RBC 0.000 Nucleated RBC % 0.0 % Immature Plt Fraction 6.6 Sodium 131 L Potassium 4.2 Chloride 97 L Carbon Dioxide 28 Anion Gap 6 BUN 20 H Creatinine 0.78 Estim Creat Clear Calc 52 Estimated GFR > 60 Glucose 139 H Calcium 10.0 Total Bilirubin 1.2 AST 48 H ALT 23 Alkaline Phosphatase 92 Total Protein 7.7 Albumin 4.5 Quality VTE Prophylaxis VTE prophylaxis: pharmacologic ordered
[2025-02-12] MEDS: guaiFENesin 12 HR 600 MG TABCR PO ×2 (09:46→20:19)
[2025-02-12] MEDS: FUROSEMIDE INJ 40 MG/4 ML VIAL IV PUSH (09:46)
[2025-02-12] MEDS: ENOXAPARIN 40 MG/0.4 ML SYRINGE SUB-Q (09:47)
[2025-02-12] MEDS: GABAPENTIN 300 MG CAPSULE PO ×2 (13:58→20:19)
[2025-02-12] MEDS: cefTRIAXone 1 GM in SODIUM CHLORIDE 0.9% IV 50 ML 100 ML IVPB (16:39)
[2025-02-12] MEDS: DOCUSATE SODIUM 100 MG CAPSULE PO (16:39)
--- NOTE | 2025-02-12 16:46 | PC.NURSE ---
Addendum entered by Shahab Landers RN 02/12/25 16:50: Bipap settings 02/09 rate of 4 per respiratory therapy Original Note: Pt complaining of not being able to breathe out a full breath. O2 sats 87-90. Pt couching continuously dry barking/ hacking with minimal sputum production. Respiratory called, treatment delivered. Bipap placed on patient at 1650
[2025-02-12] MEDS: ALBUTEROL SULFATE NEB 2.5 MG/3 ML INH INHALATION (16:50)
[2025-02-12] MEDS: PANTOPRAZOLE 40 MG TABLET PO (20:19)
[2025-02-12] MEDS: TELMISARTAN 40 MG TABLET PO (20:19)
[2025-02-12] MEDS: DONEPEZIL HCL 5 MG TABLET PO (20:19)
[2025-02-12] MEDS: AZITHROMYCIN IV 500 MG in SODIUM CHLORIDE 0.9% IV 250 ML IVPB (20:20)
[2025-02-13] VITALS (28 sets, daily range): BP systolic 141–156; BP diastolic 59–81; PULSE 60–97; RESP 18–27; TEMP 36.6–36.9; O2SAT 91–99
[2025-02-13] MEDS: IPRATROPIUM 0.5 MG/ALBUTEROL SULFATE 2.5 MG (BASE) AMPUL.NEB 3 ML INHALATION ×4 (01:18→20:46)
[2025-02-13 04:43] LABS: Hematocrit 26.1 % (37.0-47.0); Hemoglobin 8.8 g/dL (12.0-15.0); Immature Platelet Fraction Pct 8.1 % (0.9-11.2); Mean Corpuscular HGB Conc 33.7 g/dl (32-36); Mean Corpuscular Hemoglobin 32.0 pg (26-34); Mean Corpuscular Volume 94.9 fl (80-100); Platelet Count Result 150 k/mm3 (150-375); Red Blood Count 2.75 M/mm3 (4.2-5.4); White Blood Count 9.4 K/mm3 (4.5-10.0)
[2025-02-13 04:56] LABS: Alanine Aminotransferase 28 U/L (6-35); Albumin Level 4.3 g/dL (3.5-5.1); Alkaline Phosphatase 86 U/L (38-126); Anion Gap 6 mmol/L (4-12); Aspartate Amino Transferase 53 U/L (14-36); Bilirubin,Total 1.1 mg/dL (0.2-1.3); Blood Urea Nitrogen 27 mg/dL (7-17); Calcium 9.5 mg/dL (8.4-10.2); Carbon Dioxide 28 mmol/L (22-30); Chloride 91 mmol/L (98-107); Estimated CRCL calculation 44 ml/min; Estimated Glomerular Filt Rate 57; Glucose 147 mg/dL (65-110); Potassium 3.7 mmol/L (3.4-5.0); Sodium 125 mmol/L (137-145); Total Protein 7.3 g/dL (6.3-8.2)
[2025-02-13] MEDS: LEVOTHYROXINE SODIUM 150 MCG TABLET PO (05:17)
[2025-02-13] MEDS: GABAPENTIN 300 MG CAPSULE PO ×3 (05:17→20:19)
[2025-02-13 05:31] LABS: Band Neutrophils Percent 16 % (0-6); Lymphocytes Absolute Manual 0.56 K/mm3 (1.1-4.5); Lymphocytes Percent Manual 6.0 % (18-44); Monocytes Absolute Manual 0.56 K/mm3 (0.1-0.90); Monocytes Percent Manual 6 % (3-9); Neutrophils Absolute Manual 8.27 K/mm3 (1.3-6.7); Neutrophils Percent Manual 72 % (46-73); Total Cells Counted 100
[2025-02-13 05:33] LABS: Anisocytosis 1+; Burr Cells 1+; Ovalocytes 1+; Schistocytes Rare
[2025-02-13] MEDS: FLUTICASONE/UMECLIDIN/VILANTER 200-62.5-25 MCG ELLIPTA 1 PUFF INHALATION (07:09)
--- NOTE | 2025-02-13 08:36 | P.PNIM_ITS ---
Assessment and Plan Assessment and Plan (1) Asthma with exacerbation: Code(s): J45.901 - Unspecified asthma with (acute) exacerbation Status: Acute Assessment and Plan: * Oxygen requirement: 2L NC (at baseline) * Chest XR CHF. Superimposed probable pneumonia. The findings appear progressed compared to the previous study. * ABG * Current treatment: duoneb and steroid q 6 hr * Pulmonology following * Continue Solu-Medrol 60 mg IV q.6 hours, DuoNebs q.6 hours, Singulair 10 mg q.day * Increase guaifenesin from 60 mg p.o. b.i.d. to 1200 mg p.o. b.i.d. * Continue ceftriaxone and azithromycin * Pending respiratory panel, urine for Legionella/pneumococcal antigen and mycoplasma IgM * D-dimer positive: 0.70 * Chest CTA pending for rule out PE (2) Acute and chronic respiratory failure: Qualifiers: Respiratory failure complication: hypoxia Qualified Code(s): J96.21 - Acute and chronic respiratory failure with hypoxia Code(s): J96.20 - Acute and chronic respiratory failure, unspecified whether with hypoxia or hypercapnia Status: Acute Assessment and Plan: Acute on chronic respiratory failure. At baseline requires 2 L nasal cannula at all times. Now requiring 4 L nasal cannula to maintain O2 sat greater than 92%. Subsequently placed on BiPAP for work of breathing. Initial ABG in the ED showed no significant derangements. Workup/clinical picture concerning for CHF exacerbation, pneumonia, and COPD exacerbation. * Lasix 40 mg daily for CHF exacerbation * broad-spectrum antibiotics and supportive care for pneumonia * started on BiPAP in the ED on 02/10, continued inpatient * schedule DuoNebs and prednisone for COPD exacerbation * continue supplemental oxygen to maintain O2 sat greater than 92%, may wean to baseline O2 requirement as tolerated * Off BIPAP, now back on 2L NC which is her baseline * Still some expiratory wheezing on exam * Pulmonology following (3) Pneumonia: Qualifiers: Laterality: bilateral Lung location: unspecified part of lung Pneumonia type: due to unspecified organism Qualified Code(s): J18.9 - Pneumonia, unspecified organism Code(s): J18.9 - Pneumonia, unspecified organism Status: Acute Assessment and Plan: * CXR concerning for CHF in superimposed probable pneumonia (Bilateral infiltrates). * reporting productive cough. No nausea, vomiting, diarrhea, fever, chills. No leukocytosis. Did not meet SIRS criteria. * started on ceftriaxone and azithromycin 02/10 * supportive care including Mucinex, Tessalon Perles, Tylenol * viral PCR negative on 02/10 * Continue ABX (4) Acute exacerbation of CHF (congestive heart failure): Qualifiers: Heart failure type: diastolic Qualified Code(s): I50.33 - Acute on chronic diastolic (congestive) heart failure Code(s): I50.9 - Heart failure, unspecified Status: Acute Assessment and Plan: * CXR concerning for moderate pulmonary venous congestion consistent with CHF exacerbation. * History of diastolic dysfunction. * Last echo in 2022 which showed hyperdynamic systolic function with an estimated EF greater than 70%, grade 1 diastolic dysfunction, LA mildly enlarged, no pulmonary hypertension, mild AV sclerosis. * Reports new swelling x1 day prior to arrival. BNP elevated upon admission. * Update echo * Lasix 40 mg daily, 1st dose today on 02/10 * monitor daily weights and I&Os * monitor renal function (5) Interstitial lung disease: Code(s): J84.9 - Interstitial pulmonary disease, unspecified Status: Acute Assessment and Plan: * For seen on CT scan 10/02/does not 22 * PFTs on not 24 consistent with mild restrictive abnormality with a FEV1 of 1.68 L with significant decrease in FEV 1 with repeat PFTs on 12/08/2021 * Obtain repeat chest CT scan to assess progression of eye LD * Continue Solu-Medrol 60 mg IV q.6 hours * Repeat serologies (6) Hypertension: Qualifiers: Hypertension type: primary hypertension Qualified Code(s): I10 - Essential (primary) hypertension Code(s): I10 - Essential (primary) hypertension Status: Chronic Assessment and Plan: * chronic, currently 111/70, stable. * continue home medications * monitor (7) Hypothyroidism: Qualifiers: Hypothyroidism type: acquired Qualified Code(s): E03.9 - Hypothyroidism, unspecified Code(s): E03.9 - Hypothyroidism, unspecified Status: Chronic Assessment and Plan: * Stable * TSH 0.713 in October of 2024 * continue Synthroid (8) NBA on CPAP: Code(s): G47.33 - Obstructive sleep apnea (adult) (pediatric); Z99.89 - Dependence on other enabling machines and devices Status: Chronic Assessment and Plan: * continue home CPAP Plan Diet: heart healthy GI Prophylaxis: n/a DVT Prophylaxis: Lovenox SQ IV fluids: none, diuresing Lines/Tubes: pIV Code Status: full code Subjective Date/time seen: 02/13/25 08:36 Interval history: 79 y/o F with PMH of dementia, chronic respiratory failure, diastolic dysfunction, anemia, COPD, hypertension, fibromyalgia among other chronic medical conditions presents here with shortness of breath. 02/13/2025 Patient sitting comfortably in bed at time of examination. Remains on 2L NC at this time, still has some shortness of breath at rest despite O2 sat of 97% at rest. Still has fairly consistent cough. Pulmonology consulted regarding complexity of case and continued shortness of breath. Recommend continued on ceftriaxone and azithromycin. Respiratory pathogen panel, urine for legionella/pneumococcal antigen. D-dimer positive, will order chest CTA to r/o PE. Echo also ordered to assess ventricular function. Review of Systems Review of Systems: All systems reviewed & are unremarkable except as noted in HPI and below Exam Const: General: comfortable and no acute distress Other: , female elderly, nontoxic appearance HENMT: Face/Nose/Sinus: Normal nares present Mouth: Yes moist mucous membranes Eyes: General: appearance normal, both eyes and all related structures Sclera: sclerae normal Pupils: Equal, round and reactive pupils present EOM: EOMs intact bilaterally Resp: Other: mild tachypnea without accessory muscle use. Tolerating BiPAP well. Expiratory wheezing bilaterally. Faint bibasilar crackles. Cardio: Rate: regular rate Rhythm: regular rhythm Other: S1-S2 present without murmur, rub, ectopy GI: Other: Abdomen soft, nondistended, nontender. Normoactive bowel sounds in all quadrants. Skin: General skin exam: normal color and no rashes or lesions noted Other: Ecchymosis to the left forearm in no particular pattern. Neuro: Cranial nerves: Yes Equal, round and reactive pupils present Speech: normal speech Motor exam (neuro): 5/5 motor strength present throughout Sensory Exam: normal sensation Other: Alert and orientated times 2-3. Extrem: Other: Trace to 1+ pitting edema, symmetric Psych: Mental Status: mental status grossly normal Affect: normal affect Other: fair insight and judgment, pleasant. No current hallucinations. Objective Data Vital Signs Vital Signs: Vital Signs - 24 hr 02/12/25 10:00 02/12/25 12:00 02/12/25 12:00 Temperature Pulse Rate 76 85 Respiratory Rate Blood Pressure Pulse Oximetry 93 Oxygen Delivery Nasal Cannula Oxygen Flow Rate 3 Fraction of Inspired Oxygen 02/12/25 12:00 02/12/25 13:46 02/12/25 13:46 Temperature 97.9 F Pulse Rate 74 74 74 Respiratory Rate 20 20 20 Blood Pressure 152/65 H Pulse Oximetry 93 95 Oxygen Delivery Nasal Cannula Oxygen Flow Rate 2 Fraction of Inspired Oxygen 02/12/25 14:00 02/12/25 14:00 02/12/25 14:06 Temperature Pulse Rate 72 75 Respiratory Rate 20 Blood Pressure Pulse Oximetry 93 Oxygen Delivery Nasal Cannula Oxygen Flow Rate 2 Fraction of Inspired Oxygen 02/12/25 15:59 02/12/25 16:00 02/12/25 16:00 Temperature 98.2 F Pulse Rate 74 95 Respiratory Rate 18 Blood Pressure 154/69 H Pulse Oximetry 95 97 Oxygen Delivery BiPAP Oxygen Flow Rate Fraction of Inspired Oxygen 02/12/25 16:50 02/12/25 17:11 02/12/25 17:13 Temperature Pulse Rate 73 77 75 Respiratory Rate 20 28 H 20 Blood Pressure Pulse Oximetry 97 Oxygen Delivery BiPAP Oxygen Flow Rate Fraction of Inspired Oxygen 02/12/25 17:39 02/12/25 19:18 02/12/25 19:57 Temperature 97.7 F Pulse Rate 82 82 74 Respiratory Rate 18 20 Blood Pressure 153/64 H Pulse Oximetry 94 Oxygen Delivery Oxygen Flow Rate Fraction of Inspired Oxygen 02/12/25 20:00 02/12/25 20:00 02/12/25 20:00 Temperature Pulse Rate 76 80 Respiratory Rate 20 Blood Pressure Pulse Oximetry 96 96 Oxygen Delivery Nasal Cannula Nasal Cannula Oxygen Flow Rate 2 3 Fraction of Inspired Oxygen 02/12/25 20:06 02/12/25 22:00 02/12/25 22:20 Temperature Pulse Rate 76 70 82 Respiratory Rate 20 27 H Blood Pressure Pulse Oximetry 96 Oxygen Delivery BiPAP Oxygen Flow Rate Fraction of Inspired Oxygen 02/13/25 00:00 02/13/25 00:00 02/13/25 00:23 Temperature 98.4 F Pulse Rate 82 77 77 Respiratory Rate 27 H 22 H Blood Pressure 141/81 H Pulse Oximetry 96 91 Oxygen Delivery BiPAP Oxygen Flow Rate Fraction of Inspired Oxygen 36 02/13/25 01:18 02/13/25 01:20 02/13/25 02:00 Temperature Pulse Rate 77 77 82 Respiratory Rate 27 H 24 H Blood Pressure Pulse Oximetry 96 Oxygen Delivery BiPAP Oxygen Flow Rate Fraction of Inspired Oxygen 02/13/25 04:00 02/13/25 04:00 02/13/25 04:12 Temperature Pulse Rate 76 82 80 Respiratory Rate 24 H 23 H Blood Pressure Pulse Oximetry 98 96 Oxygen Delivery BiPAP BiPAP Oxygen Flow Rate Fraction of Inspired Oxygen 36 02/13/25 04:37 02/13/25 06:00 02/13/25 07:12 Temperature 98.5 F Pulse Rate 68 72 Respiratory Rate 23 H Blood Pressure 151/73 H Pulse Oximetry 96 97 Oxygen Delivery Nasal Cannula Oxygen Flow Rate 2 Fraction of Inspired Oxygen 02/13/25 07:12 02/13/25 07:23 02/13/25 07:56 Temperature 98.1 F Pulse Rate 95 97 91 Respiratory Rate 24 H 24 H 20 Blood Pressure 156/73 H Pulse Oximetry 93 Oxygen Delivery Oxygen Flow Rate Fraction of Inspired Oxygen Intake/Output Intake/Output: Intake & Output 02/10/25 02/11/25 02/12/25 02/13/25 23:59 23:59 23:59 23:59 Intake Total 686 885 5473 240 Output Total 4770 3000 800 Balance 204 -1400 -1340 -560 Meds/Results Medications: Active Medications Generic Name Dose Route Start Last Admin Trade Name Freq PRN Reason Stop Dose Admin Acetaminophen 650 mg 02/10/25 19:39 Acetaminophen 325 Mg Tablet PO Q6H PRN Mild Pain (1-3) or Fever Albuterol 2.5 mg 02/12/25 12:50 02/12/25 16:50 Albuterol Sulfate Neb 2.5 Mg/3 Ml Inh INHALATION 2.5 mg Q6-8H PRN Administration Shortness Of Breath Or Wheezing Albuterol 1 - 2 puff 02/12/25 12:50 Albuterol Sulfate (*Sp) Aerosol 1 Puff INHALATION Q4-6H PRN Shortness Of Breath Or Wheezing Albuterol/Ipratropium 3 ml 02/10/25 20:00 02/13/25 07:09 Ipratropium 0.5 Mg/Albuterol Sulfate 2.5 Mg (Base) Ampul.Neb 3 Ml INHALATION 3 ml Q6HRT [facility]IN Administration Amlodipine Besylate 10 mg 02/13/25 09:00 Amlodipine Besylate 10 Mg Tablet PO DAILY [facility] Aspirin 81 mg 02/13/25 09:00 Aspirin 81 Mg Enteric Tablet PO QAM [facility] Benzonatate 100 mg 02/10/25 19:39 Benzonatate 100 Mg Capsule PO TID PRN Cough Diclofenac Sodium 1 applic 02/12/25 12:50 Diclofenac Sodium 1% 100 Gm Gel (*Bkc) TOPICAL QID PRN Pain Docusate Sodium 100 mg 02/12/25 17:00 02/12/25 16:39 Docusate Sodium 100 Mg Capsule PO 100 mg BID [facility] Administration Donepezil HCl 5 mg 02/12/25 21:00 02/12/25 20:19 Donepezil Hcl 5 Mg Tablet PO 5 mg QHS [facility] Administration Enoxaparin Sodium 40 mg 02/11/25 09:00 12 09:47 Enoxaparin 40 Mg/0.4 Ml Syringe SUB-Q 40 mg DAILY [facility] Administration Fish Oil 1 gm 02/13/25 09:00 [place] 3 Polyunsat Fatty Acids 1 Gm Cap PO QAM [facility] Fluoxetine HCl 20 mg 02/12/25 13:00 02/12/25 16:39 Fluoxetine Hcl 20 Mg Capsule PO 20 mg TID [facility] Administration Fluticasone/Umeclidinium/Vilanterol 1 puff 02/13/25 09:00 02/13/25 07:09 Fluticasone/Umeclidin/Vilanter 200-62.5-25 Mcg Ellipta INHALATION 1 puff DAILY [facility] Administration Folic Acid 1 mg 02/13/25 09:00 Folic Acid 1 Mg Tablet PO DAILY [facility] Furosemide 40 mg 02/10/25 19:40 02/12/25 09:46 Furosemide Inj 40 Mg/4 Ml Vial IV PUSH 40 mg DAILY [facility] Administration Furosemide 20 mg 02/12/25 12:50 Furosemide 20 Mg Tablet PO QPM PRN weight gain Gabapentin 300 mg 02/12/25 14:00 02/13/25 05:17 Gabapentin 300 Mg Capsule PO 300 mg Q8HR [facility] Administration Guaifenesin 600 mg 02/10/25 21:00 02/12/25 20:19 Guaifenesin 12 Hr 600 Mg Tabcr PO 600 mg Q12HR [facility] Administration Ceftriaxone Sodium 1 gm/ 50 mls @ 100 mls/hr 02/11/25 17:00 02/12/25 16:39 Sodium Chloride IVPB 100 mls/hr Q24H [facility] Administration Azithromycin 500 mg/ Sodium 250 mls @ 250 mls/hr 02/11/25 20:00 02/12/25 20:20 Chloride IVPB 02/14/25 20:59 250 mls/hr Q24H [facility] Administration Levothyroxine Sodium 150 mcg 02/13/25 06:30 02/13/25 05:17 Levothyroxine Sodium 150 Mcg Tablet PO 150 mcg DAILY@0630 [facility] Administration Lidocaine 1 patch 02/13/25 09:00 Lidocaine 5% Patch TOPICAL DAILY [facility] Loratadine 10 mg 02/12/25 12:50 Loratadine 10 Mg Tablet PO DAILY PRN allergy symptoms Methylprednisolone Sodium Succinate 60 mg 02/10/25 21:00 02/13/25 03:49 Methylprednisolone Sod Succ 125 Mg Vial IV PUSH 60 mg Q6H [facility]IN Administration Miscellaneous Information 1 each 02/12/25 00:01 02/13/25 03:47 Albuterol Updraft And Inhaler Have Duplicate Prn Indications Please Clarify XX 03/14/25 00:00 Not Given [facility] Miscellaneous Information 1 each 02/12/25 00:01 02/13/25 03:47 Nonformulary Drug (Vibegron [Gemtesa] 75 Mg Tablet)Can Patient Use From Home? XX 03/14/25 00:00 Not Given [facility] Miscellaneous Information 1 each 02/12/25 00:01 02/13/25 03:47 Nonformulary Drug (Naloxone 4 Mg/Actuation [place],Non-Aerosol)Non Formulary. Hold While Ho XX 03/14/25 00:00 Not Given [facility] Miscellaneous Information 1 each 02/12/25 13:15 Central Supply Item XX 02/13/25 13:14 PRN PRN Informational Montelukast Sodium 10 mg 02/13/25 09:00 Montelukast Sodium 10 Mg Tablet PO DAILY [facility] Nebivolol 10 mg 02/13/25 09:00 Nebivolol Hcl 5 Mg Tablet PO DAILY [facility] Non-Formulary Medication 4 mg 02/12/25 12:50 Naloxone XX 03/14/25 12:49 Q2H PRN opioid overdose Non-Formulary Medication 75 mg 02/13/25 09:00 Vibegron [Gemtesa] PO 03/15/25 08:59 DAILY [facility] Pantoprazole Sodium 40 mg 02/12/25 21:00 02/12/25 20:19 Pantoprazole 40 Mg Tablet PO 40 mg Q12HR [facility] Administration Pravastatin Sodium 40 mg 02/13/25 09:00 Pravastatin Sodium 20 Mg Tablet PO DAILY [facility] Spironolactone 25 mg 02/13/25 09:00 Spironolactone 25 Mg Tablet PO DAILY [facility] Telmisartan 40 mg 02/12/25 21:00 02/12/25 20:19 Telmisartan 40 Mg Tablet PO 40 mg Q12HR [facility] Administration Vitamin D 50 mcg 02/13/25 09:00 Cholecalciferol (Vitamin D3) 125 Mcg (5,000 Units) Tablet PO DAILY [facility] Radiology Results: ITS Impressions Chest X-Ray 02/10/25 16:03 Impression: CHF. Superimposed probable pneumonia. The findings appear progressed compared to the previous study. Labs Labs: Laboratory Results - last 24 hr 02/13/25 03:29 WBC 9.4 RBC 2.75 L Hgb 8.8 L Hct 26.1 L MCV 94.9 MCH 32.0 MCHC 33.7 RDW 14.5 Plt Count 150 MPV 11.2 H Immature Gran % (Auto) Not Reportable Neut % (Auto) Not Reportable Lymph % (Auto) Not Reportable [place] % (Auto) Not Reportable Eos % (Auto) Not Reportable Baso % (Auto) Not Reportable Lymph # (Auto) Not Reportable [place] # (Auto) Not Reportable Eos # (Auto) Not Reportable Baso # (Auto) Not Reportable Abs Immat Gran (auto) Not Reportable Absolute Neuts (auto) Not Reportable Absolute Nucleated RBC Not Reportable Total Counted 100 Neutrophils % (Manual) 72 Band Neutrophils % 16 H Lymphocytes % (Manual) 6.0 L Monocytes % (Manual) 6 Nucleated RBC % Not Reportable Abs Neuts (Manual) 8.27 H Abs Lymphs (Manual) 0.56 L Abs Monocytes (Manual) 0.56 Platelet Estimate Adequate % Immature Plt Fraction 8.1 Anisocytosis 1+ Ovalocytes 1+ Monument Cells 1+ Schistocytes Rare Sodium 125 L Potassium 3.7 Chloride 91 L Carbon Dioxide 28 Anion Gap 6 BUN 27 H Creatinine 0.94 Estim Creat Clear Calc 44 Estimated GFR 57 L Glucose 147 H Calcium 9.5 Total Bilirubin 1.1 AST 53 H ALT 28 Alkaline Phosphatase 86 Total Protein 7.3 Albumin 4.3 Quality VTE Prophylaxis VTE prophylaxis: pharmacologic ordered
[2025-02-13] MEDS: ENOXAPARIN 40 MG/0.4 ML SYRINGE SUB-Q (08:43)
[2025-02-13] MEDS: OMEGA 3 POLYUNSAT FATTY ACIDS 1 GM CAP PO (08:43)
[2025-02-13] MEDS: LIDOCAINE 5% PATCH 1 PATCH TOPICAL (08:43)
[2025-02-13] MEDS: FUROSEMIDE INJ 40 MG/4 ML VIAL IV PUSH (08:43)
[2025-02-13] MEDS: SPIRONOLACTONE 25 MG TABLET PO (08:43)
[2025-02-13] MEDS: ASPIRIN 81 MG ENTERIC TABLET PO (08:44)
[2025-02-13] MEDS: CHOLECALCIFEROL (VITAMIN D3) 125 MCG (5,000 UNITS) TABLET 50 MCG PO (08:44)
[2025-02-13] MEDS: PRAVASTATIN SODIUM 20 MG TABLET 40 MG PO (08:44)
[2025-02-13] MEDS: PANTOPRAZOLE 40 MG TABLET PO ×2 (08:44→20:19)
[2025-02-13] MEDS: FOLIC ACID 1 MG TABLET PO (08:45)
[2025-02-13] MEDS: TELMISARTAN 40 MG TABLET PO ×2 (08:45→20:19)
[2025-02-13] MEDS: MONTELUKAST SODIUM 10 MG TABLET PO (08:45)
[2025-02-13] MEDS: DOCUSATE SODIUM 100 MG CAPSULE PO ×2 (08:45→17:54)
[2025-02-13] MEDS: guaiFENesin 12 HR 600 MG TABCR PO (08:45)
[2025-02-13] MEDS: NEBIVOLOL HCL 5 MG TABLET 10 MG PO (08:50)
--- NOTE | 2025-02-13 12:17 | P.CONPL_ITS ---
Assessment and Plan Assessment and plan (1) Asthma with exacerbation: Code(s): J45.901 - Unspecified asthma with (acute) exacerbation Status: Acute Assessment and Plan: Patient carries a long history of asthma with no evidence of fixed obstruction on her PFTs. She presents now with worsening shortness of breath, cough, phlegm production and wheezing in the emergency department. 02/13/25: Plan: Continue treatment for asthma exacerbation with Solu-Medrol 60 mg IV q.6, continue DuoNebs q.6 hours. Continue Singulair 10 mg q.day. I will discontinue trilogy while she is on DuoNebs q.6 hours and systemic steroids. For difficulty expectorating, I will increase her guaifenesin from 600 p.o. b.i.d. to 1200 mg p.o. b.i.d.. I will add a cord at flutter valve. patient is on ceftriaxone and azithromycin. I will send a respiratory pathogen panel, urine for Legionella, urine for pneumococcal antigen and mycoplasma IgM. Regarding other etiologies for her respiratory symptoms I will check a D-dimer and if positive will order CT angiogram of the chest. If the D-dimer is negative will order CT scan without contrast. I will check an echocardiogram to assess LV function, RV function, valves and PASP. Patient has been on 40 of Lasix IV q.day with a good diuresis. I will check a BNP. Discussed with Dr. Lara, will follow with you. (2) Interstitial lung disease: Code(s): J84.9 - Interstitial pulmonary disease, unspecified Status: Acute Assessment and Plan: Patient with chronic interstitial lung disease which was first seen on CT scan of the chest 10/02/[address] pattern indeterminant for UIP and given a clinical diagnosis of fibrotic NSIP. most recent PFTs on 03/18/2023 with a mild restrictive abnormality with an FEV1 of 1.68 L, total lung capacity 3.06 L, 59% and moderately decreased DLCO that remained mildly decreased when corrected for alveolar volume. Compared to PFTs on 12/08/2021 there has been a significant decrease in the FEV1, total lung capacity with no significant change in the DLCO. Chronic hypoxemic respiratory failure requiring 2 L oxygen at rest, with activity and bleed in with her CPAP of 13 for her NBA. few years. Serologies: 11/18/2021 anti CCP peptide less than 16. Anca screen negative. Demetra 1 antibody negative, SSA antibody negative, SSB antibody negative, [employer] antibody negative, Scl 70 scleroderma antibody negative. 05/13/2022: Rheumatoid factor less than 14. ABRAM positive 1-80, homogeneous nuclear. In pulmonary clinic on 08/11/2023: * Stable, clinically and by recent HRCT 02/15/24. * We planned on repeating PFTs but patient had to reschedule. We've agreed to hold off on PFTs for now since her symptoms are stable. Discussed the purpose of getting PFTs would be to determine if ILD has progressed and if so, offer a referral to [facility] ILD clinic which she's not too interested in, so we'll hold off on testing for now unless her symptoms change. Currently the patient tells me she has no change in her activity level which is severely limited at ambulation room to room because of dyspnea on exertion and back pain. Her oxygenation has been stable up until 3 days ago at 2 L nasal cannula. Plan: Obtain a CT scan of the chest to assess for progression of her interstitial lung disease. Currently she is being treated with IV steroids for asthma exacerbation and I will continue Solu-Medrol 60 mg IV q.6 hours. I will repeat serologies. (3) NBA on CPAP: Code(s): G47.33 - Obstructive sleep apnea (adult) (pediatric); Z99.89 - Dependence on other enabling machines and devices Status: Chronic Assessment and Plan: NBA: * She is on CPAP 13 EPR 2 with 2L/min bleed in. This is a ResMed AirSense 11 from [employer]. * Download 05/11/24 - 08/08/24 shows CPAP used nightly for avg usage 8h3m per night. Overall AHI is 7.8. (This is an improvement from AHI 13.5 on CPAP 8cm last visit). * Continue CPAP with all episodes of sleep. Patient benefits from CPAP use. Follow up in about 6 months, or sooner as needed. Patient encouraged to contact the office with any questions or concerns in the interim. On the night of 02/12/2025 Patient required BiPAP rate of 4 pressures 02/09 inspiratory time 1.0 and a rise of 3. She said that this did help her work of breathing. 02/13/2025: patient is on CPAP 13 with 2 L bleed in. Plan: I will attempt to 10 a download from [email or web address] I will place the patient on CPAP 13 with 2 L bleed in and perform an overnight oximetry. If she has increased work of breathing and cannot tolerate her CPAP will continue BiPAP with settings as above. History of Present Illness History of Present Illness Consult date: 02/13/25 Chief complaint: COPD/Pneumonia/Hypoxia Narrative: 12/16/2024: This is a new pulmonary consult for shortness of breath, asthma 79-year-old with a history of asthma, interstitial lung disease felt to be fibrotic NSIP, chronic hypoxic respiratory failure requiring 2 L at rest, with activity and with sleep, NBA on CPAP 13 and 2 L bleed in, chronic pain. Patient is followed in the Pulmonary Clinic in last seen on 08/10/2024: Marialuisa is a pleasant 78yo F here for follow up regarding chronic hypoxemic respiratory failure related interstitial lung disease, history of asthma, history of sleep apnea on CPAP. She is here today with her , Khang, who helps greatly with her care. ? Asthma/ILD: Today she tells me overall her breathing is stable compared to her last visit aside from recent air quality issues from fires and allergens. Occasional productive cough of pale sputum, sometimes thick and cloudy. No hemoptysis She is compliant with Trelegy 200 1 puff once daily; albuterol PRN by HFA and nebulizer. Lately she is using albuterol nebulizer around 2-3x per day lately with poor air quality. O2: She is using 2L/min pretty much at all times. Sometimes using 3L/min with exertion while working with PT. Ambulates with a walker at home (in a power scooter today for long distances). States O2 saturations have been stable at home. NBA: She got a new CPAP machine Mar 2022. She's worn CPAP for several years. She is using 2L/min O2 bleed into CPAP as recommended by the last sleep study results. CPAP is working fine and she reports she's sleeping well. Occasionally dozes off during the day. Using half face mask - FFM was causing irritation on bridge of nose. AHI trending down after we raised CPAP pressure and she started sleeping with HOB m ore elevated. Had a pain pump placed and having good relief with this. Plan: ILD: * Patient with chronic interstitial lung disease which on chest CT has a fibrotic NSIP pattern. No previous chest CTs or pulmonary function data are available to assess progression of fibrosis over the years. Clinically the patient's shortness of breath has not progressed over the last few years. * Stable, clinically and by recent HRCT 02/15/24. * We planned on repeating PFTs but patient had to reschedule. We've agreed to hold off on PFTs for now since her symptoms are stable. Discussed the purpose of getting PFTs would be to determine if ILD has progressed and if so, offer a referral to [facility] ILD clinic which she's not too interested in, so we'll hold off on testing for now unless her symptoms change. NBA: * She is on CPAP 13 EPR 2 with 2L/min bleed in. This is a ResMed AirSense 11 from [employer]. * Download 05/11/24 - 08/08/24 shows CPAP used nightly for avg usage 8h3m per night. Overall AHI is 7.8. (This is an improvement from AHI 13.5 on CPAP 8cm last visit). * Continue CPAP with all episodes of sleep. Patient benefits from CPAP use. Follow up in about 6 months, or sooner as needed. Patient encouraged to contact the office with any questions or concerns in the interim. Hypoxia: * Currently using 2L/min supplemental O2 with ambulation, at rest, and bleed in to CPAP. at baseline patient patient and tell me she can walk 35 ft with a walker. She uses 2 L oxygen at rest with activity and bleed in at night with saturations 98% at rest. Her activity level has not changed over the last 6 months. Patient was in her usual state of health on 02/08 and then had a sudden onset of shortness of breath and wheezing which is her asthma attack and she was given a nebulizer treatment and she went back to normal. She slept normally that night and on 02/09 her shortness of breath worsened, she had wheezing, on 2 L nasal cannula her oxygen saturations were 82-84% and this was increased to 4 L. 02/10/2025 symptoms worsened and patient presented to the emergency room. Saturations were in the high 80s on 4 L nasal cannula. Her heart rate was 63. On 4 L nasal cannula her saturations were 95% with a respiratory rate of 30. Her white blood cell count was 7.0 with 2% eosinophils. ABG on 4 L nasal cannula 7.40/38/75. Her BNP was 3760, creatinine was 0.79, her COVID influenza and RSV RT PC were negative. Chest x-ray showed bibasilar interstitial infiltrates and left upper lobe hazy Infiltrate both of which had worsened since 10/17/2024. Patient was treated for asthma exacerbation, pneumonia and fluid overload with Solu-Medrol, Lasix, ceftriaxone and azithromycin and bronchodilators. Patient had increased work of breathing was started on BiPAP. Patient continued to have wheezes on 02/11 and 02 12 with minimal improvement. On the night of 02/12/2025 Patient required BiPAP rate of 4 pressures 02/09 inspiratory time 1.0 and a rise of 3. She said that this did help her work of breathing. 02/13/2025: Patient tells me that she is breathing a little bit better. She cannot quantify this. She says that her cough and phlegm are the same. She describes having difficulty breathing out during the 1st half of my interview and difficulty breathing in during the last part of the interview. Her white blood cell count is 9.4, her creatinine is 0.94. Yesterday she diuresed 1.4 L and cumulative she has diuresed 6.9 L since admission. DATA: DATE Pre FVC (% pred) Pre FEV1 (% pred) Post FVC Post FEV1 TLC (% pred) FRC (% pred) RV (% pred) DLCO unadj (% pred) DLCO/VA (% pred) 03/18/23 2.11 (79) 1.68 (83) 2.13 1.73 3.06 (59) 0.88 (29) 0.73 (30) 9.30 (47) 2.68 (65) 09/20/22 2.13 (80) 1.70 (84) 2.14 1.69 3.85 (74) 1.73 (58) 1.55 (64) 9.5 (48) 2.72 (66) 12/08/21 2.78 (103) 2.19 (107) 2.83 2.31 5.12 (98) 3.00 (100) 2.17 (90) 10.5 (53) 2.96 (72) 02/15/24: CT Scan of the Chest without Contrast: Clinical Indication: Interstitial lung disease Technique: Contiguous sections were acquired throughout the chest without intravenous contrast. Dose reduction technique was used on this scan by utilizing automated exposure control and iterative reconstruction technique. The dose-length product (DLP) was 331.74 mGy-cm. COMPARISON: 03/18/2023 Findings: Mildly prominent mediastinal lymph nodes are stable from prior exam. No aortic aneurysm. Coronary artery calcification present. There is no evidence of pleural or pericardial effusion. Extensive interstitial thickening the lungs is similar to prior exam, with some increased background groundglass component throughout the lungs. Images through the upper abdomen reveal no abnormalities. There is extensive degenerative spondylosis in the spine. Impression: Stable extensive interstitial disease in the lungs. Mildly increased background groundglass opacity, which could reflect progressing interstitial disease versus other superimposed pathology such as bronchiolitis, asthma, or mild pulmonary edema, versus suboptimal inspiration. * 09/20/22 - Home O2 Eval - Patient requires 2L/min O2 with ambulation and none at rest. 09/20/2022: This is a pulmonary function test with pre and post-bronchodilator spirometry, plethysmography and diffusing capacity. The test was performed and results interpreted in accordance with the 2019 and 2005 ATS/ERS Task Force guidelines respectively using the Global Lung Function Initiative-2012 reference equations. Patient demonstrated good effort and cooperation. Reproducibility criteria were met. The quality of the pre bronchodilator spirometry maneuver was Grade A and post bronchodilator spirometry maneuver was Grade A. Findings: Spirometry: The contour the expiratory flow tracing is notched in all pre and post bronchodilator efforts. The contour the inspiratory flow tracing is normal. The pre bronchodilator FVC is 2.13 L, 80% predicted. The pre bronchodilator FEV1 is 1.70 L, 84% predicted. The pre bronchodilator FEV1: FVC ratio is 80%. The post bronchodilator FVC is 2.14 L, representing no change. The post bronchodilator FEV1 is 1.69 L, representing a 1% decrease. The post bronchodilator FEV1: FVC ratio 79%. Plethysmography: The total lung capacity is 3.85 L, 74% predicted. The functional residual capacity is 1.73 L, 58% predicted. The residual volume is 1.55 L, 64% predicted. Diffusing capacity: The diffusing capacity unadjusted for hemoglobin and carboxyhemoglobin is 9.5, 48% predicted. The diffusing capacity adjusted for alveolar volume is 2.72, 66% predicted. Impression: The contour of the expiratory flow tracing demonstrates a reproducible notched pattern. The notched pattern has been described with coughing or tracheobronchomalacia. The contour the inspiratory flow tracing is normal. Otherwise, the spirometry is normal without evidence of an obstructive abnormality. There is a mild restrictive ventilatory abnormality with a normal FEV1. There is no significant improvement after inhaling a single dose of albuterol. The diffusing capacity unadjusted for hemoglobin and carboxyhemoglobin is moderately decreased and remains mildly decreased when adjusted for alveolar volume. There are no prior studies for comparison 09/20/2022: EXAMINATION: CT chest high resolution wo co DATE: 10/02/2021 12:18 INDICATION: Interstitial lung disease TECHNIQUE: Computed tomography (CT) of the chest was performed without intravenous contrast. The dose-length product was 517.08 mGy-cm. Automated exposure control and iterative reconstruction technique were employed. COMPARISON: Chest x-ray dated 08/18/2021 FINDINGS: There is mild mediastinal lymphadenopathy. AP window lymph node measuring 1 cm short axis. There is mild atherosclerosis of the aorta and coronary arteries. Borderline heart size. No significant pleural or pericardial effusion. Small hiatal hernia. Status post cholecystectomy with pneumobilia. There is a combination of peripheral interstitial lung disease with interlobular septal thickening and groundglass opacities. There is mild lower lobe bronchiectasis bilaterally. No pneumothorax. No endobronchial lesions. Mild emphysema. There is severe thoracic spondylosis with S-shaped scoliosis. No acute osseous abnormality. There are a few small nodules in both lungs measuring 2 mm or less, likely benign. IMPRESSION: 1. Coarse interstitial lung disease, likely chronic, in a pattern consistent with usual interstitial pneumonia (UIP). 2: Mild emphysema. 3: Mild mediastinal lymphadenopathy, likely reactive. 07/13/22: Echo Summary 1. Complete two-dimensional, color flow and Doppler transthoracic echocardiogram is performed. 2. Left ventricular chamber dimension is normal. 3. Left ventricular systolic function is hyperdynamic, estimated at >70%. 4. The left ventricular diastolic function is grade I diastolic dysfunction. 5. E/e' 9 is minimally elevated. 6. Left atrial chamber dimension is moderately enlarged. 7. There is mild aortic valve sclerosis. 8. No pulmonary hypertension, estimated pulmonary arterial systolic pressure is 24 mmHg. Right Ventricle Right ventricular systolic function is normal and with normal TAPSE 3.2 cm. Right ventricular chamber dimension is normal. Left Atria Left atrial chamber dimension is moderately enlarged. Right Atria Right atrial chamber dimension is normal. * 02/15/22 - Split PSG - Mild sleep apnea with AHI 8.1 and desaturation to 78%. CPAP 8cmH2O EPR 1 and 2L/min supplemental O2 was recommended. * 12/08/21 - PFT - Spirometry is normal without evidence of obstructive abnormality. * 12/08/21 - 6mw on home requirement 2L/min - The patient's resting 2 L nasal canula oxygen saturation measured by pulse oximetry was 98% and heart rate was 66 bpm. Patient ambulated for 61 meters and oxygen saturation remained 93 to 98%. Heart rate at the end of the study was 85 bpm. Of note, during the recovery phase the patient desaturated to a abdelrahman of 85% at 6 minutes and 32 seconds. Patient saturations increased and were 91% at 7 minutes and 8 seconds. * 12/08/21 - Echo - LV systolic function normal, EF 55-60%. Grade I diastolic dysfunction. Moderate LA enlargement. Trace mitral valve regurgitation. * 10/02/21 - EXAMINATION: CT chest high resolution wo co DATE: 10/02/2021 12:18 INDICATION: Interstitial lung disease TECHNIQUE: Computed tomography (CT) of the chest was performed without intravenous contrast. The dose-length product was 517.08 mGy-cm. Automated exposure control and iterative reconstruction technique were employed. COMPARISON: Chest x-ray dated 08/18/2021 FINDINGS: There is mild mediastinal lymphadenopathy. AP window lymph node measuring 1 cm short axis. There is mild atherosclerosis of the aorta and coronary arteries. Borderline heart size. No significant pleural or pericardial effusion. Small hiatal hernia. Status post cholecystectomy with pneumobilia. There is a combination of peripheral interstitial lung disease with interlobular septal thickening and groundglass opacities. There is mild lower lobe bronchiectasis bilaterally. No pneumothorax. No endobronchial lesions. Mild emphysema. There is severe thoracic spondylosis with S-shaped scoliosis. No acute osseous abnormality. There are a few small nodules in both lungs measuring 2 mm or less, likely benign. IMPRESSION: 1. Coarse interstitial lung disease, likely chronic, in a pattern consistent with usual interstitial pneumonia (UIP). 2: Mild emphysema. 3: Mild mediastinal lymphadenopathy, likely reactive. Review of Systems 2 Constitutional: Constitutional: Reports no additional constitutional complaints Eyes: Eyes: Reports no additional eye complaints ENT: Reports system reviewed and no additional complaints, except as documented Cardiovascular: Cardiovascular: Reports no additional cardiovascular complaints Respiratory: Respiratory: Reports no additional respiratory complaints Gastrointestinal: Gastrointestinal: Reports no additional gastrointestinal complaints Musculoskeletal: Musculoskeletal: Reports no additional musculoskeletal complaints Neurologic: Reports system reviewed and no additional complaints, except as documented Psychiatric: Psychiatric: Reports no additional psychiatric complaints Endocrine: Endocrine: Reports no additional endocrine complaints Hematologic/Lymphatic: Hematologic/Lymphatic: Reports no additional hematologic/lymphatic complaints Allergic/Immunologic: Allergic/Immunologic: Reports no additional allergic/immunologic complaints [facility] Past Medical History Medical History (Updated 02/13/25 @ 14:06 by Tad Bland MD) Femur fracture, right Surgical screws Fracture, foot Right Metatarsal Anemia Undifferentiated connective tissue disease Depression with anxiety NBA on CPAP Dementia History of ARDS Diastolic dysfunction History of nuclear stress test History of abnormal electrocardiogram Genevieve's thyroiditis Rosacea w/ ocular involvement Depression History of rectocele History of migraine headaches Spondylosis of cervical spine Arthralgia H/O antinuclear antibodies intermittent +ABRAM to 1:320 Vascular disorder seronegative collagen disorder History of squamous cell carcinoma History of staph infection Chronic left shoulder pain arthritis; possibly inflammatory Fracture, rib Aftercare following finger joint replacement surgery Thyroiditis Scoliosis History of left heart catheterization Tubal ligation evaluation Enlarged ureter Supplemental oxygen dependent Hypertension Fibromyalgia CHF (congestive heart failure) Surgical History Surgical History History of cataract extraction with lens replacement History of arthroplasty of knee Left History of removal of pigmented skin lesion Nose 2021 History of hysterectomy Total History of ERCP History of fusion of lumbar spine L2-L5 lumbar fusion Titanium History of laminectomy History of total knee replacement History of cholecystectomy 2002 History of tubal ligation History of D&C History of hip surgery right Total knee replacement status Previous back surgery S/P peroneal tendon repair History of surgical removal of ganglion cyst 1960 H/O hernia repair 1947 Family History Family History Unknown No problems noted. Mother Esophageal cancer Other Alcohol abuse Cancer Hypertension Social History Social History Social History: She lives with her and has 3 biologic children. She also has 1 adopted child. 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 She is a former smoker. Code status full code Smoking packs per day: 1 Smoking cigarettes per day: 20.0 Years smoked: 10 Smoking pack-years: 10.00 Smoking status: Former smoker Tobacco type: cigarettes Second hand tobacco smoke exposure: No Smoking end date: 11/23/81 Additional smoking assessment comments: quit 1982 Alcohol intake: current Drinks per week: 1 Alcohol use details: 0-1 per week Substance use: never Substance use type: does not use Other substance usage details: social occassions Lack of Transportation: No Lack of Food: Never True Current Housing: I Have Housing Concerned About Future Housing: No Difficulty Paying Gas/Electric Bills: No Difficulty Paying for Meds: No Currently Unemployed: No Education: Associate Degree Difficulty w/ Childcare or Family Care: No Living arrangements: with family Additional living arrangements comments: [facility]. Occupation/Education: retired Gender identity (if verbalized by the patient): Female Spiritual care concerns: No Agree to blood products: Yes Meds Home Medications and Allergies Home Medications ?Medication ?Instructions ?Recorded ?Confirmed ?Type docusate sodium 100 mg capsule 100 mg PO BID 11/18/21 02/11/25 History diclofenac sodium 1 % topical gel 4 g topical QID PRN Pain 05/13/22 02/11/25 History (Arthritis Pain (diclofenac)) telmisartan 40 mg tablet 40 mg PO BID 05/13/22 History spironolactone 25 mg tablet 25 mg PO DAILY 06/15/22 History albuterol sulfate 2.5 mg/3 mL 2.5 mg inhalation Q6-8H PRN 12/28/22 02/11/25 History (0.083 %) solution for nebulization shortness of breat h or wheezing naloxone 4 mg/actuation nasal spray 4 mg intranasal Q2 -3M PRN opioid 03/22/23 02/11/25 Rx overdose #2 ea fluticasone fur. 200 mcg-umeclid 1 inh inhalation STERLING Y #180 ea 12/27/23 02/11/25 Rx 62.5 mcg-vilant 25 mcg inhalat.powder (Trelegy Ellipta) albuterol sulfate 90 mcg/actuation 1 - 2 puff inhalati on Q4-6H PRN 02/21/24 02/11/25 Rx aerosol inhaler shortness of breath or wheez ing #25.5 grams aspirin 81 mg capsule 81 mg PO DAILY 03/08/2410/29 History cholecalciferol (vitamin D3) 50 2,000 unit PO DAILY 02/11/25 History mcg (2,000 unit) capsule omega 3 350 mg-dha 235 mg-epa 90 1 cap PO DAILY 02/11/25 History mg-fish oil 597 mg capsule,delay rel ([place]-3) vibegron 75 mg tablet (Gemtesa) 75 mg PO DAILY 5 02/11/25 History CPAP 05/21/24 02/11/25 History Pain Pump 05/21/24 02/11/25 History furosemide 20 mg tablet (Lasix) 20 mg PO QPM PRN weigh t gain 05/21/24 02/11/25 History guaifenesin 600 mg tablet, 600 mg PO Q12H PRN congesti on 05/21/24 02/11/25 History extended release 12 hr (Mucinex) loratadine 10 mg tablet (Claritin) 10 mg PO DAILY PRN allergy symptoms 05/21/24 02/11/25 History oxygen 05/21/24 02/11/25 History lidocaine 5 % topical patch See Rx Instructions .Route 07/23/24 02/11/25 Rx .COMPLEX #90 patches amlodipine 10 mg tablet 10 mg PO DAILY #90 tabs 08/0602/11/25 Rx fluoxetine 20 mg capsule 20 mg PO TID #270 caps 08/2702/11/25 Rx gabapentin 300 mg capsule 300 mg PO TID #270 caps 08/0602/11/25 Rx montelukast 10 mg tablet 10 mg PO DAILY #90 tabs 08/0602/11/25 Rx pantoprazole 40 mg tablet,delayed 40 mg PO BID #180 ta bs 08/27/24 02/11/25 Rx release pravastatin 40 mg tablet 40 mg PO DAILY #90 tabs 08/0602/11/25 Rx levothyroxine 150 mcg tablet 150 mcg PO DAILY #90 tabs 08/28/24 02/11/25 Rx (Synthroid) nebivolol 10 mg tablet (Bystolic) 10 mg PO DAILY #90 t abs 08/28/24 02/11/25 Rx folic acid 1 mg tablet 1 mg PO DAILY #90 tabs 09/0302/11/25 Rx nystatin 100,000 unit/gram topical 1 applic topical BI D PRN rash #60 11/01/24 02/11/25 Rx powder grams donepezil 5 mg tablet 5 mg PO QHS #90 tabs 5 02/11/25 Rx Allergies Allergy/AdvReac Type Severity Reaction Status Date / Time clindamycin Allergy Severe Chills Verified 02/11/25 11:46 diazepam Allergy Severe suicidal Verified 02/11/25 11:46 ideation levofloxacin (From Levaquin) Allergy Intermediate Itching Verified 02/11/25 11:46 cat dander Allergy Unknown Sinusitis Verified 02/11/25 11:46 dog dander Allergy Unknown Sinusitis Verified 02/11/25 11:46 feathers Allergy Unknown Sinusitis Verified 02/11/25 11:46 grass pollen Allergy Unknown Sinusitis Verified 02/11/25 11:46 house dust Allergy Unknown Sinusitis Verified 02/11/25 11:46 Rabbit Allergy Unknown Sinusitis Verified 02/11/25 11:46 tree and shrub pollen Allergy Unknown Sinusitis Verified 02/11/25 11:46 adhesive tape Allergy Redness of Verified 02/11/25 11:46 Skin silicone Allergy Unknown Verified 02/11/25 11:46 meperidine (From Demerol) AdvReac Hallucinati Verified 02/11/25 11:46 ng oxycodone (From Percocet) AdvReac Nausea Verified 02/11/25 11:46 propoxyphene AdvReac Nausea and Verified 02/11/25 11:46 Vomiting Vital Signs Vital Signs - 24 hr 02/12/25 13:46 02/12/25 13:46 02/12/25 14:00 Temperature Pulse Rate 74 74 72 Respiratory Rate 20 20 Blood Pressure Pulse Oximetry 95 Oxygen Delivery Nasal Cannula Oxygen Flow Rate 2 Fraction of Inspired Oxygen 02/12/25 14:00 02/12/25 14:06 02/12/25 15:59 Temperature 36.8 C Pulse Rate 75 74 Respiratory Rate 20 18 Blood Pressure 154/69 H Pulse Oximetry 93 95 Oxygen Delivery Nasal Cannula Oxygen Flow Rate 2 Fraction of Inspired Oxygen 02/12/25 16:00 02/12/25 16:00 02/12/25 16:50 Temperature Pulse Rate 95 73 Respiratory Rate 20 Blood Pressure Pulse Oximetry 97 Oxygen Delivery BiPAP Oxygen Flow Rate Fraction of Inspired Oxygen 02/12/25 17:11 02/12/25 17:13 02/12/25 17:39 Temperature Pulse Rate 77 75 82 Respiratory Rate 28 H 20 Blood Pressure Pulse Oximetry 97 Oxygen Delivery BiPAP Oxygen Flow Rate Fraction of Inspired Oxygen 02/12/25 19:18 02/12/25 19:57 02/12/25 20:00 Temperature 36.5 C Pulse Rate 82 74 Respiratory Rate 18 20 Blood Pressure 153/64 H Pulse Oximetry 94 96 Oxygen Delivery Nasal Cannula Oxygen Flow Rate 2 Fraction of Inspired Oxygen 02/12/25 20:00 02/12/25 20:00 02/12/25 20:06 Temperature Pulse Rate 76 80 76 Respiratory Rate 20 20 Blood Pressure Pulse Oximetry 96 Oxygen Delivery Nasal Cannula Oxygen Flow Rate 3 Fraction of Inspired Oxygen 02/12/25 22:00 02/12/25 22:20 02/13/25 00:00 Temperature Pulse Rate 70 82 82 Respiratory Rate 27 H 27 H Blood Pressure Pulse Oximetry 96 96 Oxygen Delivery BiPAP BiPAP Oxygen Flow Rate Fraction of Inspired Oxygen 36 02/13/25 00:00 02/13/25 00:23 02/13/25 01:18 Temperature 36.9 C Pulse Rate 77 77 77 Respiratory Rate 22 H 27 H Blood Pressure 141/81 H Pulse Oximetry 91 Oxygen Delivery Oxygen Flow Rate Fraction of Inspired Oxygen 02/13/25 01:20 02/13/25 02:00 02/13/25 04:00 Temperature Pulse Rate 77 82 76 Respiratory Rate 24 H 24 H Blood Pressure Pulse Oximetry 96 98 Oxygen Delivery BiPAP BiPAP Oxygen Flow Rate Fraction of Inspired Oxygen 36 02/13/25 04:00 02/13/25 04:12 02/13/25 04:37 Temperature 36.9 C Pulse Rate 82 80 68 Respiratory Rate 23 H 23 H Blood Pressure 151/73 H Pulse Oximetry 96 96 Oxygen Delivery BiPAP Oxygen Flow Rate Fraction of Inspired Oxygen 02/13/25 06:00 02/13/25 07:12 02/13/25 07:12 Temperature Pulse Rate 72 95 Respiratory Rate 24 H Blood Pressure Pulse Oximetry 97 Oxygen Delivery Nasal Cannula Oxygen Flow Rate 2 Fraction of Inspired Oxygen 02/13/25 07:23 02/13/25 07:56 02/13/25 08:50 Temperature 36.7 C Pulse Rate 97 91 91 Respiratory Rate 24 H 20 Blood Pressure 156/73 H Pulse Oximetry 93 Oxygen Delivery Oxygen Flow Rate Fraction of Inspired Oxygen 02/13/25 10:00 02/13/25 12:00 Temperature 36.6 C Pulse Rate 82 71 Respiratory Rate 20 Blood Pressure 145/62 H Pulse Oximetry 97 Oxygen Delivery Oxygen Flow Rate Fraction of Inspired Oxygen Exam 2 Const: General: cooperative, healthy appearing and comfortable O rientation/consciousness: oriented to person, oriented to place and oriented to time HENMT: Head: normal to inspection Ears: hearing grossly normal bilaterally Eyes: General: appearance normal, both eyes and all related structures Neck: Neck: normal visual inspection Chest: Chest palpation & inspection: normal inspection of the chest Resp: Effort & Inspection: normal respiratory effort and able to speak in complete sentences Auscultation: crackles, no rales, no rhonchi, no wheezes and lung sounds not diminished Other: Bibasilar dry inspiratory crackles left greater than right. No wheezing. Cardio: Jugular venous distension: no JVD GI: Inspection: normal to inspection GI Palp: No abdominal tenderness Skin: General skin exam: normal color Neuro: General: oriented to person, oriented to place and oriented to time Extrem: General: normal to inspection Other: Trace edema, this has improved per the . Psych: Appearance: grossly normal Results Laboratory Findings 02/13/25 03:29 02/13/25 03:29 ABG, PT/INR, D-dimer: ABG ABG pH 7.402 (7.350-7.450) 02/10/25 15:32 ABG pCO2 38.3 mmHg (35.0-45.0) 02/10/25 15:32 ABG pO2 75.3 mmHg (80.0-100.0) L 02/10/25 15:32 ABG O2 Saturation 95.2 % (95.0-100.0) 02/10/25 15:32 PT/INR, D-dimer PT 14.7 Seconds (11.1-14.7) 02/10/25 15:31 INR 1.1 02/10/25 15:31 Abnormal lab findings: Abnormal Labs 02/10/25 02/10/25 02/11/25 15:31 15:32 07:02 RBC 2.74 L 2.68 L Hgb 8.5 L 8.3 L Hct 26.4 L 25.4 L RDW 15.0 H 14.9 H Plt Count 132 L 125 L MPV 10.7 H 11.0 H Immature Gran % (Auto) Neut % (Auto) Lymph % (Auto) Baso % (Auto) Lymph # (Auto) Abs Immat Gran (auto) Neutrophils % (Manual) 94 H Band Neutrophils % Lymphocytes % (Manual) 9 L 3 L Monocytes % (Manual) 15 H Abs Neuts (Manual) 7.46 H Abs Lymphs (Manual) 0.63 L 0.23 L Abs Monocytes (Manual) 1.05 H APTT 36.9 H ABG pO2 75.3 L ABG O2 Content 12.0 L Reduced Hemoglobin 5.4 H Total Hemoglobin 9.1 L Sodium 128 L 129 L Chloride 97 L 96 L BUN Estimated GFR Glucose 166 H AST NT-Pro-B Natriuret Pep 3760 H Urine Ketones 02/11/25 02/12/25 02/13/25 07:38 07:52 03:29 RBC 2.92 L 2.75 L Hgb 9.1 L 8.8 L Hct 27.6 L 26.1 L RDW 14.6 H Plt Count 144 L MPV 10.7 H 11.2 H Immature Gran % (Auto) 3.0 H Neut % (Auto) 84.3 H Lymph % (Auto) 7.1 L Baso % (Auto) 0.1 L Lymph # (Auto) 0.51 L Abs Immat Gran (auto) 0.22 H Neutrophils % (Manual) Band Neutrophils % 16 H Lymphocytes % (Manual) 6.0 L Monocytes % (Manual) Abs Neuts (Manual) 8.27 H Abs Lymphs (Manual) 0.56 L Abs Monocytes (Manual) APTT ABG pO2 ABG O2 Content Reduced Hemoglobin Total Hemoglobin Sodium 131 L 125 L Chloride 97 L 91 L BUN 20 H 27 H Estimated GFR 57 L Glucose 139 H 147 H AST 48 H 53 H NT-Pro-B Natriuret Pep Urine Ketones Trace H Diagnostic Findings Additional studies: ITS Impressions Chest X-Ray 02/10/25 16:03 Impression: CHF. Superimposed probable pneumonia. The findings appear progressed compared to the previous study.
--- NOTE | 2025-02-13 14:04 | ECHO_ITS ---
Patient Info Name: Marialuisa Darden Age: 79 years : 1945 Gender: Female Ht: 63 in Wt: 200 lbs BSA: 2.05 m2 HR: 97 bpm BP: 145 / 62 mmHg Technical Quality: Fair Exam Date: 02/13/2025 4:06 PM Patient Status: I Admit Date: 02/11/2025 Exam Type: CA echo doppler color flow Complete two-dimensional, color flow and Doppler transthoracic echocardiogram is performed. Staff Referring Physician: Tad Bland Firmware Test Engineer: Tom Fernandez III Attending Provider: Cornelio Chi MD Summary 1. Complete two-dimensional, color flow and Doppler transthoracic echocardiogram is performed. 2. Left ventricular chamber dimension is moderately enlarged. 3. Left ventricular systolic function is normal, estimated at 55-60. 4. The left ventricular diastolic function is abnormal. 5. E/e' 10 is mildly elevated. 6. Left atrial chamber dimension is severely enlarged. 7. Right atrial chamber dimension is moderately enlarged. 8. There is trace aortic valve regurgitation. 9. The mitral valve has a mildly calcified annulus. 10. There is mild mitral valve regurgitation. 11. There is trace tricuspid valve regurgitation. 12. Mild pulmonary hypertension, estimated pulmonary arterial systolic pressure is 40 mmHg. 13. There is trace pulmonic regurgitation. Left Ventricle E/e' 10 is mildly elevated. Left ventricular chamber dimension is moderately enlarged. Left ventricular systolic function is normal, estimated at 55-60. The left ventricular diastolic function is abnormal. Right Ventricle Right ventricular chamber dimension is normal. Right ventricular systolic function is normal and with normal TAPSE 1.8 cm. Left Atria Left atrial chamber dimension is severely enlarged. Right Atria Right atrial chamber dimension is moderately enlarged. Aortic Valve The aortic valve is trileaflet. There is no aortic valve stenosis. There is trace aortic valve regurgitation. Pulmonic Valve There is trace pulmonic regurgitation. Mitral Valve The mitral valve has a mildly calcified annulus. There is no mitral valve stenosis. There is mild mitral valve regurgitation. Tricuspid Valve There is trace tricuspid valve regurgitation. Mild pulmonary hypertension, estimated pulmonary arterial systolic pressure is 40 mmHg. Pericardium/Pleural There is no pericardial effusion. Inferior Vena Cava Normal inferior vena cava with >50% collapse upon inspiration consistent with normal right atrial pressure, 5 mmHg. Aorta The aortic root size at the sinus of Valsalva is normal. Left Ventricular Outflow Tract Name Value Normal LVOT 2D LVOT Diameter 2.1 cm LVOT Doppler LVOT Peak Velocity 133 cm/s LVOT Peak Gradient 7 mmHg LVOT Mean Gradient 4 mmHg LVOT VTI 29 cm LVOT VTI/AV VTI Ratio 0.8 LVOT Stroke Volume 100 ml LVOT CO 7.1 l/min LVOT CI 3.5 l/min/m2 Pulmonic Valve Name Value Normal PV Doppler PV Peak Velocity 131 cm/s PV Peak Gradient 7 mmHg PV Mean Gradient 3 mmHg PV Regurgitation Doppler IA Peak End Diastolic Velocity 100 cm/s Mitral Valve Name Value Normal MV Doppler MV Peak Gradient 5 mmHg MV Mean Gradient 2 mmHg MV Area (Cont Eq VTI) 3.6 cm2 MV Regurgitation Doppler MR Peak Gradient 104 mmHg MV Diastolic Function MV E Peak Velocity 103 cm/s MV A Peak Velocity 79 cm/s MV E/A 1.3 MV Decel Time (PW) 211 ms MV Annular TDI MV E/e' (Septal) 17.9 MV E/e' (Lateral) 7.9 MV E/e' (Average) 12.9 Tricuspid Valve Name Value Normal TV Regurgitation Doppler TR Peak Velocity 297 cm/s TR Peak Gradient 35 mmHg Estimated PAP/RSVP RA Pressure 5 mmHg <=5 PA Systolic Pressure 40 mmHg <36 RV Systolic Pressure 40 mmHg <36 TV Annular TDI TV Lateral Yeni s' Velocity 15.5 cm/s >=9.5 Aortic Valve Name Value Normal AV Doppler AV Peak Velocity 168 cm/s AV Peak Gradient 11 mmHg AV Mean Gradient 7 mmHg AV VTI 37 cm AV Area (Cont Eq VTI) 2.7 cm2 >=3.0 AV Area (Cont Eq Andrea) 2.8 cm2 AV DI (Andrea) 0.79 AV Regurgitation 2D LVOT Area 3.5 cm2 Ventricles Name Value Normal LV Dimensions 2D/MM IVS Diastolic Thickness (2D) 0.9 cm 0.6-1.0 LVID Diastole (2D) 5.5 cm 3.8-5.2 LVIW Diastolic Thickness (2D) 0.8 cm 0.6-0.9 LVID Systole (2D) 4.0 cm 2.2-3.5 LVOT Diameter 2.1 cm LV Mass (2D Cubed) 180.10 g 67.00-162.00 LV Mass Index (2D Cubed) 88 g/m2 43-95 Relative Wall Thickness (2D) 0.30 <=0.42 LV Fractional Shortening/Ejection Fraction 2D/MM LV Fractional Shortening (2D) 27 % 27-45 LV EF (2D Teichholz) 52 % LV Diastolic Volume (4C MOD) 156 ml LV EF (4C MOD) 56 % LV Diastolic Volume (2C MOD) 94 ml LV EF (2C MOD) 55 % LV Diastolic Volume (BP MOD) 126 ml 46-106 LV Diastolic Volume Index (BP MOD) 61 ml/m2 29-61 LV Systolic Volume (BP MOD) 56 ml 14-42 LV Systolic Volume Index (BP MOD) 27 ml/m2 8-24 LV EF (BP MOD) 55 % 54-74 LV Diastolic Length (4C) 7.7 cm LV Systolic Length (4C) 6.2 cm LV Stroke Volume (4C MOD) 88 ml Atria Name Value Normal LA Dimensions LA Volume (4C A-L) 133 ml LA Volume (BP A-L) 116 ml RA Dimensions RA Systolic Major [place] Length (4C) 7.5 cm 2.2-2.8 RA Area (4C) 29.5 cm2 <=18.0 Report Signatures
[2025-02-13 14:25] LABS: Procalcitonin 0.1 ng/mL
[2025-02-13 15:04] LABS: CRP 1.1 mg/dL (<1.0)
[2025-02-13 15:10] LABS: NT Pro B Type Natriuretic Pept 13500 pg/mL (19.9-100)
[2025-02-13] MEDS: cefTRIAXone 1 GM in SODIUM CHLORIDE 0.9% IV 50 ML 100 ML IVPB (17:49)
[2025-02-13] MEDS: AZITHROMYCIN IV 500 MG in SODIUM CHLORIDE 0.9% IV 250 ML IVPB (20:19)
[2025-02-13] MEDS: guaiFENesin 12 HR 600 MG TABCR 1200 MG PO (20:19)
[2025-02-13] MEDS: DONEPEZIL HCL 5 MG TABLET PO (20:20)
[2025-02-14] VITALS (22 sets, daily range): BP systolic 107–146; BP diastolic 63–86; PULSE 55–120; RESP 16–24; TEMP 36.1–36.8; O2SAT 94–99
[2025-02-14] MEDS: IPRATROPIUM 0.5 MG/ALBUTEROL SULFATE 2.5 MG (BASE) AMPUL.NEB 3 ML INHALATION ×4 (01:30→20:12)
[2025-02-14] MEDS: LEVOTHYROXINE SODIUM 150 MCG TABLET PO (05:43)
[2025-02-14] MEDS: GABAPENTIN 300 MG CAPSULE PO ×3 (05:43→21:18)
[2025-02-14 06:11] LABS: Hematocrit 27.2 % (37.0-47.0); Hemoglobin 9.1 g/dL (12.0-15.0); Mean Corpuscular HGB Conc 33.5 g/dl (32-36); Mean Corpuscular Hemoglobin 30.7 pg (26-34); Mean Corpuscular Volume 91.9 fl (80-100); Platelet Count Result 142 k/mm3 (150-375); Red Blood Count 2.96 M/mm3 (4.2-5.4); White Blood Count 7.9 K/mm3 (4.5-10.0)
[2025-02-14 06:35] LABS: Band Neutrophils Percent 21 % (0-6); Lymphocytes Absolute Manual 0.55 K/mm3 (1.1-4.5); Lymphocytes Percent Manual 7 % (18-44); Monocytes Absolute Manual 0.23 K/mm3 (0.1-0.90); Monocytes Percent Manual 3 % (3-9); Neutrophils Absolute Manual 7.11 K/mm3 (1.3-6.7); Neutrophils Percent Manual 69 % (46-73); Total Cells Counted 100
[2025-02-14 06:36] LABS: Hypochromasia 1+
[2025-02-14 06:37] LABS: Acanthocytes 1+; Ovalocytes 1+
[2025-02-14 06:38] LABS: Burr Cells 1+; Schistocytes Occasional
[2025-02-14 07:12] LABS: Alanine Aminotransferase 34 U/L (6-35); Albumin Level 4.1 g/dL (3.5-5.1); Alkaline Phosphatase 74 U/L (38-126); Anion Gap 7 mmol/L (4-12); Aspartate Amino Transferase 46 U/L (14-36); Bilirubin,Total 0.9 mg/dL (0.2-1.3); Blood Urea Nitrogen 24 mg/dL (7-17); Calcium 9.5 mg/dL (8.4-10.2); Carbon Dioxide 30 mmol/L (22-30); Chloride 89 mmol/L (98-107); Creatine Kinase 181 U/L (30-135); Estimated CRCL calculation 49 ml/min; Estimated Glomerular Filt Rate > 60; Glucose 146 mg/dL (65-110); Potassium 3.9 mmol/L (3.4-5.0); Sodium 126 mmol/L (137-145); Total Protein 7.2 g/dL (6.3-8.2)
--- NOTE | 2025-02-14 07:37 | P.PNIM_ITS ---
Assessment and Plan Assessment and Plan (1) Asthma with exacerbation: Code(s): J45.901 - Unspecified asthma with (acute) exacerbation Status: Acute Assessment and Plan: * Oxygen requirement: 2L NC (at baseline) * Chest XR CHF. Superimposed probable pneumonia. The findings appear progressed compared to the previous study. * ABG * Current treatment: duoneb and steroid q 6 hr * Pulmonology following * Continue Solu-Medrol 60 mg IV q.6 hours, DuoNebs q.6 hours, Singulair 10 mg q.day * Increase guaifenesin from 60 mg p.o. b.i.d. to 1200 mg p.o. b.i.d. * Continue ceftriaxone and azithromycin * Pending respiratory panel, urine for Legionella/pneumococcal antigen and mycoplasma IgM * D-dimer positive: 0.70 * Chest CTA negative for PE, showed emphysematous lungs with mild ground-glass opacity of lung bases due to mild congestive changes (2) Acute and chronic respiratory failure: Qualifiers: Respiratory failure complication: hypoxia Qualified Code(s): J96.21 - Acute and chronic respiratory failure with hypoxia Code(s): J96.20 - Acute and chronic respiratory failure, unspecified whether with hypoxia or hypercapnia Status: Acute Assessment and Plan: Acute on chronic respiratory failure. At baseline requires 2 L nasal cannula at all times. Now requiring 4 L nasal cannula to maintain O2 sat greater than 92%. Subsequently placed on BiPAP for work of breathing. Initial ABG in the ED showed no significant derangements. Workup/clinical picture concerning for CHF exacerbation, pneumonia, and COPD exacerbation. * Lasix 40 mg daily for CHF exacerbation * broad-spectrum antibiotics and supportive care for pneumonia * started on BiPAP in the ED on 02/10, continued inpatient * schedule DuoNebs and prednisone for COPD exacerbation * continue supplemental oxygen to maintain O2 sat greater than 92%, may wean to baseline O2 requirement as tolerated * Off BIPAP, now back on 2L NC which is her baseline * Pulmonology following * Chest CTA negative for evidence of PE * Bilateral lower extremity venous Doppler: Negative for DVT (3) Pneumonia: Qualifiers: Laterality: bilateral Lung location: unspecified part of lung Pneumonia type: due to unspecified organism Qualified Code(s): J18.9 - Pneumonia, unspecified organism Code(s): J18.9 - Pneumonia, unspecified organism Status: Acute Assessment and Plan: * CXR concerning for CHF in superimposed probable pneumonia (Bilateral infiltrates). * reporting productive cough. No nausea, vomiting, diarrhea, fever, chills. No leukocytosis. Did not meet SIRS criteria. * started on ceftriaxone and azithromycin 02/10 * supportive care including Mucinex, Tessalon Perles, Tylenol * viral PCR negative on 02/10 * Continue ABX (4) Acute exacerbation of CHF (congestive heart failure): Qualifiers: Heart failure type: diastolic Qualified Code(s): I50.33 - Acute on chronic diastolic (congestive) heart failure Code(s): I50.9 - Heart failure, unspecified Status: Acute Assessment and Plan: * CXR concerning for moderate pulmonary venous congestion consistent with CHF exacerbation. * History of diastolic dysfunction. * Last echo in 2022 which showed hyperdynamic systolic function with an estimated EF greater than 70%, grade 1 diastolic dysfunction, LA mildly enlarged, no pulmonary hypertension, mild AV sclerosis. * Reports new swelling x1 day prior to arrival. BNP elevated upon admission. * Echocardiogram 02/13/25: EF 55-60%, severe enlargement left atrial chamber, moderate enlargement right atrial chamber, mild pulmonary hypertension, trace AVR/TVR, mild MVR * Lasix 40 mg daily, 1st dose today on 02/10 * monitor daily weights and I&Os * monitor renal function (5) Interstitial lung disease: Code(s): J84.9 - Interstitial pulmonary disease, unspecified Status: Acute Assessment and Plan: * For seen on CT scan 10/02/does not 22 * PFTs on not 24 consistent with mild restrictive abnormality with a FEV1 of 1.68 L with significant decrease in FEV 1 with repeat PFTs on 12/08/2021 * Obtain repeat chest CT scan to assess progression of eye LD * Continue Solu-Medrol 60 mg IV q.6 hours * Repeat serologies pending (6) Hypertension: Qualifiers: Hypertension type: primary hypertension Qualified Code(s): I10 - Essential (primary) hypertension Code(s): I10 - Essential (primary) hypertension Status: Chronic Assessment and Plan: * chronic, currently 111/70, stable. * continue home medications * monitor (7) Hypothyroidism: Qualifiers: Hypothyroidism type: acquired Qualified Code(s): E03.9 - Hypothyroidism, unspecified Code(s): E03.9 - Hypothyroidism, unspecified Status: Chronic Assessment and Plan: * Stable * TSH 0.713 in October of 2024 * continue Synthroid (8) NBA on CPAP: Code(s): G47.33 - Obstructive sleep apnea (adult) (pediatric); Z99.89 - Dependence on other enabling machines and devices Status: Chronic Assessment and Plan: * continue home CPAP Plan Diet: heart healthy GI Prophylaxis: n/a DVT Prophylaxis: Lovenox SQ IV fluids: none, diuresing Lines/Tubes: pIV Code Status: full code Subjective Date/time seen: 02/14/25 07:37 Interval history: 79 y/o F with PMH of dementia, chronic respiratory failure, diastolic dysfunction, anemia, COPD, hypertension, fibromyalgia among other chronic medical conditions presents here with shortness of breath. 02/14/2025 Patient sitting comfortably at bedside during of examination. She reports her breathing has much improved since yesterday and endorses significant decrease in coughing. Still has some bibasilar crackles, but no wheezing. Remains afebrile without leukocytosis. At baseline O2 requirement. Pulmonology consulted, following closely. Repeat serologies pending. LE bilateral ultrasound negative for DVT, chest CTA negative for PE. Continue treatment for asthma/pneumonia/CHF exacerbation. Review of Systems Review of Systems: All systems reviewed & are unremarkable except as noted in HPI and below Exam Const: General: comfortable and no acute distress Other: , female elderly, nontoxic appearance HENMT: Face/Nose/Sinus: Normal nares present Mouth: Yes moist mucous membranes Eyes: General: appearance normal, both eyes and all related structures Sclera: sclerae normal Pupils: Equal, round and reactive pupils present EOM: EOMs intact bilaterally Resp: Other: mild tachypnea without accessory muscle use. Tolerating BiPAP well. Expiratory wheezing bilaterally. Faint bibasilar crackles. Cardio: Rate: regular rate Rhythm: regular rhythm Other: S1-S2 present without murmur, rub, ectopy GI: Other: Abdomen soft, nondistended, nontender. Normoactive bowel sounds in all quadrants. Skin: General skin exam: normal color and no rashes or lesions noted Other: Ecchymosis to the left forearm in no particular pattern. Neuro: Cranial nerves: Yes Equal, round and reactive pupils present Speech: normal speech Motor exam (neuro): 5/5 motor strength present throughout Sensory Exam: normal sensation Other: Alert and orientated times 2-3. Extrem: Other: Trace to 1+ pitting edema, symmetric Psych: Mental Status: mental status grossly normal Affect: normal affect Other: fair insight and judgment, pleasant. No current hallucinations. Objective Data Vital Signs Vital Signs: Vital Signs - 24 hr 02/13/25 07:56 02/13/25 08:00 02/13/25 08:50 Temperature 98.1 F Pulse Rate 91 92 91 Respiratory Rate 20 Blood Pressure 156/73 H Pulse Oximetry 93 Oxygen Delivery Oxygen Flow Rate Fraction of Inspired Oxygen 02/13/25 10:00 02/13/25 12:00 02/13/25 12:00 Temperature 98 F Pulse Rate 82 71 81 Respiratory Rate 20 Blood Pressure 145/62 H Pulse Oximetry 97 Oxygen Delivery Oxygen Flow Rate Fraction of Inspired Oxygen 02/13/25 13:11 02/13/25 13:20 02/13/25 14:00 Temperature Pulse Rate 74 97 78 Respiratory Rate 24 H 24 H Blood Pressure Pulse Oximetry Oxygen Delivery Oxygen Flow Rate Fraction of Inspired Oxygen 02/13/25 15:30 02/13/25 16:00 02/13/25 18:00 Temperature 98.2 F Pulse Rate 70 72 71 Respiratory Rate 18 Blood Pressure 146/59 H Pulse Oximetry 99 Oxygen Delivery Oxygen Flow Rate Fraction of Inspired Oxygen 02/13/25 20:00 02/13/25 20:00 02/13/25 20:00 Temperature 98.3 F Pulse Rate 66 68 64 Respiratory Rate 18 20 Blood Pressure 142/75 H Pulse Oximetry 93 96 Oxygen Delivery High Flow Nasal Cannula Oxygen Flow Rate 3 Fraction of Inspired Oxygen 36 02/13/25 20:46 02/13/25 20:54 02/13/25 22:00 Temperature Pulse Rate 67 69 60 Respiratory Rate 20 20 Blood Pressure Pulse Oximetry 96 Oxygen Delivery High Flow Nasal Cannula Oxygen Flow Rate 10 Fraction of Inspired Oxygen 02/13/25 22:03 02/13/25 22:07 02/14/25 00:00 Temperature 97.4 F L Pulse Rate 72 73 61 Respiratory Rate 20 18 Blood Pressure 139/81 Pulse Oximetry 92 92 95 Oxygen Delivery Autopap Autopap Oxygen Flow Rate Fraction of Inspired Oxygen 28 02/14/25 00:00 02/14/25 00:00 02/14/25 01:06 Temperature Pulse Rate 64 60 64 Respiratory Rate 18 Blood Pressure Pulse Oximetry 94 94 Oxygen Delivery Autopap Autopap Oxygen Flow Rate 2 Fraction of Inspired Oxygen 02/14/25 02:00 02/14/25 04:00 02/14/25 04:00 Temperature 97.0 F L Pulse Rate 56 L 56 L 62 Respiratory Rate 18 18 Blood Pressure 145/73 H Pulse Oximetry 94 94 Oxygen Delivery Autopap Oxygen Flow Rate 3 Fraction of Inspired Oxygen 02/14/25 04:00 02/14/25 06:00 Temperature Pulse Rate 59 L 55 L Respiratory Rate Blood Pressure Pulse Oximetry Oxygen Delivery Oxygen Flow Rate Fraction of Inspired Oxygen Intake/Output Intake/Output: Intake & Output 02/11/25 02/12/25 02/13/25 02/14/25 23:59 23:59 23:59 23:59 Intake Total 300 1960 720 Output Total 4770 3000 2210 400 [facility] -[id number] -[phone] -1490 -400 Meds/Results Medications: Active Medications Generic Name Dose Route Start Last Admin Trade Name Freq PRN Reason Stop Dose Admin Acetaminophen 650 mg 02/10/25 19:39 Acetaminophen 325 Mg Tablet PO Q6H PRN Mild Pain (1-3) or Fever Albuterol 2.5 mg 02/12/25 12:50 02/12/25 16:50 Albuterol Sulfate Neb 2.5 Mg/3 Ml Inh INHALATION 2.5 mg Q6-8H PRN Administration Shortness Of Breath Or Wheezing Albuterol 1 - 2 puff 02/12/25 12:50 Albuterol Sulfate (*Sp) Aerosol 1 Puff INHALATION Q4-6H PRN Shortness Of Breath Or Wheezing Albuterol/Ipratropium 3 ml 02/10/25 20:00 02/14/25 01:30 Ipratropium 0.5 Mg/Albuterol Sulfate 2.5 Mg (Base) Ampul.Neb 3 Ml INHALATION 3 ml Q6HRT VIN Administration Amlodipine Besylate 10 mg 02/13/25 09:00 02/13/25 08:44 Amlodipine Besylate 10 Mg Tablet PO 10 mg DAILY VIN Administration Aspirin 81 mg 02/13/25 09:00 02/13/25 08:44 Aspirin 81 Mg Enteric Tablet PO 81 mg QAM VIN Administration Benzonatate 100 mg 02/10/25 19:39 Benzonatate 100 Mg Capsule PO TID PRN Cough Diclofenac Sodium 1 applic 02/12/25 12:50 Diclofenac Sodium 1% 100 Gm Gel (*Bkc) TOPICAL QID PRN Pain Docusate Sodium 100 mg 02/12/25 17:00 02/13/25 17:54 Docusate Sodium 100 Mg Capsule PO 100 mg BID VIN Administration Donepezil HCl 5 mg 02/12/25 21:00 02/13/25 20:20 Donepezil Hcl 5 Mg Tablet PO 5 mg QHS VIN Administration Enoxaparin Sodium 40 mg 02/11/25 09:00 02/13/25 08:43 Enoxaparin 40 Mg/0.4 Ml Syringe SUB-Q 40 mg DAILY VIN Administration Fish Oil 1 gm 02/13/25 09:00 02/13/25 08:43 [place] 3 Polyunsat Fatty Acids 1 Gm Cap PO 1 gm QAM VIN Administration Fluoxetine HCl 20 mg 02/12/25 13:00 02/13/25 17:54 Fluoxetine Hcl 20 Mg Capsule PO 20 mg TID VIN Administration Fluticasone/Umeclidinium/Vilanterol 1 puff 02/13/25 09:00 02/13/25 07:09 Fluticasone/Umeclidin/Vilanter 200-62.5-25 Mcg Ellipta INHALATION 1 puff DAILY VIN Administration Folic Acid 1 mg 02/13/25 09:00 02/13/25 08:45 Folic Acid 1 Mg Tablet PO 1 mg DAILY VIN Administration Furosemide 40 mg 02/10/25 19:40 02/13/25 08:43 Furosemide Inj 40 Mg/4 Ml Vial IV PUSH 40 mg DAILY VIN Administration Furosemide 20 mg 02/12/25 12:50 Furosemide 20 Mg Tablet PO QPM PRN weight gain Gabapentin 300 mg 02/12/25 14:00 02/14/25 05:43 Gabapentin 300 Mg Capsule PO 300 mg Q8HR VIN Administration Guaifenesin 1,200 mg 02/13/25 21:00 02/13/25 20:19 Guaifenesin 12 Hr 600 Mg Tabcr PO 1,200 mg Q12HR VIN Administration Ceftriaxone Sodium 1 gm/ 50 mls @ 100 mls/hr 02/11/25 17:00 02/13/25 17:49 Sodium Chloride IVPB 100 mls/hr Q24H VIN Administration Azithromycin 500 mg/ Sodium 250 mls @ 250 mls/hr 02/11/25 20:00 02/13/25 20:19 Chloride IVPB 02/14/25 20:59 250 mls/hr Q24H VIN Administration Levothyroxine Sodium 150 mcg 02/13/25 06:30 02/14/25 05:43 Levothyroxine Sodium 150 Mcg Tablet PO 150 mcg DAILY@0630 VIN Administration Lidocaine 1 patch 02/13/25 09:00 02/13/25 08:43 Lidocaine 5% Patch TOPICAL 1 patch DAILY VIN Administration Loratadine 10 mg 02/12/25 12:50 Loratadine 10 Mg Tablet PO DAILY PRN allergy symptoms Methylprednisolone Sodium Succinate 60 mg 02/10/25 21:00 02/14/25 05:43 Methylprednisolone Sod Succ 125 Mg Vial IV PUSH 60 mg Q6H VIN Administration Miscellaneous Information 1 each 02/12/25 00:01 02/14/25 01:47 Albuterol Updraft And Inhaler Have Duplicate Prn Indications Please Clarify XX 03/14/25 00:00 Not Given CLARIFY VIN Miscellaneous Information 1 each 02/12/25 00:01 02/14/25 01:47 Nonformulary Drug (Vibegron [Gemtesa] 75 Mg Tablet)Can Patient Use From Home? XX 03/14/25 00:00 Not Given CLARIFY VIN Montelukast Sodium 10 mg 02/13/25 09:00 02/13/25 08:45 Montelukast Sodium 10 Mg Tablet PO 10 mg DAILY VIN Administration Nebivolol 10 mg 02/13/25 09:00 02/13/25 08:50 Nebivolol Hcl 5 Mg Tablet PO 10 mg DAILY VIN Administration Non-Formulary Medication 75 mg 02/13/25 09:00 Vibegron [Gemtesa] PO 03/15/25 08:59 DAILY VIN Pantoprazole Sodium 40 mg 02/12/25 21:00 02/13/25 20:19 Pantoprazole 40 Mg Tablet PO 40 mg Q12HR VIN Administration Perflutren Lipid Microsphere 0 ml 02/13/25 14:04 Perflutren Lipid Microspheres 1.5 Ml Vial Diluted To 10 Ml Total Volume IV PUSH 02/16/25 14:04 ONCE PRN adequate visualization Protocol Pravastatin Sodium 40 mg 02/13/25 09:00 02/13/25 08:44 Pravastatin Sodium 20 Mg Tablet PO 40 mg DAILY VIN Administration Spironolactone 25 mg 02/13/25 09:00 02/13/25 08:43 Spironolactone 25 Mg Tablet PO 25 mg DAILY VIN Administration Telmisartan 40 mg 02/12/25 21:00 02/13/25 20:19 Telmisartan 40 Mg Tablet PO 40 mg Q12HR VIN Administration Vitamin D 50 mcg 02/13/25 09:00 02/13/25 08:44 Cholecalciferol (Vitamin D3) 125 Mcg (5,000 Units) Tablet PO 50 mcg DAILY VIN Administration Radiology Results: ITS Impressions Chest X-Ray 02/10/25 16:03 Impression: CHF. Superimposed probable pneumonia. The findings appear progressed compared to the previous study. Chest CTA 02/13/25 15:24 IMPRESSION: 1. No evidence of pulmonary emboli. No acute abnormalities of thoracic aorta. 2. Emphysematous lungs. Mild groundglass opacity of lung bases due to mild congestive changes. No pleural or pericardial effusion. 3. Severe scoliosis and postsurgical changes with degenerative disc disease of thoracolumbar spine. Venous Doppler Study 02/13/25 17:12 Impression: Negative for DVT. Labs Labs: Laboratory Results - last 24 hr 02/13/25 02/13/25 02/14/25 03:29 14:01 05:39 WBC RBC Hgb Hct MCV MCH MCHC RDW Plt Count MPV Immature Gran % (Auto) Neut % (Auto) Lymph % (Auto) Humphreys % (Auto) Eos % (Auto) Baso % (Auto) Lymph # (Auto) Humphreys # (Auto) Eos # (Auto) Baso # (Auto) Abs Immat Gran (auto) Absolute Neuts (auto) Absolute Nucleated RBC Total Counted Neutrophils % (Manual) Band Neutrophils % Lymphocytes % (Manual) Monocytes % (Manual) Nucleated RBC % Abs Neuts (Manual) Abs Lymphs (Manual) Abs Monocytes (Manual) Platelet Estimate Hypochromasia Ovalocytes [place] Cells Acanthocytes (Spur) Schistocytes D-Dimer 0.70 H Sodium 126 L Potassium 3.9 Chloride 89 L Carbon Dioxide 30 Anion Gap 7 BUN 24 H Creatinine 0.86 Estim Creat Clear Calc 49 Estimated GFR > 60 Glucose 146 H Calcium 9.5 Total Bilirubin 0.9 AST 46 H ALT 34 Alkaline Phosphatase 74 Total Creatine Kinase 181 H C-Reactive Protein 1.1 NT-Pro-B Natriuret Pep 28258 H Total Protein 7.2 Albumin 4.1 Procalcitonin 0.1 Rheumatoid Factor < 12.0 Rheumatoid Factor Scrn Rheumatoid Factor Titer Anti-Cycl Citrul Peptide Anti-Proteinase 3 FEIA c/o 1.9 Anti-Myeloperoxidase 02/14/25 02/14/25 05:52 05:53 WBC 7.9 RBC 2.96 L Hgb 9.1 L Hct 27.2 L MCV 91.9 MCH 30.7 MCHC 33.5 RDW 14.1 Plt Count 142 L MPV 11.5 H Immature Gran % (Auto) Not Reportable Neut % (Auto) Not Reportable Lymph % (Auto) Not Reportable Humphreys % (Auto) Not Reportable Eos % (Auto) Not Reportable Baso % (Auto) Not Reportable Lymph # (Auto) Not Reportable Humphreys # (Auto) Not Reportable Eos # (Auto) Not Reportable Baso # (Auto) Not Reportable Abs Immat Gran (auto) Not Reportable Absolute Neuts (auto) Not Reportable Absolute Nucleated RBC Not Reportable Total Counted 100 Neutrophils % (Manual) 69 Band Neutrophils % 21 H Lymphocytes % (Manual) 7 L Monocytes % (Manual) 3 Nucleated RBC % Not Reportable Abs Neuts (Manual) 7.11 H Abs Lymphs (Manual) 0.55 L Abs Monocytes (Manual) 0.23 Platelet Estimate Slightly decreased Hypochromasia 1+ Ovalocytes 1+ Regi Cells 1+ Acanthocytes (Spur) 1+ Schistocytes Occasional D-Dimer Sodium Potassium Chloride Carbon Dioxide Anion Gap BUN Creatinine Estim Creat Clear Calc Estimated GFR Glucose Calcium Total Bilirubin AST ALT Alkaline Phosphatase Total Creatine Kinase C-Reactive Protein NT-Pro-B Natriuret Pep Total Protein Albumin Procalcitonin Rheumatoid Factor Rheumatoid Factor Scrn Cancelled Rheumatoid Factor Titer Cancelled Anti-Cycl Citrul Peptide Cancelled Anti-Proteinase 3 FEIA c/o 1.9 Cancelled Anti-Myeloperoxidase Cancelled Quality VTE Prophylaxis VTE prophylaxis: pharmacologic ordered
[2025-02-14] MEDS: LIDOCAINE 5% PATCH 1 PATCH TOPICAL (09:22)
[2025-02-14] MEDS: ASPIRIN 81 MG ENTERIC TABLET PO (09:24)
[2025-02-14] MEDS: ENOXAPARIN 40 MG/0.4 ML SYRINGE SUB-Q (09:24)
[2025-02-14] MEDS: DOCUSATE SODIUM 100 MG CAPSULE PO ×2 (09:24→18:21)
[2025-02-14] MEDS: OMEGA 3 POLYUNSAT FATTY ACIDS 1 GM CAP PO (09:24)
[2025-02-14] MEDS: SPIRONOLACTONE 25 MG TABLET PO (09:25)
[2025-02-14] MEDS: PRAVASTATIN SODIUM 20 MG TABLET 40 MG PO (09:25)
[2025-02-14] MEDS: guaiFENesin 12 HR 600 MG TABCR 1200 MG PO ×2 (09:25→21:18)
[2025-02-14] MEDS: FOLIC ACID 1 MG TABLET PO (09:25)
[2025-02-14] MEDS: MONTELUKAST SODIUM 10 MG TABLET PO (09:25)
[2025-02-14] MEDS: TELMISARTAN 40 MG TABLET PO ×2 (09:25→21:18)
[2025-02-14] MEDS: CHOLECALCIFEROL (VITAMIN D3) 125 MCG (5,000 UNITS) TABLET 50 MCG PO (09:25)
[2025-02-14] MEDS: PANTOPRAZOLE 40 MG TABLET PO ×2 (09:26→21:18)
[2025-02-14] MEDS: NEBIVOLOL HCL 5 MG TABLET 10 MG PO (09:28)
--- NOTE | 2025-02-14 12:02 | PM.PNPUL ---
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 greater than right. No wheezing. Cardio: Jugular venous distension: no JVD GI: Inspection: normal to inspection Skin: General skin exam: normal color Neuro: General: oriented to person, oriented to place and oriented to time Extrem: General: normal to inspection Other: Trace edema, this has improved per the . Psych: Appearance: grossly normal Objective Data Vital Signs Vital Signs: Vital Signs - 24 hr 02/13/25 13:11 02/13/25 13:20 02/13/25 14:00 Temperature Pulse Rate 74 97 78 Respiratory Rate 24 H 24 H Blood Pressure Pulse Oximetry Oxygen Delivery Oxygen Flow Rate Fraction of Inspired Oxygen 02/13/25 15:30 02/13/25 16:00 02/13/25 18:00 Temperature 36.8 C Pulse Rate 70 72 71 Respiratory Rate 18 Blood Pressure 146/59 H Pulse Oximetry 99 Oxygen Delivery Oxygen Flow Rate Fraction of Inspired Oxygen 02/13/25 20:00 02/13/25 20:00 02/13/25 20:00 Temperature 36.8 C Pulse Rate 66 68 64 Respiratory Rate 18 20 Blood Pressure 142/75 H Pulse Oximetry 93 96 Oxygen Delivery High Flow Nasal Cannula Oxygen Flow Rate 3 Fraction of Inspired Oxygen 36 02/13/25 20:46 02/13/25 20:54 02/13/25 22:00 Temperature Pulse Rate 67 69 60 Respiratory Rate 20 20 Blood Pressure Pulse Oximetry 96 Oxygen Delivery High Flow Nasal Cannula Oxygen Flow Rate 10 Fraction of Inspired Oxygen 02/13/25 22:03 02/13/25 22:07 02/14/25 00:00 Temperature 36.3 C L Pulse Rate 72 73 61 Respiratory Rate 20 18 Blood Pressure 139/81 Pulse Oximetry 92 92 95 Oxygen Delivery Autopap Autopap Oxygen Flow Rate Fraction of Inspired Oxygen 28 02/14/25 00:00 02/14/25 00:00 02/14/25 01:06 Temperature Pulse Rate 64 60 64 Respiratory Rate 18 Blood Pressure Pulse Oximetry 94 94 Oxygen Delivery Autopap Autopap Oxygen Flow Rate 2 Fraction of Inspired Oxygen 02/14/25 02:00 02/14/25 04:00 02/14/25 04:00 Temperature 36.1 C L Pulse Rate 56 L 56 L 62 Respiratory Rate 18 18 Blood Pressure 145/73 H Pulse Oximetry 94 94 Oxygen Delivery Autopap Oxygen Flow Rate 3 Fraction of Inspired Oxygen 02/14/25 04:00 02/14/25 06:00 02/14/25 08:00 Temperature 36.2 C L Pulse Rate 59 L 55 L 68 Respiratory Rate 16 Blood Pressure 146/72 H Pulse Oximetry 94 Oxygen Delivery Oxygen Flow Rate Fraction of Inspired Oxygen 02/14/25 08:20 02/14/25 08:20 02/14/25 08:31 Temperature Pulse Rate 65 66 Respiratory Rate 18 18 Blood Pressure Pulse Oximetry 96 Oxygen Delivery Nasal Cannula Oxygen Flow Rate 2 Fraction of Inspired Oxygen 02/14/25 09:28 02/14/25 10:13 Temperature Pulse Rate 70 Respiratory Rate Blood Pressure Pulse Oximetry Oxygen Delivery High Flow Nasal Cannula Oxygen Flow Rate 2 Fraction of Inspired Oxygen Intake/Output Intake/Output: Intake & Output 02/11/25 02/12/25 02/13/25 02/14/25 23:59 23:59 23:59 23:59 Intake Total 300 1960 720 Output Total 4770 3000 2210 400 [facility] -4470 -1040 -1490 -400 Meds/Results Medications: Active Medications Generic Name Dose Route Start Last Admin Trade Name Freq PRN Reason Stop Dose Admin Acetaminophen 650 mg 02/10/25 19:39 Acetaminophen 325 Mg Tablet PO Q6H PRN Mild Pain (1-3) or Fever Albuterol 2.5 mg 02/12/25 12:50 02/12/25 16:50 Albuterol Sulfate Neb 2.5 Mg/3 Ml Inh INHALATION 2.5 mg Q6-8H PRN Administration Shortness Of Breath Or Wheezing Albuterol 1 - 2 puff 02/12/25 12:50 Albuterol Sulfate (*Sp) Aerosol 1 Puff INHALATION Q4-6H PRN Shortness Of Breath Or Wheezing Albuterol/Ipratropium 3 ml 02/10/25 20:00 02/14/25 08:19 Ipratropium 0.5 Mg/Albuterol Sulfate 2.5 Mg (Base) Ampul.Neb 3 Ml INHALATION 3 ml Q6HRT VIN Administration Amlodipine Besylate 10 mg 02/13/25 09:00 02/14/25 09:24 Amlodipine Besylate 10 Mg Tablet PO 10 mg DAILY VIN Administration Aspirin 81 mg 02/13/25 09:00 02/14/25 09:24 Aspirin 81 Mg Enteric Tablet PO 81 mg QAM VIN Administration Benzonatate 100 mg 02/10/25 19:39 Benzonatate 100 Mg Capsule PO TID PRN Cough Diclofenac Sodium 1 applic 02/12/25 12:50 Diclofenac Sodium 1% 100 Gm Gel (*Bkc) TOPICAL QID PRN Pain Docusate Sodium 100 mg 02/12/25 17:00 02/14/25 09:24 Docusate Sodium 100 Mg Capsule PO 100 mg BID VIN Administration Donepezil HCl 5 mg 02/12/25 21:00 02/13/25 20:20 Donepezil Hcl 5 Mg Tablet PO 5 mg QHS VIN Administration Enoxaparin Sodium 40 mg 02/11/25 09:00 02/14/25 09:24 Enoxaparin 40 Mg/0.4 Ml Syringe SUB-Q 40 mg DAILY VIN Administration Fish Oil 1 gm 02/13/25 09:00 02/14/25 09:24 [place] 3 Polyunsat Fatty Acids 1 Gm Cap PO 1 gm QAM VIN Administration Fluoxetine HCl 20 mg 02/12/25 13:00 02/14/25 09:25 Fluoxetine Hcl 20 Mg Capsule PO 20 mg TID VIN Administration Folic Acid 1 mg 02/13/25 09:00 02/14/25 09:25 Folic Acid 1 Mg Tablet PO 1 mg DAILY VIN Administration Furosemide 40 mg 02/10/25 19:40 02/13/25 08:43 Furosemide Inj 40 Mg/4 Ml Vial IV PUSH 40 mg DAILY VIN Administration Furosemide 20 mg 02/12/25 12:50 Furosemide 20 Mg Tablet PO QPM PRN weight gain Gabapentin 300 mg 02/12/25 14:00 02/14/25 05:43 Gabapentin 300 Mg Capsule PO 300 mg Q8HR VIN Administration Guaifenesin 1,200 mg 02/13/25 21:00 02/14/25 09:25 Guaifenesin 12 Hr 600 Mg Tabcr PO 1,200 mg Q12HR VIN Administration Ceftriaxone Sodium 1 gm/ 50 mls @ 100 mls/hr 02/11/25 17:00 02/13/25 17:49 Sodium Chloride IVPB 100 mls/hr Q24H VIN Administration Azithromycin 500 mg/ Sodium 250 mls @ 250 mls/hr 02/11/25 20:00 02/13/25 20:19 Chloride IVPB 02/14/25 20:59 250 mls/hr Q24H VIN Administration Levothyroxine Sodium 150 mcg 02/13/25 06:30 02/14/25 05:43 Levothyroxine Sodium 150 Mcg Tablet PO 150 mcg DAILY@0630 VIN Administration Lidocaine 1 patch 02/13/25 09:00 02/14/25 09:22 Lidocaine 5% Patch TOPICAL 1 patch DAILY VIN Administration Loratadine 10 mg 02/12/25 12:50 Loratadine 10 Mg Tablet PO DAILY PRN allergy symptoms Miscellaneous Information 1 each 02/12/25 00:01 02/14/25 01:47 Albuterol Updraft And Inhaler Have Duplicate Prn Indications Please Clarify XX 03/14/25 00:00 Not Given CLARIFY VIN Miscellaneous Information 1 each 02/12/25 00:01 02/14/25 01:47 Nonformulary Drug (Vibegron [Gemtesa] 75 Mg Tablet)Can Patient Use From Home? XX 03/14/25 00:00 Not Given CLARIFY VIN Montelukast Sodium 10 mg 02/13/25 09:00 02/14/25 09:25 Montelukast Sodium 10 Mg Tablet PO 10 mg DAILY VIN Administration Nebivolol 10 mg 02/13/25 09:00 02/14/25 09:28 Nebivolol Hcl 5 Mg Tablet PO 10 mg DAILY VIN Administration Non-Formulary Medication 75 mg 02/13/25 09:00 Vibegron [Gemtesa] PO 03/15/25 08:59 DAILY VIN Pantoprazole Sodium 40 mg 02/12/25 21:00 02/14/25 09:26 Pantoprazole 40 Mg Tablet PO 40 mg Q12HR VIN Administration Perflutren Lipid Microsphere 0 ml 02/13/25 14:04 Perflutren Lipid Microspheres 1.5 Ml Vial Diluted To 10 Ml Total Volume IV PUSH 02/16/25 14:04 ONCE PRN adequate visualization Protocol Pravastatin Sodium 40 mg 02/13/25 09:00 02/14/25 09:25 Pravastatin Sodium 20 Mg Tablet PO 40 mg DAILY VIN Administration Prednisone 40 mg 02/15/25 08:00 Prednisone 20 Mg Tablet PO DAILY@0800 [facility] Spironolactone 25 mg 02/13/25 09:00 02/14/25 09:25 Spironolactone 25 Mg Tablet PO 25 mg DAILY VIN Administration Telmisartan 40 mg 02/12/25 21:00 02/14/25 09:25 Telmisartan 40 Mg Tablet PO 40 mg Q12HR VIN Administration Vitamin D 50 mcg 02/13/25 09:00 02/14/25 09:25 Cholecalciferol (Vitamin D3) 125 Mcg (5,000 Units) Tablet PO 50 mcg DAILY VIN Administration Radiology Results: ITS Impressions Chest X-Ray 02/10/25 16:03 Impression: CHF. Superimposed probable pneumonia. The findings appear progressed compared to the previous study. Chest CTA 02/13/25 15:24 IMPRESSION: 1. No evidence of pulmonary emboli. No acute abnormalities of thoracic aorta. 2. Emphysematous lungs. Mild groundglass opacity of lung bases due to mild congestive changes. No pleural or pericardial effusion. 3. Severe scoliosis and postsurgical changes with degenerative disc disease of thoracolumbar spine. Venous Doppler Study 02/13/25 17:12 Impression: Negative for DVT. Labs Labs: Laboratory Results - last 24 hr 02/13/25 02/13/25 02/14/25 03:29 14:01 05:39 WBC RBC Hgb Hct MCV MCH MCHC RDW Plt Count MPV Immature Gran % (Auto) Neut % (Auto) Lymph % (Auto) [place] % (Auto) Eos % (Auto) Baso % (Auto) Lymph # (Auto) [place] # (Auto) Eos # (Auto) Baso # (Auto) Abs Immat Gran (auto) Absolute Neuts (auto) Absolute Nucleated RBC Total Counted Neutrophils % (Manual) Band Neutrophils % Lymphocytes % (Manual) Monocytes % (Manual) Nucleated RBC % Abs Neuts (Manual) Abs Lymphs (Manual) Abs Monocytes (Manual) Platelet Estimate Hypochromasia Ovalocytes [place] Cells Acanthocytes (Spur) Schistocytes D-Dimer 0.70 H Sodium 126 L Potassium 3.9 Chloride 89 L Carbon Dioxide 30 Anion Gap 7 BUN 24 H Creatinine 0.86 Estim Creat Clear Calc 49 Estimated GFR > 60 Glucose 146 H Calcium 9.5 Total Bilirubin 0.9 AST 46 H ALT 34 Alkaline Phosphatase 74 Total Creatine Kinase 181 H C-Reactive Protein 1.1 NT-Pro-B Natriuret Pep 41711 H Total Protein 7.2 Albumin 4.1 Procalcitonin 0.1 Rheumatoid Factor < 12.0 Rheumatoid Factor Scrn Rheumatoid Factor Titer Anti-Cycl Citrul Peptide Anti-Proteinase 3 FEIA c/o 1.9 Anti-Myeloperoxidase 02/14/25 02/14/25 05:52 05:53 WBC 7.9 RBC 2.96 L Hgb 9.1 L Hct 27.2 L MCV 91.9 MCH 30.7 MCHC 33.5 RDW 14.1 Plt Count 142 L MPV 11.5 H Immature Gran % (Auto) Not Reportable Neut % (Auto) Not Reportable Lymph % (Auto) Not Reportable [place] % (Auto) Not Reportable Eos % (Auto) Not Reportable Baso % (Auto) Not Reportable Lymph # (Auto) Not Reportable [place] # (Auto) Not Reportable Eos # (Auto) Not Reportable Baso # (Auto) Not Reportable Abs Immat Gran (auto) Not Reportable Absolute Neuts (auto) Not Reportable Absolute Nucleated RBC Not Reportable Total Counted 100 Neutrophils % (Manual) 69 Band Neutrophils % 21 H Lymphocytes % (Manual) 7 L Monocytes % (Manual) 3 Nucleated RBC % Not Reportable Abs Neuts (Manual) 7.11 H Abs Lymphs (Manual) 0.55 L Abs Monocytes (Manual) 0.23 Platelet Estimate Slightly decreased Hypochromasia 1+ Ovalocytes 1+ [place] Cells 1+ Acanthocytes (Spur) 1+ Schistocytes Occasional D-Dimer Sodium Potassium Chloride Carbon Dioxide Anion Gap BUN Creatinine Estim Creat Clear Calc Estimated GFR Glucose Calcium Total Bilirubin AST ALT Alkaline Phosphatase Total Creatine Kinase C-Reactive Protein NT-Pro-B Natriuret Pep Total Protein Albumin Procalcitonin Rheumatoid Factor Rheumatoid Factor Scrn Cancelled Rheumatoid Factor Titer Cancelled Anti-Cycl Citrul Peptide Cancelled Anti-Proteinase 3 FEIA c/o 1.9 Cancelled Anti-Myeloperoxidase Cancelled
[2025-02-14] MEDS: FUROSEMIDE INJ 40 MG/4 ML VIAL IV PUSH (13:13)
--- NOTE | 2025-02-14 15:26 | ECG_ITS ---
Test Date: 2025-02-14 15:37:27 Measurements Intervals [place] Rate: 129 P: 0 IA: 0 QRS: 21 QRSD: 95 T: 29 QT: 353 QTc: 518 Interpretive Statements ATRIAL FIBRILLATION WITH RAPID VENTRICULAR RESPONSE WITH VENTRICULAR COUPLET AND VENTRICULAR PREMATURE COMPLEXES BORDERLINE ST-T WAVE ABNORMALITY- ANTERIOR LEADS BASELINE ARTIFACT- I, II, III, AVR, AVL, AVF ABNORMAL ECG Compared to ECG 02/10/2025 15:27:48 SINUS RHYTHM NO LONGER PRESENT Ventricular premature complex(es) now present Electronically Signed On 02-14-2025 16:24:24 [employer] by Alonzo Sidhu D.O.
[2025-02-14] MEDS: METOPROLOL TARTRATE INJ 5 MG/5 ML VIAL IV PUSH (16:14)
--- NOTE | 2025-02-14 16:37 | PHAR ---
home med verified Vibegron 75mg take 1 tablet dailly
[2025-02-14] MEDS: cefTRIAXone 1 GM in SODIUM CHLORIDE 0.9% IV 50 ML 100 ML IVPB (18:21)
[2025-02-14] MEDS: AZITHROMYCIN IV 500 MG in SODIUM CHLORIDE 0.9% IV 250 ML IVPB (20:12)
[2025-02-14] MEDS: DONEPEZIL HCL 5 MG TABLET PO (21:18)
[2025-02-15] VITALS (21 sets, daily range): BP systolic 106–147; BP diastolic 62–85; PULSE 77–114; RESP 16–20; TEMP 36.7–37.3; O2SAT 86–98
--- NOTE | 2025-02-15 04:44 | PCRCNOTE ---
2335: Patient placed on home unit with 4L bleed in, Overnight Oximetry started, does not want to sleep yet, RT tried to strongly urge her to shut everything down for sleep. ------- Tech reports that patient has been on her tablet texting all night with TV on. 2085: Patient is awake, Tech is at bedside to change soiled clothing and sheets; Overnight study ended, patient continuing on home PAP
[2025-02-15 05:33] LABS: Hematocrit 27.2 % (37.0-47.0); Hemoglobin 9.3 g/dL (12.0-15.0); Mean Corpuscular HGB Conc 34.2 g/dl (32-36); Mean Corpuscular Hemoglobin 31.0 pg (26-34); Mean Corpuscular Volume 90.7 fl (80-100); Platelet Count Result 151 k/mm3 (150-375); Red Blood Count 3.00 M/mm3 (4.2-5.4); White Blood Count 14.1 K/mm3 (4.5-10.0)
[2025-02-15 06:14] LABS: Band Neutrophils Percent 3 % (0-6); Lymphocytes Absolute Manual 3.38 K/mm3 (1.1-4.5); Lymphocytes Percent Manual 24 % (18-44); Monocytes Absolute Manual 1.12 K/mm3 (0.1-0.90); Monocytes Percent Manual 8 % (3-9); Neutrophils Absolute Manual 9.58 K/mm3 (1.3-6.7); Neutrophils Percent Manual 65 % (46-73); Total Cells Counted 100
[2025-02-15 06:15] LABS: Acanthocytes Occasional; Hypochromasia 1+; Schistocytes Occasional
[2025-02-15 06:23] LABS: Alanine Aminotransferase 38 U/L (6-35); Albumin Level 3.8 g/dL (3.5-5.1); Alkaline Phosphatase 66 U/L (38-126); Anion Gap 3 mmol/L (4-12); Aspartate Amino Transferase 46 U/L (14-36); Bilirubin,Total 0.9 mg/dL (0.2-1.3); Blood Urea Nitrogen 29 mg/dL (7-17); Calcium 9.3 mg/dL (8.4-10.2); Carbon Dioxide 33 mmol/L (22-30); Chloride 87 mmol/L (98-107); Estimated CRCL calculation 41 ml/min; Estimated Glomerular Filt Rate 51; Glucose 99 mg/dL (65-110); Potassium 3.1 mmol/L (3.4-5.0); Sodium 123 mmol/L (137-145); Total Protein 6.2 g/dL (6.3-8.2)
[2025-02-15] MEDS: GABAPENTIN 300 MG CAPSULE PO ×2 (06:33→15:19)
[2025-02-15] MEDS: LEVOTHYROXINE SODIUM 150 MCG TABLET PO (06:33)
[2025-02-15] MEDS: IPRATROPIUM 0.5 MG/ALBUTEROL SULFATE 2.5 MG (BASE) AMPUL.NEB 3 ML INHALATION (07:03)
--- NOTE | 2025-02-15 07:40 | PM.CNCAR ---
Assessment and Plan Assessment and plan (1) Atrial fibrillation: Code(s): I48.91 - Unspecified atrial fibrillation Status: Acute Assessment and Plan: Presenting EKG shows sinus rhythm. However, she did go in atrial fibrillation with rapid ventricular response yesterday afternoon. She remains in atrial fibrillation but is currently rate controlled. This is a new diagnosis. I discussed the diagnosis of atrial fibrillation with her including the pathophysiology, management strategies, and complications of source of atrial fibrillation. Since she has not been difficult to rate control. Will continue to pursue a rate control strategy. Continue nebivolol 10 mg daily 5 mg IV Lopressor p.r.n. for sustained tachycardia over 130 beats per minute if SBP greater than 100 mmHg She has CHADS2 Vasc score of at least 3, anticoagulation is indicated. Echocardiogram showed normal LV systolic function. She does have diastolic dysfunction, severe LAE and moderate BILL. No significant valvular abnormalities. Mild pulmonary hypertension. (2) Acute exacerbation of CHF (congestive heart failure): Qualifiers: Heart failure type: diastolic Qualified Code(s): I50.33 - Acute on chronic diastolic (congestive) heart failure Code(s): I50.9 - Heart failure, unspecified Status: Acute Assessment and Plan: Clinically does not appear volume overloaded on exam. RA pressure is normal. Will discontinue IV furosemide. (3) Interstitial lung disease: Code(s): J84.9 - Interstitial pulmonary disease, unspecified Status: Acute Assessment and Plan: Pulmonology is following. (4) Obstructive sleep apnea: Code(s): G47.33 - Obstructive sleep apnea (adult) (pediatric) Status: Acute Assessment and Plan: On CPAP. (5) Hypertension: Qualifiers: Hypertension type: primary hypertension Qualified Code(s): I10 - Essential (primary) hypertension Code(s): I10 - Essential (primary) hypertension Status: Chronic Assessment and Plan: Blood pressure goal. Continue current medical regimen without change. History of Present Illness History of Present Illness Consult date/time: 02/15/25 07:40 Requesting physician: Marco Guzman PA-C Consult reason: atrial fibrillation Reason For Visit: COPD/Pneumonia/Hypoxia Narrative: Marialuisa Darden is an 79 year old female with dementia, chronic respiratory failure, diastolic dysfunction, anemia, ILD, hypertension, and fibromyalgia. She presented to the hospital with a chief complaint of shortness of breath. Cardiology is consulted for atrial fibrillation with rapid ventricular response. Patient denies any history of atrial fibrillation or other arrhythmias. She denies feeling any chest pain or palpitations. She is short of breath related to her asthma exacerbation and interstitial lung disease. She was given 1 dose of IV metoprolol and her rate has been generally well controlled. 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 Dementia History of ARDS Diastolic dysfunction History of nuclear stress test History of abnormal electrocardiogram Genevieve's thyroiditis Rosacea w/ ocular involvement Depression History of rectocele History of migraine headaches Spondylosis of cervical spine Arthralgia H/O antinuclear antibodies intermittent +ABRAM to 1:320 Vascular disorder seronegative collagen disorder History of squamous cell carcinoma History of staph infection Chronic left shoulder pain arthritis; possibly inflammatory Fracture, rib Aftercare following finger joint replacement surgery Thyroiditis Scoliosis History of left heart catheterization Tubal ligation evaluation Enlarged ureter Supplemental oxygen dependent Hypertension Fibromyalgia CHF (congestive heart failure) Surgical History Surgical History History of cataract extraction with lens replacement History of arthroplasty of knee Left History of removal of pigmented skin lesion Nose 2021 History of hysterectomy Total History of ERCP History of fusion of lumbar spine L2-L5 lumbar fusion Titanium History of laminectomy History of total knee replacement History of cholecystectomy 2002 History of tubal ligation History of D&C History of hip surgery right Total knee replacement status Previous back surgery S/P peroneal tendon repair History of surgical removal of ganglion cyst 1960 H/O hernia repair 1947 Family History Family History Unknown No problems noted. Mother Esophageal cancer Other Alcohol abuse Cancer Hypertension Social History Social History Social History: She lives with her and has 3 biologic children. She also has 1 adopted child. 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 She is a former smoker. Code status full code Smoking packs per day: 1 Smoking cigarettes per day: 20.0 Years smoked: 10 Smoking pack-years: 10.00 Smoking status: Former smoker Tobacco type: cigarettes Second hand tobacco smoke exposure: No Smoking end date: 11/23/81 Additional smoking assessment comments: quit 1981 Alcohol intake: current Drinks per week: 1 Alcohol use details: 0-1 per week Substance use: never Substance use type: does not use Other substance usage details: social occassions Lack of Transportation: No Lack of Food: Never True Current Housing: I Have Housing Concerned About Future Housing: No Difficulty Paying Gas/Electric Bills: No Difficulty Paying for Meds: No Currently Unemployed: No Education: Associate Degree Difficulty w/ Childcare or Family Care: No Living arrangements: with family Additional living arrangements comments: [facility]. Occupation/Education: retired Gender identity (if verbalized by the patient): Female Spiritual care concerns: No Agree to blood products: Yes Meds Home Medications and Allergies Home Medications ?Medication ?Instructions ?Recorded ?Confirmed ?Type docusate sodium 100 mg capsule 100 mg PO BID 11/18/21 02/11/25 History diclofenac sodium 1 % topical gel 4 g topical QID PRN Pain 05/13/22 02/11/25 History (Arthritis Pain (diclofenac)) telmisartan 40 mg tablet 40 mg PO BID 05/13/22 02/11/25 History spironolactone 25 mg tablet 25 mg PO DAILY 06/15/22 02/11/25 History albuterol sulfate 2.5 mg/3 mL 2.5 mg inhalation Q6-8H PRN 12/28/22 02/11/25 History (0.083 %) solution for nebulization shortness of breath or wheezing naloxone 4 mg/actuation nasal spray 4 mg intranasal Q2-3M PRN opioid 03/22/23 02/11/25 Rx overdose #2 ea fluticasone fur. 200 mcg-umeclid 1 inh inhalation DAILY #180 ea 12/27/23 02/11/25 Rx 62.5 mcg-vilant 25 mcg inhalat.powder (Trelegy Ellipta) albuterol sulfate 90 mcg/actuation 1 - 2 puff inhalation Q4-6H PRN 02/21/24 02/11/25 Rx aerosol inhaler shortness of breath or wheezing #25.5 grams aspirin 81 mg capsule 81 mg PO DAILY 03/08/24 02/11/25 History cholecalciferol (vitamin D3) 50 2,000 unit PO DAILY 03/08/24 02/11/25 History mcg (2,000 unit) capsule omega 3 350 mg-dha 235 mg-epa 90 1 cap PO DAILY 03/08/24 02/11/25 History mg-fish oil 597 mg capsule,delay rel ([place]-3) vibegron 75 mg tablet (Gemtesa) 75 mg PO DAILY 03/08/24 02/11/25 History CPAP 05/21/24 02/11/25 History Pain Pump 05/21/24 02/11/25 History furosemide 20 mg tablet (Lasix) 20 mg PO QPM PRN weight gain 05/21/24 02/11/25 History guaifenesin 600 mg tablet, 600 mg PO Q12H PRN congestion 05/21/24 02/11/25 History extended release 12 hr (Mucinex) loratadine 10 mg tablet (Claritin) 10 mg PO DAILY PRN allergy symptoms 05/21/24 02/11/25 History oxygen 05/21/24 02/11/25 History lidocaine 5 % topical patch See Rx Instructions .Route 07/23/24 02/11/25 Rx .COMPLEX #90 patches amlodipine 10 mg tablet 10 mg PO DAILY #90 tabs 08/27/24 02/11/25 Rx fluoxetine 20 mg capsule 20 mg PO TID #270 caps 08/27/24 02/11/25 Rx gabapentin 300 mg capsule 300 mg PO TID #270 caps 08/27/24 02/11/25 Rx montelukast 10 mg tablet 10 mg PO DAILY #90 tabs 08/27/24 02/11/25 Rx pantoprazole 40 mg tablet,delayed 40 mg PO BID #180 tabs 08/27/24 02/11/25 Rx release pravastatin 40 mg tablet 40 mg PO DAILY #90 tabs 08/27/24 02/11/25 Rx levothyroxine 150 mcg tablet 150 mcg PO DAILY #90 tabs 08/28/24 02/11/25 Rx (Synthroid) nebivolol 10 mg tablet (Bystolic) 10 mg PO DAILY #90 tabs 08/28/24 02/11/25 Rx folic acid 1 mg tablet 1 mg PO DAILY #90 tabs 09/03/24 02/11/25 Rx nystatin 100,000 unit/gram topical 1 applic topical BID PRN rash #60 11/01/24 02/11/25 Rx powder grams donepezil 5 mg tablet 5 mg PO QHS #90 tabs 02/06/25 02/11/25 Rx Allergies Allergy/AdvReac Type Severity Reaction Status Date / Time clindamycin Allergy Severe Chills Verified 02/11/25 11:46 diazepam Allergy Severe suicidal Verified 02/11/25 11:46 ideation levofloxacin (From Levaquin) Allergy Intermediate Itching Verified 02/11/25 11:46 cat dander Allergy Unknown Sinusitis Verified 02/11/25 11:46 dog dander Allergy Unknown Sinusitis Verified 02/11/25 11:46 feathers Allergy Unknown Sinusitis Verified 02/11/25 11:46 grass pollen Allergy Unknown Sinusitis Verified 02/11/25 11:46 house dust Allergy Unknown Sinusitis Verified 02/11/25 11:46 Rabbit Allergy Unknown Sinusitis Verified 02/11/25 11:46 tree and shrub pollen Allergy Unknown Sinusitis Verified 02/11/25 11:46 adhesive tape Allergy Redness of Verified 02/11/25 11:46 Skin silicone Allergy Unknown Verified 02/11/25 11:46 meperidine (From Demerol) AdvReac Hallucinati Verified 02/11/25 11:46 ng oxycodone (From Percocet) AdvReac Nausea Verified 02/11/25 11:46 propoxyphene AdvReac Nausea and Verified 02/11/25 11:46 Vomiting Vital Signs Vital Signs - 24 hr 02/14/25 08:00 02/14/25 08:00 02/14/25 08:20 Temperature 36.2 C L Pulse Rate 68 57 L Respiratory Rate 16 Blood Pressure 146/72 H Pulse Oximetry 94 96 Oxygen Delivery Nasal Cannula Oxygen Flow Rate 2 02/14/25 08:20 02/14/25 08:31 02/14/25 09:28 Temperature Pulse Rate 65 66 70 Respiratory Rate 18 18 Blood Pressure Pulse Oximetry Oxygen Delivery Oxygen Flow Rate 02/14/25 10:00 02/14/25 10:13 02/14/25 11:24 Temperature Pulse Rate 112 H Respiratory Rate Blood Pressure Pulse Oximetry Oxygen Delivery High Flow Nasal Cannula High Flow Nasal Cannula Oxygen Flow Rate 2 2 02/14/25 12:00 02/14/25 12:00 02/14/25 13:33 Temperature 36.8 C Pulse Rate 111 H 111 H 96 Respiratory Rate 24 H 18 Blood Pressure 120/63 Pulse Oximetry 99 Oxygen Delivery Oxygen Flow Rate 02/14/25 13:41 02/14/25 14:00 02/14/25 16:00 Temperature Pulse Rate 93 98 96 Respiratory Rate 18 Blood Pressure Pulse Oximetry Oxygen Delivery Oxygen Flow Rate 02/14/25 16:00 02/14/25 16:14 02/14/25 18:00 Temperature 36.5 C Pulse Rate 111 H 120 H 87 Respiratory Rate 16 Blood Pressure 107/86 Pulse Oximetry 96 Oxygen Delivery Oxygen Flow Rate 02/14/25 20:00 02/14/25 20:00 02/14/25 20:12 Temperature 36.4 C Pulse Rate 79 91 90 Respiratory Rate 16 16 Blood Pressure 116/77 Pulse Oximetry 99 95 Oxygen Delivery High Flow Nasal Cannula Oxygen Flow Rate 4 02/14/25 20:12 02/14/25 20:20 02/14/25 22:00 Temperature Pulse Rate 90 92 92 Respiratory Rate 16 18 Blood Pressure Pulse Oximetry Oxygen Delivery Oxygen Flow Rate 02/14/25 23:35 02/14/25 23:35 02/15/25 00:00 Temperature 36.9 C Pulse Rate 98 Respiratory Rate 16 Blood Pressure 106/82 Pulse Oximetry 95 94 Oxygen Delivery CPAP CPAP Oxygen Flow Rate 4 02/15/25 00:00 02/15/25 02:00 02/15/25 04:00 Temperature Pulse Rate 114 H 94 93 Respiratory Rate Blood Pressure Pulse Oximetry Oxygen Delivery Oxygen Flow Rate 02/15/25 04:00 02/15/25 06:00 02/15/25 07:04 Temperature 37.3 C Pulse Rate 77 98 Respiratory Rate 16 Blood Pressure 127/62 Pulse Oximetry 96 92 Oxygen Delivery High Flow Nasal Cannula Oxygen Flow Rate 2 02/15/25 07:04 02/15/25 07:12 Temperature Pulse Rate 102 H 98 Respiratory Rate 20 20 Blood Pressure Pulse Oximetry Oxygen Delivery Oxygen Flow Rate Exam Const: General: comfortable, no acute distress, alert and awake Orientation/consciousness: patient oriented x3 HENMT: Head: normal to inspection Eyes: General: appearance normal, both eyes and all related structures Pupils: Equal, round and reactive pupils present Neck: Neck: normal visual inspection, supple and no JVD Carotids: normal carotid upstroke Resp: Effort & Inspection: normal respiratory effort Auscultation: crackles and rhonchi Cardio: Rate: regular rate Rhythm: abnormal rhythm irregularly irregular Heart sounds: S1 normal heart sound present, S2 normal heart sound present and no murmurs GI: Auscultation: normal bowel sounds Skin: General skin exam: normal color Neuro: General: patient oriented x3 Cranial nerves: Yes Equal, round and reactive pupils present Extrem: General: normal to inspection Other: No edema Psych: Appearance: grossly normal Mental Status: mental status grossly normal Results Labs and Meds 02/15/25 05:17 02/15/25 05:17 Lab results: Cardiac Enzymes 02/15/25 Range/Units 05:17 AST 46 H (14-36) U/L CBC 02/15/25 Range/Units 05:17 WBC 14.1 H (4.5-10.0) K/mm3 RBC 3.00 L (4.2-5.4) M/mm3 Hgb 9.3 L (12.0-15.0) g/dL Hct 27.2 L (37.0-47.0) % Plt Count 151 (150-375) k/mm3 Lymph # (Auto) Not Reportable Mcduffie # (Auto) Not Reportable Eos # (Auto) Not Reportable Baso # (Auto) Not Reportable Comprehensive Metabolic Panel 02/15/25 Range/Units 05:17 Sodium 123 L (137-145) mmol/L Potassium 3.1 L (3.4-5.0) mmol/L Chloride 87 L (98-107) mmol/L Carbon Dioxide 33 H (22-30) mmol/L BUN 29 H (7-17) mg/dL Creatinine 1.04 H (0.7-1.0) mg/dL Glucose 99 (65-110) mg/dL Calcium 9.3 (8.4-10.2) mg/dL AST 46 H (14-36) U/L ALT 38 H (6-35) U/L Alkaline Phosphatase 66 (38-126) U/L Total Protein 6.2 L (6.3-8.2) g/dL Albumin 3.8 (3.5-5.1) g/dL Intake and Output 02/14/25 02/14/25 02/15/25 15:59 23:59 07:59 Intake Total 600 1240 Output Total 900 300 Balance 600 340 -300 Intake: Oral 600 1240 Output: Catheter Urine 900 300 Urethral Catheter 900 300 Patient Weight 02/15/25 23:59 Weight 93.5 kg
[2025-02-15 08:02] LABS: NT Pro B Type Natriuretic Pept 10000 pg/mL (19.9-100)
--- NOTE | 2025-02-15 08:35 | P.PNIM_ITS ---
Assessment and Plan Assessment and Plan (1) Asthma with exacerbation: Code(s): J45.901 - Unspecified asthma with (acute) exacerbation Status: Acute Assessment and Plan: * Oxygen requirement: 2L NC (at baseline) * Chest XR CHF. Superimposed probable pneumonia. The findings appear progressed compared to the previous study. * ABG * Current treatment: duoneb and steroid q 6 hr * Pulmonology consulted - following * Continue Solu-Medrol 60 mg IV q.6 hours, DuoNebs q.6 hours, Singulair 10 mg q.day * Pending respiratory panel, urine for Legionella/pneumococcal antigen and mycoplasma IgM * Continue Rocephin, montelukast, and guaifenesin. (2) Acute and chronic respiratory failure: Qualifiers: Respiratory failure complication: hypoxia Qualified Code(s): J96.21 - Acute and chronic respiratory failure with hypoxia Code(s): J96.20 - Acute and chronic respiratory failure, unspecified whether with hypoxia or hypercapnia Status: Acute Assessment and Plan: Acute on chronic respiratory failure. At baseline requires 2 L nasal cannula at all times. Now requiring 4 L nasal cannula to maintain O2 sat greater than 92%. Subsequently placed on BiPAP for work of breathing. Initial ABG in the ED showed no significant derangements. Workup/clinical picture concerning for CHF exacerbation, pneumonia, and COPD exacerbation. * Lasix 40 mg daily for CHF exacerbation * broad-spectrum antibiotics and supportive care for pneumonia * started on BiPAP in the ED on 02/10, continued inpatient * schedule DuoNebs and prednisone for COPD exacerbation * continue supplemental oxygen to maintain O2 sat greater than 92%, may wean to baseline O2 requirement as tolerated * Off BIPAP, now back on 2L NC which is her baseline * Pulmonology following * D-dimer 0.7 * Chest CTA negative for evidence of PE * Bilateral lower extremity venous Doppler: Negative for DVT (3) Pneumonia: Qualifiers: Laterality: bilateral Lung location: unspecified part of lung Pneumonia type: due to unspecified organism Qualified Code(s): J18.9 - Pneumonia, unspecified organism Code(s): J18.9 - Pneumonia, unspecified organism Status: Acute Assessment and Plan: * CXR concerning for CHF in superimposed probable pneumonia (Bilateral infiltrates). * reporting productive cough. No nausea, vomiting, diarrhea, fever, chills. No leukocytosis. Did not meet SIRS criteria. * started on ceftriaxone and azithromycin 02/10 * supportive care including Mucinex, Tessalon Perles, Tylenol * viral PCR negative on 02/10 * Continue ABX (4) Acute exacerbation of CHF (congestive heart failure): Qualifiers: Heart failure type: diastolic Qualified Code(s): I50.33 - Acute on chronic diastolic (congestive) heart failure Code(s): I50.9 - Heart failure, unspecified Status: Acute Assessment and Plan: * CXR concerning for moderate pulmonary venous congestion consistent with CHF exacerbation. * History of diastolic dysfunction. * Last echo in 2022 which showed hyperdynamic systolic function with an estimated EF greater than 70%, grade 1 diastolic dysfunction, LA mildly enlarged, no pulmonary hypertension, mild AV sclerosis. * Reports new swelling x1 day prior to arrival. BNP elevated upon admission. * Echocardiogram 02/13/25: EF 55-60%, severe enlargement left atrial chamber, moderate enlargement right atrial chamber, mild pulmonary hypertension, trace AVR/TVR, mild MVR * Lasix 40 mg daily, 1st dose on 02/10 * monitor daily weights and I&Os * Overall -6.1L since admission * monitor renal function (5) Interstitial lung disease: Code(s): J84.9 - Interstitial pulmonary disease, unspecified Status: Acute Assessment and Plan: * For seen on CT scan 10/02/ not 22 * PFTs on not 24 consistent with mild restrictive abnormality with a FEV1 of 1.68 L with significant decrease in FEV 1 with repeat PFTs on 12/08/2021 * Obtain repeat chest CT scan to assess progression of eye LD * Continue Solu-Medrol 60 mg IV q.6 hours * Repeat serologies pending (6) Hypertension: Qualifiers: Hypertension type: primary hypertension Qualified Code(s): I10 - Essential (primary) hypertension Code(s): I10 - Essential (primary) hypertension Status: Chronic Assessment and Plan: * chronic, currently 111/70, stable. * continue home medications * monitor (7) Hypothyroidism: Qualifiers: Hypothyroidism type: acquired Qualified Code(s): E03.9 - Hypothyroidism, unspecified Code(s): E03.9 - Hypothyroidism, unspecified Status: Chronic Assessment and Plan: * Stable * TSH 0.713 in October of 2024 * continue Synthroid (8) NBA on CPAP: Code(s): G47.33 - Obstructive sleep apnea (adult) (pediatric); Z99.89 - Dependence on other enabling machines and devices Status: Chronic Assessment and Plan: * continue home CPAP Plan Diet: heart healthy GI Prophylaxis: n/a DVT Prophylaxis: Lovenox SQ IV fluids: none, diuresing Lines/Tubes: pIV Code Status: full code Subjective Date/time seen: 02/15/25 08:35 Interval history: 79 y/o F with PMH of dementia, chronic respiratory failure, diastolic dysfunc tion, anemia, COPD, hypertension, fibromyalgia among other chronic medical conditions presents here with shortness of breath. 02/15/2025 Patient sitting comfortably at bedside during of examination. She states that she feels better than yesterday, although she is a poor historian. She is remaining in the upper 90%s on 2L NC. Plan to continue Rocephin, montelukast, and guaifenesin. Review of Systems Review of Systems: All systems reviewed & are unremarkable except as noted in HPI and below Exam Const: General: comfortable and no acute distress Other: , female elderly, nontoxic appearance HENMT: Face/Nose/Sinus: Normal nares present Mouth: Yes moist mucous membranes Eyes: General: appearance normal, both eyes and all related structures Sclera: sclerae normal Pupils: Equal, round and reactive pupils present EOM: EOMs intact bilaterally Resp: Other: mild tachypnea without accessory muscle use. Tolerating BiPAP well. Expiratory wheezing bilaterally. Faint bibasilar crackles. Cardio: Rate: regular rate Rhythm: regular rhythm Other: S1-S2 present without murmur, rub, ectopy GI: Other: Abdomen soft, nondistended, nontender. Normoactive bowel sounds in all quadrants. Skin: General skin exam: normal color and no rashes or lesions noted Other: Ecchymosis to the left forearm in no particular pattern. Neuro: Cranial nerves: Yes Equal, round and reactive pupils present Speech: normal speech Motor exam (neuro): 5/5 motor strength present throughout Sensory Exam: normal sensation Other: Alert and orientated times 2-3. Extrem: Other: Trace to 1+ pitting edema, symmetric Psych: Mental Status: mental status grossly normal Affect: normal affect Other: fair insight and judgment, pleasant. No current hallucinations. Objective Data Vital Signs Vital Signs: Vital Signs - 24 hr 02/14/25 09:28 02/14/25 10:00 02/14/25 10:13 Temperature Pulse Rate 70 112 H Respiratory Rate Blood Pressure Pulse Oximetry Oxygen Delivery High Flow Nasal Cannula Oxygen Flow Rate 2 02/14/25 11:24 02/14/25 12:00 02/14/25 12:00 Temperature 98.3 F Pulse Rate 111 H 111 H Respiratory Rate 24 H Blood Pressure 120/63 Pulse Oximetry 99 Oxygen Delivery High Flow Nasal Cannula Oxygen Flow Rate 2 02/14/25 13:33 02/14/25 13:41 02/14/25 14:00 Temperature Pulse Rate 96 93 98 Respiratory Rate 18 18 Blood Pressure Pulse Oximetry Oxygen Delivery Oxygen Flow Rate 02/14/25 16:00 02/14/25 16:00 02/14/25 16:14 Temperature 97.7 F Pulse Rate 96 111 H 120 H Respiratory Rate 16 Blood Pressure 107/86 Pulse Oximetry 96 Oxygen Delivery Oxygen Flow Rate 02/14/25 18:00 02/14/25 20:00 02/14/25 20:00 Temperature 97.6 F Pulse Rate 87 79 91 Respiratory Rate 16 Blood Pressure 116/77 Pulse Oximetry 99 Oxygen Delivery Oxygen Flow Rate 02/14/25 20:12 02/14/25 20:12 02/14/25 20:20 Temperature Pulse Rate 90 90 92 Respiratory Rate 16 16 18 Blood Pressure Pulse Oximetry 95 Oxygen Delivery High Flow Nasal Cannula Oxygen Flow Rate 4 02/14/25 22:00 02/14/25 23:35 02/14/25 23:35 Temperature Pulse Rate 92 Respiratory Rate Blood Pressure Pulse Oximetry 95 Oxygen Delivery CPAP CPAP Oxygen Flow Rate 4 02/15/25 00:00 02/15/25 00:00 02/15/25 02:00 Temperature 98.5 F Pulse Rate 98 114 H 94 Respiratory Rate 16 Blood Pressure 106/82 Pulse Oximetry 94 Oxygen Delivery Oxygen Flow Rate 02/15/25 04:00 02/15/25 04:00 02/15/25 06:00 Temperature 99.1 F Pulse Rate 93 77 98 Respiratory Rate 16 Blood Pressure 127/62 Pulse Oximetry 96 Oxygen Delivery Oxygen Flow Rate 02/15/25 07:04 02/15/25 07:04 02/15/25 07:12 Temperature Pulse Rate 102 H 98 Respiratory Rate 20 20 Blood Pressure Pulse Oximetry 92 Oxygen Delivery High Flow Nasal Cannula Oxygen Flow Rate 2 02/15/25 08:00 Temperature 98.4 F Pulse Rate 103 H Respiratory Rate 20 Blood Pressure 129/79 Pulse Oximetry 96 Oxygen Delivery Oxygen Flow Rate Intake/Output Intake/Output: Intake & Output 02/12/25 02/13/25 02/14/25 02/15/25 23:59 23:59 23:59 23:59 Intake Total 1960 1020 1840 Output Total 3000 2210 1300 300 Balance -1040 -1190 540 -300 Meds/Results Medications: Active Medications Generic Name Dose Route Start Last Admin Trade Name Freq PRN Reason Stop Dose Admin Acetaminophen 650 mg 02/10/25 19:39 Acetaminophen 325 Mg Tablet PO Q6H PRN Mild Pain (1-3) or Fever Albuterol 2.5 mg 02/12/25 12:50 02/12/25 16:50 Albuterol Sulfate Neb 2.5 Mg/3 Ml Inh INHALATION 2.5 mg Q6-8H PRN Administration Shortness Of Breath Or Wheezing Albuterol 1 - 2 puff 02/12/25 12:50 Albuterol Sulfate (*Sp) Aerosol 1 Puff INHALATION Q4-6H PRN Shortness Of Breath Or Wheezing Albuterol/Ipratropium 3 ml 02/10/25 20:00 02/15/25 07:03 Ipratropium 0.5 Mg/Albuterol Sulfate 2.5 Mg (Base) Ampul.Neb 3 Ml INHALATION 3 ml Q6HRT VIN Administration Amlodipine Besylate 10 mg 02/13/25 09:00 02/14/25 09:24 Amlodipine Besylate 10 Mg Tablet PO 10 mg DAILY VIN Administration Aspirin 81 mg 02/13/25 09:00 02/14/25 09:24 Aspirin 81 Mg Enteric Tablet PO 81 mg QAM VIN Administration Benzonatate 100 mg 02/10/25 19:39 Benzonatate 100 Mg Capsule PO TID PRN Cough Diclofenac Sodium 1 applic 02/12/25 12:50 Diclofenac Sodium 1% 100 Gm Gel (*Bkc) TOPICAL QID PRN Pain Docusate Sodium 100 mg 02/12/25 17:00 02/14/25 18:21 Docusate Sodium 100 Mg Capsule PO 100 mg BID VIN Administration Donepezil HCl 5 mg 02/12/25 21:00 02/14/25 21:18 Donepezil Hcl 5 Mg Tablet PO 5 mg QHS VIN Administration Enoxaparin Sodium 40 mg 02/11/25 09:00 02/14/25 09:24 Enoxaparin 40 Mg/0.4 Ml Syringe SUB-Q 40 mg DAILY VIN Administration Fish Oil 1 gm 02/13/25 09:00 02/14/25 09:24 [place] 3 Polyunsat Fatty Acids 1 Gm Cap PO 1 gm QAM VIN Administration Fluoxetine HCl 20 mg 02/12/25 13:00 02/14/25 18:21 Fluoxetine Hcl 20 Mg Capsule PO 20 mg TID VIN Administration Folic Acid 1 mg 02/13/25 09:00 02/14/25 09:25 Folic Acid 1 Mg Tablet PO 1 mg DAILY VIN Administration Furosemide 40 mg 02/10/25 19:40 02/14/25 13:13 Furosemide Inj 40 Mg/4 Ml Vial IV PUSH 40 mg DAILY VIN Administration Furosemide 20 mg 02/12/25 12:50 Furosemide 20 Mg Tablet PO QPM PRN weight gain Gabapentin 300 mg 02/12/25 14:00 02/15/25 06:33 Gabapentin 300 Mg Capsule PO 300 mg Q8HR VIN Administration Guaifenesin 1,200 mg 02/13/25 21:00 02/14/25 21:18 Guaifenesin 12 Hr 600 Mg Tabcr PO 1,200 mg Q12HR VIN Administration Ceftriaxone Sodium 1 gm/ 50 mls @ 100 mls/hr 02/11/25 17:00 02/14/25 18:21 Sodium Chloride IVPB 100 mls/hr Q24H VIN Administration Levothyroxine Sodium 150 mcg 02/13/25 06:30 02/15/25 06:33 Levothyroxine Sodium 150 Mcg Tablet PO 150 mcg DAILY@0630 VIN Administration Lidocaine 1 patch 02/13/25 09:00 02/14/25 09:22 Lidocaine 5% Patch TOPICAL 1 patch DAILY VIN Administration Loratadine 10 mg 02/12/25 12:50 Loratadine 10 Mg Tablet PO DAILY PRN allergy symptoms Montelukast Sodium 10 mg 02/13/25 09:00 02/14/25 09:25 Montelukast Sodium 10 Mg Tablet PO 10 mg DAILY VIN Administration Nebivolol 10 mg 02/13/25 09:00 02/14/25 09:28 Nebivolol Hcl 5 Mg Tablet PO 10 mg DAILY VIN Administration Home Med ( 1 tab 02/14/25 17:00 02/14/25 18:21 Vibegron 75 Tab) PO 03/16/25 16:59 1 tab DAILY VIN Administration Pantoprazole Sodium 40 mg 02/12/25 21:00 02/14/25 21:18 Pantoprazole 40 Mg Tablet PO 40 mg Q12HR VIN Administration Perflutren Lipid Microsphere 0 ml 02/13/25 14:04 Perflutren Lipid Microspheres 1.5 Ml Vial Diluted To 10 Ml Total Volume IV PUSH 02/16/25 14:04 ONCE PRN adequate visualization Protocol Pravastatin Sodium 40 mg 02/13/25 09:00 02/14/25 09:25 Pravastatin Sodium 20 Mg Tablet PO 40 mg DAILY VIN Administration Prednisone 40 mg 02/15/25 08:00 Prednisone 20 Mg Tablet PO DAILY@0800 [facility] Spironolactone 25 mg 02/13/25 09:00 02/14/25 09:25 Spironolactone 25 Mg Tablet PO 25 mg DAILY VIN Administration Telmisartan 40 mg 02/12/25 21:00 02/14/25 21:18 Telmisartan 40 Mg Tablet PO 40 mg Q12HR VIN Administration Vitamin D 50 mcg 02/13/25 09:00 02/14/25 09:25 Cholecalciferol (Vitamin D3) 125 Mcg (5,000 Units) Tablet PO 50 mcg DAILY VIN Administration Radiology Results: ITS Impressions Chest X-Ray 02/10/25 16:03 Impression: CHF. Superimposed probable pneumonia. The findings appear progressed compared to the previous study. Chest CTA 02/13/25 15:24 IMPRESSION: 1. No evidence of pulmonary emboli. No acute abnormalities of thoracic aorta. 2. Emphysematous lungs. Mild groundglass opacity of lung bases due to mild congestive changes. No pleural or pericardial effusion. 3. Severe scoliosis and postsurgical changes with degenerative disc disease of thoracolumbar spine. Venous Doppler Study 02/13/25 17:12 Impression: Negative for DVT. Labs Labs: Laboratory Results - last 24 hr 02/13/25 02/14/25 02/15/25 13:17 05:52 05:17 WBC 14.1 H RBC 3.00 L Hgb 9.3 L Hct 27.2 L MCV 90.7 MCH 31.0 MCHC 34.2 RDW 14.0 Plt Count 151 MPV 11.1 H Immature Gran % (Auto) Not Reportable Neut % (Auto) Not Reportable Lymph % (Auto) Not Reportable [place] % (Auto) Not Reportable Eos % (Auto) Not Reportable Baso % (Auto) Not Reportable Lymph # (Auto) Not Reportable [place] # (Auto) Not Reportable Eos # (Auto) Not Reportable Baso # (Auto) Not Reportable Abs Immat Gran (auto) Not Reportable Absolute Neuts (auto) Not Reportable Absolute Nucleated RBC Not Reportable Total Counted 100 Neutrophils % (Manual) 65 Band Neutrophils % 3 Lymphocytes % (Manual) 24 Monocytes % (Manual) 8 Nucleated RBC % Not Reportable Abs Neuts (Manual) 9.58 H Abs Lymphs (Manual) 3.38 Abs Monocytes (Manual) 1.12 H Atypical Lymphocytes Present Platelet Estimate Adequate Hypochromasia 1+ Acanthocytes (Spur) Occasional Schistocytes Occasional Sodium 123 L Potassium 3.1 L Chloride 87 L Carbon Dioxide 33 H Anion Gap 3 L BUN 29 H Creatinine 1.04 H Estim Creat Clear Calc 41 Estimated GFR 51 L Glucose 99 Calcium 9.3 Total Bilirubin 0.9 AST 46 H ALT 38 H Alkaline Phosphatase 66 NT-Pro-B Natriuret Pep 28005 H Total Protein 6.2 L Albumin 3.8 [id number] 158 Chlamy pneumoniae PCR Not detected Adenovirus (PCR) Not detected B. pertussis DNA (PCR) Not detected B.parapertussis DNA PCR Not detected Coronavirus OC43 (PCR) Not detected Coronavirus HKU1 (PCR) Not detected Coronavirus 229E (PCR) Not detected Coronavirus NL63 (PCR) Not detected Human Metapneumovir PCR Not detected Influenza A (H1) PCR Not detected Influ A (H1/09) PCR Not detected Influenza A (H3) PCR Not detected Influenza Type A (PCR) Not detected Influenza Type B (PCR) Not detected M. pneumoniae (PCR) Not detected Parainfluenza 1 (PCR) Not detected Parainfluenza 2 (PCR) Not detected Parainfluenza 3 (PCR) Not detected Parainfluenza 4 (PCR) Not detected RSV (PCR) Not detected Entero/Rhino (PCR) Not detected SARS-CoV-2 (PCR) Not detected Quality VTE Prophylaxis VTE prophylaxis: pharmacologic ordered
--- NOTE | 2025-02-15 09:50 | P.PNPL_ITS ---
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 is moderately enlarged. Right Atria Right atrial chamber dimension is normal. * 02/15/22 - Split PSG - Mild sleep apnea with AHI 8.1 and desaturation to 78%. CPAP 8cmH2O EPR 1 and 2L/min supplemental O2 was recommended. * 12/08/21 - PFT - Spirometry is normal without evidence of obstructive abnormality. * 12/08/21 - 6mw on home requirement 2L/min - The patient's resting 2 L nasal canula oxygen saturation measured by pulse oximetry was 98% and heart rate was 66 bpm. Patient ambulated for 61 meters and oxygen saturation remained 93 to 98%. Heart rate at the end of the study was 85 bpm. Of note, during the recovery phase the patient desaturated to a abdelrahman of 85% at 6 minutes and 32 seconds. Patient saturations increased and were 91% at 7 minutes and 8 seconds. * 12/08/21 - Echo - LV systolic function normal, EF 55-60%. Grade I diastolic dysfunction. Moderate LA enlargement. Trace mitral valve regurgitation. * 10/02/21 - EXAMINATION: CT chest high resolution wo co DATE: 10/02/2021 12:18 INDICATION: Interstitial lung disease TECHNIQUE: Computed tomography (CT) of the chest was performed without intravenous contrast. The dose-length product was 517.08 mGy-cm. Automated exposure control and iterative reconstruction technique were employed. COMPARISON: Chest x-ray dated 08/18/2021 FINDINGS: There is mild mediastinal lymphadenopathy. AP window lymph node measuring 1 cm short axis. There is mild atherosclerosis of the aorta and coronary arteries. Borderline heart size. No significant pleural or pericardial effusion. Small hiatal hernia. Status post cholecystectomy with pneumobilia. There is a combination of peripheral interstitial lung disease with interlobular septal thickening and groundglass opacities. There is mild lower lobe bronchiectasis bilaterally. No pneumothorax. No endobronchial lesions. Mild emphysema. There is severe thoracic spondylosis with S-shaped scoliosis. No acute osseous abnormality. There are a few small nodules in both lungs measuring 2 mm or less, likely benign. IMPRESSION: 1. Coarse interstitial lung disease, likely chronic, in a pattern consistent with usual interstitial pneumonia (UIP). 2: Mild emphysema. 3: Mild mediastinal lymphadenopathy, likely reactive. Review of Systems Constitutional: Constitutional: Reports no additional constitutional complaints Eyes: Eyes: Reports no additional eye complaints ENT: Reports system reviewed and no additional complaints, except as documented Cardiovascular: Cardiovascular: Reports no additional cardiovascular complaints Respiratory: Respiratory: Reports no additional respiratory complaints Gastrointestinal: Gastrointestinal: Reports no additional gastrointestinal complaints Musculoskeletal: Musculoskeletal: Reports no additional musculoskeletal complaints Neurologic: Reports system reviewed and no additional complaints, except as documented Psychiatric: Psychiatric: Reports no additional psychiatric complaints Endocrine: Endocrine: Reports no additional endocrine complaints Hematologic/Lymphatic: Hematologic/Lymphatic: Reports no additional hematologic/lymphatic complaints Allergic/Immunologic: Allergic/Immunologic: Reports no additional allergic/immunologic complaints Exam Const: General: cooperative, healthy appearing and comfortable Orientation/consciousness: oriented to person, oriented to place and oriented to time HENMT: Head: normal to inspection Ears: hearing grossly normal bilaterally Eyes: General: appearance normal, both eyes and all related structures Neck: Neck: normal visual inspection Chest: Chest palpation & inspection: normal inspection of the chest Resp: Effort & Inspection: normal respiratory effort and able to speak in complete sentences Auscultation: crackles, no rales, no rhonchi, no wheezes and lung sounds not diminished Other: Bibasilar dry inspiratory crackles left greater than right. No wheezing. Cardio: Jugular venous distension: no JVD GI: Inspection: normal to inspection Skin: General skin exam: normal color Neuro: General: oriented to person, oriented to place and oriented to time Extrem: General: normal to inspection Other: Trace edema, this has improved per the . Psych: Appearance: grossly normal Objective Data Vital Signs Vital Signs: Vital Signs - 24 hr 02/14/25 10:00 02/14/25 10:13 02/14/25 11:24 Temperature Pulse Rate 112 H Respiratory Rate Blood Pressure Pulse Oximetry Oxygen Delivery High Flow Nasal Cannula High Flow Nasal Cannula Oxygen Flow Rate 2 2 02/14/25 12:00 02/14/25 12:00 02/14/25 13:33 Temperature 36.8 C Pulse Rate 111 H 111 H 96 Respiratory Rate 24 H 18 Blood Pressure 120/63 Pulse Oximetry 99 Oxygen Delivery Oxygen Flow Rate 02/14/25 13:41 02/14/25 14:00 02/14/25 16:00 Temperature Pulse Rate 93 98 96 Respiratory Rate 18 Blood Pressure Pulse Oximetry Oxygen Delivery Oxygen Flow Rate 02/14/25 16:00 02/14/25 16:14 02/14/25 18:00 Temperature 36.5 C Pulse Rate 111 H 120 H 87 Respiratory Rate 16 Blood Pressure 107/86 Pulse Oximetry 96 Oxygen Delivery Oxygen Flow Rate 02/14/25 20:00 02/14/25 20:00 02/14/25 20:12 Temperature 36.4 C Pulse Rate 79 91 90 Respiratory Rate 16 16 Blood Pressure 116/77 Pulse Oximetry 99 95 Oxygen Delivery High Flow Nasal Cannula Oxygen Flow Rate 4 02/14/25 20:12 02/14/25 20:20 02/14/25 22:00 Temperature Pulse Rate 90 92 92 Respiratory Rate 16 18 Blood Pressure Pulse Oximetry Oxygen Delivery Oxygen Flow Rate 02/14/25 23:35 02/14/25 23:35 02/15/25 00:00 Temperature 36.9 C Pulse Rate 98 Respiratory Rate 16 Blood Pressure 106/82 Pulse Oximetry 95 94 Oxygen Delivery CPAP CPAP Oxygen Flow Rate 4 02/15/25 00:00 02/15/25 02:00 02/15/25 04:00 Temperature Pulse Rate 114 H 94 93 Respiratory Rate Blood Pressure Pulse Oximetry Oxygen Delivery Oxygen Flow Rate 02/15/25 04:00 02/15/25 06:00 02/15/25 07:04 Temperature 37.3 C Pulse Rate 77 98 Respiratory Rate 16 Blood Pressure 127/62 Pulse Oximetry 96 92 Oxygen Delivery High Flow Nasal Cannula Oxygen Flow Rate 2 02/15/25 07:04 02/15/25 07:12 02/15/25 08:00 Temperature 36.9 C Pulse Rate 102 H 98 103 H Respiratory Rate 20 20 20 Blood Pressure 129/79 Pulse Oximetry 96 Oxygen Delivery Oxygen Flow Rate Intake/Output Intake/Output: Intake & Output 02/12/25 02/13/25 02/14/25 02/15/25 23:59 23:59 23:59 23:59 Intake Total 1960 1020 1840 Output Total 3000 2210 1300 300 Balance -1040 -1190 540 -300 Meds/Results Medications: Active Medications Generic Name Dose Route Start Last Admin Trade Name Freq PRN Reason Stop Dose Admin Acetaminophen 650 mg 02/10/25 19:39 Acetaminophen 325 Mg Tablet PO Q6H PRN Mild Pain (1-3) or Fever Albuterol 2.5 mg 02/12/25 12:50 02/12/25 16:50 Albuterol Sulfate Neb 2.5 Mg/3 Ml Inh INHALATION 2.5 mg Q6-8H PRN Administration Shortness Of Breath Or Wheezing Albuterol 1 - 2 puff 02/12/25 12:50 Albuterol Sulfate (*Sp) Aerosol 1 Puff INHALATION Q4-6H PRN Shortness Of Breath Or Wheezing Amlodipine Besylate 10 mg 02/13/25 09:00 02/14/25 09:24 Amlodipine Besylate 10 Mg Tablet PO 10 mg DAILY VIN Administration Aspirin 81 mg 02/13/25 09:00 02/14/25 09:24 Aspirin 81 Mg Enteric Tablet PO 81 mg QAM VIN Administration Benzonatate 100 mg 02/10/25 19:39 Benzonatate 100 Mg Capsule PO TID PRN Cough Diclofenac Sodium 1 applic 02/12/25 12:50 Diclofenac Sodium 1% 100 Gm Gel (*Bkc) TOPICAL QID PRN Pain Docusate Sodium 100 mg 02/12/25 17:00 02/14/25 18:21 Docusate Sodium 100 Mg Capsule PO 100 mg BID VIN Administration Donepezil HCl 5 mg 02/12/25 21:00 02/14/25 21:18 Donepezil Hcl 5 Mg Tablet PO 5 mg QHS VIN Administration Enoxaparin Sodium 40 mg 02/11/25 09:00 02/14/25 09:24 Enoxaparin 40 Mg/0.4 Ml Syringe SUB-Q 40 mg DAILY VIN Administration Fish Oil 1 gm 02/13/25 09:00 02/14/25 09:24 [place] 3 Polyunsat Fatty Acids 1 Gm Cap PO 1 gm QAM VIN Administration Fluoxetine HCl 20 mg 02/12/25 13:00 02/14/25 18:21 Fluoxetine Hcl 20 Mg Capsule PO 20 mg TID VIN Administration Fluticasone/Umeclidinium/Vilanterol 1 puff 02/15/25 09:25 Fluticasone/Umeclidin/Vilanter 200-62.5-25 Mcg Ellipta INHALATION DAILYRT VIN Folic Acid 1 mg 02/13/25 09:00 02/14/25 09:25 Folic Acid 1 Mg Tablet PO 1 mg DAILY VIN Administration Furosemide 40 mg 02/10/25 19:40 02/14/25 13:13 Furosemide Inj 40 Mg/4 Ml Vial IV PUSH 40 mg DAILY VIN Administration Furosemide 20 mg 02/12/25 12:50 Furosemide 20 Mg Tablet PO QPM PRN weight gain Gabapentin 300 mg 02/12/25 14:00 02/15/25 06:33 Gabapentin 300 Mg Capsule PO 300 mg Q8HR VIN Administration Guaifenesin 1,200 mg 02/13/25 21:00 02/14/25 21:18 Guaifenesin 12 Hr 600 Mg Tabcr PO 1,200 mg Q12HR VIN Administration Ceftriaxone Sodium 1 gm/ 50 mls @ 100 mls/hr 02/11/25 17:00 02/14/25 18:21 Sodium Chloride IVPB 100 mls/hr Q24H VIN Administration Levothyroxine Sodium 150 mcg 02/13/25 06:30 02/15/25 06:33 Levothyroxine Sodium 150 Mcg Tablet PO 150 mcg DAILY@0630 VIN Administration Lidocaine 1 patch 02/13/25 09:00 02/14/25 09:22 Lidocaine 5% Patch TOPICAL 1 patch DAILY VIN Administration Loratadine 10 mg 02/12/25 12:50 Loratadine 10 Mg Tablet PO DAILY PRN allergy symptoms Montelukast Sodium 10 mg 02/13/25 09:00 02/14/25 09:25 Montelukast Sodium 10 Mg Tablet PO 10 mg DAILY VIN Administration Nebivolol 10 mg 02/13/25 09:00 02/14/25 09:28 Nebivolol Hcl 5 Mg Tablet PO 10 mg DAILY VIN Administration Home Med ( 1 tab 02/14/25 17:00 02/14/25 18:21 Vibegron 75 Tab) PO 03/16/25 16:59 1 tab DAILY VIN Administration Pantoprazole Sodium 40 mg 02/12/25 21:00 02/14/25 21:18 Pantoprazole 40 Mg Tablet PO 40 mg Q12HR VIN Administration Perflutren Lipid Microsphere 0 ml 02/13/25 14:04 Perflutren Lipid Microspheres 1.5 Ml Vial Diluted To 10 Ml Total Volume IV PUSH 02/16/25 14:04 ONCE PRN adequate visualization Protocol Pravastatin Sodium 40 mg 02/13/25 09:00 02/14/25 09:25 Pravastatin Sodium 20 Mg Tablet PO 40 mg DAILY VIN Administration Prednisone 40 mg 02/15/25 08:00 Prednisone 20 Mg Tablet PO DAILY@0800 [facility] Spironolactone 25 mg 02/13/25 09:00 02/14/25 09:25 Spironolactone 25 Mg Tablet PO 25 mg DAILY VIN Administration Telmisartan 40 mg 02/12/25 21:00 02/14/25 21:18 Telmisartan 40 Mg Tablet PO 40 mg Q12HR VIN Administration Vitamin D 50 mcg 02/13/25 09:00 02/14/25 09:25 Cholecalciferol (Vitamin D3) 125 Mcg (5,000 Units) Tablet PO 50 mcg DAILY VIN Administration Radiology Results: ITS Impressions Chest X-Ray 02/10/25 16:03 Impression: CHF. Superimposed probable pneumonia. The findings appear progressed compared to the previous study. Chest CTA 02/13/25 15:24 IMPRESSION: 1. No evidence of pulmonary emboli. No acute abnormalities of thoracic aorta. 2. Emphysematous lungs. Mild groundglass opacity of lung bases due to mild congestive changes. No pleural or pericardial effusion. 3. Severe scoliosis and postsurgical changes with degenerative disc disease of thoracolumbar spine. Venous Doppler Study 02/13/25 17:12 Impression: Negative for DVT. Labs Labs: Laboratory Results - last 24 hr 02/13/25 02/14/25 02/15/25 13:17 05:52 05:17 WBC 14.1 H RBC 3.00 L Hgb 9.3 L Hct 27.2 L MCV 90.7 MCH 31.0 MCHC 34.2 RDW 14.0 Plt Count 151 MPV 11.1 H Immature Gran % (Auto) Not Reportable Neut % (Auto) Not Reportable Lymph % (Auto) Not Reportable Scurry % (Auto) Not Reportable Eos % (Auto) Not Reportable Baso % (Auto) Not Reportable Lymph # (Auto) Not Reportable [place]urry # (Auto) Not Reportable Eos # (Auto) Not Reportable Baso # (Auto) Not Reportable Abs Immat Gran (auto) Not Reportable Absolute Neuts (auto) Not Reportable Absolute Nucleated RBC Not Reportable Total Counted 100 Neutrophils % (Manual) 65 Band Neutrophils % 3 Lymphocytes % (Manual) 24 Monocytes % (Manual) 8 Nucleated RBC % Not Reportable Abs Neuts (Manual) 9.58 H Abs Lymphs (Manual) 3.38 Abs Monocytes (Manual) 1.12 H Atypical Lymphocytes Present Platelet Estimate Adequate Hypochromasia 1+ Acanthocytes (Spur) Occasional Schistocytes Occasional Sodium 123 L Potassium 3.1 L Chloride 87 L Carbon Dioxide 33 H Anion Gap 3 L BUN 29 H Creatinine 1.04 H Estim Creat Clear Calc 41 Estimated GFR 51 L Glucose 99 Calcium 9.3 Total Bilirubin 0.9 AST 46 H ALT 38 H Alkaline Phosphatase 66 NT-Pro-B Natriuret Pep 41391 H Total Protein 6.2 L Albumin 3.8 Nycuf-[id number] 158 Chlamy pneumoniae PCR Not detected Adenovirus (PCR) Not detected B. pertussis DNA (PCR) Not detected B.parapertussis DNA PCR Not detected Coronavirus OC43 (PCR) Not detected Coronavirus HKU1 (PCR) Not detected Coronavirus 229E (PCR) Not detected Coronavirus NL63 (PCR) Not detected Human Metapneumovir PCR Not detected Influenza A (H1) PCR Not detected Influ A (H1/09) PCR Not detected Influenza A (H3) PCR Not detected Influenza Type A (PCR) Not detected Influenza Type B (PCR) Not detected M. pneumoniae (PCR) Not detected Parainfluenza 1 (PCR) Not detected Parainfluenza 2 (PCR) Not detected Parainfluenza 3 (PCR) Not detected Parainfluenza 4 (PCR) Not detected RSV (PCR) Not detected Entero/Rhino (PCR) Not detected SARS-CoV-2 (PCR) Not detected
[2025-02-15] MEDS: LIDOCAINE 5% PATCH 1 PATCH TOPICAL (09:51)
[2025-02-15] MEDS: ENOXAPARIN 40 MG/0.4 ML SYRINGE SUB-Q (09:51)
[2025-02-15] MEDS: FUROSEMIDE INJ 40 MG/4 ML VIAL IV PUSH (09:51)
[2025-02-15] MEDS: NEBIVOLOL HCL 5 MG TABLET 10 MG PO (09:54)
[2025-02-15] MEDS: OMEGA 3 POLYUNSAT FATTY ACIDS 1 GM CAP PO (09:54)
[2025-02-15] MEDS: guaiFENesin 12 HR 600 MG TABCR 1200 MG PO (09:54)
[2025-02-15] MEDS: TELMISARTAN 40 MG TABLET PO (09:54)
[2025-02-15] MEDS: POTASSIUM CHLORIDE 20 MEQ ER TABLET 40 MEQ PO (09:54)
[2025-02-15] MEDS: PANTOPRAZOLE 40 MG TABLET PO (09:55)
[2025-02-15] MEDS: PRAVASTATIN SODIUM 20 MG TABLET 40 MG PO (09:55)
[2025-02-15] MEDS: DOCUSATE SODIUM 100 MG CAPSULE PO ×2 (09:55→17:50)
[2025-02-15] MEDS: FOLIC ACID 1 MG TABLET PO (09:55)
[2025-02-15] MEDS: SPIRONOLACTONE 25 MG TABLET PO (09:55)
[2025-02-15] MEDS: MONTELUKAST SODIUM 10 MG TABLET PO (09:55)
[2025-02-15] MEDS: ASPIRIN 81 MG ENTERIC TABLET PO (09:55)
[2025-02-15] MEDS: CHOLECALCIFEROL (VITAMIN D3) 125 MCG (5,000 UNITS) TABLET 50 MCG PO (09:55)
[2025-02-15 11:09] LABS: Anti-CCP Ab, IgG/IgA 8 units (0-19)
--- NOTE | 2025-02-15 11:59 | HOMEO2EVAL ---
Evaluation was performed at [facility] Home Oxygen Evaluation RC: Home Oxygen (O2) Evaluation Start: 02/15/25 09:57 Freq: ONCE Status: Active Protocol: RPE Activity Type Activity Date Activity User E-sign Co-sign Detail Recorded Client Recorded Date Recorded By Document 02/15/25 11:15 TEDDY [email or web address] 02/15/25 11:59 TEDDY Document 02/15/25 11:16 TEDDY [email or web address] 02/15/25 11:59 TEDDY Document 02/15/25 11:17 TEDDY [email or web address] 02/15/25 11:59 TEDDY Document 02/15/25 11:20 TEDDY [email or web address] 02/15/25 11:59 TEDDY Document 02/15/25 11:30 TEDDY [email or web address] 02/15/25 11:59 TEDDY 02/15/25 02/15/25 02/15/25 11:15 11:16 11:17 Home O2 Evaluation [Oxygen] -Test Phase Resting Resting Resting -Oxygen Delivery Room Air Nasal Cannula Nasal Cannula -Oxygen Flow Rate (L/min) 1 2 [Pulse Oximetry] -Pulse Oximetry (90-100 %) 86 L 88 L 93 [Comments] -Home Oxygen Evaluation Comments [Charges] -Evaluation Charges O2 Evaluation by Pulmonary 02/15/25 02/15/25 11:20 11:30 Home O2 Evaluation [Oxygen] -Test Phase Exercise Resting -Oxygen Delivery Nasal Cannula Nasal Cannula -Oxygen Flow Rate (L/min) 2 2 [Pulse Oximetry] -Pulse Oximetry (90-100 %) 91 94 [Comments] -Home Oxygen Evaluation Comments Patient up from chair, arm and leg exercises. Confused with unstable gait, unable to ambulate at this time. [Charges] -Evaluation Charges
--- NOTE | 2025-02-15 12:00 | PCRCNOTE ---
Home O2 eval completed, unable to ambulate at this time. 2 liters with rest and minimal exertion. Will contact [facility] in regards to patient home concentrator unit not able to go up above 4 liters. Will need to increased bleed-in with home cpap unit as well. Awaiting overnight testing on 5 liters bleed-in. DME is [facility] [phone]
--- NOTE | 2025-02-15 15:08 | PCRCNOTE ---
Spoke to Karely at [facility]. He stated he will try to get ahold of spouse to set time to exchange concentrator for new one today or tommorrow. Karely will also ensure they have adequate supply of back-up tanks. [facility] will need a new order for any Changes in O2 needs and bleed-in o2 needs. Currently using 2 liters home o2 continuous and 0.5 liter o2 bleed-in per [facility] order.
[2025-02-15] MEDS: cefTRIAXone 1 GM in SODIUM CHLORIDE 0.9% IV 50 ML 100 ML IVPB (17:50)
--- NOTE | 2025-02-15 21:18 | PC.NURSE ---
Me and the the nurse who had pt on days ( Deanna) walked into pt room to do bedside report and were immediately told to mind our own business and so we did shift report outside of room. 20 minutes later the pts calls up to the medical research associate and says Marialuisa is texting him saying shes gonna hurt herself and that there is no point of living. I immediately went to the pts room and asked her if she is having suicidal thoughts or thoughts of harming herself she replied Are you fucking crazy? I never have had those thoughts and I have never told anyone that I am feeling that way. (pt on a previously admission was on SI precautions). Provider was notified and agreed with keeping pt on standard precautions but to notify if something changed. was called back and informed on what pt and provider said and felt comfortable with solution.
--- NOTE | 2025-02-15 22:43 | PC.NURSE ---
Attempted to give pt her night time medication, pt refused saying I do not feel like taking meds tonight. Pt educated on all the Meds she has scheduled for [facility] to see if she would take some but pt refused.
[2025-02-16] VITALS (8 sets, daily range): BP systolic 107–127; BP diastolic 7–70; PULSE 66–80; RESP 12–20; TEMP 36.4–36.7; O2SAT 95–100
[2025-02-16 04:45] LABS: Hematocrit 29.4 % (37.0-47.0); Hemoglobin 9.8 g/dL (12.0-15.0); Immature Granulocyte Percent A 1.9 % (0-0.5); Lymphocytes Absolute Auto 1.54 K/mm3 (0.9-3.2); Mean Corpuscular HGB Conc 33.3 g/dl (32-36); Mean Corpuscular Hemoglobin 31.5 pg (26-34); Mean Corpuscular Volume 94.5 fl (80-100); Nucleated Red Blood Cells Absolute Auto 0.000 K/mm3 (0.0-0.012); Nucleated Red Blood Cells Perc 0.0 % (0.0-0.2); Platelet Count Result 148 k/mm3 (150-375); Red Blood Count 3.11 M/mm3 (4.2-5.4); White Blood Count 12.9 K/mm3 (4.5-10.0)
[2025-02-16 05:05] LABS: Alanine Aminotransferase 45 U/L (6-35); Albumin Level 3.7 g/dL (3.5-5.1); Alkaline Phosphatase 68 U/L (38-126); Anion Gap 4 mmol/L (4-12); Aspartate Amino Transferase 54 U/L (14-36); Bilirubin,Total 0.9 mg/dL (0.2-1.3); Blood Urea Nitrogen 30 mg/dL (7-17); Calcium 9.3 mg/dL (8.4-10.2); Carbon Dioxide 31 mmol/L (22-30); Chloride 91 mmol/L (98-107); Estimated CRCL calculation 43 ml/min; Estimated Glomerular Filt Rate 54; Glucose 96 mg/dL (65-110); Potassium 3.2 mmol/L (3.4-5.0); Sodium 126 mmol/L (137-145); Total Protein 6.3 g/dL (6.3-8.2)
[2025-02-16] MEDS: MONTELUKAST SODIUM 10 MG TABLET PO (09:11)
[2025-02-16] MEDS: APIXABAN 5 MG TABLET PO (09:11)
[2025-02-16] MEDS: LIDOCAINE 5% PATCH 1 PATCH TOPICAL (09:11)
[2025-02-16] MEDS: ASPIRIN 81 MG ENTERIC TABLET PO (09:11)
[2025-02-16] MEDS: PANTOPRAZOLE 40 MG TABLET PO (09:11)
[2025-02-16] MEDS: FOLIC ACID 1 MG TABLET PO (09:11)
[2025-02-16] MEDS: CHOLECALCIFEROL (VITAMIN D3) 125 MCG (5,000 UNITS) TABLET 50 MCG PO (09:11)
[2025-02-16] MEDS: OMEGA 3 POLYUNSAT FATTY ACIDS 1 GM CAP PO (09:11)
[2025-02-16] MEDS: TELMISARTAN 40 MG TABLET PO (09:11)
[2025-02-16] MEDS: PRAVASTATIN SODIUM 20 MG TABLET 40 MG PO (09:12)
[2025-02-16] MEDS: NEBIVOLOL HCL 5 MG TABLET 10 MG PO (09:12)
[2025-02-16] MEDS: DOCUSATE SODIUM 100 MG CAPSULE PO (09:12)
--- NOTE | 2025-02-16 09:12 | P.PNIM_ITS ---
Assessment and Plan Assessment and Plan (1) Asthma with exacerbation: Code(s): J45.901 - Unspecified asthma with (acute) exacerbation Status: Acute Assessment and Plan: * Oxygen requirement: 2L NC (at baseline) * Chest XR CHF. Superimposed probable pneumonia. The findings appear progressed compared to the previous study. * ABG * Current treatment: duoneb and steroid q 6 hr * Pulmonology consulted - following * Continue Solu-Medrol 60 mg IV q.6 hours, DuoNebs q.6 hours, Singulair 10 mg q.day * Pending respiratory panel, urine for Legionella/pneumococcal antigen and mycoplasma IgM * Continue Rocephin, montelukast, and guaifenesin. (2) Acute and chronic respiratory failure: Qualifiers: Respiratory failure complication: hypoxia Qualified Code(s): J96.21 - Acute and chronic respiratory failure with hypoxia Code(s): J96.20 - Acute and chronic respiratory failure, unspecified whether with hypoxia or hypercapnia Status: Acute Assessment and Plan: Acute on chronic respiratory failure. At baseline requires 2 L nasal cannula at all times. Now requiring 4 L nasal cannula to maintain O2 sat greater than 92%. Subsequently placed on BiPAP for work of breathing. Initial ABG in the ED showed no significant derangements. Workup/clinical picture concerning for CHF exacerbation, pneumonia, and COPD exacerbation. * Lasix 40 mg daily for CHF exacerbation * broad-spectrum antibiotics and supportive care for pneumonia * started on BiPAP in the ED on 02/10, continued inpatient * schedule DuoNebs and prednisone for COPD exacerbation * continue supplemental oxygen to maintain O2 sat greater than 92%, may wean to baseline O2 requirement as tolerated * Off BIPAP, now back on 2L NC which is her baseline * Pulmonology following * D-dimer 0.7 * Chest CTA negative for evidence of PE * Bilateral lower extremity venous Doppler: Negative for DVT (3) Pneumonia: Qualifiers: Laterality: bilateral Lung location: unspecified part of lung Pneumonia type: due to unspecified organism Qualified Code(s): J18.9 - Pneumonia, unspecified organism Code(s): J18.9 - Pneumonia, unspecified organism Status: Acute Assessment and Plan: * CXR concerning for CHF in superimposed probable pneumonia (Bilateral infiltrates). * reporting productive cough. No nausea, vomiting, diarrhea, fever, chills. No leukocytosis. Did not meet SIRS criteria. * started on ceftriaxone and azithromycin 02/10 * supportive care including Mucinex, Tessalon Perles, Tylenol * viral PCR negative on 02/10 * Continue ABX (4) Acute exacerbation of CHF (congestive heart failure): Qualifiers: Heart failure type: diastolic Qualified Code(s): I50.33 - Acute on chronic diastolic (congestive) heart failure Code(s): I50.9 - Heart failure, unspecified Status: Acute Assessment and Plan: * CXR concerning for moderate pulmonary venous congestion consistent with CHF exacerbation. * History of diastolic dysfunction. * Last echo in 2022 which showed hyperdynamic systolic function with an estimated EF greater than 70%, grade 1 diastolic dysfunction, LA mildly enlarged, no pulmonary hypertension, mild AV sclerosis. * Reports new swelling x1 day prior to arrival. BNP elevated upon admission. * Echocardiogram 02/13/25: EF 55-60%, severe enlargement left atrial chamber, moderate enlargement right atrial chamber, mild pulmonary hypertension, trace AVR/TVR, mild MVR * Lasix 40 mg daily, 1st dose on 02/10 * monitor daily weights and I&Os * Overall -6.1L since admission * monitor renal function (5) Interstitial lung disease: Code(s): J84.9 - Interstitial pulmonary disease, unspecified Status: Acute Assessment and Plan: * For seen on CT scan 10/02/ not 22 * PFTs on not 24 consistent with mild restrictive abnormality with a FEV1 of 1.68 L with significant decrease in FEV 1 with repeat PFTs on 12/08/2021 * Obtain repeat chest CT scan to assess progression of eye LD * Continue Solu-Medrol 60 mg IV q.6 hours * Repeat serologies pending (6) Hypertension: Qualifiers: Hypertension type: primary hypertension Qualified Code(s): I10 - Essential (primary) hypertension Code(s): I10 - Essential (primary) hypertension Status: Chronic Assessment and Plan: * chronic, currently 111/70, stable. * continue home medications * monitor (7) Hypothyroidism: Qualifiers: Hypothyroidism type: acquired Qualified Code(s): E03.9 - Hypothyroidism, unspecified Code(s): E03.9 - Hypothyroidism, unspecified Status: Chronic Assessment and Plan: * Stable * TSH 0.713 in October of 2024 * continue Synthroid (8) NBA on CPAP: Code(s): G47.33 - Obstructive sleep apnea (adult) (pediatric); Z99.89 - Dependence on other enabling machines and devices Status: Chronic Assessment and Plan: * continue home CPAP Plan Diet: heart healthy GI Prophylaxis: n/a DVT Prophylaxis: Lovenox SQ IV fluids: none, diuresing Lines/Tubes: pIV Code Status: full code Subjective Date/time seen: 02/16/25 09:12 Interval history: 79 y/o F with PMH of dementia, chronic respiratory failure, diastolic dys function, anemia, COPD, hypertension, fibromyalgia among other chronic medical conditions presents here with shortness of breath. 02/15 remaining in the upper 90%s on 2L NC. Plan to continue Rocephin, montelukast, and guaifenesin. Cardiology following for afib with RVR, rat controlling with beta blockers, anticoagulating. Pulmonary consulted for asthma exacerbation, completes 7 days azithomycin and ceftriaxone. Overnight oximetry on cpap 13, 5L bleed in overnight. Needs CPAP at night OK to discharge per Dr. Bland--New concentrator 5L at night, RT setting up. [employer] planning to deliver, can discharge when delivered. DC to SNF. Lives at [facility] with CT scan of neck no abnormalities Review of Systems Review of Systems: All systems reviewed & are unremarkable except as noted in HPI and below Exam Narrative: General - Awake and alert. No acute distress Eyes - PERRLA, EOM intact ENT - No thrush, No erythema Neck - No noticeable or palpable swelling Lymph Nodes - No lymphadenopathy Cardiovascular - RRR no m/r/g, no JVD Lungs: Clear to auscultation, No wheezing, use of accessory muscles, no crackles Skin - Skin warm and dry, no wounds or rashes Abdomen - Normal bowel sounds, abdomen soft and nontender Extremities - No edema, cyanosis or clubbing Musculoskeletal - 5/5 strength, normal range of motion, no swollen or erythematous joints. Neurological ? Alert and oriented x 3, CN 2-12 grossly intact. Psych: Normal mood and affect Objective Data Vital Signs Vital Signs: Vital Signs - 24 hr 02/15/25 09:54 02/15/25 10:00 02/15/25 11:15 Temperature Pulse Rate 86 85 Respiratory Rate Blood Pressure Pulse Oximetry 86 L Oxygen Delivery Room Air Oxygen Flow Rate 02/15/25 11:16 02/15/25 11:17 02/15/25 11:20 Temperature Pulse Rate Respiratory Rate Blood Pressure Pulse Oximetry 88 L 93 91 Oxygen Delivery Nasal Cannula Nasal Cannula Nasal Cannula Oxygen Flow Rate 1 2 2 02/15/25 11:30 02/15/25 11:59 02/15/25 12:00 Temperature 98.3 F Pulse Rate 88 77 Respiratory Rate 16 Blood Pressure 122/73 Pulse Oximetry 94 94 Oxygen Delivery Nasal Cannula Oxygen Flow Rate 2 02/15/25 14:00 02/15/25 16:00 02/15/25 16:00 Temperature 98.1 F Pulse Rate 86 90 84 Respiratory Rate 16 Blood Pressure 109/78 Pulse Oximetry 98 Oxygen Delivery Oxygen Flow Rate 02/15/25 20:00 02/15/25 20:39 02/15/25 22:40 Temperature 98.3 F Pulse Rate 107 H 102 H 78 Respiratory Rate 16 Blood Pressure 147/85 H Pulse Oximetry 97 95 Oxygen Delivery CPAP Oxygen Flow Rate 02/15/25 22:40 02/16/25 00:00 02/16/25 04:00 Temperature Pulse Rate 72 75 Respiratory Rate Blood Pressure Pulse Oximetry 94 Oxygen Delivery High Flow Nasal Cannula Oxygen Flow Rate 2 02/16/25 04:49 02/16/25 06:00 02/16/25 08:00 Temperature 97.8 F 97.6 F Pulse Rate 75 69 74 Respiratory Rate 16 12 Blood Pressure 123/70 127/7 L Pulse Oximetry 95 98 100 Oxygen Delivery CPAP Oxygen Flow Rate Intake/Output Intake/Output: Intake & Output 02/13/25 02/14/25 02/15/25 02/16/25 23:59 23:59 23:59 23:59 Intake Total 1020 1890 1200 Output Total 2210 1300 800 700 Balance -1190 590 400 -700 Meds/Results Medications: Active Medications Generic Name Dose Route Start Last Admin Trade Name Freq PRN Reason Stop Dose Admin Acetaminophen 650 mg 02/10/25 19:39 Acetaminophen 325 Mg Tablet PO Q6H PRN Mild Pain (1-3) or Fever Albuterol 2.5 mg 02/12/25 12:50 02/12/25 16:50 Albuterol Sulfate Neb 2.5 Mg/3 Ml Inh INHALATION 2.5 mg Q6-8H PRN Administration Shortness Of Breath Or Wheezing Amlodipine Besylate 10 mg 02/13/25 09:00 02/15/25 09:55 Amlodipine Besylate 10 Mg Tablet PO 10 mg DAILY [facility] Administration Apixaban 5 mg 02/15/25 21:00 02/15/25 22:47 Apixaban 5 Mg Tablet PO Not Given Q12HR [facility] Aspirin 81 mg 02/13/25 09:00 02/15/25 09:55 Aspirin 81 Mg Enteric Tablet PO 81 mg QAM [facility] Administration Benzonatate 100 mg 02/10/25 19:39 Benzonatate 100 Mg Capsule PO TID PRN Cough Diclofenac Sodium 1 applic 02/12/25 12:50 Diclofenac Sodium 1% 100 Gm Gel (*Bkc) TOPICAL QID PRN Pain Docusate Sodium 100 mg 02/12/25 17:00 02/15/25 17:50 Docusate Sodium 100 Mg Capsule PO 100 mg BID [facility] Administration Donepezil HCl 5 mg 02/12/25 21:00 02/15/25 22:47 Donepezil Hcl 5 Mg Tablet PO Not Given QHS [facility] Fish Oil 1 gm 02/13/25 09:00 02/15/25 09:54 Sunol 3 Polyunsat Fatty Acids 1 Gm Cap PO 1 gm QAM [facility] Administration Fluoxetine HCl 20 mg 02/12/25 13:00 02/15/25 17:50 Fluoxetine Hcl 20 Mg Capsule PO 20 mg TID [facility] Administration Fluticasone/Umeclidinium/Vilanterol 1 puff 02/15/25 09:25 Fluticasone/Umeclidin/Vilanter 200-62.5-25 Mcg Ellipta INHALATION DAILYRT [facility] Folic Acid 1 mg 02/13/25 09:00 02/15/25 09:55 Folic Acid 1 Mg Tablet PO 1 mg DAILY [facility] Administration Furosemide 20 mg 02/12/25 12:50 Furosemide 20 Mg Tablet PO QPM PRN weight gain Gabapentin 300 mg 02/12/25 14:00 02/16/25 06:39 Gabapentin 300 Mg Capsule PO Not Given Q8HR [facility] Guaifenesin 1,200 mg 02/13/25 21:00 02/15/25 22:48 Guaifenesin 12 Hr 600 Mg Tabcr PO Not Given Q12HR [facility] Ceftriaxone Sodium 1 gm/ 50 mls @ 100 mls/hr 02/11/25 17:00 02/15/25 17:50 Sodium Chloride IVPB 02/16/25 23:59 100 mls/hr Q24H [facility] Administration Levothyroxine Sodium 150 mcg 02/13/25 06:30 02/16/25 06:39 Levothyroxine Sodium 150 Mcg Tablet PO Not Given DAILY@0630 [facility]IN Lidocaine 1 patch 02/13/25 09:00 02/15/25 09:51 Lidocaine 5% Patch TOPICAL 1 patch DAILY [facility]IN Administration Loratadine 10 mg 02/12/25 12:50 Loratadine 10 Mg Tablet PO DAILY PRN allergy symptoms Montelukast Sodium 10 mg 02/13/25 09:00 02/15/25 09:55 Montelukast Sodium 10 Mg Tablet PO 10 mg DAILY [facility]IN Administration Nebivolol 10 mg 02/13/25 09:00 02/15/25 09:54 Nebivolol Hcl 5 Mg Tablet PO 10 mg DAILY VIN Administration Home Med ( 1 tab 02/14/25 17:00 02/15/25 09:56 Vibegron 75 Tab) PO 03/16/25 16:59 1 tab DAILY VIN Administration Pantoprazole Sodium 40 mg 02/12/25 21:00 02/15/25 22:48 Pantoprazole 40 Mg Tablet PO Not Given Q12HR [facility]IN Perflutren Lipid Microsphere 0 ml 02/13/25 14:04 Perflutren Lipid Microspheres 1.5 Ml Vial Diluted To 10 Ml Total Volume IV PUSH 02/16/25 14:04 ONCE PRN adequate visualization Protocol Pravastatin Sodium 40 mg 02/13/25 09:00 02/15/25 09:55 Pravastatin Sodium 20 Mg Tablet PO 40 mg DAILY [facility]IN Administration Spironolactone 25 mg 02/13/25 09:00 02/15/25 09:55 Spironolactone 25 Mg Tablet PO 25 mg DAILY [facility]IN Administration Telmisartan 40 mg 02/12/25 21:00 02/15/25 22:48 Telmisartan 40 Mg Tablet PO Not Given Q12HR [facility]IN Vitamin D 50 mcg 02/13/25 09:00 02/15/25 09:55 Cholecalciferol (Vitamin D3) 125 Mcg (5,000 Units) Tablet PO 50 mcg DAILY VIN Administration Radiology Results: ITS Impressions Chest X-Ray 02/10/25 16:03 Impression: CHF. Superimposed probable pneumonia. The findings appear progressed compared to the previous study. Chest CTA 02/13/25 15:24 IMPRESSION: 1. No evidence of pulmonary emboli. No acute abnormalities of thoracic aorta. 2. Emphysematous lungs. Mild groundglass opacity of lung bases due to mild congestive changes. No pleural or pericardial effusion. 3. Severe scoliosis and postsurgical changes with degenerative disc disease of thoracolumbar spine. Venous Doppler Study 02/13/25 17:12 Impression: Negative for DVT. Neck/Chest CT 02/15/25 11:44 IMPRESSION: 1. No acute process involving the trachea identified; no evidence of tracheobronchomalacia on this exam. There is calcification throughout the tracheal air column and bronchial passages which is chronic and benign. 2. Other findings as above including a large central and main pulmonary arteries suggesting pulmonary arterial hypertension; interstitial lung pattern consistent with fibrosing form of nonspecific interstitial pneumonitis or possible mild UIP. Groundglass opacification could represent alveolar fibrosis versus superimposed acute atypical inflammatory/infectious pneumonitis. Labs Labs: Laboratory Results - last 24 hr 02/14/25 02/16/25 05:52 04:04 WBC 12.9 H RBC 3.11 L Hgb 9.8 L Hct 29.4 L MCV 94.5 MCH 31.5 MCHC 33.3 RDW 14.0 Plt Count 148 L MPV 11.3 H Immature Gran % (Auto) 1.9 H Neut % (Auto) 69.6 Lymph % (Auto) 11.9 L [place] % (Auto) 16.1 H Eos % (Auto) 0.3 Baso % (Auto) 0.2 Lymph # (Auto) 1.54 [place] # (Auto) 2.1 H Eos # (Auto) 0.0 Baso # (Auto) 0.0 Abs Immat Gran (auto) 0.25 H Absolute Neuts (auto) 9.0 H Absolute Nucleated RBC 0.000 Nucleated RBC % 0.0 Sodium 126 L Potassium 3.2 L Chloride 91 L Carbon Dioxide 31 H Anion Gap 4 BUN 30 H Creatinine 0.98 Estim Creat Clear Calc 43 Estimated GFR 54 L Glucose 96 Calcium 9.3 Total Bilirubin 0.9 AST 54 H ALT 45 H Alkaline Phosphatase 68 Total Protein 6.3 Albumin 3.7 Aldolase 8.0 CCP IgG/IgA Ab 8 M.pneumoniae IgM Titer <770 Quality VTE Prophylaxis VTE prophylaxis: pharmacologic ordered
[2025-02-16] MEDS: SPIRONOLACTONE 25 MG TABLET PO (09:13)
[2025-02-16] MEDS: guaiFENesin 12 HR 600 MG TABCR 1200 MG PO (09:13)
--- NOTE | 2025-02-16 09:39 | P.PNPL_ITS ---
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 consistent with fibrosing form of nonspecific interstitial pneumonitis or possible mild UIP. Groundglass opacification could represent alveolar fibrosis versus superimposed acute atypical inflammatory/infectious pneumonitis. 02/15/24: CT Scan of the Chest without Contrast: Clinical Indication: Interstitial lung disease Technique: Contiguous sections were acquired throughout the chest without intravenous contrast. Dose reduction technique was used on this scan by utilizing automated exposure control and iterative reconstruction technique. The dose-length product (DLP) was 331.74 mGy-cm. COMPARISON: 03/18/2023 Findings: Mildly prominent mediastinal lymph nodes are stable from prior exam. No aortic aneurysm. Coronary artery calcification present. There is no evidence of pleural or pericardial effusion. Extensive interstitial thickening the lungs is similar to prior exam, with some increased background groundglass component throughout the lungs. Images through the upper abdomen reveal no abnormalities. There is extensive degenerative spondylosis in the spine. Impression: Stable extensive interstitial disease in the lungs. Mildly increased background groundglass opacity, which could reflect progressing interstitial disease versus other superimposed pathology such as bronchiolitis, asthma, or mild pulmonary edema, versus suboptimal inspiration. 09/20/22 - Home O2 Eval - Patient requires 2L/min O2 with ambulation and none at rest. 09/20/2022: This is a pulmonary function test with pre and post-bronchodilator spirometry, plethysmography and diffusing capacity. The test was performed and results interpreted in accordance with the 2019 and 2005 ATS/ERS Task Force guidelines respectively using the Global Lung Function Initiative-2012 reference equations. Patient demonstrated good effort and cooperation. Reproducibility criteria were met. The quality of the pre bronchodilator spirometry maneuver was Grade A and post bronchodilator spirometry maneuver was Grade A. Findings: Spirometry: The contour the expiratory flow tracing is notched in all pre and post bronchodilator efforts. The contour the inspiratory flow tracing is normal. The pre bronchodilator FVC is 2.13 L, 80% predicted. The pre bronchodilator FEV1 is 1.70 L, 84% predicted. The pre bronchodilator FEV1: FVC ratio is 80%. The post bronchodilator FVC is 2.14 L, representing no change. The post bronchodilator FEV1 is 1.69 L, representing a 1% decrease. The post br onchodilator FEV1: FVC ratio 79%. Plethysmography: The total lung capacity is 3.85 L, 74% predicted. The functional residual capacity is 1.73 L, 58% predicted. The residual volume is 1.55 L, 64% predicted. Diffusing capacity: The diffusing capacity unadjusted for hemoglobin and carboxyhemoglobin is 9.5, 48% predicted. The diffusing capacity adjusted for alveolar volume is 2.72, 66% predicted. Impression: The contour of the expiratory flow tracing demonstrates a reproducible notched pattern. The notched pattern has been described with coughing or tracheobronchomalacia. The contour the inspiratory flow tracing is normal. Otherwise, the spirometry is normal without evidence of an obstructive abnormality. There is a mild restrictive ventilatory abnormality with a normal FEV1. There is no significant improvement after inhaling a single dose of albuterol. The diffusing capacity unadjusted for hemoglobin and carboxyhemoglobin is moderately decreased and remains mildly decreased when adjusted for alveolar volume. There are no prior studies for comparison 09/20/2022: EXAMINATION: CT chest high resolution wo co DATE: 10/02/2021 12:18 INDICATION: Interstitial lung disease TECHNIQUE: Computed tomography (CT) of the chest was performed without intravenous contrast. The dose-length product was 517.08 mGy-cm. Automated exposure control and iterative reconstruction technique were employed. COMPARISON: Chest x-ray dated 08/18/2021 FINDINGS: There is mild mediastinal lymphadenopathy. AP window lymph node measuring 1 cm short axis. There is mild atherosclerosis of the aorta and coronary arteries. Borderline heart size. No significant pleural or pericardial effusion. Small hiatal hernia. Status post cholecystectomy with pneumobilia. There is a combination of peripheral interstitial lung disease with interlobular septal thickening and groundglass opacities. There is mild lower lobe bronchiectasis bilaterally. No pneumothorax. No endobronchial lesions. Mild emphysema. There is severe thoracic spondylosis with S-shaped scoliosis. No acute osseous abnormality. There are a few small nodules in both lungs measuring 2 mm or less, likely benign. IMPRESSION: 1. Coarse interstitial lung disease, likely chronic, in a pattern consistent with usual interstitial pneumonia (UIP). 2: Mild emphysema. 3: Mild mediastinal lymphadenopathy, likely reactive. 07/13/22: Echo Summary 1. Complete two-dimensional, color flow and Doppler transthoracic echocardiogram is performed. 2. Left ventricular chamber dimension is normal. 3. Left ventricular systolic function is hyperdynamic, estimated at >70%. 4. The left ventricular diastolic function is grade I diastolic dysfunction. 5. E/e' 9 is minimally elevated. 6. Left atrial chamber dimension is moderately enlarged. 7. There is mild aortic valve sclerosis. 8. No pulmonary hypertension, estimated pulmonary arterial systolic pressure is 24 mmHg. Right Ventricle Right ventricular systolic function is normal and with normal TAPSE 3.2 cm. Right ventricular chamber dimension is normal. Left Atria Left atrial chamber dimension is moderately enlarged. Right Atria Right atrial chamber dimension is normal. * 02/15/22 - Split PSG - Mild sleep apnea with AHI 8.1 and desaturation to 78%. CPAP 8cmH2O EPR 1 and 2L/min supplemental O2 was recommended. * 12/08/21 - PFT - Spirometry is normal without evidence of obstructive abnormality. * 12/08/21 - 6mw on home requirement 2L/min - The patient's resting 2 L nasal canula oxygen saturation measured by pulse oximetry was 98% and heart rate was 66 bpm. Patient ambulated for 61 meters and oxygen saturation remained 93 to 98%. Heart rate at the end of the study was 85 bpm. Of note, during the recovery phase the patient desaturated to a abdelrahman of 85% at 6 minutes and 32 seconds. Patient saturations increased and were 91% at 7 minutes and 8 seconds. * 12/08/21 - Echo - LV systolic function normal, EF 55-60%. Grade I diastolic dysfunction. Moderate LA enlargement. Trace mitral valve regurgitation. * 10/02/21 - EXAMINATION: CT chest high resolution wo co DATE: 10/02/2021 12:18 INDICATION: Interstitial lung disease TECHNIQUE: Computed tomography (CT) of the chest was performed without intravenous contrast. The dose-length product was 517.08 mGy-cm. Automated exposure control and iterative reconstruction technique were employed. COMPARISON: Chest x-ray dated 08/18/2021 FINDINGS: There is mild mediastinal lymphadenopathy. AP window lymph node measuring 1 cm short axis. There is mild atherosclerosis of the aorta and coronary arteries. Borderline heart size. No significant pleural or pericardial effusion. Small hiatal hernia. Status post cholecystectomy with pneumobilia. There is a combination of peripheral interstitial lung disease with interlobular septal thickening and groundglass opacities. There is mild lower lobe bronch iectasis bilaterally. No pneumothorax. No endobronchial lesions. Mild emphysema. There is severe thoracic spondylosis with S-shaped scoliosis. No acute osseous abnormality. There are a few small nodules in both lungs measuring 2 mm or less, likely benign. IMPRESSION: 1. Coarse interstitial lung disease, likely chronic, in a pattern consistent with usual interstitial pneumonia (UIP). 2: Mild emphysema. 3: Mild mediastinal lymphadenopathy, likely reactive. Review of Systems Constitutional: Constitutional: Reports no additional constitutional complaints Eyes: Eyes: Reports no additional eye complaints ENT: Reports system reviewed and no additional complaints, except as documented Cardiovascular: Cardiovascular: Reports no additional cardiovascular complaints Respiratory: Respiratory: Reports no additional respiratory complaints Gastrointestinal: Gastrointestinal: Reports no additional gastrointestinal complaints Musculoskeletal: Musculoskeletal: Reports no additional musculoskeletal complaints Neurologic: Reports system reviewed and no additional complaints, except as documented Psychiatric: Psychiatric: Reports no additional psychiatric complaints Endocrine: Endocrine: Reports no additional endocrine complaints Hematologic/Lymphatic: Hematologic/Lymphatic: Reports no additional hematologic/lymphatic complaints Allergic/Immunologic: Allergic/Immunologic: Reports no additional allergic/immunologic complaints Exam Const: General: cooperative, healthy appearing and comfortable Orientation/consciousness: oriented to person, oriented to place and oriented to time HENMT: Head: normal to inspection Ears: hearing grossly normal bilaterally Eyes: General: appearance normal, both eyes and all related structures Neck: Neck: normal visual inspection Chest: Chest palpation & inspection: normal inspection of the chest Resp: Effort & Inspection: normal respiratory effort and able to speak in complete sentences Auscultation: crackles, no rales, no rhonchi, no wheezes and lung sounds not diminished Other: Bibasilar dry inspiratory crackles left greater than right. No wheezing. Cardio: Jugular venous distension: no JVD GI: Inspection: normal to inspection Skin: General skin exam: normal color Neuro: General: oriented to person, oriented to place and oriented to time Extrem: General: normal to inspection Other: Trace edema, this has improved per the . Psych: Appearance: grossly normal Objective Data Vital Signs Vital Signs: Vital Signs - 24 hr 02/15/25 09:54 02/15/25 10:00 02/15/25 11:15 Temperature Pulse Rate 86 85 Respiratory Rate Blood Pressure Pulse Oximetry 86 L Oxygen Delivery Room Air Oxygen Flow Rate 02/15/25 11:16 02/15/25 11:17 02/15/25 11:20 Temperature Pulse Rate Respiratory Rate Blood Pressure Pulse Oximetry 88 L 93 91 Oxygen Delivery Nasal Cannula Nasal Cannula Nasal Cannula Oxygen Flow Rate 1 2 2 02/15/25 11:30 02/15/25 11:59 02/15/25 12:00 Temperature 36.8 C Pulse Rate 88 77 Respiratory Rate 16 Blood Pressure 122/73 Pulse Oximetry 94 94 Oxygen Delivery Nasal Cannula Oxygen Flow Rate 2 02/15/25 14:00 02/15/25 16:00 02/15/25 16:00 Temperature 36.7 C Pulse Rate 86 90 84 Respiratory Rate 16 Blood Pressure 109/78 Pulse Oximetry 98 Oxygen Delivery Oxygen Flow Rate 02/15/25 20:00 02/15/25 20:39 02/15/25 22:40 Temperature 36.8 C Pulse Rate 107 H 102 H 78 Respiratory Rate 16 Blood Pressure 147/85 H Pulse Oximetry 97 95 Oxygen Delivery CPAP Oxygen Flow Rate 02/15/25 22:40 02/16/25 00:00 02/16/25 04:00 Temperature Pulse Rate 72 75 Respiratory Rate Blood Pressure Pulse Oximetry 94 Oxygen Delivery High Flow Nasal Cannula Oxygen Flow Rate 2 02/16/25 04:49 02/16/25 06:00 02/16/25 08:00 Temperature 36.6 C 36.4 C Pulse Rate 75 69 74 Respiratory Rate 16 12 Blood Pressure 123/70 127/7 L Pulse Oximetry 95 98 100 Oxygen Delivery CPAP Oxygen Flow Rate 02/16/25 09:12 Temperature Pulse Rate 74 Respiratory Rate Blood Pressure Pulse Oximetry Oxygen Delivery Oxygen Flow Rate Intake/Output Intake/Output: Intake & Output 02/13/25 02/14/25 02/15/25 02/16/25 23:59 23:59 23:59 23:59 Intake Total 1020 1890 1200 Output Total 2210 1300 800 700 Balance -1190 590 400 -700 Meds/Results Medications: Active Medications Generic Name Dose Route Start Last Admin Trade Name Freq PRN Reason Stop Dose Admin Acetaminophen 650 mg 02/10/25 19:39 Acetaminophen 325 Mg Tablet PO Q6H PRN Mild Pain (1-3) or Fever Albuterol 2.5 mg 02/12/25 12:50 02/12/25 16:50 Albuterol Sulfate Neb 2.5 Mg/3 Ml Inh INHALATION 2.5 mg Q6-8H PRN Administration Shortness Of Breath Or Wheezing Amlodipine Besylate 10 mg 02/13/25 09:00 02/16/25 09:13 Amlodipine Besylate 10 Mg Tablet PO 10 mg DAILY VIN Administration Apixaban 5 mg 02/15/25 21:00 02/16/25 09:11 Apixaban 5 Mg Tablet PO 5 mg Q12HR VIN Administration Aspirin 81 mg 02/13/25 09:00 02/16/25 09:11 Aspirin 81 Mg Enteric Tablet PO 81 mg QAM VIN Administration Benzonatate 100 mg 02/10/25 19:39 Benzonatate 100 Mg Capsule PO TID PRN Cough Diclofenac Sodium 1 applic 02/12/25 12:50 Diclofenac Sodium 1% 100 Gm Gel (*Bkc) TOPICAL QID PRN Pain Docusate Sodium 100 mg 02/12/25 17:00 02/16/25 09:12 Docusate Sodium 100 Mg Capsule PO 100 mg BID VIN Administration Donepezil HCl 5 mg 02/12/25 21:00 02/15/25 22:47 Donepezil Hcl 5 Mg Tablet PO Not Given QHS VIN Fish Oil 1 gm 02/13/25 09:00 02/16/25 09:11 [place] 3 Polyunsat Fatty Acids 1 Gm Cap PO 1 gm QAM VIN Administration Fluoxetine HCl 20 mg 02/12/25 13:00 02/16/25 09:11 Fluoxetine Hcl 20 Mg Capsule PO 20 mg TID VIN Administration Fluticasone/Umeclidinium/Vilanterol 1 puff 02/15/25 09:25 Fluticasone/Umeclidin/Vilanter 200-62.5-25 Mcg Ellipta INHALATION DAILYRT VIN Folic Acid 1 mg 02/13/25 09:00 02/16/25 09:11 Folic Acid 1 Mg Tablet PO 1 mg DAILY VIN Administration Furosemide 20 mg 02/12/25 12:50 Furosemide 20 Mg Tablet PO QPM PRN weight gain Gabapentin 300 mg 02/12/25 14:00 02/16/25 06:39 Gabapentin 300 Mg Capsule PO Not Given Q8HR [facility] Guaifenesin 1,200 mg 02/13/25 21:00 02/16/25 09:13 Guaifenesin 12 Hr 600 Mg Tabcr PO 1,200 mg Q12HR [facility] Administration Ceftriaxone Sodium 1 gm/ 50 mls @ 100 mls/hr 02/11/25 17:00 02/15/25 17:50 Sodium Chloride IVPB 02/16/25 23:59 100 mls/hr Q24H VIN Administration Levothyroxine Sodium 150 mcg 02/13/25 06:30 02/16/25 06:39 Levothyroxine Sodium 150 Mcg Tablet PO Not Given DAILY@0630 [facility] Lidocaine 1 patch 02/13/25 09:00 02/16/25 09:11 Lidocaine 5% Patch TOPICAL 1 patch DAILY VIN Administration Loratadine 10 mg 02/12/25 12:50 Loratadine 10 Mg Tablet PO DAILY PRN allergy symptoms Montelukast Sodium 10 mg 02/13/25 09:00 02/16/25 09:11 Montelukast Sodium 10 Mg Tablet PO 10 mg DAILY VIN Administration Nebivolol 10 mg 02/13/25 09:00 02/16/25 09:12 Nebivolol Hcl 5 Mg Tablet PO 10 mg DAILY VIN Administration Home Med ( 1 tab 02/14/25 17:00 02/16/25 09:13 Vibegron 75 Tab) PO 03/16/25 16:59 1 tab DAILY VIN Administration Pantoprazole Sodium 40 mg 02/12/25 21:00 02/16/25 09:11 Pantoprazole 40 Mg Tablet PO 40 mg Q12HR VIN Administration Perflutren Lipid Microsphere 0 ml 02/13/25 14:04 Perflutren Lipid Microspheres 1.5 Ml Vial Diluted To 10 Ml Total Volume IV PUSH 02/16/25 14:04 ONCE PRN adequate visualization Protocol Pravastatin Sodium 40 mg 02/13/25 09:00 02/16/25 09:12 Pravastatin Sodium 20 Mg Tablet PO 40 mg DAILY VIN Administration Spironolactone 25 mg 02/13/25 09:00 02/16/25 09:13 Spironolactone 25 Mg Tablet PO 25 mg DAILY VIN Administration Telmisartan 40 mg 02/12/25 21:00 02/16/25 09:11 Telmisartan 40 Mg Tablet PO 40 mg Q12HR VIN Administration Vitamin D 50 mcg 02/13/25 09:00 02/16/25 09:11 Cholecalciferol (Vitamin D3) 125 Mcg (5,000 Units) Tablet PO 50 mcg DAILY VIN Administration Radiology Results: ITS Impressions Chest X-Ray 02/10/25 16:03 Impression: CHF. Superimposed probable pneumonia. The findings appear progressed compared to the previous study. Chest CTA 02/13/25 15:24 IMPRESSION: 1. No evidence of pulmonary emboli. No acute abnormalities of thoracic aorta. 2. Emphysematous lungs. Mild groundglass opacity of lung bases due to mild congestive changes. No pleural or pericardial effusion. 3. Severe scoliosis and postsurgical changes with degenerative disc disease of thoracolumbar spine. Venous Doppler Study 02/13/25 17:12 Impression: Negative for DVT. Neck/Chest CT 02/15/25 11:44 IMPRESSION: 1. No acute process involving the trachea identified; no evidence of tracheobronchomalacia on this exam. There is calcification throughout the tracheal air column and bronchial passages which is chronic and benign. 2. Other findings as above including a large central and main pulmonary arteries suggesting pulmonary arterial hypertension; interstitial lung pattern consistent with fibrosing form of nonspecific interstitial pneumonitis or possible mild UIP. Groundglass opacification could represent alveolar fibrosis versus superimposed acute atypical inflammatory/infectious pneumonitis. Labs Labs: Laboratory Results - last 24 hr 02/14/25 02/16/25 05:52 04:04 WBC 12.9 H RBC 3.11 L Hgb 9.8 L Hct 29.4 L MCV 94.5 MCH 31.5 MCHC 33.3 RDW 14.0 Plt Count 148 L MPV 11.3 H Immature Gran % (Auto) 1.9 H Neut % (Auto) 69.6 Lymph % (Auto) 11.9 L [place] % (Auto) 16.1 H Eos % (Auto) 0.3 Baso % (Auto) 0.2 Lymph # (Auto) 1.54 [place] # (Auto) 2.1 H Eos # (Auto) 0.0 Baso # (Auto) 0.0 Abs Immat Gran (auto) 0.25 H Absolute Neuts (auto) 9.0 H Absolute Nucleated RBC 0.000 Nucleated RBC % 0.0 Sodium 126 L Potassium 3.2 L Chloride 91 L Carbon Dioxide 31 H Anion Gap 4 BUN 30 H Creatinine 0.98 Estim Creat Clear Calc 43 Estimated GFR 54 L Glucose 96 Calcium 9.3 Total Bilirubin 0.9 AST 54 H ALT 45 H Alkaline Phosphatase 68 Total Protein 6.3 Albumin 3.7 Aldolase 8.0 CCP IgG/IgA Ab 8 M.pneumoniae IgM Titer <770
--- NOTE | 2025-02-16 10:53 | PM.PNCARD ---
Progress Note: A&P Assessment and Plan (1) Atrial fibrillation: Code(s): I48.91 - Unspecified atrial fibrillation Status: Acute Assessment and Plan: Presenting EKG shows sinus rhythm. However, she did go in atrial fibrillation with rapid ventricular response yesterday afternoon. She remains in atrial fibrillation but is currently rate controlled. This is a new diagnosis. I discussed the diagnosis of atrial fibrillation with her including the pathophysiology, management strategies, and complications of source of atrial fibrillation. Since she has not been difficult to rate control. Will continue to pursue a rate control strategy. Continue nebivolol for rate control and Eliquis for anticoagulation. Heart rates have been controlled Echocardiogram showed normal LV systolic function. She does have diastolic dysfunction, severe LAE and moderate BILL. No significant valvular abnormalities. Mild pulmonary hypertension. Should be okay from cardiac standpoint for discharge. Follow-up with Pulmonary and PCP (2) Acute exacerbation of CHF (congestive heart failure): Qualifiers: Heart failure type: diastolic Qualified Code(s): I50.33 - Acute on chronic diastolic (congestive) heart failure Code(s): I50.9 - Heart failure, unspecified Status: Acute Assessment and Plan: Appears to be compensated. Continue spironolactone. Continue p.r.n. Lasix p.o. weight gain (3) Interstitial lung disease: Code(s): J84.9 - Interstitial pulmonary disease, unspecified Status: Acute Assessment and Plan: Pulmonology is following. On home oxygen. (4) Obstructive sleep apnea: Code(s): G47.33 - Obstructive sleep apnea (adult) (pediatric) Status: Acute Assessment and Plan: On CPAP. (5) Hypertension: Qualifiers: Hypertension type: primary hypertension Qualified Code(s): I10 - Essential (primary) hypertension Code(s): I10 - Essential (primary) hypertension Status: Chronic Assessment and Plan: Blood press controlled. Continue nebivolol and spironolactone Subjective Date/time seen: Date of service 02/16/25 10:53 Interval history: 79 y/o F with PMH of dementia, chronic respiratory failure, diastolic dysfunction, anemia, COPD, hypertension, fibromyalgia among other chronic medical conditions presents here with shortness of breath. 02/15 remaining in the upper 90%s on 2L NC. Plan to continue Rocephin, montelukast, and guaifenesin. Cardiology following for afib with RVR, rat controlling with beta blockers, anticoagulating. Pulmonary consulted for asthma exacerbation, completes 7 days azithomycin and ceftriaxone. Overnight oximetry on cpap 13, 5L bleed in overnight. Needs CPAP at night OK to discharge per Dr. Bland--New concentrator 5L at night, RT setting up. [employer] planning to deliver, can discharge when delivered. DC to SNF. Lives at [facility] with CT scan of neck no abnormalities Date of service 02/16: Resting comfortably in bed. 4 L nasal cannula. She wants to go home. AFib rate controlled. Review of Systems Review of Systems: All systems reviewed & are unremarkable except as noted in HPI and below Exam Const: General: comfortable, no acute distress, alert and awake Orientation/consciousness: patient oriented x3 HENMT: Head: normal to inspection Eyes: General: appearance normal, both eyes and all related structures Pupils: Equal, round and reactive pupils present Neck: Neck: normal visual inspection, supple and no JVD Carotids: normal carotid upstroke Resp: Effort & Inspection: normal respiratory effort Auscultation: crackles and rhonchi Cardio: Rate: regular rate Rhythm: abnormal rhythm irregularly irregular Heart sounds: S1 normal heart sound present, S2 normal heart sound present and no murmurs GI: Auscultation: normal bowel sounds Skin: General skin exam: normal color Neuro: General: patient oriented x3 Cranial nerves: Yes Equal, round and reactive pupils present Extrem: General: normal to inspection Other: No edema Psych: Appearance: grossly normal Mental Status: mental status grossly normal Objective Data Vital Signs Vital Signs: Vital Signs - 24 hr 02/15/25 11:15 02/15/25 11:16 02/15/25 11:17 Temperature Pulse Rate Respiratory Rate Blood Pressure Pulse Oximetry 86 L 88 L 93 Oxygen Delivery Room Air Nasal Cannula Nasal Cannula Oxygen Flow Rate 1 2 02/15/25 11:20 02/15/25 11:30 02/15/25 11:59 Temperature 36.8 C Pulse Rate 88 Respiratory Rate 16 Blood Pressure 122/73 Pulse Oximetry 91 94 94 Oxygen Delivery Nasal Cannula Nasal Cannula Oxygen Flow Rate 2 2 02/15/25 12:00 02/15/25 14:00 02/15/25 16:00 Temperature 36.7 C Pulse Rate 77 86 90 Respiratory Rate 16 Blood Pressure 109/78 Pulse Oximetry 98 Oxygen Delivery Oxygen Flow Rate 02/15/25 16:00 02/15/25 20:00 02/15/25 20:39 Temperature 36.8 C Pulse Rate 84 107 H 102 H Respiratory Rate 16 Blood Pressure 147/85 H Pulse Oximetry 97 Oxygen Delivery Oxygen Flow Rate 02/15/25 22:40 02/15/25 22:40 02/16/25 00:00 Temperature Pulse Rate 78 72 Respiratory Rate Blood Pressure Pulse Oximetry 95 94 Oxygen Delivery CPAP High Flow Nasal Cannula Oxygen Flow Rate 2 02/16/25 04:00 02/16/25 04:49 02/16/25 06:00 Temperature 36.6 C Pulse Rate 75 75 69 Respiratory Rate 16 Blood Pressure 123/70 Pulse Oximetry 95 98 Oxygen Delivery CPAP Oxygen Flow Rate 02/16/25 08:00 02/16/25 08:00 02/16/25 09:12 Temperature 36.4 C Pulse Rate 74 67 74 Respiratory Rate 12 Blood Pressure 127/7 L Pulse Oximetry 100 Oxygen Delivery Oxygen Flow Rate Intake/Output Intake/Output: Intake & Output 02/13/25 02/14/25 02/15/25 02/16/25 23:59 23:59 23:59 23:59 Intake Total 1020 1890 1200 480 Output Total 2210 1300 800 700 Balance -1190 590 400 -220 Meds/Results Medications: Active Medications Generic Name Dose Route Start Last Admin Trade Name Freq PRN Reason Stop Dose Admin Acetaminophen 650 mg 02/10/25 19:39 Acetaminophen 325 Mg Tablet PO Q6H PRN Mild Pain (1-3) or Fever Albuterol 2.5 mg 02/12/25 12:50 02/12/25 16:50 Albuterol Sulfate Neb 2.5 Mg/3 Ml Inh INHALATION 2.5 mg Q6-8H PRN Administration Shortness Of Breath Or Wheezing Amlodipine Besylate 10 mg 02/13/25 09:00 02/16/25 09:13 Amlodipine Besylate 10 Mg Tablet PO 10 mg DAILY VIN Administration Apixaban 5 mg 02/15/25 21:00 02/16/25 09:11 Apixaban 5 Mg Tablet PO 5 mg Q12HR VIN Administration Aspirin 81 mg 02/13/25 09:00 02/16/25 09:11 Aspirin 81 Mg Enteric Tablet PO 81 mg QAM VIN Administration Benzonatate 100 mg 02/10/25 19:39 Benzonatate 100 Mg Capsule PO TID PRN Cough Diclofenac Sodium 1 applic 02/12/25 12:50 Diclofenac Sodium 1% 100 Gm Gel (*Bkc) TOPICAL QID PRN Pain Docusate Sodium 100 mg 02/12/25 17:00 02/16/25 09:12 Docusate Sodium 100 Mg Capsule PO 100 mg BID VIN Administration Donepezil HCl 5 mg 02/12/25 21:00 02/15/25 22:47 Donepezil Hcl 5 Mg Tablet PO Not Given QHS VIN Fish Oil 1 gm 02/13/25 09:00 02/16/25 09:11 [place] 3 Polyunsat Fatty Acids 1 Gm Cap PO 1 gm QAM VIN Administration Fluoxetine HCl 20 mg 02/12/25 13:00 02/16/25 09:11 Fluoxetine Hcl 20 Mg Capsule PO 20 mg TID VIN Administration Fluticasone/Umeclidinium/Vilanterol 1 puff 02/15/25 09:25 Fluticasone/Umeclidin/Vilanter 200-62.5-25 Mcg Ellipta INHALATION DAILYRT [facility] Folic Acid 1 mg 02/13/25 09:00 02/16/25 09:11 Folic Acid 1 Mg Tablet PO 1 mg DAILY VIN Administration Furosemide 20 mg 02/12/25 12:50 Furosemide 20 Mg Tablet PO QPM PRN weight gain Gabapentin 300 mg 02/12/25 14:00 02/16/25 06:39 Gabapentin 300 Mg Capsule PO Not Given Q8HR [facility] Guaifenesin 1,200 mg 02/13/25 21:00 02/16/25 09:13 Guaifenesin 12 Hr 600 Mg Tabcr PO 1,200 mg Q12HR VIN Administration Ceftriaxone Sodium 1 gm/ 50 mls @ 100 mls/hr 02/11/25 17:00 02/15/25 17:50 Sodium Chloride IVPB 02/16/25 23:59 100 mls/hr Q24H VIN Administration Levothyroxine Sodium 150 mcg 02/13/25 06:30 02/16/25 06:39 Levothyroxine Sodium 150 Mcg Tablet PO Not Given DAILY@0630 [facility] Lidocaine 1 patch 02/13/25 09:00 02/16/25 09:11 Lidocaine 5% Patch TOPICAL 1 patch DAILY VIN Administration Loratadine 10 mg 02/12/25 12:50 Loratadine 10 Mg Tablet PO DAILY PRN allergy symptoms Montelukast Sodium 10 mg 02/13/25 09:00 02/16/25 09:11 Montelukast Sodium 10 Mg Tablet PO 10 mg DAILY VIN Administration Nebivolol 10 mg 02/13/25 09:00 02/16/25 09:12 Nebivolol Hcl 5 Mg Tablet PO 10 mg DAILY VIN Administration Home Med ( 1 tab 02/14/25 17:00 02/16/25 09:13 Vibegron 75 Tab) PO 03/16/25 16:59 1 tab DAILY VIN Administration Pantoprazole Sodium 40 mg 02/12/25 21:00 02/16/25 09:11 Pantoprazole 40 Mg Tablet PO 40 mg Q12HR VIN Administration Perflutren Lipid Microsphere 0 ml 02/13/25 14:04 Perflutren Lipid Microspheres 1.5 Ml Vial Diluted To 10 Ml Total Volume IV PUSH 02/16/25 14:04 ONCE PRN adequate visualization Protocol Pravastatin Sodium 40 mg 02/13/25 09:00 02/16/25 09:12 Pravastatin Sodium 20 Mg Tablet PO 40 mg DAILY VIN Administration Spironolactone 25 mg 02/13/25 09:00 02/16/25 09:13 Spironolactone 25 Mg Tablet PO 25 mg DAILY VIN Administration Telmisartan 40 mg 02/12/25 21:00 02/16/25 09:11 Telmisartan 40 Mg Tablet PO 40 mg Q12HR VIN Administration Vitamin D 50 mcg 02/13/25 09:00 02/16/25 09:11 Cholecalciferol (Vitamin D3) 125 Mcg (5,000 Units) Tablet PO 50 mcg DAILY VIN Administration Radiology Results: ITS Impressions Chest X-Ray 02/10/25 16:03 Impression: CHF. Superimposed probable pneumonia. The findings appear progressed compared to the previous study. Chest CTA 02/13/25 15:24 IMPRESSION: 1. No evidence of pulmonary emboli. No acute abnormalities of thoracic aorta. 2. Emphysematous lungs. Mild groundglass opacity of lung bases due to mild congestive changes. No pleural or pericardial effusion. 3. Severe scoliosis and postsurgical changes with degenerative disc disease of thoracolumbar spine. Venous Doppler Study 02/13/25 17:12 Impression: Negative for DVT. Neck/Chest CT 02/15/25 11:44 IMPRESSION: 1. No acute process involving the trachea identified; no evidence of tracheobronchomalacia on this exam. There is calcification throughout the tracheal air column and bronchial passages which is chronic and benign. 2. Other findings as above including a large central and main pulmonary arteries suggesting pulmonary arterial hypertension; interstitial lung pattern consistent with fibrosing form of nonspecific interstitial pneumonitis or possible mild UIP. Groundglass opacification could represent alveolar fibrosis versus superimposed acute atypical inflammatory/infectious pneumonitis. Labs Labs: Laboratory Results - last 24 hr 02/14/25 02/16/25 05:52 04:04 WBC 12.9 H RBC 3.11 L Hgb 9.8 L Hct 29.4 L MCV 94.5 MCH 31.5 MCHC 33.3 RDW 14.0 Plt Count 148 L MPV 11.3 H Immature Gran % (Auto) 1.9 H Neut % (Auto) 69.6 Lymph % (Auto) 11.9 L [place] % (Auto) 16.1 H Eos % (Auto) 0.3 Baso % (Auto) 0.2 Lymph # (Auto) 1.54 [place] # (Auto) 2.1 H Eos # (Auto) 0.0 Baso # (Auto) 0.0 Abs Immat Gran (auto) 0.25 H Absolute Neuts (auto) 9.0 H Absolute Nucleated RBC 0.000 Nucleated RBC % 0.0 Sodium 126 L Potassium 3.2 L Chloride 91 L Carbon Dioxide 31 H Anion Gap 4 BUN 30 H Creatinine 0.98 Estim Creat Clear Calc 43 Estimated GFR 54 L Glucose 96 Calcium 9.3 Total Bilirubin 0.9 AST 54 H ALT 45 H Alkaline Phosphatase 68 Total Protein 6.3 Albumin 3.7 Aldolase 8.0 CCP IgG/IgA Ab 8 M.pneumoniae IgM Titer <770
[2025-02-16] MEDS: GABAPENTIN 300 MG CAPSULE PO (13:14)
[2025-02-18 13:08] LABS: ANA by IFA Rfx Titer/Pattern Positive (.); ANA by IFA Rfx YES YES
--- NOTE | 2025-02-27 05:40 | P.DS_ITS ---
DS: Admitting Diagnosis Discharge Date 02/16/25 Admitting Diagnosis Acute respiratory failure Pneumonia DS: Discharge Diagnosis Discharge Diagnosis (1) Acute exacerbation of CHF (congestive heart failure): Qualifiers: Heart failure type: diastolic Qualified Code(s): I50.33 - Acute on chronic diastolic (congestive) heart failure Code(s): I50.9 - Heart failure, unspecified Status: Acute (2) Acute hyponatremia: Code(s): E87.1 - Hypo-osmolality and hyponatremia Status: Acute DS: Summary Hospital Course Reason for hospitalization: Copied from HPI 02/10 79 y/o F with PMH of dementia, chronic respiratory failure, diastolic dysfunction, anemia, COPD, hypertension, fibromyalgia among other chronic medical conditions presents here with shortness of breath. The patient presents here from [facility] on 02/10 for further evaluation of shortness of breath. HPI obtained through the patient report and the patient's . Per the patient's has been she had an asthma exacerbation on (02/07). She was treated with a nebulizer and they thought it had improved that day. However she developed shortness of breath the next day on Tuesday (02/08). Her has been giving her nebulizers every 6 hours while she is awake for the past few days. despite this intervention she has continued to have worsening shortness of breath. SOB is accompanied by a productive cough, sputum production as intermittent and scant. She has a past medical history significant for asthma, COPD, and chronic respiratory failure on 2L NC at baseline. for the patient's , any time she would exert herself such as ambulating her oxygen for drop into the 80s despite compliance with her chronic O2. Additionally has had mild lower extremity edema that has developed within the last 24 hours. Initial VS at presentation: HR 63, R 30, 95% on 4 L nasal cannula, current BP 117/76. ED workup showed: No leukocytosis, hemoglobin 8.5 (near baseline), normal coags, ABG with no significant derangements, sodium 128 (previously 131 in October of 2024, chronic), creatinine 0.79 and GFR >60, BNP 3760. CXR showed CHF with superimposed probable pneumonia. Hospital Course: 79 y/o F with PMH of dementia, chronic respiratory failure, diastolic dysfunction, anemia, COPD, hypertension, fibromyalgia among other chronic medical conditions presents here with shortness of breath. 02/15 remaining in the upper 90%s on 2L NC. Plan to continue Rocephin, montelukast, and guaifenesin. Cardiology following for afib with RVR, rat controlling with beta blockers, anticoagulating. Pulmonary consulted for asthma exacerbation, completed 7 days azithomycin and ceftriaxone. Overnight oximetry on cpap 13, 5L bleed in overnight. Discharged with CPAP at night, new concentrator 5L at night. RT set up, [employer] delivered. Pulmonary followed during admission. DC's to SNF. Lives at [facility] with Asthma with exacerbation: Oxygen requirement: 2L NC (at baseline) Chest XR CHF. Superimposed probable pneumonia. The findings appear progressed compared to the previous study. * ABG * Current treatment: duoneb and steroid q 6 hr * Pulmonology consulted - following * Continue Solu-Medrol 60 mg IV q.6 hours, DuoNebs q.6 hours, Singulair 10 mg q.day * Pending respiratory panel, urine for Legionella/pneumococcal antigen and mycoplasma IgM * Continue Rocephin, montelukast, and guaifenesin. (2) Acute and chronic respiratory failure: Qualifiers: Respiratory failure complication: hypoxia Qualified Code(s): J96.21 - Acute and chronic respiratory failure with hypoxia Code(s): J96.20 - Acute and chronic respiratory failure, unspecified whether with hypoxia or hypercapnia Status: Acute Assessment and Plan: Acute on chronic respiratory failure. At baseline requires 2 L nasal cannula at all times. Now requiring 4 L nasal cannula to maintain O2 sat greater than 92%. Subsequently placed on BiPAP for work of breathing. Initial ABG in the ED showed no significant derangements. Workup/clinical picture concerning for CHF exacerbation, pneumonia, and COPD exacerbation. * Lasix 40 mg daily for CHF exacerbation * broad-spectrum antibiotics and supportive care for pneumonia * started on BiPAP in the ED on 02/10, continued inpatient * schedule DuoNebs and prednisone for COPD exacerbation * continue supplemental oxygen to maintain O2 sat greater than 92%, may wean to baseline O2 requirement as tolerated * Off BIPAP, now back on 2L NC which is her baseline * Pulmonology following * D-dimer 0.7 * Chest CTA negative for evidence of PE * Bilateral lower extremity venous Doppler: Negative for DVT Pneumonia: CXR concerning for CHF in superimposed probable pneumonia (Bilateral infiltrates). reported productive cough. No nausea, vomiting, diarrhea, fever, chills. No leukocytosis. Did not meet SIRS criteria. * started on ceftriaxone and azithromycin 02/10 * supportive care including Mucinex, Tessalon Perles, Tylenol * viral PCR negative on 02/10 * ContinuedABX Acute exacerbation of CHF (congestive heart failure): CXR concerning for moderate pulmonary venous congestion consistent with CHF exacerbation. History of diastolic dysfunction. Last echo in 2022 which showed hyperdynamic systolic function with an estimated EF greater than 70%, grade 1 diastolic dysfunction, LA mildly enlarged, no pulmonary hypertension, mild AV sclerosis. Reported new swelling x1 day prior to arrival. BNP elevated upon admission. * Echocardiogram 02/13/25: EF 55-60%, severe enlargement left atrial chamber, moderate enlargement right atrial chamber, mild pulmonary hypertension, trace AVR/TVR, mild MVR * Lasix 40 mg daily, 1st dose on 02/10 * monitor daily weights and I&Os * Overall -6.1L since admission * monitor renal function Interstitial lung disease: Noted on CT scan 10/02. Followed by Pulmonary during admission. Started on IV steroids and changed to PO * PFTs on not 24 consistent with mild restrictive abnormality with a FEV1 of 1.68 L with significant decrease in FEV 1 with repeat PFTs on 12/08 Hypertension: * chronic, stable. * continued home medications * monitor Hypothyroidism: CT scan of neck no abnormalities * Stable * TSH 0.713 in October of 2024 * continued Synthroid NBA on CPAP: * set up home CPAP as noted Status at Discharge Cognitive/behavioral status at discharge: A&Ox3 Time Spent with Patient Time attestation: Total time spent providing and/or coordinating discharge services: Exam Narrative: Const: General: cooperati ve, healthy appear ing and comfortabl e Orientation/con sciousness: orient ed to person, orie nted to place and oriented to time HENMT: Head: normal to in spection Ears: he aring grossly norm al bilaterally Eyes: General: appearanc e normal, both eye s and all related structures Neck: Neck: normal visua l inspection Chest: Chest palpation & inspection: normal inspection of the chest Resp: Effort & Inspectio n: normal respirat ory effort and abl e to speak in comp lete sentences Au scultation: crackl es, no rales, no r honchi, no wheezes and lung sounds n ot diminished Oth er: Bibasilar dry inspiratory cr ackles left greate r than right. No wheezing. Cardio: Jugular venous dis tension: no JVD GI: Inspection: normal to inspection Skin: General skin exam: normal color Neuro: General: oriented to person, oriente d to place and baldomero ented to time Extrem: General: normal to inspection Other : Trace edema, this has improved per the . Psych: Appearance: grossl y normal Discharge Plan Discharge Attending physician on discharge: Karyn Santos Consulting providers: Marco Guzman; Tad Bland; Beltran Carlson; Akanksha Kellogg; Alonzo Sidhu; Eda Richardson; Jens Gabriel; Jose Garcia; Clara Hallman; Timmy Kumar Discharging Clinician: Karyn Santos Anticipated Discharge Date/Time: 02/16/25 11:38 Patient Disposition: NH Halfway/Asst Living Activity: july shower Diet: heart healthy Discharge Instructions: Follow up with your PCP in 1-2 weeks. Follow up with Dr. Bland, pulmonary in 3-4 weeks. Cardiology follow up as needed Home O2 Eval - Oxygen: 2 L with rest and 2 L with activity, none at rest When she naps or sleeps: CPAP 13 with 5 L bleed in. She received a concentrator that can provide 5 L at night from [employer]. Continue consistent fluid intake. Weight daily. Signs of increased fluid are swelling in the legs, weight gain of 2-3 pounds in a day, 5-7 pounds in a week. OK to give 1 dose of furosemide twice a day as needed. If you need to give furosemide regularly, talk to your PCP about checking labs to monitor potassium and magnesium. Signs of dehydration are dizziness when standing, fatigue, and blood pressure that is lower than normal. Blood pressure less than 90 should be rechecked and evaluated in the hospital. Patient Instructions: Antibiotic Form, COPD (Chronic Obstructive Pulmonary Disease) (GEN), Hypoxia (GEN), Pneumonia (GEN) Patient Language: [place] Stand Alone Forms: General Discharge Information Follow-up/Referrals: Beltran Carlson MD [Physician, Interventional Cardiology] - Call for Appointment Tad Bland MD [Physician, Pulmonology] - 3 Weeks Kristofer Key DO [Primary Care Provider, Internal Medicine] - 2 Weeks Discharge Medications: New Eliquis 5 mg Tablet 5 mg PO Q12HR Qty: 180 2RF benzonatate 200 mg capsule 200 mg PO TID PRN (Reason: cough) 7 Days Qty: 20 2RF Continued docusate sodium 100 mg capsule 100 mg PO BID telmisartan 40 mg tablet 40 mg PO BID diclofenac sodium [Arthritis Pain (diclofenac)] 1 % gel 4 g topical QID PRN (Reason: Pain) Rx Instructions: apply to single knee, ankle, foot; for foot includes sole/toes/top of foot spironolactone 25 mg tablet 25 mg PO DAILY albuterol sulfate 2.5 mg /3 mL (0.083 %) solution for nebulization 2.5 mg inhalation Q6-8H PRN (Reason: shortness of breath or wheezing) naloxone 4 mg/actuation spray,non-aerosol 4 mg intranasal Q2-3M PRN (Reason: opioid overdose) Qty: 2 1RF Rx Instructions: spray 1 dose into ONE nostril; repeat every 2-3 minutes until responsive, alternating nostrils w each dose until help arrives albuterol sulfate 90 mcg/actuation HFA aerosol inhaler 1 - 2 puff inhalation Q4-6H PRN (Reason: shortness of breath or wheezing) Qty: 25.5 3RF (DME) oxygen 0 .ROUTE .MEDSUPPLY Patient Comments: 2L (DME) CPAP 0 .ROUTE .MEDSUPPLY loratadine [Claritin] 10 mg tablet 10 mg PO DAILY PRN (Reason: allergy symptoms) nystatin 100,000 unit/gram powder 1 applic topical BID PRN (Reason: rash) Qty: 60 0RF aspirin 81 mg capsule 81 mg PO DAILY Gemtesa 75 mg tablet 75 mg PO DAILY cholecalciferol (vitamin D3) 50 mcg (2,000 unit) capsule 2,000 unit PO DAILY [place]-3 350 mg-235 mg- 90 mg-597 mg capsule,delayed release(DR/EC) 1 cap PO DAILY Trelegy Ellipta 200-62.5-25 mcg blister with device 1 inh inhalation DAILY Qty: 180 3RF Rx Instructions: Rinse mouth and spit after each use lidocaine 5 % adhesive patch,medicated See Rx Instructions .ROUTE .COMPLEX Qty: 90 3RF Dose Instruction: APPLY 1 PATCH TO LOW BACK FOR 12 HOURS PER DAY Rx Instructions: APPLY 1 PATCH TO LOW BACK FOR 12 HOURS PER DAY amlodipine 10 mg tablet 10 mg PO DAILY Qty: 90 1RF fluoxetine 20 mg capsule 20 mg PO TID Qty: 270 1RF gabapentin 300 mg capsule 300 mg PO TID Qty: 270 1RF montelukast 10 mg tablet 10 mg PO DAILY Qty: 90 1RF pantoprazole 40 mg tablet,delayed release (DR/EC) 40 mg PO BID Qty: 180 1RF pravastatin 40 mg tablet 40 mg PO DAILY Qty: 90 1RF levothyroxine [Synthroid] 150 mcg tablet 150 mcg PO DAILY Qty: 90 1RF donepezil 5 mg tablet 5 mg PO QHS Qty: 90 1RF Discontinued furosemide [Lasix] 20 mg tablet 20 mg PO QPM PRN (Reason: weight gain) guaifenesin [Mucinex] 600 mg tablet extended release 12hr 600 mg PO Q12H PRN (Reason: congestion) No Action lidocaine HCl 10 mg/mL (1 %) solution 0.5 ml subcut ONCE PRN (Reason: not used) Qty: 2 0RF prednisone 20 mg tablet 40 mg PO DAILY 4 Days Qty: 8 0RF metoprolol succinate 50 mg Tablet Extended Release 24 Hr 50 mg PO QAM Qty: 30 0RF furosemide 20 mg Tablet 20 mg PO DAILY Qty: 30 0RF sodium chloride 1,000 mg tablet,soluble 500 mg PO DAILY Qty: 30 0RF potassium chloride [Klor-Con M20] 20 mEq tablet,ER particles/crystals 20 meq PO DAILY Qty: 30 0RF folic acid 1 mg tablet 1 mg PO DAILY Qty: 90 1RF Date of admission: 02/11/25 11:53 Primary Care Provider: Kristofer Key Admitting Provider: Cornelio Chi Attending physician on admission: Karyn Santos Condition: Serious Hospitalist MIPS Heart Failure (Exclusion) Patient has history of Heart Transplant or Left Ventricular Assistive Device?: No IF YES, STOP HERE Heart Failure (Qualifier) Patient has current or prior documentation of LVEF less than or equal to 40%, or mod/servere depressed LVSF?: No IF NO, STOP HERE
== END 2025-02-16 15:30 | DRG 193 ==
LOC: ANHED 16:53 → ANHIMU 17:32
PROVIDERS: Internal Medicine Pulmonary Disease; Physician Assistant; Student in an Organized Health Care Education/Training Program; Admitting Provider Internal Medicine; Emergency Provider Emergency Medicine; PCP Internal Medicine; Visit Provider Nurse Practitioner Acute Care
DX: J18.9 Pneumonia, unspecified organism (principal); I50.33 Acute on chronic diastolic (congestive) heart failure; J96.21 Acute and chronic respiratory failure with hypoxia; J45.901 Unspecified asthma with (acute) exacerbation; D64.9 Anemia, unspecified; E03.9 Hypothyroidism, unspecified; F03.90 Unspecified dementia, unspecified severity, without behavioral disturbance, psychotic disturbance, mood disturbance, and anxiety; G47.33 Obstructive sleep apnea (adult) (pediatric); I48.91 Unspecified atrial fibrillation; I11.0 Hypertensive heart disease with heart failure; J41.0 Simple chronic bronchitis; M79.7 Fibromyalgia; Z87.891 Personal history of nicotine dependence; Z99.81 Dependence on supplemental oxygen; Z20.822 Contact with and (suspected) exposure to COVID-19; Z79.01 Long term (current) use of anticoagulants; Z79.82 Long term (current) use of aspirin; Z99.89 Dependence on other enabling machines and devices; Z85.828 Personal history of other malignant neoplasm of skin; Z98.1 Arthrodesis status
CPT/HCPCS: 0202U; 36415; 36600; 70490; 71045; 71250; 71275; 80048; 80053; 81001; 82085; 82103; 82104; 82375; 82550; 82805; 83050; 83880; 84145; 85018; 85025; 85055; 85380; 85610; 85730; 86037; 86038; 86140; 86200; 86331; 86364; 86430; 86606; 86609; 86671; 86738; 87040; 87449; 87637; 87899; 93005; 93306; 93970; 94002; 94003; 94618; 94640; 94762; 96372; 96374; 97110; 97162; 97165; 97530; 99285; A9270; G0378; J0456; J0616; J0696; J1650; J1938; J2919; J7050; J7512; Q9967

== ENCOUNTER 2025-02-25 00:31 | Inpatient (IN) | payer MEDICARE, OTHER, SELFPAY ==
[2025-02-25] VITALS (25 sets, daily range): BP systolic 113–136; BP diastolic 57–75; PULSE 67–90; RESP 15–26; TEMP 36.3–37; O2SAT 88–100; BMI 36.0
--- NOTE | ~2025-02-25 | XR_ITS ---
MODIFIED ESOPHAGRAM HISTORY: Coughing with liquids TECHNIQUE: Modified barium esophagram was performed on 02/27/2025. I administered fluoroscopy and performed the exam with speech pathologist. Patient was seated for lateral fluoroscopic imaging for ingestion of thin liquids, pudding, solids and quantified amounts, followed by thin liquids in uncontrolled amounts. This was recorded on tape. A single fluoroscopic spot image was also recorded. The DAP for this procedure was 3.142 Gycm2. The amount of fluoroscopy time used during this procedure was 2.1 minutes. FINDINGS: Oral stage: Adequate function. Pharyngeal stage: Reduced laryngeal elevation. There is laryngeal penetration without aspiration with thin, mild and moderately thickened liquids. Cervical/esophageal stage: Adequate function. IMPRESSION: Laryngeal penetration without aspiration. Please correlate with speech pathologist findings and specific feeding recommendations. Reviewed, dictated and finalized at location A. UITMENT CONSULTANT IMPRESSION: Laryngeal penetration without aspiration. Please correlate with sp eech pathologist findings and specific feeding recommendations.
--- NOTE | ~2025-02-25 | CT_ITS ---
CTA CHEST CLINICAL HISTORY: hemoptysis, R/O PE . COMPARISON: Chest x-ray 2 days prior TECHNIQUE: Helical CTA performed from thoracic inlet to upper abdomen IV contrast information not listed in PACS Coronal, sagittal reformats. Multiplanar MIPS CT images acquired with automatic exposure control for dose reduction DLP: 770 mGy-cm FINDINGS: Pulmonary arteries: No PE. Thoracic Aorta: No dissection or aneurysm. Heart/pericardium: Cardiomegaly. RV/LV ratio: Normal. Coronary artery calcification. Lungs/Pleura: Scattered geographic foci of groundglass opacity and traction bronchiectasis. Mild emphysema. Tracheobronchial tree: Patent. Nodes: No enlarged nodes. Small mediastinal and hilar nodes Bones: No acute bony abnormality. Old left rib fractures. Soft tissues: Unremarkable. Visualized upper abdomen: Unremarkable. IMPRESSION: 1. No PE. 2. Acute scattered bilateral pneumonitis. Reviewed, dictated and finalized at location R. NEERING EXECUTIVE
--- NOTE | ~2025-02-25 | XR_ITS ---
EXAMINATION: XR chest 1V portable DATE: 03/01/2025 07:38 INDICATION: Hypoxia TECHNIQUE: frontal view of the chest was obtained. COMPARISON: Chest radiograph dated 02/25/[address] dated 02/27/2025 FINDINGS: No significant change in scattered bilateral patchy airspace opacities throughout all lung zones most prominent in the right upper and left lower lung zones. No pleural effusion or pneumothorax. Mild cardiomegaly. S-shaped thoracolumbar scoliosis with severe spondylosis. Incompletely visualized bryant and pedicle screw fixation for posterior spinal fusion projecting over the upper lumbar spine. IMPRESSION: 1. Unchanged scattered bilateral airspace opacities which could represent pneumonia or pulmonary edema. 2. Cardiomegaly. Reviewed, dictated and finalized at location A. ANCE OFFICER IMPRESSION: 1. Unchanged scattered bilateral airspace opacities which could represent pneum onia or pulmonary edema. 2. Cardiomegaly.
--- NOTE | ~2025-02-25 | XR_ITS ---
EXAMINATION: XR chest 1V portable DATE: 02/25/2025 00:55 INDICATION: Shortness of breath TECHNIQUE: frontal view of the chest was obtained. COMPARISON: Chest radiograph dated 02/10/[address] dated 02/15/2025 FINDINGS: Persistent interstitial and airspace opacities in the left mid to lower lung zone and more subtly in the right upper and right lower lung zones which could be related to chronic interstitial lung disease, mild pulmonary edema or pneumonia. No pleural effusion or pneumothorax. Heart size within normal limits for AP technique. S-shaped thoracic scoliosis with severe spondylosis. Is also severe bilateral glenohumeral osteoarthritis. IMPRESSION: 1. Persistent interstitial and mild airspace opacities in both lungs, left greater than right, which is most likely related to chronic initial lung disease with differential including recurrent mild pulmonary edema or pneumonia. Reviewed, dictated and finalized at location A. DENTIAL ASSISTANT IMPRESSION: 1. Persistent interstitial and mild airspace opacities in both lungs, left grea ter than right, which is most likely related to chronic initial lung disease wi th differential including recurrent mild pulmonary edema or pneumonia.
--- NOTE | ~2025-02-25 | XR_ITS ---
XR chest 1V portable 03/04/2025 04:30 Indication: Hypoxia Procedure: AP portable chest Comparison: Comparison to multiple prior studies sequentially, with oldest reviewed study dated 10/17/2024. Findings: Cardiomegaly with pulmonary edema. No significant change. No pleural effusion. No pneumothorax. Impression: 1: Cardiomegaly with pulmonary edema. Reviewed, dictated and finalized at location O. NERY OPERATOR VISBREAKING Impression: 1: Cardiomegaly with pulmonary edema.
--- NOTE | ~2025-02-25 | CT_ITS ---
CT HEAD NON-CONTRAST Clinical History: anisocoria, presumably new Comparison: 10/17/2024 Technique: Unenhanced axial images skull base to vertex Coronal, sagittal reformats CT images acquired with automatic exposure control for dose reduction DLP: 757 mGy-cm Findings: Age-related atrophy. Chronic white matter microvascular ischemic changes. Sulci, ventricles: Unremarkable. No intracerebral hemorrhage. No evidence acute territorial infarct. No mass effect, midline shift. Bony calvarium intact. Small inner table exostosis right frontal. Visualized paranasal sinuses: Clear. Mastoid air cells: Clear. IMPRESSION: 1. No acute intracranial findings. Reviewed, dictated and finalized at location R. SION CHAIR
--- NOTE | 2025-02-25 00:38 | ECG_ITS ---
Test Date: 2025-02-25 00:41:45 Measurements Intervals [place] Rate: 78 P: 0 NH: 0 QRS: 36 QRSD: 94 T: 43 QT: 425 QTc: 486 Interpretive Statements ATRIAL FLUTTER/TACHYCARDIA BASELINE ARTIFACT- I, II, AVR, AVL ABNORMAL ECG Compared to ECG 02/14/2025 15:37:27 ATRIAL FIBRILLATION NO LONGER PRESENT Electronically Signed On 02-25-2025 06:45:39 PEDIATRIC NEPHROLOGIST by Alonzo Sidhu D.O.
[2025-02-25 00:50] LABS: Alveolar/Arterial O2 Gradient 80.3 mmHg; Fractional Inspired Oxygen 28 %; HCO3 ABG 20.7 mEq/l (22.0-26.0); Oxygen Content ABG 11.6 %vol (16.0-22.0); Oxygen Saturation ABG 98.0 % (95.0-100.0); PO2 ABG 91.3 mmHg (80.0-100.0); PO2 FiO2 Ratio Arterial Blood 3.26 %
[2025-02-25 00:51] LABS: Liters per Minute 2.0 LPM; Modified Allen's Test Pass; Site Drawn LEFT RADIAL
[2025-02-25] MEDS: IPRATROPIUM 0.5 MG/ALBUTEROL SULFATE 2.5 MG (BASE) AMPUL.NEB 3 ML INHALATION ×4 (00:56→20:12)
--- OUTSIDE RECORDS SUMMARY | 2025-02-25 01:06 | XMS_ITS | Patient Health Record ---
Author Organization [facility] Address [address] [facility] [address] [place] [address] Care Team Providers Care Continuous Absorption Process Operator Name Role Phone Do Chan Unavailable [phone] Reason For Referral No Information Medications Medication SIG (Take, Route, Frequency, Duration) Notes Start Date End Date Status Diclofenac Sodium 1% Gel Transdermal 06/16/2021 Active Furosemide 20 MG Tablet Oral 06/16/2021 Active Gabapentin 300 MG Capsule Oral 06/16/2021 Active NEBIVOLOL 5 MG TABLET *[facility] and Interaction Alerts* 06/16/2021 Active FLUoxetine HCl 20 MG Tablet Oral 06/16/2021 Active CHOLECALCIFEROL (VIT D3) 10 MCG/ML(400 UNIT/ML) ORAL SYRINGE(ORAL USE) *Reorder from [employer] for eRx and Interaction Alerts* 06/16/2021 Active amLODIPine Besylate 10 MG Tablet Oral 06/16/2021 Active Albuterol Sulfate 1.25 MG/3ML Nebulization Solution Inhalation 06/16/2021 Active Lidocaine *Pick strength-form from [facility] for eRX* 06/16/2021 Active Synthroid 175 MCG Tablet Oral 06/16/2021 Active Pantoprazole Sodium 40 MG Tablet Delayed Release Oral 06/16/2021 Active LACTOBACILLUS 40-BIFIDOBACT 3-S.THERMOPHILUS 100 BILLION CELL CAPSULE *Reorder from [facility] for eRx and Interaction Alerts* 06/16/2021 Active Docusate Sodium 100 MG Capsule Oral 06/16/2021 Active Social History Social History Additional Details Category Social Info Options Details Migrated Social History Migrated Social History Alcohol Intake: Occasional 06/04/2021,Tobacco Years: Former smoker 05/15/2021 Plan Of Treatment No Information Insurance Providers Payer Name Payer Address Payer Phone Subscriber Number Group Number Insured Name Patient Relationship to Insured Coverage Start Date Coverage End Date Medicare-I l Medicare [address] [place] [phone] [id number] FREDI FOFANA Self - patient is the insured For Life [address] [place] [address] [id number] YURY FOFANA Spouse - patient is the spouse of the insured Medical (General) History Surgical History Surgery Date(Month/Year) Cataract surgery (48585) Removal of gallbladder (64549) Hysterectomy (21582) Any surgical history Other
--- OUTSIDE RECORDS SUMMARY | 2025-02-25 01:06 | XMS_ITS | Patient Health Record ---
Author Organization [facility] Address [address] [place] [address] Care Team Providers Care Mechanical Estimator Name Role Phone AFA, Internal Medicine [employer] Primary Care Provide r Unavailable Kristofer Frost DO Unavailable [phone] Allergies Allergen (clinical drug ingredient) Drug/Non Drug [...] Active Metoprolol Tartrate 25-37.5mg Tab As Directed ([facility]) 07/17/2003 Active Trelegy Ellipta 100-62.5-25 MCG/INH 1 puff Inhalation Once a day Active PROzac 20 MG 3 capsules Orally On ce a day ([facility]) 07/16/2003 Active amLODIPine Besylate 2.5 MG 1 tablet Oral ly Once a day; Duration: 30 day(s) Active Neurontin 600 MG 1 tablet Orally tid ([facility]) 07/16/2003 Active Synthroid 175 MCG Orally 1 TABLET DAILY ([facility]) 07/16/2003 Active Pantoprazole Sodium 40 MG 1 [...] Status W/U Status Risk Notes Problem Fibromyalgia (640494900) Fibromyalgia (M79.7) Active confirmed Problem Chronic pain (98624580) Chronic Pain (G89.29) Active confirmed Problem Localized, primary osteoarthritis of the hand (194807090) Osteoarthritis, primary, 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) Active confirmed Problem Collagen disease (53975201) Connective Tissue Disorder, Systemic involvement, 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
--- OUTSIDE RECORDS SUMMARY | 2025-02-25 01:06 | XMS_ITS | Clinical Summary ---
Author Organization [facility] Address [address] [place] [address] Care Team Providers Care Gasoline Engine Inspector Name Role Phone Unavailable Primary Care Provider Unavailabl e Source Comments [facility],non-owned Affiliates and Associated Physician Practices is amultiple site organization consisting of ambulatory clinics and hospital sitesin [place], [place], [place] and [place]. This disclosure is being madepursuant to the Care Everywhere program and may not contain all information available regarding this patient. Last updated 17.[facility] [employer] Social History Tobacco Use Types Packs/Day Years Used Date Smoking Tobacco: Never Assessed Comments Unknown Sex and Gender Information Value Date Recorded Sex Assigned at Not on file Legal Sex Female 7:05 AM CDT Gender Identity Not on file Sexual Orientation Not on file Plan of Treatment Health Maintenance Due Date Last Done Comments BONE DENSITY TESTING 1945 MEDICARE AWV 12 MONTHS 1945 DTAP/TDAP/TD VACCINES (1 - Tdap) 09/19/1962 PNEUMOCOCCAL VACCINE 50+ (1 of 1 - PCV) 09/19/1993 ZOSTER VACCINE (1 of 2) 09/19/1993 Respiratory Syncytial Virus (RSV) Vaccine Pt: or over 60 yrs (1 - 1-dose 75+ series) 09/19/2018 DEPRESSION SCREENING 03/07/2024 COVID-19 VACCINE (1 - 2024-2 6 season) 2024 INFLUENZA VACCINE (#1) 2024 HEPATITIS B VACCINE Aged Out No longe r eligible based on patient's age to complete this topic HIB VACCINE Aged Out No longer eligi ble based on patient's age to complete this topic HPV VACCINE Aged Out No longer eligi ble based on patient's age to complete this topic MENINGOCOCCAL (Group B) VACC INE SHARED DECISION-MAKING Aged Out No longer eligibl e based on patient's age to complete this topic MENINGOCOCCAL GROUPS A/C/Y/W VACCINE Aged Out No longer eligible b ased on patient's age to complete this topic Insurance MEDICARE SELF PAY NO INSURANCE Member Subscriber Plan / Payer (Ef fective for All Dates) Name:Marialuisa Darden Member ID:Not on file Relation to Subscriber:Not on file Name:MARIALUISA DARDEN Subscriber ID:Not on file (Home) Address: [address] [place] [address] Payer ID:Not on file Group ID:Not on file Type:Self Pay Address: [place], [place] * Guarantor: MARIALUISA DARDEN Account Type Relation to Patient Date of Phone Billing Address Personal/Family [address] [place] [address] MEDICARE Member Subscriber Plan / Payer (Ef fective for All Dates) Name:Katalina Marialuisa S Member ID:[id number] Relation to Subscriber:Self Name:Marialuisa Darden Subscriber ID:[id number] Payer ID:Not on file Group ID:Not on file Type:Medicare Address: [place] [phone] * Guarantor: MARIALUISA DARDEN Account Type Relation to Patient Date of Phone Billing Address Personal/Family [address] [place] [address] MEDICARE * Guarantor: MARIALUISA DARDEN Account Type Relation to Patient Date of Phone Billing Address Personal/Family [address] [place] [address] MEDICARE
--- OUTSIDE RECORDS SUMMARY | 2025-02-25 01:07 | XMS_ITS | Clinical Summary ---
Author Organization [facility] Address [address] [place] [address] Care Team Providers Care Railroad Dispatcher Name Role Phone Rachell Zuniga MD Primary Care Provider [phone] Allergies Active Allergy Reactions Criticality Noted Date [...] mg total) by mouth nightly 3 Active folic acid (FOLVITE) 1 mg tablet 5 Active HYDROmorphone, bulk, (DILAUDID) 100 % powder 0 5 Active Klayesta powder APPLY TOPICALLY TO AFFECTED AREA TWICE DAILY NEEDED FOR RASH 5 Active vibegron 75 mg tablet Take 75 mg by mouth 4 Active vitamins A,C,E-zinc-ziggy er (OCUVITE) 2,148 mcg-113 mg-45 mg-17.4mg tablet Take 2 tablets by mouth 5 Active spironolactone (ALDACTONE) 25 mg tablet Take 1 tablet (25 mg total) by mouth daily 90 tablet 3 5 Active telmisartan (MICARDIS) 40 mg tablet Take 1 tablet (40 mg total) by mouth 2 (two) times a day 180 tablet 3 5 Active amLODIPine (NORVASC) 10 mg tablet Take 1 tablet (10 mg total) by mouth daily 90 tablet 3 5 Active Active Problems Problem Noted Date Diagnosed Date Labile hypertension 09/25/2021 Chronic congestive heart failure 09/25/2021 Encounters Date Type Department Care Team Description 12/19/2024 12:00 PM CDT Office Visit [facility] Medicine Cardiology [address] [facility] [address] [place] [address] [place] [address] Sadia Pool NP Cardiomyopathy, unspecified type (HCC) (Primary Dx); Cardiovascular stress test abnormal; Chest pain, unspecified type; Chronic diastolic congestive heart failure (HCC); Labile hypertension from Last 3 Months Family History Medical History Relation Name Comments Hypertension Father Cancer Mother Relation Name Status Comments Father Mother Social History Tobacco Use Types Packs/Day Years Used Date Smoking Tobacco: Former Smokeless Tobacco: Never Comments Unknown Sex and Gender Information Value Date Recorded Sex Assigned at Not on file Legal Sex Female 10:30 AM CDT Gender Identity Female 12/03/2022 12:05 PM CDT Sexual Orientation Bisexual 12/03/2022 12 :05 PM CDT Last Filed Vital Signs Vital Sign Reading Time Taken Comments Blood Pressure 134/73 12/19/2024 12:07 PM CDT Pulse 57 12/19/2024 12:07 PM CDT Temperature - - Respiratory Rate - - Oxygen Saturation 92% 12/19/2024 12:07 PM CDT Inhaled Oxygen Concentration - - Weight 91.6 kg (202 lb) 12/19/2024 12:07 PM CDT Height 162.6 cm (5' 4) 12/19/2024 12:07 PM CDT Body Mass Index 34.67 12/19/2024 12:07 PM CDT Plan of Treatment Health Maintenance Due Date Last Done Comments Depression Screening 1945 Fall Risk Assessment 1945 Osteoporosis Screening-Bone Density Scan 1945 Hepatitis B Screening 09/19/1961 Well Visit 65+ 09/19/2008 DTaP/Tdap/Td Vaccine (1 - Tdap) 09/29/2022 3 Covid-19 Vaccine (2024-04 6 season) 2024 07/16/2024, 01/05/2023, 12/10/2021, Additional history exists Influenza Vaccine (#1) 2024 4, 12/05/2022, 12/10/2021 Pneumococcal vaccine 65+ Completed 017, 01/09/2016, 06/20/2012 Zoster Vaccine Completed 06/09/2020, 01/22/2020 Insurance MEDICARE [employer] Care Teams Railroad Dispatcher Relationship Specialty Start Date End Date Rachell Zuniga MD PCP - General Internal Medicine 06/22/21
[2025-02-25 01:08] LABS: Hematocrit 21.7 % (37.0-47.0); Hemoglobin 7.3 g/dL (12.0-15.0); Immature Granulocyte Percent A 4.3 % (0-0.5); Lymphocytes Absolute Auto 0.97 K/mm3 (0.9-3.2); Mean Corpuscular HGB Conc 33.6 g/dl (32-36); Mean Corpuscular Hemoglobin 30.8 pg (26-34); Mean Corpuscular Volume 91.6 fl (80-100); Nucleated Red Blood Cells Absolute Auto 0.000 K/mm3 (0.0-0.012); Nucleated Red Blood Cells Perc 0.0 % (0.0-0.2); Platelet Count Result 146 k/mm3 (150-375); Red Blood Count 2.37 M/mm3 (4.2-5.4); White Blood Count 11.1 K/mm3 (4.5-10.0)
[2025-02-25 01:19] LABS: Alanine Aminotransferase 25 U/L (6-35); Albumin Level 3.8 g/dL (3.5-5.1); Alkaline Phosphatase 79 U/L (38-126); Anion Gap 6 mmol/L (4-12); Aspartate Amino Transferase 26 U/L (14-36); Bilirubin,Total 0.9 mg/dL (0.2-1.3); Blood Urea Nitrogen 15 mg/dL (7-17); Calcium 9.0 mg/dL (8.4-10.2); Carbon Dioxide 23 mmol/L (22-30); Chloride 88 mmol/L (98-107); Estimated Glomerular Filt Rate 60; Glucose 94 mg/dL (65-110); Magnesium 1.5 mg/dL (1.6-2.3); NT Pro B Type Natriuretic Pept 7930 pg/mL (19.9-100); Potassium 4.3 mmol/L (3.4-5.0); Sodium 117 mmol/L (137-145); Total Protein 6.4 g/dL (6.3-8.2); Troponin I 0.013 ng/mL (0.000-0.034)
[2025-02-25 01:30] LABS: Influenza A QL RT-PCR Negative (Negative); Influenza B QL RT-PCR Negative (Negative); RSV RNA, RT-PCR Negative (Negative); SARS-CoV-2 RNA PCR Negative (Negative)
[2025-02-25 01:38] LABS: Procalcitonin 0.1 ng/mL
[2025-02-25 02:29] LABS: PCO2 ABG 23.8 mmHg (35.0-45.0)
--- NOTE | 2025-02-25 02:44 | ED.GENADULT ---
HPI - General Adult General Chief complaint: Shortness of Breath/Dyspnea Stated complaint: SOB since 1200 Time Seen by Provider: 02/25/25 00:34 History of Present Illness HPI narrative: Patient is a 79-year-old female who presents emergency department with chief complaint of shortness of breath and cough the patient is normally on 2 L nasal cannula baseline the patient was placed on BiPAP by EMS patient does have history of congestive heart failure also history of hyponatremia and has had metabolic encephalopathy in the past Related Data Home Medications ?Medication ?Instructions ?Recorded ?Confirmed ?Last Taken ?Type docusate sodium 100 mg capsule 100 mg PO BID 11/18/21 02/11/25 10/17/24 History diclofenac sodium 1 % topical gel 4 g topical QID PRN Pain 05/13/22 02/11/25 03/07/24 History (Arthritis Pain (diclofenac)) telmisartan 40 mg tablet 40 mg PO BID 05/13/22 02/11/25 10/17/24 History spironolactone 25 mg tablet 25 mg PO DAILY 06/15/22 02/11/25 10/17/24 History albuterol sulfate 2.5 mg/3 mL 2.5 mg inhalation Q6-8H PRN 12/28/22 02/11/25 03/20/24 History (0.083 %) solution for nebulization shortness of breath or wheezing aspirin 81 mg capsule 81 mg PO DAILY 03/08/24 02/11/25 03/07/24 History cholecalciferol (vitamin D3) 50 2,000 unit PO DAILY 03/08/24 02/11/25 10/17/24 History mcg (2,000 unit) capsule omega 3 350 mg-dha 235 mg-epa 90 1 cap PO DAILY 03/08/24 02/11/25 10/17/24 History mg-fish oil 597 mg capsule,delay rel ([place]-3) vibegron 75 mg tablet (Gemtesa) 75 mg PO DAILY 03/08/24 02/11/25 10/16/24 History CPAP 05/21/24 02/11/25 Unknown History Pain Pump 05/21/24 02/11/25 Unknown History loratadine 10 mg tablet (Claritin) 10 mg PO DAILY PRN allergy symptoms 05/21/24 02/11/25 Unknown History oxygen 05/21/24 02/11/25 Unknown History Allergies Allergy/AdvReac Type Severity Reaction Status Date / Time clindamycin Allergy Severe Chills Verified 02/11/25 11:46 diazepam Allergy Severe suicidal Verified 02/11/25 11:46 ideation levofloxacin (From Levaquin) Allergy Intermediate Itching Verified 02/11/25 11:46 cat dander Allergy Unknown Sinusitis Verified 02/11/25 11:46 dog dander Allergy Unknown Sinusitis Verified 02/11/25 11:46 feathers Allergy Unknown Sinusitis Verified 02/11/25 11:46 grass pollen Allergy Unknown Sinusitis Verified 02/11/25 11:46 house dust Allergy Unknown Sinusitis Verified 02/11/25 11:46 Rabbit Allergy Unknown Sinusitis Verified 02/11/25 11:46 tree and shrub pollen Allergy Unknown Sinusitis Verified 02/11/25 11:46 adhesive tape Allergy Redness of Verified 02/11/25 11:46 Skin silicone Allergy Unknown Verified 02/11/25 11:46 meperidine (From Demerol) AdvReac Hallucinati Verified 02/11/25 11:46 ng oxycodone (From Percocet) AdvReac Nausea Verified 02/11/25 11:46 propoxyphene AdvReac Nausea and Verified 02/11/25 11:46 Vomiting Review of Systems Review of Systems: A 10 system review of systems was completed on the patient and is negative except for what is stated in the HPI. Nursing and ancillary documentation was reviewed. [facility] Past Medical History Medical History Femur fracture, right Surgical screws Fracture, foot Right Metatarsal Anemia Undifferentiated connective tissue disease Depression with anxiety NBA on CPAP Dementia History of ARDS Diastolic dysfunction History of nuclear stress test History of abnormal electrocardiogram Genevieve's thyroiditis Rosacea w/ ocular involvement Depression History of rectocele History of migraine headaches Spondylosis of cervical spine Arthralgia H/O antinuclear antibodies intermittent +ABRAM to 1:320 Vascular disorder seronegative collagen disorder History of squamous cell carcinoma History of staph infection Chronic left shoulder pain arthritis; possibly inflammatory Fracture, rib Aftercare following finger joint replacement surgery Thyroiditis Scoliosis History of left heart catheterization Tubal ligation evaluation Enlarged ureter Supplemental oxygen dependent Hypertension Fibromyalgia CHF (congestive heart failure) Surgical History Surgical History History of cataract extraction with lens replacement History of arthroplasty of knee Left History of removal of pigmented skin lesion Nose 2021 History of hysterectomy Total History of ERCP History of fusion of lumbar spine L2-L5 lumbar fusion Titanium History of laminectomy History of total knee replacement History of cholecystectomy 2002 History of tubal ligation History of D&C History of hip surgery right Total knee replacement status Previous back surgery S/P peroneal tendon repair History of surgical removal of ganglion cyst 1960 H/O hernia repair 1947 Family History Family History Unknown No problems noted. Mother Esophageal cancer Other Alcohol abuse Cancer Hypertension Social History Social History Social History: She lives with her and has 3 biologic children. She also has 1 adopted child. 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 She is a former smoker. Code status full code Smoking packs per day: 1 Smoking cigarettes per day: 20.0 Years smoked: 10 Smoking pack-years: 10.00 Smoking status: Former smoker Tobacco type: cigarettes Second hand tobacco smoke exposure: No Smoking end date: 11/23/81 Additional smoking assessment comments: quit 1981 Alcohol intake: current Drinks per week: 1 Alcohol use details: 0-1 per week Substance use: never Substance use type: does not use Other substance usage details: social occassions Lack of Transportation: No Lack of Food: Never True Current Housing: I Have Housing Concerned About Future Housing: No Difficulty Paying Gas/Electric Bills: No Difficulty Paying for Meds: No Currently Unemployed: No Education: Associate Degree Difficulty w/ Childcare or Family Care: No Living arrangements: with family Additional living arrangements comments: [facility]. Occupation/Education: retired Gender identity (if verbalized by the patient): Female Spiritual care concerns: No Agree to blood products: Yes Exam Narrative: GENERAL: Well-appearing, well-nourished, and in mild acute respiratory distress. HEAD: Normocephalic, atraumatic. EYES: PERRLA and EOMI. ENT: Nares clear, no rhinorrhea or epistaxis. Mucous membranes moist. NECK: Supple. CHEST: Wheezes to auscultation. No respiratory distress. HEART: Regular rate and rhythm. No murmur heard. Normal peripheral pulses. ABDOMEN: Soft, nontender, nondistended, normal active bowel sounds. EXTREMITIES: Normal range of motion. No edema. SKIN: Warm, dry, no rash. NEURO: No focal deficits. Alert and oriented x3. PSYCH: Normal mood and affect. Course Vital Signs Vital signs: Vital Signs Temperature 37.0 C 02/25/25 00:26 Pulse Rate 90 02/25/25 00:26 Respiratory Rate 26 H 02/25/25 00:26 Blood Pressure 115/70 02/25/25 00:26 Pulse Oximetry 98 02/25/25 00:26 Oxygen Delivery Room Air 02/25/25 00:26 Temperature 37.0 C 02/25/25 00:26 Pulse Rate 68 02/25/25 00:56 Respiratory Rate 24 H 02/25/25 00:56 Blood Pressure 115/70 02/25/25 00:26 Pulse Oximetry 98 02/25/25 00:56 Oxygen Delivery Nasal Cannula 02/25/25 00:56 Oxygen Flow Rate 2 02/25/25 00:56 MDM Differential Diagnosis Differential Diagnosis: Pneumonia, CHF, respiratory failure, hyponatremia Laboratory studies were obtained that did show a sodium of 111 chest x-ray showed diffuse patchy infiltrates which could be congestive heart failure or could be pneumonia since the patient was recently admitted to the hospital Hcap antibiotics were started with cefepime and vancomycin patient's magnesium was 1.5 the patient was given 2 g of IV magnesium. Lab Data 02/25/25 00:49 02/25/25 00:49 Labs: Lab Results 02/25/25 Range/Units 00:49 WBC 11.1 H (4.5-10.0) K/mm3 RBC 2.37 L (4.2-5.4) M/mm3 Hgb 7.3 L (12.0-15.0) g/dL Hct 21.7 L (37.0-47.0) % MCV 91.6 (80-100) fl MCH 30.8 (26-34) pg MCHC 33.6 (32-36) g/dl RDW 14.6 H (11.5-14.5) % Plt Count 146 L (150-375) k/mm3 MPV 11.5 H (7.4-10.4) fl Immature Gran % (Auto) 4.3 H (0-0.5) % Neut % (Auto) 67.0 (45.5-73.1) % Lymph % (Auto) 8.8 L (18.3-44.2) % [place] % (Auto) 19.7 H (2.6-8.5) % Eos % (Auto) 0.1 (0-4.4) % Baso % (Auto) 0.1 L (0.2-1.2) % Lymph # (Auto) 0.97 (0.9-3.2) K/mm3 [place] # (Auto) 2.2 H (0.1-0.6) K/mm3 Eos # (Auto) 0.0 (0-0.3) K/mm3 Baso # (Auto) 0.0 (0.0-0.1) K/mm3 Abs Immat Gran (auto) 0.48 H (0.00-0.031) K/mm3 Absolute Neuts (auto) 7.4 H (1.3-6.7) K/mm3 Absolute Nucleated RBC 0.000 (0.0-0.012) K/mm3 Nucleated RBC % 0.0 (0.0-0.2) % Sodium 117 L* (137-145) mmol/L Potassium 4.3 (3.4-5.0) mmol/L Chloride 88 L (98-107) mmol/L Carbon Dioxide 23 (22-30) mmol/L Anion Gap 6 (4-12) mmol/L BUN 15 D (7-17) mg/dL Creatinine 0.90 (0.7-1.0) mg/dL Estim Creat Clear Calc Not Reportable Estimated GFR 60 (59 - ) Glucose 94 (65-110) mg/dL Lactic Acid 0.8 (0.7-2.0) mmol/L Calcium 9.0 (8.4-10.2) mg/dL Magnesium 1.5 L (1.6-2.3) mg/dL Total Bilirubin 0.9 (0.2-1.3) mg/dL AST 26 (14-36) U/L ALT 25 (6-35) U/L Alkaline Phosphatase 79 (38-126) U/L Troponin I 0.013 (0.000-0.034) ng/mL NT-Pro-B Natriuret Pep 7930 H (19.9-100) pg/mL Total Protein 6.4 (6.3-8.2) g/dL Albumin 3.8 (3.5-5.1) g/dL Procalcitonin 0.1 ng/mL Influenza A (RT-PCR) Negative (Negative) Influenza B (RT-PCR) Negative (Negative) RSV (RT-PCR) Negative (Negative) SARS-CoV-2 RNA (RT-PCR) Negative (Negative) ABG Data ABG results: 02/25/25 00:41 Puncture Site Left radial ABG pH 7.557 H* ABG pCO2 23.8 L* ABG pO2 91.3 ABG PO2/FiO2 Ratio 3.26 ABG HCO3 20.7 L ABG O2 Saturation 98.0 ABG O2 Content 11.6 L ABG Base Excess -0.9 A-a Gradient 80.3 Oxyhemoglobin 96.8 Total Hemoglobin 8.4 L O2 Delivery Device Nasal cannula O2 Liters/Min 2.0 FiO2 28 Critical Care Time Critical Care Time Critical Care Time: Yes Indication: Respiratory failure, hyponatremia Time Type: Intermittent Initial evaluation, discuss w/ involved parties, attempting to gather old records: 10 minutes Documenting medical record: 5 minutes Review of results (EKG's, labs, imaging): 5 minutes Serial repeat bedside evaluation: 10 minutes Discussing case with multiple memebers of the care team and consultants: 5 minutes Total Critical Care Time: 35 Discharge Plan Discharge Clinical Impression: Hypoxemic respiratory failure, chronic, CHF (congestive heart failure), Pneumonia, Hypomagnesemia, Acute hyponatremia Patient Disposition: Still a Patient Condition: Stable Patient Language: Bel[place]an Prescriptions: No Action docusate sodium 100 mg capsule 100 mg PO BID telmisartan 40 mg tablet 40 mg PO BID diclofenac sodium [Arthritis Pain (diclofenac)] 1 % gel 4 g topical QID PRN (Reason: Pain) Rx Instructions: apply to single knee, ankle, foot; for foot includes sole/toes/top of foot spironolactone 25 mg tablet 25 mg PO DAILY albuterol sulfate 2.5 mg /3 mL (0.083 %) solution for nebulization 2.5 mg inhalation Q6-8H PRN (Reason: shortness of breath or wheezing) naloxone 4 mg/actuation spray,non-aerosol 4 mg intranasal Q2-3M PRN (Reason: opioid overdose) Qty: 2 1RF Rx Instructions: spray 1 dose into ONE nostril; repeat every 2-3 minutes until responsive, alternating nostrils w each dose until help arrives albuterol sulfate 90 mcg/actuation HFA aerosol inhaler 1 - 2 puff inhalation Q4-6H PRN (Reason: shortness of breath or wheezing) Qty: 25.5 3RF (DME) oxygen 0 .ROUTE .MEDSUPPLY Patient Comments: 2L (DME) CPAP 0 .ROUTE .MEDSUPPLY (DME) Pain Pump See Rx Instructions .Route .MEDSUPPLY Patient Comments: prescribed by pain management Rx Instructions: Primary: Hydromorphone 125.0mcg/mL Secondary: Clonidine 200.0mcg/mL,Bupivacaine 5,000mcg/mL loratadine [Claritin] 10 mg tablet 10 mg PO DAILY PRN (Reason: allergy symptoms) nystatin 100,000 unit/gram powder 1 applic topical BID PRN (Reason: rash) Qty: 60 0RF aspirin 81 mg capsule 81 mg PO DAILY Gemtesa 75 mg tablet 75 mg PO DAILY cholecalciferol (vitamin D3) 50 mcg (2,000 unit) capsule 2,000 unit PO DAILY [place]-3 350 mg-235 mg- 90 mg-597 mg capsule,delayed release(DR/EC) 1 cap PO DAILY Eliquis 5 mg Tablet 5 mg PO Q12HR Qty: 180 2RF guaifenesin [Mucus Relief ER] 600 mg Tablet Extended Release 12hr 1,200 mg PO Q12HR Qty: 60 0RF benzonatate 200 mg capsule 200 mg PO TID PRN (Reason: cough) 7 Days Qty: 20 2RF furosemide [Lasix] 20 mg tablet 20 mg PO BID PRN (Reason: weight gain) Qty: 60 0RF Trelegy Ellipta 200-62.5-25 mcg blister with device 1 inh inhalation DAILY Qty: 180 3RF Rx Instructions: Rinse mouth and spit after each use lidocaine 5 % adhesive patch,medicated See Rx Instructions .ROUTE .COMPLEX Qty: 90 3RF Dose Instruction: APPLY 1 PATCH TO LOW BACK FOR 12 HOURS PER DAY Rx Instructions: APPLY 1 PATCH TO LOW BACK FOR 12 HOURS PER DAY amlodipine 10 mg tablet 10 mg PO DAILY Qty: 90 1RF fluoxetine 20 mg capsule 20 mg PO TID Qty: 270 1RF gabapentin 300 mg capsule 300 mg PO TID Qty: 270 1RF montelukast 10 mg tablet 10 mg PO DAILY Qty: 90 1RF pantoprazole 40 mg tablet,delayed release (DR/EC) 40 mg PO BID Qty: 180 1RF pravastatin 40 mg tablet 40 mg PO DAILY Qty: 90 1RF levothyroxine [Synthroid] 150 mcg tablet 150 mcg PO DAILY Qty: 90 1RF nebivolol [Bystolic] 10 mg tablet 10 mg PO DAILY Qty: 90 1RF folic acid 1 mg tablet 1 mg PO DAILY Qty: 90 1RF donepezil 5 mg tablet 5 mg PO QHS Qty: 90 1RF Follow-up/Referrals: Kristofer Key DO [Primary Care Provider, Internal Medicine]
[2025-02-25] MEDS: MAGNESIUM SULF 2 GM/WATER 50ML 2 GM/50 ML BAG IVPB (02:49)
[2025-02-25] MEDS: FUROSEMIDE INJ 40 MG/4 ML VIAL IV PUSH (03:30)
[2025-02-25 03:32] LABS: Troponin I 0.013 ng/mL (0.000-0.034)
[2025-02-25 04:28] LABS: Add Urine Microscopic? NO; Appearance Urine Clear (Clear); Glucose Urine UA Negative (Negative); Leukocyte Esterase Ur Negative LEU/UL (Negative); Nitrate Urine Negative (Negative); Specific Grav Ur 1.009 (1.001-1.035)
[2025-02-25] MEDS: CEFEPIME 2 GM in SODIUM CHLORIDE 0.9% IV 50 ML 100 ML IVPB ×2 (04:59→17:12)
--- NOTE | 2025-02-25 05:01 | WPCEDHO ---
ED Hand Off Checklist All vitals saved:yes IV Site documented:yes All med administrations documented:yes Triage Note Triage Note Pt to ED via ambulance from [facility] 02/25/25 00:26 [place] c/o SOB and barking cough currently on BIPAP. Pt on 2 L via NC at baseline, upon arrival oxygen saturation 96% on 2L via NC. HX: CHF Allergies clindamycin Allergy (Severe, Verified 02/11/25 11:46) Chills diazepam Allergy (Severe, Verified 02/11/25 11:46) suicidal ideation levofloxacin (From Levaquin) Allergy (Intermediate, Verified 02/11/25 11:46) Itching cat dander Allergy (Unknown, Verified 02/11/25 11:46) Sinusitis dog dander Allergy (Unknown, Verified 02/11/25 11:46) Sinusitis feathers Allergy (Unknown, Verified 02/11/25 11:46) Sinusitis grass pollen Allergy (Unknown, Verified 02/11/25 11:46) Sinusitis [place] Grass house dust Allergy (Unknown, Verified 02/11/25 11:46) Sinusitis Rabbit Allergy (Unknown, Verified 02/11/25 11:46) Sinusitis tree and shrub pollen Allergy (Unknown, Verified 02/11/25 11:46) Sinusitis [place] adhesive tape Allergy (Verified 02/11/25 11:46) Redness of Skin Bandaids silicone Allergy (Verified 02/11/25 11:46) Unknown meperidine (From Demerol) Adverse Reaction (Verified 02/11/25 11:46) Hallucinating oxycodone (From Percocet) Adverse Reaction (Verified 02/11/25 11:46) Nausea propoxyphene Adverse Reaction (Verified 02/11/25 11:46) Nausea and Vomiting Family History (Last Reviewed 02/25/25 @ 02:45 by Kenrick Hart MD) Unknown No problems noted. Mother Esophageal cancer Other Alcohol abuse Cancer Hypertension Active Medications including assessments/comments Miscellaneous Information (Please Enter Patient Height For Medication Dosing.) 1 each XX CLARIFY VIN Stop: 03/27/25 00:00 Last Admin: 02/25/25 03:23 Dose: 1 each Documented By: EZG Administered/Completed Medications Discontinued Medications Albuterol/Ipratropium (Ipratropium 0.5 Mg/Albuterol Sulfate 2.5 Mg (Base) Ampul.Neb 3 Ml) 3 ml INHALATION ONCE STA Stop: 02/25/25 00:42 Last Admin: 02/25/25 00:56 Dose: 3 ml Documented By: DANTE Furosemide (Furosemide Inj 40 Mg/4 Ml Vial) 40 mg IV PUSH ONCE STA Stop: 02/25/25 02:40 Last Admin: 02/25/25 03:30 Dose: 40 mg Documented By: ASHLEY Magnesium Sulfate (Magnesium Sulf 2 Gm/Water 50ml) 2 gm in 50 mls @ 25 mls/hr IVPB ONCE ONE Stop: 02/25/25 04:36 Last Infusion: 02/25/25 04:53 Dose: Infused Documented By: Admin: 02/25/25 02:49 Dose: 25 mls/hr Documented By: ASHLEY Co-signed By: FARTUN Cefepime HCl 2 gm/ Sodium (Chloride) 50 mls @ 100 mls/hr IVPB ONCE ONE Stop: 02/25/25 03:14 Last Admin: 02/25/25 04:59 Dose: 100 mls/hr Documented By: ASHLEY Methylprednisolone Sodium Succinate (Methylprednisolone Sod Succ 125 Mg Vial) 125 mg IV PUSH ONCE STA Stop: 02/25/25 00:42 Last Admin: 02/25/25 00:47 Dose: 125 mg Documented By: ASHLEY Interventions/Assessments IV / Saline Lock, Insert Start: 02/25/25 00:24 Freq: Status: Active Protocol: Document 02/25/25 04:53 DIONNEG (Rec: 02/25/25 04:54 DIONNEG [id number]) IV Assessment Peripheral Access Left Antecubital IV Catheter Access Initiated IV Insertion Date 02/25/25 IV Insertion Time 04:54 Catheter Gauge 20 IV Insertion 2 Attempts IV Site Assessment Bruised IV Care and WNL Maintenance PA: Cardiovascular Assessment Start: 02/25/25 00:24 Freq: Status: Active Protocol: Document 02/25/25 00:58 DIONNEG (Rec: 02/25/25 00:59 ASHLEY [id number]) Cardiovascular Assessment Cardiovascular Dyspnea Symptoms Jugular Vein None Distention Skin Description Warm Heart Sounds Normal PA: Respiratory Assessment Start: 02/25/25 00:24 Freq: Status: Active Protocol: Document 02/25/25 00:30 DIONNEG (Rec: 02/25/25 01:00 DIONNEG [id number]) Respiratory Assessment Symptoms Cough,Inability to Speak,Shortness of Breath at Rest, Shortness of Breath With Exertion,Wheezing Effort Labored,Short of Breath Pattern Hyperventilation Depth Shallow Chest Expansion Symmetrical Adult Capillary Normal/Less than 2 Seconds Refill Cough Description Acute,Barking,Productive Cough Frequency Intermittent Oxygen Delivery Oxygen Delivery Nasal Cannula Pulse Oximetry (90- 97 100) Oxygen Flow Rate 2 Last Vital Signs Temperature 98.5 F 02/25/25 04:55 Pulse Rate 67 02/25/25 04:55 Respiratory Rate 15 02/25/25 04:55 Pulse Oximetry 97 02/25/25 04:55 Blood Pressure 130/69 02/25/25 04:55 Blood Pressure Mean 89 02/25/25 04:55 Blood Pressure Position Sitting 02/25/25 04:55 Oxygen Delivery CPAP 02/25/25 03:10 Oxygen Flow Rate 2 02/25/25 00:56 Weight 103.8 kg 02/25/25 03:22 Last Result - Abnormals Only WBC 11.1 K/mm3 (4.5-10.0) H 02/25/25 00:49 RBC 2.37 M/mm3 (4.2-5.4) L 02/25/25 00:49 Hgb 7.3 g/dL (12.0-15.0) L 02/25/25 00:49 Hct 21.7 % (37.0-47.0) L 02/25/25 00:49 RDW 14.6 % (11.5-14.5) H 02/25/25 00:49 Plt Count 146 k/mm3 (150-375) L 02/25/25 00:49 MPV 11.5 fl (7.4-10.4) H 02/25/25 00:49 Immature Gran % (Auto) 4.3 % (0-0.5) H 02/25/25 00:49 Lymph % (Auto) 8.8 % (18.3-44.2) L 02/25/25 00:49 [place] % (Auto) 19.7 % (2.6-8.5) H 02/25/25 00:49 Baso % (Auto) 0.1 % (0.2-1.2) L 02/25/25 00:49 [place] # (Auto) 2.2 K/mm3 (0.1-0.6) H 02/25/25 00:49 Abs Immat Gran (auto) 0.48 K/mm3 (0.00-0.031) H 02/25/25 00:49 Absolute Neuts (auto) 7.4 K/mm3 (1.3-6.7) H 02/25/25 00:49 ABG pH 7.557 (7.350-7.450) H* 02/25/25 00:41 ABG pCO2 23.8 mmHg (35.0-45.0) L* 02/25/25 00:41 ABG HCO3 20.7 mEq/l (22.0-26.0) L 02/25/25 00:41 ABG O2 Content 11.6 %vol (16.0-22.0) L 02/25/25 00:41 Total Hemoglobin 8.4 g/dL (12.0-18.0) L 02/25/25 00:41 Sodium 117 mmol/L (137-145) L* 02/25/25 00:49 Chloride 88 mmol/L (98-107) L 02/25/25 00:49 Magnesium 1.5 mg/dL (1.6-2.3) L 02/25/25 00:49 NT-Pro-B Natriuret Pep 7930 pg/mL (19.9-100) H 02/25/25 00:49 Most Recent Suicide Severity Rating Suicide Severity Rating NO RISK INDICATED 02/25/25 00:26
[2025-02-25] MEDS: VANCOMYCIN 1,250 MG/NS 250 ML 1,250 MG/250 ML BAG 166.67 MG IVPB ×2 (05:57→07:29)
[2025-02-25 06:05] LABS: Anion Gap 11 mmol/L (4-12); Blood Urea Nitrogen 17 mg/dL (7-17); Calcium 9.3 mg/dL (8.4-10.2); Carbon Dioxide 19 mmol/L (22-30); Chloride 89 mmol/L (98-107); Estimated CRCL calculation 48 ml/min; Estimated Glomerular Filt Rate 58; Glucose 121 mg/dL (65-110); Potassium 4.4 mmol/L (3.4-5.0); Sodium 119 mmol/L (137-145)
--- NOTE | 2025-02-25 06:12 | ADMIMU ---
This patient, Marialuisa Darden, was admitted to IMU status, and placed in IMU Room 203-01 at 0525. Patient/family oriented to hospital policies and general routines including ID bracelet, bed and alarms, visiting hours, pain management, procedures, bathroom and other care routines, personal items, smoking policy, room service/diet, and visiting hours. Valuables list has been completed. Information on how to activate the Rapid Response Team has been discussed. Patient/Family are encouraged to report perceived risks to care and to ask questions if they do not understand what they are told or what they should do.
[2025-02-25 06:23] LABS: MRSA (PCR) NOT DETECTED (NOT DETECTE)
[2025-02-25 09:16] LABS: Anion Gap 12 mmol/L (4-12); Blood Urea Nitrogen 17 mg/dL (7-17); Calcium 9.0 mg/dL (8.4-10.2); Carbon Dioxide 19 mmol/L (22-30); Chloride 90 mmol/L (98-107); Estimated CRCL calculation 47 ml/min; Estimated Glomerular Filt Rate 56; Glucose 142 mg/dL (65-110); Potassium 4.6 mmol/L (3.4-5.0); Sodium 121 mmol/L (137-145)
[2025-02-25] MEDS: DOXYCYCLINE IV 100 MG in SODIUM CHLORIDE 0.9% IV 100 ML IVPB ×2 (10:24→21:01)
--- NOTE | 2025-02-25 12:48 | P.HP_ITS ---
H&P: HPI History of Present Illness Date/Time: 02/25/25 12:48 Chief Complaint: Shortness of breath Narrative: Marialuisa Darden is an 79-year-old female with a past medical history dementia, chronic respiratory failure, diastolic dysfunction, anemia, COPD, HTN, fibromyalgia among other chronic medical conditions presents here with shortness of breath and cough. Patient was recently admitted and discharged from the hospital on 02/10/25 - 02/16/2025 for asthma exacerbation, acute/chronic respiratory failure and pneumonia. Difficult to ascertain when symptoms 1st initiated as patient was confused yesterday but she states that she feels much better than she did yesterday. Accompanied by who states that she looks and appears to be breathing much easier today than she did yesterday. Upon admission, sodium was extremely low at 117. She uses 2 L nasal cannula at baseline. Denies any recent sick contacts, travel. Initial vital signs at presentation: 37? C, HR 90, RR 26, 115/70, 98% on 2 L nasal cannula WBC 11.1, HGB 7.3, HCT 21.7, PLT 146, sodium 117, potassium 0.3, BUN 15, creatinine 0.9, glucose 94, lactic acid 8, LFTs WNL, BNP 7 930, troponin within normal limits viral panel negative Chest x-ray: Persistent interstitial and mild airspace opacities in both lungs, left greater than right, which is most likely related to chronic initial lung disease with differential including recurrent mild pulmonary edema or pneumonia. 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 Dementia History of ARDS Diastolic dysfunction History of nuclear stress test History of abnormal electrocardiogram Genevieve's thyroiditis Rosacea w/ ocular involvement Depression History of rectocele History of migraine headaches Spondylosis of cervical spine Arthralgia H/O antinuclear antibodies intermittent +ABRAM to 1:320 Vascular disorder seronegative collagen disorder History of squamous cell carcinoma History of staph infection Chronic left shoulder pain arthritis; possibly inflammatory Fracture, rib Aftercare following finger joint replacement surgery Thyroiditis Scoliosis History of left heart catheterization Tubal ligation evaluation Enlarged ureter Supplemental oxygen dependent Hypertension Fibromyalgia CHF (congestive heart failure) Surgical History Surgical History History of cataract extraction with lens replacement History of arthroplasty of knee Left History of removal of pigmented skin lesion Nose 2021 History of hysterectomy Total History of ERCP History of fusion of lumbar spine L2-L5 lumbar fusion Titanium History of laminectomy History of total knee replacement History of cholecystectomy 2002 History of tubal ligation History of D&C History of hip surgery right Total knee replacement status Previous back surgery S/P peroneal tendon repair History of surgical removal of ganglion cyst 1960 H/O hernia repair 1947 Family History Family History Unknown No problems noted. Mother Esophageal cancer Other Alcohol abuse Cancer Hypertension Social History Social History Social History: She lives with her and has 3 biologic children. She also has 1 adopted child. 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 She is a former smoker. Code status full code Smoking packs per day: 1 Smoking cigarettes per day: 20.0 Years smoked: 10 Smoking pack-years: 10.00 Smoking status: Former smoker Tobacco type: cigarettes Second hand tobacco smoke exposure: No Smoking end date: 11/23/81 Additional smoking assessment comments: quit 1981 Alcohol intake: current Drinks per week: 1 Alcohol use details: 0-1 per week Substance use: never Substance use type: does not use Other substance usage details: social occassions Lack of Transportation: No Lack of Food: Never True Current Housing: I Have Housing Concerned About Future Housing: No Difficulty Paying Gas/Electric Bills: No Difficulty Paying for Meds: No Currently Unemployed: No Education: Decline to Answer Difficulty w/ Childcare or Family Care: No Living arrangements: with family Additional living arrangements comments: [facility]. Occupation/Education: retired Gender identity (if verbalized by the patient): Female Spiritual care concerns: No Agree to blood products: Yes Meds Home Medications and Allergies Home Medications ?Medication ?Instructions ?Recorded ?Confirmed ?Type docusate sodium 100 mg capsule 100 mg PO BID 11/18/21 02/25/25 History diclofenac sodium 1 % topical gel 4 g topical QID PRN Pain 05/13/22 02/25/25 History (Arthritis Pain (diclofenac)) telmisartan 40 mg tablet 40 mg PO BID 05/13/22 History spironolactone 25 mg tablet 25 mg PO DAILY 06/15/22 History albuterol sulfate 2.5 mg/3 mL 2.5 mg inhalation Q6-8H PRN 12/28/22 02/25/25 History (0.083 %) solution for nebulization shortness of breat h or wheezing naloxone 4 mg/actuation nasal spray 4 mg intranasal Q2 -3M PRN opioid 03/22/23 02/25/25 Rx overdose #2 ea fluticasone fur. 200 mcg-umeclid 1 inh inhalation STERLING Y #180 ea 12/27/23 Rx 62.5 mcg-vilant 25 mcg inhalat.powder (Trelegy Ellipta) albuterol sulfate 90 mcg/actuation 1 - 2 puff inhalati on Q4-6H PRN 02/21/24 02/25/25 Rx aerosol inhaler shortness of breath or wheez ing #25.5 grams aspirin 81 mg capsule 81 mg PO DAILY 03/08/2402/05 History cholecalciferol (vitamin D3) 50 2,000 unit PO DAILY 02/25/25 History mcg (2,000 unit) capsule omega 3 350 mg-dha 235 mg-epa 90 1 cap PO DAILY 02/25/25 History mg-fish oil 597 mg capsule,delay rel ([place]-3) vibegron 75 mg tablet (Gemtesa) 75 mg PO DAILY 5 02/25/25 History CPAP 05/21/24 02/25/25 History Held on 02/25/25. Instructions: Patient not sleeping. loratadine 10 mg tablet (Claritin) 10 mg PO DAILY PRN allergy symptoms 05/21/24 02/25/25 History oxygen 05/21/24 02/25/25 History lidocaine 5 % topical patch See Rx Instructions .Route 07/23/24 02/25/25 Rx .COMPLEX #90 patches amlodipine 10 mg tablet 10 mg PO DAILY #90 tabs 08/0602/25/25 Rx fluoxetine 20 mg capsule 20 mg PO TID #270 caps 08/2702/25/25 Rx gabapentin 300 mg capsule 300 mg PO TID #270 caps 08/0602/25/25 Rx montelukast 10 mg tablet 10 mg PO DAILY #90 tabs 08/0602/25/25 Rx pantoprazole 40 mg tablet,delayed 40 mg PO BID #180 ta bs 08/27/24 02/25/25 Rx release pravastatin 40 mg tablet 40 mg PO DAILY #90 tabs 08/0602/25/25 Rx levothyroxine 150 mcg tablet 150 mcg PO DAILY #90 tabs 08/28/24 02/25/25 Rx (Synthroid) nebivolol 10 mg tablet (Bystolic) 10 mg PO DAILY #90 t abs 08/28/24 02/25/25 Rx folic acid 1 mg tablet 1 mg PO DAILY #90 tabs 09/0302/25/25 Rx nystatin 100,000 unit/gram topical 1 applic topical BI D PRN rash #60 11/01/24 02/25/25 Rx powder grams donepezil 5 mg tablet 5 mg PO QHS #90 tabs 5 02/25/25 Rx apixaban 5 mg tablet (Eliquis) 5 mg PO Q12HR #180 tabs 02/16/25 02/25/25 Rx benzonatate 200 mg capsule 200 mg PO TID PRN cough 7 d ays #20 02/16/25 02/25/25 Rx caps furosemide 20 mg tablet (Lasix) 20 mg PO BID PRN weigh t gain #60 02/16/25 02/25/25 Rx tabs guaifenesin 600 mg tablet, 1,200 mg (2 x 600 mg) PO Q1 2HR #60 02/16/25 02/25/25 Rx extended release 12 hr (Mucus tabs Relief ER) Allergies Allergy/AdvReac Type Severity Reaction Status Date / Time clindamycin Allergy Severe Chills Verified 02/25/25 06:13 diazepam Allergy Severe suicidal Verified 02/25/25 06:13 ideation levofloxacin (From Levaquin) Allergy Intermediate Itching Verified 02/25/25 06:13 cat dander Allergy Unknown Sinusitis Verified 02/25/25 06:13 dog dander Allergy Unknown Sinusitis Verified 02/25/25 06:13 feathers Allergy Unknown Sinusitis Verified 02/25/25 06:13 grass pollen Allergy Unknown Sinusitis Verified 02/25/25 06:13 house dust Allergy Unknown Sinusitis Verified 02/25/25 06:13 Rabbit Allergy Unknown Sinusitis Verified 02/25/25 06:13 tree and shrub pollen Allergy Unknown Sinusitis Verified 02/25/25 06:13 adhesive tape Allergy Redness of Verified 02/25/25 06:13 Skin silicone Allergy Unknown Verified 02/25/25 06:13 meperidine (From Demerol) AdvReac Hallucinati Verified 02/25/25 06:13 ng oxycodone (From Percocet) AdvReac Nausea Verified 02/25/25 06:13 propoxyphene AdvReac Nausea and Verified 02/25/25 06:13 Vomiting Vital Signs Vital Signs - 24 hr 02/25/25 00:26 02/25/25 00:30 02/25/25 00:30 Temperature 98.6 F Pulse Rate 90 Respiratory Rate 26 H Blood Pressure 115/70 Pulse Oximetry 98 98 97 Oxygen Delivery Room Air Nasal Cannula Nasal Cannula Oxygen Flow Rate 3 2 Fraction of Inspired Oxygen 02/25/25 00:56 02/25/25 00:56 02/25/25 03:10 Temperature Pulse Rate 68 86 Respiratory Rate 24 H Blood Pressure Pulse Oximetry 98 100 Oxygen Delivery Nasal Cannula CPAP Oxygen Flow Rate 2 Fraction of Inspired Oxygen 02/25/25 04:55 02/25/25 06:00 02/25/25 06:04 Temperature 98.5 F 98.3 F Pulse Rate 67 72 71 Respiratory Rate 15 21 H Blood Pressure 130/69 122/57 L Pulse Oximetry 97 96 Oxygen Delivery Oxygen Flow Rate Fraction of Inspired Oxygen 02/25/25 07:37 02/25/25 07:37 02/25/25 07:42 Temperature Pulse Rate 72 72 72 Respiratory Rate 20 20 20 Blood Pressure Pulse Oximetry 88 L Oxygen Delivery Room Air Oxygen Flow Rate Fraction of Inspired Oxygen 21 02/25/25 08:00 02/25/25 12:00 Temperature 98.4 F 97.4 F L Pulse Rate 78 74 Respiratory Rate 22 H 24 H Blood Pressure 120/70 136/58 L Pulse Oximetry 98 97 Oxygen Delivery Oxygen Flow Rate Fraction of Inspired Oxygen Exam Narrative: Gen -chronically ill appearing female in no acute respiratory distress who is nontoxic-appearing lying semi recumbent in bed HEENT - normocephalic. ?Atraumatic. ?Pupils equal round and reactive. ?Extraocular motions intact. ?Sclera clear and anicteric. ?Nares patent. ?Oropharynx was clear. ?No oral lesions. ?Moist mucous membranes. ?Tongue was midline. ?Palate marjorie symmetrically. ?No facial asymmetry. Neck - neck was supple. ?No dominant adenopathy, thyromegaly or masses. ? Chest - lungs are clear to auscultation bilaterally. ?No wheezes or crackles. CV -abnormal rhythm, irregularly irregular,, normal rate, S1-S2. No murmurs gallops or rubs. Abd - abdomen was soft. ?Nontender. ?Nondistended. ?Positive bowel sounds. ?No organomegaly or masses. Ext -minimal trace lower extremity edema no clubbing, cyanosis. ?2+ DP pulses bilaterally. Neuro - patient is alert and oriented x2. ?Strength is 5/5 in both upper and lower extremities. ?Cranial nerves 2-12 are intact. ?Speech is clear. Psych - normal mood and affect. ?Patient is pleasant and cooperative. Skin - warm and dry. ?No rashes noted. Results Labs Labs: Short CBC 02/25/25 Range/Units 00:49 WBC 11.1 H (4.5-10.0) K/mm3 Hgb 7.3 L (12.0-15.0) g/dL Hct 21.7 L (37.0-47.0) % Plt Count 146 L (150-375) k/mm3 [facility] 02/25/25 02/25/25 02/25/25 00:49 05:29 08:48 Sodium 117 L* 119 L* 121 L Potassium 4.3 4.4 4.6 Chloride 88 L 89 L 90 L Carbon Dioxide 23 19 L 19 L BUN 15 D 17 17 Creatinine 0.90 0.93 0.95 Glucose 94 121 H 142 H Calcium 9.0 9.3 9.0 Cardiac Enzymes 02/25/25 02/25/25 Range/Units 00:49 03:01 Troponin I 0.013 0.013 (0.000-0.034) ng/mL Liver Function 02/25/25 Range/Units 00:49 Total Bilirubin 0.9 (0.2-1.3) mg/dL AST 26 (14-36) U/L ALT 25 (6-35) U/L Alkaline Phosphatase 79 (38-126) U/L Albumin 3.8 (3.5-5.1) g/dL Urine 02/25/25 Range/Units 04:18 Urine Color Yellow (Yellow) Urine Appearance Clear (Clear) Urine pH 5.5 (5.0-9.0) Ur Specific [place] 1.009 (1.001-1.035) Urine Protein Negative (Negative) mg/dL Urine Glucose (UA) Negative (Negative) mg/dL Quality VTE Prophylaxis VTE prophylaxis: pharmacologic ordered Assessment and Plan Assessment and plan (1) Acute and chronic respiratory failure: Qualifiers: Respiratory failure complication: hypoxia Qualified Code(s): J96.21 - Acute and chronic respiratory failure with hypoxia Code(s): J96.20 - Acute and chronic respiratory failure, unspecified whether with hypoxia or hypercapnia Status: Acute Assessment and Plan: At baseline requires 2 L nasal cannula at all times, remains at 2 L nasal cannula with appropriate O2 saturations. Placed on BiPAP in ER for increased work of breathing. * ABG: PH 7.557, pCO2 23.8, PO2 91.3, HC03 20.7, O2 content 11.6, O2 saturation 98% -no hypoxemia * Likely multifactorial, CHF exacerbation, HAP, asthma excerbation? * Will continue 40 mg Lasix daily * Antibiotic therapy for pneumonia * Does not require BiPAP at this time * Maintain baseline O2 supplementation * Duonebz q6H and Albuterol q2H prn * Solu-Medrol 40 mg IVq12H (2) Pneumonia: Code(s): J18.9 - Pneumonia, unspecified organism Status: Acute Assessment and Plan: * CXR: Persistent interstitial and mild airspace opacities in both lungs, left greater than right, which is most likely related to chronic initial lung disease with differential including recurrent mild pulmonary edema or pneumonia * Risk Factors: Recent hospitalization 1-1/2 weeks prior to this admission * started on HAP tx: Cefepime * Viral PCR: negative for Flu/COVID/RSV * Consider ordering legionella, mycoplasma and pneumococcal * no supplemental O2 requirement * supportive treatment * trend labs * Monitor vital signs, I&Os, neuro status and patient is a fall risk * Follow WBC, serum electrolytes, temperature curves and cultures * Send sputum cultures (3) Acute hyponatremia: Code(s): E87.1 - Hypo-osmolality and hyponatremia Status: Acute Assessment and Plan: * Upon admission: Na 117 * Longstanding history of hyponatremia with sodium levels in the high 120s/low 130s since 2021 * Multifactorial, fluoxetine may be contributory, pantoprazole * Serum osmolality, urine osmolality, cortisol, TSH, SPEP * Nephrology consulted * Fluid restriction * Most recent Na: 121 * Ensure no rapid over-correction * Asymptomatic, hold on 3% saline (4) Acute exacerbation of CHF (congestive heart failure): Qualifiers: Heart failure type: diastolic Qualified Code(s): I50.33 - Acute on chronic diastolic (congestive) heart failure Code(s): I50.9 - Heart failure, unspecified Status: Acute Assessment and Plan: * Symptoms: Shortness of breath, lower extremity swelling * Current medications: Continue IV furosemide * BNP: 7930 * EKG: Atrial flutter/tachycardia * Chest XR: Persistent interstitial and mild airspace opacities in both lungs, left greater than right, which is most likely related to chronic initial lung disease with differential including recurrent mild pulmonary edema or pneumonia. * Echo: 02/13/25: EF 55-60%, severe enlargement left atrial chamber, moderate enlargement right atrial chamber, mild pulmonary hypertension, trace AVR/TVR, mild MVR * Monitor vital signs, I&Os, BUN/creatinine, daily weights, neuro status and patient is a fall risk * Monitor serum electrolytes, Keep serum Potassium>4 and serum Magnesium>2 and CBC (5) Atrial fibrillation: Code(s): I48.91 - Unspecified atrial fibrillation Status: Acute Assessment and Plan: * Keep serum potassium >4 and keep magnesium >2 * Consult Cardiology for further management, appreciate assistance and recommendations * Lovenox initiated * Continue Eliquis * Heart rate well-controlled (6) Hypothyroidism: Qualifiers: Hypothyroidism type: acquired Qualified Code(s): E03.9 - Hypothyroidism, unspecified Code(s): E03.9 - Hypothyroidism, unspecified Status: Chronic Assessment and Plan: * Continue Synthroid * Repeat TSH (7) NBA on CPAP: Code(s): G47.33 - Obstructive sleep apnea (adult) (pediatric); Z99.89 - Dependence on other enabling machines and devices Status: Chronic Assessment and Plan: * Continue at-home CPAP (8) Hypertension: Qualifiers: Hypertension type: primary hypertension Qualified Code(s): I10 - Essential (primary) hypertension Code(s): I10 - Essential (primary) hypertension Status: Chronic Assessment and Plan: * Patient's blood pressure was reviewed on 02/25 * Blood pressure remains well controlled * Will continue current medications (9) Depression, major, recurrent, mild: Code(s): F33.0 - Major depressive disorder, recurrent, mild Status: Acute Assessment and Plan: * Continue fluoxetine
--- NOTE | 2025-02-25 13:17 | PM.CNCAR ---
Assessment and Plan Assessment and plan (1) Acute exacerbation of CHF (congestive heart failure): Qualifiers: Heart failure type: diastolic Qualified Code(s): I50.33 - Acute on chronic diastolic (congestive) heart failure Code(s): I50.9 - Heart failure, unspecified Status: Acute Assessment and Plan: Mild acute on chronic diastolic heart failure exacerbation. BNP 7930, mid pulmonary edema on CXR. Continue with IV furosemide for now Strict I&O daily weights chf education (2) Atrial fibrillation: Code(s): I48.91 - Unspecified atrial fibrillation Status: Acute Assessment and Plan: Recent diagnosis. Heart rate is controlled. Continue Eliquis for stroke risk reduction. History of Present Illness History of Present Illness Consult date/time: 02/25/25 13:17 Requesting physician: Marco Guzman PA-C Consult reason: congestive heart failure Reason For Visit: Respiratory failure, Hyponatremia, Hcap Narrative: Marialuisa Darden is an 79 year old female with dementia, chronic respiratory failure, diastolic dysfunction, anemia, ILD, hypertension, and fibromyalgia, and atrial fibrillation. She presents to the hospital with shortness of breath. Cardiology is consulted for CHF. Unable to obtain history about symptoms because when asked why she came to the hospital she statess, I cant remember. She does know that she feels better now than she did yesterday. Has no chest pain, palpitations. Still has shortness of breath. Review of Systems Review of Systems: ROS unobtainable: Yes unobtainable due to mental status PMFSH Past Medical History Medical History Femur fracture, right Surgical screws Fracture, foot Right Metatarsal Anemia Undifferentiated connective tissue disease Depression with anxiety NBA on CPAP Dementia History of ARDS Diastolic dysfunction History of nuclear stress test History of abnormal electrocardiogram Genevieve's thyroiditis Rosacea w/ ocular involvement Depression History of rectocele History of migraine headaches Spondylosis of cervical spine Arthralgia H/O antinuclear antibodies intermittent +ABRAM to 1:320 Vascular disorder seronegative collagen disorder History of squamous cell carcinoma History of staph infection Chronic left shoulder pain arthritis; possibly inflammatory Fracture, rib Aftercare following finger joint replacement surgery Thyroiditis Scoliosis History of left heart catheterization Tubal ligation evaluation Enlarged ureter Supplemental oxygen dependent Hypertension Fibromyalgia CHF (congestive heart failure) Surgical History Surgical History History of cataract extraction with lens replacement History of arthroplasty of knee Left History of removal of pigmented skin lesion Nose 2021 History of hysterectomy Total History of ERCP History of fusion of lumbar spine L2-L5 lumbar fusion Titanium History of laminectomy History of total knee replacement History of cholecystectomy 2002 History of tubal ligation History of D&C History of hip surgery right Total knee replacement status Previous back surgery S/P peroneal tendon repair History of surgical removal of ganglion cyst 1960 H/O hernia repair 1947 Family History Family History Unknown No problems noted. Mother Esophageal cancer Other Alcohol abuse Cancer Hypertension Social History Social History Social History: She lives with her and has 3 biologic children. She also has 1 adopted child. 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 She is a former smoker. Code status full code Smoking packs per day: 1 Smoking cigarettes per day: 20.0 Years smoked: 10 Smoking pack-years: 10.00 Smoking status: Former smoker Tobacco type: cigarettes Second hand tobacco smoke exposure: No Smoking end date: 11/23/81 Additional smoking assessment comments: quit 1981 Alcohol intake: current Drinks per week: 1 Alcohol use details: 0-1 per week Substance use: never Substance use type: does not use Other substance usage details: social occassions Lack of Transportation: No Lack of Food: Never True Current Housing: I Have Housing Concerned About Future Housing: No Difficulty Paying Gas/Electric Bills: No Difficulty Paying for Meds: No Currently Unemployed: No Education: Decline to Answer Difficulty w/ Childcare or Family Care: No Living arrangements: with family Additional living arrangements comments: [facility]. Occupation/Education: retired Gender identity (if verbalized by the patient): Female Spiritual care concerns: No Agree to blood products: Yes Meds Home Medications and Allergies Home Medications ?Medication ?Instructions ?Recorded ?Confirmed ?Type docusate sodium 100 mg capsule 100 mg PO BID 11/18/21 02/25/25 History diclofenac sodium 1 % topical gel 4 g topical QID PRN Pain 05/13/22 02/25/25 History (Arthritis Pain (diclofenac)) telmisartan 40 mg tablet 40 mg PO BID 05/13/22 02/25/25 History spironolactone 25 mg tablet 25 mg PO DAILY 06/15/22 02/25/25 History albuterol sulfate 2.5 mg/3 mL 2.5 mg inhalation Q6-8H PRN 12/28/22 02/25/25 History (0.083 %) solution for nebulization shortness of breath or wheezing naloxone 4 mg/actuation nasal spray 4 mg intranasal Q2-3M PRN opioid 03/22/23 02/25/25 Rx overdose #2 ea fluticasone fur. 200 mcg-umeclid 1 inh inhalation DAILY #180 ea 12/27/23 02/25/25 Rx 62.5 mcg-vilant 25 mcg inhalat.powder (Trelegy Ellipta) albuterol sulfate 90 mcg/actuation 1 - 2 puff inhalation Q4-6H PRN 02/21/24 02/25/25 Rx aerosol inhaler shortness of breath or wheezing #25.5 grams aspirin 81 mg capsule 81 mg PO DAILY 03/08/24 02/25/25 History cholecalciferol (vitamin D3) 50 2,000 unit PO DAILY 03/08/24 02/25/25 History mcg (2,000 unit) capsule omega 3 350 mg-dha 235 mg-epa 90 1 cap PO DAILY 03/08/24 02/25/25 History mg-fish oil 597 mg capsule,delay rel ([place]-3) vibegron 75 mg tablet (Gemtesa) 75 mg PO DAILY 03/08/24 02/25/25 History CPAP 05/21/24 02/25/25 History Held on 02/25/25. Instructions: Patient not sleeping. loratadine 10 mg tablet (Claritin) 10 mg PO DAILY PRN allergy symptoms 05/21/24 02/25/25 History oxygen 05/21/24 02/25/25 History lidocaine 5 % topical patch See Rx Instructions .Route 07/23/24 02/25/25 Rx .COMPLEX #90 patches amlodipine 10 mg tablet 10 mg PO DAILY #90 tabs 08/27/24 02/25/25 Rx fluoxetine 20 mg capsule 20 mg PO TID #270 caps 08/27/24 02/25/25 Rx gabapentin 300 mg capsule 300 mg PO TID #270 caps 08/27/24 02/25/25 Rx montelukast 10 mg tablet 10 mg PO DAILY #90 tabs 08/27/24 02/25/25 Rx pantoprazole 40 mg tablet,delayed 40 mg PO BID #180 tabs 08/27/24 02/25/25 Rx release pravastatin 40 mg tablet 40 mg PO DAILY #90 tabs 08/27/24 02/25/25 Rx levothyroxine 150 mcg tablet 150 mcg PO DAILY #90 tabs 08/28/24 02/25/25 Rx (Synthroid) nebivolol 10 mg tablet (Bystolic) 10 mg PO DAILY #90 tabs 08/28/24 02/25/25 Rx folic acid 1 mg tablet 1 mg PO DAILY #90 tabs 09/03/24 02/25/25 Rx nystatin 100,000 unit/gram topical 1 applic topical BID PRN rash #60 11/01/24 02/25/25 Rx powder grams donepezil 5 mg tablet 5 mg PO QHS #90 tabs 02/06/25 02/25/25 Rx apixaban 5 mg tablet (Eliquis) 5 mg PO Q12HR #180 tabs 02/16/25 02/25/25 Rx benzonatate 200 mg capsule 200 mg PO TID PRN cough 7 days #20 02/16/25 02/25/25 Rx caps furosemide 20 mg tablet (Lasix) 20 mg PO BID PRN weight gain #60 02/16/25 02/25/25 Rx tabs guaifenesin 600 mg tablet, 1,200 mg (2 x 600 mg) PO Q12HR #60 02/16/25 02/25/25 Rx extended release 12 hr (Mucus tabs Relief ER) Allergies Allergy/AdvReac Type Severity Reaction Status Date / Time clindamycin Allergy Severe Chills Verified 02/25/25 06:13 diazepam Allergy Severe suicidal Verified 02/25/25 06:13 ideation levofloxacin (From Levaquin) Allergy Intermediate Itching Verified 02/25/25 06:13 cat dander Allergy Unknown Sinusitis Verified 02/25/25 06:13 dog dander Allergy Unknown Sinusitis Verified 02/25/25 06:13 feathers Allergy Unknown Sinusitis Verified 02/25/25 06:13 grass pollen Allergy Unknown Sinusitis Verified 02/25/25 06:13 house dust Allergy Unknown Sinusitis Verified 02/25/25 06:13 Rabbit Allergy Unknown Sinusitis Verified 02/25/25 06:13 tree and shrub pollen Allergy Unknown Sinusitis Verified 02/25/25 06:13 adhesive tape Allergy Redness of Verified 02/25/25 06:13 Skin silicone Allergy Unknown Verified 02/25/25 06:13 meperidine (From Demerol) AdvReac Hallucinati Verified 02/25/25 06:13 ng oxycodone (From Percocet) AdvReac Nausea Verified 02/25/25 06:13 propoxyphene AdvReac Nausea and Verified 02/25/25 06:13 Vomiting Vital Signs Vital Signs - 24 hr 02/25/25 00:26 02/25/25 00:30 02/25/25 00:30 Temperature 37.0 C Pulse Rate 90 Respiratory Rate 26 H Blood Pressure 115/70 Pulse Oximetry 98 98 97 Oxygen Delivery Room Air Nasal Cannula Nasal Cannula Oxygen Flow Rate 3 2 Fraction of Inspired Oxygen 02/25/25 00:56 02/25/25 00:56 02/25/25 03:10 Temperature Pulse Rate 68 86 Respiratory Rate 24 H Blood Pressure Pulse Oximetry 98 100 Oxygen Delivery Nasal Cannula CPAP Oxygen Flow Rate 2 Fraction of Inspired Oxygen 02/25/25 04:55 02/25/25 06:00 02/25/25 06:04 Temperature 36.9 C 36.8 C Pulse Rate 67 72 71 Respiratory Rate 15 21 H Blood Pressure 130/69 122/57 L Pulse Oximetry 97 96 Oxygen Delivery Oxygen Flow Rate Fraction of Inspired Oxygen 02/25/25 07:37 02/25/25 07:37 02/25/25 07:42 Temperature Pulse Rate 72 72 72 Respiratory Rate 20 20 20 Blood Pressure Pulse Oximetry 88 L Oxygen Delivery Room Air Oxygen Flow Rate Fraction of Inspired Oxygen 21 02/25/25 08:00 02/25/25 12:00 Temperature 36.9 C 36.3 C L Pulse Rate 78 74 Respiratory Rate 22 H 24 H Blood Pressure 120/70 136/58 L Pulse Oximetry 98 97 Oxygen Delivery Oxygen Flow Rate Fraction of Inspired Oxygen Exam Const: General: comfortable, no acute distress, alert and awake Orientation/consciousness: patient oriented x3 HENMT: Head: normal to inspection Eyes: General: appearance normal, both eyes and all related structures Pupils: Equal, round and reactive pupils present Neck: Neck: normal visual inspection, supple and no JVD Carotids: normal carotid upstroke Resp: Effort & Inspection: normal respiratory effort Auscultation: rales, rhonchi and wheezes Cardio: Rate: regular rate Rhythm: abnormal rhythm irregularly irregular Heart sounds: S1 normal heart sound present, S2 normal heart sound present and no murmurs GI: Auscultation: normal bowel sounds Skin: General skin exam: normal color Neuro: General: patient oriented x3 Cranial nerves: Yes Equal, round and reactive pupils present Extrem: Other: trace bilateral pretibial edema Psych: Appearance: grossly normal Mental Status: mental status grossly abnormal Results Labs and Meds 02/25/25 00:49 02/25/25 08:48 Lab results: Cardiac Enzymes 02/25/25 02/25/25 Range/Units 00:49 03:01 AST 26 (14-36) U/L Troponin I 0.013 0.013 (0.000-0.034) ng/mL CBC 02/25/25 Range/Units 00:49 WBC 11.1 H (4.5-10.0) K/mm3 RBC 2.37 L (4.2-5.4) M/mm3 Hgb 7.3 L (12.0-15.0) g/dL Hct 21.7 L (37.0-47.0) % Plt Count 146 L (150-375) k/mm3 Lymph # (Auto) 0.97 (0.9-3.2) K/mm3 [place] # (Auto) 2.2 H (0.1-0.6) K/mm3 Eos # (Auto) 0.0 (0-0.3) K/mm3 Baso # (Auto) 0.0 (0.0-0.1) K/mm3 Comprehensive Metabolic Panel 02/25/25 02/25/25 02/25/25 Range/Units 00:49 05:29 08:48 Sodium 117 L* 119 L* 121 L (137-145) mmol/L Potassium 4.3 4.4 4.6 (3.4-5.0) mmol/L Chloride 88 L 89 L 90 L (98-107) mmol/L Carbon Dioxide 23 19 L 19 L (22-30) mmol/L BUN 15 D 17 17 (7-17) mg/dL Creatinine 0.90 0.93 0.95 (0.7-1.0) mg/dL Glucose 94 121 H 142 H (65-110) mg/dL Calcium 9.0 9.3 9.0 (8.4-10.2) mg/dL AST 26 (14-36) U/L ALT 25 (6-35) U/L Alkaline Phosphatase 79 (38-126) U/L Total Protein 6.4 (6.3-8.2) g/dL Albumin 3.8 (3.5-5.1) g/dL Intake and Output 02/24/25 02/25/25 02/25/25 23:59 07:59 15:59 Intake Total 350 Balance 350 Intake: IV 350 Cefepime 2 gm In Sodium 50 Chloride 0.9% IV 50 ml @ 100 mls/hr IVPB ONCE ONE Rx#: [id number] Magnesium Sulf 2 gm/Water 50Ml 50 2 gm In 50 ml @ 25 mls/hr IVPB ONCE ONE Rx#:[id number] Vancomycin 1,250 mg/Ns 250 ml 1 250 ,250 mg In 250 ml @ 166.667 mls /hr IVPB ONCE ONE Rx#:[id number] Patient Weight 02/25/25 23:59 Weight 98.3 kg
--- NOTE | 2025-02-25 15:02 | PM.CNNEP ---
Assessment and Plan Assessment and plan (1) Hyponatremia: Code(s): E87.1 - Hypo-osmolality and hyponatremia Status: Acute Assessment and Plan: the patient has hyponatremia. This is longstanding . She has had sodium levels in the high 120s and the low 130s since 2021. etiology of this is unclear. Fluoxetine may be contributing. She is on pantoprazole which sometimes can do this as well. In spite of this, her sodium level has been relatively stable on these medications. In addition the patient has subtle pulmonary disease with her COPD, sleep apnea, and interstitial fibrosis which may contribute to the hyponatremia. Now the patient's sodium is down to 117. The patient was short of breath on admission so may have not been eating well the last few days. So possibly the the balance of her salt intake and fluid intake is leaning toward the fluid. Another possibility is that that lung disease /exacerbation is making the sodium worse. At this point will get a serum osmolality, urine osmolality, cortisol, TSH, and SPEP to look for underlying causes of the hyponatremia. Other causes such as MUNITIONS HANDLER issues and cancer are probably not an issue. Pulmonary issues may contribute as above. The patient's sodium is correcting rather quickly. It was 117 at about 1:00 a.m. and 121 at about 9:00 a.m.. Will check another level now to make sure she is not over correcting. She is not on a fluid restriction. I will put her on 1 right now until we figure out the rate of correction. Patient does not seem to be symptomatic so I am not going to give her 3% saline. (2) CHF (congestive heart failure): Code(s): I50.9 - Heart failure, unspecified Status: Acute Assessment and Plan: The patient has diastolic dysfunction (3) Atrial fibrillation: Code(s): I48.91 - Unspecified atrial fibrillation Status: Acute Assessment and Plan: her heart rate is well controlled. Her rhythm is regular right now because she is in the foot slow a flutter. (4) Depression, major, recurrent, mild: Code(s): F33.0 - Major depressive disorder, recurrent, mild Status: Acute Assessment and Plan: She is on fluoxetine for this. (5) COPD (chronic obstructive pulmonary disease): Qualifiers: COPD type: chronic bronchitis Chronic bronchitis type: simple Qualified Code(s): J41.0 - Simple chronic bronchitis Code(s): J44.9 - Chronic obstructive pulmonary disease, unspecified Status: Acute Assessment and Plan: She is getting supportive care (6) NBA on CPAP: Code(s): G47.33 - Obstructive sleep apnea (adult) (pediatric); Z99.89 - Dependence on other enabling machines and devices Status: Chronic Assessment and Plan: she uses a CPAP mach (7) Hypertension: Qualifiers: Hypertension type: primary hypertension Qualified Code(s): I10 - Essential (primary) hypertension Code(s): I10 - Essential (primary) hypertension Status: Chronic Assessment and Plan: blood pressure looks good. 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 The patient came in the hospital because of shortness of breath. She also had a cough. She is on home oxygen [id number]/minute. She was seen in the emergency room she was diagnosed with hypoxemic respiratory failure and hyponatremia. Patient was admitted to the floor. At 1st the patient was NPO on the floor but then eventually was given some food. Her sodium early on was 117 and has improved to 121 this last blood check. The patient is on fluoxetine which she said she has been on for a long time. The patient is also on pantoprazole. She is not on any other medications that would make her sodium drop. Notably the patient's sodium level has been low going back as far as the medical record show in 2021. Although it has never as bad as it is now. She has no history of cancer. CT brain was negative during the time she was hyponatremic. She has had chest x-rays and CT scans of the chest. She does have some interstitial fibrosis. She has had a TSH in the last year which was normal Review of Systems Constitutional: Constitutional: Reports no additional constitutional complaints Eyes: Eyes: Reports no additional eye complaints ENT: Reports system reviewed and no additional complaints, except as documented Cardiovascular: Cardiovascular: Reports no additional cardiovascular complaints Respiratory: Respiratory: Reports no additional respiratory complaints Gastrointestinal: Gastrointestinal: Reports no additional gastrointestinal complaints Genitourinary: Genitourinary: Reports no additional female genitourinary complaints Musculoskeletal: Musculoskeletal: Reports no additional musculoskeletal complaints Integumentary/Breasts: Skin/Breast: Reports system reviewed and no additional complaints, except as docu Neurologic: Reports system reviewed and no additional complaints, except as documented Psychiatric: Psychiatric: Reports no additional psychiatric complaints Endocrine: Endocrine: Reports no additional endocrine complaints [facility] Past Medical History Medical History Femur fracture, right Surgical screws Fracture, foot Right Metatarsal Anemia Undifferentiated connective tissue disease Depression with anxiety NBA on CPAP Dementia History of ARDS Diastolic dysfunction History of nuclear stress test History of abnormal electrocardiogram Genevieve's thyroiditis Rosacea w/ ocular involvement Depression History of rectocele History of migraine headaches Spondylosis of cervical spine Arthralgia H/O antinuclear antibodies intermittent +ABRAM to 1:320 Vascular disorder seronegative collagen disorder History of squamous cell carcinoma History of staph infection Chronic left shoulder pain arthritis; possibly inflammatory Fracture, rib Aftercare following finger joint replacement surgery Thyroiditis Scoliosis History of left heart catheterization Tubal ligation evaluation Enlarged ureter Supplemental oxygen dependent Hypertension Fibromyalgia CHF (congestive heart failure) Surgical History Surgical History History of cataract extraction with lens replacement History of arthroplasty of knee Left History of removal of pigmented skin lesion Nose 2021 History of hysterectomy Total History of ERCP History of fusion of lumbar spine L2-L5 lumbar fusion Titanium History of laminectomy History of total knee replacement History of cholecystectomy 2002 History of tubal ligation History of D&C History of hip surgery right Total knee replacement status Previous back surgery S/P peroneal tendon repair History of surgical removal of ganglion cyst 1960 H/O hernia repair 1947 Family History Family History Unknown No problems noted. Mother Esophageal cancer Other Alcohol abuse Cancer Hypertension Social History Social History Social History: She lives with her and has 3 biologic children. She also has 1 adopted child. 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 She is a former smoker. Code status full code Smoking packs per day: 1 Smoking cigarettes per day: 20.0 Years smoked: 10 Smoking pack-years: 10.00 Smoking status: Former smoker Tobacco type: cigarettes Second hand tobacco smoke exposure: No Smoking end date: 11/23/81 Additional smoking assessment comments: quit 1981 Alcohol intake: current Drinks per week: 1 Alcohol use details: 0-1 per week Substance use: never Substance use type: does not use Other substance usage details: social occassions Lack of Transportation: No Lack of Food: Never True Current Housing: I Have Housing Concerned About Future Housing: No Difficulty Paying Gas/Electric Bills: No Difficulty Paying for Meds: No Currently Unemployed: No Education: Decline to Answer Difficulty w/ Childcare or Family Care: No Living arrangements: with family Additional living arrangements comments: [facility]. Occupation/Education: retired Gender identity (if verbalized by the patient): Female Spiritual care concerns: No Agree to blood products: Yes Meds Home Medications and Allergies Home Medications ?Medication ?Instructions ?Recorded ?Confirmed ?Type docusate sodium 100 mg capsule 100 mg PO BID 11/18/21 02/25/25 History diclofenac sodium 1 % topical gel 4 g topical QID PRN Pain 05/13/22 02/25/25 History (Arthritis Pain (diclofenac)) telmisartan 40 mg tablet 40 mg PO BID 05/13/22 02/25/25 History spironolactone 25 mg tablet 25 mg PO DAILY 06/15/22 02/25/25 History albuterol sulfate 2.5 mg/3 mL 2.5 mg inhalation Q6-8H PRN 12/28/22 02/25/25 History (0.083 %) solution for nebulization shortness of breath or wheezing naloxone 4 mg/actuation nasal spray 4 mg intranasal Q2-3M PRN opioid 03/22/23 02/25/25 Rx overdose #2 ea fluticasone fur. 200 mcg-umeclid 1 inh inhalation DAILY #180 ea 12/27/23 02/25/25 Rx 62.5 mcg-vilant 25 mcg inhalat.powder (Trelegy Ellipta) albuterol sulfate 90 mcg/actuation 1 - 2 puff inhalation Q4-6H PRN 02/21/24 02/25/25 Rx aerosol inhaler shortness of breath or wheezing #25.5 grams aspirin 81 mg capsule 81 mg PO DAILY 03/08/24 02/25/25 History cholecalciferol (vitamin D3) 50 2,000 unit PO DAILY 03/08/24 02/25/25 History mcg (2,000 unit) capsule omega 3 350 mg-dha 235 mg-epa 90 1 cap PO DAILY 03/08/24 02/25/25 History mg-fish oil 597 mg capsule,delay rel ([place]-3) vibegron 75 mg tablet (Gemtesa) 75 mg PO DAILY 03/08/24 02/25/25 History CPAP 05/21/24 02/25/25 History Held on 02/25/25. Instructions: Patient not sleeping. loratadine 10 mg tablet (Claritin) 10 mg PO DAILY PRN allergy symptoms 05/21/24 02/25/25 History oxygen 05/21/24 02/25/25 History lidocaine 5 % topical patch See Rx Instructions .Route 07/23/24 02/25/25 Rx .COMPLEX #90 patches amlodipine 10 mg tablet 10 mg PO DAILY #90 tabs 08/27/24 02/25/25 Rx fluoxetine 20 mg capsule 20 mg PO TID #270 caps 08/27/24 02/25/25 Rx gabapentin 300 mg capsule 300 mg PO TID #270 caps 08/27/24 02/25/25 Rx montelukast 10 mg tablet 10 mg PO DAILY #90 tabs 08/27/24 02/25/25 Rx pantoprazole 40 mg tablet,delayed 40 mg PO BID #180 tabs 08/27/24 02/25/25 Rx release pravastatin 40 mg tablet 40 mg PO DAILY #90 tabs 08/27/24 02/25/25 Rx levothyroxine 150 mcg tablet 150 mcg PO DAILY #90 tabs 08/28/24 02/25/25 Rx (Synthroid) nebivolol 10 mg tablet (Bystolic) 10 mg PO DAILY #90 tabs 08/28/24 02/25/25 Rx folic acid 1 mg tablet 1 mg PO DAILY #90 tabs 09/03/24 02/25/25 Rx nystatin 100,000 unit/gram topical 1 applic topical BID PRN rash #60 11/01/24 02/25/25 Rx powder grams donepezil 5 mg tablet 5 mg PO QHS #90 tabs 02/06/25 02/25/25 Rx apixaban 5 mg tablet (Eliquis) 5 mg PO Q12HR #180 tabs 02/16/25 02/25/25 Rx benzonatate 200 mg capsule 200 mg PO TID PRN cough 7 days #20 02/16/25 02/25/25 Rx caps furosemide 20 mg tablet (Lasix) 20 mg PO BID PRN weight gain #60 02/16/25 02/25/25 Rx tabs guaifenesin 600 mg tablet, 1,200 mg (2 x 600 mg) PO Q12HR #60 02/16/25 02/25/25 Rx extended release 12 hr (Mucus tabs Relief ER) Allergies Allergy/AdvReac Type Severity Reaction Status Date / Time clindamycin Allergy Severe Chills Verified 02/25/25 06:13 diazepam Allergy Severe suicidal Verified 02/25/25 06:13 ideation levofloxacin (From Levaquin) Allergy Intermediate Itching Verified 02/25/25 06:13 cat dander Allergy Unknown Sinusitis Verified 02/25/25 06:13 dog dander Allergy Unknown Sinusitis Verified 02/25/25 06:13 feathers Allergy Unknown Sinusitis Verified 02/25/25 06:13 grass pollen Allergy Unknown Sinusitis Verified 02/25/25 06:13 house dust Allergy Unknown Sinusitis Verified 02/25/25 06:13 Rabbit Allergy Unknown Sinusitis Verified 02/25/25 06:13 tree and shrub pollen Allergy Unknown Sinusitis Verified 02/25/25 06:13 adhesive tape Allergy Redness of Verified 02/25/25 06:13 Skin silicone Allergy Unknown Verified 02/25/25 06:13 meperidine (From Demerol) AdvReac Hallucinati Verified 02/25/25 06:13 ng oxycodone (From Percocet) AdvReac Nausea Verified 02/25/25 06:13 propoxyphene AdvReac Nausea and Verified 02/25/25 06:13 Vomiting Vital Signs Vital Signs - 24 hr 02/25/25 00:26 02/25/25 00:30 02/25/25 00:30 Temperature 98.6 F Pulse Rate 90 Respiratory Rate 26 H Blood Pressure 115/70 Pulse Oximetry 98 98 97 Oxygen Delivery Room Air Nasal Cannula Nasal Cannula Oxygen Flow Rate 3 2 Fraction of Inspired Oxygen 02/25/25 00:56 02/25/25 00:56 02/25/25 03:10 Temperature Pulse Rate 68 86 Respiratory Rate 24 H Blood Pressure Pulse Oximetry 98 100 Oxygen Delivery Nasal Cannula CPAP Oxygen Flow Rate 2 Fraction of Inspired Oxygen 02/25/25 04:55 02/25/25 06:00 02/25/25 06:04 Temperature 98.5 F 98.3 F Pulse Rate 67 72 71 Respiratory Rate 15 21 H Blood Pressure 130/69 122/57 L Pulse Oximetry 97 96 Oxygen Delivery Oxygen Flow Rate Fraction of Inspired Oxygen 02/25/25 07:37 02/25/25 07:37 02/25/25 07:42 Temperature Pulse Rate 72 72 72 Respiratory Rate 20 20 20 Blood Pressure Pulse Oximetry 88 L Oxygen Delivery Room Air Oxygen Flow Rate Fraction of Inspired Oxygen 21 02/25/25 08:00 02/25/25 08:00 02/25/25 10:00 Temperature 98.4 F Pulse Rate 78 78 75 Respiratory Rate 22 H Blood Pressure 120/70 Pulse Oximetry 98 Oxygen Delivery Oxygen Flow Rate Fraction of Inspired Oxygen 02/25/25 12:00 02/25/25 12:00 02/25/25 14:00 Temperature 97.4 F L Pulse Rate 74 76 78 Respiratory Rate 24 H Blood Pressure 136/58 L Pulse Oximetry 97 Oxygen Delivery Oxygen Flow Rate Fraction of Inspired Oxygen 02/25/25 14:05 02/25/25 14:05 02/25/25 14:09 Temperature Pulse Rate 72 72 76 Respiratory Rate 20 20 20 Blood Pressure Pulse Oximetry 98 Oxygen Delivery Nasal Cannula Oxygen Flow Rate 2 Fraction of Inspired Oxygen Exam Narrative: Exam Narrative: Well developed well-nourished female in no acute distress Skin is warm and dry without rash Head normocephalic atraumatic Eyes normal sclerae and conjunctivae Mouth normal lips teeth and gums Neck no nodes no thyromegaly no carotid bruits Axillae no nodes Back no CVA tenderness Lungs symmetric and clear to auscultation and percussion Heart regular rate and rhythm without rub or gallop Abdomen bowel sounds positive soft nontender, no HSM, masses, or bruits. Extremities no cyanosis, clubbing, or edema Pulses 2+ equal in radial arteries Psychological not anxious or depressed Neuro alert and oriented x2 very poor short-term memory. motor 5/5 cranial nerves 2-12 intact reflexes 2+ and equal in the biceps and patellar tendons cerebellar normal rapid alternating movements Results Lab Results 02/25/25 00:49 02/25/25 08:48 Lab results: Most recent lab results ABG pH 7.557 (7.350-7.450) H* 02/25/25 00:41 ABG pCO2 23.8 mmHg (35.0-45.0) L* 02/25/25 00:41 ABG pO2 91.3 mmHg (80.0-100.0) 02/25/25 00:41 ABG HCO3 20.7 mEq/l (22.0-26.0) L 02/25/25 00:41 ABG O2 Saturation 98.0 % (95.0-100.0) 02/25/25 00:41 Calcium 9.0 mg/dL (8.4-10.2) 02/25/25 08:48 Magnesium 1.5 mg/dL (1.6-2.3) L 02/25/25 00:49
[2025-02-25 15:49] LABS: Hematocrit 22.2 % (37.0-47.0); Hemoglobin 7.4 g/dL (12.0-15.0); Immature Granulocyte Percent A 1.9 % (0-0.5); Immature Platelet Fraction Pct 9.4 % (0.9-11.2); Lymphocytes Absolute Auto 0.32 K/mm3 (0.9-3.2); Mean Corpuscular HGB Conc 33.3 g/dl (32-36); Mean Corpuscular Hemoglobin 30.7 pg (26-34); Mean Corpuscular Volume 92.1 fl (80-100); Nucleated Red Blood Cells Absolute Auto 0.000 K/mm3 (0.0-0.012); Nucleated Red Blood Cells Perc 0.0 % (0.0-0.2); Platelet Count Result 140 k/mm3 (150-375); Red Blood Count 2.41 M/mm3 (4.2-5.4); White Blood Count 8.9 K/mm3 (4.5-10.0)
[2025-02-25 16:09] LABS: Alanine Aminotransferase 27 U/L (6-35); Albumin Level 4.0 g/dL (3.5-5.1); Alkaline Phosphatase 79 U/L (38-126); Anion Gap 10 mmol/L (4-12); Aspartate Amino Transferase 41 U/L (14-36); Bilirubin,Total 1.0 mg/dL (0.2-1.3); Blood Urea Nitrogen 19 mg/dL (7-17); Calcium 8.9 mg/dL (8.4-10.2); Carbon Dioxide 21 mmol/L (22-30); Chloride 91 mmol/L (98-107); Estimated CRCL calculation 49 ml/min; Estimated Glomerular Filt Rate 59; Glucose 148 mg/dL (65-110); Potassium 4.2 mmol/L (3.4-5.0); Sodium 122 mmol/L (137-145); Total Protein 6.7 g/dL (6.3-8.2)
[2025-02-25 16:25] LABS: Anisocytosis 1+; Ovalocytes Occasional; Schistocytes Rare
[2025-02-25 16:39] LABS: Thyroid Stimulating Hormone Reflex 1.610 uIU/mL (0.465-4.68)
[2025-02-25] MEDS: PANTOPRAZOLE 40 MG TABLET PO (21:02)
[2025-02-25] MEDS: GABAPENTIN 300 MG CAPSULE PO (21:02)
[2025-02-25] MEDS: guaiFENesin 12 HR 600 MG TABCR 1200 MG PO (21:03)
[2025-02-25] MEDS: DOCUSATE SODIUM 100 MG CAPSULE PO (21:03)
[2025-02-25] MEDS: APIXABAN 5 MG TABLET PO (21:03)
[2025-02-25] MEDS: DONEPEZIL HCL 5 MG TABLET PO (21:03)
[2025-02-25] MEDS: TELMISARTAN 40 MG TABLET PO (21:03)
[2025-02-25 21:08] LABS: Anion Gap 8 mmol/L (4-12); Blood Urea Nitrogen 18 mg/dL (7-17); Calcium 9.4 mg/dL (8.4-10.2); Carbon Dioxide 23 mmol/L (22-30); Chloride 92 mmol/L (98-107); Estimated CRCL calculation 51 ml/min; Estimated Glomerular Filt Rate > 60; Glucose 154 mg/dL (65-110); Potassium 4.1 mmol/L (3.4-5.0); Sodium 123 mmol/L (137-145)
[2025-02-26] VITALS (25 sets, daily range): BP systolic 103–123; BP diastolic 47–85; PULSE 67–84; RESP 18–22; TEMP 36.6–36.9; O2SAT 90–97
[2025-02-26] MEDS: IPRATROPIUM 0.5 MG/ALBUTEROL SULFATE 2.5 MG (BASE) AMPUL.NEB 3 ML (02:16)
[2025-02-26] MEDS: IPRATROPIUM 0.5 MG/ALBUTEROL SULFATE 2.5 MG (BASE) AMPUL.NEB 3 ML INHALATION ×4 (02:16→21:20)
[2025-02-26 05:14] LABS: Anion Gap 9 mmol/L (4-12); Blood Urea Nitrogen 16 mg/dL (7-17); Calcium 9.1 mg/dL (8.4-10.2); Carbon Dioxide 21 mmol/L (22-30); Chloride 95 mmol/L (98-107); Estimated CRCL calculation 60 ml/min; Estimated Glomerular Filt Rate > 60; Glucose 138 mg/dL (65-110); Potassium 4.8 mmol/L (3.4-5.0); Sodium 125 mmol/L (137-145)
[2025-02-26] MEDS: CEFEPIME 2 GM in SODIUM CHLORIDE 0.9% IV 50 ML 100 ML IVPB ×2 (05:32→16:58)
[2025-02-26] MEDS: GABAPENTIN 300 MG CAPSULE PO ×3 (05:32→21:14)
[2025-02-26] MEDS: LEVOTHYROXINE SODIUM 150 MCG TABLET PO (05:33)
--- NOTE | 2025-02-26 07:43 | P.PNIM_ITS ---
Assessment and Plan Assessment and Plan (1) Acute and chronic respiratory failure: Qualifiers: Respiratory failure complication: hypoxia Qualified Code(s): J96.21 - Acute and chronic respiratory failure with hypoxia Code(s): J96.20 - Acute and chronic respiratory failure, unspecified whether with hypoxia or hypercapnia Status: Acute Assessment and Plan: At baseline requires 2 L nasal cannula at all times, remains at 2 L nasal cannula with appropriate O2 saturations. Placed on BiPAP in ER for increased work of breathing. * ABG: PH 7.557, pCO2 23.8, PO2 91.3, HC03 20.7, O2 content 11.6, O2 saturation 98% -no hypoxemia * Likely multifactorial, CHF exacerbation, HAP, asthma excerbation? * Will continue 40 mg Lasix daily * Antibiotic therapy for pneumonia * Does not require BiPAP at this time * Maintain baseline O2 supplementation * Duonebz q6H and Albuterol q2H prn * Solu-Medrol 40 mg IVq12H * At baseline O2 requirement - 99% on 2L NC (2) Pneumonia: Code(s): J18.9 - Pneumonia, unspecified organism Status: Acute Assessment and Plan: * CXR: Persistent interstitial and mild airspace opacities in both lungs, left greater than right, which is most likely related to chronic initial lung disease with differential including recurrent mild pulmonary edema or pneumonia * Risk Factors: Recent hospitalization 1-1/2 weeks prior to this admission * started on HAP tx: Cefepime * Viral PCR: negative for Flu/COVID/RSV * Consider ordering legionella, mycoplasma and pneumococcal * no supplemental O2 requirement * supportive treatment * trend labs * Monitor vital signs, I&Os, neuro status and patient is a fall risk * Follow WBC, serum electrolytes, temperature curves and cultures * Send sputum cultures * Continue IV abx (3) Acute hyponatremia: Code(s): E87.1 - Hypo-osmolality and hyponatremia Status: Acute Assessment and Plan: * Upon admission: Na 117 * Longstanding history of hyponatremia with sodium levels in the high 120s/low 130s since 2021 * Multifactorial, fluoxetine may be contributory, pantoprazole * Serum osmolality, urine osmolality, cortisol, TSH, SPEP * Nephrology consulted * Fluid restriction * Ensure no rapid over-correction * Asymptomatic, hold on 3% saline * 02/26: Na 125 (4) Acute exacerbation of CHF (congestive heart failure): Qualifiers: Heart failure type: diastolic Qualified Code(s): I50.33 - Acute on chronic diastolic (congestive) heart failure Code(s): I50.9 - Heart failure, unspecified Status: Acute Assessment and Plan: * Symptoms: Shortness of breath, lower extremity swelling * Current medications: Continue IV furosemide * BNP: 7930 * EKG: Atrial flutter/tachycardia * Chest XR: Persistent interstitial and mild airspace opacities in both lungs, left greater than right, which is most likely related to chronic initial lung disease with differential including recurrent mild pulmonary edema or pneumonia. * Echo: 02/13/25: EF 55-60%, severe enlargement left atrial chamber, moderate enlargement right atrial chamber, mild pulmonary hypertension, trace AVR/TVR, mild MVR * Monitor vital signs, I&Os, BUN/creatinine, daily weights, neuro status and patient is a fall risk * Monitor serum electrolytes, Keep serum Potassium>4 and serum Magnesium>2 and CBC (5) Atrial fibrillation: Code(s): I48.91 - Unspecified atrial fibrillation Status: Acute Assessment and Plan: * Keep serum potassium >4 and keep magnesium >2 * Consult Cardiology for further management, appreciate assistance and recommendations * Lovenox initiated * Continue Eliquis * Heart rate well-controlled (6) Hypothyroidism: Qualifiers: Hypothyroidism type: acquired Qualified Code(s): E03.9 - Hypothyroidism, unspecified Code(s): E03.9 - Hypothyroidism, unspecified Status: Chronic Assessment and Plan: * Continue Synthroid * Repeat TSH (7) NBA on CPAP: Code(s): G47.33 - Obstructive sleep apnea (adult) (pediatric); Z99.89 - Dependence on other enabling machines and devices Status: Chronic Assessment and Plan: * Continue at-home CPAP (8) Hypertension: Qualifiers: Hypertension type: primary hypertension Qualified Code(s): I10 - Essential (primary) hypertension Code(s): I10 - Essential (primary) hypertension Status: Chronic Assessment and Plan: * Patient's blood pressure was reviewed on 02/25 * Blood pressure remains well controlled * Will continue current medications (9) Depression, major, recurrent, mild: Code(s): F33.0 - Major depressive disorder, recurrent, mild Status: Acute Assessment and Plan: * Continue fluoxetine Subjective Date/time seen: 02/26/25 07:43 Interval history: Marialuisa Darden is an 79-year-old female with a past medical history dementia, chronic respiratory failure, diastolic dysfunction, anemia, COPD, HTN, fibromyalgia among other chronic medical conditions presents here with shortness of breath and cough. 02/26/2025 Patient is sitting comfortably at the bedside during examination. States that she feels much better today than she did tomorrow. Accompanied by who also agrees that the patient appears and sounds much better today. A&O x3. Remains afebrile without leukocytosis. Sodium increased to 125 today. Continue to monitor, increasing slowing. Review of Systems 2 Review of Systems: All systems reviewed & are unremarkable except as noted in HPI and below Exam Narrative: Gen -chronically ill appearing female in no acute respiratory distress who is nontoxic-appearing lying semi recumbent in bed HEENT - normocephalic. ?Atraumatic. ?Pupils equal round and reactive. ?Extraocular motions intact. ?Sclera clear and anicteric. ?Nares patent. ?Oropharynx was clear. ?No oral lesions. ?Moist mucous membranes. ?Tongue was midline. ?Palate marjorie symmetrically. ?No facial asymmetry. Neck - neck was supple. ?No dominant adenopathy, thyromegaly or masses. ? Chest - lungs are clear to auscultation bilaterally. ?No wheezes or crackles. CV -abnormal rhythm, irregularly irregular,, normal rate, S1-S2. No murmurs gallops or rubs. Abd - abdomen was soft. ?Nontender. ?Nondistended. ?Positive bowel sounds. ?No organomegaly or masses. Ext -minimal trace lower extremity edema no clubbing, cyanosis. ?2+ DP pulses bilaterally. Neuro - patient is alert and oriented x2. ?Strength is 5/5 in both upper and lower extremities. ?Cranial nerves 2-12 are intact. ?Speech is clear. Psych - normal mood and affect. ?Patient is pleasant and cooperative. Skin - warm and dry. ?No rashes noted. Objective Data Vital Signs Vital Signs: Vital Signs - 24 hr 02/25/25 08:00 02/25/25 08:00 02/25/25 10:00 Temperature 98.4 F Pulse Rate 78 78 75 Respiratory Rate 22 H Blood Pressure 120/70 Pulse Oximetry 98 Oxygen Delivery Oxygen Flow Rate 02/25/25 12:00 02/25/25 12:00 02/25/25 14:00 Temperature 97.4 F L Pulse Rate 74 76 78 Respiratory Rate 24 H Blood Pressure 136/58 L Pulse Oximetry 97 Oxygen Delivery Oxygen Flow Rate 02/25/25 14:05 02/25/25 14:05 02/25/25 14:09 Temperature Pulse Rate 72 72 76 Respiratory Rate 20 20 20 Blood Pressure Pulse Oximetry 98 Oxygen Delivery Nasal Cannula Oxygen Flow Rate 2 02/25/25 16:00 02/25/25 16:00 02/25/25 18:00 Temperature 98.3 F Pulse Rate 75 77 74 Respiratory Rate 20 Blood Pressure 113/75 Pulse Oximetry 97 Oxygen Delivery Oxygen Flow Rate 02/25/25 19:41 02/25/25 19:43 02/25/25 20:00 Temperature 97.6 F 97.6 F Pulse Rate 85 85 Respiratory Rate 24 H 24 H Blood Pressure 124/59 L 124/59 L Pulse Oximetry 96 96 99 Oxygen Delivery Nasal Cannula Oxygen Flow Rate 3 02/25/25 20:00 02/25/25 20:05 02/25/25 20:10 Temperature Pulse Rate 73 74 76 Respiratory Rate 20 20 Blood Pressure Pulse Oximetry Oxygen Delivery Oxygen Flow Rate 02/25/25 20:15 02/25/25 22:00 02/25/25 22:30 Temperature Pulse Rate 74 77 84 Respiratory Rate 20 Blood Pressure Pulse Oximetry 97 97 Oxygen Delivery Nasal Cannula CPAP Oxygen Flow Rate 2 02/26/25 00:00 02/26/25 00:00 02/26/25 00:00 Temperature 97.9 F Pulse Rate 77 75 Respiratory Rate 20 Blood Pressure 103/85 Pulse Oximetry 91 93 Oxygen Delivery CPAP Oxygen Flow Rate 5 02/26/25 02:00 02/26/25 02:16 02/26/25 02:19 Temperature Pulse Rate 68 76 84 Respiratory Rate 18 Blood Pressure Pulse Oximetry 97 Oxygen Delivery CPAP Oxygen Flow Rate 02/26/25 02:21 02/26/25 04:00 02/26/25 04:00 Temperature Pulse Rate 75 78 Respiratory Rate 18 Blood Pressure Pulse Oximetry 93 Oxygen Delivery CPAP Oxygen Flow Rate 5 02/26/25 04:00 02/26/25 06:00 02/26/25 07:25 Temperature 98.4 F 97.9 F Pulse Rate 76 78 78 Respiratory Rate 20 22 H Blood Pressure 113/51 L 105/56 L Pulse Oximetry 92 94 Oxygen Delivery Oxygen Flow Rate Intake/Output Intake/Output: Intake & Output 02/23/25 02/24/25 02/25/25 02/26/25 23:59 23:59 23:59 23:59 Intake Total 1120 250 Output Total 1350 400 Balance -230 -150 Meds/Results Medications: Active Medications Generic Name Dose Route Start Last Admin Trade Name Freq PRN Reason Stop Dose Admin Acetaminophen 650 mg 02/25/25 02:42 Acetaminophen 325 Mg Tablet PO Q4H PRN Mild Pain (1-3) or Fever Albuterol 2.5 mg 02/25/25 15:24 Albuterol Sulfate Neb 2.5 Mg/3 Ml Inh INHALATION Q6HRT PRN Shortness Of Breath Or Wheezing Albuterol/Ipratropium 3 ml 02/25/25 08:00 02/26/25 02:16 Ipratropium 0.5 Mg/Albuterol Sulfate 2.5 Mg (Base) Ampul.Neb 3 Ml INHALATION 3 ml Q6HRT VIN Administration Amlodipine Besylate 10 mg 02/26/25 09:00 Amlodipine Besylate 10 Mg Tablet PO DAILY VIN Apixaban 5 mg 02/25/25 21:00 02/25/25 21:03 Apixaban 5 Mg Tablet PO 5 mg Q12HR VIN Administration Aspirin 81 mg 02/26/25 09:00 Aspirin 81 Mg Enteric Tablet PO QAM VIN Benzonatate 200 mg 02/25/25 15:42 Benzonatate 100 Mg Capsule PO TID PRN cough Diclofenac Sodium 0 applic 02/25/25 15:24 Diclofenac Sodium 1% 100 Gm Gel (*Bkc) TOPICAL QID PRN JOINT PAIN Docusate Sodium 100 mg 02/25/25 21:00 02/25/25 21:03 Docusate Sodium 100 Mg Capsule PO 100 mg Q12HR VIN Administration Donepezil HCl 5 mg 02/25/25 21:00 02/25/25 21:03 Donepezil Hcl 5 Mg Tablet PO 5 mg QHS VIN Administration Fish Oil 1 gm 02/26/25 09:00 [place] 3 Polyunsat Fatty Acids 1 Gm Cap PO DAILY VIN Fluoxetine HCl 20 mg 02/25/25 22:00 02/26/25 05:32 Fluoxetine Hcl 20 Mg Capsule PO 20 mg Q8HR VIN Administration Fluticasone/Umeclidinium/Vilanterol 1 puff 02/26/25 08:00 Fluticasone/Umeclidin/Vilanter 200-62.5-25 Mcg Ellipta INHALATION DAILYRT VIN Folic Acid 1 mg 02/26/25 09:00 Folic Acid 1 Mg Tablet PO DAILY VIN Gabapentin 300 mg 02/25/25 15:35 02/26/25 05:32 Gabapentin 300 Mg Capsule PO 300 mg Q8HR VIN Administration Guaifenesin 1,200 mg 02/25/25 21:00 02/25/25 21:03 Guaifenesin 12 Hr 600 Mg Tabcr PO 1,200 mg Q12HR VIN Administration Cefepime HCl 2 gm/ Sodium 50 mls @ 100 mls/hr 02/25/25 17:00 02/26/25 05:32 Chloride IVPB 100 mls/hr Q12H VIN Administration Doxycycline Hyclate 100 mg/ 100 mls @ 100 mls/hr 02/25/25 10:30 02/25/25 21:01 Sodium Chloride IVPB 03/01/25 21:59 100 mls/hr Q12HR VIN Administration Levothyroxine Sodium 150 mcg 02/26/25 06:30 02/26/25 05:33 Levothyroxine Sodium 150 Mcg Tablet PO 150 mcg DAILY@0630 VIN Administration Lidocaine 1 patch 02/26/25 09:00 Lidocaine 5% Patch TRANSDERM DAILY VIN Loratadine 10 mg 02/25/25 15:24 Loratadine 10 Mg Tablet PO DAILY PRN allergy symptoms Methylprednisolone Sodium Succinate 40 mg 02/25/25 21:00 02/25/25 21:03 Methylprednisolone Sod Succ 40 Mg Vial IV PUSH 40 mg Q12HR VIN Administration Miscellaneous Information 1 each 02/26/25 00:01 02/26/25 01:33 Naloxone Nasal [place] Is Nonform; Ok To Hold This Until Pt Discharged? XX 03/28/25 00:00 Not Given CLARIFY VIN Miscellaneous Information 1 each 02/25/25 15:48 Central Supply Item XX 02/26/25 15:47 PRN PRN Informational Miscellaneous Information 1 each 02/26/25 00:01 02/26/25 01:33 Gemtesa Is Nonform; Can Pt Use From Home? XX 03/28/25 00:00 Not Given CLARIFY VIN Montelukast Sodium 10 mg 02/26/25 09:00 Montelukast Sodium 10 Mg Tablet PO DAILY [facility] Nebivolol 10 mg 02/26/25 09:00 Nebivolol Hcl 5 Mg Tablet PO DAILY [facility] Non-Formulary Medication 4 mg 02/25/25 15:24 Naloxone NASAL Q2-3M PRN opioid overdose Non-Formulary Medication 75 mg 02/26/25 09:00 Vibegron [Gemtesa] PO 03/28/25 08:59 DAILY [facility] Ondansetron HCl 4 mg 02/25/25 02:42 Ondansetron Inj 4 Mg/2 Ml Vial IV PUSH Q4H PRN Nausea Pantoprazole Sodium 40 mg 02/25/25 21:00 02/25/25 21:02 Pantoprazole 40 Mg Tablet PO 40 mg Q12HR VIN Administration Pravastatin Sodium 40 mg 02/26/25 09:00 Pravastatin Sodium 20 Mg Tablet PO DAILY [facility] Spironolactone 25 mg 02/26/25 09:00 Spironolactone 25 Mg Tablet PO DAILY [facility] Telmisartan 40 mg 02/25/25 21:00 02/25/25 21:03 Telmisartan 40 Mg Tablet PO 40 mg Q12HR VIN Administration Vitamin D 50 mcg 02/26/25 09:00 Cholecalciferol (Vitamin D3) 25 Mcg (1,000 Units) Tablet PO DAILY [facility] Radiology Results: ITS Impressions Chest X-Ray 02/25/25 11:03 IMPRESSION: 1. Persistent interstitial and mild airspace opacities in both lungs, left greater than right, which is most likely related to chronic initial lung disease with differential including recurrent mild pulmonary edema or pneumonia. Labs Labs: Laboratory Results - last 24 hr 02/25/25 02/25/25 02/25/25 08:48 15:37 20:37 WBC 8.9 RBC 2.41 L Hgb 7.4 L Hct 22.2 L MCV 92.1 MCH 30.7 MCHC 33.3 RDW 14.6 H Plt Count 140 L MPV 11.5 H Immature Gran % (Auto) 1.9 H Neut % (Auto) 89.7 H Lymph % (Auto) 3.6 L [place] % (Auto) 4.5 Eos % (Auto) 0.2 Baso % (Auto) 0.1 L Lymph # (Auto) 0.32 L [place] # (Auto) 0.4 Eos # (Auto) 0.0 Baso # (Auto) 0.0 Abs Immat Gran (auto) 0.17 H Absolute Neuts (auto) 7.9 H Absolute Nucleated RBC 0.000 Band Neutrophils % Not Reportable Nucleated RBC % 0.0 Platelet Estimate Adequate % Immature Plt Fraction 9.4 Anisocytosis 1+ Ovalocytes Occasional Schistocytes Rare Sodium 121 L 122 L 123 L Potassium 4.6 4.2 4.1 Chloride 90 L 91 L 92 L Carbon Dioxide 19 L 21 L 23 Anion Gap 12 10 8 BUN 17 19 H 18 H Creatinine 0.95 0.92 0.88 Estim Creat Clear Calc 47 49 51 Estimated GFR 56 L 59 > 60 Glucose 142 H 148 H 154 H Serum Osmolality Cancelled Calcium 9.0 8.9 9.4 Total Bilirubin 1.0 AST 41 H ALT 27 Alkaline Phosphatase 79 Total Protein 6.7 Albumin 4.0 TSH (Reflex) 1.610 Random Cortisol 4.72 Ur Random Sodium 02/25/25 02/26/25 21:29 04:01 WBC RBC Hgb Hct MCV MCH MCHC RDW Plt Count MPV Immature Gran % (Auto) Neut % (Auto) Lymph % (Auto) [place] % (Auto) Eos % (Auto) Baso % (Auto) Lymph # (Auto) [place] # (Auto) Eos # (Auto) Baso # (Auto) Abs Immat Gran (auto) Absolute Neuts (auto) Absolute Nucleated RBC Band Neutrophils % Nucleated RBC % Platelet Estimate % Immature Plt Fraction Anisocytosis Ovalocytes Schistocytes Sodium 125 L Potassium 4.8 Chloride 95 L Carbon Dioxide 21 L Anion Gap 9 BUN 16 Creatinine 0.74 Estim Creat Clear Calc 60 Estimated GFR > 60 Glucose 138 H Serum Osmolality Calcium 9.1 Total Bilirubin AST ALT Alkaline Phosphatase Total Protein Albumin TSH (Reflex) Random Cortisol Ur Random Sodium 22 Quality VTE Prophylaxis VTE prophylaxis: pharmacologic ordered
[2025-02-26 08:07] LABS: Hematocrit 21.7 % (37.0-47.0); Hemoglobin 7.3 g/dL (12.0-15.0); Immature Granulocyte Percent A 1.3 % (0-0.5); Immature Platelet Fraction Pct 9.4 % (0.9-11.2); Lymphocytes Absolute Auto 0.21 K/mm3 (0.9-3.2); Mean Corpuscular HGB Conc 33.6 g/dl (32-36); Mean Corpuscular Hemoglobin 32.6 pg (26-34); Mean Corpuscular Volume 96.9 fl (80-100); Nucleated Red Blood Cells Absolute Auto 0.000 K/mm3 (0.0-0.012); Nucleated Red Blood Cells Perc 0.0 % (0.0-0.2); Platelet Count Result 122 k/mm3 (150-375); Red Blood Count 2.24 M/mm3 (4.2-5.4); White Blood Count 8.2 K/mm3 (4.5-10.0)
--- NOTE | 2025-02-26 08:16 | P.PNNP_ITS ---
Progress Note: A&P Assessment and Plan (1) Hyponatremia: Code(s): E87.1 - Hypo-osmolality and hyponatremia Status: Acute Assessment and Plan: the patient has hyponatremia. This is longstanding . She has had sodium levels in the high 120s and the low 130s since 2021. No apparent cancer. Head CT negative chest x-rays Show multiple issues such as interstitial fibrosis, COPD, sleep apnea. cortisol was low. she is on methylprednisolone. Will retest this down the line after she is off the steroids TSH is okay the patient is on fluoxetine which can contribute. Serum in urine osmolality and SPEP are pending etiology of The hyponatremia is likely a combination of lung disease plus the fluoxetine. The sodium level started at 117 but with observation the level came up on its own to 123 21hours later. This morning it is 125 so correction is appropriate. Will use 125 as our new baseline. Will continue current therapy as the correction rate seems to be doing pretty well. I will leave it up to the hospital/ PCP as an outpatient to wean the fluoxetine. Because of her significant dementia this medicine may be helping her a lot so I do not want to just stop it and she has been on it for years with a stable sodium so I do not think we necessarily have to do this right now as long as the numbers are getting better. will check another sodium this afternoon (2) CHF (congestive heart failure): Code(s): I50.9 - Heart failure, unspecified Status: Acute Assessment and Plan: The patient has diastolic dysfunction if the patient needs diuretics in the future she should get a salt tablet with each dose of diuretics to keep the sodium from dropping (3) Atrial fibrillation: Code(s): I48.91 - Unspecified atrial fibrillation Status: Acute Assessment and Plan: her heart rate is well controlled. Her rhythm is regular right now because she is in the foot slow a flutter. (4) Depression, major, recurrent, mild: Code(s): F33.0 - Major depressive disorder, recurrent, mild Status: Acute Assessment and Plan: She is on fluoxetine for this. (5) COPD (chronic obstructive pulmonary disease): Qualifiers: COPD type: chronic bronchitis Chronic bronchitis type: simple Qualified Code(s): J41.0 - Simple chronic bronchitis Code(s): J44.9 - Chronic obstructive pulmonary disease, unspecified Status: Acute Assessment and Plan: She is getting supportive care (6) NBA on CPAP: Code(s): G47.33 - Obstructive sleep apnea (adult) (pediatric); Z99.89 - Dependence on other enabling machines and devices Status: Chronic Assessment and Plan: she uses a CPAP mach (7) Hypertension: Qualifiers: Hypertension type: primary hypertension Qualified Code(s): I10 - Essential (primary) hypertension Code(s): I10 - Essential (primary) hypertension Status: Chronic Assessment and Plan: blood pressure looks good. Subjective Date/time seen: 02/26/25 08:16 Interval history: patient is alert. No shortness of breath. She does not remember anything of late. Review of Systems Cardiovascular: Cardiovascular: Reports no additional cardiovascular complaints Respiratory: Respiratory: Reports no additional respiratory complaints Gastrointestinal: Gastrointestinal: Reports no additional gastrointestinal complaints Genitourinary: Genitourinary: Reports no additional female genitourinary complaints Exam Narrative: WDWN in NAD skin no rash head ncat lungs clear cor reg no rub abd BS+ nontender and soft ext no edema. Objective Data Vital Signs Vital Signs: Vital Signs - 24 hr 02/25/25 10:00 02/25/25 12:00 02/25/25 12:00 Temperature 97.4 F L Pulse Rate 75 74 76 Respiratory Rate 24 H Blood Pressure 136/58 L Pulse Oximetry 97 Oxygen Delivery Oxygen Flow Rate 02/25/25 14:00 02/25/25 14:05 02/25/25 14:05 Temperature Pulse Rate 78 72 72 Respiratory Rate 20 20 Blood Pressure Pulse Oximetry 98 Oxygen Delivery Nasal Cannula Oxygen Flow Rate 2 02/25/25 14:09 02/25/25 16:00 02/25/25 16:00 Temperature 98.3 F Pulse Rate 76 75 77 Respiratory Rate 20 20 Blood Pressure 113/75 Pulse Oximetry 97 Oxygen Delivery Oxygen Flow Rate 02/25/25 18:00 02/25/25 19:41 02/25/25 19:43 Temperature 97.6 F 97.6 F Pulse Rate 74 85 85 Respiratory Rate 24 H 24 H Blood Pressure 124/59 L 124/59 L Pulse Oximetry 96 96 Oxygen Delivery Oxygen Flow Rate 02/25/25 20:00 02/25/25 20:00 02/25/25 20:05 Temperature Pulse Rate 73 74 Respiratory Rate 20 Blood Pressure Pulse Oximetry 99 Oxygen Delivery Nasal Cannula Oxygen Flow Rate 3 02/25/25 20:10 02/25/25 20:15 02/25/25 22:00 Temperature Pulse Rate 76 74 77 Respiratory Rate 20 20 Blood Pressure Pulse Oximetry 97 Oxygen Delivery Nasal Cannula Oxygen Flow Rate 2 02/25/25 22:30 02/26/25 00:00 02/26/25 00:00 Temperature 97.9 F Pulse Rate 84 77 Respiratory Rate 20 Blood Pressure 103/85 Pulse Oximetry 97 91 93 Oxygen Delivery CPAP CPAP Oxygen Flow Rate 5 02/26/25 00:00 02/26/25 02:00 02/26/25 02:16 Temperature Pulse Rate 75 68 76 Respiratory Rate 18 Blood Pressure Pulse Oximetry Oxygen Delivery Oxygen Flow Rate 02/26/25 02:19 02/26/25 02:21 02/26/25 04:00 Temperature Pulse Rate 84 75 Respiratory Rate 18 Blood Pressure Pulse Oximetry 97 93 Oxygen Delivery CPAP CPAP Oxygen Flow Rate 5 02/26/25 04:00 02/26/25 04:00 02/26/25 06:00 Temperature 98.4 F Pulse Rate 78 76 78 Respiratory Rate 20 Blood Pressure 113/51 L Pulse Oximetry 92 Oxygen Delivery Oxygen Flow Rate 02/26/25 07:25 Temperature 97.9 F Pulse Rate 78 Respiratory Rate 22 H Blood Pressure 105/56 L Pulse Oximetry 94 Oxygen Delivery Oxygen Flow Rate Intake/Output Intake/Output: Intake & Output 02/23/25 02/24/25 02/25/25 02/26/25 23:59 23:59 23:59 23:59 Intake Total 1120 250 Output Total 1350 400 Balance -230 -150 Meds/Results Medications: Active Medications Generic Name Dose Route Start Last Admin Trade Name Freq PRN Reason Stop Dose Admin Acetaminophen 650 mg 02/25/25 02:42 Acetaminophen 325 Mg Tablet PO Q4H PRN Mild Pain (1-3) or Fever Albuterol 2.5 mg 02/25/25 15:24 Albuterol Sulfate Neb 2.5 Mg/3 Ml Inh INHALATION Q6HRT PRN Shortness Of Breath Or Wheezing Albuterol/Ipratropium 3 ml 02/25/25 08:00 02/26/25 02:16 Ipratropium 0.5 Mg/Albuterol Sulfate 2.5 Mg (Base) Ampul.Neb 3 Ml INHALATION 3 ml Q6HRT VIN Administration Amlodipine Besylate 10 mg 02/26/25 09:00 Amlodipine Besylate 10 Mg Tablet PO DAILY [facility] Apixaban 5 mg 02/25/25 21:00 02/25/25 21:03 Apixaban 5 Mg Tablet PO 5 mg Q12HR VIN Administration Aspirin 81 mg 02/26/25 09:00 Aspirin 81 Mg Enteric Tablet PO QAM VIN Benzonatate 200 mg 02/25/25 15:42 Benzonatate 100 Mg Capsule PO TID PRN cough Diclofenac Sodium 0 applic 02/25/25 15:24 Diclofenac Sodium 1% 100 Gm Gel (*Bkc) TOPICAL QID PRN JOINT PAIN Docusate Sodium 100 mg 02/25/25 21:00 02/25/25 21:03 Docusate Sodium 100 Mg Capsule PO 100 mg Q12HR VIN Administration Donepezil HCl 5 mg 02/25/25 21:00 02/25/25 21:03 Donepezil Hcl 5 Mg Tablet PO 5 mg QHS VIN Administration Fish Oil 1 gm 02/26/25 09:00 [place] 3 Polyunsat Fatty Acids 1 Gm Cap PO DAILY [facility] Fluoxetine HCl 20 mg 02/25/25 22:00 02/26/25 05:32 Fluoxetine Hcl 20 Mg Capsule PO 20 mg Q8HR VIN Administration Fluticasone/Umeclidinium/Vilanterol 1 puff 02/26/25 08:00 Fluticasone/Umeclidin/Vilanter 200-62.5-25 Mcg Ellipta INHALATION DAILYRT [facility] Folic Acid 1 mg 02/26/25 09:00 Folic Acid 1 Mg Tablet PO DAILY [facility] Gabapentin 300 mg 02/25/25 15:35 02/26/25 05:32 Gabapentin 300 Mg Capsule PO 300 mg Q8HR VIN Administration Guaifenesin 1,200 mg 02/25/25 21:00 02/25/25 21:03 Guaifenesin 12 Hr 600 Mg Tabcr PO 1,200 mg Q12HR VIN Administration Cefepime HCl 2 gm/ Sodium 50 mls @ 100 mls/hr 02/25/25 17:00 02/26/25 05:32 Chloride IVPB 100 mls/hr Q12H VIN Administration Doxycycline Hyclate 100 mg/ 100 mls @ 100 mls/hr 02/25/25 10:30 02/25/25 21:01 Sodium Chloride IVPB 03/01/25 21:59 100 mls/hr Q12HR VIN Administration Levothyroxine Sodium 150 mcg 02/26/25 06:30 02/26/25 05:33 Levothyroxine Sodium 150 Mcg Tablet PO 150 mcg DAILY@0630 VIN Administration Lidocaine 1 patch 02/26/25 09:00 Lidocaine 5% Patch TRANSDERM DAILY VIN Loratadine 10 mg 02/25/25 15:24 Loratadine 10 Mg Tablet PO DAILY PRN allergy symptoms Methylprednisolone Sodium Succinate 40 mg 02/25/25 21:00 02/25/25 21:03 Methylprednisolone Sod Succ 40 Mg Vial IV PUSH 40 mg Q12HR VIN Administration Miscellaneous Information 1 each 02/26/25 00:01 02/26/25 01:33 Naloxone Nasal S [place] Is Nonform; Ok To Hold This Until Pt Discharged? XX 03/28/25 00:00 Not Given CLARIFY VIN Miscellaneous Information 1 each 02/25/25 15:48 Central Supply Item XX 02/26/25 15:47 PRN PRN Informational Miscellaneous Information 1 each 02/26/25 00:01 02/26/25 01:33 Gemtesa Is Nonform; Can Pt Use From Home? XX 03/28/25 00:00 Not Given CLARIFY VIN Montelukast Sodium 10 mg 02/26/25 09:00 Montelukast Sodium 10 Mg Tablet PO DAILY VIN Nebivolol 10 mg 02/26/25 09:00 Nebivolol Hcl 5 Mg Tablet PO DAILY VIN Non-Formulary Medication 4 mg 02/25/25 15:24 Naloxone NASAL Q2-3M PRN opioid overdose Non-Formulary Medication 75 mg 02/26/25 09:00 Vibegron [Gemtesa] PO 03/28/25 08:59 DAILY VIN Ondansetron HCl 4 mg 02/25/25 02:42 Ondansetron Inj 4 Mg/2 Ml Vial IV PUSH Q4H PRN Nausea Pantoprazole Sodium 40 mg 02/25/25 21:00 02/25/25 21:02 Pantoprazole 40 Mg Tablet PO 40 mg Q12HR VIN Administration Pravastatin Sodium 40 mg 02/26/25 09:00 Pravastatin Sodium 20 Mg Tablet PO DAILY VIN Spironolactone 25 mg 02/26/25 09:00 Spironolactone 25 Mg Tablet PO DAILY [facility] Telmisartan 40 mg 02/25/25 21:00 02/25/25 21:03 Telmisartan 40 Mg Tablet PO 40 mg Q12HR VIN Administration Vitamin D 50 mcg 02/26/25 09:00 Cholecalciferol (Vitamin D3) 25 Mcg (1,000 Units) Tablet PO DAILY [facility] Radiology Results: ITS Impressions Chest X-Ray 02/25/25 11:03 IMPRESSION: 1. Persistent interstitial and mild airspace opacities in both lungs, left greater than right, which is most likely related to chronic initial lung disease with differential including recurrent mild pulmonary edema or pneumonia. Labs Labs: Laboratory Results - last 24 hr 02/25/25 02/25/25 02/25/25 08:48 15:37 20:37 WBC 8.9 RBC 2.41 L Hgb 7.4 L Hct 22.2 L MCV 92.1 MCH 30.7 MCHC 33.3 RDW 14.6 H Plt Count 140 L MPV 11.5 H Immature Gran % (Auto) 1.9 H Neut % (Auto) 89.7 H Lymph % (Auto) 3.6 L [place] % (Auto) 4.5 Eos % (Auto) 0.2 Baso % (Auto) 0.1 L Lymph # (Auto) 0.32 L [place] # (Auto) 0.4 Eos # (Auto) 0.0 Baso # (Auto) 0.0 Abs Immat Gran (auto) 0.17 H Absolute Neuts (auto) 7.9 H Absolute Nucleated RBC 0.000 Band Neutrophils % Not Reportable Nucleated RBC % 0.0 Platelet Estimate Adequate % Immature Plt Fraction 9.4 Anisocytosis 1+ Ovalocytes Occasional Schistocytes Rare Sodium 121 L 122 L 123 L Potassium 4.6 4.2 4.1 Chloride 90 L 91 L 92 L Carbon Dioxide 19 L 21 L 23 Anion Gap 12 10 8 BUN 17 19 H 18 H Creatinine 0.95 0.92 0.88 Estim Creat Clear Calc 47 49 51 Estimated GFR 56 L 59 > 60 Glucose 142 H 148 H 154 H Serum Osmolality Cancelled Calcium 9.0 8.9 9.4 Total Bilirubin 1.0 AST 41 H ALT 27 Alkaline Phosphatase 79 Total Protein 6.7 Albumin 4.0 TSH (Reflex) 1.610 Random Cortisol 4.72 Ur Random Sodium 02/25/25 02/26/25 21:29 04:01 WBC RBC Hgb Hct MCV MCH MCHC RDW Plt Count MPV Immature Gran % (Auto) Neut % (Auto) Lymph % (Auto) [place] % (Auto) Eos % (Auto) Baso % (Auto) Lymph # (Auto) [place] # (Auto) Eos # (Auto) Baso # (Auto) Abs Immat Gran (auto) Absolute Neuts (auto) Absolute Nucleated RBC Band Neutrophils % Nucleated RBC % Platelet Estimate % Immature Plt Fraction Anisocytosis Ovalocytes Schistocytes Sodium 125 L Potassium 4.8 Chloride 95 L Carbon Dioxide 21 L Anion Gap 9 BUN 16 Creatinine 0.74 Estim Creat Clear Calc 60 Estimated GFR > 60 Glucose 138 H Serum Osmolality Calcium 9.1 Total Bilirubin AST ALT Alkaline Phosphatase Total Protein Albumin TSH (Reflex) Random Cortisol Ur Random Sodium 22
[2025-02-26 08:25] LABS: Anisocytosis 1+; Basophilic Stippling Occasional; Polychromasia Occasional
[2025-02-26 08:26] LABS: Burr Cells 1+; Schistocytes None Seen
[2025-02-26] MEDS: FLUTICASONE/UMECLIDIN/VILANTER 200-62.5-25 MCG ELLIPTA 1 PUFF INHALATION (09:08)
[2025-02-26] MEDS: MONTELUKAST SODIUM 10 MG TABLET PO (09:37)
[2025-02-26] MEDS: NEBIVOLOL HCL 5 MG TABLET 10 MG PO (09:37)
[2025-02-26] MEDS: guaiFENesin 12 HR 600 MG TABCR 1200 MG PO ×2 (09:38→20:22)
[2025-02-26] MEDS: APIXABAN 5 MG TABLET PO ×2 (09:38→20:21)
[2025-02-26] MEDS: PRAVASTATIN SODIUM 20 MG TABLET 40 MG PO (09:38)
[2025-02-26] MEDS: CHOLECALCIFEROL (VITAMIN D3) 25 MCG (1,000 UNITS) TABLET 50 MCG PO (09:39)
[2025-02-26] MEDS: TELMISARTAN 40 MG TABLET PO ×2 (09:39→20:24)
[2025-02-26] MEDS: SPIRONOLACTONE 25 MG TABLET PO (09:39)
[2025-02-26] MEDS: ASPIRIN 81 MG ENTERIC TABLET PO (09:39)
[2025-02-26] MEDS: PANTOPRAZOLE 40 MG TABLET PO ×2 (09:40→20:23)
[2025-02-26] MEDS: OMEGA 3 POLYUNSAT FATTY ACIDS 1 GM CAP PO (09:40)
[2025-02-26] MEDS: FOLIC ACID 1 MG TABLET PO (09:40)
[2025-02-26] MEDS: LIDOCAINE 5% PATCH 1 PATCH TRANSDERM (09:41)
[2025-02-26] MEDS: DOXYCYCLINE IV 100 MG in SODIUM CHLORIDE 0.9% IV 100 ML IVPB ×2 (09:42→20:22)
--- NOTE | 2025-02-26 09:47 | PM.PNCARD ---
Progress Note: A&P Assessment and Plan (1) Congestive heart failure: Code(s): I50.9 - Heart failure, unspecified Status: Acute (2) Atrial fibrillation: Code(s): I48.91 - Unspecified atrial fibrillation Status: Acute Plan 79 yo old woman with paroxysmal atrial fibrillation Eliquis, chronic diastolic heart failure, chronic hypoxic respiratory failure on home oxygen 2 L, and interstitial lung disease initially presented with shortness of breath Chronic diastolic heart failure -Lasix 20 mg p.o. daily -continue to monitor sodium level while on standing low-dose oral diuretics which she will need on discharge -if sodium level decreases with diuretics, should be on salt tablet with each Lasix dose as outlined in Nephrology recommendations Paroxysmal atrial fibrillation -continue nebivolol and Eliquis Hyperlipidemia -continue pravastatin Cardiology will sign off. Please call with additional questions. Subjective Date/time seen: 02/26/25 09:47 Interval history: States that she feels well with no shortness of breath or chest discomfort while using an inhaled nebulizer this morning. Denies orthopnea. Has some lower extremity swelling. Review of Systems Cardiovascular: Cardiovascular: Reports as per HPI Respiratory: Respiratory: Reports as per HPI Exam Const: General: comfortable HENMT: Mouth: Yes moist mucous membranes Eyes: EOM: EOMs intact bilaterally Neck: Neck: no JVD Resp: Effort & Inspection: normal respiratory effort Cardio: Rate: regular rate Rhythm: regular rhythm Heart sounds: Murmur heart sound present Extrem: General: edema and pedal edema Objective Data Vital Signs Vital Signs: Vital Signs - 24 hr 02/25/25 10:00 02/25/25 12:00 02/25/25 12:00 Temperature 36.3 C L Pulse Rate 75 74 76 Respiratory Rate 24 H Blood Pressure 136/58 L Pulse Oximetry 97 Oxygen Delivery Oxygen Flow Rate 02/25/25 14:00 02/25/25 14:05 02/25/25 14:05 Temperature Pulse Rate 78 72 72 Respiratory Rate 20 20 Blood Pressure Pulse Oximetry 98 Oxygen Delivery Nasal Cannula Oxygen Flow Rate 2 02/25/25 14:09 02/25/25 16:00 02/25/25 16:00 Temperature 36.8 C Pulse Rate 76 75 77 Respiratory Rate 20 20 Blood Pressure 113/75 Pulse Oximetry 97 Oxygen Delivery Oxygen Flow Rate 02/25/25 18:00 02/25/25 19:41 02/25/25 19:43 Temperature 36.4 C 36.4 C Pulse Rate 74 85 85 Respiratory Rate 24 H 24 H Blood Pressure 124/59 L 124/59 L Pulse Oximetry 96 96 Oxygen Delivery Oxygen Flow Rate 02/25/25 20:00 02/25/25 20:00 02/25/25 20:05 Temperature Pulse Rate 73 74 Respiratory Rate 20 Blood Pressure Pulse Oximetry 99 Oxygen Delivery Nasal Cannula Oxygen Flow Rate 3 02/25/25 20:10 02/25/25 20:15 02/25/25 22:00 Temperature Pulse Rate 76 74 77 Respiratory Rate 20 20 Blood Pressure Pulse Oximetry 97 Oxygen Delivery Nasal Cannula Oxygen Flow Rate 2 02/25/25 22:30 02/26/25 00:00 02/26/25 00:00 Temperature 36.6 C Pulse Rate 84 77 Respiratory Rate 20 Blood Pressure 103/85 Pulse Oximetry 97 91 93 Oxygen Delivery CPAP CPAP Oxygen Flow Rate 5 02/26/25 00:00 02/26/25 02:00 02/26/25 02:16 Temperature Pulse Rate 75 68 76 Respiratory Rate 18 Blood Pressure Pulse Oximetry Oxygen Delivery Oxygen Flow Rate 02/26/25 02:19 02/26/25 02:21 02/26/25 04:00 Temperature Pulse Rate 84 75 Respiratory Rate 18 Blood Pressure Pulse Oximetry 97 93 Oxygen Delivery CPAP CPAP Oxygen Flow Rate 5 02/26/25 04:00 02/26/25 04:00 02/26/25 06:00 Temperature 36.9 C Pulse Rate 78 76 78 Respiratory Rate 20 Blood Pressure 113/51 L Pulse Oximetry 92 Oxygen Delivery Oxygen Flow Rate 02/26/25 07:25 02/26/25 09:11 02/26/25 09:11 Temperature 36.6 C Pulse Rate 78 72 Respiratory Rate 22 H 18 Blood Pressure 105/56 L Pulse Oximetry 94 96 Oxygen Delivery Nasal Cannula Oxygen Flow Rate 2 02/26/25 09:18 02/26/25 09:37 Temperature Pulse Rate 76 83 Respiratory Rate 18 Blood Pressure Pulse Oximetry Oxygen Delivery Oxygen Flow Rate Intake/Output Intake/Output: Intake & Output 02/23/25 02/24/25 02/25/25 02/26/25 23:59 23:59 23:59 23:59 Intake Total 1220 370 Output Total 1350 400 Balance -130 -30 Meds/Results Medications: Active Medications Generic Name Dose Route Start Last Admin Trade Name [place] PRN Reason Stop Dose Admin Acetaminophen 650 mg 02/25/25 02:42 Acetaminophen 325 Mg Tablet PO Q4H PRN Mild Pain (1-3) or Fever Albuterol 2.5 mg 02/25/25 15:24 Albuterol Sulfate Neb 2.5 Mg/3 Ml Inh INHALATION Q6HRT PRN Shortness Of Breath Or Wheezing Albuterol/Ipratropium 3 ml 02/25/25 08:00 02/26/25 09:08 Ipratropium 0.5 Mg/Albuterol Sulfate 2.5 Mg (Base) Ampul.Neb 3 Ml INHALATION 3 ml Q6HRT VIN Administration Amlodipine Besylate 10 mg 02/26/25 09:00 02/26/25 09:38 Amlodipine Besylate 10 Mg Tablet PO 10 mg DAILY VIN Administration Apixaban 5 mg 02/25/25 21:00 02/26/25 09:38 Apixaban 5 Mg Tablet PO 5 mg Q12HR VIN Administration Aspirin 81 mg 02/26/25 09:00 02/26/25 09:39 Aspirin 81 Mg Enteric Tablet PO 81 mg QAM VIN Administration Benzonatate 200 mg 02/25/25 15:42 Benzonatate 100 Mg Capsule PO TID PRN cough Diclofenac Sodium 0 applic 02/25/25 15:24 Diclofenac Sodium 1% 100 Gm Gel (*Bkc) TOPICAL QID PRN JOINT PAIN Docusate Sodium 100 mg 02/25/25 21:00 02/26/25 09:40 Docusate Sodium 100 Mg Capsule PO Not Given Q12HR [facility] Donepezil HCl 5 mg 02/25/25 21:00 02/25/25 21:03 Donepezil Hcl 5 Mg Tablet PO 5 mg QHS [facility] Administration Fish Oil 1 gm 02/26/25 09:00 02/26/25 09:40 [place] 3 Polyunsat Fatty Acids 1 Gm Cap PO 1 gm DAILY VIN Administration Fluoxetine HCl 20 mg 02/25/25 22:00 02/26/25 05:32 Fluoxetine Hcl 20 Mg Capsule PO 20 mg Q8HR VIN Administration Fluticasone/Umeclidinium/Vilanterol 1 puff 02/26/25 08:00 02/26/25 09:08 Fluticasone/Umeclidin/Vilanter 200-62.5-25 Mcg Ellipta INHALATION 1 puff DAILYRT VIN Administration Folic Acid 1 mg 02/26/25 09:00 02/26/25 09:40 Folic Acid 1 Mg Tablet PO 1 mg DAILY VIN Administration Gabapentin 300 mg 02/25/25 15:35 02/26/25 05:32 Gabapentin 300 Mg Capsule PO 300 mg Q8HR VIN Administration Guaifenesin 1,200 mg 02/25/25 21:00 02/26/25 09:38 Guaifenesin 12 Hr 600 Mg Tabcr PO 1,200 mg Q12HR VIN Administration Cefepime HCl 2 gm/ Sodium 50 mls @ 100 mls/hr 02/25/25 17:00 02/26/25 05:32 Chloride IVPB 100 mls/hr Q12H VIN Administration Doxycycline Hyclate 100 mg/ 100 mls @ 100 mls/hr 02/25/25 10:30 02/26/25 09:42 Sodium Chloride IVPB 03/01/25 21:59 100 mls/hr Q12HR VIN Administration Levothyroxine Sodium 150 mcg 02/26/25 06:30 02/26/25 05:33 Levothyroxine Sodium 150 Mcg Tablet PO 150 mcg DAILY@0630 VIN Administration Lidocaine 1 patch 02/26/25 09:00 02/26/25 09:41 Lidocaine 5% Patch TRANSDERM 1 patch DAILY VIN Administration Loratadine 10 mg 02/25/25 15:24 Loratadine 10 Mg Tablet PO DAILY PRN allergy symptoms Methylprednisolone Sodium Succinate 40 mg 02/25/25 21:00 02/26/25 09:40 Methylprednisolone Sod Succ 40 Mg Vial IV PUSH 40 mg Q12HR VIN Administration Miscellaneous Information 1 each 02/26/25 00:01 02/26/25 01:33 Naloxone Nasal [place] Is Nonform; Ok To Hold This Until Pt Discharged? XX 03/28/25 00:00 Not Given CLARIFY VIN Miscellaneous Information 1 each 02/25/25 15:48 Central Supply Item XX 02/26/25 15:47 PRN PRN Informational Miscellaneous Information 1 each 02/26/25 00:01 02/26/25 01:33 Gemtesa Is Nonform; Can Pt Use From Home? XX 03/28/25 00:00 Not Given CLARIFY VIN Montelukast Sodium 10 mg 02/26/25 09:00 02/26/25 09:37 Montelukast Sodium 10 Mg Tablet PO 10 mg DAILY VIN Administration Nebivolol 10 mg 02/26/25 09:00 02/26/25 09:37 Nebivolol Hcl 5 Mg Tablet PO 10 mg DAILY VIN Administration Non-Formulary Medication 4 mg 02/25/25 15:24 Naloxone NASAL Q2-3M PRN opioid overdose Non-Formulary Medication 75 mg 02/26/25 09:00 Vibegron [Gemtesa] PO 03/28/25 08:59 DAILY VIN Ondansetron HCl 4 mg 02/25/25 02:42 Ondansetron Inj 4 Mg/2 Ml Vial IV PUSH Q4H PRN Nausea Pantoprazole Sodium 40 mg 02/25/25 21:00 02/26/25 09:40 Pantoprazole 40 Mg Tablet PO 40 mg Q12HR VIN Administration Pravastatin Sodium 40 mg 02/26/25 09:00 02/26/25 09:38 Pravastatin Sodium 20 Mg Tablet PO 40 mg DAILY VIN Administration Spironolactone 25 mg 02/26/25 09:00 02/26/25 09:39 Spironolactone 25 Mg Tablet PO 25 mg DAILY VIN Administration Telmisartan 40 mg 02/25/25 21:00 02/26/25 09:39 Telmisartan 40 Mg Tablet PO 40 mg Q12HR VIN Administration Vitamin D 50 mcg 02/26/25 09:00 02/26/25 09:39 Cholecalciferol (Vitamin D3) 25 Mcg (1,000 Units) Tablet PO 50 mcg DAILY VIN Administration Radiology Results: ITS Impressions Chest X-Ray 02/25/25 11:03 IMPRESSION: 1. Persistent interstitial and mild airspace opacities in both lungs, left greater than right, which is most likely related to chronic initial lung disease with differential including recurrent mild pulmonary edema or pneumonia. Labs Labs: Laboratory Results - last 24 hr 02/25/25 02/25/25 02/25/25 15:37 20:37 21:29 WBC 8.9 RBC 2.41 L Hgb 7.4 L Hct 22.2 L MCV 92.1 MCH 30.7 MCHC 33.3 RDW 14.6 H Plt Count 140 L MPV 11.5 H Immature Gran % (Auto) 1.9 H Neut % (Auto) 89.7 H Lymph % (Auto) 3.6 L [place] % (Auto) 4.5 Eos % (Auto) 0.2 Baso % (Auto) 0.1 L Lymph # (Auto) 0.32 L [place] # (Auto) 0.4 Eos # (Auto) 0.0 Baso # (Auto) 0.0 Abs Immat Gran (auto) 0.17 H Absolute Neuts (auto) 7.9 H Absolute Nucleated RBC 0.000 Band Neutrophils % Not Reportable Nucleated RBC % 0.0 Platelet Estimate Adequate % Immature Plt Fraction 9.4 Polychromasia Basophilic Stippling Anisocytosis 1+ Ovalocytes Occasional [place] Cells Schistocytes Rare Sodium 122 L 123 L Potassium 4.2 4.1 Chloride 91 L 92 L Carbon Dioxide 21 L 23 Anion Gap 10 8 BUN 19 H 18 H Creatinine 0.92 0.88 Estim Creat Clear Calc 49 51 Estimated GFR 59 > 60 Glucose 148 H 154 H Serum Osmolality Cancelled Calcium 8.9 9.4 Total Bilirubin 1.0 AST 41 H ALT 27 Alkaline Phosphatase 79 Total Protein 6.7 Albumin 4.0 TSH (Reflex) 1.610 Random Cortisol 4.72 Ur Random Sodium 22 02/26/25 04:01 WBC 8.2 RBC 2.24 L Hgb 7.3 L Hct 21.7 L MCV 96.9 D MCH 32.6 D MCHC 33.6 RDW 14.9 H Plt Count 122 L MPV 12.3 H Immature Gran % (Auto) 1.3 H Neut % (Auto) 90.9 H Lymph % (Auto) 2.6 L [place] % (Auto) 4.8 Eos % (Auto) 0.4 Baso % (Auto) 0.0 L Lymph # (Auto) 0.21 L [place] # (Auto) 0.4 Eos # (Auto) 0.0 Baso # (Auto) 0.0 Abs Immat Gran (auto) 0.11 H Absolute Neuts (auto) 7.4 H Absolute Nucleated RBC 0.000 Band Neutrophils % Not Reportable Nucleated RBC % 0.0 Platelet Estimate Slightly decreased % Immature Plt Fraction 9.4 Polychromasia Occasional Basophilic Stippling Occasional Anisocytosis 1+ Ovalocytes [place] Cells 1+ Schistocytes None seen Sodium 125 L Potassium 4.8 Chloride 95 L Carbon Dioxide 21 L Anion Gap 9 BUN 16 Creatinine 0.74 Estim Creat Clear Calc 60 Estimated GFR > 60 Glucose 138 H Serum Osmolality Calcium 9.1 Total Bilirubin AST ALT Alkaline Phosphatase Total Protein Albumin TSH (Reflex) Random Cortisol Ur Random Sodium
[2025-02-26] MEDS: FUROSEMIDE 20 MG TABLET PO (12:00)
[2025-02-26 16:29] LABS: Hematocrit 23.6 % (37.0-47.0); Hemoglobin 7.9 g/dL (12.0-15.0); Immature Granulocyte Percent A 2.4 % (0-0.5); Lymphocytes Absolute Auto 0.26 K/mm3 (0.9-3.2); Mean Corpuscular HGB Conc 33.5 g/dl (32-36); Mean Corpuscular Hemoglobin 31.0 pg (26-34); Mean Corpuscular Volume 92.5 fl (80-100); Nucleated Red Blood Cells Absolute Auto 0.000 K/mm3 (0.0-0.012); Nucleated Red Blood Cells Perc 0.0 % (0.0-0.2); Platelet Count Result 154 k/mm3 (150-375); Red Blood Count 2.55 M/mm3 (4.2-5.4); White Blood Count 14.7 K/mm3 (4.5-10.0)
[2025-02-26 16:40] LABS: Alanine Aminotransferase 32 U/L (6-35); Albumin Level 4.3 g/dL (3.5-5.1); Alkaline Phosphatase 90 U/L (38-126); Anion Gap 9 mmol/L (4-12); Aspartate Amino Transferase 37 U/L (14-36); Bilirubin,Total 1.0 mg/dL (0.2-1.3); Blood Urea Nitrogen 15 mg/dL (7-17); Calcium 9.8 mg/dL (8.4-10.2); Carbon Dioxide 22 mmol/L (22-30); Chloride 96 mmol/L (98-107); Estimated CRCL calculation 46 ml/min; Estimated Glomerular Filt Rate 54; Glucose 148 mg/dL (65-110); Potassium 4.5 mmol/L (3.4-5.0); Sodium 127 mmol/L (137-145); Total Protein 7.2 g/dL (6.3-8.2)
[2025-02-26 16:57] LABS: Anisocytosis 1+; Burr Cells 1+; Ovalocytes 1+; Schistocytes None Seen
[2025-02-26] MEDS: DOCUSATE SODIUM 100 MG CAPSULE PO (20:21)
[2025-02-26] MEDS: DONEPEZIL HCL 5 MG TABLET PO (20:22)
[2025-02-26] MEDS: LORazepam (*CRX) 1 MG TABLET 2 MG PO (23:39)
[2025-02-27] VITALS (25 sets, daily range): BP systolic 119–144; BP diastolic 44–78; PULSE 58–79; RESP 20–24; TEMP 36.3–36.9; O2SAT 90–100
[2025-02-27] MEDS: CEFEPIME 2 GM in SODIUM CHLORIDE 0.9% IV 50 ML 100 ML IVPB ×2 (05:44→16:52)
[2025-02-27] MEDS: LEVOTHYROXINE SODIUM 150 MCG TABLET PO (05:45)
[2025-02-27] MEDS: GABAPENTIN 300 MG CAPSULE PO ×3 (05:45→21:23)
--- NOTE | 2025-02-27 07:40 | P.PNIM_ITS ---
Assessment and Plan Assessment and Plan (1) Acute and chronic respiratory failure: Qualifiers: Respiratory failure complication: hypoxia Qualified Code(s): J96.21 - Acute and chronic respiratory failure with hypoxia Code(s): J96.20 - Acute and chronic respiratory failure, unspecified whether with hypoxia or hypercapnia Status: Acute Assessment and Plan: At baseline requires 2 L nasal cannula at all times, remains at 2 L nasal cannula with appropriate O2 saturations. Placed on BiPAP in ER for increased work of breathing. * ABG: PH 7.557, pCO2 23.8, PO2 91.3, HC03 20.7, O2 content 11.6, O2 saturation 98% -no hypoxemia * Likely multifactorial, CHF exacerbation, HAP, asthma excerbation? * Will continue 40 mg Lasix daily * Antibiotic therapy for pneumonia * Does not require BiPAP at this time * Maintain baseline O2 supplementation * Duonebz q6H and Albuterol q2H prn * Solu-Medrol 40 mg IVq12H * At baseline O2 requirement - 92% on 2L NC * Pulmonary consult (2) Pneumonia: Code(s): J18.9 - Pneumonia, unspecified organism Status: Acute Assessment and Plan: * CXR: Persistent interstitial and mild airspace opacities in both lungs, left greater than right, which is most likely related to chronic initial lung disease with differential including recurrent mild pulmonary edema or pneumonia * Risk Factors: Recent hospitalization 1-1/2 weeks prior to this admission * started on HAP tx: Cefepime * Viral PCR: negative for Flu/COVID/RSV * Consider ordering legionella, mycoplasma and pneumococcal * no supplemental O2 requirement * supportive treatment * trend labs * Monitor vital signs, I&Os, neuro status and patient is a fall risk * Follow WBC, serum electrolytes, temperature curves and cultures * Send sputum cultures * Continue IV abx (3) Acute hyponatremia: Code(s): E87.1 - Hypo-osmolality and hyponatremia Status: Acute Assessment and Plan: * Upon admission: Na 117 * Longstanding history of hyponatremia with sodium levels in the high 120s/low 130s since 2021 * Multifactorial, fluoxetine may be contributory, pantoprazole * Serum osmolality, urine osmolality, cortisol, TSH, SPEP * Nephrology consulted * Fluid restriction * Ensure no rapid over-correction * Asymptomatic, hold on 3% saline * 02/27: Na 127 (4) Acute exacerbation of CHF (congestive heart failure): Qualifiers: Heart failure type: diastolic Qualified Code(s): I50.33 - Acute on chronic diastolic (congestive) heart failure Code(s): I50.9 - Heart failure, unspecified Status: Acute Assessment and Plan: * Symptoms: Shortness of breath, lower extremity swelling * Current medications: Continue IV furosemide * BNP: 7930 * EKG: Atrial flutter/tachycardia * Chest XR: Persistent interstitial and mild airspace opacities in both lungs, left greater than right, which is most likely related to chronic initial lung disease with differential including recurrent mild pulmonary edema or pneumonia. * Echo: 02/13/25: EF 55-60%, severe enlargement left atrial chamber, moderate enlargement right atrial chamber, mild pulmonary hypertension, trace AVR/TVR, mild MVR * Monitor vital signs, I&Os, BUN/creatinine, daily weights, neuro status and patient is a fall risk * Monitor serum electrolytes, Keep serum Potassium>4 and serum Magnesium>2 and CBC (5) Atrial fibrillation: Code(s): I48.91 - Unspecified atrial fibrillation Status: Acute Assessment and Plan: * Keep serum potassium >4 and keep magnesium >2 * Consult Cardiology for further management, appreciate assistance and recommendations * Lovenox initiated * Continue Eliquis * Heart rate well-controlled (6) Hypothyroidism: Qualifiers: Hypothyroidism type: acquired Qualified Code(s): E03.9 - Hypothyroidism, unspecified Code(s): E03.9 - Hypothyroidism, unspecified Status: Chronic Assessment and Plan: * Continue Synthroid * Repeat TSH (7) NBA on CPAP: Code(s): G47.33 - Obstructive sleep apnea (adult) (pediatric); Z99.89 - Dependence on other enabling machines and devices Status: Chronic Assessment and Plan: * Continue at-home CPAP (8) Hypertension: Qualifiers: Hypertension type: primary hypertension Qualified Code(s): I10 - Essential (primary) hypertension Code(s): I10 - Essential (primary) hypertension Status: Chronic Assessment and Plan: * Patient's blood pressure was reviewed on 02/25 * Blood pressure remains well controlled * Will continue current medications (9) Depression, major, recurrent, mild: Code(s): F33.0 - Major depressive disorder, recurrent, mild Status: Acute Assessment and Plan: * Continue fluoxetine Subjective Date/time seen: 02/27/25 07:40 Interval history: Marialuisa Darden is an 79-year-old female with a past medical history dementia, chronic respiratory failure, diastolic dysfunction, anemia, COPD, HTN, fibromyalgia among other chronic medical conditions presents here with shortness of breath and cough. 02/27/2025 Patient is sitting comfortably at the bedside during examination. States that she feels slightly worse today than she did yesterday. Sodium is increased to 127, continue to follow along with Nephrology steadily. WBC elevated, likely secondary to initiation of methylprednisone. Given extensive pulmonary history and worsening of symptoms today, will reconsult pulmonology for further recommendations. She remains on 2 L nasal cannula and a 2%, however cough is much more persistent today. Review of Systems Review of Systems: All systems reviewed & are unremarkable except as noted in HPI and below Exam Narrative: Gen -chronically ill appearing female in no acute respiratory distress who is nontoxic-appearing lying semi recumbent in bed HEENT - normocephalic. ?Atraumatic. ?Pupils equal round and reactive. ?Extraocular motions intact. ?Sclera clear and anicteric. ?Nares patent. ?Oropharynx was clear. ?No oral lesions. ?Moist mucous membranes. ?Tongue was midline. ?Palate marjorie symmetrically. ?No facial asymmetry. Neck - neck was supple. ?No dominant adenopathy, thyromegaly or masses. ? Chest - lungs are clear to auscultation bilaterally. ?No wheezes or crackles. CV -abnormal rhythm, irregularly irregular,, normal rate, S1-S2. No murmurs gallops or rubs. Abd - abdomen was soft. ?Nontender. ?Nondistended. ?Positive bowel sounds. ?No organomegaly or masses. Ext -minimal trace lower extremity edema no clubbing, cyanosis. ?2+ DP pulses bilaterally. Neuro - patient is alert and oriented x2. ?Strength is 5/5 in both upper and lower extremities. ?Cranial nerves 2-12 are intact. ?Speech is clear. Psych - normal mood and affect. ?Patient is pleasant and cooperative. Skin - warm and dry. ?No rashes noted. Objective Data Vital Signs Vital Signs: Vital Signs - 24 hr 02/26/25 08:00 02/26/25 09:11 02/26/25 09:11 Temperature Pulse Rate 68 72 Respiratory Rate 18 Blood Pressure Pulse Oximetry 96 Oxygen Delivery Nasal Cannula Oxygen Flow Rate 2 Fraction of Inspired Oxygen 02/26/25 09:18 02/26/25 09:30 02/26/25 09:37 Temperature Pulse Rate 76 75 83 Respiratory Rate 18 Blood Pressure Pulse Oximetry Oxygen Delivery Oxygen Flow Rate Fraction of Inspired Oxygen 02/26/25 09:46 02/26/25 10:13 02/26/25 11:29 Temperature 98.1 F Pulse Rate 72 70 Respiratory Rate 20 Blood Pressure 123/47 L 113/49 L Pulse Oximetry 96 Oxygen Delivery Nasal Cannula Oxygen Flow Rate 4 Fraction of Inspired Oxygen 02/26/25 12:00 02/26/25 14:00 02/26/25 14:11 Temperature Pulse Rate 73 73 Respiratory Rate Blood Pressure Pulse Oximetry Oxygen Delivery Nasal Cannula Oxygen Flow Rate 5 Fraction of Inspired Oxygen 02/26/25 14:31 02/26/25 14:40 02/26/25 15:15 Temperature 97.8 F Pulse Rate 71 74 73 Respiratory Rate 18 18 20 Blood Pressure 123/55 L Pulse Oximetry 92 Oxygen Delivery Oxygen Flow Rate Fraction of Inspired Oxygen 02/26/25 16:00 02/26/25 18:00 02/26/25 20:00 Temperature 98.5 F Pulse Rate 67 67 75 Respiratory Rate 18 Blood Pressure 114/51 L Pulse Oximetry 90 Oxygen Delivery Oxygen Flow Rate Fraction of Inspired Oxygen 02/26/25 20:00 02/26/25 20:00 02/26/25 21:20 Temperature Pulse Rate 69 76 Respiratory Rate 20 Blood Pressure Pulse Oximetry 92 92 Oxygen Delivery Nasal Cannula Nasal Cannula Oxygen Flow Rate 5 5 Fraction of Inspired Oxygen 02/26/25 21:20 02/26/25 21:26 02/27/25 00:00 Temperature 98.5 F Pulse Rate 74 73 69 Respiratory Rate 20 Blood Pressure 123/70 Pulse Oximetry 92 Oxygen Delivery Oxygen Flow Rate Fraction of Inspired Oxygen 02/27/25 00:00 02/27/25 00:00 02/27/25 01:36 Temperature Pulse Rate 79 67 Respiratory Rate Blood Pressure Pulse Oximetry 90 94 Oxygen Delivery CPAP CPAP Oxygen Flow Rate 5 Fraction of Inspired Oxygen 02/27/25 02:00 02/27/25 04:00 02/27/25 04:00 Temperature Pulse Rate 69 66 Respiratory Rate 20 Blood Pressure Pulse Oximetry 96 Oxygen Delivery CPAP Oxygen Flow Rate 5 Fraction of Inspired Oxygen 02/27/25 04:00 02/27/25 06:00 Temperature 97.3 F L Pulse Rate 60 70 Respiratory Rate 20 Blood Pressure 128/69 Pulse Oximetry 94 Oxygen Delivery Oxygen Flow Rate Fraction of Inspired Oxygen Intake/Output Intake/Output: Intake & Output 02/24/25 02/25/25 02/26/25 02/27/25 23:59 23:59 23:59 23:59 Intake Total 1220 1100 350 Output Total 1350 800 550 Balance -130 300 -200 Meds/Results Medications: Active Medications Generic Name Dose Route Start Last Admin Trade Name Freq PRN Reason Stop Dose Admin Acetaminophen 650 mg 02/25/25 02:42 Acetaminophen 325 Mg Tablet PO Q4H PRN Mild Pain (1-3) or Fever Albuterol 2.5 mg 02/25/25 15:24 Albuterol Sulfate Neb 2.5 Mg/3 Ml Inh INHALATION Q6HRT PRN Shortness Of Breath Or Wheezing Albuterol/Ipratropium 3 ml 02/25/25 08:00 02/27/25 01:31 Ipratropium 0.5 Mg/Albuterol Sulfate 2.5 Mg (Base) Ampul.Neb 3 Ml INHALATION Not Given Q6HRT [facility] Amlodipine Besylate 10 mg 02/26/25 09:00 02/26/25 09:38 Amlodipine Besylate 10 Mg Tablet PO 10 mg DAILY VIN Administration Apixaban 5 mg 02/25/25 21:00 02/26/25 20:21 Apixaban 5 Mg Tablet PO 5 mg Q12HR VIN Administration Aspirin 81 mg 02/26/25 09:00 02/26/25 09:39 Aspirin 81 Mg Enteric Tablet PO 81 mg QAM VIN Administration Benzonatate 200 mg 02/25/25 15:42 Benzonatate 100 Mg Capsule PO TID PRN cough Diclofenac Sodium 0 applic 02/25/25 15:24 Diclofenac Sodium 1% 100 Gm Gel (*Bkc) TOPICAL QID PRN JOINT PAIN Docusate Sodium 100 mg 02/25/25 21:00 02/26/25 20:21 Docusate Sodium 100 Mg Capsule PO 100 mg Q12HR VIN Administration Donepezil HCl 5 mg 02/25/25 21:00 02/26/25 20:22 Donepezil Hcl 5 Mg Tablet PO 5 mg QHS VIN Administration Fish Oil 1 gm 02/26/25 09:00 02/26/25 09:40 [place] 3 Polyunsat Fatty Acids 1 Gm Cap PO 1 gm DAILY VIN Administration Fluoxetine HCl 20 mg 02/25/25 22:00 02/27/25 05:45 Fluoxetine Hcl 20 Mg Capsule PO 20 mg Q8HR VIN Administration Fluticasone/Umeclidinium/Vilanterol 1 puff 02/26/25 08:00 02/26/25 09:08 Fluticasone/Umeclidin/Vilanter 200-62.5-25 Mcg Ellipta INHALATION 1 puff DAILYRT VIN Administration Folic Acid 1 mg 02/26/25 09:00 02/26/25 09:40 Folic Acid 1 Mg Tablet PO 1 mg DAILY VIN Administration Furosemide 20 mg 02/26/25 09:00 02/26/25 12:00 Furosemide 20 Mg Tablet PO 20 mg DAILY VIN Administration Gabapentin 300 mg 02/25/25 15:35 02/27/25 05:45 Gabapentin 300 Mg Capsule PO 300 mg Q8HR VIN Administration Guaifenesin 1,200 mg 02/25/25 21:00 02/26/25 20:22 Guaifenesin 12 Hr 600 Mg Tabcr PO 1,200 mg Q12HR VIN Administration Cefepime HCl 2 gm/ Sodium 50 mls @ 100 mls/hr 02/25/25 17:00 02/27/25 06:26 Chloride IVPB Infused Q12H VIN Infusion Doxycycline Hyclate 100 mg/ 100 mls @ 100 mls/hr 02/25/25 10:30 02/26/25 21:22 Sodium Chloride IVPB 03/01/25 21:59 Infused Q12HR VIN Infusion Levothyroxine Sodium 150 mcg 02/26/25 06:30 02/27/25 05:45 Levothyroxine Sodium 150 Mcg Tablet PO 150 mcg DAILY@0630 VIN Administration Lidocaine 1 patch 02/26/25 09:00 02/26/25 09:41 Lidocaine 5% Patch TRANSDERM 1 patch DAILY VIN Administration Loratadine 10 mg 02/25/25 15:24 Loratadine 10 Mg Tablet PO DAILY PRN allergy symptoms Lorazepam 2 mg 02/26/25 23:03 02/26/25 23:39 Lorazepam (*Crx) 1 Mg Tablet PO 2 mg Q4H PRN Administration Anxiety Methylprednisolone Sodium Succinate 40 mg 02/25/25 21:00 02/26/25 20:23 Methylprednisolone Sod Succ 40 Mg Vial IV PUSH 40 mg Q12HR VIN Administration Miscellaneous Information 1 each 02/26/25 00:01 02/26/25 01:33 Naloxone Nasal [place] Is Nonform; Ok To Hold This Until Pt Discharged? XX 03/28/25 00:00 Not Given CLARIFY VIN Miscellaneous Information 1 each 02/26/25 00:01 02/26/25 01:33 Gemtesa Is Nonform; Can Pt Use From Home? XX 03/28/25 00:00 Not Given CLARIFY VIN Montelukast Sodium 10 mg 02/26/25 09:00 02/26/25 09:37 Montelukast Sodium 10 Mg Tablet PO 10 mg DAILY VIN Administration Nebivolol 10 mg 02/26/25 09:00 02/26/25 09:37 Nebivolol Hcl 5 Mg Tablet PO 10 mg DAILY VIN Administration Non-Formulary Medication 4 mg 02/25/25 15:24 Naloxone NASAL Q2-3M PRN opioid overdose Non-Formulary Medication 75 mg 02/26/25 09:00 Vibegron [Gemtesa] PO 03/28/25 08:59 DAILY VIN Ondansetron HCl 4 mg 02/25/25 02:42 Ondansetron Inj 4 Mg/2 Ml Vial IV PUSH Q4H PRN Nausea Pantoprazole Sodium 40 mg 02/25/25 21:00 02/26/25 20:23 Pantoprazole 40 Mg Tablet PO 40 mg Q12HR VNI Administration Pravastatin Sodium 40 mg 02/26/25 09:00 02/26/25 09:38 Pravastatin Sodium 20 Mg Tablet PO 40 mg DAILY VIN Administration Spironolactone 25 mg 02/26/25 09:00 02/26/25 09:39 Spironolactone 25 Mg Tablet PO 25 mg DAILY VIN Administration Telmisartan 40 mg 02/25/25 21:00 02/26/25 20:24 Telmisartan 40 Mg Tablet PO 40 mg Q12HR VIN Administration Vitamin D 50 mcg 02/26/25 09:00 02/26/25 09:39 Cholecalciferol (Vitamin D3) 25 Mcg (1,000 Units) Tablet PO 50 mcg DAILY VIN Administration Radiology Results: ITS Impressions Chest X-Ray 02/25/25 11:03 IMPRESSION: 1. Persistent interstitial and mild airspace opacities in both lungs, left greater than right, which is most likely related to chronic initial lung disease with differential including recurrent mild pulmonary edema or pneumonia. Labs Labs: Laboratory Results - last 24 hr 02/26/25 02/26/25 02/26/25 04:01 16:21 16:21 WBC 8.2 14.7 H RBC 2.24 L 2.55 L Hgb 7.3 L 7.9 L Hct 21.7 L 23.6 L MCV 96.9 D 92.5 MCH 32.6 D 31.0 MCHC 33.6 33.5 RDW 14.9 H 14.8 H Plt Count 122 L 154 MPV 12.3 H 10.8 H Immature Gran % (Auto) 1.3 H 2.4 H Neut % (Auto) 90.9 H 91.0 H Lymph % (Auto) 2.6 L 1.8 L [place] % (Auto) 4.8 4.5 Eos % (Auto) 0.4 0.2 Baso % (Auto) 0.0 L 0.1 L Lymph # (Auto) 0.21 L 0.26 L [place] # (Auto) 0.4 0.7 H Eos # (Auto) 0.0 0.0 Baso # (Auto) 0.0 0.0 Abs Immat Gran (auto) 0.11 H 0.35 H Absolute Neuts (auto) 7.4 H 13.4 H Absolute Nucleated RBC 0.000 0.000 Band Neutrophils % Not Reportable Not Reportable Nucleated RBC % 0.0 0.0 Platelet Estimate Slightly decreased Adequate % Immature Plt Fraction 9.4 Polychromasia Occasional Basophilic Stippling Occasional Anisocytosis 1+ 1+ Ovalocytes 1+ Maxwell Cells 1+ 1+ Schistocytes None seen None seen Sodium 127 L Cancelled Potassium 4.5 Chloride 96 L Carbon Dioxide 22 Anion Gap 9 BUN 15 Creatinine 0.98 Estim Creat Clear Calc 46 Estimated GFR 54 L Glucose 148 H Calcium 9.8 Total Bilirubin 1.0 AST 37 H ALT 32 Alkaline Phosphatase 90 Total Protein 7.2 Albumin 4.3 Quality VTE Prophylaxis VTE prophylaxis: pharmacologic ordered
[2025-02-27] MEDS: IPRATROPIUM 0.5 MG/ALBUTEROL SULFATE 2.5 MG (BASE) AMPUL.NEB 3 ML INHALATION ×3 (07:58→21:16)
[2025-02-27] MEDS: FLUTICASONE/UMECLIDIN/VILANTER 200-62.5-25 MCG ELLIPTA 1 PUFF INHALATION (07:58)
[2025-02-27] MEDS: NEBIVOLOL HCL 5 MG TABLET 10 MG PO (09:54)
[2025-02-27] MEDS: OMEGA 3 POLYUNSAT FATTY ACIDS 1 GM CAP PO (09:54)
[2025-02-27] MEDS: DOXYCYCLINE IV 100 MG in SODIUM CHLORIDE 0.9% IV 100 ML IVPB ×2 (09:54→21:22)
[2025-02-27] MEDS: CHOLECALCIFEROL (VITAMIN D3) 25 MCG (1,000 UNITS) TABLET 50 MCG PO (09:55)
[2025-02-27] MEDS: FUROSEMIDE 20 MG TABLET PO (09:55)
[2025-02-27] MEDS: PRAVASTATIN SODIUM 20 MG TABLET 40 MG PO (09:55)
[2025-02-27] MEDS: guaiFENesin 12 HR 600 MG TABCR 1200 MG PO ×2 (09:55→21:22)
[2025-02-27] MEDS: MONTELUKAST SODIUM 10 MG TABLET PO (09:56)
[2025-02-27] MEDS: TELMISARTAN 40 MG TABLET PO ×2 (09:56→21:22)
[2025-02-27] MEDS: SPIRONOLACTONE 25 MG TABLET PO (09:56)
[2025-02-27] MEDS: FOLIC ACID 1 MG TABLET PO (09:56)
[2025-02-27] MEDS: APIXABAN 5 MG TABLET PO (09:56)
[2025-02-27] MEDS: PANTOPRAZOLE 40 MG TABLET PO ×2 (09:56→21:22)
[2025-02-27] MEDS: ASPIRIN 81 MG ENTERIC TABLET PO (09:56)
[2025-02-27] MEDS: LIDOCAINE 5% PATCH 1 PATCH TRANSDERM (10:04)
--- NOTE | 2025-02-27 11:20 | PCOTNOTE ---
Patient being taken out of room for test.
--- NOTE | 2025-02-27 11:53 | P.CONPL_ITS ---
Assessment and Plan Assessment and plan (1) Asthma with exacerbation: Code(s): J45.901 - Unspecified asthma with (acute) exacerbation Status: Acute Assessment and Plan: Patient carries a long history of asthma with no evidence of fixed obstruction on her PFTs. She presents now with worsening shortness of breath, cough, phlegm production and wheezing in the emergency department. Recently discharged from the hospital on 02/16 following treatment for asthma exacerbation where she completed 5 days of steroids and was discharged on tripod 200, montelukast 10, rescue albuterol, guaifenesin 1200 p.r.n., oxygen 2 L at rest and 2 L with activity and CPAP 13 with 5 L bleed in. 02/27/25: no wheezes on exam. She has increased oxygen requirements. After talking to the her symptoms that he noticed were increased heart rate variability, increasing edema, 15 kg weight gain since discharged on 02/16/2025, I am not convinced this is an asthma exacerbation. She now has altered mental status. Plan: I will obtain an ABG to assess for hypercarbic respiratory failure. I will decrease the Solu-Medrol from 40 mg q.12 hours to 20 mg q.12. She has hemoptysis and I will discontinue aspirin and Eliquis at this time. She has a prominent dry hacking cough and I will place her on standing benzonatate 200 mg p.o. t.i.d. Continue her home dose of continue guaifenesin, montelukast, and Claritin. inpatient pulmonary consult services will resume on 03/01/2025. Call with questions. Discussed with Dr. Guzman. (2) Interstitial lung disease: Code(s): J84.9 - Interstitial pulmonary disease, unspecified Status: Acute Assessment and Plan: Patient with chronic interstitial lung disease which was first seen on CT scan of the chest 10/02/[address] pattern indeterminant for UIP and given a clinical diagnosis of fibrotic NSIP. most recent PFTs on 03/18/2023 with a mild restrictive abnormality with an FEV1 of 1.68 L, total lung capacity 3.06 L, 59% and moderately decreased DLCO that remained mildly decreased when corrected for alveolar volume. Compared to PFTs on 12/08/2021 there has been a significant decrease in the FEV1, total lung capacity with no significant change in the DLCO. Chronic hypoxemic respiratory failure requiring 2 L oxygen at rest, with activity and bleed in with her CPAP of 13 for her NBA. Serologies: 11/18/2021 anti CCP peptide less than 16. Anca screen negative. Demetra 1 antibody negative, SSA antibody negative, SSB antibody negative, [employer] antibody negative, Scl 70 scleroderma antibody negative. 05/13/2022: Rheumatoid factor less than 14. ABRAM positive 1-80, homogeneous nuclear. In pulmonary clinic on 08/11/2023: * Stable, clinically and by recent HRCT 02/15/24. * We planned on repeating PFTs but patient had to reschedule. We've agreed to hold off on PFTs for now since her symptoms are stable. Discussed the purpose of getting PFTs would be to determine if ILD has progressed and if so, offer a referral to [facility] ILD clinic which she's not too interested in, so we'll hold off on testing for now unless her symptoms change. 02/14/2024: Later in the patient had a CT angiogram of the chest and compared to 02/14/2024. There was negative for PE. Patient had interstitial lung disease with no change in her right upper lobe mild peripheral reticulations and improved ground-glass infiltrates. The right lower lobe demonstrated improved ground-glass infiltrates and no change in her dependent reticulations and bronchiectasis. The right middle lobe was spared in both examinations. There were improved ground-glass infiltrates in the left upper lobe with no change in her diffuse reticulations in the left upper lobe, lingula and left lower lobe. My opinion this is CT pattern indeterminant for UIP and could be consistent with fibrotic NSIP. 02/13/25: Serologies: Rheumatoid factor less than 12, negative.? Anti CCP 8, negative.? ABRAM screen positive 1:160, with negative anti DNA double-stranded, COM[employer] WORKER, Mcdermott, Mcdermott [employer] WORKER, anti scleroderma 70, anti SSA, anti SSB, anti chromatin antibodies, anti Ribosomal P Ab, anti Demetra 1, and anticentromere B antibody.? Hypersensitivity pneumonitis panel negative.? Anca screen with negative anti MPO antibody.? Negative anti PR3 antibody.? Negative cytoplasmic C ANCA.? Negative perinuclear ANCA.? Atypical p-ANCA is positive 160.? Myositis panel pending. 02/27/25: patient with worsening oxygenation, hemoptysis. Patient gained 15 kg since she was discharged from the hospital on 02/16/2025. BNP increased from 7930 on 02/25/2025 to 8710 today. Weight today is 95.3 kg with an admission weight of 104.2 kg. Yesterday she is positive 300 mL. Cumulative she -290 mL. Plan: I will obtain a CT angiogram of the chest. Regarding additional issues patient is being diuresed per Cardiology and hospitalist teams. She is getting CT angiogram of the chest today so agree with no IV Lasix today. Will reassess tomorrow. Patient is being treated for possible pneumonia with vancomycin given once on 02/25/2025 And MRSA swab on 02/25/2025 was negative, cefepime and doxycycline since 02/25/2025. Will continue for now. initial COVID, influenza, RSV RT PCR assay negative. I will repeat to ensure that this was a true positive. Will send respiratory pathogen panel, urine for Legionella antigen, urine for pneumococcal antigen and serum mycoplasma IgM. (3) NBA on CPAP: Code(s): G47.33 - Obstructive sleep apnea (adult) (pediatric); Z99.89 - Dependence on other enabling machines and devices Status: Chronic Assessment and Plan: NBA: * She is on CPAP 13 EPR 2 with 2L/min bleed in. This is a ResMed AirSense 11 from [employer]. * Download 05/11/24 - 08/08/24 shows CPAP used nightly for avg usage 8h3m per night. Overall AHI is 7.8. (This is an improvement from AHI 13.5 on CPAP 8cm last visit). * Continue CPAP with all episodes of sleep. Patient benefits from CPAP use. Follow up in about 6 months, or sooner as needed. Patient encouraged to contact the office with any questions or concerns in the interim. On the night of 02/12/2025 Patient required BiPAP rate of 4 pressures 02/09 inspiratory time 1.0 and a rise of 3. She said that this did help her work of breathing. 02/13/2025: patient is on CPAP 13 with 2 L bleed in. Plan: I will attempt to 10 a download from [employer]. Tonight I will place the patient on CPAP 13 with 2 L bleed in and perform an overnight oximetry. If she has increased work of breathing and cannot tolerate her CPAP will continue BiPAP with settings as above. 02/14/25: Patient wear her home CPAP 13 with 2 L bleed in and said that she slept better last night. Patient had an overnight oximetry with recording duration of 6 hours and 40 minutes. Average saturation 92%. Low saturation 82%. Time with saturation less than or equal to 88% was 65 minutes. Oxygen desaturation index 11.5. Download from 01/14/2025 through 02/12/2025 through [employer]. Patient is on CPAP 13 with an EPR level of 2. Usage days greater than or equal to 4 hours is 93%. Average usage on days used is 7 hours and 52 minutes. AHI 3.4. Apnea index 2.1, hypopnea index 1.3. Median leak 0.1. Ninety-fifth percentile leak 3.8. Maximum leak 10. I interpret this download as very good compliance, adequate pressures and low leak. 02/15/2025: Patient wore her home noninvasive ventilator with 4 L last night. She denies having issues with the mask or machine. Patient had an overnight oximetry with recording duration of 4 hours and 52 minutes. Average saturation 94%. Low saturation 80%. Time with saturation less than or equal to 88% was 8 minutes. Oxygen desaturation index 16.6. 02/16/25: Patient wore her home CPAP 13 with 5 L bleed Using her over the mouth under the nose mask in and said she did well. overnight oximetry with recording duration 5 hours and 47 minutes. Average saturation 96%. Low saturation 91%. Time with saturation less than or equal to 88% was 0 minutes. Oxygen desaturation index 2.2. 02/27: Patient has been wearing her home machine with 5 L bleed in. Plan: Continue her home CPAP 13 with 5 L bleed in. History of Present Illness History of Present Illness Consult date: 02/27/25 Chief complaint: Respiratory failure, Hyponatremia, Hcap Narrative: 02/27/25: This is a new pulmonary consult for shortness of breath an asthma exacerbation 79-year-old with a history of asthma, interstitial lung disease felt to be fibrotic NSIP, chronic hypoxic respiratory failure requiring 2 L at rest, with activity and with sleep, NBA on CPAP 13 and 2 L bleed in, chronic pain. At baseline patient patient and tell me she can walk 35 ft with a walker. She uses 2 L oxygen at rest with activity and bleed in at night with saturations 98% at rest. Her activity level has not changed over the last 6 months. I saw the patient in pulmonary consultation when she was admitted 02/10/2025 through 02/16/2025:? Patient admitted to [facility] with acute onset SOB and wheezing.? She presented to the ED with respiratory distress, worsening hypoxia with an ABG on 4 L 7.40/38/75, elevated BNP.? Patient was treated for asthma exacerbation, possible pneumonia and fluid overload with Solu-Medrol, bronchodilators, bronchodilators, ceftriaxone, azithromycin, IV Lasix.? Patient had a CT angiogram of the chest on 02/13/2025 and compared to 02/14/2024 there was no PE. Patient had interstitial lung disease with no change in her right upper lobe mild peripheral reticulations and improved ground-glass infiltrates. The right lower lobe demonstrated improved ground-glass infiltrates and no change in her dependent reticulations and bronchiectasis. The right middle lobe was spared in both examinations. There were improved ground-glass infiltrates in the left upper lobe with no change in her diffuse reticulations in the left upper lobe, lingula and left lower lobe. My opinion this is CT pattern indeterminant for UIP and could be consistent with fibrotic NSIP.? Lower extremity Dopplers were negative.? Patient has CT scan of the neck and chest on 02/15/25 that demonstrated no tracheobronchial malacia or soft tissue masses and improvement in her ground-glass infiltrates.? Serologies for autoimmune and connective tissue disease were sent.? ?The patient treated with Lasix and diuresed 6 L.? Her BNP improved from 13,500 to 33861.? Her weight improved from 97.8 kg on 02/10/25 to 89.9 kg on 02/16/25.? She had hypoxia on her overnight oximetry on CPAP 13 on 4 L that corrected on 5 L bleed in.? Home O2 assessment demonstrated she needs 2 L with rest and activity.? Patient was discharged on: Trelegy 200 at 1 puff q.day, Rescue albuterol 2 puffs Q 4 hours p.r.n. shortness of breath or wheezing, Montelukast 10 mg q.day and Guaifenesin 1200 mg p.o. b.i.d. p.r.n. chest congestion. takes notes on his computer and we reviewed these in detail: 02/17 through 02/19 the patient was doing well breathing on 2 L nasal cannula with saturations 95-96%. She was taking 2-3 steps and had no rash use respiratory issues. 02/20/2025 breathing was okay she started to have some confusion and memory issues. 02/21/2025 patient slept very well and had a good day with no memory or breathing issues. 02/22/2025 the patient slept poorly. She woke up at 3:30 a.m. and urinated all over the room. She started with coughing. Throughout the day she had increased cough with mucus that was thick. 02/23/2025 she had her best day since she had been home from the hospital. 02/24/2025 patient's heart rate was increasing intermittently. No breathing issues. 02/25/2025: She had worsening heart rate variability, she did sleep and she had gained 15 lb since discharge and the was worried about congestive heart failure and called EMS. Minimal changes in patient's respiratory status according to the . 02/25/2025 Patient admitted to [facility] with SOB, ABG 7.56/ and the patient was placed on BiPAP in the ER for increased work of breathing.? BNP 7930.? COVID influenza RSV RT PCR assay negative. Chest x-ray with persistent interstitial alveolar infiltrates left greater than right, perihilar infiltrates with no pleural effusions.? Her weight was 104.2 kg with a discharge weight on 02/16/2025 was 89.9 kg.? She was treated for congestive heart failure, hyponatremia, asthma exacerbation, possible pneumonia, fluid overload with IV Lasix, hyponatremia without specific means.? For continue diuresis nephrology recommended salt tablets prior to diuretics.? noticed hemoptysis. On 02/26 the patient was much improved with cefepime, Solu-Medrol, bronchodilators, IV Lasix. Patient was on 5 L nasal cannula. At 2:00 p.m. in the afternoon the patient became confused with no change in her breathing status according to the . Oxygen requirements increased throughout the day from 2 L up to 5 L. Patient wore home noninvasive ventilator with 5 L bleed in. 02/27/2025: Patient apparently aspirated on food. She has worsening mental status. Patient is on 2 L nasal cannula with saturations 96%. She is afebrile. White blood cell count 17.9, creatinine 0.87. BNP 8710. CRP 2.7. Weight today is 95.3 kg with an admission weight of 104.2 kg. Yesterday she is positive 300 mL. Cumulative she -290 mL. While talking to the patient she had 3 expectorations with bright red blood and some mucus. Saturations on 4 L were 95%. DATA: DATE Pre FVC (% pred) Pre FEV1 (% pred) Post FVC Post FEV1 TLC (% pred) FRC (% pred) RV (% pred) DLCO unadj (% pred) DLCO/VA (% pred) 03/18/23 2.11 (79) 1.68 (83) 2.13 1.73 3.06 (59) 0.88 (29) 0.73 (30) 9.30 (47) 2.68 (65) 09/20/22 2.13 (80) 1.70 (84) 2.14 1.69 3.85 (74) 1.73 (58) 1.55 (64) 9.5 (48) 2.72 (66) 12/08/21 2.78 (103) 2.19 (107) 2.83 2.31 5.12 (98) 3.00 (100) 2.17 (90) 10.5 (53) 2.96 (72) 02/27/25: modified barium swallow Recommend 1. Regular diet / Level 7 2. Moderately thick liquid / Level 3 3. Upright with meals 4. Small bites and drinks 5. No Straw 6. Chin- tuck posture with swallows. 7. Speech services to address laryngeal elevation and use of compensatory techniques. 02/15/25: EXAM/PROCEDURE: CT soft tissue neck chest wo HISTORY: Abnormal PFTs, assess for tracheal abnormality COMPARISON: Chest CT exam from February 132023, and 2024 TECHNIQUE: CT of the neck and chest without contrast FINDINGS: CT: The pharyngeal airway appears within normal limits Extensive atherosclerotic calcification in the carotid arteries right greater than left. Scattered nonpathologic sized lymph nodes. No large mass or drainable fluid collection. Diffuse degenerative changes throughout the bones. No gross acute process seen in the visualized intracranial contents or soft tissues of the neck. Vocal cord areas appear normal. Chest CT: The trachea is somewhat ectatic but there is no significant narrowing to confirm tracheomalacia. Tracheal wall calcification as well as bronchial wall calcification noted. Mild to moderate scattered fibrotic appearing changes. Groundglass opacification is slightly improved compared to the February 13, 2025 exam. Heart is mildly enlarged. Central main pulmonary artery also enlarged with the main pulmonary artery measuring approximately 4.3 cm in diameter. No significant pericardial effusion. Scattered mediastinal lymph nodes, mildly pathologic in size unchanged from the 2023 exam. In the upper abdomen, pneumobilia again noted along with cholecystectomy clips. No acute process seen in the visualized portions of the extrathoracic soft tissues. Degenerative changes throughout the bones. IMPRESSION: 1. No acute process involving the trachea identified; no evidence of tracheobronchomalacia on this exam. There is calcification throughout the tracheal air column and bronchial passages which is chronic and benign. 2. Other findings as above including a large central and main pulmonary arteries suggesting pulmonary arterial hypertension; interstitial lung pattern consistent with fibrosing form of nonspecific interstitial pneumonitis or possible mild UIP. Groundglass opacification could represent alveolar fibrosis versus superimposed acute atypical inflammatory/infectious pneumonitis. 02/15/24: CT Scan of the Chest without Contrast: Clinical Indication: Interstitial lung disease Technique: Contiguous sections were acquired throughout the chest without intravenous contrast. Dose reduction technique was used on this scan by utilizing automated exposure control and iterative reconstruction technique. The dose-length product (DLP) was 331.74 mGy-cm. COMPARISON: 03/18/2023 Findings: Mildly prominent mediastinal lymph nodes are stable from prior exam. No aortic aneurysm. Coronary artery calcification present. There is no evidence of pleural or pericardial effusion. Extensive interstitial thickening the lungs is similar to prior exam, with some increased background groundglass component throughout the lungs. Images through the upper abdomen reveal no abnormalities. There is extensive degenerative spondylosis in the spine. Impression: Stable extensive interstitial disease in the lungs. Mildly increased background groundglass opacity, which could reflect progressing interstitial disease versus other superimposed pathology such as bronchiolitis, asthma, or mild pulmonary edema, versus suboptimal inspiration. 09/20/22 - Home O2 Eval - Patient requires 2L/min O2 with ambulation and none at rest. 09/20/2022: This is a pulmonary function test with pre and post-bronchodilator spirometry, plethysmography and diffusing capacity. The test was performed and results interpreted in accordance with the 2019 and 2005 ATS/ERS Task Force guidelines respectively using the Global Lung Function Initiative-2012 reference equations. Patient demonstrated good effort and cooperation. Reproducibility criteria were met. The quality of the pre bronchodilator spirometry maneuver was Grade A and post bronchodilator spirometry maneuver was Grade A. Findings: Spirometry: The contour the expiratory flow tracing is notched in all pre and post bronchodilator efforts. The contour the inspiratory flow tracing is normal. The pre bronchodilator FVC is 2.13 L, 80% predicted. The pre bronchodilator FEV1 is 1.70 L, 84% predicted. The pre bronchodilator FEV1: FVC ratio is 80%. The post bronchodilator FVC is 2.14 L, representing no change. The post bronchodilator FEV1 is 1.69 L, representing a 1% decrease. The post bronchodilator FEV1: FVC ratio 79%. Plethysmography: The total lung capacity is 3.85 L, 74% predicted. The functional residual capacity is 1.73 L, 58% predicted. The residual volume is 1.55 L, 64% predicted. Diffusing capacity: The diffusing capacity unadjusted for hemoglobin and carboxyhemoglobin is 9.5, 48% predicted. The diffusing capacity adjusted for alveolar volume is 2.72, 66% predicted. Impression: The contour of the expiratory flow tracing demonstrates a reproducible notched pattern. The notched pattern has been described with coughing or tracheobronchomalacia. The contour the inspiratory flow tracing is normal. Otherwise, the spirometry is normal without evidence of an obstructive abnormality. There is a mild restrictive ventilatory abnormality with a normal FEV1. There is no significant improvement after inhaling a single dose of albuterol. The diffusing capacity unadjusted for hemoglobin and carboxyhemoglobin is moderately decreased and remains mildly decreased when adjusted for alveolar volume. There are no prior studies for comparison 09/20/2022: EXAMINATION: CT chest high resolution wo co DATE: 10/02/2021 12:18 INDICATION: Interstitial lung disease TECHNIQUE: Computed tomography (CT) of the chest was performed without intravenous contrast. The dose-length product was 517.08 mGy-cm. Automated exposure control and iterative reconstruction technique were employed. COMPARISON: Chest x-ray dated 08/18/2021 FINDINGS: There is mild mediastinal lymphadenopathy. AP window lymph node measuring 1 cm short axis. There is mild atherosclerosis of the aorta and coronary arteries. Borderline heart size. No significant pleural or pericardial effusion. Small hiatal hernia. Status post cholecystectomy with pneumobilia. There is a combination of peripheral interstitial lung disease with interlobular septal thickening and groundglass opacities. There is mild lower lobe bronchiectasis bilaterally. No pneumothorax. No endobronchial lesions. Mild emphysema. There is severe thoracic spondylosis with S-shaped scoliosis. No acute osseous abnormality. There are a few small nodules in both lungs measuring 2 mm or less, likely benign. IMPRESSION: 1. Coarse interstitial lung disease, likely chronic, in a pattern consistent with usual interstitial pneumonia (UIP). 2: Mild emphysema. 3: Mild mediastinal lymphadenopathy, likely reactive. 07/13/22: Echo Summary 1. Complete two-dimensional, color flow and Doppler transthoracic echocardiogram is performed. 2. Left ventricular chamber dimension is normal. 3. Left ventricular systolic function is hyperdynamic, estimated at >70%. 4. The left ventricular diastolic function is grade I diastolic dysfunction. 5. E/e' 9 is minimally elevated. 6. Left atrial chamber dimension is moderately enlarged. 7. There is mild aortic valve sclerosis. 8. No pulmonary hypertension, estimated pulmonary arterial systolic pressure is 24 mmHg. Right Ventricle Right ventricular systolic function is normal and with normal TAPSE 3.2 cm. Right ventricular chamber dimension is normal. Left Atria Left atrial chamber dimension is moderately enlarged. Right Atria Right atrial chamber dimension is normal. * 02/15/22 - Split PSG - Mild sleep apnea with AHI 8.1 and desaturation to 78%. CPAP 8cmH2O EPR 1 and 2L/min supplemental O2 was recommended. * 12/08/21 - PFT - Spirometry is normal without evidence of obstructive abnormality. * 12/08/21 - 6mw on home requirement 2L/min - The patient's resting 2 L nasal canula oxygen saturation measured by pulse oximetry was 98% and heart rate was 66 bpm. Patient ambulated for 61 meters and oxygen saturation remained 93 to 98%. Heart rate at the end of the study was 85 bpm. Of note, during the recovery phase the patient desaturated to a abdelrahman of 85% at 6 minutes and 32 seconds. Patient saturations increased and were 91% at 7 minutes and 8 seconds. * 12/08/21 - Echo - LV systolic function normal, EF 55-60%. Grade I diastolic dysfunction. Moderate LA enlargement. Trace mitral valve regurgitation. * 10/02/21 - EXAMINATION: CT chest high resolution wo co DATE: 10/02/2021 12:18 INDICATION: Interstitial lung disease TECHNIQUE: Computed tomography (CT) of the chest was performed without intravenous contrast. The dose-length product was 517.08 mGy-cm. Automated exposure control and iterative reconstruction technique were employed. COMPARISON: Chest x-ray dated 08/18/2021 FINDINGS: There is mild mediastinal lymphadenopathy. AP window lymph node measuring 1 cm short axis. There is mild atherosclerosis of the aorta and coronary arteries. Borderline heart size. No significant pleural or pericardial effusion. Small hiatal hernia. Status post cholecystectomy with pneumobilia. There is a combination of peripheral interstitial lung disease with interlobular septal thickening and groundglass opacities. There is mild lower lobe bronchiectasis bilaterally. No pneumothorax. No endobronchial lesions. Mild emphysema. There is severe thoracic spondylosis with S-shaped scoliosis. No acute osseous abnormality. There are a few small nodules in both lungs measuring 2 mm or less, likely benign. IMPRESSION: 1. Coarse interstitial lung disease, likely chronic, in a pattern consistent with usual interstitial pneumonia (UIP). 2: Mild emphysema. 3: Mild mediastinal lymphadenopathy, likely reactive. Review of Systems 2 Constitutional: Constitutional: Reports no additional constitutional complaints Eyes: Eyes: Reports no additional eye complaints ENT: Reports system reviewed and no additional complaints, except as documented Cardiovascular: Cardiovascular: Reports no additional cardiovascular complaints Respiratory: Respiratory: Reports no additional respiratory complaints Gastrointestinal: Gastrointestinal: Reports no additional gastrointestinal complaints Musculoskeletal: Musculoskeletal: Reports no additional musculoskeletal complaints Neurologic: Reports system reviewed and no additional complaints, except as documented Psychiatric: Psychiatric: Reports no additional psychiatric complaints Endocrine: Endocrine: Reports no additional endocrine complaints Hematologic/Lymphatic: Hematologic/Lymphatic: Reports no additional hematologic/lymphatic complaints Allergic/Immunologic: Allergic/Immunologic: Reports no additional allergic/immunologic complaints PENDING SALE TO [facility] Past Medical History Medical History Femur fracture, right Surgical screws Fracture, foot Right Metatarsal Anemia Undifferentiated connective tissue disease Depression with anxiety NBA on CPAP Dementia History of ARDS Diastolic dysfunction History of nuclear stress test History of abnormal electrocardiogram Genevieve's thyroiditis Rosacea w/ ocular involvement Depression History of rectocele History of migraine headaches Spondylosis of cervical spine Arthralgia H/O antinuclear antibodies intermittent +ABRAM to 1:320 Vascular disorder seronegative collagen disorder History of squamous cell carcinoma History of staph infection Chronic left shoulder pain arthritis; possibly inflammatory Fracture, rib Aftercare following finger joint replacement surgery Thyroiditis Scoliosis History of left heart catheterization Tubal ligation evaluation Enlarged ureter Supplemental oxygen dependent Hypertension Fibromyalgia CHF (congestive heart failure) Surgical History Surgical History History of cataract extraction with lens replacement History of arthroplasty of knee Left History of removal of pigmented skin lesion Nose 2021 History of hysterectomy Total History of ERCP History of fusion of lumbar spine L2-L5 lumbar fusion Titanium History of laminectomy History of total knee replacement History of cholecystectomy 2003 History of tubal ligation History of D&C History of hip surgery right Total knee replacement status Previous back surgery S/P peroneal tendon repair History of surgical removal of ganglion cyst 1960 H/O hernia repair 1947 Family History Family History Unknown No problems noted. Mother Esophageal cancer Other Alcohol abuse Cancer Hypertension Social History Social History Social History: She lives with her and has 3 biologic children. She also has 1 adopted child. 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 She is a former smoker. Code status full code Smoking packs per day: 1 Smoking cigarettes per day: 20.0 Years smoked: 10 Smoking pack-years: 10.00 Smoking status: Former smoker Tobacco type: cigarettes Second hand tobacco smoke exposure: No Smoking end date: 11/23/81 Additional smoking assessment comments: quit 1981 Alcohol intake: current Drinks per week: 1 Alcohol use details: 0-1 per week Substance use: never Substance use type: does not use Other substance usage details: social occassions Lack of Transportation: No Lack of Food: Never True Current Housing: I Have Housing Concerned About Future Housing: No Difficulty Paying Gas/Electric Bills: No Difficulty Paying for Meds: No Currently Unemployed: No Education: Decline to Answer Difficulty w/ Childcare or Family Care: No Living arrangements: with family Additional living arrangements comments: [facility]. Occupation/Education: retired Gender identity (if verbalized by the patient): Female Spiritual care concerns: No Agree to blood products: Yes Meds Home Medications and Allergies Home Medications ?Medication ?Instructions ?Recorded ?Confirmed ?Type docusate sodium 100 mg capsule 100 mg PO BID 11/18/21 02/25/25 History diclofenac sodium 1 % topical gel 4 g topical QID PRN Pain 05/13/22 02/25/25 History (Arthritis Pain (diclofenac)) telmisartan 40 mg tablet 40 mg PO BID 05/13/22 History spironolactone 25 mg tablet 25 mg PO DAILY 06/15/22 History albuterol sulfate 2.5 mg/3 mL 2.5 mg inhalation Q6-8H PRN 12/28/22 02/25/25 History (0.083 %) solution for nebulization shortness of breat h or wheezing naloxone 4 mg/actuation nasal spray 4 mg intranasal Q2 -3M PRN opioid 03/22/23 02/25/25 Rx overdose #2 ea fluticasone fur. 200 mcg-umeclid 1 inh inhalation STERLING Y #180 ea 12/27/23 02/25/25 Rx 62.5 mcg-vilant 25 mcg inhalat.powder (Trelegy Ellipta) albuterol sulfate 90 mcg/actuation 1 - 2 puff inhalati on Q4-6H PRN 02/21/24 02/25/25 Rx aerosol inhaler shortness of breath or wheez ing #25.5 grams aspirin 81 mg capsule 81 mg PO DAILY 03/08/2402/05 History cholecalciferol (vitamin D3) 50 2,000 unit PO DAILY 02/25/25 History mcg (2,000 unit) capsule omega 3 350 mg-dha 235 mg-epa 90 1 cap PO DAILY 02/25/25 History mg-fish oil 597 mg capsule,delay rel (Gregory-3) vibegron 75 mg tablet (Gemtesa) 75 mg PO DAILY 5 02/25/25 History CPAP 05/21/24 02/25/25 History Held on 02/25/25. Instructions: Patient not sleeping. loratadine 10 mg tablet (Claritin) 10 mg PO DAILY PRN allergy symptoms 05/21/24 02/25/25 History oxygen 05/21/24 02/25/25 History lidocaine 5 % topical patch See Rx Instructions .Route 07/23/24 02/25/25 Rx .COMPLEX #90 patches amlodipine 10 mg tablet 10 mg PO DAILY #90 tabs 08/0602/25/25 Rx fluoxetine 20 mg capsule 20 mg PO TID #270 caps 08/2702/25/25 Rx gabapentin 300 mg capsule 300 mg PO TID #270 caps 08/0602/25/25 Rx montelukast 10 mg tablet 10 mg PO DAILY #90 tabs 08/0602/25/25 Rx pantoprazole 40 mg tablet,delayed 40 mg PO BID #180 ta bs 08/27/24 02/25/25 Rx release pravastatin 40 mg tablet 40 mg PO DAILY #90 tabs 08/0602/25/25 Rx levothyroxine 150 mcg tablet 150 mcg PO DAILY #90 tabs 08/28/24 02/25/25 Rx (Synthroid) nebivolol 10 mg tablet (Bystolic) 10 mg PO DAILY #90 t abs 08/28/24 02/25/25 Rx folic acid 1 mg tablet 1 mg PO DAILY #90 tabs 09/0302/25/25 Rx nystatin 100,000 unit/gram topical 1 applic topical BI D PRN rash #60 11/01/24 02/25/25 Rx powder grams donepezil 5 mg tablet 5 mg PO QHS #90 tabs 5 02/25/25 Rx apixaban 5 mg tablet (Eliquis) 5 mg PO Q12HR #180 tabs 02/16/25 02/25/25 Rx benzonatate 200 mg capsule 200 mg PO TID PRN cough 7 d ays #20 02/16/25 02/25/25 Rx caps furosemide 20 mg tablet (Lasix) 20 mg PO BID PRN weigh t gain #60 02/16/25 02/25/25 Rx tabs guaifenesin 600 mg tablet, 1,200 mg (2 x 600 mg) PO Q1 2HR #60 02/16/25 02/25/25 Rx extended release 12 hr (Mucus tabs Relief ER) Allergies Allergy/AdvReac Type Severity Reaction Status Date / Time clindamycin Allergy Severe Chills Verified 02/25/25 06:13 diazepam Allergy Severe suicidal Verified 02/25/25 06:13 ideation levofloxacin (From Levaquin) Allergy Intermediate Itching Verified 02/25/25 06:13 cat dander Allergy Unknown Sinusitis Verified 02/25/25 06:13 dog dander Allergy Unknown Sinusitis Verified 02/25/25 06:13 feathers Allergy Unknown Sinusitis Verified 02/25/25 06:13 grass pollen Allergy Unknown Sinusitis Verified 02/25/25 06:13 house dust Allergy Unknown Sinusitis Verified 02/25/25 06:13 Rabbit Allergy Unknown Sinusitis Verified 02/25/25 06:13 tree and shrub pollen Allergy Unknown Sinusitis Verified 02/25/25 06:13 adhesive tape Allergy Redness of Verified 02/25/25 06:13 Skin silicone Allergy Unknown Verified 02/25/25 06:13 meperidine (From Demerol) AdvReac Hallucinati Verified 02/25/25 06:13 ng oxycodone (From Percocet) AdvReac Nausea Verified 02/25/25 06:13 propoxyphene AdvReac Nausea and Verified 02/25/25 06:13 Vomiting Vital Signs Vital Signs - 24 hr 02/26/25 12:00 02/26/25 14:00 02/26/25 14:11 Temperature Pulse Rate 73 73 Respiratory Rate Blood Pressure Pulse Oximetry Oxygen Delivery Nasal Cannula Oxygen Flow Rate 5 Fraction of Inspired Oxygen 02/26/25 14:31 02/26/25 14:40 02/26/25 15:15 Temperature 36.6 C Pulse Rate 71 74 73 Respiratory Rate 18 18 20 Blood Pressure 123/55 L Pulse Oximetry 92 Oxygen Delivery Oxygen Flow Rate Fraction of Inspired Oxygen 02/26/25 16:00 02/26/25 18:00 02/26/25 20:00 Temperature 36.9 C Pulse Rate 67 67 75 Respiratory Rate 18 Blood Pressure 114/51 L Pulse Oximetry 90 Oxygen Delivery Oxygen Flow Rate Fraction of Inspired Oxygen 02/26/25 20:00 02/26/25 20:00 02/26/25 21:20 Temperature Pulse Rate 69 76 Respiratory Rate 20 Blood Pressure Pulse Oximetry 92 92 Oxygen Delivery Nasal Cannula Nasal Cannula Oxygen Flow Rate 5 5 Fraction of Inspired Oxygen 02/26/25 21:20 02/26/25 21:26 02/27/25 00:00 Temperature 36.9 C Pulse Rate 74 73 69 Respiratory Rate 20 Blood Pressure 123/70 Pulse Oximetry 92 Oxygen Delivery Oxygen Flow Rate Fraction of Inspired Oxygen 02/27/25 00:00 02/27/25 00:00 02/27/25 01:36 Temperature Pulse Rate 79 67 Respiratory Rate Blood Pressure Pulse Oximetry 90 94 Oxygen Delivery CPAP CPAP Oxygen Flow Rate 5 Fraction of Inspired Oxygen 02/27/25 02:00 02/27/25 04:00 02/27/25 04:00 Temperature Pulse Rate 69 66 Respiratory Rate 20 Blood Pressure Pulse Oximetry 96 Oxygen Delivery CPAP Oxygen Flow Rate 5 Fraction of Inspired Oxygen 02/27/25 04:00 02/27/25 06:00 02/27/25 07:58 Temperature 36.3 C L Pulse Rate 60 70 Respiratory Rate 20 Blood Pressure 128/69 Pulse Oximetry 94 94 Oxygen Delivery Nasal Cannula Oxygen Flow Rate 2 Fraction of Inspired Oxygen 02/27/25 07:58 02/27/25 08:00 02/27/25 08:06 Temperature 36.5 C Pulse Rate 60 66 65 Respiratory Rate 24 H 20 20 Blood Pressure 144/78 H Pulse Oximetry 92 Oxygen Delivery Oxygen Flow Rate Fraction of Inspired Oxygen 02/27/25 09:54 Temperature Pulse Rate 60 Respiratory Rate Blood Pressure Pulse Oximetry Oxygen Delivery Oxygen Flow Rate Fraction of Inspired Oxygen Exam 2 Const: General: cooperative, healthy appearing and comfortable O rientation/consciousness: oriented to person, oriented to place and oriented to time HENMT: Head: normal to inspection Ears: hearing grossly normal bilaterally Eyes: General: appearance normal, both eyes and all related structures Neck: Neck: normal visual inspection Chest: Chest palpation & inspection: normal inspection of the chest Resp: Effort & Inspection: normal respiratory effort and able to speak in complete sentences Auscultation: crackles, no rales, no rhonchi, no wheezes and lung sounds not diminished Other: Bibasilar dry inspiratory crackles left greater than right. No wheezing. Cardio: Jugular venous distension: no JVD GI: Inspection: normal to inspection Skin: General skin exam: normal color Neuro: General: oriented to person, oriented to place and oriented to time Extrem: General: normal to inspection Other: worsening edema than prior admission Psych: Appearance: grossly normal Results Laboratory Findings 02/26/25 16:21 02/26/25 16:21 ABG, PT/INR, D-dimer: ABG ABG pH 7.557 (7.350-7.450) H* 02/25/25 00:41 ABG pCO2 23.8 mmHg (35.0-45.0) L* 02/25/25 00:41 ABG pO2 91.3 mmHg (80.0-100.0) 02/25/25 00:41 ABG O2 Saturation 98.0 % (95.0-100.0) 02/25/25 00:41 Abnormal lab findings: Abnormal Labs 02/25/25 02/25/25 02/25/25 00:41 00:49 05:29 WBC 11.1 H RBC 2.37 L Hgb 7.3 L Hct 21.7 L RDW 14.6 H Plt Count 146 L MPV 11.5 H Immature Gran % (Auto) 4.3 H Neut % (Auto) Lymph % (Auto) 8.8 L [place] % (Auto) 19.7 H Baso % (Auto) 0.1 L Lymph # (Auto) [place] # (Auto) 2.2 H Abs Immat Gran (auto) 0.48 H Absolute Neuts (auto) 7.4 H ABG pH 7.557 H* ABG pCO2 23.8 L* ABG HCO3 20.7 L ABG O2 Content 11.6 L Total Hemoglobin 8.4 L Sodium 117 L* 119 L* Chloride 88 L 89 L Carbon Dioxide 19 L BUN Estimated GFR 58 L Glucose 121 H Magnesium 1.5 L AST NT-Pro-B Natriuret Pep 7930 H 02/25/25 02/25/25 02/25/25 08:48 15:37 20:37 WBC RBC 2.41 L Hgb 7.4 L Hct 22.2 L RDW 14.6 H Plt Count 140 L MPV 11.5 H Immature Gran % (Auto) 1.9 H Neut % (Auto) 89.7 H Lymph % (Auto) 3.6 L [place] % (Auto) Baso % (Auto) 0.1 L Lymph # (Auto) 0.32 L [place] # (Auto) Abs Immat Gran (auto) 0.17 H Absolute Neuts (auto) 7.9 H ABG pH ABG pCO2 ABG HCO3 ABG O2 Content Total Hemoglobin Sodium 121 L 122 L 123 L Chloride 90 L 91 L 92 L Carbon Dioxide 19 L 21 L BUN 19 H 18 H Estimated GFR 56 L Glucose 142 H 148 H 154 H Magnesium AST 41 H NT-Pro-B Natriuret Pep 02/26/25 02/26/25 04:01 16:21 WBC 14.7 H RBC 2.24 L 2.55 L Hgb 7.3 L 7.9 L Hct 21.7 L 23.6 L RDW 14.9 H 14.8 H Plt Count 122 L MPV 12.3 H 10.8 H Immature Gran % (Auto) 1.3 H 2.4 H Neut % (Auto) 90.9 H 91.0 H Lymph % (Auto) 2.6 L 1.8 L [place] % (Auto) Baso % (Auto) 0.0 L 0.1 L Lymph # (Auto) 0.21 L 0.26 L [place] # (Auto) 0.7 H Abs Immat Gran (auto) 0.11 H 0.35 H Absolute Neuts (auto) 7.4 H 13.4 H ABG pH ABG pCO2 ABG HCO3 ABG O2 Content Total Hemoglobin Sodium 125 L 127 L Chloride 95 L 96 L Carbon Dioxide 21 L BUN Estimated GFR 54 L Glucose 138 H 148 H Magnesium AST 37 H NT-Pro-B Natriuret Pep Diagnostic Findings Additional studies: ITS Impressions Chest X-Ray 02/25/25 11:03 IMPRESSION: 1. Persistent interstitial and mild airspace opacities in both lungs, left greater than right, which is most likely related to chronic initial lung disease with differential including recurrent mild pulmonary edema or pneumonia.
--- NOTE | 2025-02-27 12:09 | PCSTNOTE ---
Please refer to the Modified Barium Swallow Evaluation in the EMR. The patient is a 79 year old female admitted with respiratory failure. MBS recommended secondary to concerns for aspiration based on BSE. Patient was last seen at this facility for a MBS 10/24/24. The patient was positioned in a lateral view and presented the following consistencies: 5cc/tsp thin, 5cc/tsp mildly thick liquid, mildly thick liquid via cup, moderately thick liquid via cup, puree/pudding, and cracker/ solids. Oral Stage: Timely oral preparation and transit for all consistencies presented. Pharyngeal stage: When presented 5cc tsp thin liquid, cup trials mildly thick liquid barium(with and without chin-tuck) and cup trials moderately thick liquid barium(without chin tuck) the patient was noted to have christy laryngeal penetration above the vocal cords but not ejected due to reduced laryngeal elevation. When presented moderately thick liquid via cup with chin tuck utilization bolus was controlled during the swallow without laryngeal penetration. Once instructed the patient was able to utilize the chin tuck posture. No aspiration or penetration was noted with both pudding and cracker consistency. Recommend 1. Regular diet / Level 7 2. Moderately thick liquid / Level 3 3. Upright with meals 4. Small bites and drinks 5. No Straw 6. Chin-tuck posture with swallows. 7. Speech services to address laryngeal elevation and use of compensatory techniques.
[2025-02-27 12:21] LABS: Hematocrit 23.7 % (37.0-47.0); Hemoglobin 7.7 g/dL (12.0-15.0); Mean Corpuscular HGB Conc 32.5 g/dl (32-36); Mean Corpuscular Hemoglobin 31.3 pg (26-34); Mean Corpuscular Volume 96.3 fl (80-100); Platelet Count Result 162 k/mm3 (150-375); Red Blood Count 2.46 M/mm3 (4.2-5.4); White Blood Count 17.9 K/mm3 (4.5-10.0)
[2025-02-27 12:40] LABS: Anisocytosis Occasional; Band Neutrophils Percent 0 % (0-6); Basophils Absolute Manual 0.00 K/mm3 (0.0-0.1); Basophils Percent Manual 0 % (0-1); Eosinophils Absolute Manual 0.00 K/mm3 (0.02-0.50); Eosinophils Percent Manual 0 % (0-4); Lymphocytes Absolute Manual 0.35 K/mm3 (1.1-4.5); Lymphocytes Percent Manual 2 % (18-44); Monocytes Absolute Manual 0.89 K/mm3 (0.1-0.90); Monocytes Percent Manual 5 % (3-9); Neutrophils Absolute Manual 16.64 K/mm3 (1.3-6.7); Neutrophils Percent Manual 93 % (46-73); Total Cells Counted 100
[2025-02-27 12:41] LABS: Acanthocytes 1+; Burr Cells 1+; Ovalocytes Occasional
[2025-02-27 12:42] LABS: Schistocytes Rare
[2025-02-27 12:43] LABS: CRP 2.7 mg/dL (<1.0)
[2025-02-27 12:48] LABS: Alanine Aminotransferase 32 U/L (6-35); Albumin Level 4.2 g/dL (3.5-5.1); Alkaline Phosphatase 80 U/L (38-126); Anion Gap 8 mmol/L (4-12); Aspartate Amino Transferase 36 U/L (14-36); Bilirubin,Total 1.0 mg/dL (0.2-1.3); Blood Urea Nitrogen 18 mg/dL (7-17); Calcium 10.2 mg/dL (8.4-10.2); Carbon Dioxide 24 mmol/L (22-30); Chloride 99 mmol/L (98-107); Estimated CRCL calculation 51 ml/min; Estimated Glomerular Filt Rate > 60; Glucose 107 mg/dL (65-110); Potassium 4.2 mmol/L (3.4-5.0); Sodium 131 mmol/L (137-145); Total Protein 7.0 g/dL (6.3-8.2)
[2025-02-27 12:49] LABS: NT Pro B Type Natriuretic Pept 8710 pg/mL (19.9-100)
--- NOTE | 2025-02-27 13:00 | P.PNNP_ITS ---
Progress Note: A&P Assessment and Plan (1) Hyponatremia: Code(s): E87.1 - Hypo-osmolality and hyponatremia Status: Acute Assessment and Plan: * acute on chronic * sodium runs in the high 120s to low 130s since 2021 * evaluation to date noted: * no evidence of cancer/malignancy * head CT negative * CXRs with interstitial fibrosis and COPD * cortisol was low but on methylprednisolone - retest this down the line after she is off the steroids... * TSH is okay * SSRI (fluoxetine) use * serum & urine osmolality and SPEP/UPEP pending * suspect due to a combination of lung disease + SSRI use (fluoxetine) * corrected at a appropriate rate without any specific intervention (other than holding loop diuretics) * if necessary or sdoium drops again, can re-start/resume fluid restriction * follow trend of sodium (2) CHF (congestive heart failure): Code(s): I50.9 - Heart failure, unspecified Status: Acute Assessment and Plan: * known history of diastolic dysfunction * Cardiology following * she should get a salt tablet with each dose of loop diuretics to keep the sodium from dropping (3) Interstitial lung disease: Code(s): J84.9 - Interstitial pulmonary disease, unspecified Status: Chronic Assessment and Plan: * Pulmonary recommendations noted * continue supportive therapy (4) Hypertension: Qualifiers: Hypertension type: primary hypertension Qualified Code(s): I10 - Essential (primary) hypertension Code(s): I10 - Essential (primary) hypertension Status: Chronic Assessment and Plan: * reasonable control * follow trend of hemodynamics Not much else to add -- will continue to follow intermittently. L Subjective Date/time seen: 02/27/25 13:00 Interval history: Follow-up for acute on chronic hyponatremia. Chart reviewed -- assuming care from Dr. Chinchilla; sodium continues to improve with minimal interventions; no apparent distress voiced at the time of my visit; no issues/events overnight or earlier this morning. Exam 2 Narrative: General: elderly but WD/WN female in NAD Heart: normal S1 and S2; no rub Lungs: decreased at bases Abdomen: soft, nontender, nondistended, positive bowel sounds Extremities: no cyanosis or clubbing; trace edema Skin: warm and dry Objective Data Vital Signs Vital Signs: Vital Signs Temp Pulse Resp BP Pulse Ox O2 Del Method O2 Flow Rate 02/27/25 12:00 60 02/27/25 12:00 96 High Flow Therapy with Na 6 02/27/25 11:56 97.4 F L 64 22 H 119/44 L 96 02/27/25 10:00 60 02/27/25 09:54 60 02/27/25 08:06 65 20 02/27/25 08:00 67 02/27/25 08:00 100 High Flow Therapy with Na 5 02/27/25 08:00 97.7 F 66 20 144/78 H 92 02/27/25 07:58 60 24 H 02/27/25 07:58 94 Nasal Cannula 2 02/27/25 06:00 70 02/27/25 04:00 97.3 F L 60 20 128/69 94 02/27/25 04:00 66 02/27/25 04:00 20 96 CPAP 5 02/27/25 02:00 69 02/27/25 01:36 67 94 CPAP 02/27/25 00:00 79 02/27/25 00:00 90 CPAP 5 02/27/25 00:00 98.5 F 69 20 123/70 92 02/26/25 21:26 73 02/26/25 21:20 74 02/26/25 21:20 92 Nasal Cannula 5 02/26/25 20:00 76 02/26/25 20:00 69 20 92 Nasal Cannula 5 02/26/25 20:00 98.5 F 75 18 114/51 L 90 Intake/Output Intake/Output: Intake & Output 02/24/25 02/25/25 02/26/25 02/27/25 23:59 23:59 23:59 23:59 Intake Total 1220 1100 1270 Output Total 5225 049 1527 Balance -130 300 -130 Meds/Results Medications: Active Medications Generic Name Dose Route Start Last Admin Trade Name Freq PRN Reason Stop Dose Admin Acetaminophen 650 mg 02/25/25 02:42 Acetaminophen 325 Mg Tablet PO Q4H PRN Mild Pain (1-3) or Fever Albuterol 2.5 mg 02/25/25 15:24 Albuterol Sulfate Neb 2.5 Mg/3 Ml Inh INHALATION Q6HRT PRN Shortness Of Breath Or Wheezing Albuterol/Ipratropium 3 ml 02/25/25 08:00 02/27/25 14:16 Ipratropium 0.5 Mg/Albuterol Sulfate 2.5 Mg (Base) Ampul.Neb 3 Ml INHALATION 3 ml Q6HRT VIN Administration Amlodipine Besylate 10 mg 02/26/25 09:00 02/27/25 09:56 Amlodipine Besylate 10 Mg Tablet PO 10 mg DAILY VIN Administration Benzonatate 200 mg 02/27/25 22:00 Benzonatate 100 Mg Capsule PO Q8HR VIN Diclofenac Sodium 0 applic 02/25/25 15:24 Diclofenac Sodium 1% 100 Gm Gel (*Bkc) TOPICAL QID PRN JOINT PAIN Docusate Sodium 100 mg 02/25/25 21:00 02/27/25 09:56 Docusate Sodium 100 Mg Capsule PO Not Given Q12HR VIN Donepezil HCl 5 mg 02/25/25 21:00 02/26/25 20:22 Donepezil Hcl 5 Mg Tablet PO 5 mg QHS VIN Administration Fish Oil 1 gm 02/26/25 09:00 02/27/25 09:54 [place] 3 Polyunsat Fatty Acids 1 Gm Cap PO 1 gm DAILY VIN Administration Fluoxetine HCl 20 mg 02/25/25 22:00 02/27/25 13:36 Fluoxetine Hcl 20 Mg Capsule PO 20 mg Q8HR VIN Administration Folic Acid 1 mg 02/26/25 09:00 02/27/25 09:56 Folic Acid 1 Mg Tablet PO 1 mg DAILY VIN Administration Furosemide 20 mg 02/26/25 09:00 02/27/25 09:55 Furosemide 20 Mg Tablet PO 20 mg DAILY VIN Administration Gabapentin 300 mg 02/25/25 15:35 02/27/25 13:36 Gabapentin 300 Mg Capsule PO 300 mg Q8HR VIN Administration Guaifenesin 1,200 mg 02/25/25 21:00 02/27/25 09:55 Guaifenesin 12 Hr 600 Mg Tabcr PO 1,200 mg Q12HR VIN Administration Cefepime HCl 2 gm/ Sodium 50 mls @ 100 mls/hr 02/25/25 17:00 02/27/25 16:52 Chloride IVPB 100 mls/hr Q12H VIN Administration Doxycycline Hyclate 100 mg/ 100 mls @ 100 mls/hr 02/25/25 10:30 02/27/25 09:54 Sodium Chloride IVPB 03/01/25 21:59 100 mls/hr Q12HR VIN Administration Levothyroxine Sodium 150 mcg 02/26/25 06:30 02/27/25 05:45 Levothyroxine Sodium 150 Mcg Tablet PO 150 mcg DAILY@0630 VIN Administration Lidocaine 1 patch 02/26/25 09:00 02/27/25 10:04 Lidocaine 5% Patch TRANSDERM 1 patch DAILY VIN Administration Loratadine 10 mg 02/25/25 15:24 Loratadine 10 Mg Tablet PO DAILY PRN allergy symptoms Lorazepam 2 mg 02/26/25 23:03 02/26/25 23:39 Lorazepam (*Crx) 1 Mg Tablet PO 2 mg Q4H PRN Administration Anxiety Methylprednisolone Sodium Succinate 20 mg 02/27/25 21:00 Methylprednisolone Sod Succ 40 Mg Vial IV PUSH Q12HR VIN Miscellaneous Information 1 each 02/26/25 00:01 02/27/25 09:53 Naloxone Nasal [place] Is Nonform; Ok To Hold This Until Pt Discharged? XX 03/28/25 00:00 Not Given CLARIFY VIN Miscellaneous Information 1 each 02/26/25 00:01 02/27/25 09:53 Gemtesa Is Nonform; Can Pt Use From Home? XX 03/28/25 00:00 Not Given CLARIFY VIN Montelukast Sodium 10 mg 02/26/25 09:00 02/27/25 09:56 Montelukast Sodium 10 Mg Tablet PO 10 mg DAILY VIN Administration Nebivolol 10 mg 02/26/25 09:00 02/27/25 09:54 Nebivolol Hcl 5 Mg Tablet PO 10 mg DAILY VIN Administration Non-Formulary Medication 4 mg 02/25/25 15:24 Naloxone NASAL Q2-3M PRN opioid overdose Non-Formulary Medication 75 mg 02/26/25 09:00 Vibegron [Gemtesa] PO 03/28/25 08:59 DAILY VIN Ondansetron HCl 4 mg 02/25/25 02:42 Ondansetron Inj 4 Mg/2 Ml Vial IV PUSH Q4H PRN Nausea Pantoprazole Sodium 40 mg 02/25/25 21:00 02/27/25 09:56 Pantoprazole 40 Mg Tablet PO 40 mg Q12HR VIN Administration Pravastatin Sodium 40 mg 02/26/25 09:00 02/27/25 09:55 Pravastatin Sodium 20 Mg Tablet PO 40 mg DAILY VIN Administration Spironolactone 25 mg 02/26/25 09:00 02/27/25 09:56 Spironolactone 25 Mg Tablet PO 25 mg DAILY VIN Administration Telmisartan 40 mg 02/25/25 21:00 02/27/25 09:56 Telmisartan 40 Mg Tablet PO 40 mg Q12HR VIN Administration Vitamin D 50 mcg 02/26/25 09:00 02/27/25 09:55 Cholecalciferol (Vitamin D3) 25 Mcg (1,000 Units) Tablet PO 50 mcg DAILY VIN Administration Radiology Results: ITS Impressions Chest X-Ray 02/25/25 11:03 IMPRESSION: 1. Persistent interstitial and mild airspace opacities in both lungs, left greater than right, which is most likely related to chronic initial lung disease with differential including recurrent mild pulmonary edema or pneumonia. Modified Barium Swallow 02/27/25 12:16 IMPRESSION: Laryngeal penetration without aspiration. Please correlate with speech pathologist findings and specific feeding recommendations. Labs Labs: Laboratory Tests 02/27/25 12:15 02/27/25 12:15 Calcium 10.2 Total Bilirubin 1.0 AST 36 ALT 32 Alkaline Phosphatase 80 C-Reactive Protein 2.7 H NT-Pro-B Natriuret Pep 8710 H Total Protein 7.0 Albumin 4.2 Procalcitonin 0.1 Microbiology 02/25/25 21:28 Sputum Sputum White Blood Cells - Final 02/25/25 21:28 Sputum Sputum Epithelial Cells - Final 02/25/25 21:28 Sputum Gram Stain Sputum Result 1 - Preliminary 02/25/25 21:28 Sputum Gram Stain Sputum Result 2 - Final 02/25/25 21:28 Sputum Gram Stain Sputum Result 3 - Final 02/25/25 21:28 Sputum Gram Stain Sputum Result 4 - Final 02/25/25 21:28 Sputum Gram Stain Evaluation - Final 02/25/25 21:28 Sputum Sputum Culture - Preliminary 02/25/25 03:01 Blood Blood Culture - Preliminary 02/25/25 03:24 Blood Blood Culture - Preliminary
[2025-02-27 13:05] LABS: Procalcitonin 0.1 ng/mL
[2025-02-27 13:13] LABS: Alveolar/Arterial O2 Gradient 194.3 mmHg; Fractional Inspired Oxygen 44 %; HCO3 ABG 23.7 mEq/l (22.0-26.0); Oxygen Content ABG 11.1 %vol (16.0-22.0); Oxygen Saturation ABG 93.3 % (95.0-100.0); PCO2 ABG 43.4 mmHg (35.0-45.0); PO2 ABG 69.9 mmHg (80.0-100.0); PO2 FiO2 Ratio Arterial Blood 1.59 %
[2025-02-27 13:14] LABS: Modified Allen's Test Pass
[2025-02-27 13:15] LABS: Liters per Minute 6.0 LPM
[2025-02-27] MEDS: BENZONATATE 100 MG CAPSULE 200 MG PO ×2 (13:36→21:23)
[2025-02-27 14:18] LABS: Influenza A QL RT-PCR Negative (Negative); Influenza B QL RT-PCR Negative (Negative); RSV RNA, RT-PCR Negative (Negative); SARS-CoV-2 RNA PCR Negative (Negative)
[2025-02-27 21:07] LABS: Osmolality, Serum 259 mOsmol/kg (280-301)
[2025-02-27] MEDS: DONEPEZIL HCL 5 MG TABLET PO (21:21)
[2025-02-27] MEDS: DOCUSATE SODIUM 100 MG CAPSULE PO (21:21)
[2025-02-27] MEDS: LORazepam (*CRX) 1 MG TABLET 2 MG PO (21:24)
[2025-02-27 23:07] LABS: Osmolality, Urine 242 mOsmol/kg (.)
[2025-02-28] VITALS (37 sets, daily range): BP systolic 117–135; BP diastolic 53–107; PULSE 57–97; RESP 18–22; TEMP 36.4–37; O2SAT 91–99
[2025-02-28] MEDS: IPRATROPIUM 0.5 MG/ALBUTEROL SULFATE 2.5 MG (BASE) AMPUL.NEB 3 ML INHALATION ×4 (02:38→20:25)
[2025-02-28] MEDS: CEFEPIME 2 GM in SODIUM CHLORIDE 0.9% IV 50 ML 100 ML IVPB ×2 (04:05→17:28)
[2025-02-28 04:10] LABS: Immature Granulocyte Percent A 2.1 % (0-0.5); Immature Platelet Fraction Pct 7.7 % (0.9-11.2); Lymphocytes Absolute Auto 0.40 K/mm3 (0.9-3.2); Mean Corpuscular HGB Conc 31.9 g/dl (32-36); Mean Corpuscular Hemoglobin 31.0 pg (26-34); Mean Corpuscular Volume 97.1 fl (80-100); Nucleated Red Blood Cells Absolute Auto 0.000 K/mm3 (0.0-0.012); Nucleated Red Blood Cells Perc 0.0 % (0.0-0.2); Platelet Count Result 125 k/mm3 (150-375); Red Blood Count 2.10 M/mm3 (4.2-5.4); White Blood Count 11.4 K/mm3 (4.5-10.0)
[2025-02-28 04:41] LABS: Hemoglobin 6.5 g/dL (12.0-15.0)
[2025-02-28 04:42] LABS: Hematocrit 20.4 % (37.0-47.0)
[2025-02-28 04:43] LABS: Anisocytosis 1+; Hypochromasia 1+; Microcytosis 1+ (NORMAL); Poikilocytosis 1+
[2025-02-28 04:44] LABS: Ovalocytes 1+
[2025-02-28 04:45] LABS: Acanthocytes Occasional; Schistocytes Rare
[2025-02-28 04:57] LABS: Alanine Aminotransferase 24 U/L (6-35); Albumin Level 3.7 g/dL (3.5-5.1); Alkaline Phosphatase 72 U/L (38-126); Anion Gap 7 mmol/L (4-12); Aspartate Amino Transferase 23 U/L (14-36); Bilirubin,Total 0.9 mg/dL (0.2-1.3); Blood Urea Nitrogen 19 mg/dL (7-17); Calcium 9.6 mg/dL (8.4-10.2); Carbon Dioxide 23 mmol/L (22-30); Chloride 98 mmol/L (98-107); Estimated CRCL calculation 50 ml/min; Estimated Glomerular Filt Rate > 60; Glucose 131 mg/dL (65-110); Potassium 4.8 mmol/L (3.4-5.0); Sodium 128 mmol/L (137-145); Total Protein 6.3 g/dL (6.3-8.2)
[2025-02-28] MEDS: BENZONATATE 100 MG CAPSULE 200 MG PO ×3 (06:23→22:26)
[2025-02-28] MEDS: GABAPENTIN 300 MG CAPSULE PO ×3 (06:24→22:26)
[2025-02-28] MEDS: LEVOTHYROXINE SODIUM 150 MCG TABLET PO (06:24)
[2025-02-28] MEDS: DOXYCYCLINE IV 100 MG in SODIUM CHLORIDE 0.9% IV 100 ML IVPB ×2 (09:13→20:58)
[2025-02-28] MEDS: LIDOCAINE 5% PATCH 1 PATCH TRANSDERM (09:13)
[2025-02-28] MEDS: TELMISARTAN 40 MG TABLET PO ×2 (09:14→20:59)
[2025-02-28] MEDS: DOCUSATE SODIUM 100 MG CAPSULE PO ×2 (09:14→20:59)
[2025-02-28] MEDS: guaiFENesin 12 HR 600 MG TABCR 1200 MG PO ×2 (09:14→20:59)
[2025-02-28] MEDS: MONTELUKAST SODIUM 10 MG TABLET PO (09:14)
[2025-02-28] MEDS: CHOLECALCIFEROL (VITAMIN D3) 25 MCG (1,000 UNITS) TABLET 50 MCG PO (09:15)
[2025-02-28] MEDS: OMEGA 3 POLYUNSAT FATTY ACIDS 1 GM CAP PO (09:15)
[2025-02-28] MEDS: NEBIVOLOL HCL 5 MG TABLET 10 MG PO (09:15)
[2025-02-28] MEDS: PANTOPRAZOLE 40 MG TABLET PO ×2 (09:15→20:59)
[2025-02-28] MEDS: FOLIC ACID 1 MG TABLET PO (09:15)
[2025-02-28] MEDS: SPIRONOLACTONE 25 MG TABLET PO (09:15)
[2025-02-28] MEDS: PRAVASTATIN SODIUM 20 MG TABLET 40 MG PO (09:15)
[2025-02-28] MEDS: FUROSEMIDE 20 MG TABLET PO (09:15)
[2025-02-28] MEDS: SODIUM CHLORIDE 500 MG TABLET PO (09:23)
[2025-02-28] MEDS: SODIUM CHLORIDE 0.9% IV 250 ML 30 ML IV CONT (12:57)
[2025-02-28] MEDS: TUBING, BLOOD PLUM PUMP TUBING 1 EACH XX (12:57)
--- NOTE | 2025-02-28 14:24 | P.PNIM_ITS ---
Assessment and Plan Assessment and Plan (1) Acute and chronic respiratory failure: Qualifiers: Respiratory failure complication: hypoxia Qualified Code(s): J96.21 - Acute and chronic respiratory failure with hypoxia Code(s): J96.20 - Acute and chronic respiratory failure, unspecified whether with hypoxia or hypercapnia Status: Acute Assessment and Plan: At baseline requires 2 L nasal cannula at all times, remains at 2 L nasal cannula with appropriate O2 saturations. Placed on BiPAP in ER for increased work of breathing. * ABG: PH 7.557, pCO2 23.8, PO2 91.3, HC03 20.7, O2 content 11.6, O2 saturation 98% -no hypoxemia * Likely multifactorial, CHF exacerbation, HAP, asthma exacerbation? * Lasix 40mg bid * Antibiotic therapy for pneumonia * Does not require BiPAP at this time * Maintain baseline O2 supplementation * Duonebz q6H and Albuterol q2H prn * At baseline O2 requirement - 92% on 2L NC * Pulmonary consult (2) Pneumonia: Code(s): J18.9 - Pneumonia, unspecified organism Status: Acute Assessment and Plan: * CXR: Persistent interstitial and mild airspace opacities in both lungs, left greater than right, which is most likely related to chronic initial lung disease with differential including recurrent mild pulmonary edema or pneumonia * Risk Factors: Recent hospitalization 1-1/2 weeks prior to this admission * CT Chest showed bilateral pneumonitis * started on HAP tx: Cefepime and DOxycycline * no supplemental O2 requirement * supportive treatment * trend labs * Monitor vital signs, I&Os, neuro status and patient is a fall risk * Follow WBC, serum electrolytes, temperature curves and cultures * Send sputum cultures (3) Acute hyponatremia: Code(s): E87.1 - Hypo-osmolality and hyponatremia Status: Acute Assessment and Plan: * Upon admission: Na 117 * Longstanding history of hyponatremia with sodium levels in the high 120s/low 130s since 2021 * Multifactorial, fluoxetine may be contributory, pantoprazole * Serum osmolality, urine osmolality, cortisol, TSH, SPEP * Nephrology consulted * Fluid restriction * Ensure no rapid over-correction * Asymptomatic, hold on 3% saline * 02/27: Na 128 (4) Acute exacerbation of CHF (congestive heart failure): Qualifiers: Heart failure type: diastolic Qualified Code(s): I50.33 - Acute on chronic diastolic (congestive) heart failure Code(s): I50.9 - Heart failure, unspecified Status: Acute Assessment and Plan: * Symptoms: Shortness of breath, lower extremity swelling * Current medications: Continue IV furosemide * BNP: 7930 * EKG: Atrial flutter/tachycardia * Chest XR: Persistent interstitial and mild airspace opacities in both lungs, left greater than right, which is most likely related to chronic initial lung disease with differential including recurrent mild pulmonary edema or pneumonia. * Echo: 02/13/25: EF 55-60%, severe enlargement left atrial chamber, moderate enlargement right atrial chamber, mild pulmonary hypertension, trace AVR/TVR, mild MVR * Monitor vital signs, I&Os, BUN/creatinine, daily weights, neuro status and patient is a fall risk * Monitor serum electrolytes, Keep serum Potassium>4 and serum Magnesium>2 and CBC * Conineu Lasix IV (5) Atrial fibrillation: Code(s): I48.91 - Unspecified atrial fibrillation Status: Acute Assessment and Plan: * Keep serum potassium >4 and keep magnesium >2 * Consult Cardiology for further management, appreciate assistance and recommendations * Lovenox initiated * Continue Eliquis * Heart rate well-controlled (6) Hypothyroidism: Qualifiers: Hypothyroidism type: acquired Qualified Code(s): E03.9 - Hypothyroidism, unspecified Code(s): E03.9 - Hypothyroidism, unspecified Status: Chronic Assessment and Plan: * Continue Synthroid * Repeat TSH (7) NBA on CPAP: Code(s): G47.33 - Obstructive sleep apnea (adult) (pediatric); Z99.89 - Dependence on other enabling machines and devices Status: Chronic Assessment and Plan: * Continue at-home CPAP (8) Hypertension: Qualifiers: Hypertension type: primary hypertension Qualified Code(s): I10 - Essential (primary) hypertension Code(s): I10 - Essential (primary) hypertension Status: Chronic Assessment and Plan: * Patient's blood pressure was reviewed on 02/25 * Blood pressure remains well controlled * Will continue current medications (9) Depression, major, recurrent, mild: Code(s): F33.0 - Major depressive disorder, recurrent, mild Status: Acute Assessment and Plan: * Continue fluoxetine Plan DVT prophylaxis Sq Lovenox PT/OT eval Subjective Date/time seen: 02/28/25 14:24 Interval history: Comfortable at bedside On 5 liters and 2 liters at baseline Review of Systems Review of Systems: All systems reviewed & are unremarkable except as noted in HPI and below Exam Narrative: Gen -chronically ill appearing female in no acute respiratory distress who is nontoxic-appearing lying semi recumbent in bed HEENT - normocephalic. ?Atraumatic. ?Pupils equal round and reactive. ?Extraocular motions intact. ?Sclera clear and anicteric. ?Nares patent. ?Oropharynx was clear. ?No oral lesions. ?Moist mucous membranes. ?Tongue was midline. ?Palate marjorie symmetrically. ?No facial asymmetry. Neck - neck was supple. ?No dominant adenopathy, thyromegaly or masses. ? Chest - lungs are clear to auscultation bilaterally. ?No wheezes or crackles. CV -abnormal rhythm, irregularly irregular,, normal rate, S1-S2. No murmurs gallops or rubs. Abd - abdomen was soft. ?Nontender. ?Nondistended. ?Positive bowel sounds. ?No organomegaly or masses. Ext -minimal trace lower extremity edema no clubbing, cyanosis. ?2+ DP pulses bilaterally. Neuro - patient is alert and oriented x2. ?Strength is 5/5 in both upper and lower extremities. ?Cranial nerves 2-12 are intact. ?Speech is clear. Psych - normal mood and affect. ?Patient is pleasant and cooperative. Skin - warm and dry. ?No rashes noted. Objective Data Vital Signs Vital Signs: Vital Signs - 24 hr 02/27/25 14:28 02/27/25 15:25 02/27/25 16:00 Temperature 98.3 F Pulse Rate 69 70 70 Respiratory Rate 20 20 22 H Blood Pressure 122/57 L Pulse Oximetry 100 100 Oxygen Delivery Nasal Cannula Oxygen Flow Rate 3 02/27/25 16:00 02/27/25 17:00 02/27/25 18:00 Temperature Pulse Rate 77 66 Respiratory Rate Blood Pressure Pulse Oximetry 90 Oxygen Delivery Nasal Cannula Oxygen Flow Rate 3 02/27/25 19:36 02/27/25 20:00 02/27/25 20:50 Temperature 97.7 F Pulse Rate 58 L 58 L 58 L Respiratory Rate 21 H 21 H Blood Pressure 127/58 L Pulse Oximetry 96 96 Oxygen Delivery High Flow Nasal Cannula Oxygen Flow Rate 7 02/27/25 21:17 02/27/25 21:25 02/27/25 22:00 Temperature Pulse Rate 65 69 65 Respiratory Rate 20 20 Blood Pressure Pulse Oximetry Oxygen Delivery Oxygen Flow Rate 02/28/25 00:00 02/28/25 00:00 02/28/25 00:39 Temperature 98.2 F Pulse Rate 64 64 64 Respiratory Rate 20 20 Blood Pressure 127/63 Pulse Oximetry 99 99 Oxygen Delivery High Flow Nasal Cannula Oxygen Flow Rate 7 02/28/25 00:44 02/28/25 00:53 02/28/25 02:00 Temperature Pulse Rate 64 57 L Respiratory Rate 20 Blood Pressure Pulse Oximetry 96 98 Oxygen Delivery Nasal Cannula High Flow Nasal Cannula Oxygen Flow Rate 5 6 02/28/25 02:38 02/28/25 02:47 02/28/25 03:57 Temperature Pulse Rate 68 58 L 58 L Respiratory Rate 20 20 21 H Blood Pressure Pulse Oximetry 97 Oxygen Delivery High Flow Nasal Cannula Oxygen Flow Rate 6 02/28/25 04:00 02/28/25 04:00 02/28/25 04:30 Temperature 98.6 F Pulse Rate 58 L 67 59 L Respiratory Rate 21 H 20 Blood Pressure 122/107 H Pulse Oximetry 97 97 Oxygen Delivery High Flow Nasal Cannula Oxygen Flow Rate 5 02/28/25 05:17 02/28/25 07:52 02/28/25 08:00 Temperature 98.1 F Pulse Rate 57 L 60 97 Respiratory Rate 18 Blood Pressure 128/63 Pulse Oximetry 95 Oxygen Delivery Oxygen Flow Rate 02/28/25 08:00 02/28/25 08:28 02/28/25 08:30 Temperature Pulse Rate 66 Respiratory Rate 20 Blood Pressure Pulse Oximetry 95 92 Oxygen Delivery High Flow Nasal Cannula Nasal Cannula Oxygen Flow Rate 7 5 02/28/25 08:37 02/28/25 09:15 02/28/25 10:00 Temperature Pulse Rate 64 63 64 Respiratory Rate 20 Blood Pressure Pulse Oximetry Oxygen Delivery Oxygen Flow Rate 02/28/25 12:00 02/28/25 12:00 02/28/25 12:00 Temperature 97.8 F Pulse Rate 63 63 Respiratory Rate 22 H Blood Pressure 127/65 Pulse Oximetry 95 95 Oxygen Delivery High Flow Nasal Cannula Oxygen Flow Rate 5 02/28/25 12:58 02/28/25 13:31 Temperature 97.9 F 98.0 F Pulse Rate 65 65 Respiratory Rate 22 H 22 H Blood Pressure 117/53 L 125/73 Pulse Oximetry 96 94 Oxygen Delivery Oxygen Flow Rate Intake/Output Intake/Output: Intake & Output 02/25/25 02/26/25 02/27/25 02/28/25 23:59 23:59 23:59 23:59 Intake Total 1220 1100 1520 1050 Output Total 0433 874 3731 600 Balance -130 300 120 450 Meds/Results Medications: Active Medications Generic Name Dose Route Start Last Admin Trade Name Freq PRN Reason Stop Dose Admin Acetaminophen 650 mg 02/25/25 02:42 Acetaminophen 325 Mg Tablet PO Q4H PRN Mild Pain (1-3) or Fever Albuterol 2.5 mg 02/25/25 15:24 Albuterol Sulfate Neb 2.5 Mg/3 Ml Inh INHALATION Q6HRT PRN Shortness Of Breath Or Wheezing Albuterol/Ipratropium 3 ml 02/25/25 08:00 02/28/25 08:28 Ipratropium 0.5 Mg/Albuterol Sulfate 2.5 Mg (Base) Ampul.Neb 3 Ml INHALATION 3 ml Q6HRT VIN Administration Amlodipine Besylate 10 mg 02/26/25 09:00 02/28/25 09:15 Amlodipine Besylate 10 Mg Tablet PO 10 mg DAILY VIN Administration Benzonatate 200 mg 02/27/25 22:00 02/28/25 13:21 Benzonatate 100 Mg Capsule PO 200 mg Q8HR VIN Administration Diclofenac Sodium 0 applic 02/25/25 15:24 Diclofenac Sodium 1% 100 Gm Gel (*Bkc) TOPICAL QID PRN JOINT PAIN Docusate Sodium 100 mg 02/25/25 21:00 02/28/25 09:14 Docusate Sodium 100 Mg Capsule PO 100 mg Q12HR VIN Administration Donepezil HCl 5 mg 02/25/25 21:00 02/27/25 21:21 Donepezil Hcl 5 Mg Tablet PO 5 mg QHS VIN Administration Fish Oil 1 gm 02/26/25 09:00 02/28/25 09:15 [place] 3 Polyunsat Fatty Acids 1 Gm Cap PO 1 gm DAILY VIN Administration Fluoxetine HCl 20 mg 02/25/25 22:00 02/28/25 13:20 Fluoxetine Hcl 20 Mg Capsule PO 20 mg Q8HR VIN Administration Folic Acid 1 mg 02/26/25 09:00 02/28/25 09:15 Folic Acid 1 Mg Tablet PO 1 mg DAILY VIN Administration Furosemide 20 mg 02/26/25 09:00 02/28/25 09:15 Furosemide 20 Mg Tablet PO 20 mg DAILY VIN Administration Gabapentin 300 mg 02/25/25 15:35 02/28/25 13:20 Gabapentin 300 Mg Capsule PO 300 mg Q8HR VIN Administration Guaifenesin 1,200 mg 02/25/25 21:00 02/28/25 09:14 Guaifenesin 12 Hr 600 Mg Tabcr PO 1,200 mg Q12HR VIN Administration Cefepime HCl 2 gm/ Sodium 50 mls @ 100 mls/hr 02/25/25 17:00 02/28/25 04:35 Chloride IVPB Infused Q12H VIN Infusion Doxycycline Hyclate 100 mg/ 100 mls @ 100 mls/hr 02/25/25 10:30 02/28/25 09:13 Sodium Chloride IVPB 03/01/25 21:59 100 mls/hr Q12HR VIN Administration Levothyroxine Sodium 150 mcg 02/26/25 06:30 02/28/25 06:24 Levothyroxine Sodium 150 Mcg Tablet PO 150 mcg DAILY@0630 VIN Administration Lidocaine 1 patch 02/26/25 09:00 02/28/25 09:13 Lidocaine 5% Patch TRANSDERM 1 patch DAILY VIN Administration Loratadine 10 mg 02/25/25 15:24 Loratadine 10 Mg Tablet PO DAILY PRN allergy symptoms Lorazepam 2 mg 02/26/25 23:03 02/27/25 21:24 Lorazepam (*Crx) 1 Mg Tablet PO 2 mg Q4H PRN Administration Anxiety Methylprednisolone Sodium Succinate 20 mg 02/27/25 21:00 02/28/25 09:14 Methylprednisolone Sod Succ 40 Mg Vial IV PUSH 20 mg Q12HR VIN Administration Miscellaneous Information 1 each 02/26/25 00:01 02/28/25 00:42 Naloxone Nasal [place] Is Nonform; Ok To Hold This Until Pt Discharged? XX 03/28/25 00:00 Not Given [facility] Miscellaneous Information 1 each 02/26/25 00:01 02/28/25 00:41 Gemtesa Is Nonform; Can Pt Use From Home? XX 03/28/25 00:00 Not Given [facility] Montelukast Sodium 10 mg 02/26/25 09:00 02/28/25 09:14 Montelukast Sodium 10 Mg Tablet PO 10 mg DAILY VIN Administration Nebivolol 10 mg 02/26/25 09:00 02/28/25 09:15 Nebivolol Hcl 5 Mg Tablet PO 10 mg DAILY VIN Administration Non-Formulary Medication 4 mg 02/25/25 15:24 Naloxone NASAL Q2-3M PRN opioid overdose Non-Formulary Medication 75 mg 02/26/25 09:00 Vibegron [Gemtesa] PO 03/28/25 08:59 DAILY VIN Ondansetron HCl 4 mg 02/25/25 02:42 Ondansetron Inj 4 Mg/2 Ml Vial IV PUSH Q4H PRN Nausea Pantoprazole Sodium 40 mg 02/25/25 21:00 02/28/25 09:15 Pantoprazole 40 Mg Tablet PO 40 mg Q12HR VIN Administration Pravastatin Sodium 40 mg 02/26/25 09:00 02/28/25 09:15 Pravastatin Sodium 20 Mg Tablet PO 40 mg DAILY VIN Administration Sodium Chloride 500 mg 02/28/25 09:00 02/28/25 09:23 Sodium Chloride 500 Mg Tablet PO 500 mg QAM VIN Administration Spironolactone 25 mg 02/26/25 09:00 02/28/25 09:15 Spironolactone 25 Mg Tablet PO 25 mg DAILY VIN Administration Telmisartan 40 mg 02/25/25 21:00 02/28/25 09:14 Telmisartan 40 Mg Tablet PO 40 mg Q12HR VIN Administration Vitamin D 50 mcg 02/26/25 09:00 02/28/25 09:15 Cholecalciferol (Vitamin D3) 25 Mcg (1,000 Units) Tablet PO 50 mcg DAILY VIN Administration Radiology Results: ITS Impressions Chest X-Ray 02/25/25 11:03 IMPRESSION: 1. Persistent interstitial and mild airspace opacities in both lungs, left greater than right, which is most likely related to chronic initial lung disease with differential including recurrent mild pulmonary edema or pneumonia. Modified Barium Swallow 02/27/25 12:16 IMPRESSION: Laryngeal penetration without aspiration. Please correlate with speech pathologist findings and specific feeding recommendations. Chest CTA 02/27/25 13:55 IMPRESSION: 1. No PE. 2. Acute scattered bilateral pneumonitis. Labs Labs: Laboratory Results - last 24 hr 02/25/25 02/25/25 02/28/25 15:24 21:29 03:51 WBC 11.4 H RBC 2.10 L Hgb 6.5 L* Hct 20.4 L* MCV 97.1 MCH 31.0 MCHC 31.9 L RDW 14.8 H Plt Count 125 L MPV 11.5 H Immature Gran % (Auto) 2.1 H Neut % (Auto) 89.1 H Lymph % (Auto) 3.5 L [place] % (Auto) 5.1 Eos % (Auto) 0.1 Baso % (Auto) 0.1 L Lymph # (Auto) 0.40 L [place] # (Auto) 0.6 Eos # (Auto) 0.0 Baso # (Auto) 0.0 Abs Immat Gran (auto) 0.24 H Absolute Neuts (auto) 10.2 H Absolute Nucleated RBC 0.000 Band Neutrophils % Not Reportable Nucleated RBC % 0.0 Platelet Estimate Decreased % Immature Plt Fraction 7.7 Hypochromasia 1+ Poikilocytosis 1+ Anisocytosis 1+ Microcytosis 1+ Ovalocytes 1+ Acanthocytes (Spur) Occasional Schistocytes Rare Sodium 128 L Potassium 4.8 Chloride 98 Carbon Dioxide 23 Anion Gap 7 BUN 19 H Creatinine 0.89 Estim Creat Clear Calc 50 Estimated GFR > 60 Glucose 131 H Serum Osmolality 259 L Calcium 9.6 Total Bilirubin 0.9 AST 23 ALT 24 Alkaline Phosphatase 72 Total Protein 6.3 Albumin 3.7 Urine Osmolality 242 Blood Type Antibody Screen Crossmatch 02/28/25 05:56 WBC RBC Hgb Hct MCV MCH MCHC RDW Plt Count MPV Immature Gran % (Auto) Neut % (Auto) Lymph % (Auto) Island % (Auto) Eos % (Auto) Baso % (Auto) Lymph # (Auto) [place] # (Auto) Eos # (Auto) Baso # (Auto) Abs Immat Gran (auto) Absolute Neuts (auto) Absolute Nucleated RBC Band Neutrophils % Nucleated RBC % Platelet Estimate % Immature Plt Fraction Hypochromasia Poikilocytosis Anisocytosis Microcytosis Ovalocytes Acanthocytes (Spur) Schistocytes Sodium Potassium Chloride Carbon Dioxide Anion Gap BUN Creatinine Estim Creat Clear Calc Estimated GFR Glucose Serum Osmolality Calcium Total Bilirubin AST ALT Alkaline Phosphatase Total Protein Albumin Urine Osmolality Blood Type B Negative Antibody Screen Negative Crossmatch See Detail Quality VTE Prophylaxis VTE prophylaxis: pharmacologic ordered
[2025-02-28 17:58] LABS: Hematocrit 23.3 % (37.0-47.0); Hemoglobin 7.8 g/dL (12.0-15.0)
[2025-02-28] MEDS: DONEPEZIL HCL 5 MG TABLET PO (20:58)
[2025-03-01] VITALS (26 sets, daily range): BP systolic 125–140; BP diastolic 53–66; PULSE 55–67; RESP 16–26; TEMP 36.8–37.3; O2SAT 91–98
[2025-03-01] MEDS: IPRATROPIUM 0.5 MG/ALBUTEROL SULFATE 2.5 MG (BASE) AMPUL.NEB 3 ML INHALATION ×4 (02:42→20:03)
[2025-03-01 04:16] LABS: Hematocrit 22.5 % (37.0-47.0); Hemoglobin 7.4 g/dL (12.0-15.0); Immature Granulocyte Percent A 2.0 % (0-0.5); Immature Platelet Fraction Pct 7.6 % (0.9-11.2); Lymphocytes Absolute Auto 1.44 K/mm3 (0.9-3.2); Mean Corpuscular HGB Conc 32.9 g/dl (32-36); Mean Corpuscular Hemoglobin 31.2 pg (26-34); Mean Corpuscular Volume 94.9 fl (80-100); Nucleated Red Blood Cells Absolute Auto 0.000 K/mm3 (0.0-0.012); Nucleated Red Blood Cells Perc 0.0 % (0.0-0.2); Platelet Count Result 124 k/mm3 (150-375); Red Blood Count 2.37 M/mm3 (4.2-5.4); White Blood Count 13.2 K/mm3 (4.5-10.0)
[2025-03-01 04:34] LABS: Alanine Aminotransferase 22 U/L (6-35); Albumin Level 3.5 g/dL (3.5-5.1); Alkaline Phosphatase 69 U/L (38-126); Anion Gap 5 mmol/L (4-12); Aspartate Amino Transferase 24 U/L (14-36); Bilirubin,Total 1.4 mg/dL (0.2-1.3); Blood Urea Nitrogen 20 mg/dL (7-17); Calcium 9.9 mg/dL (8.4-10.2); Carbon Dioxide 26 mmol/L (22-30); Chloride 98 mmol/L (98-107); Estimated CRCL calculation 58 ml/min; Estimated Glomerular Filt Rate > 60; Glucose 90 mg/dL (65-110); Magnesium 1.4 mg/dL (1.6-2.3); Potassium 3.7 mmol/L (3.4-5.0); Sodium 129 mmol/L (137-145); Total Protein 6.1 g/dL (6.3-8.2)
[2025-03-01 04:56] LABS: Ovalocytes 1+; Poikilocytosis 1+; Schistocytes None Seen
[2025-03-01] MEDS: GABAPENTIN 300 MG CAPSULE PO (05:29)
[2025-03-01] MEDS: BENZONATATE 100 MG CAPSULE 200 MG PO ×3 (05:30→22:48)
[2025-03-01] MEDS: CEFEPIME 2 GM in SODIUM CHLORIDE 0.9% IV 50 ML 100 ML IVPB ×2 (05:30→17:32)
[2025-03-01] MEDS: LEVOTHYROXINE SODIUM 150 MCG TABLET PO (05:57)
[2025-03-01 07:33] LABS: CRP 1.4 mg/dL (<1.0)
[2025-03-01 07:39] LABS: NT Pro B Type Natriuretic Pept 9910 pg/mL (19.9-100)
--- NOTE | 2025-03-01 08:02 | PC.NURSE ---
Dr Bland as well as Dr Cruz made aware of possible aspiration event.
--- NOTE | 2025-03-01 08:31 | PCOTNOTE ---
Per RN, Patient having a rough morning. Having some increased difficulty with breathing, come back this afternoon.
[2025-03-01 08:39] LABS: Free T4 Free Thyroxine 1.14 ng/dL (0.78-2.19)
--- NOTE | 2025-03-01 09:10 | PM.PNPUL ---
Progress Note: A&P Assessment and Plan (1) Asthma with exacerbation: Code(s): J45.901 - Unspecified asthma with (acute) exacerbation Status: Acute Assessment and Plan: Patient carries a long history of asthma with no evidence of fixed obstruction on her PFTs. She presents now with worsening shortness of breath, cough, phlegm production and wheezing in the emergency department. Recently discharged from the hospital on 02/16 following treatment for asthma exacerbation where she completed 5 days of steroids and was discharged on tripod 200, montelukast 10, rescue albuterol, guaifenesin 1200 p.r.n., oxygen 2 L at rest and 2 L with activity and CPAP 13 with 5 L bleed in. 02/27/25: no wheezes on exam. She has increased oxygen requirements. After talking to the her symptoms that he noticed were increased heart rate variability, increasing edema, 15 kg weight gain since discharged on 02/16/2025, I am not convinced this is an asthma exacerbation. She now has altered mental status. Plan: I will obtain an ABG to assess for hypercarbic respiratory failure. I will decrease the Solu-Medrol from 40 mg q.12 hours to 20 mg q.12. She has hemoptysis and I will discontinue aspirin and Eliquis at this time. She has a prominent dry hacking cough and I will place her on standing benzonatate 200 mg p.o. t.i.d. Continue her home dose of continue guaifenesin, montelukast, and Claritin. inpatient pulmonary consult services will resume on 03/01/2025. Call with questions. Later in the day patient had a ABG on 6 L nasal cannula with pH of 7.36/43/70. Later in the day modified barium swallow: Recommend 1. Regular diet / Level 7 2. Moderately thick liquid / Level 3 3. Upright with meals 4. Small bites and drinks 5. No Straw 6. Chin-tuck posture with swallows. 7. Speech services to address laryngeal elevation and use of compensatory techniques. 02/28/2025: Patient remained on Lasix 20 mg p.o. q.day. Remained on 5 L nasal cannula with saturations 95%. 03/01/2025: Patient does not answer questions coherently. She knows her name, [facility], does not know the year or the president. She perseverates. She is afebrile. White blood cell count 13.2, creatinine 0.79. CRP has improved from 2.7 on 02/27/2025 to 1.4 today. BNP has worsened from 8710 on 02/27/2025 to 9910 today. procalcitonin is unchanged from 0.1 on 02/27/2025 to 0.1 today. Free T4 is 1.14. Yesterday she was -960 mL. Cumulative she is -2.07 L since admission. Her weight today is 102.4 kg. Chest x-ray today with continued bilateral interstitial alveolar infiltrates. Plan: Patient has no wheezing today. Her last dose of Solu-Medrol 20 mg was on 02/28 at 9:14 AM. She continues on DuoNebs q.6 hours, guaifenesin 1200 p.o. b.i.d., Tessalon Perles 200 t.i.d.. She is on cefepime day 5 and doxycycline day 5 for possible pneumonia. will continue treatment and re-evaluate on 03/04/2025. procalcitonin is unchanged from 0.1 on 02/27/2025 to 0.1 today. Per bedside nurse patient was feeding herself and began having a coughing paroxysm requiring higher oxygen up to 9 L. She had continued coughing with presumed aspiration. This event occurred prior to her chest x-ray. Patient does not remember coughing or choking. As above she should be on moderately thick liquids but was not. Have talked to nurse and patient will be placed on moderately thick liquids and will have nursing staff monitor patient's with her medicines and all meals today. Inpatient pulmonary consult services will resume on 03/04/2025, call with questions. Discussed with over the phone. Discussed with Dr. Cruz. Will follow with you. (2) Interstitial lung disease: Code(s): J84.9 - Interstitial pulmonary disease, unspecified Status: Chronic Assessment and Plan: Patient with chronic interstitial lung disease which was first seen on CT scan of the chest 10/02/[address] pattern indeterminant for UIP and given a clinical diagnosis of fibrotic NSIP. most recent PFTs on 03/18/2023 with a mild restrictive abnormality with an FEV1 of 1.68 L, total lung capacity 3.06 L, 59% and moderately decreased DLCO that remained mildly decreased when corrected for alveolar volume. Compared to PFTs on 12/08/2021 there has been a significant decrease in the FEV1, total lung capacity with no significant change in the DLCO. Chronic hypoxemic respiratory failure requiring 2 L oxygen at rest, with activity and bleed in with her CPAP of 13 for her NBA. Serologies: 11/18/2021 anti CCP peptide less than 16. Anca screen negative. Demetra 1 antibody negative, SSA antibody negative, SSB antibody negative, SPA CONSULTANT antibody negative, Scl 70 scleroderma antibody negative. 05/13/2022: Rheumatoid factor less than 14. ABRAM positive 1-80, homogeneous nuclear. In pulmonary clinic on 08/11/2023: Stable, clinically and by recent HRCT 02/15/24. We planned on repeating PFTs but patient had to reschedule. We've agreed to hold off on PFTs for now since her symptoms are stable. Discussed the purpose of getting PFTs would be to determine if ILD has progressed and if so, offer a referral to [facility] ILD clinic which she's not too interested in, so we'll hold off on testing for now unless her symptoms change. 02/14/2024: Later in the patient had a CT angiogram of the chest and compared to 02/14/2024. There was negative for PE. Patient had interstitial lung disease with no change in her right upper lobe mild peripheral reticulations and improved ground-glass infiltrates. The right lower lobe demonstrated improved ground-glass infiltrates and no change in her dependent reticulations and bronchiectasis. The right middle lobe was spared in both examinations. There were improved ground-glass infiltrates in the left upper lobe with no change in her diffuse reticulations in the left upper lobe, lingula and left lower lobe. My opinion this is CT pattern indeterminant for UIP and could be consistent with fibrotic NSIP. 02/13/25: Serologies: Rheumatoid factor less than 12, negative.? Anti CCP 8, negative.? ABRAM screen positive 1:160, with negative anti DNA double-stranded, SPA CONSULTANT, Mcdermott, Mcdermott SPA CONSULTANT, anti scleroderma 70, anti SSA, anti SSB, anti chromatin antibodies, anti Ribosomal P Ab, anti Demetra 1, and anticentromere B antibody.? Hypersensitivity pneumonitis panel negative.? Anca screen with negative anti MPO antibody.? Negative anti PR3 antibody.? Negative cytoplasmic C ANCA.? Negative perinuclear ANCA.? Atypical p-ANCA is positive 160.? Myositis panel pending. 02/27/25: patient with worsening oxygenation, hemoptysis. Patient gained 15 kg since she was discharged from the hospital on 02/16/2025. BNP increased from 7930 on 02/25/2025 to 8710 today. Weight today is 95.3 kg with an admission weight of 104.2 kg. Yesterday she is positive 300 mL. Cumulative she -290 mL. Plan: I will obtain a CT angiogram of the chest. I have discontinued apixaban 5 q.12 hours, last dose 02/27 at 09:56. I have discontinued aspirin 81 q.a.m, last dose 02/27/ at 9:56. Regarding additional issues patient is being diuresed per Cardiology and hospitalist teams. She is getting CT angiogram of the chest today so agree with no IV Lasix today. Will reassess tomorrow. Patient is being treated for possible pneumonia with vancomycin given once on 02/25/2025 And MRSA swab on 02/25/2025 was negative, cefepime and doxycycline since 02/25/2025. Will continue for now. initial COVID, influenza, RSV RT PCR assay negative. I will repeat to ensure that this was a true positive. Will send respiratory pathogen panel, urine for Legionella antigen, urine for pneumococcal antigen and serum mycoplasma IgM. Later in the day patient had a CT angiogram of the chest: No PE, worsening patchy ground-glass infiltrates in all lobes compared with CT scan on 02/15/2025 and 02/13/2025. 02/28/2025: Patient remained on Lasix 20 mg p.o. q.day. Remained on 5 L nasal cannula with saturations 95%. 03/01/2025: When I entered the room patient was on 6 L nasal cannula saturation 93%. I decreased her to 4 L at her saturations decreased to 89% over the next 6 minutes. I placed her back on 6 L nasal cannula. Improved hemoptysis. When I prompted her to cough up phlegm she cough it up for expectorations, 3 were clear and 1 was clear with blood streaks. CRP has improved from 2.7 on 02/27/2025 to 1.4 today. BNP has worsened from 8710 on 02/27/2025 to 9910 today. procalcitonin is unchanged from 0.1 on 02/27/2025 to 0.1 today. Free T4 is 1.14. Yesterday she was -960 mL. Cumulative she is -2.07 L since admission. Her weight today is 102.4 kg. Chest x-ray today with continued bilateral interstitial alveolar infiltrates. Plan: I am still concerned about fluid overload and agree with the more aggressive diuresis. She has been started on Lasix 40 IV b.i.d. today. Will follow her with this treatment and off of steroids for the next 72 hours to determine if she responds to more aggressive diuresis and completing treatment for possible bacterial pneumonia. Blood culture x2 negative at 48 hours. In house COVID, influenza, RSV RT PCR assay negative on 02/25/2025 and 02/27/2025. Respiratory pathogen panel, urine Legionella antigen, urine pneumococcal antigen, serum mycoplasma IgM all pending. If she does not respond to more aggressive diuresis and completion of treatment for bacterial pneumonia or deteriorates will consider treating her for interstitial lung disease exacerbation with higher doses of systemic steroids. (3) NBA on CPAP: Code(s): G47.33 - Obstructive sleep apnea (adult) (pediatric); Z99.89 - Dependence on other enabling machines and devices Status: Chronic Assessment and Plan: NBA: She is on CPAP 13 EPR 2 with 2L/min bleed in. This is a ResMed AirSense 11 from [employer]. Download 05/11/24 - 08/08/24 shows CPAP used nightly for avg usage 8h3m per night. Overall AHI is 7.8. (This is an improvement from AHI 13.5 on CPAP 8cm last visit). Continue CPAP with all episodes of sleep. Patient benefits from CPAP use. Follow up in about 6 months, or sooner as needed. Patient encouraged to contact the office with any questions or concerns in the interim. On the night of 02/12/2025 Patient required BiPAP rate of 4 pressures 02/09 inspiratory time 1.0 and a rise of 3. She said that this did help her work of breathing. 02/13/2025: patient is on CPAP 13 with 2 L bleed in. Plan: I will attempt to 10 a download from [employer]. [place] I will place the patient on CPAP 13 with 2 L bleed in and perform an overnight oximetry. If she has increased work of breathing and cannot tolerate her CPAP will continue BiPAP with settings as above. 02/14/25: Patient wear her home CPAP 13 with 2 L bleed in and said that she slept better last night. Patient had an overnight oximetry with recording duration of 6 hours and 40 minutes. Average saturation 92%. Low saturation 82%. Time with saturation less than or equal to 88% was 65 minutes. Oxygen desaturation index 11.5. Download from 01/14/2025 through 02/12/2025 through [employer] [facility]. Patient is on CPAP 13 with an EPR level of 2. Usage days greater than or equal to 4 hours is 93%. Average usage on days used is 7 hours and 52 minutes. AHI 3.4. Apnea index 2.1, hypopnea index 1.3. Median leak 0.1. Ninety-fifth percentile leak 3.8. Maximum leak 10. I interpret this download as very good compliance, adequate pressures and low leak. 02/15/2025: Patient wore her home noninvasive ventilator with 4 L last night. She denies having issues with the mask or machine. Patient had an overnight oximetry with recording duration of 4 hours and 52 minutes. Average saturation 94%. Low saturation 80%. Time with saturation less than or equal to 88% was 8 minutes. Oxygen desaturation index 16.6. 02/16/25: Patient wore her home CPAP 13 with 5 L bleed Using her over the mouth under the nose mask in and said she did well. overnight oximetry with recording duration 5 hours and 47 minutes. Average saturation 96%. Low saturation 91%. Time with saturation less than or equal to 88% was 0 minutes. Oxygen desaturation index 2.2. 02/27: Patient has been wearing her home machine with 5 L bleed in. Plan: Continue her home CPAP 13 with 5 L bleed in. 03/01/2025: patient tells me she wore her home CPAP 13 with 5 L bleed in. Plan: Continue home CPAP with 5 L bleed in. 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 At baseline patient patient and tell me she can walk 35 ft with a walker. She uses 2 L oxygen at rest with activity and bleed in at night with saturations 98% at rest. Her activity level has not changed over the last 6 months. I saw the patient in pulmonary consultation when she was admitted 02/10/2025 through 02/16/2025:? Patient admitted to [facility] with acute onset SOB and wheezing.? She presented to the ED with respiratory distress, worsening hypoxia with an ABG on 4 L 7.40/38/75, elevated BNP.? Patient was treated for asthma exacerbation, possible pneumonia and fluid overload with Solu-Medrol, bronchodilators, bronchodilators, ceftriaxone, azithromycin, IV Lasix.? Patient had a CT angiogram of the chest on 02/13/2025 and compared to 02/14/2024 there was no PE. Patient had interstitial lung disease with no change in her right upper lobe mild peripheral reticulations and improved ground-glass infiltrates. The right lower lobe demonstrated improved ground-glass infiltrates and no change in her dependent reticulations and bronchiectasis. The right middle lobe was spared in both examinations. There were improved ground-glass infiltrates in the left upper lobe with no change in her diffuse reticulations in the left upper lobe, lingula and left lower lobe. My opinion this is CT pattern indeterminant for UIP and could be consistent with fibrotic NSIP.? Lower extremity Dopplers were negative.? Patient has CT scan of the neck and chest on 02/15/25 that demonstrated no tracheobronchial malacia or soft tissue masses and improvement in her ground-glass infiltrates.? Serologies for autoimmune and connective tissue disease were sent.? ?The patient treated with Lasix and diuresed 6 L.? Her BNP improved from 13,500 to 52403.? Her weight improved from 97.8 kg on 02/10/25 to 89.9 kg on 02/16/25.? She had hypoxia on her overnight oximetry on CPAP 13 on 4 L that corrected on 5 L bleed in.? Home O2 assessment demonstrated she needs 2 L with rest and activity.? Patient was discharged on: Trelegy 200 at 1 puff q.day, Rescue albuterol 2 puffs Q 4 hours p.r.n. shortness of breath or wheezing, Montelukast 10 mg q.day and Guaifenesin 1200 mg p.o. b.i.d. p.r.n. chest congestion. takes notes on his computer and we reviewed these in detail: 02/17 through 02/19 the patient was doing well breathing on 2 L nasal cannula with saturations 95-96%. She was taking 2-3 steps and had no rash use respiratory issues. 02/20/2025 breathing was okay she started to have some confusion and memory issues. 02/21/2025 patient slept very well and had a good day with no memory or breathing issues. 02/22/2025 the patient slept poorly. She woke up at 3:30 a.m. and urinated all over the room. She started with coughing. Throughout the day she had increased cough with mucus that was thick. 02/23/2025 she had her best day since she had been home from the hospital. 02/24/2025 patient's heart rate was increasing intermittently. No breathing issues. 02/25/2025: She had worsening heart rate variability, she did sleep and she had gained 15 lb since discharge and the was worried about congestive heart failure and called EMS. Minimal changes in patient's respiratory status according to the . 02/25/2025 Patient admitted to [facility] with SOB, ABG 7.56/ and the patient was placed on BiPAP in the ER for increased work of breathing.? BNP 7930.? COVID influenza RSV RT PCR assay negative. Chest x-ray with persistent interstitial alveolar infiltrates left greater than right, perihilar infiltrates with no pleural effusions.? Her weight was 104.2 kg with a discharge weight on 02/16/2025 was 89.9 kg.? She was treated for congestive heart failure, hyponatremia, asthma exacerbation, possible pneumonia, fluid overload with IV Lasix, hyponatremia without specific means.? For continue diuresis nephrology recommended salt tablets prior to diuretics.? noticed hemoptysis. On 02/26 the patient was much improved with cefepime, Solu-Medrol, bronchodilators, IV Lasix. Patient was on 5 L nasal cannula. At 2:00 p.m. in the afternoon the patient became confused with no change in her breathing status according to the . Oxygen requirements increased throughout the day from 2 L up to 5 L. Patient wore home noninvasive ventilator with 5 L bleed in. 02/27/2025: Patient apparently aspirated on food. She has worsening mental status. Patient is on 2 L nasal cannula with saturations 96%. She is afebrile. White blood cell count 17.9, creatinine 0.87. BNP 8710. CRP 2.7. Weight today is 95.3 kg with an admission weight of 104.2 kg. Yesterday she is positive 300 mL. Cumulative she -290 mL. While talking to the patient she had 3 expectorations with bright red blood and some mucus. Saturations on 4 L were 95%. Later in the day patient had a CT angiogram of the chest: No PE, worsening patchy ground-glass infiltrates in all lobes compared with CT scan on 02/15 and 02/13/2025. Later in the day modified barium swallow: Recommend 1. Regular diet / Level 7 2. Moderately thick liquid / Level 3 3. Upright with meals 4. Small bites and drinks 5. No Straw 6. Chin-tuck posture with swallows. 7. Speech services to address laryngeal elevation and use of compensatory techniques. 02/28/2025: Patient remained on Lasix 20 mg p.o. q.day. Remained on 5 L nasal cannula with saturations 95%. 03/01/2025: Patient does not answer questions coherently. She knows her name, [facility], does not know the year or the president. She perseverates. When I prompted her to cough up phlegm she cough it up for expectorations, 3 were clear and 1 was clear with blood streaks. She is afebrile. White blood cell count 13.2, creatinine 0.79. CRP has improved from 2.7 on 02/27/2025 to 1.4 today. BNP has worsened from 8710 on 02/27/2025 to 9910 today. procalcitonin is unchanged from 0.1 on 02/27/2025 to 0.1 today. Free T4 is 1.14. Yesterday she was -960 mL. Cumulative she is -2.07 L since admission. Her weight today is 102.4 kg. Chest x-ray today with continued bilateral interstitial alveolar infiltrates. Per bedside nurse patient was feeding herself and began having a coughing paroxysm requiring higher oxygen up to 9 L. She had continued coughing with presumed aspiration. This event occurred prior to her chest x-ray. Patient does not remember coughing or choking. As above she should be on moderately thick liquids but was not. DATA: DATE Pre FVC (% pred) Pre FEV1 (% pred) Post FVC Post FEV1 TLC (% pred) FRC (% pred) RV (% pred) DLCO unadj (% pred) DLCO/VA (% pred) 03/18/23 2.11 (79) 1.68 (83) 2.13 1.73 3.06 (59) 0.88 (29) 0.73 (30) 9.30 (47) 2.68 (65) 09/20/22 2.13 (80) 1.70 (84) 2.14 1.69 3.85 (74) 1.73 (58) 1.55 (64) 9.5 (48) 2.72 (66) 12/08/21 2.78 (103) 2.19 (107) 2.83 2.31 5.12 (98) 3.00 (100) 2.17 (90) 10.5 (53) 2.96 (72) 02/27/25: modified barium swallow Recommend 1. Regular diet / Level 7 2. Moderately thick liquid / Level 3 3. Upright with meals 4. Small bites and drinks 5. No Straw 6. Chin-tuck posture with swallows. 7. Speech services to address laryngeal elevation and use of compensatory techniques. 02/15/25: EXAM/PROCEDURE: CT soft tissue neck chest wo HISTORY: Abnormal PFTs, assess for tracheal abnormality COMPARISON: Chest CT exam from February 132023, and 2024 TECHNIQUE: CT of the neck and chest without contrast FINDINGS: CT: The pharyngeal airway appears within normal limits Extensive atherosclerotic calcification in the carotid arteries right greater than left. Scattered nonpathologic sized lymph nodes. No large mass or drainable fluid collection. Diffuse degenerative changes throughout the bones. No gross acute process seen in the visualized intracranial contents or soft tissues of the neck. Vocal cord areas appear normal. Chest CT: The trachea is somewhat ectatic but there is no significant narrowing to confirm tracheomalacia. Tracheal wall calcification as well as bronchial wall calcification noted. Mild to moderate scattered fibrotic appearing changes. Groundglass opacification is slightly improved compared to the February 13, 2025 exam. Heart is mildly enlarged. Central main pulmonary artery also enlarged with the main pulmonary artery measuring approximately 4.3 cm in diameter. No significant pericardial effusion. Scattered mediastinal lymph nodes, mildly pathologic in size unchanged from the 2023 exam. In the upper abdomen, pneumobilia again noted along with cholecystectomy clips. No acute process seen in the visualized portions of the extrathoracic soft tissues. Degenerative changes throughout the bones. IMPRESSION: 1. No acute process involving the trachea identified; no evidence of tracheobronchomalacia on this exam. There is calcification throughout the tracheal air column and bronchial passages which is chronic and benign. 2. Other findings as above including a large central and main pulmonary arteries suggesting pulmonary arterial hypertension; interstitial lung pattern consistent with fibrosing form of nonspecific interstitial pneumonitis or possible mild UIP. Groundglass opacification could represent alveolar fibrosis versus superimposed acute atypical inflammatory/infectious pneumonitis. 02/15/24: CT Scan of the Chest without Contrast: Clinical Indication: Interstitial lung disease Technique: Contiguous sections were acquired throughout the chest without intravenous contrast. Dose reduction technique was used on this scan by utilizing automated exposure control and iterative reconstruction technique. The dose-length product (DLP) was 331.74 mGy-cm. COMPARISON: 03/18/2023 Findings: Mildly prominent mediastinal lymph nodes are stable from prior exam. No aortic aneurysm. Coronary artery calcification present. There is no evidence of pleural or pericardial effusion. Extensive interstitial thickening the lungs is similar to prior exam, with some increased background groundglass component throughout the lungs. Images through the upper abdomen reveal no abnormalities. There is extensive degenerative spondylosis in the spine. Impression: Stable extensive interstitial disease in the lungs. Mildly increased background groundglass opacity, which could reflect progressing interstitial disease versus other superimposed pathology such as bronchiolitis, asthma, or mild pulmonary edema, versus suboptimal inspiration. 09/20/22 - Home O2 Eval - Patient requires 2L/min O2 with ambulation and none at rest. 09/20/2022: This is a pulmonary function test with pre and post-bronchodilator spirometry, plethysmography and diffusing capacity. The test was performed and results interpreted in accordance with the 2019 and 2005 ATS/ERS Task Force guidelines respectively using the Global Lung Function Initiative-2012 reference equations. Patient demonstrated good effort and cooperation. Reproducibility criteria were met. The quality of the pre bronchodilator spirometry maneuver was Grade A and post bronchodilator spirometry maneuver was Grade A. Findings: Spirometry: The contour the expiratory flow tracing is notched in all pre and post bronchodilator efforts. The contour the inspiratory flow tracing is normal. The pre bronchodilator FVC is 2.13 L, 80% predicted. The pre bronchodilator FEV1 is 1.70 L, 84% predicted. The pre bronchodilator FEV1: FVC ratio is 80%. The post bronchodilator FVC is 2.14 L, representing no change. The post bronchodilator FEV1 is 1.69 L, representing a 1% decrease. The post bronchodilator FEV1: FVC ratio 79%. Plethysmography: The total lung capacity is 3.85 L, 74% predicted. The functional residual capacity is 1.73 L, 58% predicted. The residual volume is 1.55 L, 64% predicted. Diffusing capacity: The diffusing capacity unadjusted for hemoglobin and carboxyhemoglobin is 9.5, 48% predicted. The diffusing capacity adjusted for alveolar volume is 2.72, 66% predicted. Impression: The contour of the expiratory flow tracing demonstrates a reproducible notched pattern. The notched pattern has been described with coughing or tracheobronchomalacia. The contour the inspiratory flow tracing is normal. Otherwise, the spirometry is normal without evidence of an obstructive abnormality. There is a mild restrictive ventilatory abnormality with a normal FEV1. There is no significant improvement after inhaling a single dose of albuterol. The diffusing capacity unadjusted for hemoglobin and carboxyhemoglobin is moderately decreased and remains mildly decreased when adjusted for alveolar volume. There are no prior studies for comparison 09/20/2022: EXAMINATION: CT chest high resolution wo co DATE: 10/02/2021 12:18 INDICATION: Interstitial lung disease TECHNIQUE: Computed tomography (CT) of the chest was performed without intravenous contrast. The dose-length product was 517.08 mGy-cm. Automated exposure control and iterative reconstruction technique were employed. COMPARISON: Chest x-ray dated 08/18/2021 FINDINGS: There is mild mediastinal lymphadenopathy. AP window lymph node measuring 1 cm short axis. There is mild atherosclerosis of the aorta and coronary arteries. Borderline heart size. No significant pleural or pericardial effusion. Small hiatal hernia. Status post cholecystectomy with pneumobilia. There is a combination of peripheral interstitial lung disease with interlobular septal thickening and groundglass opacities. There is mild lower lobe bronchiectasis bilaterally. No pneumothorax. No endobronchial lesions. Mild emphysema. There is severe thoracic spondylosis with S-shaped scoliosis. No acute osseous abnormality. There are a few small nodules in both lungs measuring 2 mm or less, likely benign. IMPRESSION: 1. Coarse interstitial lung disease, likely chronic, in a pattern consistent with usual interstitial pneumonia (UIP). 2: Mild emphysema. 3: Mild mediastinal lymphadenopathy, likely reactive. 07/13/22: Echo Summary 1. Complete two-dimensional, color flow and Doppler transthoracic echocardiogram is performed. 2. Left ventricular chamber dimension is normal. 3. Left ventricular systolic function is hyperdynamic, estimated at >70%. 4. The left ventricular diastolic function is grade I diastolic dysfunction. 5. E/e' 9 is minimally elevated. 6. Left atrial chamber dimension is moderately enlarged. 7. There is mild aortic valve sclerosis. 8. No pulmonary hypertension, estimated pulmonary arterial systolic pressure is 24 mmHg. Right Ventricle Right ventricular systolic function is normal and with normal TAPSE 3.2 cm. Right ventricular chamber dimension is normal. Left Atria Left atrial chamber dimension is moderately enlarged. Right Atria Right atrial chamber dimension is normal. 02/15/22 - Split PSG - Mild sleep apnea with AHI 8.1 and desaturation to 78%. CPAP 8cmH2O EPR 1 and 2L/min supplemental O2 was recommended. 12/08/21 - PFT - Spirometry is normal without evidence of obstructive abnormality. 12/08/21 - 6mw on home requirement 2L/min - The patient's resting 2 L nasal canula oxygen saturation measured by pulse oximetry was 98% and heart rate was 66 bpm. Patient ambulated for 61 meters and oxygen saturation remained 93 to 98%. Heart rate at the end of the study was 85 bpm. Of note, during the recovery phase the patient desaturated to a abdelrahman of 85% at 6 minutes and 32 seconds. Patient saturations increased and were 91% at 7 minutes and 8 seconds. 12/08/21 - Echo - LV systolic function normal, EF 55-60%. Grade I diastolic dysfunction. Moderate LA enlargement. Trace mitral valve regurgitation. 10/02/21 - EXAMINATION: CT chest high resolution wo co DATE: 10/02/2021 12:18 INDICATION: Interstitial lung disease TECHNIQUE: Computed tomography (CT) of the chest was performed without intravenous contrast. The dose-length product was 517.08 mGy-cm. Automated exposure control and iterative reconstruction technique were employed. COMPARISON: Chest x-ray dated 08/18/2021 FINDINGS: There is mild mediastinal lymphadenopathy. AP window lymph node measuring 1 cm short axis. There is mild atherosclerosis of the aorta and coronary arteries. Borderline heart size. No significant pleural or pericardial effusion. Small hiatal hernia. Status post cholecystectomy with pneumobilia. There is a combination of peripheral interstitial lung disease with interlobular septal thickening and groundglass opacities. There is mild lower lobe bronchiectasis bilaterally. No pneumothorax. No endobronchial lesions. Mild emphysema. There is severe thoracic spondylosis with S-shaped scoliosis. No acute osseous abnormality. There are a few small nodules in both lungs measuring 2 mm or less, likely benign. IMPRESSION: 1. Coarse interstitial lung disease, likely chronic, in a pattern consistent with usual interstitial pneumonia (UIP). 2: Mild emphysema. 3: Mild mediastinal lymphadenopathy, likely reactive. Review of Systems Constitutional: Constitutional: Reports no additional constitutional complaints Eyes: Eyes: Reports no additional eye complaints ENT: Reports system reviewed and no additional complaints, except as documented Cardiovascular: Cardiovascular: Reports no additional cardiovascular complaints Respiratory: Respiratory: Reports no additional respiratory complaints Gastrointestinal: Gastrointestinal: Reports no additional gastrointestinal complaints Musculoskeletal: Musculoskeletal: Reports no additional musculoskeletal complaints Neurologic: Reports system reviewed and no additional complaints, except as documented Psychiatric: Psychiatric: Reports no additional psychiatric complaints Endocrine: Endocrine: Reports no additional endocrine complaints Hematologic/Lymphatic: Hematologic/Lymphatic: Reports no additional hematologic/lymphatic complaints Allergic/Immunologic: Allergic/Immunologic: Reports no additional allergic/immunologic complaints Exam Const: General: cooperative, comfortable and no acute distress Orientation/consciousness: oriented to person and oriented to place HENMT: Head: normal to inspection Ears: hearing grossly normal bilaterally Eyes: General: appearance normal, both eyes and all related structures Neck: Neck: normal visual inspection Chest: Chest palpation & inspection: normal inspection of the chest Resp: Effort & Inspection: normal respiratory effort and able to speak in complete sentences Auscultation: crackles, no rales, no rhonchi, no wheezes and lung sounds not diminished Other: Bibasilar dry inspiratory crackles left greater than right. No wheezing. Cardio: Jugular venous distension: no JVD GI: Inspection: normal to inspection Skin: General skin exam: normal color Neuro: General: oriented to person, oriented to place and oriented to time Extrem: General: normal to inspection Other: worsening edema than prior admission Psych: Appearance: grossly normal Objective Data Vital Signs Vital Signs: Vital Signs - 24 hr 02/28/25 09:15 02/28/25 10:00 02/28/25 12:00 Temperature Pulse Rate 63 64 63 Respiratory Rate Blood Pressure Pulse Oximetry Oxygen Delivery Oxygen Flow Rate 02/28/25 12:00 02/28/25 12:00 02/28/25 12:58 Temperature 36.6 C 36.6 C Pulse Rate 63 65 Respiratory Rate 22 H 22 H Blood Pressure 127/65 117/53 L Pulse Oximetry 95 95 96 Oxygen Delivery High Flow Nasal Cannula Oxygen Flow Rate 5 02/28/25 13:31 02/28/25 14:00 02/28/25 14:27 Temperature 36.7 C 36.5 C Pulse Rate 65 65 65 Respiratory Rate 22 H 22 H Blood Pressure 125/73 129/56 L Pulse Oximetry 94 97 Oxygen Delivery Oxygen Flow Rate 02/28/25 14:31 02/28/25 14:44 02/28/25 14:49 Temperature 36.5 C Pulse Rate 65 68 63 Respiratory Rate 22 H 20 20 Blood Pressure 129/56 L Pulse Oximetry 97 Oxygen Delivery Oxygen Flow Rate 02/28/25 15:30 02/28/25 15:31 02/28/25 16:00 Temperature 36.8 C 36.8 C Pulse Rate 69 69 68 Respiratory Rate 20 22 H Blood Pressure 134/61 134/61 Pulse Oximetry 94 94 Oxygen Delivery Oxygen Flow Rate 02/28/25 16:00 02/28/25 16:57 02/28/25 18:00 Temperature 36.4 C L Pulse Rate 67 66 Respiratory Rate 22 H Blood Pressure 132/63 Pulse Oximetry 95 95 Oxygen Delivery High Flow Nasal Cannula Oxygen Flow Rate 5 02/28/25 20:00 02/28/25 20:00 02/28/25 20:25 Temperature 36.6 C Pulse Rate 66 64 65 Respiratory Rate 20 20 Blood Pressure 135/56 L Pulse Oximetry 95 93 Oxygen Delivery High Flow Nasal Cannula Oxygen Flow Rate 5 02/28/25 20:25 02/28/25 20:40 02/28/25 22:00 Temperature Pulse Rate 65 68 66 Respiratory Rate 20 20 Blood Pressure Pulse Oximetry Oxygen Delivery Oxygen Flow Rate 02/28/25 22:50 02/28/25 23:59 03/01/25 00:00 Temperature 36.9 C Pulse Rate 64 58 L 58 L Respiratory Rate 20 Blood Pressure 128/56 L Pulse Oximetry 91 91 Oxygen Delivery CPAP Oxygen Flow Rate 03/01/25 02:00 03/01/25 02:42 03/01/25 02:42 Temperature Pulse Rate 60 59 L 59 L Respiratory Rate 20 Blood Pressure Pulse Oximetry 92 92 Oxygen Delivery CPAP CPAP Oxygen Flow Rate 5 03/01/25 02:42 03/01/25 02:55 03/01/25 04:00 Temperature Pulse Rate 59 L 65 59 L Respiratory Rate 20 24 H Blood Pressure Pulse Oximetry Oxygen Delivery Oxygen Flow Rate 03/01/25 04:00 03/01/25 06:00 03/01/25 07:50 Temperature 36.9 C Pulse Rate 60 65 64 Respiratory Rate 20 22 H Blood Pressure 130/53 L Pulse Oximetry 92 96 Oxygen Delivery High Flow Nasal Cannula Oxygen Flow Rate 9 03/01/25 07:50 03/01/25 07:52 03/01/25 07:55 Temperature Pulse Rate 64 66 66 Respiratory Rate 22 H 16 20 Blood Pressure Pulse Oximetry 91 Oxygen Delivery Nasal Cannula Oxygen Flow Rate 6 03/01/25 08:00 Temperature 37.0 C Pulse Rate 64 Respiratory Rate 26 H Blood Pressure 140/63 Pulse Oximetry 95 Oxygen Delivery Oxygen Flow Rate Intake/Output Intake/Output: Intake & Output 02/26/25 02/27/25 02/28/25 03/01/25 23:59 23:59 23:59 23:59 Intake Total 1100 1520 2040 Output Total 800 1400 3000 1400 Balance 300 120 -960 -1400 Meds/Results Medications: Active Medications Generic Name Dose Route Start Last Admin Trade Name Freq PRN Reason Stop Dose Admin Acetaminophen 650 mg 02/25/25 02:42 Acetaminophen 325 Mg Tablet PO Q4H PRN Mild Pain (1-3) or Fever Albuterol 2.5 mg 02/25/25 15:24 Albuterol Sulfate Neb 2.5 Mg/3 Ml Inh INHALATION Q6HRT PRN Shortness Of Breath Or Wheezing Albuterol/Ipratropium 3 ml 02/25/25 08:00 03/01/25 07:49 Ipratropium 0.5 Mg/Albuterol Sulfate 2.5 Mg (Base) Ampul.Neb 3 Ml INHALATION 3 ml Q6HRT VIN Administration Amlodipine Besylate 10 mg 02/26/25 09:00 02/28/25 09:15 Amlodipine Besylate 10 Mg Tablet PO 10 mg DAILY VIN Administration Benzonatate 200 mg 02/27/25 22:00 03/01/25 05:30 Benzonatate 100 Mg Capsule PO 200 mg Q8HR VIN Administration Diclofenac Sodium 0 applic 02/25/25 15:24 Diclofenac Sodium 1% 100 Gm Gel (*Bkc) TOPICAL QID PRN JOINT PAIN Docusate Sodium 100 mg 02/25/25 21:00 02/28/25 20:59 Docusate Sodium 100 Mg Capsule PO 100 mg Q12HR VIN Administration Donepezil HCl 5 mg 02/25/25 21:00 02/28/25 20:58 Donepezil Hcl 5 Mg Tablet PO 5 mg QHS VIN Administration Enoxaparin Sodium 40 mg 03/01/25 09:00 Enoxaparin 40 Mg/0.4 Ml Syringe SUB-Q DAILY [facility] Fish Oil 1 gm 02/26/25 09:00 02/28/25 09:15 Mesick 3 Polyunsat Fatty Acids 1 Gm Cap PO 1 gm DAILY VIN Administration Fluoxetine HCl 20 mg 02/25/25 22:00 03/01/25 05:38 Fluoxetine Hcl 20 Mg Capsule PO 20 mg Q8HR VIN Administration Folic Acid 1 mg 02/26/25 09:00 02/28/25 09:15 Folic Acid 1 Mg Tablet PO 1 mg DAILY VIN Administration Furosemide 40 mg 03/01/25 09:00 Furosemide Inj 40 Mg/4 Ml Vial IV PUSH BID [facility] Gabapentin 300 mg 02/25/25 15:35 03/01/25 05:29 Gabapentin 300 Mg Capsule PO 300 mg Q8HR VIN Administration Guaifenesin 1,200 mg 02/25/25 21:00 02/28/25 20:59 Guaifenesin 12 Hr 600 Mg Tabcr PO 1,200 mg Q12HR VIN Administration Cefepime HCl 2 gm/ Sodium 50 mls @ 100 mls/hr 02/25/25 17:00 03/01/25 05:30 Chloride IVPB 100 mls/hr Q12H VIN Administration Doxycycline Hyclate 100 mg/ 100 mls @ 100 mls/hr 02/25/25 10:30 02/28/25 20:58 Sodium Chloride IVPB 03/01/25 21:59 100 mls/hr Q12HR VIN Administration Levothyroxine Sodium 150 mcg 02/26/25 06:30 03/01/25 05:57 Levothyroxine Sodium 150 Mcg Tablet PO 150 mcg DAILY@0630 VIN Administration Lidocaine 1 patch 02/26/25 09:00 02/28/25 09:13 Lidocaine 5% Patch TRANSDERM 1 patch DAILY VIN Administration Loratadine 10 mg 02/25/25 15:24 Loratadine 10 Mg Tablet PO DAILY PRN allergy symptoms Lorazepam 2 mg 02/26/25 23:03 02/27/25 21:24 Lorazepam (*Crx) 1 Mg Tablet PO 2 mg Q4H PRN Administration Anxiety Miscellaneous Information 1 each 02/26/25 00:01 02/28/25 00:42 Naloxone Nasal [place] Is Nonform; Ok To Hold This Until Pt Discharged? XX 03/28/25 00:00 Not Given CLARIFY [facility] Miscellaneous Information 1 each 02/26/25 00:01 02/28/25 00:41 Gemtesa Is Nonform; Can Pt Use From Home? XX 03/28/25 00:00 Not Given CLARIFY VIN Montelukast Sodium 10 mg 02/26/25 09:00 02/28/25 09:14 Montelukast Sodium 10 Mg Tablet PO 10 mg DAILY VIN Administration Nebivolol 10 mg 02/26/25 09:00 02/28/25 09:15 Nebivolol Hcl 5 Mg Tablet PO 10 mg DAILY VIN Administration Non-Formulary Medication 4 mg 02/25/25 15:24 Naloxone NASAL Q2-3M PRN opioid overdose Non-Formulary Medication 75 mg 02/26/25 09:00 Vibegron [Gemtesa] PO 03/28/25 08:59 DAILY VIN Ondansetron HCl 4 mg 02/25/25 02:42 Ondansetron Inj 4 Mg/2 Ml Vial IV PUSH Q4H PRN Nausea Pantoprazole Sodium 40 mg 02/25/25 21:00 02/28/25 20:59 Pantoprazole 40 Mg Tablet PO 40 mg Q12HR VIN Administration Pravastatin Sodium 40 mg 02/26/25 09:00 02/28/25 09:15 Pravastatin Sodium 20 Mg Tablet PO 40 mg DAILY VIN Administration Sodium Chloride 500 mg 02/28/25 09:00 02/28/25 09:23 Sodium Chloride 500 Mg Tablet PO 500 mg QAM VIN Administration Spironolactone 25 mg 02/26/25 09:00 02/28/25 09:15 Spironolactone 25 Mg Tablet PO 25 mg DAILY VIN Administration Telmisartan 40 mg 02/25/25 21:00 02/28/25 20:59 Telmisartan 40 Mg Tablet PO 40 mg Q12HR VIN Administration Vitamin D 50 mcg 02/26/25 09:00 02/28/25 09:15 Cholecalciferol (Vitamin D3) 25 Mcg (1,000 Units) Tablet PO 50 mcg DAILY VIN Administration Radiology Results: ITS Impressions Modified Barium Swallow 02/27/25 12:16 IMPRESSION: Laryngeal penetration without aspiration. Please correlate with speech pathologist findings and specific feeding recommendations. Chest CTA 02/27/25 13:55 IMPRESSION: 1. No PE. 2. Acute scattered bilateral pneumonitis. Chest X-Ray 03/01/25 08:10 IMPRESSION: 1. Unchanged scattered bilateral airspace opacities which could represent pneumonia or pulmonary edema. 2. Cardiomegaly. Labs Labs: Laboratory Results - last 24 hr 02/28/25 02/28/25 03/01/25 05:56 17:52 03:51 WBC 13.2 H RBC 2.37 L Hgb 7.8 L 7.4 L Hct 23.3 L 22.5 L MCV 94.9 MCH 31.2 MCHC 32.9 RDW 14.6 H Plt Count 124 L MPV 11.5 H Immature Gran % (Auto) 2.0 H Neut % (Auto) 68.3 Lymph % (Auto) 10.9 L Bibb % (Auto) 18.5 H Eos % (Auto) 0.1 Baso % (Auto) 0.2 Lymph # (Auto) 1.44 Bibb # (Auto) 2.5 H Eos # (Auto) 0.0 Baso # (Auto) 0.0 Abs Immat Gran (auto) 0.26 H Absolute Neuts (auto) 9.1 H Absolute Nucleated RBC 0.000 Band Neutrophils % Not Reportable Nucleated RBC % 0.0 Platelet Estimate Decreased % Immature Plt Fraction 7.6 Poikilocytosis 1+ Ovalocytes 1+ Schistocytes None seen Sodium 129 L Potassium 3.7 Chloride 98 Carbon Dioxide 26 Anion Gap 5 BUN 20 H Creatinine 0.79 Estim Creat Clear Calc 58 Estimated GFR > 60 Glucose 90 Calcium 9.9 Magnesium 1.4 L Total Bilirubin 1.4 H AST 24 ALT 22 Alkaline Phosphatase 69 C-Reactive Protein 1.4 H NT-Pro-B Natriuret Pep 9910 H Total Protein 6.1 L Albumin 3.5 Free T4 1.14 Blood Type B Negative Antibody Screen Negative Crossmatch See Detail
[2025-03-01 09:29] LABS: Procalcitonin 0.1 ng/mL; Thyroid Stimulating Hormone 1.310 uIU/mL (0.465-4.680)
[2025-03-01] MEDS: ENOXAPARIN 40 MG/0.4 ML SYRINGE SUB-Q (09:30)
[2025-03-01] MEDS: FOLIC ACID 1 MG TABLET PO (09:31)
[2025-03-01] MEDS: CHOLECALCIFEROL (VITAMIN D3) 25 MCG (1,000 UNITS) TABLET 50 MCG PO (09:31)
[2025-03-01] MEDS: guaiFENesin 12 HR 600 MG TABCR 1200 MG PO ×2 (09:31→20:34)
[2025-03-01] MEDS: SPIRONOLACTONE 25 MG TABLET PO (09:31)
[2025-03-01] MEDS: NEBIVOLOL HCL 5 MG TABLET 10 MG PO (09:32)
[2025-03-01] MEDS: TELMISARTAN 40 MG TABLET PO ×2 (09:32→20:34)
[2025-03-01] MEDS: MONTELUKAST SODIUM 10 MG TABLET PO (09:32)
[2025-03-01] MEDS: SODIUM CHLORIDE 500 MG TABLET PO (09:33)
[2025-03-01] MEDS: PANTOPRAZOLE 40 MG TABLET PO ×2 (09:33→20:34)
[2025-03-01] MEDS: PRAVASTATIN SODIUM 20 MG TABLET 40 MG PO (09:33)
[2025-03-01] MEDS: DOCUSATE SODIUM 100 MG CAPSULE PO ×2 (09:34→20:34)
[2025-03-01] MEDS: DOXYCYCLINE IV 100 MG in SODIUM CHLORIDE 0.9% IV 100 ML IVPB ×2 (09:34→20:34)
[2025-03-01] MEDS: FUROSEMIDE INJ 40 MG/4 ML VIAL IV PUSH ×2 (09:34→17:33)
[2025-03-01] MEDS: LIDOCAINE 5% PATCH 1 PATCH TRANSDERM (09:34)
--- NOTE | 2025-03-01 09:35 | PCPTNOTE ---
Attempted to see patient for PT, however RN advised not to see patient at this time and asked to check back later. Patient unable to be seen at this time.
--- NOTE | 2025-03-01 13:21 | P.PNIM_ITS ---
Assessment and Plan Assessment and Plan (1) Acute and chronic respiratory failure: Qualifiers: Respiratory failure complication: hypoxia Qualified Code(s): J96.21 - Acute and chronic respiratory failure with hypoxia Code(s): J96.20 - Acute and chronic respiratory failure, unspecified whether with hypoxia or hypercapnia Status: Acute Assessment and Plan: At baseline requires 2 L nasal cannula at all times, remains at 2 L nasal cannula with appropriate O2 saturations. Placed on BiPAP in ER for increased work of breathing. * ABG: PH 7.557, pCO2 23.8, PO2 91.3, HC03 20.7, O2 content 11.6, O2 saturation 98% -no hypoxemia * Likely multifactorial, CHF exacerbation, HAP, asthma exacerbation? * Lasix 40mg bid * Antibiotic therapy for pneumonia * Does not require BiPAP at this time * Maintain baseline O2 supplementation * Duonebz q6H and Albuterol q2H prn * At oxygen 6 liters * Pulmonary following (2) Pneumonia: Code(s): J18.9 - Pneumonia, unspecified organism Status: Acute Assessment and Plan: * CXR: Persistent interstitial and mild airspace opacities in both lungs, left greater than right, which is most likely related to chronic initial lung disease with differential including recurrent mild pulmonary edema or pneumonia * Risk Factors: Recent hospitalization 1-1/2 weeks prior to this admission * CT Chest showed bilateral pneumonitis * Day 5 Cefepime and Doxycycline * trend labs * Discussed with Dr Bland and he recommended continuing abx through the weekend (3) Acute hyponatremia: Code(s): E87.1 - Hypo-osmolality and hyponatremia Status: Acute Assessment and Plan: * Upon admission: Na 117 * Longstanding history of hyponatremia with sodium levels in the high 120s/low 130s since 2021 * Multifactorial, fluoxetine may be contributory, pantoprazole * 02/27: Na 129 (4) Acute exacerbation of CHF (congestive heart failure): Qualifiers: Heart failure type: diastolic Qualified Code(s): I50.33 - Acute on chronic diastolic (congestive) heart failure Code(s): I50.9 - Heart failure, unspecified Status: Acute Assessment and Plan: * Symptoms: Shortness of breath, lower extremity swelling * Current medications: Continue IV furosemide * BNP: 7930 * EKG: Atrial flutter/tachycardia * Chest XR: Persistent interstitial and mild airspace opacities in both lungs, left greater than right, which is most likely related to chronic initial lung disease with differential including recurrent mild pulmonary edema or pneumonia. * Echo: 02/13/25: EF 55-60%, severe enlargement left atrial chamber, moderate enlargement right atrial chamber, mild pulmonary hypertension, trace AVR/TVR, mild MVR * Monitor vital signs, I&Os, BUN/creatinine, daily weights, neuro status and patient is a fall risk * Monitor serum electrolytes, Keep serum Potassium>4 and serum Magnesium>2 and CBC * Continue Lasix IV (5) Atrial fibrillation: Code(s): I48.91 - Unspecified atrial fibrillation Status: Acute Assessment and Plan: * Keep serum potassium >4 and keep magnesium >2 * Consult Cardiology for further management, appreciate assistance and recommendations * Lovenox initiated * Continue Eliquis * Heart rate well-controlled (6) Hypothyroidism: Qualifiers: Hypothyroidism type: acquired Qualified Code(s): E03.9 - Hypothyroidism, unspecified Code(s): E03.9 - Hypothyroidism, unspecified Status: Chronic Assessment and Plan: * Continue Synthroid * Repeat TSH (7) NBA on CPAP: Code(s): G47.33 - Obstructive sleep apnea (adult) (pediatric); Z99.89 - Dependence on other enabling machines and devices Status: Chronic Assessment and Plan: * Continue at-home CPAP (8) Hypertension: Qualifiers: Hypertension type: primary hypertension Qualified Code(s): I10 - Essential (primary) hypertension Code(s): I10 - Essential (primary) hypertension Status: Chronic Assessment and Plan: * Patient's blood pressure was reviewed on 02/25 * Blood pressure remains well controlled * Will continue current medications (9) Depression, major, recurrent, mild: Code(s): F33.0 - Major depressive disorder, recurrent, mild Status: Acute Assessment and Plan: * Continue fluoxetine Plan DVT prophylaxis Sq Lovenox PT/OT eval Subjective Date/time seen: 03/01/25 13:21 Interval history: Comfortable at bedside Hb 6.5 today receiving 1 unit pRBC, GI consulted for possible endoscopy Review of Systems Review of Systems: All systems reviewed & are unremarkable except as noted in HPI and below Exam Narrative: Gen -chronically ill appearing female in no acute respiratory distress who is nontoxic-appearing lying semi recumbent in bed HEENT - normocephalic. ?Atraumatic. ?Pupils equal round and reactive. ?Extraocular motions intact. ?Sclera clear and anicteric. ?Nares patent. ?Oropharynx was clear. ?No oral lesions. ?Moist mucous membranes. ?Tongue was midline. ?Palate marjorie symmetrically. ?No facial asymmetry. Neck - neck was supple. ?No dominant adenopathy, thyromegaly or masses. ? Chest - lungs are clear to auscultation bilaterally. ?No wheezes or crackles. CV -abnormal rhythm, irregularly irregular,, normal rate, S1-S2. No murmurs gallops or rubs. Abd - abdomen was soft. ?Nontender. ?Nondistended. ?Positive bowel sounds. ?No organomegaly or masses. Ext -minimal trace lower extremity edema no clubbing, cyanosis. ?2+ DP pulses bilaterally. Neuro - patient is alert and oriented x2. ?Strength is 5/5 in both upper and lower extremities. ?Cranial nerves 2-12 are intact. ?Speech is clear. Psych - normal mood and affect. ?Patient is pleasant and cooperative. Skin - warm and dry. ?No rashes noted. Objective Data Vital Signs Vital Signs: Vital Signs - 24 hr 02/28/25 13:31 02/28/25 14:00 02/28/25 14:27 Temperature 98.0 F 97.7 F Pulse Rate 65 65 65 Respiratory Rate 22 H 22 H Blood Pressure 125/73 129/56 L Pulse Oximetry 94 97 Oxygen Delivery Oxygen Flow Rate 02/28/25 14:31 02/28/25 14:44 02/28/25 14:49 Temperature 97.7 F Pulse Rate 65 68 63 Respiratory Rate 22 H 20 20 Blood Pressure 129/56 L Pulse Oximetry 97 Oxygen Delivery Oxygen Flow Rate 02/28/25 15:30 02/28/25 15:31 02/28/25 16:00 Temperature 98.2 F 98.2 F Pulse Rate 69 69 68 Respiratory Rate 20 22 H Blood Pressure 134/61 134/61 Pulse Oximetry 94 94 Oxygen Delivery Oxygen Flow Rate 02/28/25 16:00 02/28/25 16:57 02/28/25 18:00 Temperature 97.5 F L Pulse Rate 67 66 Respiratory Rate 22 H Blood Pressure 132/63 Pulse Oximetry 95 95 Oxygen Delivery High Flow Nasal Cannula Oxygen Flow Rate 5 02/28/25 20:00 02/28/25 20:00 02/28/25 20:25 Temperature 97.9 F Pulse Rate 66 64 65 Respiratory Rate 20 20 Blood Pressure 135/56 L Pulse Oximetry 95 93 Oxygen Delivery High Flow Nasal Cannula Oxygen Flow Rate 5 02/28/25 20:25 02/28/25 20:40 02/28/25 22:00 Temperature Pulse Rate 65 68 66 Respiratory Rate 20 20 Blood Pressure Pulse Oximetry Oxygen Delivery Oxygen Flow Rate 02/28/25 22:50 02/28/25 23:59 03/01/25 00:00 Temperature 98.5 F Pulse Rate 64 58 L 58 L Respiratory Rate 20 Blood Pressure 128/56 L Pulse Oximetry 91 91 Oxygen Delivery CPAP Oxygen Flow Rate 03/01/25 02:00 03/01/25 02:42 03/01/25 02:42 Temperature Pulse Rate 60 59 L 59 L Respiratory Rate 20 Blood Pressure Pulse Oximetry 92 92 Oxygen Delivery CPAP CPAP Oxygen Flow Rate 5 03/01/25 02:42 03/01/25 02:55 03/01/25 04:00 Temperature Pulse Rate 59 L 65 59 L Respiratory Rate 20 24 H Blood Pressure Pulse Oximetry Oxygen Delivery Oxygen Flow Rate 03/01/25 04:00 03/01/25 06:00 03/01/25 07:50 Temperature 98.4 F Pulse Rate 60 65 64 Respiratory Rate 20 22 H Blood Pressure 130/53 L Pulse Oximetry 92 96 Oxygen Delivery High Flow Nasal Cannula Oxygen Flow Rate 9 03/01/25 07:50 03/01/25 07:52 03/01/25 07:55 Temperature Pulse Rate 64 66 66 Respiratory Rate 22 H 16 20 Blood Pressure Pulse Oximetry 91 Oxygen Delivery Nasal Cannula Oxygen Flow Rate 6 03/01/25 08:00 03/01/25 09:32 03/01/25 11:45 Temperature 98.6 F 98.2 F Pulse Rate 64 60 62 Respiratory Rate 26 H 24 H Blood Pressure 140/63 130/66 Pulse Oximetry 95 93 Oxygen Delivery Oxygen Flow Rate Intake/Output Intake/Output: Intake & Output 02/26/25 02/27/25 02/28/25 03/01/25 23:59 23:59 23:59 23:59 Intake Total 1100 1520 2140 240 Output Total 800 1400 3000 3500 Balance 300 120 -460 -5710 Meds/Results Medications: Active Medications Generic Name Dose Route Start Last Admin Trade Name Freq PRN Reason Stop Dose Admin Acetaminophen 650 mg 02/25/25 02:42 Acetaminophen 325 Mg Tablet PO Q4H PRN Mild Pain (1-3) or Fever Albuterol 2.5 mg 02/25/25 15:24 Albuterol Sulfate Neb 2.5 Mg/3 Ml Inh INHALATION Q6HRT PRN Shortness Of Breath Or Wheezing Albuterol/Ipratropium 3 ml 02/25/25 08:00 03/01/25 07:49 Ipratropium 0.5 Mg/Albuterol Sulfate 2.5 Mg (Base) Ampul.Neb 3 Ml INHALATION 3 ml Q6HRT VIN Administration Amlodipine Besylate 10 mg 02/26/25 09:00 03/01/25 09:33 Amlodipine Besylate 10 Mg Tablet PO 10 mg DAILY VIN Administration Benzonatate 200 mg 02/27/25 22:00 03/01/25 05:30 Benzonatate 100 Mg Capsule PO 200 mg Q8HR VIN Administration Diclofenac Sodium 0 applic 02/25/25 15:24 Diclofenac Sodium 1% 100 Gm Gel (*Bkc) TOPICAL QID PRN JOINT PAIN Docusate Sodium 100 mg 02/25/25 21:00 03/01/25 09:34 Docusate Sodium 100 Mg Capsule PO 100 mg Q12HR IVN Administration Donepezil HCl 5 mg 02/25/25 21:00 02/28/25 20:58 Donepezil Hcl 5 Mg Tablet PO 5 mg QHS VIN Administration Enoxaparin Sodium 40 mg 03/01/25 09:00 03/01/25 09:30 Enoxaparin 40 Mg/0.4 Ml Syringe SUB-Q 40 mg DAILY VIN Administration Fish Oil 1 gm 02/26/25 09:00 03/01/25 09:52 [place] 3 Polyunsat Fatty Acids 1 Gm Cap PO Not Given DAILY VIN Fluoxetine HCl 20 mg 02/25/25 22:00 03/01/25 05:38 Fluoxetine Hcl 20 Mg Capsule PO 20 mg Q8HR VIN Administration Folic Acid 1 mg 02/26/25 09:00 03/01/25 09:31 Folic Acid 1 Mg Tablet PO 1 mg DAILY VIN Administration Furosemide 40 mg 03/01/25 09:00 03/01/25 09:34 Furosemide Inj 40 Mg/4 Ml Vial IV PUSH 40 mg BID VIN Administration Gabapentin 300 mg 02/25/25 15:35 03/01/25 05:29 Gabapentin 300 Mg Capsule PO 300 mg Q8HR VIN Administration Guaifenesin 1,200 mg 02/25/25 21:00 03/01/25 09:31 Guaifenesin 12 Hr 600 Mg Tabcr PO 1,200 mg Q12HR VIN Administration Cefepime HCl 2 gm/ Sodium 50 mls @ 100 mls/hr 02/25/25 17:00 03/01/25 05:30 Chloride IVPB 100 mls/hr Q12H VIN Administration Doxycycline Hyclate 100 mg/ 100 mls @ 100 mls/hr 02/25/25 10:30 03/01/25 09:34 Sodium Chloride IVPB 03/01/25 21:59 100 mls/hr Q12HR VIN Administration Levothyroxine Sodium 150 mcg 02/26/25 06:30 03/01/25 05:57 Levothyroxine Sodium 150 Mcg Tablet PO 150 mcg DAILY@0630 VIN Administration Lidocaine 1 patch 02/26/25 09:00 03/01/25 09:34 Lidocaine 5% Patch TRANSDERM 1 patch DAILY VIN Administration Loratadine 10 mg 02/25/25 15:24 Loratadine 10 Mg Tablet PO DAILY PRN allergy symptoms Lorazepam 2 mg 02/26/25 23:03 02/27/25 21:24 Lorazepam (*Crx) 1 Mg Tablet PO 2 mg Q4H PRN Administration Anxiety Miscellaneous Information 1 each 02/26/25 00:01 02/28/25 00:42 Naloxone Nasal [place] Is Nonform; Ok To Hold This Until Pt Discharged? XX 03/28/25 00:00 Not Given CLARIFY VIN Miscellaneous Information 1 each 02/26/25 00:01 02/28/25 00:41 Gemtesa Is Nonform; Can Pt Use From Home? XX 03/28/25 00:00 Not Given CLARIFY VIN Montelukast Sodium 10 mg 02/26/25 09:00 03/01/25 09:32 Montelukast Sodium 10 Mg Tablet PO 10 mg DAILY VIN Administration Nebivolol 10 mg 02/26/25 09:00 03/01/25 09:32 Nebivolol Hcl 5 Mg Tablet PO 10 mg DAILY VIN Administration Non-Formulary Medication 4 mg 02/25/25 15:24 Naloxone NASAL Q2-3M PRN opioid overdose Non-Formulary Medication 75 mg 02/26/25 09:00 Vibegron [Gemtesa] PO 03/28/25 08:59 DAILY VIN Ondansetron HCl 4 mg 02/25/25 02:42 Ondansetron Inj 4 Mg/2 Ml Vial IV PUSH Q4H PRN Nausea Pantoprazole Sodium 40 mg 02/25/25 21:00 03/01/25 09:33 Pantoprazole 40 Mg Tablet PO 40 mg Q12HR VIN Administration Pravastatin Sodium 40 mg 02/26/25 09:00 03/01/25 09:33 Pravastatin Sodium 20 Mg Tablet PO 40 mg DAILY VIN Administration Sodium Chloride 500 mg 02/28/25 09:00 03/01/25 09:33 Sodium Chloride 500 Mg Tablet PO 500 mg QAM VIN Administration Spironolactone 25 mg 02/26/25 09:00 03/01/25 09:31 Spironolactone 25 Mg Tablet PO 25 mg DAILY VIN Administration Telmisartan 40 mg 02/25/25 21:00 03/01/25 09:32 Telmisartan 40 Mg Tablet PO 40 mg Q12HR VIN Administration Vitamin D 50 mcg 02/26/25 09:00 03/01/25 09:31 Cholecalciferol (Vitamin D3) 25 Mcg (1,000 Units) Tablet PO 50 mcg DAILY VIN Administration Radiology Results: ITS Impressions Modified Barium Swallow 02/27/25 12:16 IMPRESSION: Laryngeal penetration without aspiration. Please correlate with speech pathologist findings and specific feeding recommendations. Chest CTA 02/27/25 13:55 IMPRESSION: 1. No PE. 2. Acute scattered bilateral pneumonitis. Chest X-Ray 03/01/25 08:10 IMPRESSION: 1. Unchanged scattered bilateral airspace opacities which could represent pneumonia or pulmonary edema. 2. Cardiomegaly. Labs Labs: Laboratory Results - last 24 hr 02/28/25 02/28/25 02/28/25 03:51 05:56 17:52 WBC RBC Hgb 7.8 L Hct 23.3 L MCV MCH MCHC RDW Plt Count MPV Immature Gran % (Auto) Neut % (Auto) Lymph % (Auto) Holmes % (Auto) Eos % (Auto) Baso % (Auto) Lymph # (Auto) Holmes # (Auto) Eos # (Auto) Baso # (Auto) Abs Immat Gran (auto) Absolute Neuts (auto) Absolute Nucleated RBC Band Neutrophils % Nucleated RBC % Platelet Estimate % Immature Plt Fraction Poikilocytosis Ovalocytes Schistocytes Sodium Potassium Chloride Carbon Dioxide Anion Gap BUN Creatinine Estim Creat Clear Calc Estimated GFR Glucose Calcium Magnesium Total Bilirubin AST ALT Alkaline Phosphatase C-Reactive Protein NT-Pro-B Natriuret Pep Total Protein Albumin Procalcitonin TSH Free T4 M.pneumoniae IgM Titer <770 Crossmatch See Detail 03/01/25 03:51 WBC 13.2 H RBC 2.37 L Hgb 7.4 L Hct 22.5 L MCV 94.9 MCH 31.2 MCHC 32.9 RDW 14.6 H Plt Count 124 L MPV 11.5 H Immature Gran % (Auto) 2.0 H Neut % (Auto) 68.3 Lymph % (Auto) 10.9 L Holmes % (Auto) 18.5 H Eos % (Auto) 0.1 Baso % (Auto) 0.2 Lymph # (Auto) 1.44 Holmes # (Auto) 2.5 H Eos # (Auto) 0.0 Baso # (Auto) 0.0 Abs Immat Gran (auto) 0.26 H Absolute Neuts (auto) 9.1 H Absolute Nucleated RBC 0.000 Band Neutrophils % Not Reportable Nucleated RBC % 0.0 Platelet Estimate Decreased % Immature Plt Fraction 7.6 Poikilocytosis 1+ Ovalocytes 1+ Schistocytes None seen Sodium 129 L Potassium 3.7 Chloride 98 Carbon Dioxide 26 Anion Gap 5 BUN 20 H Creatinine 0.79 Estim Creat Clear Calc 58 Estimated GFR > 60 Glucose 90 Calcium 9.9 Magnesium 1.4 L Total Bilirubin 1.4 H AST 24 ALT 22 Alkaline Phosphatase 69 C-Reactive Protein 1.4 H NT-Pro-B Natriuret Pep 9910 H Total Protein 6.1 L Albumin 3.5 Procalcitonin 0.1 TSH 1.310 Free T4 1.14 M.pneumoniae IgM Titer Crossmatch Quality VTE Prophylaxis VTE prophylaxis: pharmacologic ordered
--- NOTE | 2025-03-01 15:01 | PCOTNOTE ---
Patient declined, states she had PT earlier, is comfortable in the chair and having difficulty with breathing today. Patient declining any more activity today.
--- NOTE | 2025-03-01 18:46 | WPDGICN ---
Assessment and Plan Assessment and plan (1) GI bleed: Qualifiers: GI bleed type/associated pathology: anorectal hemorrhage Qualified Code(s): K62.5 - Hemorrhage of anus and rectum Code(s): K92.2 - Gastrointestinal hemorrhage, unspecified Status: Acute (2) Hematochezia: Code(s): K92.1 - Melena Status: Acute (3) Anemia of chronic disease: Code(s): D63.8 - Anemia in other chronic diseases classified elsewhere Status: Acute (4) Chronic hyponatremia: Code(s): E87.1 - Hypo-osmolality and hyponatremia Status: Acute Plan 1. GI bleed/hematochezia/AOCD: Patient's states that she was having a large amount of bright red blood per rectum for > 3 days prior to admission after discontinuing anticoagulants bleeding stop. No signs of active GI bleeding at this time. Patient with chronic anemia dating back to March of 2021. Yesterday hemoglobin dropped to 6.5 and patient received 1 unit of PRBCs. Labs today show WBC is 13, HGB 7.4, HCT 23, MCV 95, platelets 124. Given acute heart and respiratory issues the patient poor candidate for endoscopy, agrees. Will continue to monitor H&H and hold off on any endoscopic evaluation at this time unless she is having active GI bleeding or H&H does not stabilize 2. Dysphagia: Patient admits to dysphagia to solids, liquids and pills. Modified barium swallow performed 1224 showed laryngeal penetration without aspiration. Continue feeding and diet instructions provided by speech therapy 3. Chronic hyponatremia: On admission sodium was at 117 and today sodium at 129. No current GI symptoms that would explain hyponatremia. Primary care team to continue monitoring and correct Thank you very much for allowing me to share in the care of this very nice patient. This report may have been done utilizing a voice recognition system. Attempts have been made to correct errors. However, there may be uncorrected grammatical, spelling, and recognition errors present. GI Consult Note Consult date/time: 03/01/25 18:46 Reason for consult: GI bleed HPI: Marialuisa Darden is a 79 year old female with past medical surgical history of chronic anemia, depression, anxiety, NBA on CPAP, dementia, history of ARDS, diastolic dysfunction, Genevieve's thyroiditis, history of rectocele, hysterectomy, tubal ligation, history of cardiac catheterization, HTN, fibromyalgia and CHF. She presented to the emergency room on February 25 for shortness of breath and cough. Patient was accompanied by her Yandel throughout the entire visit. Most medical surgical history was provided by the as patient was unable to provide reliable answers. Prior to admission the patient had a large amount bright red blood per rectum. No active GI bleeding since admission. states that prior to admission she had been coughing up blood for > 3 days, anticoagulation discontinued in hemoptysis. Denies any abdominal pain, nausea, vomiting, odynophagia. She complains of dysphagia with solids, liquids and pills. Denies reflux, early satiety, unexplained weight loss, appetite loss. Patient was unable to provide history of recent bowel habits but does deny any melena. She is a social drinker and quit smoking in 1981. Denies any marijuana use. Family history includes mother diagnosed with esophageal cancer in her mid 50s. Prior to admission patient was on aspirin 81 mg and Eliquis daily. ENDOSCOPY HISTORY: EGD: [ ] Findings: [ ] Bx results: [ ] COLONOSCOPY: [ ] Findings: [ ] Bx results: [ ] LABS AND STOOL STUDIES: Labs 03/01/2025: WBC 13, Hgb 7.4, Hct 23, MCV 95, platelets 124 Sodium 129, potassium 3.7, BUN 20, creatinine 0.79, GFR >60, calcium 9.9, magnesium 1.4 Total bilirubin 1.4, AST 24, ALT 22, Alkaline Phos 69, albumin 3.5 Procalcitonin 0.1, TSH 1.310, T4 1.14 Labs 02/25/2025: WBC 11, Hgb 7.3, Hct 22, MCV 92, platelets 146 Sodium 119, potassium 4.4, BUN 17, creatinine 0.93, GFR 58, calcium 9.3 IMAGING: CT chest 02/27/2025: IMPRESSION: 1. No PE. 2. Acute scattered bilateral pneumonitis. Modified barium swallow 02/27/2025: IMPRESSION: Laryngeal penetration without aspiration. Please correlate with speech pathologist findings and specific feeding recommendations. Recommend 1. Regular diet / Level 7 2. Moderately thick liquid / Level 3 3. Upright with meals 4. Small bites and drinks 5. No Straw 6. Chin-tuck posture with swallows. 7. Speech services to address laryngeal elevation and use of compensatory techniques. Review of Systems Review of Systems: ROS unobtainable: Yes unobtainable due to mental status Constitutional: Constitutional: Reports as per HPI ENT: Reports as per HPI Cardiovascular: Cardiovascular: Reports as per HPI, Denies chest pain and Reports dyspnea Respiratory: Respiratory: Reports cough and Reports dyspnea Gastrointestinal: Gastrointestinal: Reports as per HPI Musculoskeletal: Musculoskeletal: Reports as per HPI Integumentary/Breasts: Skin/Breast: Reports as per HPI Psychiatric: Psychiatric: Reports as per HPI Endocrine: Endocrine: Reports no additional endocrine complaints Hematologic/Lymphatic: Hematologic/Lymphatic: Reports no additional hematologic/lymphatic complaints [facility] Past Medical History Medical History Femur fracture, right Surgical screws Fracture, foot Right Metatarsal Anemia Undifferentiated connective tissue disease Depression with anxiety NBA on CPAP Dementia History of ARDS Diastolic dysfunction History of nuclear stress test History of abnormal electrocardiogram Genevieve's thyroiditis Rosacea w/ ocular involvement Depression History of rectocele History of migraine headaches Spondylosis of cervical spine Arthralgia H/O antinuclear antibodies intermittent +ABRAM to 1:320 Vascular disorder seronegative collagen disorder History of squamous cell carcinoma History of staph infection Chronic left shoulder pain arthritis; possibly inflammatory Fracture, rib Aftercare following finger joint replacement surgery Thyroiditis Scoliosis History of left heart catheterization Tubal ligation evaluation Enlarged ureter Supplemental oxygen dependent Hypertension Fibromyalgia CHF (congestive heart failure) Surgical History Surgical History History of cataract extraction with lens replacement History of arthroplasty of knee Left History of removal of pigmented skin lesion Nose 2021 History of hysterectomy Total History of ERCP History of fusion of lumbar spine L2-L5 lumbar fusion Titanium History of laminectomy History of total knee replacement History of cholecystectomy 2002 History of tubal ligation History of D&C History of hip surgery right Total knee replacement status Previous back surgery S/P peroneal tendon repair History of surgical removal of ganglion cyst 1960 H/O hernia repair 1947 Family History Family History Unknown No problems noted. Mother Esophageal cancer Other Alcohol abuse Cancer Hypertension Social History Social History Social History: She lives with her and has 3 biologic children. She also has 1 adopted child. 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 She is a former smoker. Code status full code Smoking packs per day: 1 Smoking cigarettes per day: 20.0 Years smoked: 10 Smoking pack-years: 10.00 Smoking status: Former smoker Tobacco type: cigarettes Second hand tobacco smoke exposure: No Smoking end date: 11/23/81 Additional smoking assessment comments: quit 1981 Alcohol intake: current Drinks per week: 1 Alcohol use details: 0-1 per week Substance use: never Substance use type: does not use Other substance usage details: social occassions Lack of Transportation: No Lack of Food: Never True Current Housing: I Have Housing Concerned About Future Housing: No Difficulty Paying Gas/Electric Bills: No Difficulty Paying for Meds: No Currently Unemployed: No Education: Decline to Answer Difficulty w/ Childcare or Family Care: No Living arrangements: with family Additional living arrangements comments: [facility]. Occupation/Education: retired Gender identity (if verbalized by the patient): Female Spiritual care concerns: No Agree to blood products: Yes Meds Home Medications and Allergies Home Medications ?Medication ?Instructions ?Recorded ?Confirmed ?Type docusate sodium 100 mg capsule 100 mg PO BID 11/18/21 02/25/25 History diclofenac sodium 1 % topical gel 4 g topical QID PRN Pain 05/13/22 02/25/25 History (Arthritis Pain (diclofenac)) telmisartan 40 mg tablet 40 mg PO BID 05/13/22 02/25/25 History spironolactone 25 mg tablet 25 mg PO DAILY 06/15/22 02/25/25 History albuterol sulfate 2.5 mg/3 mL 2.5 mg inhalation Q6-8H PRN 12/28/22 02/25/25 History (0.083 %) solution for nebulization shortness of breath or wheezing naloxone 4 mg/actuation nasal spray 4 mg intranasal Q2-3M PRN opioid 03/22/23 02/25/25 Rx overdose #2 ea fluticasone fur. 200 mcg-umeclid 1 inh inhalation DAILY #180 ea 12/27/23 02/25/25 Rx 62.5 mcg-vilant 25 mcg inhalat.powder (Trelegy Ellipta) albuterol sulfate 90 mcg/actuation 1 - 2 puff inhalation Q4-6H PRN 02/21/24 02/25/25 Rx aerosol inhaler shortness of breath or wheezing #25.5 grams aspirin 81 mg capsule 81 mg PO DAILY 03/08/24 02/25/25 History cholecalciferol (vitamin D3) 50 2,000 unit PO DAILY 03/08/24 02/25/25 History mcg (2,000 unit) capsule omega 3 350 mg-dha 235 mg-epa 90 1 cap PO DAILY 03/08/24 02/25/25 History mg-fish oil 597 mg capsule,delay rel (Epworth-3) vibegron 75 mg tablet (Gemtesa) 75 mg PO DAILY 03/08/24 02/25/25 History CPAP 05/21/24 02/25/25 History Held on 02/25/25. Instructions: Patient not sleeping. loratadine 10 mg tablet (Claritin) 10 mg PO DAILY PRN allergy symptoms 05/21/24 02/25/25 History oxygen 05/21/24 02/25/25 History lidocaine 5 % topical patch See Rx Instructions .Route 07/23/24 02/25/25 Rx .COMPLEX #90 patches amlodipine 10 mg tablet 10 mg PO DAILY #90 tabs 08/27/24 02/25/25 Rx fluoxetine 20 mg capsule 20 mg PO TID #270 caps 08/27/24 02/25/25 Rx gabapentin 300 mg capsule 300 mg PO TID #270 caps 08/27/24 02/25/25 Rx montelukast 10 mg tablet 10 mg PO DAILY #90 tabs 08/27/24 02/25/25 Rx pantoprazole 40 mg tablet,delayed 40 mg PO BID #180 tabs 08/27/24 02/25/25 Rx release pravastatin 40 mg tablet 40 mg PO DAILY #90 tabs 08/27/24 02/25/25 Rx levothyroxine 150 mcg tablet 150 mcg PO DAILY #90 tabs 08/28/24 02/25/25 Rx (Synthroid) nebivolol 10 mg tablet (Bystolic) 10 mg PO DAILY #90 tabs 08/28/24 02/25/25 Rx folic acid 1 mg tablet 1 mg PO DAILY #90 tabs 09/03/24 02/25/25 Rx nystatin 100,000 unit/gram topical 1 applic topical BID PRN rash #60 11/01/24 02/25/25 Rx powder grams donepezil 5 mg tablet 5 mg PO QHS #90 tabs 02/06/25 02/25/25 Rx apixaban 5 mg tablet (Eliquis) 5 mg PO Q12HR #180 tabs 02/16/25 02/25/25 Rx benzonatate 200 mg capsule 200 mg PO TID PRN cough 7 days #20 02/16/25 02/25/25 Rx caps furosemide 20 mg tablet (Lasix) 20 mg PO BID PRN weight gain #60 02/16/25 02/25/25 Rx tabs guaifenesin 600 mg tablet, 1,200 mg (2 x 600 mg) PO Q12HR #60 02/16/25 02/25/25 Rx extended release 12 hr (Mucus tabs Relief ER) Allergies Allergy/AdvReac Type Severity Reaction Status Date / Time clindamycin Allergy Severe Chills Verified 02/25/25 06:13 diazepam Allergy Severe suicidal Verified 02/25/25 06:13 ideation levofloxacin (From Levaquin) Allergy Intermediate Itching Verified 02/25/25 06:13 cat dander Allergy Unknown Sinusitis Verified 02/25/25 06:13 dog dander Allergy Unknown Sinusitis Verified 02/25/25 06:13 feathers Allergy Unknown Sinusitis Verified 02/25/25 06:13 grass pollen Allergy Unknown Sinusitis Verified 02/25/25 06:13 house dust Allergy Unknown Sinusitis Verified 02/25/25 06:13 Rabbit Allergy Unknown Sinusitis Verified 02/25/25 06:13 tree and shrub pollen Allergy Unknown Sinusitis Verified 02/25/25 06:13 adhesive tape Allergy Redness of Verified 02/25/25 06:13 Skin silicone Allergy Unknown Verified 02/25/25 06:13 meperidine (From Demerol) AdvReac Hallucinati Verified 02/25/25 06:13 ng oxycodone (From Percocet) AdvReac Nausea Verified 02/25/25 06:13 propoxyphene AdvReac Nausea and Verified 02/25/25 06:13 Vomiting Vital Signs Vital Signs - 24 hr 02/28/25 20:00 02/28/25 20:00 02/28/25 20:25 Temperature 97.9 F Pulse Rate 66 64 65 Respiratory Rate 20 20 Blood Pressure 135/56 L Pulse Oximetry 95 93 Oxygen Delivery High Flow Nasal Cannula Oxygen Flow Rate 5 02/28/25 20:25 02/28/25 20:40 02/28/25 22:00 Temperature Pulse Rate 65 68 66 Respiratory Rate 20 20 Blood Pressure Pulse Oximetry Oxygen Delivery Oxygen Flow Rate 02/28/25 22:50 02/28/25 23:59 03/01/25 00:00 Temperature 98.5 F Pulse Rate 64 58 L 58 L Respiratory Rate 20 Blood Pressure 128/56 L Pulse Oximetry 91 91 Oxygen Delivery CPAP Oxygen Flow Rate 03/01/25 02:00 03/01/25 02:42 03/01/25 02:42 Temperature Pulse Rate 60 59 L 59 L Respiratory Rate 20 Blood Pressure Pulse Oximetry 92 92 Oxygen Delivery CPAP CPAP Oxygen Flow Rate 5 03/01/25 02:42 03/01/25 02:55 03/01/25 04:00 Temperature Pulse Rate 59 L 65 59 L Respiratory Rate 20 24 H Blood Pressure Pulse Oximetry Oxygen Delivery Oxygen Flow Rate 03/01/25 04:00 03/01/25 06:00 03/01/25 07:50 Temperature 98.4 F Pulse Rate 60 65 64 Respiratory Rate 20 22 H Blood Pressure 130/53 L Pulse Oximetry 92 96 Oxygen Delivery High Flow Nasal Cannula Oxygen Flow Rate 9 03/01/25 07:50 03/01/25 07:52 03/01/25 07:55 Temperature Pulse Rate 64 66 66 Respiratory Rate 22 H 16 20 Blood Pressure Pulse Oximetry 91 Oxygen Delivery Nasal Cannula Oxygen Flow Rate 6 03/01/25 08:00 03/01/25 08:00 03/01/25 09:32 Temperature 98.6 F Pulse Rate 64 66 60 Respiratory Rate 26 H Blood Pressure 140/63 Pulse Oximetry 95 Oxygen Delivery Oxygen Flow Rate 03/01/25 10:00 03/01/25 11:45 03/01/25 12:00 Temperature 98.2 F Pulse Rate 61 62 59 L Respiratory Rate 24 H Blood Pressure 130/66 Pulse Oximetry 93 Oxygen Delivery Oxygen Flow Rate 03/01/25 13:54 03/01/25 13:54 03/01/25 14:00 Temperature Pulse Rate 57 L 57 L 56 L Respiratory Rate 22 H 22 H Blood Pressure Pulse Oximetry 98 Oxygen Delivery High Flow Nasal Cannula Oxygen Flow Rate 6 03/01/25 14:02 03/01/25 14:05 03/01/25 16:00 Temperature 99.1 F Pulse Rate 60 62 59 L Respiratory Rate 20 20 23 H Blood Pressure 125/59 L Pulse Oximetry 95 96 Oxygen Delivery High Flow Nasal Cannula Oxygen Flow Rate 5 Exam Const: General: cooperative, healthy appearing, comfortable and well developed Orientation/consciousness: oriented to person and oriented to place HENMT: Head: normal to inspection, normocephalic and atraumatic Mouth: Yes Normal oral and palatal mucosa present and Yes moist mucous membranes Eyes: General: appearance normal, both eyes and all related structures Conjunctivae: conjunctivae normal Sclera: sclerae normal Pupils: Equal, round and reactive pupils present Neck: Neck: normal visual inspection Chest: Chest palpation & inspection: normal inspection of the chest Resp: Effort & Inspection: abnormal respiratory effort and able to speak in complete sentences Auscultation: not clear to auscultation bilaterally and crackles Other: Increased respiratory rate on O2 per nasal cannula Cardio: Jugular venous distension: no JVD Rate: regular rate Rhythm: regular rhythm Heart sounds: S1 normal heart sound present and S2 normal heart sound present GI: Inspection: normal to inspection GI Palp: Yes Soft to palpation, No Tenderness to palpation present (GI), No Guarding due to palpation present (GI) and Yes No hepatosplenomegaly present Auscultation: normal bowel sounds Rectal Exam: deferred Skin: General skin exam: normal color and no rashes or lesions noted Neuro: General: oriented to person, oriented to place, oriented to time and patient oriented x3 Cranial nerves: Yes Equal, round and reactive pupils present Speech: normal speech Extrem: General: normal to inspection and no clubbing, cyanosis or edema Psych: Appearance: grossly normal and well kempt Affect: normal affect Results Labs 03/01/25 03:51 03/01/25 03:51 Labs: Short CBC 03/01/25 Range/Units 03:51 WBC 13.2 H (4.5-10.0) K/mm3 Hgb 7.4 L (12.0-15.0) g/dL Hct 22.5 L (37.0-47.0) % Plt Count 124 L (150-375) k/mm3 BMP 03/01/25 03:51 Sodium 129 L Potassium 3.7 Chloride 98 Carbon Dioxide 26 BUN 20 H Creatinine 0.79 Glucose 90 Calcium 9.9 Liver Function 03/01/25 Range/Units 03:51 Total Bilirubin 1.4 H (0.2-1.3) mg/dL AST 24 (14-36) U/L ALT 22 (6-35) U/L Alkaline Phosphatase 69 (38-126) U/L Albumin 3.5 (3.5-5.1) g/dL
[2025-03-01] MEDS: DONEPEZIL HCL 5 MG TABLET PO (20:34)
[2025-03-02] VITALS (26 sets, daily range): BP systolic 99–153; BP diastolic 51–96; PULSE 55–131; RESP 16–27; TEMP 36.3–37; O2SAT 90–100
[2025-03-02] MEDS: IPRATROPIUM 0.5 MG/ALBUTEROL SULFATE 2.5 MG (BASE) AMPUL.NEB 3 ML INHALATION ×4 (01:42→20:39)
[2025-03-02] MEDS: LORazepam (*CRX) 1 MG TABLET 2 MG PO (04:00)
[2025-03-02 04:53] LABS: Hematocrit 28.2 % (37.0-47.0); Hemoglobin 9.4 g/dL (12.0-15.0); Immature Platelet Fraction Pct 6.7 % (0.9-11.2); Mean Corpuscular HGB Conc 33.3 g/dl (32-36); Mean Corpuscular Hemoglobin 31.4 pg (26-34); Mean Corpuscular Volume 94.3 fl (80-100); Platelet Count Result 134 k/mm3 (150-375); Red Blood Count 2.99 M/mm3 (4.2-5.4); White Blood Count 11.6 K/mm3 (4.5-10.0)
--- NOTE | 2025-03-02 04:55 | ECG_ITS ---
Test Date: 2025-03-02 05:09:19 Measurements Intervals Atkinson Rate: 104 P: 0 ID: 0 QRS: 50 QRSD: 102 T: 14 QT: 361 QTc: 476 Interpretive Statements ATRIAL FLUTTER/TACHYCARDIA WITH RAPID VENTRICULAR RESPONSE BORDERLINE ST-T WAVE ABNORMALITY- DIFFUSE LEADS BASELINE ARTIFACT- II, III, AVL, AVF ABNORMAL ECG Compared to ECG 02/25/2025 00:41:45 HEART RATE HAS INCREASED Electronically Signed On 03-02-2025 09:27:16 [employer] by Alonzo Sidhu D.O.
[2025-03-02] MEDS: CEFEPIME 2 GM in SODIUM CHLORIDE 0.9% IV 50 ML 100 ML IVPB ×2 (05:09→17:37)
[2025-03-02 05:20] LABS: Alanine Aminotransferase 33 U/L (6-35); Albumin Level 4.2 g/dL (3.5-5.1); Alkaline Phosphatase 88 U/L (38-126); Anion Gap 7 mmol/L (4-12); Aspartate Amino Transferase 29 U/L (14-36); Bilirubin,Total 2.5 mg/dL (0.2-1.3); Blood Urea Nitrogen 17 mg/dL (7-17); Calcium 10.6 mg/dL (8.4-10.2); Carbon Dioxide 32 mmol/L (22-30); Chloride 94 mmol/L (98-107); Estimated CRCL calculation 60 ml/min; Estimated Glomerular Filt Rate > 60; Glucose 91 mg/dL (65-110); Magnesium 1.1 mg/dL (1.6-2.3); Potassium 3.2 mmol/L (3.4-5.0); Sodium 133 mmol/L (137-145); Total Protein 7.1 g/dL (6.3-8.2)
[2025-03-02 05:25] LABS: Anisocytosis 1+; Band Neutrophils Percent 2 % (0-6); Eosinophils Absolute Manual 0.11 K/mm3 (0.02-0.50); Eosinophils Percent Manual 1 % (0-4); Hypochromasia 1+; Lymphocytes Absolute Manual 1.97 K/mm3 (1.1-4.5); Lymphocytes Percent Manual 17.0 % (18-44); Monocytes Absolute Manual 0.58 K/mm3 (0.1-0.90); Monocytes Percent Manual 5 % (3-9); Neutrophils Absolute Manual 8.93 K/mm3 (1.3-6.7); Neutrophils Percent Manual 75 % (46-73); Ovalocytes 1+; Poikilocytosis 1+; Schistocytes None Seen; Total Cells Counted 100
[2025-03-02 05:26] LABS: Smudge Cells PRESENT
[2025-03-02] MEDS: BENZONATATE 100 MG CAPSULE 200 MG PO ×3 (05:56→21:17)
[2025-03-02] MEDS: LEVOTHYROXINE SODIUM 150 MCG TABLET PO (05:57)
[2025-03-02] MEDS: FUROSEMIDE INJ 40 MG/4 ML VIAL IV PUSH ×2 (09:13→17:39)
[2025-03-02] MEDS: NEBIVOLOL HCL 5 MG TABLET 10 MG PO (09:14)
[2025-03-02] MEDS: DOXYCYCLINE IV 100 MG in SODIUM CHLORIDE 0.9% IV 100 ML IVPB ×2 (09:14→21:13)
[2025-03-02] MEDS: SODIUM CHLORIDE 500 MG TABLET PO (09:14)
[2025-03-02] MEDS: TELMISARTAN 40 MG TABLET PO ×2 (09:15→21:17)
[2025-03-02] MEDS: MONTELUKAST SODIUM 10 MG TABLET PO (09:15)
[2025-03-02] MEDS: OMEGA 3 POLYUNSAT FATTY ACIDS 1 GM CAP PO (09:15)
[2025-03-02] MEDS: SPIRONOLACTONE 25 MG TABLET PO (09:15)
[2025-03-02] MEDS: CHOLECALCIFEROL (VITAMIN D3) 25 MCG (1,000 UNITS) TABLET 50 MCG PO (09:15)
[2025-03-02] MEDS: PANTOPRAZOLE 40 MG TABLET PO ×2 (09:15→21:17)
[2025-03-02] MEDS: FOLIC ACID 1 MG TABLET PO (09:15)
[2025-03-02] MEDS: PRAVASTATIN SODIUM 20 MG TABLET 40 MG PO (09:15)
[2025-03-02] MEDS: LIDOCAINE 5% PATCH 1 PATCH TRANSDERM (09:16)
[2025-03-02] MEDS: guaiFENesin 12 HR 600 MG TABCR 1200 MG PO ×2 (09:16→21:17)
[2025-03-02] MEDS: DOCUSATE SODIUM 100 MG CAPSULE PO ×2 (09:16→21:17)
[2025-03-02] MEDS: ENOXAPARIN 40 MG/0.4 ML SYRINGE SUB-Q (09:16)
--- NOTE | 2025-03-02 09:20 | PM.IMPN2 ---
Assessment and Plan Assessment and Plan (1) Acute exacerbation of CHF (congestive heart failure): Qualifiers: Heart failure type: diastolic Qualified Code(s): I50.33 - Acute on chronic diastolic (congestive) heart failure Code(s): I50.9 - Heart failure, unspecified Status: Acute (2) Hypothyroidism: Qualifiers: Hypothyroidism type: acquired Qualified Code(s): E03.9 - Hypothyroidism, unspecified Code(s): E03.9 - Hypothyroidism, unspecified Status: Chronic (3) GI bleed: Qualifiers: GI bleed type/associated pathology: anorectal hemorrhage Qualified Code(s): K62.5 - Hemorrhage of anus and rectum Code(s): K92.2 - Gastrointestinal hemorrhage, unspecified Status: Acute (4) Pneumonia: Code(s): J18.9 - Pneumonia, unspecified organism Status: Acute (5) Acute and chronic respiratory failure: Qualifiers: Respiratory failure complication: hypoxia Qualified Code(s): J96.21 - Acute and chronic respiratory failure with hypoxia Code(s): J96.20 - Acute and chronic respiratory failure, unspecified whether with hypoxia or hypercapnia Status: Acute (6) On home oxygen therapy: Code(s): Z99.81 - Dependence on supplemental oxygen Status: Acute (7) NBA on CPAP: Code(s): G47.33 - Obstructive sleep apnea (adult) (pediatric); Z99.89 - Dependence on other enabling machines and devices Status: Chronic (8) Interstitial lung disease: Code(s): J84.9 - Interstitial pulmonary disease, unspecified Status: Chronic Plan 79-year-old female with PMH dementia, chronic anemia, depression and anxiety, NBA on CPAP, asthma chronic respiratory failure requiring 2 L nasal cannula, interstitial lung disease, chronic hyponatremia, diastolic heart failure, Genevieve's thyroiditis, history of rectocele, hysterectomy, tubal ligation, hypertension, fibromyalgia, presents to [facility] ER on 02/25 with shortness of breath and cough. Initially, not requiring any additional oxygen requirements. Patient has been on apixaban for AFib, reported she had greater than 3 days of coughing up blood and bright red blood per rectum. ----- Acute asthma exacerbation. Presented with worsening shortness of breath, cough, phlegm production. Pulmonology following. Asthma exacerbation resolved, status post Solu-Medrol. Continue DuoNebs, guaifenesin, Tessalon Perles. For possible pneumonia she is on cefepime and doxycycline. She remains on 5 L nasal cannula although denies any shortness of breath, continue to wean as tolerated. WBC decreasing from 13.2-11.6, continue to cycle. Interstitial lung disease first seen on CT chest 10/02/[address] pattern indeterminate for UIP and given clinical diagnosis of fibrotic NSIP. PFT on 03/18/2023 with mild restrictive abnormality with an FEV1 of 1.68 L, total lung capacity 3.06 L, 59% and moderately decreased DLCO that remain mildly decreased when corrected for alveolar volume. Status post Solu-Medrol. Pulmonology considering aggressive systemic steroids if patient does not improve with heart failure treatment. Patient had coughing with presumed aspiration. Continue speech therapy. Moderately thick liquids. Acute heart failure: Continue Lasix, spironolactone, telmisartan. Daily weights, strict intake/output. NBA on CPAP: Continue CPAP settings per pulmonology, CPAP 13 with 5 L bleed in. Chronic hyponatremia. Stable. 129 --> 133, continue to monitor. Hypokalemia, likely related to furosemide, start scheduled KCl 20 mEq b.i.d.. Magnesium 1.1, replaced. Atrial fibrillation, aspirin and Eliquis on hold. Continue telemetry. Continue nebivolol. Hypothyroidism, continue Synthroid. Essential hypertension, blood pressure at goal. Continue amlodipine, Lasix, nebivolol, spironolactone, telmisartan. Depression, continue fluoxetine. Acute on chronic anemia. Hemoglobin improved. Continue to monitor, monitor recent hemoptysis and hematochezia which are now resolved. GI consultation complete, high-risk candidate for endoscopy. Thrombocytopenia: Continue to monitor. Anisocoria: Assuming care on 03/02/2025, left pupil greater than right, significant, both reactive. Reviewed multiple charts from various clinicians. No mention of this before. Neurologic exam unreliable due to the patient's dementia, CT brain now. Patient wishes to be full code. Heart healthy diet. Lovenox. Time Spent With Patient Time with patient: Greater than 35 minutes Subjective Date/time seen: 03/02/25 09:20 Interval history: No acute overnight events. Spoke with nurse, reported to continue to require 5 L nasal cannula after attempt to wean. Patient has no complaints today, she reports feeling at her baseline, no shortness of breath. Review of Systems Review of Systems: All systems reviewed & are unremarkable except as noted in HPI and below (Subjective) Exam Const: General: comfortable and no acute distress Other: Pleasantly confused Eyes: Other: Anisocoria, left greater than right, both reactive to light. Resp: Other: Bibasilar crackles left greater than right Cardio: Rate: regular rate Rhythm: abnormal rhythm GI: Inspection: non-distended GI Palp: Yes Soft to palpation Neuro: Motor exam (neuro): 5/5 motor strength present throughout Extrem: Other: 2+ pitting edema bilateral lower extremities up to the mid tibial regions Objective Data Vital Signs Vital Signs: Vital Signs - 24 hr 03/01/25 09:32 03/01/25 10:00 03/01/25 11:45 Temperature 98.2 F Pulse Rate 60 61 62 Respiratory Rate 24 H Blood Pressure 130/66 Pulse Oximetry 93 Oxygen Delivery Oxygen Flow Rate 03/01/25 12:00 03/01/25 13:54 03/01/25 13:54 Temperature Pulse Rate 59 L 57 L 57 L Respiratory Rate 22 H 22 H Blood Pressure Pulse Oximetry 98 Oxygen Delivery High Flow Nasal Cannula Oxygen Flow Rate 6 03/01/25 14:00 03/01/25 14:02 03/01/25 14:05 Temperature Pulse Rate 56 L 60 62 Respiratory Rate 20 20 Blood Pressure Pulse Oximetry 95 Oxygen Delivery High Flow Nasal Cannula Oxygen Flow Rate 5 03/01/25 16:00 03/01/25 16:00 03/01/25 16:00 Temperature 99.1 F Pulse Rate 59 L 61 Respiratory Rate 23 H Blood Pressure 125/59 L Pulse Oximetry 96 96 Oxygen Delivery High Flow Nasal Cannula Oxygen Flow Rate 5 03/01/25 18:00 03/01/25 20:00 03/01/25 20:00 Temperature 98.4 F Pulse Rate 67 60 60 Respiratory Rate 22 H Blood Pressure 138/57 L Pulse Oximetry 92 Oxygen Delivery Oxygen Flow Rate 03/01/25 20:03 03/01/25 20:05 03/01/25 20:12 Temperature Pulse Rate 55 L 55 L 67 Respiratory Rate 20 20 20 Blood Pressure Pulse Oximetry 95 Oxygen Delivery High Flow Nasal Cannula Oxygen Flow Rate 5 03/01/25 22:00 03/01/25 22:48 03/02/25 00:00 Temperature 98.5 F Pulse Rate 60 60 57 L Respiratory Rate 20 Blood Pressure 147/66 H Pulse Oximetry 96 95 Oxygen Delivery CPAP Oxygen Flow Rate 03/02/25 00:00 03/02/25 01:43 03/02/25 01:45 Temperature Pulse Rate 55 L 62 63 Respiratory Rate 20 Blood Pressure Pulse Oximetry 96 Oxygen Delivery CPAP Oxygen Flow Rate 03/02/25 01:53 03/02/25 02:00 03/02/25 04:00 Temperature 97.4 F L Pulse Rate 57 L 99 124 H Respiratory Rate 20 20 Blood Pressure 137/96 H Pulse Oximetry 90 Oxygen Delivery Oxygen Flow Rate 03/02/25 04:00 03/02/25 04:56 03/02/25 06:00 Temperature Pulse Rate 111 H 67 92 Respiratory Rate Blood Pressure Pulse Oximetry 90 Oxygen Delivery CPAP Oxygen Flow Rate 03/02/25 07:23 03/02/25 07:34 03/02/25 07:55 Temperature Pulse Rate 66 67 Respiratory Rate 20 20 Blood Pressure Pulse Oximetry 97 Oxygen Delivery High Flow Nasal Cannula Oxygen Flow Rate 5 03/02/25 08:00 03/02/25 09:14 Temperature 98.6 F Pulse Rate 131 H 101 H Respiratory Rate 26 H Blood Pressure 153/91 H Pulse Oximetry 95 Oxygen Delivery Oxygen Flow Rate Intake/Output Intake/Output: Intake & Output 02/27/25 02/28/25 03/01/25 03/02/25 23:59 23:59 23:59 23:59 Intake Total 1520 2390 680 540 Output Total 1400 3000 5200 140 Balance 497 [phone] Meds/Results Medications: Active Medications Generic Name Dose Route Start Last Admin Trade Name Freq PRN Reason Stop Dose Admin Acetaminophen 650 mg 02/25/25 02:42 Acetaminophen 325 Mg Tablet PO Q4H PRN Mild Pain (1-3) or Fever Albuterol 2.5 mg 02/25/25 15:24 Albuterol Sulfate Neb 2.5 Mg/3 Ml Inh INHALATION Q6HRT PRN Shortness Of Breath Or Wheezing Albuterol/Ipratropium 3 ml 02/25/25 08:00 03/02/25 07:23 Ipratropium 0.5 Mg/Albuterol Sulfate 2.5 Mg (Base) Ampul.Neb 3 Ml INHALATION 3 ml Q6HRT VIN Administration Amlodipine Besylate 10 mg 02/26/25 09:00 03/02/25 09:15 Amlodipine Besylate 10 Mg Tablet PO 10 mg DAILY VIN Administration Benzonatate 200 mg 02/27/25 22:00 03/02/25 05:56 Benzonatate 100 Mg Capsule PO 200 mg Q8HR VIN Administration Diclofenac Sodium 0 applic 02/25/25 15:24 Diclofenac Sodium 1% 100 Gm Gel (*Bkc) TOPICAL QID PRN JOINT PAIN Docusate Sodium 100 mg 02/25/25 21:00 03/02/25 09:16 Docusate Sodium 100 Mg Capsule PO 100 mg Q12HR VIN Administration Donepezil HCl 5 mg 02/25/25 21:00 03/01/25 20:34 Donepezil Hcl 5 Mg Tablet PO 5 mg QHS VIN Administration Enoxaparin Sodium 40 mg 03/01/25 09:00 03/02/25 09:16 Enoxaparin 40 Mg/0.4 Ml Syringe SUB-Q 40 mg DAILY VIN Administration Fish Oil 1 gm 02/26/25 09:00 03/02/25 09:15 [place] 3 Polyunsat Fatty Acids 1 Gm Cap PO 1 gm DAILY VIN Administration Fluoxetine HCl 20 mg 02/25/25 22:00 03/02/25 05:56 Fluoxetine Hcl 20 Mg Capsule PO 20 mg Q8HR VIN Administration Folic Acid 1 mg 02/26/25 09:00 03/02/25 09:15 Folic Acid 1 Mg Tablet PO 1 mg DAILY VIN Administration Furosemide 40 mg 03/01/25 09:00 03/02/25 09:13 Furosemide Inj 40 Mg/4 Ml Vial IV PUSH 40 mg BID VIN Administration Gabapentin 300 mg 02/25/25 15:35 03/01/25 05:29 Gabapentin 300 Mg Capsule PO 300 mg On Hold: 03/01/25 13:41 Q8HR VIN Administration Guaifenesin 1,200 mg 02/25/25 21:00 03/02/25 09:16 Guaifenesin 12 Hr 600 Mg Tabcr PO 1,200 mg Q12HR VIN Administration Cefepime HCl 2 gm/ Sodium 50 mls @ 100 mls/hr 02/25/25 17:00 03/02/25 05:09 Chloride IVPB 100 mls/hr Q12H VIN Administration Doxycycline Hyclate 100 mg/ 100 mls @ 100 mls/hr 03/02/25 09:00 03/02/25 09:14 Sodium Chloride IVPB 100 mls/hr Q12HR VIN Administration Levothyroxine Sodium 150 mcg 02/26/25 06:30 03/02/25 05:57 Levothyroxine Sodium 150 Mcg Tablet PO 150 mcg DAILY@0630 VIN Administration Lidocaine 1 patch 02/26/25 09:00 03/02/25 09:16 Lidocaine 5% Patch TRANSDERM 1 patch DAILY VIN Administration Loratadine 10 mg 02/25/25 15:24 Loratadine 10 Mg Tablet PO DAILY PRN allergy symptoms Lorazepam 2 mg 02/26/25 23:03 03/02/25 04:00 Lorazepam (*Crx) 1 Mg Tablet PO 2 mg Q4H PRN Administration Anxiety Montelukast Sodium 10 mg 02/26/25 09:00 03/02/25 09:15 Montelukast Sodium 10 Mg Tablet PO 10 mg DAILY VIN Administration Nebivolol 10 mg 02/26/25 09:00 03/02/25 09:14 Nebivolol Hcl 5 Mg Tablet PO 10 mg DAILY VIN Administration Ondansetron HCl 4 mg 02/25/25 02:42 Ondansetron Inj 4 Mg/2 Ml Vial IV PUSH Q4H PRN Nausea Pantoprazole Sodium 40 mg 02/25/25 21:00 03/02/25 09:15 Pantoprazole 40 Mg Tablet PO 40 mg Q12HR VIN Administration Pravastatin Sodium 40 mg 02/26/25 09:00 03/02/25 09:15 Pravastatin Sodium 20 Mg Tablet PO 40 mg DAILY VIN Administration Sodium Chloride 500 mg 02/28/25 09:00 03/02/25 09:14 Sodium Chloride 500 Mg Tablet PO 500 mg QAM VIN Administration Spironolactone 25 mg 02/26/25 09:00 03/02/25 09:15 Spironolactone 25 Mg Tablet PO 25 mg DAILY VIN Administration Telmisartan 40 mg 02/25/25 21:00 03/02/25 09:15 Telmisartan 40 Mg Tablet PO 40 mg Q12HR VIN Administration Vitamin D 50 mcg 02/26/25 09:00 03/02/25 09:15 Cholecalciferol (Vitamin D3) 25 Mcg (1,000 Units) Tablet PO 50 mcg DAILY VIN Administration Radiology Results: ITS Impressions Modified Barium Swallow 02/27/25 12:16 IMPRESSION: Laryngeal penetration without aspiration. Please correlate with speech pathologist findings and specific feeding recommendations. Chest CTA 02/27/25 13:55 IMPRESSION: 1. No PE. 2. Acute scattered bilateral pneumonitis. Chest X-Ray 03/01/25 08:10 IMPRESSION: 1. Unchanged scattered bilateral airspace opacities which could represent pneumonia or pulmonary edema. 2. Cardiomegaly. Labs Labs: Laboratory Results - last 24 hr 02/27/25 02/28/25 03/01/25 13:33 03:51 03:51 WBC RBC Hgb Hct MCV MCH MCHC RDW Plt Count MPV Immature Gran % (Auto) Neut % (Auto) Lymph % (Auto) [place] % (Auto) Eos % (Auto) Baso % (Auto) Lymph # (Auto) [place] # (Auto) Eos # (Auto) Baso # (Auto) Abs Immat Gran (auto) Absolute Neuts (auto) Absolute Nucleated RBC Total Counted Neutrophils % (Manual) Band Neutrophils % Lymphocytes % (Manual) Monocytes % (Manual) Eosinophils % (Manual) Nucleated RBC % Abs Neuts (Manual) Abs Lymphs (Manual) Abs Monocytes (Manual) Absolute Eos (Manual) Smudge Cells Platelet Estimate % Immature Plt Fraction Hypochromasia Poikilocytosis Anisocytosis Ovalocytes Schistocytes Sodium Potassium Chloride Carbon Dioxide Anion Gap BUN Creatinine Estim Creat Clear Calc Estimated GFR Glucose Calcium Magnesium Total Bilirubin AST ALT Alkaline Phosphatase Total Protein Albumin Procalcitonin 0.1 TSH 1.310 Chlamy pneumoniae PCR Not detected Adenovirus (PCR) Not detected B. pertussis DNA (PCR) Not detected B.parapertussis DNA PCR Not detected Coronavirus OC43 (PCR) Not detected Coronavirus HKU1 (PCR) Not detected Coronavirus 229E (PCR) Not detected Coronavirus NL63 (PCR) Not detected Human Metapneumovir PCR Not detected Influenza A (H1) PCR Not detected Influ A (H1/09) PCR Not detected Influenza A (H3) PCR Not detected Influenza Type A (PCR) Not detected Influenza Type B (PCR) Not detected M.pneumoniae IgM Titer <770 M. pneumoniae (PCR) Not detected Parainfluenza 1 (PCR) Not detected Parainfluenza 2 (PCR) Not detected Parainfluenza 3 (PCR) Not detected Parainfluenza 4 (PCR) Not detected RSV (PCR) Not detected Entero/Rhino (PCR) Not detected SARS-CoV-2 (PCR) Not detected 03/02/25 04:04 WBC 11.6 H RBC 2.99 L Hgb 9.4 L Hct 28.2 L MCV 94.3 MCH 31.4 MCHC 33.3 RDW 14.6 H Plt Count 134 L MPV 11.2 H Immature Gran % (Auto) Not Reportable Neut % (Auto) Not Reportable Lymph % (Auto) Not Reportable [place] % (Auto) Not Reportable Eos % (Auto) Not Reportable Baso % (Auto) Not Reportable Lymph # (Auto) Not Reportable [place] # (Auto) Not Reportable Eos # (Auto) Not Reportable Baso # (Auto) Not Reportable Abs Immat Gran (auto) Not Reportable Absolute Neuts (auto) Not Reportable Absolute Nucleated RBC Not Reportable Total Counted 100 Neutrophils % (Manual) 75 H Band Neutrophils % 2 Lymphocytes % (Manual) 17.0 L Monocytes % (Manual) 5 Eosinophils % (Manual) 1 Nucleated RBC % Not Reportable Abs Neuts (Manual) 8.93 H Abs Lymphs (Manual) 1.97 Abs Monocytes (Manual) 0.58 Absolute Eos (Manual) 0.11 Smudge Cells Present Platelet Estimate Decreased % Immature Plt Fraction 6.7 Hypochromasia 1+ Poikilocytosis 1+ Anisocytosis 1+ Ovalocytes 1+ Schistocytes None seen Sodium 133 L Potassium 3.2 L Chloride 94 L Carbon Dioxide 32 H Anion Gap 7 BUN 17 Creatinine 0.76 Estim Creat Clear Calc 60 Estimated GFR > 60 Glucose 91 Calcium 10.6 H Magnesium 1.1 L Total Bilirubin 2.5 H AST 29 ALT 33 Alkaline Phosphatase 88 Total Protein 7.1 Albumin 4.2 Procalcitonin TSH Chlamy pneumoniae PCR Adenovirus (PCR) B. pertussis DNA (PCR) B.parapertussis DNA PCR Coronavirus OC43 (PCR) Coronavirus HKU1 (PCR) Coronavirus 229E (PCR) Coronavirus NL63 (PCR) Human Metapneumovir PCR Influenza A (H1) PCR Influ A () PCR Influenza A (H3) PCR Influenza Type A (PCR) Influenza Type B (PCR) M.pneumoniae IgM Titer M. pneumoniae (PCR) Parainfluenza 1 (PCR) Parainfluenza 2 (PCR) Parainfluenza 3 (PCR) Parainfluenza 4 (PCR) RSV (PCR) Entero/Rhino (PCR) SARS-CoV-2 (PCR)
--- NOTE | 2025-03-02 10:07 | PM.PNCARD ---
Progress Note: A&P Assessment and Plan (1) Atrial fibrillation: Code(s): I48.91 - Unspecified atrial fibrillation Status: Acute Plan 79-year-old lady with paroxysmal atrial fibrillation presumably triggered by her chronic interstitial lung disease. She has been primarily in sinus rhythm during this hospitalization but this morning is back in atrial fib with which she is asymptomatic. I am going to try transitioning her beta-taco to metoprolol which is generally more effective for atrial fib treatment then nebivolol. Tad Morales MD [facility] Subjective Date/time seen: Date of service: 03/02/25 10:07 Interval history: Patient is resting comfortably in the bedside chair. Nasal cannula oxygen placed. Patient back in atrial fibrillation this morning heart rate is in the 90s to low 100s. She is unaware of this. No symptoms of palpitations or awareness of her arrhythmia. Exam Const: General: comfortable, no acute distress, alert and awake Orientation/consciousness: patient oriented x3 HENMT: Head: normal to inspection Mouth: Yes moist mucous membranes Eyes: General: appearance normal, both eyes and all related structures Pupils: Equal, round and reactive pupils present EOM: EOMs intact bilaterally Neck: Neck: normal visual inspection, supple and no JVD Carotids: normal carotid upstroke Resp: Effort & Inspection: normal respiratory effort Auscultation: rales, rhonchi and wheezes Cardio: Rate: regular rate Rhythm: abnormal rhythm irregularly irregular Heart sounds: S1 normal heart sound present, S2 normal heart sound present and Murmur heart sound present GI: Auscultation: normal bowel sounds Skin: General skin exam: normal color Neuro: General: patient oriented x3 Cranial nerves: Yes Equal, round and reactive pupils present Extrem: General: edema and pedal edema Other: trace bilateral pretibial edema Psych: Appearance: grossly normal Mental Status: mental status grossly abnormal Objective Data Vital Signs Vital Signs: Vital Signs - 24 hr 03/01/25 11:45 03/01/25 12:00 03/01/25 13:54 Temperature 36.8 C Pulse Rate 62 59 L 57 L Respiratory Rate 24 H 22 H Blood Pressure 130/66 Pulse Oximetry 93 98 Oxygen Delivery High Flow Nasal Cannula Oxygen Flow Rate 6 03/01/25 13:54 03/01/25 14:00 03/01/25 14:02 Temperature Pulse Rate 57 L 56 L 60 Respiratory Rate 22 H 20 Blood Pressure Pulse Oximetry 95 Oxygen Delivery High Flow Nasal Cannula Oxygen Flow Rate 5 03/01/25 14:05 03/01/25 16:00 03/01/25 16:00 Temperature 37.3 C Pulse Rate 62 59 L Respiratory Rate 20 23 H Blood Pressure 125/59 L Pulse Oximetry 96 96 Oxygen Delivery High Flow Nasal Cannula Oxygen Flow Rate 5 03/01/25 16:00 03/01/25 18:00 03/01/25 20:00 Temperature 36.9 C Pulse Rate 61 67 60 Respiratory Rate 22 H Blood Pressure 138/57 L Pulse Oximetry 92 Oxygen Delivery Oxygen Flow Rate 03/01/25 20:00 03/01/25 20:03 03/01/25 20:05 Temperature Pulse Rate 60 55 L 55 L Respiratory Rate 20 20 Blood Pressure Pulse Oximetry 95 Oxygen Delivery High Flow Nasal Cannula Oxygen Flow Rate 5 03/01/25 20:12 03/01/25 22:00 03/01/25 22:48 Temperature Pulse Rate 67 60 60 Respiratory Rate 20 Blood Pressure Pulse Oximetry 96 Oxygen Delivery CPAP Oxygen Flow Rate 03/02/25 00:00 03/02/25 00:00 03/02/25 01:43 Temperature 36.9 C Pulse Rate 57 L 55 L 62 Respiratory Rate 20 20 Blood Pressure 147/66 H Pulse Oximetry 95 Oxygen Delivery Oxygen Flow Rate 03/02/25 01:45 03/02/25 01:53 03/02/25 02:00 Temperature Pulse Rate 63 57 L 99 Respiratory Rate 20 Blood Pressure Pulse Oximetry 96 Oxygen Delivery CPAP Oxygen Flow Rate 03/02/25 04:00 03/02/25 04:00 03/02/25 04:56 Temperature 36.3 C L Pulse Rate 124 H 111 H 67 Respiratory Rate 20 Blood Pressure 137/96 H Pulse Oximetry 90 90 Oxygen Delivery CPAP Oxygen Flow Rate 03/02/25 06:00 03/02/25 07:23 03/02/25 07:34 Temperature Pulse Rate 92 66 67 Respiratory Rate 20 20 Blood Pressure Pulse Oximetry Oxygen Delivery Oxygen Flow Rate 03/02/25 07:55 03/02/25 08:00 03/02/25 09:14 Temperature 37.0 C Pulse Rate 131 H 101 H Respiratory Rate 26 H Blood Pressure 153/91 H Pulse Oximetry 97 95 Oxygen Delivery High Flow Nasal Cannula Oxygen Flow Rate 5 Intake/Output Intake/Output: Intake & Output 02/27/25 02/28/25 03/01/25 03/02/25 23:59 23:59 23:59 23:59 Intake Total 1520 2390 680 540 Output Total 1400 3000 5200 140 Balance [phone] -056 -[phone] Meds/Results Medications: Active Medications Generic Name Dose Route Start Last Admin Trade Name Freq PRN Reason Stop Dose Admin Acetaminophen 650 mg 02/25/25 02:42 Acetaminophen 325 Mg Tablet PO Q4H PRN Mild Pain (1-3) or Fever Albuterol 2.5 mg 02/25/25 15:24 Albuterol Sulfate Neb 2.5 Mg/3 Ml Inh INHALATION Q6HRT PRN Shortness Of Breath Or Wheezing Albuterol/Ipratropium 3 ml 02/25/25 08:00 03/02/25 07:23 Ipratropium 0.5 Mg/Albuterol Sulfate 2.5 Mg (Base) Ampul.Neb 3 Ml INHALATION 3 ml Q6HRT VIN Administration Amlodipine Besylate 10 mg 02/26/25 09:00 03/02/25 09:15 Amlodipine Besylate 10 Mg Tablet PO 10 mg DAILY VIN Administration Benzonatate 200 mg 02/27/25 22:00 03/02/25 05:56 Benzonatate 100 Mg Capsule PO 200 mg Q8HR VIN Administration Diclofenac Sodium 0 applic 02/25/25 15:24 Diclofenac Sodium 1% 100 Gm Gel (*Bkc) TOPICAL QID PRN JOINT PAIN Docusate Sodium 100 mg 02/25/25 21:00 03/02/25 09:16 Docusate Sodium 100 Mg Capsule PO 100 mg Q12HR VIN Administration Donepezil HCl 5 mg 02/25/25 21:00 03/01/25 20:34 Donepezil Hcl 5 Mg Tablet PO 5 mg QHS VIN Administration Enoxaparin Sodium 40 mg 03/01/25 09:00 03/02/25 09:16 Enoxaparin 40 Mg/0.4 Ml Syringe SUB-Q 40 mg DAILY VIN Administration Fish Oil 1 gm 02/26/25 09:00 03/02/25 09:15 [place] 3 Polyunsat Fatty Acids 1 Gm Cap PO 1 gm DAILY VIN Administration Fluoxetine HCl 20 mg 02/25/25 22:00 03/02/25 05:56 Fluoxetine Hcl 20 Mg Capsule PO 20 mg Q8HR VIN Administration Folic Acid 1 mg 02/26/25 09:00 03/02/25 09:15 Folic Acid 1 Mg Tablet PO 1 mg DAILY VIN Administration Furosemide 40 mg 03/01/25 09:00 03/02/25 09:13 Furosemide Inj 40 Mg/4 Ml Vial IV PUSH 40 mg BID VIN Administration Gabapentin 300 mg 02/25/25 15:35 03/01/25 05:29 Gabapentin 300 Mg Capsule PO 300 mg On Hold: 03/01/25 13:41 Q8HR VIN Administration Guaifenesin 1,200 mg 02/25/25 21:00 03/02/25 09:16 Guaifenesin 12 Hr 600 Mg Tabcr PO 1,200 mg Q12HR VIN Administration Cefepime HCl 2 gm/ Sodium 50 mls @ 100 mls/hr 02/25/25 17:00 03/02/25 05:09 Chloride IVPB 100 mls/hr Q12H VIN Administration Doxycycline Hyclate 100 mg/ 100 mls @ 100 mls/hr 03/02/25 09:00 03/02/25 09:14 Sodium Chloride IVPB 100 mls/hr Q12HR VIN Administration Magnesium Sulfate 4 gm in 100 mls @ 25 mls/hr 03/02/25 09:39 Magnesium Sulf 4 Gm/[id number] IVPB 03/02/25 13:38 ONCE ONE Levothyroxine Sodium 150 mcg 02/26/25 06:30 03/02/25 05:57 Levothyroxine Sodium 150 Mcg Tablet PO 150 mcg DAILY@0630 VIN Administration Lidocaine 1 patch 02/26/25 09:00 03/02/25 09:16 Lidocaine 5% Patch TRANSDERM 1 patch DAILY VIN Administration Loratadine 10 mg 02/25/25 15:24 Loratadine 10 Mg Tablet PO DAILY PRN allergy symptoms Lorazepam 2 mg 02/26/25 23:03 03/02/25 04:00 Lorazepam (*Crx) 1 Mg Tablet PO 2 mg Q4H PRN Administration Anxiety Montelukast Sodium 10 mg 02/26/25 09:00 03/02/25 09:15 Montelukast Sodium 10 Mg Tablet PO 10 mg DAILY VIN Administration Nebivolol 10 mg 02/26/25 09:00 03/02/25 09:14 Nebivolol Hcl 5 Mg Tablet PO 10 mg DAILY VIN Administration Ondansetron HCl 4 mg 02/25/25 02:42 Ondansetron Inj 4 Mg/2 Ml Vial IV PUSH Q4H PRN Nausea Pantoprazole Sodium 40 mg 02/25/25 21:00 03/02/25 09:15 Pantoprazole 40 Mg Tablet PO 40 mg Q12HR VIN Administration Potassium Chloride 20 meq 03/02/25 09:40 Potassium Chloride 20 Meq Er Tablet PO BID VIN Pravastatin Sodium 40 mg 02/26/25 09:00 03/02/25 09:15 Pravastatin Sodium 20 Mg Tablet PO 40 mg DAILY VIN Administration Sodium Chloride 500 mg 02/28/25 09:00 03/02/25 09:14 Sodium Chloride 500 Mg Tablet PO 500 mg QAM VIN Administration Spironolactone 25 mg 02/26/25 09:00 03/02/25 09:15 Spironolactone 25 Mg Tablet PO 25 mg DAILY VIN Administration Telmisartan 40 mg 02/25/25 21:00 03/02/25 09:15 Telmisartan 40 Mg Tablet PO 40 mg Q12HR VIN Administration Vitamin D 50 mcg 02/26/25 09:00 03/02/25 09:15 Cholecalciferol (Vitamin D3) 25 Mcg (1,000 Units) Tablet PO 50 mcg DAILY VIN Administration Radiology Results: ITS Impressions Modified Barium Swallow 02/27/25 12:16 IMPRESSION: Laryngeal penetration without aspiration. Please correlate with speech pathologist findings and specific feeding recommendations. Chest CTA 02/27/25 13:55 IMPRESSION: 1. No PE. 2. Acute scattered bilateral pneumonitis. Chest X-Ray 03/01/25 08:10 IMPRESSION: 1. Unchanged scattered bilateral airspace opacities which could represent pneumonia or pulmonary edema. 2. Cardiomegaly. Labs Labs: Laboratory Results - last 24 hr 02/27/25 02/28/25 03/02/25 13:33 03:51 04:04 WBC 11.6 H RBC 2.99 L Hgb 9.4 L Hct 28.2 L MCV 94.3 MCH 31.4 MCHC 33.3 RDW 14.6 H Plt Count 134 L MPV 11.2 H Immature Gran % (Auto) Not Reportable Neut % (Auto) Not Reportable Lymph % (Auto) Not Reportable [place] % (Auto) Not Reportable Eos % (Auto) Not Reportable Baso % (Auto) Not Reportable Lymph # (Auto) Not Reportable [place] # (Auto) Not Reportable Eos # (Auto) Not Reportable Baso # (Auto) Not Reportable Abs Immat Gran (auto) Not Reportable Absolute Neuts (auto) Not Reportable Absolute Nucleated RBC Not Reportable Total Counted 100 Neutrophils % (Manual) 75 H Band Neutrophils % 2 Lymphocytes % (Manual) 17.0 L Monocytes % (Manual) 5 Eosinophils % (Manual) 1 Nucleated RBC % Not Reportable Abs Neuts (Manual) 8.93 H Abs Lymphs (Manual) 1.97 Abs Monocytes (Manual) 0.58 Absolute Eos (Manual) 0.11 Smudge Cells Present Platelet Estimate Decreased % Immature Plt Fraction 6.7 Hypochromasia 1+ Poikilocytosis 1+ Anisocytosis 1+ Ovalocytes 1+ Schistocytes None seen Sodium 133 L Potassium 3.2 L Chloride 94 L Carbon Dioxide 32 H Anion Gap 7 BUN 17 Creatinine 0.76 Estim Creat Clear Calc 60 Estimated GFR > 60 Glucose 91 Calcium 10.6 H Magnesium 1.1 L Total Bilirubin 2.5 H AST 29 ALT 33 Alkaline Phosphatase 88 Total Protein 7.1 Albumin 4.2 Chlamy pneumoniae PCR Not detected Adenovirus (PCR) Not detected B. pertussis DNA (PCR) Not detected B.parapertussis DNA PCR Not detected Coronavirus OC43 (PCR) Not detected Coronavirus HKU1 (PCR) Not detected Coronavirus 229E (PCR) Not detected Coronavirus NL63 (PCR) Not detected Human Metapneumovir PCR Not detected Influenza A (H1) PCR Not detected Influ A (H1/09) PCR Not detected Influenza A (H3) PCR Not detected Influenza Type A (PCR) Not detected Influenza Type B (PCR) Not detected M.pneumoniae IgM Titer <770 M. pneumoniae (PCR) Not detected Parainfluenza 1 (PCR) Not detected Parainfluenza 2 (PCR) Not detected Parainfluenza 3 (PCR) Not detected Parainfluenza 4 (PCR) Not detected RSV (PCR) Not detected Entero/Rhino (PCR) Not detected SARS-CoV-2 (PCR) Not detected
--- NOTE | 2025-03-02 12:26 | P.PNGI_ITS ---
Progress Note: A&P Assessment and Plan (1) Anemia of chronic disease: Code(s): D63.8 - Anemia in other chronic diseases classified elsewhere Status: Acute (2) Hematochezia: Code(s): K92.1 - Melena Status: Acute (3) GI bleed: Qualifiers: GI bleed type/associated pathology: anorectal hemorrhage Qualified Code(s): K62.5 - Hemorrhage of anus and rectum Code(s): K92.2 - Gastrointestinal hemorrhage, unspecified Status: Acute Plan 79-year-old female who came to the hospital because of GI bleed. Her hemoglobin level is stable at 9.4. There was no further bleeding. Plan 1. Order CBC for tomorrow morning. 2. Regular diet. Time Spent With Patient Time with patient: 15 - 25 minutes Subjective Date/time seen: 03/02/25 12:26 Interval history: GI bleed, stable. Hemoglobin stable at 9.4. Review of Systems Review of Systems: 11 review of symptoms are negative except the ones mentioned in the H&P. All systems reviewed & are unremarkable except as noted in HPI and below (Subjective) Exam Const: General: comfortable, no acute distress, alert and awake Orientation/consciousness: patient oriented x3 HENMT: Head: normal to inspection Mouth: Yes moist mucous membranes Eyes: General: appearance normal, both eyes and all related structures Pupils: Equal, round and reactive pupils present EOM: EOMs intact bilaterally Neck: Neck: normal visual inspection, supple and no JVD Carotids: normal carotid upstroke Resp: Effort & Inspection: normal respiratory effort Auscultation: rales, rhonchi and wheezes Cardio: Rate: regular rate Rhythm: abnormal rhythm irregularly irregular Heart sounds: S1 normal heart sound present, S2 normal heart sound present and Murmur heart sound present GI: Auscultation: normal bowel sounds Skin: General skin exam: normal color Neuro: General: patient oriented x3 Cranial nerves: Yes Equal, round and reactive pupils present Extrem: General: edema and pedal edema Other: trace bilateral pretibial edema Psych: Appearance: grossly normal Mental Status: mental status grossly abnormal Objective Data Vital Signs Vital Signs: Vital Signs - 24 hr 03/01/25 13:54 03/01/25 13:54 03/01/25 14:00 Temperature Pulse Rate 57 L 57 L 56 L Respiratory Rate 22 H 22 H Blood Pressure Pulse Oximetry 98 Oxygen Delivery High Flow Nasal Cannula Oxygen Flow Rate 6 03/01/25 14:02 03/01/25 14:05 03/01/25 16:00 Temperature 99.1 F Pulse Rate 60 62 59 L Respiratory Rate 20 20 23 H Blood Pressure 125/59 L Pulse Oximetry 95 96 Oxygen Delivery High Flow Nasal Cannula Oxygen Flow Rate 5 03/01/25 16:00 03/01/25 16:00 03/01/25 18:00 Temperature Pulse Rate 61 67 Respiratory Rate Blood Pressure Pulse Oximetry 96 Oxygen Delivery High Flow Nasal Cannula Oxygen Flow Rate 5 03/01/25 20:00 03/01/25 20:00 03/01/25 20:03 Temperature 98.4 F Pulse Rate 60 60 55 L Respiratory Rate 22 H 20 Blood Pressure 138/57 L Pulse Oximetry 92 Oxygen Delivery Oxygen Flow Rate 03/01/25 20:05 03/01/25 20:12 03/01/25 22:00 Temperature Pulse Rate 55 L 67 60 Respiratory Rate 20 20 Blood Pressure Pulse Oximetry 95 Oxygen Delivery High Flow Nasal Cannula Oxygen Flow Rate 5 03/01/25 22:48 03/02/25 00:00 03/02/25 00:00 Temperature 98.5 F Pulse Rate 60 57 L 55 L Respiratory Rate 20 Blood Pressure 147/66 H Pulse Oximetry 96 95 Oxygen Delivery CPAP Oxygen Flow Rate 03/02/25 01:43 03/02/25 01:45 03/02/25 01:53 Temperature Pulse Rate 62 63 57 L Respiratory Rate 20 20 Blood Pressure Pulse Oximetry 96 Oxygen Delivery CPAP Oxygen Flow Rate 03/02/25 02:00 03/02/25 04:00 03/02/25 04:00 Temperature 97.4 F L Pulse Rate 99 124 H 111 H Respiratory Rate 20 Blood Pressure 137/96 H Pulse Oximetry 90 Oxygen Delivery Oxygen Flow Rate 03/02/25 04:56 03/02/25 06:00 03/02/25 07:23 Temperature Pulse Rate 67 92 66 Respiratory Rate 20 Blood Pressure Pulse Oximetry 90 Oxygen Delivery CPAP Oxygen Flow Rate 03/02/25 07:34 03/02/25 07:55 03/02/25 08:00 Temperature 98.6 F Pulse Rate 67 131 H Respiratory Rate 20 26 H Blood Pressure 153/91 H Pulse Oximetry 97 95 Oxygen Delivery High Flow Nasal Cannula Oxygen Flow Rate 5 03/02/25 09:14 03/02/25 12:00 Temperature 98.2 F Pulse Rate 101 H 111 H Respiratory Rate 27 H Blood Pressure 105/52 L Pulse Oximetry 99 Oxygen Delivery Oxygen Flow Rate Intake/Output Intake/Output: Intake & Output 02/27/25 02/28/25 03/01/25 03/02/25 23:59 23:59 23:59 23:59 Intake Total 1520 2390 680 540 Output Total 1400 3000 5200 140 Balance 455 -760 -9742 400 Meds/Results Medications: Active Medications Generic Name Dose Route Start Last Admin Trade Name Freq PRN Reason Stop Dose Admin Acetaminophen 650 mg 02/25/25 02:42 Acetaminophen 325 Mg Tablet PO Q4H PRN Mild Pain (1-3) or Fever Albuterol 2.5 mg 02/25/25 15:24 Albuterol Sulfate Neb 2.5 Mg/3 Ml Inh INHALATION Q6HRT PRN Shortness Of Breath Or Wheezing Albuterol/Ipratropium 3 ml 02/25/25 08:00 03/02/25 07:23 Ipratropium 0.5 Mg/Albuterol Sulfate 2.5 Mg (Base) Ampul.Neb 3 Ml INHALATION 3 ml Q6HRT VIN Administration Amlodipine Besylate 10 mg 02/26/25 09:00 03/02/25 09:15 Amlodipine Besylate 10 Mg Tablet PO 10 mg DAILY VIN Administration Benzonatate 200 mg 02/27/25 22:00 03/02/25 05:56 Benzonatate 100 Mg Capsule PO 200 mg Q8HR VIN Administration Diclofenac Sodium 0 applic 02/25/25 15:24 Diclofenac Sodium 1% 100 Gm Gel (*Bkc) TOPICAL QID PRN JOINT PAIN Docusate Sodium 100 mg 02/25/25 21:00 03/02/25 09:16 Docusate Sodium 100 Mg Capsule PO 100 mg Q12HR VIN Administration Donepezil HCl 5 mg 02/25/25 21:00 03/01/25 20:34 Donepezil Hcl 5 Mg Tablet PO 5 mg QHS VIN Administration Enoxaparin Sodium 40 mg 03/01/25 09:00 03/02/25 09:16 Enoxaparin 40 Mg/0.4 Ml Syringe SUB-Q 40 mg DAILY VIN Administration Fish Oil 1 gm 02/26/25 09:00 03/02/25 09:15 [place] 3 Polyunsat Fatty Acids 1 Gm Cap PO 1 gm DAILY VIN Administration Fluoxetine HCl 20 mg 02/25/25 22:00 03/02/25 05:56 Fluoxetine Hcl 20 Mg Capsule PO 20 mg Q8HR VIN Administration Folic Acid 1 mg 02/26/25 09:00 03/02/25 09:15 Folic Acid 1 Mg Tablet PO 1 mg DAILY VIN Administration Furosemide 40 mg 03/01/25 09:00 03/02/25 09:13 Furosemide Inj 40 Mg/4 Ml Vial IV PUSH 40 mg BID VIN Administration Gabapentin 300 mg 02/25/25 15:35 03/01/25 05:29 Gabapentin 300 Mg Capsule PO 300 mg On Hold: 03/01/25 13:41 Q8HR VIN Administration Guaifenesin 1,200 mg 02/25/25 21:00 03/02/25 09:16 Guaifenesin 12 Hr 600 Mg Tabcr PO 1,200 mg Q12HR VIN Administration Cefepime HCl 2 gm/ Sodium 50 mls @ 100 mls/hr 02/25/25 17:00 03/02/25 05:09 Chloride IVPB 100 mls/hr Q12H VIN Administration Doxycycline Hyclate 100 mg/ 100 mls @ 100 mls/hr 03/02/25 09:00 03/02/25 09:14 Sodium Chloride IVPB 100 mls/hr Q12HR VIN Administration Magnesium Sulfate 4 gm in 100 mls @ 25 mls/hr 03/02/25 09:39 Magnesium Sulf 4 Gm/[id number] IVPB 03/02/25 13:38 ONCE ONE Levothyroxine Sodium 150 mcg 02/26/25 06:30 03/02/25 05:57 Levothyroxine Sodium 150 Mcg Tablet PO 150 mcg DAILY@0630 VIN Administration Lidocaine 1 patch 02/26/25 09:00 03/02/25 09:16 Lidocaine 5% Patch TRANSDERM 1 patch DAILY VIN Administration Loratadine 10 mg 02/25/25 15:24 Loratadine 10 Mg Tablet PO DAILY PRN allergy symptoms Lorazepam 2 mg 02/26/25 23:03 03/02/25 04:00 Lorazepam (*Crx) 1 Mg Tablet PO 2 mg Q4H PRN Administration Anxiety Metoprolol Succinate 50 mg 03/03/25 09:00 Metoprolol Succinate Ext Rel 50 Mg Tabcr PO QAM VIN Montelukast Sodium 10 mg 02/26/25 09:00 03/02/25 09:15 Montelukast Sodium 10 Mg Tablet PO 10 mg DAILY VIN Administration Ondansetron HCl 4 mg 02/25/25 02:42 Ondansetron Inj 4 Mg/2 Ml Vial IV PUSH Q4H PRN Nausea Pantoprazole Sodium 40 mg 02/25/25 21:00 03/02/25 09:15 Pantoprazole 40 Mg Tablet PO 40 mg Q12HR VIN Administration Potassium Chloride 20 meq 03/02/25 09:40 Potassium Chloride 20 Meq Er Tablet PO BID VIN Pravastatin Sodium 40 mg 02/26/25 09:00 03/02/25 09:15 Pravastatin Sodium 20 Mg Tablet PO 40 mg DAILY VIN Administration Sodium Chloride 500 mg 02/28/25 09:00 03/02/25 09:14 Sodium Chloride 500 Mg Tablet PO 500 mg QAM VIN Administration Spironolactone 25 mg 02/26/25 09:00 03/02/25 09:15 Spironolactone 25 Mg Tablet PO 25 mg DAILY VIN Administration Telmisartan 40 mg 02/25/25 21:00 03/02/25 09:15 Telmisartan 40 Mg Tablet PO 40 mg Q12HR VIN Administration Vitamin D 50 mcg 02/26/25 09:00 03/02/25 09:15 Cholecalciferol (Vitamin D3) 25 Mcg (1,000 Units) Tablet PO 50 mcg DAILY VIN Administration Radiology Results: ITS Impressions Modified Barium Swallow 02/27/25 12:16 IMPRESSION: Laryngeal penetration without aspiration. Please correlate with speech pathologist findings and specific feeding recommendations. Chest CTA 02/27/25 13:55 IMPRESSION: 1. No PE. 2. Acute scattered bilateral pneumonitis. Chest X-Ray 03/01/25 08:10 IMPRESSION: 1. Unchanged scattered bilateral airspace opacities which could represent pneumonia or pulmonary edema. 2. Cardiomegaly. Head CT 03/02/25 11:10 IMPRESSION: 1. No acute intracranial findings. Labs Labs: Laboratory Results - last 24 hr 02/27/25 03/02/25 13:33 04:04 WBC 11.6 H RBC 2.99 L Hgb 9.4 L Hct 28.2 L MCV 94.3 MCH 31.4 MCHC 33.3 RDW 14.6 H Plt Count 134 L MPV 11.2 H Immature Gran % (Auto) Not Reportable Neut % (Auto) Not Reportable Lymph % (Auto) Not Reportable [place] % (Auto) Not Reportable Eos % (Auto) Not Reportable Baso % (Auto) Not Reportable Lymph # (Auto) Not Reportable [place] # (Auto) Not Reportable Eos # (Auto) Not Reportable Baso # (Auto) Not Reportable Abs Immat Gran (auto) Not Reportable Absolute Neuts (auto) Not Reportable Absolute Nucleated RBC Not Reportable Total Counted 100 Neutrophils % (Manual) 75 H Band Neutrophils % 2 Lymphocytes % (Manual) 17.0 L Monocytes % (Manual) 5 Eosinophils % (Manual) 1 Nucleated RBC % Not Reportable Abs Neuts (Manual) 8.93 H Abs Lymphs (Manual) 1.97 Abs Monocytes (Manual) 0.58 Absolute Eos (Manual) 0.11 Smudge Cells Present Platelet Estimate Decreased % Immature Plt Fraction 6.7 Hypochromasia 1+ Poikilocytosis 1+ Anisocytosis 1+ Ovalocytes 1+ Schistocytes None seen Sodium 133 L Potassium 3.2 L Chloride 94 L Carbon Dioxide 32 H Anion Gap 7 BUN 17 Creatinine 0.76 Estim Creat Clear Calc 60 Estimated GFR > 60 Glucose 91 Calcium 10.6 H Magnesium 1.1 L Total Bilirubin 2.5 H AST 29 ALT 33 Alkaline Phosphatase 88 Total Protein 7.1 Albumin 4.2 Chlamy pneumoniae PCR Not detected Adenovirus (PCR) Not detected B. pertussis DNA (PCR) Not detected B.parapertussis DNA PCR Not detected Coronavirus OC43 (PCR) Not detected Coronavirus HKU1 (PCR) Not detected Coronavirus 229E (PCR) Not detected Coronavirus NL63 (PCR) Not detected Human Metapneumovir PCR Not detected Influenza A (H1) PCR Not detected Influ A (H1/09) PCR Not detected Influenza A (H3) PCR Not detected Influenza Type A (PCR) Not detected Influenza Type B (PCR) Not detected M. pneumoniae (PCR) Not detected Parainfluenza 1 (PCR) Not detected Parainfluenza 2 (PCR) Not detected Parainfluenza 3 (PCR) Not detected Parainfluenza 4 (PCR) Not detected RSV (PCR) Not detected Entero/Rhino (PCR) Not detected SARS-CoV-2 (PCR) Not detected
[2025-03-02] MEDS: ACETAMINOPHEN 325 MG TABLET 650 MG PO ×2 (12:42→17:43)
[2025-03-02] MEDS: POTASSIUM CHLORIDE 20 MEQ ER TABLET PO ×2 (12:42→17:37)
[2025-03-02] MEDS: MAGNESIUM SULF 4 GM/WATER100ML 4 GM/100 ML BAG IVPB (12:42)
--- NOTE | 2025-03-02 14:38 | P.PNNP_ITS ---
Progress Note: A&P Assessment and Plan (1) Hyponatremia: Code(s): E87.1 - Hypo-osmolality and hyponatremia Status: Acute Assessment and Plan: * resolving if not resolved * acute on chronic * sodium runs in the high 120s to low 130s since 2021 * evaluation to date noted: * no evidence of cancer/malignancy * head CT negative * CXRs with interstitial fibrosis and COPD * cortisol was low but on methylprednisolone - retest this down the line after she is off the steroids... * TSH is okay * SSRI (fluoxetine) use * serum & urine osmolality and SPEP/UPEP pending * suspect due to a combination of lung disease + SSRI use (fluoxetine) * corrected at a appropriate rate without any specific intervention (other than holding loop diuretics) * if necessary or sdoium drops again, can re-start/resume fluid restriction * follow trend of sodium (2) CHF (congestive heart failure): Code(s): I50.9 - Heart failure, unspecified Status: Acute Assessment and Plan: * known history of diastolic dysfunction * Cardiology following * she should get a salt tablet with each dose of loop diuretics to keep the sodium from dropping (3) Interstitial lung disease: Code(s): J84.9 - Interstitial pulmonary disease, unspecified Status: Chronic Assessment and Plan: * Pulmonary recommendations noted * continue supportive therapy (4) Hypertension: Qualifiers: Hypertension type: primary hypertension Qualified Code(s): I10 - Essential (primary) hypertension Code(s): I10 - Essential (primary) hypertension Status: Chronic Assessment and Plan: * reasonable control * follow trend of hemodynamics Not much else to add -- will follow from a distance. L Subjective Date/time seen: 03/02/25 14:38 Interval history: Follow-up for acute on chronic hyponatremia. Sodium remains relatively stable since I last saw her; no acute complaints voiced at the time of my visit; remains on significant oxygen support but denies any acute shortness of breath at the time of my visit; no other issues/events overnight or earlier this morning. Exam 2 Narrative: General: elderly but WD/WN female in NAD Heart: normal S1 and S2; no rub Lungs: decreased at bases Abdomen: soft, nontender, nondistended, positive bowel sounds Extremities: no cyanosis or clubbing; trace edema Skin: warm and intact Objective Data Vital Signs Vital Signs: Vital Signs Temp Pulse Resp BP Pulse Ox O2 Del Method O2 Flow Rate 03/02/25 13:57 73 16 03/02/25 13:45 73 16 03/02/25 12:00 94 High Flow Nasal Cannula 5 03/02/25 12:00 94 03/02/25 12:00 98.2 F 111 H 27 H 105/52 L 99 03/02/25 10:00 100 03/02/25 09:14 101 H 03/02/25 08:00 95 High Flow Nasal Cannula 5 03/02/25 08:00 110 H 03/02/25 08:00 98.6 F 131 H 26 H 153/91 H 95 03/02/25 07:55 97 High Flow Nasal Cannula 5 03/02/25 07:34 67 20 03/02/25 07:23 66 20 03/02/25 06:00 92 03/02/25 04:56 67 90 CPAP 03/02/25 04:00 111 H 03/02/25 04:00 97.4 F L 124 H 20 137/96 H 90 03/02/25 02:00 99 03/02/25 01:53 57 L 20 03/02/25 01:45 63 96 CPAP 03/02/25 01:43 62 20 03/02/25 00:00 55 L 03/02/25 00:00 98.5 F 57 L 20 147/66 H 95 03/01/25 22:48 60 96 CPAP 03/01/25 22:00 60 03/01/25 20:12 67 20 03/01/25 20:05 55 L 20 95 High Flow Nasal Cannula 5 03/01/25 20:03 55 L 20 Intake/Output Intake/Output: Intake & Output 02/27/25 02/28/25 03/01/25 03/02/25 23:59 23:59 23:59 23:59 Intake Total 1520 2390 680 1320 Output Total 1400 3000 5200 640 Balance 609 -764 -7169 680 Meds/Results Medications: Active Medications Generic Name Dose Route Start Last Admin Trade Name Freq PRN Reason Stop Dose Admin Acetaminophen 650 mg 02/25/25 02:42 03/02/25 17:43 Acetaminophen 325 Mg Tablet PO 650 mg Q4H PRN Administration Mild Pain (1-3) or Fever Albuterol 2.5 mg 02/25/25 15:24 Albuterol Sulfate Neb 2.5 Mg/3 Ml Inh INHALATION Q6HRT PRN Shortness Of Breath Or Wheezing Albuterol/Ipratropium 3 ml 02/25/25 08:00 03/02/25 13:44 Ipratropium 0.5 Mg/Albuterol Sulfate 2.5 Mg (Base) Ampul.Neb 3 Ml INHALATION 3 ml Q6HRT VIN Administration Amlodipine Besylate 10 mg 02/26/25 09:00 03/02/25 09:15 Amlodipine Besylate 10 Mg Tablet PO 10 mg DAILY VIN Administration Benzonatate 200 mg 02/27/25 22:00 03/02/25 12:45 Benzonatate 100 Mg Capsule PO 200 mg Q8HR VIN Administration Diclofenac Sodium 0 applic 02/25/25 15:24 Diclofenac Sodium 1% 100 Gm Gel (*Bkc) TOPICAL QID PRN JOINT PAIN Docusate Sodium 100 mg 02/25/25 21:00 03/02/25 09:16 Docusate Sodium 100 Mg Capsule PO 100 mg Q12HR VIN Administration Donepezil HCl 5 mg 02/25/25 21:00 03/01/25 20:34 Donepezil Hcl 5 Mg Tablet PO 5 mg QHS VIN Administration Enoxaparin Sodium 40 mg 03/01/25 09:00 03/02/25 09:16 Enoxaparin 40 Mg/0.4 Ml Syringe SUB-Q 40 mg DAILY VIN Administration Fish Oil 1 gm 02/26/25 09:00 03/02/25 09:15 [place] 3 Polyunsat Fatty Acids 1 Gm Cap PO 1 gm DAILY VIN Administration Fluoxetine HCl 20 mg 02/25/25 22:00 03/02/25 12:45 Fluoxetine Hcl 20 Mg Capsule PO 20 mg Q8HR VIN Administration Folic Acid 1 mg 02/26/25 09:00 03/02/25 09:15 Folic Acid 1 Mg Tablet PO 1 mg DAILY VIN Administration Furosemide 40 mg 03/01/25 09:00 03/02/25 17:39 Furosemide Inj 40 Mg/4 Ml Vial IV PUSH 40 mg BID VIN Administration Gabapentin 300 mg 02/25/25 15:35 03/01/25 05:29 Gabapentin 300 Mg Capsule PO 300 mg On Hold: 03/01/25 13:41 Q8HR VIN Administration Guaifenesin 1,200 mg 02/25/25 21:00 03/02/25 09:16 Guaifenesin 12 Hr 600 Mg Tabcr PO 1,200 mg Q12HR VIN Administration Cefepime HCl 2 gm/ Sodium 50 mls @ 100 mls/hr 02/25/25 17:00 03/02/25 18:07 Chloride IVPB Infused Q12H VIN Infusion Doxycycline Hyclate 100 mg/ 100 mls @ 100 mls/hr 03/02/25 09:00 03/02/25 10:14 Sodium Chloride IVPB Infused Q12HR VIN Infusion Levothyroxine Sodium 150 mcg 02/26/25 06:30 03/02/25 05:57 Levothyroxine Sodium 150 Mcg Tablet PO 150 mcg DAILY@0630 VIN Administration Lidocaine 1 patch 02/26/25 09:00 03/02/25 09:16 Lidocaine 5% Patch TRANSDERM 1 patch DAILY VIN Administration Loratadine 10 mg 02/25/25 15:24 Loratadine 10 Mg Tablet PO DAILY PRN allergy symptoms Lorazepam 2 mg 02/26/25 23:03 03/02/25 04:00 Lorazepam (*Crx) 1 Mg Tablet PO 2 mg Q4H PRN Administration Anxiety Metoprolol Succinate 50 mg 03/03/25 09:00 Metoprolol Succinate Ext Rel 50 Mg Tabcr PO QAM VIN Montelukast Sodium 10 mg 02/26/25 09:00 03/02/25 09:15 Montelukast Sodium 10 Mg Tablet PO 10 mg DAILY VIN Administration Ondansetron HCl 4 mg 02/25/25 02:42 Ondansetron Inj 4 Mg/2 Ml Vial IV PUSH Q4H PRN Nausea Pantoprazole Sodium 40 mg 02/25/25 21:00 03/02/25 09:15 Pantoprazole 40 Mg Tablet PO 40 mg Q12HR VIN Administration Potassium Chloride 20 meq 03/02/25 09:40 03/02/25 17:37 Potassium Chloride 20 Meq Er Tablet PO 20 meq BID VIN Administration Pravastatin Sodium 40 mg 02/26/25 09:00 03/02/25 09:15 Pravastatin Sodium 20 Mg Tablet PO 40 mg DAILY VIN Administration Sodium Chloride 500 mg 02/28/25 09:00 03/02/25 09:14 Sodium Chloride 500 Mg Tablet PO 500 mg QAM VIN Administration Spironolactone 25 mg 02/26/25 09:00 03/02/25 09:15 Spironolactone 25 Mg Tablet PO 25 mg DAILY VIN Administration Telmisartan 40 mg 02/25/25 21:00 03/02/25 09:15 Telmisartan 40 Mg Tablet PO 40 mg Q12HR VIN Administration Vitamin D 50 mcg 02/26/25 09:00 03/02/25 09:15 Cholecalciferol (Vitamin D3) 25 Mcg (1,000 Units) Tablet PO 50 mcg DAILY VIN Administration Radiology Results: ITS Impressions Modified Barium Swallow 02/27/25 12:16 IMPRESSION: Laryngeal penetration without aspiration. Please correlate with speech pathologist findings and specific feeding recommendations. Chest CTA 02/27/25 13:55 IMPRESSION: 1. No PE. 2. Acute scattered bilateral pneumonitis. Chest X-Ray 03/01/25 08:10 IMPRESSION: 1. Unchanged scattered bilateral airspace opacities which could represent pneumonia or pulmonary edema. 2. Cardiomegaly. Head CT 03/02/25 11:10 IMPRESSION: 1. No acute intracranial findings. Labs Labs: Laboratory Tests 03/02/25 04:04 03/02/25 04:04 Magnesium 1.1 L Total Bilirubin 2.5 H AST 29 ALT 33 Alkaline Phosphatase 88 Total Protein 7.1 Albumin 4.2 Microbiology 02/25/25 21:28 Sputum Sputum White Blood Cells - Final 02/25/25 21:28 Sputum Sputum Epithelial Cells - Final 02/25/25 21:28 Sputum Gram Stain Sputum Result 1 - Preliminary 02/25/25 21:28 Sputum Gram Stain Sputum Result 2 - Final 02/25/25 21:28 Sputum Gram Stain Sputum Result 3 - Final 02/25/25 21:28 Sputum Gram Stain Sputum Result 4 - Final 02/25/25 21:28 Sputum Gram Stain Evaluation - Final 02/25/25 21:28 Sputum Sputum Culture - Final 02/27/25 13:33 Urine - Clean Catch Midstream Specimen Source - Final 02/27/25 13:33 Urine - Clean Catch Midstream Streptococcus pneumoniae Ag Screen - Final 02/27/25 13:33 Urine - Clean Catch Midstream Sterile Body Fluid Culture - Final 02/27/25 13:33 Urine - Clean Catch Midstream Organism Identification - Final 02/27/25 13:33 Urine - Clean Catch Midstream Microbiology Comment - Final 02/27/25 13:33 Urine - Clean Catch Midstream Legionella pneumophila Serogrp 1 Ag - Final
[2025-03-02] MEDS: DONEPEZIL HCL 5 MG TABLET PO (21:17)
[2025-03-03] VITALS (24 sets, daily range): BP systolic 102–133; BP diastolic 50–90; PULSE 72–110; RESP 2–20; TEMP 36.3–37.3; O2SAT 91–100
[2025-03-03] MEDS: IPRATROPIUM 0.5 MG/ALBUTEROL SULFATE 2.5 MG (BASE) AMPUL.NEB 3 ML INHALATION ×4 (02:31→20:05)
[2025-03-03 03:53] LABS: Hematocrit 27.2 % (37.0-47.0); Hemoglobin 9.0 g/dL (12.0-15.0); Immature Platelet Fraction Pct 7.4 % (0.9-11.2); Mean Corpuscular HGB Conc 33.1 g/dl (32-36); Mean Corpuscular Hemoglobin 31.5 pg (26-34); Mean Corpuscular Volume 95.1 fl (80-100); Platelet Count Result 124 k/mm3 (150-375); Red Blood Count 2.86 M/mm3 (4.2-5.4); White Blood Count 9.9 K/mm3 (4.5-10.0)
[2025-03-03 04:23] LABS: Alanine Aminotransferase 33 U/L (6-35); Albumin Level 3.7 g/dL (3.5-5.1); Alkaline Phosphatase 79 U/L (38-126); Anion Gap 4 mmol/L (4-12); Aspartate Amino Transferase 25 U/L (14-36); Bilirubin,Total 1.7 mg/dL (0.2-1.3); Blood Urea Nitrogen 19 mg/dL (7-17); Calcium 9.7 mg/dL (8.4-10.2); Carbon Dioxide 33 mmol/L (22-30); Chloride 95 mmol/L (98-107); Estimated CRCL calculation 56 ml/min; Estimated Glomerular Filt Rate > 60; Glucose 114 mg/dL (65-110); Magnesium 1.6 mg/dL (1.6-2.3); NT Pro B Type Natriuretic Pept 9680 pg/mL (19.9-100); Potassium 3.2 mmol/L (3.4-5.0); Sodium 132 mmol/L (137-145); Total Protein 6.4 g/dL (6.3-8.2)
[2025-03-03 04:40] LABS: Band Neutrophils Percent 9 % (0-6); Lymphocytes Absolute Manual 2.17 K/mm3 (1.1-4.5); Lymphocytes Percent Manual 22.0 % (18-44); Monocytes Absolute Manual 0.99 K/mm3 (0.1-0.90); Monocytes Percent Manual 10 % (3-9); Neutrophils Absolute Manual 6.73 K/mm3 (1.3-6.7); Neutrophils Percent Manual 59 % (46-73); Total Cells Counted 100
[2025-03-03 04:41] LABS: Anisocytosis 1+; Ovalocytes 1+; Poikilocytosis 1+; Schistocytes None Seen; Smudge Cells PRESENT
[2025-03-03] MEDS: CEFEPIME 2 GM in SODIUM CHLORIDE 0.9% IV 50 ML 100 ML IVPB ×2 (06:01→18:23)
[2025-03-03] MEDS: LEVOTHYROXINE SODIUM 150 MCG TABLET PO (06:06)
[2025-03-03] MEDS: BENZONATATE 100 MG CAPSULE 200 MG PO ×3 (06:07→22:28)
[2025-03-03] MEDS: ENOXAPARIN 40 MG/0.4 ML SYRINGE SUB-Q (08:51)
[2025-03-03] MEDS: SPIRONOLACTONE 25 MG TABLET PO (08:51)
[2025-03-03] MEDS: DOCUSATE SODIUM 100 MG CAPSULE PO ×2 (08:51→22:35)
[2025-03-03] MEDS: TELMISARTAN 40 MG TABLET PO ×2 (08:51→22:28)
[2025-03-03] MEDS: guaiFENesin 12 HR 600 MG TABCR 1200 MG PO ×2 (08:51→22:28)
[2025-03-03] MEDS: POTASSIUM CHLORIDE 20 MEQ ER TABLET PO ×3 (08:51→18:24)
[2025-03-03] MEDS: CHOLECALCIFEROL (VITAMIN D3) 25 MCG (1,000 UNITS) TABLET 50 MCG PO (08:51)
[2025-03-03] MEDS: PRAVASTATIN SODIUM 20 MG TABLET 40 MG PO (08:52)
[2025-03-03] MEDS: METOPROLOL SUCCINATE EXT REL 50 MG TABCR PO (08:52)
[2025-03-03] MEDS: FOLIC ACID 1 MG TABLET PO (08:52)
[2025-03-03] MEDS: PANTOPRAZOLE 40 MG TABLET PO ×2 (08:52→22:28)
[2025-03-03] MEDS: MONTELUKAST SODIUM 10 MG TABLET PO (08:52)
[2025-03-03] MEDS: SODIUM CHLORIDE 500 MG TABLET PO (08:52)
[2025-03-03] MEDS: FUROSEMIDE INJ 40 MG/4 ML VIAL IV PUSH (08:52)
[2025-03-03] MEDS: OMEGA 3 POLYUNSAT FATTY ACIDS 1 GM CAP PO (08:52)
[2025-03-03] MEDS: LORATADINE 10 MG TABLET PO (08:52)
[2025-03-03] MEDS: ACETAMINOPHEN 325 MG TABLET 650 MG PO ×3 (08:52→18:24)
[2025-03-03] MEDS: DOXYCYCLINE IV 100 MG in SODIUM CHLORIDE 0.9% IV 100 ML IVPB ×2 (08:53→20:58)
[2025-03-03] MEDS: LIDOCAINE 5% PATCH 1 PATCH TRANSDERM (08:53)
--- NOTE | 2025-03-03 09:10 | PM.PNCARD ---
Progress Note: A&P Assessment and Plan (1) Atrial fibrillation: Code(s): I48.91 - Unspecified atrial fibrillation Status: Acute Plan 79-year-old lady with paroxysmal atrial fibrillation. Her heart rate is well controlled with metoprolol. She had been anticoagulated which is discontinued because of GI bleeding with which she presented to the hospital. Continue metoprolol and observation of telemetry. Tad Morales MD [facility] Subjective Date/time seen: Date of service: 03/03/25 09:10 Interval history: Patient is resting comfortably in the bedside chair. Nasal cannula oxygen placed. Patient back in atrial fibrillation this morning heart rate is in the 90s to low 100s. She is unaware of this. No symptoms of palpitations or awareness of her arrhythmia. 03/03/2025: Patient is confused somewhat encephalopathic but comfortable this morning. She seems to be pleasantly confused. The AFib persists heart rate is well controlled with metoprolol Exam Const: General: comfortable, no acute distress, alert and awake Other: Elderly lady who is confused according to staff has significant baseline dementia. HENMT: Head: normal to inspection Mouth: Yes moist mucous membranes Eyes: General: appearance normal, both eyes and all related structures Pupils: Equal, round and reactive pupils present EOM: EOMs intact bilaterally Neck: Neck: normal visual inspection, supple and no JVD Carotids: normal carotid upstroke Resp: Effort & Inspection: normal respiratory effort Auscultation: rales, rhonchi and wheezes Cardio: Rate: regular rate Rhythm: abnormal rhythm irregularly irregular Heart sounds: S1 normal heart sound present, S2 normal heart sound present and Murmur heart sound present GI: Auscultation: normal bowel sounds Skin: General skin exam: normal color Neuro: General: patient oriented x3 Cranial nerves: Yes Equal, round and reactive pupils present Extrem: General: edema and pedal edema Other: trace bilateral pretibial edema Psych: Appearance: grossly normal Mental Status: mental status grossly abnormal Objective Data Vital Signs Vital Signs: Vital Signs - 24 hr 03/02/25 09:14 03/02/25 10:00 03/02/25 12:00 Temperature 36.8 C Pulse Rate 101 H 100 111 H Respiratory Rate 27 H Blood Pressure 105/52 L Pulse Oximetry 99 Oxygen Delivery Oxygen Flow Rate 03/02/25 12:00 03/02/25 12:00 03/02/25 13:45 Temperature Pulse Rate 94 73 Respiratory Rate 16 Blood Pressure Pulse Oximetry 94 Oxygen Delivery High Flow Nasal Cannula Oxygen Flow Rate 5 03/02/25 13:57 03/02/25 14:00 03/02/25 16:00 Temperature 37.0 C Pulse Rate 73 79 87 Respiratory Rate 16 23 H Blood Pressure 111/57 L Pulse Oximetry 100 Oxygen Delivery Oxygen Flow Rate 03/02/25 16:00 03/02/25 16:00 03/02/25 18:00 Temperature Pulse Rate 86 84 Respiratory Rate Blood Pressure Pulse Oximetry 96 Oxygen Delivery High Flow Nasal Cannula Oxygen Flow Rate 5 03/02/25 20:00 03/02/25 20:00 03/02/25 20:00 Temperature 36.9 C Pulse Rate 77 78 Respiratory Rate 18 Blood Pressure 99/51 L Pulse Oximetry 98 98 Oxygen Delivery High Flow Nasal Cannula Oxygen Flow Rate 4 03/02/25 20:40 03/02/25 20:40 03/02/25 20:47 Temperature Pulse Rate 78 78 75 Respiratory Rate 18 18 Blood Pressure Pulse Oximetry 98 Oxygen Delivery High Flow Nasal Cannula Oxygen Flow Rate 5 03/02/25 22:00 03/02/25 22:36 03/02/25 23:59 Temperature 36.7 C Pulse Rate 79 75 83 Respiratory Rate 20 Blood Pressure 100/63 Pulse Oximetry 97 91 Oxygen Delivery CPAP Oxygen Flow Rate 03/03/25 00:00 03/03/25 00:00 03/03/25 02:00 Temperature Pulse Rate 82 76 Respiratory Rate Blood Pressure Pulse Oximetry 91 Oxygen Delivery CPAP Oxygen Flow Rate 03/03/25 02:31 03/03/25 02:33 03/03/25 02:36 Temperature Pulse Rate 79 79 72 Respiratory Rate 18 18 Blood Pressure Pulse Oximetry 94 Oxygen Delivery CPAP Oxygen Flow Rate 03/03/25 04:00 03/03/25 04:00 03/03/25 04:00 Temperature 36.3 C L Pulse Rate 92 76 Respiratory Rate 2 L Blood Pressure 133/67 Pulse Oximetry 95 91 Oxygen Delivery CPAP Oxygen Flow Rate 03/03/25 06:00 03/03/25 07:24 03/03/25 07:24 Temperature Pulse Rate 78 87 Respiratory Rate 20 Blood Pressure Pulse Oximetry 95 Oxygen Delivery High Flow Nasal Cannula Oxygen Flow Rate 5 03/03/25 07:31 03/03/25 08:52 Temperature Pulse Rate 88 90 Respiratory Rate 20 Blood Pressure Pulse Oximetry Oxygen Delivery Oxygen Flow Rate Intake/Output Intake/Output: Intake & Output 02/28/25 03/01/25 03/02/25 03/03/25 23:59 23:59 23:59 23:59 Intake Total 2390 680 1420 248.3 Output Total 3000 5200 640 500 Balance -610 4535 780 -251.7 Meds/Results Medications: Active Medications Generic Name Dose Route Start Last Admin Trade Name Freq PRN Reason Stop Dose Admin Acetaminophen 650 mg 02/25/25 02:42 03/03/25 08:52 Acetaminophen 325 Mg Tablet PO 650 mg Q4H PRN Administration Mild Pain (1-3) or Fever Albuterol 2.5 mg 02/25/25 15:24 Albuterol Sulfate Neb 2.5 Mg/3 Ml Inh INHALATION Q6HRT PRN Shortness Of Breath Or Wheezing Albuterol/Ipratropium 3 ml 02/25/25 08:00 03/03/25 07:22 Ipratropium 0.5 Mg/Albuterol Sulfate 2.5 Mg (Base) Ampul.Neb 3 Ml INHALATION 3 ml Q6HRT VIN Administration Amlodipine Besylate 10 mg 02/26/25 09:00 03/03/25 08:52 Amlodipine Besylate 10 Mg Tablet PO 10 mg DAILY VIN Administration Benzonatate 200 mg 02/27/25 22:00 03/03/25 06:07 Benzonatate 100 Mg Capsule PO 200 mg Q8HR VIN Administration Diclofenac Sodium 0 applic 02/25/25 15:24 Diclofenac Sodium 1% 100 Gm Gel (*Bkc) TOPICAL QID PRN JOINT PAIN Docusate Sodium 100 mg 02/25/25 21:00 03/03/25 08:51 Docusate Sodium 100 Mg Capsule PO 100 mg Q12HR VIN Administration Donepezil HCl 5 mg 02/25/25 21:00 03/02/25 21:17 Donepezil Hcl 5 Mg Tablet PO 5 mg QHS VIN Administration Enoxaparin Sodium 40 mg 03/01/25 09:00 03/03/25 08:51 Enoxaparin 40 Mg/0.4 Ml Syringe SUB-Q 40 mg DAILY VIN Administration Fish Oil 1 gm 02/26/25 09:00 03/03/25 08:52 [place] 3 Polyunsat Fatty Acids 1 Gm Cap PO 1 gm DAILY VIN Administration Fluoxetine HCl 20 mg 02/25/25 22:00 03/03/25 06:07 Fluoxetine Hcl 20 Mg Capsule PO 20 mg Q8HR VIN Administration Folic Acid 1 mg 02/26/25 09:00 03/03/25 08:52 Folic Acid 1 Mg Tablet PO 1 mg DAILY VIN Administration Furosemide 40 mg 03/01/25 09:00 03/03/25 08:52 Furosemide Inj 40 Mg/4 Ml Vial IV PUSH 40 mg BID VIN Administration Gabapentin 300 mg 02/25/25 15:35 03/01/25 05:29 Gabapentin 300 Mg Capsule PO 300 mg On Hold: 03/01/25 13:41 Q8HR VIN Administration Guaifenesin 1,200 mg 02/25/25 21:00 03/03/25 08:51 Guaifenesin 12 Hr 600 Mg Tabcr PO 1,200 mg Q12HR VIN Administration Cefepime HCl 2 gm/ Sodium 50 mls @ 100 mls/hr 02/25/25 17:00 03/03/25 06:30 Chloride IVPB 0 mls/hr Q12H VIN Infusion Doxycycline Hyclate 100 mg/ 100 mls @ 100 mls/hr 03/02/25 09:00 03/03/25 08:53 Sodium Chloride IVPB 100 mls/hr Q12HR VIN Administration Levothyroxine Sodium 150 mcg 02/26/25 06:30 03/03/25 06:06 Levothyroxine Sodium 150 Mcg Tablet PO 150 mcg DAILY@0630 VIN Administration Lidocaine 1 patch 02/26/25 09:00 03/03/25 08:53 Lidocaine 5% Patch TRANSDERM 1 patch DAILY VIN Administration Loratadine 10 mg 02/25/25 15:24 03/03/25 08:52 Loratadine 10 Mg Tablet PO 10 mg DAILY PRN Administration allergy symptoms Lorazepam 2 mg 02/26/25 23:03 03/02/25 04:00 Lorazepam (*Crx) 1 Mg Tablet PO 2 mg Q4H PRN Administration Anxiety Metoprolol Succinate 50 mg 03/03/25 09:00 03/03/25 08:52 Metoprolol Succinate Ext Rel 50 Mg Tabcr PO 50 mg QAM VIN Administration Montelukast Sodium 10 mg 02/26/25 09:00 03/03/25 08:52 Montelukast Sodium 10 Mg Tablet PO 10 mg DAILY VIN Administration Ondansetron HCl 4 mg 02/25/25 02:42 Ondansetron Inj 4 Mg/2 Ml Vial IV PUSH Q4H PRN Nausea Pantoprazole Sodium 40 mg 02/25/25 21:00 03/03/25 08:52 Pantoprazole 40 Mg Tablet PO 40 mg Q12HR VIN Administration Potassium Chloride 20 meq 03/02/25 09:40 03/03/25 08:51 Potassium Chloride 20 Meq Er Tablet PO 20 meq BID VIN Administration Pravastatin Sodium 40 mg 02/26/25 09:00 03/03/25 08:52 Pravastatin Sodium 20 Mg Tablet PO 40 mg DAILY VIN Administration Sodium Chloride 500 mg 02/28/25 09:00 03/03/25 08:52 Sodium Chloride 500 Mg Tablet PO 500 mg QAM VIN Administration Spironolactone 25 mg 02/26/25 09:00 03/03/25 08:51 Spironolactone 25 Mg Tablet PO 25 mg DAILY VIN Administration Telmisartan 40 mg 02/25/25 21:00 03/03/25 08:51 Telmisartan 40 Mg Tablet PO 40 mg Q12HR VIN Administration Vitamin D 50 mcg 02/26/25 09:00 03/03/25 08:51 Cholecalciferol (Vitamin D3) 25 Mcg (1,000 Units) Tablet PO 50 mcg DAILY VIN Administration Radiology Results: ITS Impressions Modified Barium Swallow 02/27/25 12:16 IMPRESSION: Laryngeal penetration without aspiration. Please correlate with speech pathologist findings and specific feeding recommendations. Chest CTA 02/27/25 13:55 IMPRESSION: 1. No PE. 2. Acute scattered bilateral pneumonitis. Chest X-Ray 03/01/25 08:10 IMPRESSION: 1. Unchanged scattered bilateral airspace opacities which could represent pneumonia or pulmonary edema. 2. Cardiomegaly. Head CT 03/02/25 11:10 IMPRESSION: 1. No acute intracranial findings. Labs Labs: Laboratory Results - last 24 hr 03/03/25 03:33 WBC 9.9 RBC 2.86 L Hgb 9.0 L Hct 27.2 L MCV 95.1 MCH 31.5 MCHC 33.1 RDW 14.5 Plt Count 124 L MPV 11.0 H Immature Gran % (Auto) Not Reportable Neut % (Auto) Not Reportable Lymph % (Auto) Not Reportable [place] % (Auto) Not Reportable Eos % (Auto) Not Reportable Baso % (Auto) Not Reportable Lymph # (Auto) Not Reportable [place] # (Auto) Not Reportable Eos # (Auto) Not Reportable Baso # (Auto) Not Reportable Abs Immat Gran (auto) Not Reportable Absolute Neuts (auto) Not Reportable Absolute Nucleated RBC Not Reportable Total Counted 100 Neutrophils % (Manual) 59 Band Neutrophils % 9 H Lymphocytes % (Manual) 22.0 Monocytes % (Manual) 10 H Nucleated RBC % Not Reportable Abs Neuts (Manual) 6.73 H Abs Lymphs (Manual) 2.17 Abs Monocytes (Manual) 0.99 H Smudge Cells Present Platelet Estimate Decreased Clumped Platelets Present Large Platelets Present % Immature Plt Fraction 7.4 Poikilocytosis 1+ Anisocytosis 1+ Ovalocytes 1+ Schistocytes None seen Sodium 132 L Potassium 3.2 L Chloride 95 L Carbon Dioxide 33 H Anion Gap 4 BUN 19 H Creatinine 0.82 Estim Creat Clear Calc 56 Estimated GFR > 60 Glucose 114 H Calcium 9.7 Magnesium 1.6 Total Bilirubin 1.7 H AST 25 ALT 33 Alkaline Phosphatase 79 NT-Pro-B Natriuret Pep 9680 H Total Protein 6.4 Albumin 3.7
--- NOTE | 2025-03-03 11:17 | P.PNGI_ITS ---
Progress Note: A&P Assessment and Plan (1) Hematochezia: Code(s): K92.1 - Melena Status: Acute (2) Anemia of chronic disease: Code(s): D63.8 - Anemia in other chronic diseases classified elsewhere Status: Acute Plan 79-year-old female with history of hematochezia. Patient had shortness of breath that has improved over the last 24 hours. There was no further GI bleed. Her hemoglobin level stable at 9.0. Plan 1. Of the CBC for tomorrow morning. 2. Regular diet. Time Spent With Patient Time with patient: 15 - 25 minutes (GI bleed.) Subjective Date/time seen: 03/03/25 11:17 Interval history: Patient feels better. No nausea vomiting. No abdominal pain. Noted active bleeding. Her respiratory status has improved. Review of Systems Review of Systems: 11 review of symptoms are negative except the ones mentioned in the H&P. All systems reviewed & are unremarkable except as noted in HPI and below (Subjective) Exam Const: General: comfortable, no acute distress, alert and awake Other: Elderly lady who is confused according to staff has significant baseline dementia. HENMT: Head: normal to inspection Mouth: Yes moist mucous membranes Eyes: General: appearance normal, both eyes and all related structures Pupils: Equal, round and reactive pupils present EOM: EOMs intact bilaterally Neck: Neck: normal visual inspection, supple and no JVD Carotids: normal carotid upstroke Resp: Effort & Inspection: normal respiratory effort Auscultation: rales, rhonchi and wheezes Cardio: Rate: regular rate Rhythm: abnormal rhythm irregularly irregular Heart sounds: S1 normal heart sound present, S2 normal heart sound present and Murmur heart sound present GI: Auscultation: normal bowel sounds Skin: General skin exam: normal color Neuro: General: patient oriented x3 Cranial nerves: Yes Equal, round and reactive pupils present Extrem: General: edema and pedal edema Other: trace bilateral pretibial edema Psych: Appearance: grossly normal Mental Status: mental status grossly abnormal Objective Data Vital Signs Vital Signs: Vital Signs - 24 hr 03/02/25 12:00 03/02/25 12:00 03/02/25 12:00 Temperature 98.2 F Pulse Rate 111 H 94 Respiratory Rate 27 H Blood Pressure 105/52 L Pulse Oximetry 99 94 Oxygen Delivery High Flow Nasal Cannula Oxygen Flow Rate 5 03/02/25 13:45 03/02/25 13:57 03/02/25 14:00 Temperature Pulse Rate 73 73 79 Respiratory Rate 16 16 Blood Pressure Pulse Oximetry Oxygen Delivery Oxygen Flow Rate 03/02/25 16:00 03/02/25 16:00 03/02/25 16:00 Temperature 98.6 F Pulse Rate 87 86 Respiratory Rate 23 H Blood Pressure 111/57 L Pulse Oximetry 100 96 Oxygen Delivery High Flow Nasal Cannula Oxygen Flow Rate 5 03/02/25 18:00 03/02/25 20:00 03/02/25 20:00 Temperature 98.5 F Pulse Rate 84 77 Respiratory Rate 18 Blood Pressure 99/51 L Pulse Oximetry 98 98 Oxygen Delivery High Flow Nasal Cannula Oxygen Flow Rate 4 03/02/25 20:00 03/02/25 20:40 03/02/25 20:40 Temperature Pulse Rate 78 78 78 Respiratory Rate 18 Blood Pressure Pulse Oximetry 98 Oxygen Delivery High Flow Nasal Cannula Oxygen Flow Rate 5 03/02/25 20:47 03/02/25 22:00 03/02/25 22:36 Temperature Pulse Rate 75 79 75 Respiratory Rate 18 Blood Pressure Pulse Oximetry 97 Oxygen Delivery CPAP Oxygen Flow Rate 03/02/25 23:59 03/03/25 00:00 03/03/25 00:00 Temperature 98.1 F Pulse Rate 83 82 Respiratory Rate 20 Blood Pressure 100/63 Pulse Oximetry 91 91 Oxygen Delivery CPAP Oxygen Flow Rate 03/03/25 02:00 03/03/25 02:31 03/03/25 02:33 Temperature Pulse Rate 76 79 79 Respiratory Rate 18 Blood Pressure Pulse Oximetry 94 Oxygen Delivery CPAP Oxygen Flow Rate 03/03/25 02:36 03/03/25 04:00 03/03/25 04:00 Temperature 97.4 F L Pulse Rate 72 92 Respiratory Rate 18 2 L Blood Pressure 133/67 Pulse Oximetry 95 91 Oxygen Delivery CPAP Oxygen Flow Rate 03/03/25 04:00 03/03/25 06:00 03/03/25 07:24 Temperature Pulse Rate 76 78 Respiratory Rate Blood Pressure Pulse Oximetry 95 Oxygen Delivery High Flow Nasal Cannula Oxygen Flow Rate 5 03/03/25 07:24 03/03/25 07:31 03/03/25 08:00 Temperature 97.7 F Pulse Rate 87 88 79 Respiratory Rate 20 20 16 Blood Pressure 102/59 L Pulse Oximetry 98 Oxygen Delivery Oxygen Flow Rate 03/03/25 08:52 Temperature Pulse Rate 90 Respiratory Rate Blood Pressure Pulse Oximetry Oxygen Delivery Oxygen Flow Rate Intake/Output Intake/Output: Intake & Output 02/28/25 03/01/25 03/02/25 03/03/25 23:59 23:59 23:59 23:59 Intake Total 2390 680 1420 488.3 Output Total 3000 5200 640 500 Balance -610 4524 780 -11.7 Meds/Results Medications: Active Medications Generic Name Dose Route Start Last Admin Trade Name Freq PRN Reason Stop Dose Admin Acetaminophen 650 mg 02/25/25 02:42 03/03/25 08:52 Acetaminophen 325 Mg Tablet PO 650 mg Q4H PRN Administration Mild Pain (1-3) or Fever Albuterol 2.5 mg 02/25/25 15:24 Albuterol Sulfate Neb 2.5 Mg/3 Ml Inh INHALATION Q6HRT PRN Shortness Of Breath Or Wheezing Albuterol/Ipratropium 3 ml 02/25/25 08:00 03/03/25 07:22 Ipratropium 0.5 Mg/Albuterol Sulfate 2.5 Mg (Base) Ampul.Neb 3 Ml INHALATION 3 ml Q6HRT VIN Administration Amlodipine Besylate 10 mg 02/26/25 09:00 03/03/25 08:52 Amlodipine Besylate 10 Mg Tablet PO 10 mg DAILY VIN Administration Benzonatate 200 mg 02/27/25 22:00 03/03/25 06:07 Benzonatate 100 Mg Capsule PO 200 mg Q8HR VIN Administration Diclofenac Sodium 0 applic 02/25/25 15:24 Diclofenac Sodium 1% 100 Gm Gel (*Bkc) TOPICAL QID PRN JOINT PAIN Docusate Sodium 100 mg 02/25/25 21:00 03/03/25 08:51 Docusate Sodium 100 Mg Capsule PO 100 mg Q12HR VIN Administration Donepezil HCl 5 mg 02/25/25 21:00 03/02/25 21:17 Donepezil Hcl 5 Mg Tablet PO 5 mg QHS VIN Administration Enoxaparin Sodium 40 mg 03/01/25 09:00 03/03/25 08:51 Enoxaparin 40 Mg/0.4 Ml Syringe SUB-Q 40 mg DAILY VIN Administration Fish Oil 1 gm 02/26/25 09:00 03/03/25 08:52 [place] 3 Polyunsat Fatty Acids 1 Gm Cap PO 1 gm DAILY VIN Administration Fluoxetine HCl 20 mg 02/25/25 22:00 03/03/25 06:07 Fluoxetine Hcl 20 Mg Capsule PO 20 mg Q8HR VIN Administration Folic Acid 1 mg 02/26/25 09:00 03/03/25 08:52 Folic Acid 1 Mg Tablet PO 1 mg DAILY VIN Administration Furosemide 40 mg 03/01/25 09:00 03/03/25 08:52 Furosemide Inj 40 Mg/4 Ml Vial IV PUSH 40 mg BID VIN Administration Gabapentin 300 mg 02/25/25 15:35 03/01/25 05:29 Gabapentin 300 Mg Capsule PO 300 mg On Hold: 03/01/25 13:41 Q8HR VIN Administration Guaifenesin 1,200 mg 02/25/25 21:00 03/03/25 08:51 Guaifenesin 12 Hr 600 Mg Tabcr PO 1,200 mg Q12HR VIN Administration Cefepime HCl 2 gm/ Sodium 50 mls @ 100 mls/hr 02/25/25 17:00 03/03/25 06:30 Chloride IVPB 0 mls/hr Q12H VIN Infusion Doxycycline Hyclate 100 mg/ 100 mls @ 100 mls/hr 03/02/25 09:00 03/03/25 08:53 Sodium Chloride IVPB 100 mls/hr Q12HR VIN Administration Levothyroxine Sodium 150 mcg 02/26/25 06:30 03/03/25 06:06 Levothyroxine Sodium 150 Mcg Tablet PO 150 mcg DAILY@0630 VIN Administration Lidocaine 1 patch 02/26/25 09:00 03/03/25 08:53 Lidocaine 5% Patch TRANSDERM 1 patch DAILY VIN Administration Loratadine 10 mg 02/25/25 15:24 03/03/25 08:52 Loratadine 10 Mg Tablet PO 10 mg DAILY PRN Administration allergy symptoms Lorazepam 2 mg 02/26/25 23:03 03/02/25 04:00 Lorazepam (*Crx) 1 Mg Tablet PO 2 mg Q4H PRN Administration Anxiety Metoprolol Succinate 50 mg 03/03/25 09:00 03/03/25 08:52 Metoprolol Succinate Ext Rel 50 Mg Tabcr PO 50 mg QAM VIN Administration Montelukast Sodium 10 mg 02/26/25 09:00 03/03/25 08:52 Montelukast Sodium 10 Mg Tablet PO 10 mg DAILY VIN Administration Ondansetron HCl 4 mg 02/25/25 02:42 Ondansetron Inj 4 Mg/2 Ml Vial IV PUSH Q4H PRN Nausea Pantoprazole Sodium 40 mg 02/25/25 21:00 03/03/25 08:52 Pantoprazole 40 Mg Tablet PO 40 mg Q12HR VIN Administration Potassium Chloride 20 meq 03/02/25 09:40 03/03/25 08:51 Potassium Chloride 20 Meq Er Tablet PO 20 meq BID VIN Administration Pravastatin Sodium 40 mg 02/26/25 09:00 03/03/25 08:52 Pravastatin Sodium 20 Mg Tablet PO 40 mg DAILY VIN Administration Sodium Chloride 500 mg 02/28/25 09:00 03/03/25 08:52 Sodium Chloride 500 Mg Tablet PO 500 mg QAM VIN Administration Spironolactone 25 mg 02/26/25 09:00 03/03/25 08:51 Spironolactone 25 Mg Tablet PO 25 mg DAILY VIN Administration Telmisartan 40 mg 02/25/25 21:00 03/03/25 08:51 Telmisartan 40 Mg Tablet PO 40 mg Q12HR VIN Administration Vitamin D 50 mcg 02/26/25 09:00 03/03/25 08:51 Cholecalciferol (Vitamin D3) 25 Mcg (1,000 Units) Tablet PO 50 mcg DAILY VIN Administration Radiology Results: ITS Impressions Modified Barium Swallow 02/27/25 12:16 IMPRESSION: Laryngeal penetration without aspiration. Please correlate with speech pathologist findings and specific feeding recommendations. Chest CTA 02/27/25 13:55 IMPRESSION: 1. No PE. 2. Acute scattered bilateral pneumonitis. Chest X-Ray 03/01/25 08:10 IMPRESSION: 1. Unchanged scattered bilateral airspace opacities which could represent pneumonia or pulmonary edema. 2. Cardiomegaly. Head CT 03/02/25 11:10 IMPRESSION: 1. No acute intracranial findings. Labs Labs: Laboratory Results - last 24 hr 03/03/25 03:33 WBC 9.9 RBC 2.86 L Hgb 9.0 L Hct 27.2 L MCV 95.1 MCH 31.5 MCHC 33.1 RDW 14.5 Plt Count 124 L MPV 11.0 H Immature Gran % (Auto) Not Reportable Neut % (Auto) Not Reportable Lymph % (Auto) Not Reportable [place] % (Auto) Not Reportable Eos % (Auto) Not Reportable Baso % (Auto) Not Reportable Lymph # (Auto) Not Reportable [place] # (Auto) Not Reportable Eos # (Auto) Not Reportable Baso # (Auto) Not Reportable Abs Immat Gran (auto) Not Reportable Absolute Neuts (auto) Not Reportable Absolute Nucleated RBC Not Reportable Total Counted 100 Neutrophils % (Manual) 59 Band Neutrophils % 9 H Lymphocytes % (Manual) 22.0 Monocytes % (Manual) 10 H Nucleated RBC % Not Reportable Abs Neuts (Manual) 6.73 H Abs Lymphs (Manual) 2.17 Abs Monocytes (Manual) 0.99 H Smudge Cells Present Platelet Estimate Decreased Clumped Platelets Present Large Platelets Present % Immature Plt Fraction 7.4 Poikilocytosis 1+ Anisocytosis 1+ Ovalocytes 1+ Schistocytes None seen Sodium 132 L Potassium 3.2 L Chloride 95 L Carbon Dioxide 33 H Anion Gap 4 BUN 19 H Creatinine 0.82 Estim Creat Clear Calc 56 Estimated GFR > 60 Glucose 114 H Calcium 9.7 Magnesium 1.6 Total Bilirubin 1.7 H AST 25 ALT 33 Alkaline Phosphatase 79 NT-Pro-B Natriuret Pep 9680 H Total Protein 6.4 Albumin 3.7
[2025-03-03 14:10] LABS: IFOB Positive Control Positive; Immunochemical Fecal Occult Bl Negative (N)
--- NOTE | 2025-03-03 15:33 | PM.IMPN2 ---
Assessment and Plan Assessment and Plan (1) Acute exacerbation of CHF (congestive heart failure): Qualifiers: Heart failure type: diastolic Qualified Code(s): I50.33 - Acute on chronic diastolic (congestive) heart failure Code(s): I50.9 - Heart failure, unspecified Status: Acute (2) Hypothyroidism: Qualifiers: Hypothyroidism type: acquired Qualified Code(s): E03.9 - Hypothyroidism, unspecified Code(s): E03.9 - Hypothyroidism, unspecified Status: Chronic (3) GI bleed: Qualifiers: GI bleed type/associated pathology: anorectal hemorrhage Qualified Code(s): K62.5 - Hemorrhage of anus and rectum Code(s): K92.2 - Gastrointestinal hemorrhage, unspecified Status: Acute (4) Pneumonia: Code(s): J18.9 - Pneumonia, unspecified organism Status: Acute (5) Acute and chronic respiratory failure: Qualifiers: Respiratory failure complication: hypoxia Qualified Code(s): J96.21 - Acute and chronic respiratory failure with hypoxia Code(s): J96.20 - Acute and chronic respiratory failure, unspecified whether with hypoxia or hypercapnia Status: Acute (6) On home oxygen therapy: Code(s): Z99.81 - Dependence on supplemental oxygen Status: Acute (7) NBA on CPAP: Code(s): G47.33 - Obstructive sleep apnea (adult) (pediatric); Z99.89 - Dependence on other enabling machines and devices Status: Chronic (8) Interstitial lung disease: Code(s): J84.9 - Interstitial pulmonary disease, unspecified Status: Chronic Plan 79-year-old female with PMH dementia, chronic anemia, depression and anxiety, NBA on CPAP, asthma chronic respiratory failure requiring 2 L nasal cannula, interstitial lung disease, chronic hyponatremia, diastolic heart failure, Genevieve's thyroiditis, history of rectocele, hysterectomy, tubal ligation, hypertension, fibromyalgia, presents to [facility] ER on 02/25 with shortness of breath and cough. Initially, not requiring any additional oxygen requirements. Patient has been on apixaban for AFib, reported she had greater than 3 days of coughing up blood and bright red blood per rectum. ----- Acute asthma exacerbation. Presented with worsening shortness of breath, cough, phlegm production. Pulmonology following. Asthma exacerbation resolved, status post Solu-Medrol. Continue DuoNebs, guaifenesin, Tessalon Perles. For possible pneumonia she is on cefepime and doxycycline. She remains on 5 L nasal cannula although denies any shortness of breath, continue to wean as tolerated. Leukocytosis resolved. Hypokalemia, or replacement. Magnesium 1.6. Replace as well in the setting of AFib, continue to monitor electrolytes. Interstitial lung disease first seen on CT chest 10/02/[address] pattern indeterminate for UIP and given clinical diagnosis of fibrotic NSIP. PFT on 03/18/2023 with mild restrictive abnormality with an FEV1 of 1.68 L, total lung capacity 3.06 L, 59% and moderately decreased DLCO that remain mildly decreased when corrected for alveolar volume. Status post Solu-Medrol. Pulmonology considering aggressive systemic steroids if patient does not improve with heart failure treatment. I agree with this approach, heart failure has been adequately treated, she still has intermittent shortness of breath and requiring 5 L. Patient had coughing with presumed aspiration. Continue speech therapy. Moderately thick liquids. Acute heart failure: On 03/03/2025 decrease Lasix from 40 mg IV b.i.d. to 20 mg p.o. q.day. continue spironolactone, telmisartan. Daily weights, strict intake/output. Continue sodium chloride tablets with each dose of loop diuretics per Nephrology to keep sodium from dropping. NBA on CPAP: Continue CPAP settings per pulmonology, CPAP 13 with 5 L bleed in. Atrial fibrillation, aspirin and Eliquis on hold. Continue telemetry. Cardiology switch nebivolol to metoprolol. Hypothyroidism, continue Synthroid. Essential hypertension, blood pressure at goal. Continue amlodipine, Lasix, metoprolol, spironolactone, telmisartan. Depression, continue fluoxetine. Acute on chronic anemia. Hemoglobin improved. Continue to monitor, monitor recent hemoptysis and hematochezia which are now resolved. GI consultation complete, high-risk candidate for endoscopy. Hope to restart anticoagulation. Thrombocytopenia: Continue to monitor. Anisocoria: Assuming care on 03/02/2025, left pupil greater than right, significant, both reactive. Reviewed multiple charts from various clinicians. No mention of this before. Neurologic exam unreliable due to the patient's dementia, on 03/02/2025 CT brain without acute findings, this was likely a chronic finding. Patient wishes to be full code. Heart healthy diet. Lovenox. Time Spent With Patient Time with patient: Greater than 35 minutes Subjective Date/time seen: 03/03/25 15:33 Interval history: No acute overnight events. Pleasantly confused today. Spouse at bedside, believe she is looking better although with the 5 L oxygen requirement still does want the patient to stay and pursue further workup and treatment plan with Dr. Bland their bottom brusher. Review of Systems Review of Systems: All systems reviewed & are unremarkable except as noted in HPI and below (Subjective) Exam Const: General: comfortable and no acute distress Other: Pleasantly confused Eyes: Other: Anisocoria, left greater than right, both reactive to light. Resp: Effort & Inspection: normal respiratory effort Auscultation: clear to auscultation bilaterally Cardio: Rate: regular rate Rhythm: abnormal rhythm GI: Inspection: non-distended GI Palp: Yes Soft to palpation Neuro: Motor exam (neuro): 5/5 motor strength present throughout Extrem: Other: Trace pitting edema bilateral lower extremities Objective Data Vital Signs Vital Signs: Vital Signs - 24 hr 03/02/25 16:00 03/02/25 16:00 03/02/25 16:00 Temperature 98.6 F Pulse Rate 87 86 Respiratory Rate 23 H Blood Pressure 111/57 L Pulse Oximetry 100 96 Oxygen Delivery High Flow Nasal Cannula Oxygen Flow Rate 5 03/02/25 18:00 03/02/25 20:00 03/02/25 20:00 Temperature 98.5 F Pulse Rate 84 77 Respiratory Rate 18 Blood Pressure 99/51 L Pulse Oximetry 98 98 Oxygen Delivery High Flow Nasal Cannula Oxygen Flow Rate 4 03/02/25 20:00 03/02/25 20:40 03/02/25 20:40 Temperature Pulse Rate 78 78 78 Respiratory Rate 18 Blood Pressure Pulse Oximetry 98 Oxygen Delivery High Flow Nasal Cannula Oxygen Flow Rate 5 03/02/25 20:47 03/02/25 22:00 03/02/25 22:36 Temperature Pulse Rate 75 79 75 Respiratory Rate 18 Blood Pressure Pulse Oximetry 97 Oxygen Delivery CPAP Oxygen Flow Rate 03/02/25 23:59 03/03/25 00:00 03/03/25 00:00 Temperature 98.1 F Pulse Rate 83 82 Respiratory Rate 20 Blood Pressure 100/63 Pulse Oximetry 91 91 Oxygen Delivery CPAP Oxygen Flow Rate 03/03/25 02:00 03/03/25 02:31 03/03/25 02:33 Temperature Pulse Rate 76 79 79 Respiratory Rate 18 Blood Pressure Pulse Oximetry 94 Oxygen Delivery CPAP Oxygen Flow Rate 03/03/25 02:36 03/03/25 04:00 03/03/25 04:00 Temperature 97.4 F L Pulse Rate 72 92 Respiratory Rate 18 2 L Blood Pressure 133/67 Pulse Oximetry 95 91 Oxygen Delivery CPAP Oxygen Flow Rate 03/03/25 04:00 03/03/25 06:00 03/03/25 07:24 Temperature Pulse Rate 76 78 Respiratory Rate Blood Pressure Pulse Oximetry 95 Oxygen Delivery High Flow Nasal Cannula Oxygen Flow Rate 5 03/03/25 07:24 03/03/25 07:31 03/03/25 08:00 Temperature 97.7 F Pulse Rate 87 88 79 Respiratory Rate 20 20 16 Blood Pressure 102/59 L Pulse Oximetry 98 Oxygen Delivery Oxygen Flow Rate 03/03/25 08:52 03/03/25 12:00 03/03/25 13:19 Temperature 99.0 F Pulse Rate 90 89 89 Respiratory Rate 16 20 Blood Pressure 121/80 Pulse Oximetry 95 Oxygen Delivery Oxygen Flow Rate 03/03/25 13:28 Temperature Pulse Rate 87 Respiratory Rate 20 Blood Pressure Pulse Oximetry Oxygen Delivery Oxygen Flow Rate Intake/Output Intake/Output: Intake & Output 02/28/25 03/01/25 03/02/25 03/03/25 23:59 23:59 23:59 23:59 Intake Total 2390 680 1420 728.3 Output Total 3000 5200 640 500 [place] [address] 780 228.3 Meds/Results Medications: Active Medications Generic Name Dose Route Start Last Admin Trade Name Freq PRN Reason Stop Dose Admin Acetaminophen 650 mg 02/25/25 02:42 03/03/25 13:28 Acetaminophen 325 Mg Tablet PO 650 mg Q4H PRN Administration Mild Pain (1-3) or Fever Albuterol 2.5 mg 02/25/25 15:24 Albuterol Sulfate Neb 2.5 Mg/3 Ml Inh INHALATION Q6HRT PRN Shortness Of Breath Or Wheezing Albuterol/Ipratropium 3 ml 02/25/25 08:00 03/03/25 13:19 Ipratropium 0.5 Mg/Albuterol Sulfate 2.5 Mg (Base) Ampul.Neb 3 Ml INHALATION 3 ml Q6HRT VIN Administration Amlodipine Besylate 10 mg 02/26/25 09:00 03/03/25 08:52 Amlodipine Besylate 10 Mg Tablet PO 10 mg DAILY VIN Administration Benzonatate 200 mg 02/27/25 22:00 03/03/25 13:28 Benzonatate 100 Mg Capsule PO 200 mg Q8HR VIN Administration Diclofenac Sodium 0 applic 02/25/25 15:24 Diclofenac Sodium 1% 100 Gm Gel (*Bkc) TOPICAL QID PRN JOINT PAIN Docusate Sodium 100 mg 02/25/25 21:00 03/03/25 08:51 Docusate Sodium 100 Mg Capsule PO 100 mg Q12HR VIN Administration Donepezil HCl 5 mg 02/25/25 21:00 03/02/25 21:17 Donepezil Hcl 5 Mg Tablet PO 5 mg QHS VIN Administration Enoxaparin Sodium 40 mg 03/01/25 09:00 03/03/25 08:51 Enoxaparin 40 Mg/0.4 Ml Syringe SUB-Q 40 mg DAILY VIN Administration Fish Oil 1 gm 02/26/25 09:00 03/03/25 08:52 [place] 3 Polyunsat Fatty Acids 1 Gm Cap PO 1 gm DAILY VIN Administration Fluoxetine HCl 20 mg 02/25/25 22:00 03/03/25 13:28 Fluoxetine Hcl 20 Mg Capsule PO 20 mg Q8HR VIN Administration Folic Acid 1 mg 02/26/25 09:00 03/03/25 08:52 Folic Acid 1 Mg Tablet PO 1 mg DAILY VIN Administration Furosemide 40 mg 03/01/25 09:00 03/03/25 08:52 Furosemide Inj 40 Mg/4 Ml Vial IV PUSH 40 mg BID VIN Administration Gabapentin 300 mg 02/25/25 15:35 03/01/25 05:29 Gabapentin 300 Mg Capsule PO 300 mg On Hold: 03/01/25 13:41 Q8HR VIN Administration Guaifenesin 1,200 mg 02/25/25 21:00 03/03/25 08:51 Guaifenesin 12 Hr 600 Mg Tabcr PO 1,200 mg Q12HR IVN Administration Cefepime HCl 2 gm/ Sodium 50 mls @ 100 mls/hr 02/25/25 17:00 03/03/25 06:30 Chloride IVPB 0 mls/hr Q12H VIN Infusion Doxycycline Hyclate 100 mg/ 100 mls @ 100 mls/hr 03/02/25 09:00 03/03/25 08:53 Sodium Chloride IVPB 100 mls/hr Q12HR VIN Administration Levothyroxine Sodium 150 mcg 02/26/25 06:30 03/03/25 06:06 Levothyroxine Sodium 150 Mcg Tablet PO 150 mcg DAILY@0630 VIN Administration Lidocaine 1 patch 02/26/25 09:00 03/03/25 08:53 Lidocaine 5% Patch TRANSDERM 1 patch DAILY VIN Administration Loratadine 10 mg 02/25/25 15:24 03/03/25 08:52 Loratadine 10 Mg Tablet PO 10 mg DAILY PRN Administration allergy symptoms Lorazepam 2 mg 02/26/25 23:03 03/02/25 04:00 Lorazepam (*Crx) 1 Mg Tablet PO 2 mg Q4H PRN Administration Anxiety Metoprolol Succinate 50 mg 03/03/25 09:00 03/03/25 08:52 Metoprolol Succinate Ext Rel 50 Mg Tabcr PO 50 mg QAM VIN Administration Montelukast Sodium 10 mg 02/26/25 09:00 03/03/25 08:52 Montelukast Sodium 10 Mg Tablet PO 10 mg DAILY VIN Administration Ondansetron HCl 4 mg 02/25/25 02:42 Ondansetron Inj 4 Mg/2 Ml Vial IV PUSH Q4H PRN Nausea Pantoprazole Sodium 40 mg 02/25/25 21:00 03/03/25 08:52 Pantoprazole 40 Mg Tablet PO 40 mg Q12HR VIN Administration Potassium Chloride 20 meq 03/02/25 09:40 03/03/25 08:51 Potassium Chloride 20 Meq Er Tablet PO 20 meq BID VIN Administration Pravastatin Sodium 40 mg 02/26/25 09:00 03/03/25 08:52 Pravastatin Sodium 20 Mg Tablet PO 40 mg DAILY VIN Administration Sodium Chloride 500 mg 02/28/25 09:00 03/03/25 08:52 Sodium Chloride 500 Mg Tablet PO 500 mg QAM VIN Administration Spironolactone 25 mg 02/26/25 09:00 03/03/25 08:51 Spironolactone 25 Mg Tablet PO 25 mg DAILY VIN Administration Telmisartan 40 mg 02/25/25 21:00 03/03/25 08:51 Telmisartan 40 Mg Tablet PO 40 mg Q12HR VIN Administration Vitamin D 50 mcg 02/26/25 09:00 03/03/25 08:51 Cholecalciferol (Vitamin D3) 25 Mcg (1,000 Units) Tablet PO 50 mcg DAILY VIN Administration Radiology Results: ITS Impressions Modified Barium Swallow 02/27/25 12:16 IMPRESSION: Laryngeal penetration without aspiration. Please correlate with speech pathologist findings and specific feeding recommendations. Chest CTA 02/27/25 13:55 IMPRESSION: 1. No PE. 2. Acute scattered bilateral pneumonitis. Chest X-Ray 03/01/25 08:10 IMPRESSION: 1. Unchanged scattered bilateral airspace opacities which could represent pneumonia or pulmonary edema. 2. Cardiomegaly. Head CT 03/02/25 11:10 IMPRESSION: 1. No acute intracranial findings. Labs Labs: Laboratory Results - last 24 hr 03/03/25 03/03/25 03:33 13:55 WBC 9.9 RBC 2.86 L Hgb 9.0 L Hct 27.2 L MCV 95.1 MCH 31.5 MCHC 33.1 RDW 14.5 Plt Count 124 L MPV 11.0 H Immature Gran % (Auto) Not Reportable Neut % (Auto) Not Reportable Lymph % (Auto) Not Reportable [place] % (Auto) Not Reportable Eos % (Auto) Not Reportable Baso % (Auto) Not Reportable Lymph # (Auto) Not Reportable [place] # (Auto) Not Reportable Eos # (Auto) Not Reportable Baso # (Auto) Not Reportable Abs Immat Gran (auto) Not Reportable Absolute Neuts (auto) Not Reportable Absolute Nucleated RBC Not Reportable Total Counted 100 Neutrophils % (Manual) 59 Band Neutrophils % 9 H Lymphocytes % (Manual) 22.0 Monocytes % (Manual) 10 H Nucleated RBC % Not Reportable Abs Neuts (Manual) 6.73 H Abs Lymphs (Manual) 2.17 Abs Monocytes (Manual) 0.99 H Smudge Cells Present Platelet Estimate Decreased Clumped Platelets Present Large Platelets Present % Immature Plt Fraction 7.4 Poikilocytosis 1+ Anisocytosis 1+ Ovalocytes 1+ Schistocytes None seen Sodium 132 L Potassium 3.2 L Chloride 95 L Carbon Dioxide 33 H Anion Gap 4 BUN 19 H Creatinine 0.82 Estim Creat Clear Calc 56 Estimated GFR > 60 Glucose 114 H Calcium 9.7 Magnesium 1.6 Total Bilirubin 1.7 H AST 25 ALT 33 Alkaline Phosphatase 79 NT-Pro-B Natriuret Pep 9680 H Total Protein 6.4 Albumin 3.7 Stl Occult Blood (IFOB) Negative
[2025-03-03] MEDS: MAGNESIUM SULF 2 GM/WATER 50ML 2 GM/50 ML BAG IVPB (18:26)
[2025-03-03] MEDS: LORazepam (*CRX) 1 MG TABLET 2 MG PO (19:07)
[2025-03-03] MEDS: DONEPEZIL HCL 5 MG TABLET PO (22:28)
[2025-03-04] VITALS (22 sets, daily range): BP systolic 111–125; BP diastolic 68–78; PULSE 59–100; RESP 12–28; TEMP 36.6–37; O2SAT 94–100
[2025-03-04] MEDS: IPRATROPIUM 0.5 MG/ALBUTEROL SULFATE 2.5 MG (BASE) AMPUL.NEB 3 ML INHALATION ×3 (02:13→14:29)
[2025-03-04 04:35] LABS: Hematocrit 26.1 % (37.0-47.0); Hemoglobin 8.7 g/dL (12.0-15.0); Immature Granulocyte Percent A 2.4 % (0-0.5); Immature Platelet Fraction Pct 7.2 % (0.9-11.2); Lymphocytes Absolute Auto 1.00 K/mm3 (0.9-3.2); Mean Corpuscular HGB Conc 33.3 g/dl (32-36); Mean Corpuscular Hemoglobin 32.2 pg (26-34); Mean Corpuscular Volume 96.7 fl (80-100); Nucleated Red Blood Cells Absolute Auto 0.000 K/mm3 (0.0-0.012); Nucleated Red Blood Cells Perc 0.0 % (0.0-0.2); Platelet Count Result 121 k/mm3 (150-375); Red Blood Count 2.70 M/mm3 (4.2-5.4); White Blood Count 9.0 K/mm3 (4.5-10.0)
[2025-03-04 04:44] LABS: Alanine Aminotransferase 29 U/L (6-35); Albumin Level 3.5 g/dL (3.5-5.1); Alkaline Phosphatase 78 U/L (38-126); Anion Gap 2 mmol/L (4-12); Aspartate Amino Transferase 24 U/L (14-36); Bilirubin,Total 1.5 mg/dL (0.2-1.3); Blood Urea Nitrogen 19 mg/dL (7-17); Calcium 9.2 mg/dL (8.4-10.2); Carbon Dioxide 31 mmol/L (22-30); Chloride 96 mmol/L (98-107); Estimated CRCL calculation 62 ml/min; Estimated Glomerular Filt Rate > 60; Glucose 103 mg/dL (65-110); Magnesium 1.8 mg/dL (1.6-2.3); Sodium 129 mmol/L (137-145); Total Protein 6.1 g/dL (6.3-8.2)
[2025-03-04 04:51] LABS: Potassium 3.8 mmol/L (3.4-5.0)
[2025-03-04] MEDS: CEFEPIME 2 GM in SODIUM CHLORIDE 0.9% IV 50 ML 100 ML IVPB (05:03)
[2025-03-04 05:49] LABS: NT Pro B Type Natriuretic Pept 6040 pg/mL (19.9-100)
[2025-03-04] MEDS: BENZONATATE 100 MG CAPSULE 200 MG PO ×3 (05:52→20:54)
[2025-03-04] MEDS: LEVOTHYROXINE SODIUM 150 MCG TABLET PO (05:52)
[2025-03-04] MEDS: DOCUSATE SODIUM 100 MG CAPSULE PO ×2 (08:19→20:55)
[2025-03-04] MEDS: OMEGA 3 POLYUNSAT FATTY ACIDS 1 GM CAP PO (08:19)
[2025-03-04] MEDS: TELMISARTAN 40 MG TABLET PO ×2 (08:19→20:55)
[2025-03-04] MEDS: POTASSIUM CHLORIDE 20 MEQ ER TABLET PO ×2 (08:19→17:14)
[2025-03-04] MEDS: MONTELUKAST SODIUM 10 MG TABLET PO (08:19)
[2025-03-04] MEDS: CHOLECALCIFEROL (VITAMIN D3) 25 MCG (1,000 UNITS) TABLET 50 MCG PO (08:19)
[2025-03-04] MEDS: SPIRONOLACTONE 25 MG TABLET PO (08:19)
[2025-03-04] MEDS: guaiFENesin 12 HR 600 MG TABCR 1200 MG PO (08:19)
[2025-03-04] MEDS: PRAVASTATIN SODIUM 20 MG TABLET 40 MG PO (08:19)
[2025-03-04] MEDS: PANTOPRAZOLE 40 MG TABLET PO ×2 (08:19→20:55)
[2025-03-04] MEDS: METOPROLOL SUCCINATE EXT REL 50 MG TABCR PO (08:19)
[2025-03-04] MEDS: SODIUM CHLORIDE 500 MG TABLET PO (08:19)
[2025-03-04] MEDS: DOXYCYCLINE IV 100 MG in SODIUM CHLORIDE 0.9% IV 100 ML IVPB (08:20)
[2025-03-04] MEDS: LIDOCAINE 5% PATCH 1 PATCH TRANSDERM (08:20)
[2025-03-04] MEDS: FOLIC ACID 1 MG TABLET PO (08:20)
[2025-03-04] MEDS: ENOXAPARIN 40 MG/0.4 ML SYRINGE SUB-Q (08:20)
--- NOTE | 2025-03-04 10:52 | P.PNPL_ITS ---
Progress Note: A&P Assessment and Plan (1) Interstitial lung disease: Code(s): J84.9 - Interstitial pulmonary disease, unspecified Status: Chronic Assessment and Plan: Patient with chronic interstitial lung disease which was first seen on CT scan of the chest 10/02/[address] pattern indeterminant for UIP and given a clinical diagnosis of fibrotic NSIP. most recent PFTs on 03/18/2023 with a mild restrictive abnormality with an FEV1 of 1.68 L, total lung capacity 3.06 L, 59% and moderately decreased DLCO that remained mildly decreased when corrected for alveolar volume. Compared to PFTs on 12/08/2021 there has been a significant decrease in the FEV1, total lung capacity with no significant change in the DLCO. Chronic hypoxemic respiratory failure requiring 2 L oxygen at rest, with activity and bleed in with her CPAP of 13 for her NBA. Serologies: 11/18/2021 anti CCP peptide less than 16. Anca screen negative. Demetra 1 antibody negative, SSA antibody negative, SSB antibody negative, [employer] WORK[employer] antibody negative, Scl 70 scleroderma antibody negative. 05/13/2022: Rheumatoid factor less than 14. ABRAM positive 1-80, homogeneous nuclear. In pulmonary clinic on 08/11/2023: * Stable, clinically and by recent HRCT 02/15/24. * We planned on repeating PFTs but patient had to reschedule. We've agreed to hold off on PFTs for now since her symptoms are stable. Discussed the purpose of getting PFTs would be to determine if ILD has progressed and if so, offer a referral to [facility] ILD clinic which she's not too interested in, so we'll hold off on testing for now unless her symptoms change. 02/14/2024: Later in the patient had a CT angiogram of the chest and compared to 02/14/2024. There was negative for PE. Patient had interstitial lung disease with no change in her right upper lobe mild peripheral reticulations and improved ground-glass infiltrates. The right lower lobe demonstrated improved ground-glass infiltrates and no change in her dependent reticulations and bronchiectasis. The right middle lobe was spared in both examinations. There were improved ground-glass infiltrates in the left upper lobe with no change in her diffuse reticulations in the left upper lobe, lingula and left lower lobe. My opinion this is CT pattern indeterminant for UIP and could be consistent with fibrotic NSIP. 02/13/25: Serologies: Rheumatoid factor less than 12, negative.? Anti CCP 8, negative.? 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 Hypersensitivity pneumonitis panel negative.? Anca screen with negative anti MPO antibody.? Negative anti PR3 antibody.? Negative cytoplasmic C ANCA.? Negative perinuclear ANCA.? Atypical p-ANCA is positive 160.? Myositis panel pending. 02/27/25: patient with worsening oxygenation, hemoptysis. Patient gained 15 kg since she was discharged from the hospital on 02/16/2025. BNP increased from 7 930 on 02/25/2025 to 8710 today. Weight today is 95.3 kg with an admission weight of 104.2 kg. Yesterday she is positive 300 mL. Cumulative she -290 mL. Plan: I will obtain a CT angiogram of the chest. I have discontinued apixaban 5 q.12 hours, last dose 02/27 at 09:56. I have discontinued aspirin 81 q.a.m, last dose 02/27/ at 9:56. Regarding additional issues patient is being diuresed per Cardiology and hospitalist teams. She is getting CT angiogram of the chest today so agree with no IV Lasix today. Will reassess tomorrow. Patient is being treated for possible pneumonia with vancomycin given once on 02/25/2025 And MRSA swab on 02/25/2025 was negative, cefepime and doxycycline since 02/25/2025. Will continue for now. initial COVID, influenza, RSV RT PCR assay negative. I will repeat to ensure that this was a true positive. Will send respiratory pathogen panel, urine for Legionella antigen, urine for pneumococcal antigen and serum mycoplasma IgM. Later in the day patient had a CT angiogram of the chest: No PE, worsening patchy ground-glass infiltrates in all lobes compared with CT scan on 02/15/2025 and 02/13/2025. 02/28/2025: Patient remained on Lasix 20 mg p.o. q.day. Remained on 5 L nasal cannula with saturations 95%. 03/01/2025: When I entered the room patient was on 6 L nasal cannula saturation 93%. I decreased her to 4 L at her saturations decreased to 89% over the next 6 minutes. I placed her back on 6 L nasal cannula. Improved hemoptysis. When I prompted her to cough up phlegm she cough it up for expectorations, 3 were clear and 1 was clear with blood streaks. CRP has improved from 2.7 on 02/27/2025 to 1.4 today. BNP has worsened from 8710 on 02/27/2025 to 9910 today. procalcitonin is unchanged from 0.1 on 02/27/2025 to 0.1 today. Free T4 is 1.14. Yesterday she was -960 mL. Cumulative she is - 2.07 L since admission. Her weight today is 102.4 kg. Chest x-ray today with continued bilateral interstitial alveolar infiltrates. Plan: I am still concerned about fluid overload and agree with the more aggressive diuresis. She has been started on Lasix 40 IV b.i.d. today. Will follow her with this treatment and off of steroids for the next 72 hours to determine if she responds to more aggressive diuresis and completing treatment for possible bacterial pneumonia. Blood culture x2 negative at 48 hours. In house COVID, influenza, RSV RT PCR assay negative on 02/25/2025 and 02/27/2025. Respiratory pathogen panel, urine Legionella antigen, urine pneumococcal antigen, serum mycoplasma IgM all pending. If she does not respond to more aggressive diuresis and completion of treatment for bacterial pneumonia or deteriorates will consider treating her for interstitial lung disease exacerbation with higher doses of systemic steroids. 03/04/2025; diuresis has been effective, improved weight, no LE edema, CXR continues to show edema however may lag behind clinical improvement. She is not back to normal, but more than 50% improved, maybe 70%. ILD is her underlying lung issue, no acute change in this. (2) NBA on CPAP: Code(s): G47.33 - Obstructive sleep apnea (adult) (pediatric); Z99.89 - Dependence on other enabling machines and devices Status: Chronic Assessment and Plan: NBA: * She is on CPAP 13 EPR 2 with 2L/min bleed in. This is a ResMed AirSense 11 from [employer]. * Download 05/11/24 - 08/08/24 shows CPAP used nightly for avg usage 8h3m per night. Overall AHI is 7.8. (This is an improvement from AHI 13.5 on CPAP 8cm last visit). * Continue CPAP with all episodes of sleep. Patient benefits from CPAP use. Follow up in about 6 months, or sooner as needed. Patient encouraged to contact the office with any questions or concerns in the interim. On the night of 02/12/2025 Patient required BiPAP rate of 4 pressures 02/09 inspiratory time 1.0 and a rise of 3. She said that this did help her work of breathing. 02/13/2025: patient is on CPAP 13 with 2 L bleed in. Plan: I will attempt to 10 a download from [employer]. [place] I will place the patient on CPAP 13 with 2 L bleed in and perform an overnight oximetry. If she has increased work of breathing and cannot tolerate her CPAP will continue BiPAP with settings as above. 02/14/25: Patient wear her home CPAP 13 with 2 L bleed in and said that she slept better last night. Patient had an overnight oximetry with recording duration of 6 hours and 40 minutes. Average saturation 92%. Low saturation 82%. Time with saturation less than or equal to 88% was 65 minutes. Oxygen desaturation index 11.5. Download from 01/14/2025 through 02/12/2025 through [employer]. Patient is on CPAP 13 with an EPR level of 2. Usage days greater than or equal to 4 hours is 93%. Average usage on days used is 7 hours and 52 minutes. AHI 3.4. Apnea index 2 .1, hypopnea index 1.3. Median leak 0.1. Ninety-fifth percentile leak 3.8. Maximum leak 10. I interpret this download as very good compliance, adequate pressures and low leak. 02/15/2025: Patient wore her home noninvasive ventilator with 4 L last night. She denies having issues with the mask or machine. Patient had an overnight oximetry with recording duration of 4 hours and 52 minutes. Average saturation 94%. Low saturation 80%. Time with saturation less than or equal to 88% was 8 minutes. Oxygen desaturation index 16.6. 02/16/25: Patient wore her home CPAP 13 with 5 L bleed Using her over the mouth under the nose mask in and said she did well. overnight oximetry with recording duration 5 hours and 47 minutes. Average saturation 96%. Low satura tion 91%. Time with saturation less than or equal to 88% was 0 minutes. Oxygen desaturation index 2.2. 02/27: Patient has been wearing her home machine with 5 L bleed in. Plan: Continue her home CPAP 13 with 5 L bleed in. 03/01/2025: patient tells me she wore her home CPAP 13 with 5 L bleed in. Plan: Continue home CPAP with 5 L bleed in. 03/04/2025: she continues to use her home CPAP at night during this admission. (3) Asthma with exacerbation: Code(s): J45.901 - Unspecified asthma with (acute) exacerbation Status: Acute Assessment and Plan: This admission was not due to asthma, but to volume overload, CHF, atrial fibrillation, with abnormal swallow discovered on a modified barium swallow 02/27/25, now on thickened liquids and using chin tuck with swallowing. Patient carries a long history of asthma with no evidence of fixed obstruction on her PFTs. She presents now with worsening shortness of breath, cough, phlegm production and wheezing in the emergency department. She was recently discharged from the hospital on 02/16 following treatment for asthma exacerbation where she completed 5 days of steroids and was discharged on Trelegy 200, montelukast 10 mg, rescue albuterol, guaifenesin 1200 p.r.n., oxygen 2 L at rest and 2 L with activity and CPAP 13 with 5 L bleed in. She is now on 2 L/min, saturation 92%, adequate oxygenation for discharge. Plan Ok for discharge form pulmonary standpoint today.. Can follow up in the pulmonary clinic; has an appointment for March [address] Bland; she should keep this appointment. CXR Mar 13 before appointment in our office. She can go home on these medications: Trelegy 200/ 62. one puff a day. Albuterol rescue inhaler 90 mcg 1-2 puffs Q 4 hours p.r.n. shortness of breath albuterol for the nebulizer 2.5 mg nebulize Q 6- 8 hours p.r.n. shortness of breath montelukast 10 mg po daily I requested a Cornet valve to help her clear secretions. Her asked about how much diuretic she needs. Dr Holland was managing her Lasix 40 mg IV bid, now on 20 mg po once a day. Subjective Date/time seen: 03/04/25 10:52 Interval history: 02/27/25: This is a new pulmonary consult for shortness of breath an asthma exacerbation 79-year-old with a history of asthma, interstitial lung disease felt to be fibrotic NSIP, chronic hypoxic respiratory failure requiring 2 L at rest, with activity and with sleep, NBA on CPAP 13 and 2 L bleed in, chronic pain. At baseline patient patient and tell me she can walk 35 ft with a walker. She uses 2 L oxygen at rest with activity and bleed in at night with saturations 98% at rest. Her activity level has not changed over the last 6 months. I saw the patient in pulmonary consultation when she was admitted 02/10/2025 through 02/16/2025:? Patient admitted to [facility] with acute onset SOB and wheezing.? She presented to the ED with respiratory distress, worsening hypoxia with an ABG on 4 L 7.40/38/75, elevated BNP.? Patient was treated for asthma exacerbation, possible pneumonia and fluid overload with Solu-Medrol, bronchodilators, bronchodilators, ceftriaxone, azithromycin, IV Lasix.? Patient had a CT angiogram of the chest on 02/13/2025 and compared to 02/14/2024 there was no PE. Patient had interstitial lung disease with no change in her right upper lobe mild peripheral reticulations and improved ground-glass infiltrates. The right lower lobe demonstrated improved ground-glass infiltrates and no change in her dependent reticulations and bronchiectasis. The right middle lobe was spared in both examinations. There were improved ground-glass infiltrates in the left upper lobe with no change in her diffuse reticulations in the left upper lobe, lingula and left lower lobe. My opinion this is CT pattern indeterminant for UIP and could be consistent with fibrotic NSIP.? Lower extremity Dopplers were negative.? Patient has CT scan of the neck and chest on 02/15/25 that demonstrated no tracheobronchial malacia or soft tissue masses and improvement in her ground-glass infiltrates.? Serologies for autoimmune and connective tissue disease were sent.? ?The patient treated with Lasix and diuresed 6 L.? Her BNP improved from 13,500 to 58910.? Her weight improved from 97.8 kg on 02/10/25 to 89.9 kg on 02/16/25.? She had hypoxia on her overnight oximetry on CPAP 13 on 4 L that corrected on 5 L bleed in.? Home O2 assessment demonstrated she needs 2 L with rest and activity.? Patient was discharged on: Trelegy 200 at 1 puff q.day, Rescue albuterol 2 puffs Q 4 hours p.r.n. shortness of breath or wheezing, Montelukast 10 mg q.day and Guaifenesin 1200 mg p.o. b.i.d. p.r.n. chest congestion. takes notes on his computer and we reviewed these in detail: 02/17 through 02/19 the patient was doing well breathing on 2 L nasal cannula with saturations 95-96%. She was taking 2-3 steps and had no rash use respiratory issues. 02/20/2025 breathing was okay she started to have some confusion and memory issues. 02/21/2025 patient slept very well and had a good day with no memory or breathing issues. 02/22/2025 the patient slept poorly. She woke up at 3:30 a.m. and urinated all over the room. She started with coughing. Throughout the day she had increased cough with mucus that was thick. 02/23/2025 she had her best day since she had been home from the hospital. 02/24/2025 patient's heart rate was increasing intermittently. No breathing issues. 02/25/2025: She had worsening heart rate variability, she did sleep and she had gained 15 lb since discharge and the was worried about congestive heart failure and called EMS. Minimal changes in patient's respiratory status according to the . 02/25/2025 Patient admitted to [facility] with SOB, ABG 7.56/ and the patient was placed on BiPAP in the ER for increased work of breathing.? BNP 7930.? COVID influenza RSV RT PCR assay negative. Chest x-ray with persistent interstitial alveolar infiltrates left greater than right, perihilar infiltrates with no pleural effusions.? Her weight was 104.2 kg with a discharge weight on 02/16/2025 was 89.9 kg.? She was treated for congestive heart failure, hyponatremia, asthma exacerbation, possible pneumonia, fluid overload with IV Lasix, hyponatremia without specific means.? For continue diuresis nephrology recommended salt tablets prior to diuretics.? noticed hemoptysis. On 02/26 the patient was much improved with cefepime, Solu-Medrol, bronchodilators, IV Lasix. Patient was on 5 L nasal cannula. At 2:00 p.m. in the afternoon the patient became confused with no change in her breathing status according to the . Oxygen requirements increased throughout the day from 2 L up to 5 L. Patient wore home noninvasive ventilator with 5 L bleed in. 02/27/2025: Patient apparently aspirated on food. She has worsening mental status. Patient is on 2 L nasal cannula with saturations 96%. She is afebrile. White blood cell count 17.9, creatinine 0.87. BNP 8710. CRP 2.7. Weight today is 95.3 kg with an admission weight of 104.2 kg. Yesterday she is positive 300 mL. Cumulative she -290 mL. While talking to the patient she had 3 expectorations with bright red blood and some mucus. Saturations on 4 L were 95%. Later in the day patient had a CT angiogram of the chest: No PE, worsening patchy ground-glass infiltrates in all lobes compared with CT scan on 02/15 and 02/13/2025. Later in the day modified barium swallow: Recommend 1. Regular diet / Level 7 2. Moderately thick liquid / Level 3 3. Upright with meals 4. Small bites and drinks 5. No Straw 6. Chin-tuck posture with swallows. 7. Speech services to address laryngeal elevation and use of compensatory techniques. 02/28/2025: Patient remained on Lasix 20 mg p.o. q.day. Remained on 5 L nasal cannula with saturations 95%. 03/01/2025: Patient does not answer questions coherently. She knows her name, [facility], does not know the year or the president. She perseverates. When I prompted her to cough up phlegm she cough it up for expectorations, 3 were clear and 1 was clear with blood streaks. She is afebrile. White blood cell count 13.2, creatinine 0.79. CRP has improved from 2.7 on 02/27/2025 to 1.4 today. BNP has worsened from 8710 on 02/27/2025 to 9910 today. procalcitonin is unchanged from 0.1 on 02/27/2025 to 0.1 today. Free T4 is 1.14. Yesterday she was -960 mL. Cumulative she is -2.07 L since admission. Her weight today is 102.4 kg. Chest x-ray today with continued bilateral interstitial alveolar infiltrates. Per bedside nurse patient was feeding herself and began having a coughing paroxysm requiring higher oxygen up to 9 L. She had continued coughing with presumed aspiration. This event occurred prior to her chest x-ray. Patient does not remember coughing or choking. As above she should be on moderately thick liquids but was not. 03/04/2025; Patient improved over the weekend. RN says she has plans to go home today. Pt can answer simple questions, says she remembers Dr Bland, shows me her stuffed animal black cat, Yumi. She and Terell live at [facility], however she will need more care than he can provide. OT talked with him about rehab at [facility]. OT note recommends out patient therapy. Kaitlin OCONNOR is inquiring into options for Home Health/Pt/OT at [facility]. Patient is alert, talking nonstop, coughing often with small amounts of clear sputum. I do not see blood in her sputum, so the hemoptysis has improved. Saturation is 94% on 2 L/min, improved. She required higher flow oxygen yesterday L/min, higher amounts prior to that. Weight down, 89.3 kg, with diuresis, 102.4 kg Mar 01. H/H 8.7/26.1%, stable. WBC 9, now in normal range. CXR today interpretation Cardiomegaly with pulmonary edema.. I looked at it and compared to Mar 01, agree that these are similar, today she was not taking as large a breath, was not upright. She is now taking thickened liquids and using a chin tuck with swallowing; these changes were made after abnormal MBS 02/27/25, with the expectation that with less aspiration, she will have improvement in coughing. Sodium is 129, in her normal range. DATA: DATE Pre FVC (% pred) Pre FEV1 (% pred) Post FVC Post FEV1 TLC (% pred) FRC (% pred) RV (% pred) DLCO unadj (% pred) DLCO/VA (% pred) 03/18/23 2.11 (79) 1.68 (83) 2.13 1.73 3.06 (59) 0.88 (29) 0.73 (30) 9.30 (47) 2.68 (65) 09/20/22 2.13 (80) 1.70 (84) 2.14 1.69 3.85 (74) 1.73 (58) 1.55 (64) 9.5 (48) 2.72 (66) 12/08/21 2.78 (103) 2.19 (107) 2.83 2.31 5.12 (98) 3.00 (100) 2.17 (90) 10.5 (53) 2.96 (72) 02/27/25: modified barium swallow Recommend 1. Regular diet / Level 7 2. Moderately thick liquid / Level 3 3. Upright with meals 4. Small bites and drinks 5. No Straw 6. Chin- tuck posture with swallows. 7. Speech services to address laryngeal elevation and use of compensatory techniques. 02/15/25: EXAM/PROCEDURE: CT soft tissue neck chest wo HISTORY: Abnormal PFTs, assess for tracheal abnormality COMPARISON: Chest CT exam from February 132023, and 2024 TECHNIQUE: CT of the neck and chest without contrast FINDINGS: CT: The pharyngeal airway appears within normal limits Extensive atherosclerotic calcification in the carotid arteries right greater than left. Scattered nonpathologic sized lymph nodes. No large mass or drainable fluid collection. Diffuse degenerative changes throughout the bones. No gross acute process seen in the visualized intracranial contents or soft tissues of the neck. Vocal cord areas appear normal. Chest CT: The trachea is somewhat ectatic but there is no significant narrowing to confirm tracheomalacia. Tracheal wall calcification as well as bronchial wall calcification noted. Mild to moderate scattered fibrotic appearing changes. Groundglass opacification is slightly improved compared to the February 13, 2025 exam. Heart is mildly enlarged. Central main pulmonary artery also enlarged with the main pulmonary artery measuring approximately 4.3 cm in diameter. No significant pericardial effusion. Scattered mediastinal lymph nodes, mildly pathologic in size unchanged from the 2023 exam. In the upper abdomen, pneumobilia again noted along with cholecystectomy clips. No acute process seen in the visualized portions of the extrathoracic soft tissues. Degenerative changes throughout the bones. IMPRESSION: 1. No acute process involving the trachea identified; no evidence of tracheobronchomalacia on this exam. There is calcification throughout the tracheal air column and bronchial passages which is chronic and benign. 2. Other findings as above including a large central and main pulmonary arteries suggesting pulmonary arterial hypertension; interstitial lung pattern consistent with fibrosing form of nonspecific interstitial pneumonitis or possible mild UIP. Groundglass opacification could represent alveolar fibrosis versus superimposed acute atypical inflammatory/infectious pneumonitis. 02/15/24: CT Scan of the Chest without Contrast: Clinical Indication: Interstitial lung disease Technique: Contiguous sections were acquired throughout the chest without intravenous contrast. Dose reduction technique was used on this scan by utilizing automated exposure control and iterative reconstruction technique. The dose-length product (DLP) was 331.74 mGy-cm. COMPARISON: 03/18/2023 Findings: Mildly prominent mediastinal lymph nodes are stable from prior exam. No aortic aneurysm. Coronary artery calcification present. There is no evidence of pleural or pericardial effusion. Extensive interstitial thickening the lungs is similar to prior exam, with some increased background groundglass component throughout the lungs. Images through the upper abdomen reveal no abnormalities. There is extensive degenerative spondylosis in the spine. Impression: Stable extensive interstitial disease in the lungs. Mildly increased background groundglass opacity, which could reflect progressing interstitial disease versus other superimposed pathology such as bronchiolitis, asthma, or mild pulmonary edema, versus suboptimal inspiration. 09/20/22 - Home O2 Eval - Patient requires 2L/min O2 with ambulation and none at rest. 09/20/2022: This is a pulmonary function test with pre and post-bronchodilator spirometry, plethysmography and diffusing capacity. The test was performed and results interpreted in accordance with the 2019 and 2005 ATS/ERS Task Force guidelines respectively using the Global Lung Function Initiative-2012 reference equations. Patient demonstrated good effort and cooperation. Reproducibility criteria were met. The quality of the pre bronchodilator spirometry maneuver was Grade A and post bronchodilator spirometry maneuver was Grade A. Findings: Spirometry: The contour the expiratory flow tracing is notched in all pre and post bronchodilator efforts. The contour the inspiratory flow tracing is normal. The pre bronchodilator FVC is 2.13 L, 80% predicted. The pre bronchodilator FEV1 is 1.70 L, 84% predicted. The pre bronchodilator FEV1: FVC ratio is 80%. The post bronchodilator FVC is 2.14 L, representing no change. The post bronchodilator FEV1 is 1.69 L, representing a 1% decrease. The post bronchodilator FEV1: FVC ratio 79%. Plethysmography: The total lung capacity is 3.85 L, 74% predicted. The functional residual capacity is 1.73 L, 58% predicted. The residual volume is 1.55 L, 64% predicted. Diffusing capacity: The diffusing capacity unadjusted for hemoglobin and carboxyhemoglobin is 9.5, 48% predicted. The diffusing capacity adjusted for alveolar volume is 2.72, 66% predicted. Impression: The contour of the expiratory flow tracing demonstrates a reproducible notched pattern. The notched pattern has been described with coughing or tracheobronchomalacia. The contour the inspiratory flow tracing is normal. Otherwise, the spirometry is normal without evidence of an obstructive abnormality. There is a mild restrictive ventilatory abnormality with a normal FEV1. There is no significant improvement after inhaling a single dose of albuterol. The diffusing capacity unadjusted for hemoglobin and carboxyhemoglobin is moderately decreased and remains mildly decreased when adjusted for alveolar volume. There are no prior studies for comparison 09/20/2022: EXAMINATION: CT chest high resolution wo co DATE: 10/02/2021 12:18 INDICATION: Interstitial lung disease TECHNIQUE: Computed tomography (CT) of the chest was performed without intravenous contrast. The dose-length product was 517.08 mGy-cm. Automated exposure control and iterative reconstruction technique were employed. COMPARISON: Chest x-ray dated 08/18/2021 FINDINGS: There is mild mediastinal lymphadenopathy. AP window lymph node measuring 1 cm short axis. There is mild atherosclerosis of the aorta and coronary arteries. Borderline heart size. No significant pleural or pericardial effusion. Small hiatal hernia. Status post cholecystectomy with pneumobilia. There is a combination of peripheral interstitial lung disease with interlobular septal thickening and groundglass opacities. There is mild lower lobe bronchiectasis bilaterally. No pneumothorax. No endobronchial lesions. Mild emphysema. There is severe thoracic spondylosis with S-shaped scoliosis. No acute osseous abnormality. There are a few small nodules in both lungs measuring 2 mm or less, likely benign. IMPRESSION: 1. Coarse interstitial lung disease, likely chronic, in a pattern consistent with usual interstitial pneumonia (UIP). 2: Mild emphysema. 3: Mild mediastinal lymphadenopathy, likely reactive. 07/13/22: Echo Summary 1. Complete two-dimensional, color flow and Doppler transthoracic echocardiogram is performed. 2. Left ventricular chamber dimension is normal. 3. Left ventricular systolic function is hyperdynamic, estimated at >70%. 4. The left ventricular diastolic function is grade I diastolic dysfunction. 5. E/e' 9 is minimally elevated. 6. Left atrial chamber dimension is moderately enlarged. 7. There is mild aortic valve sclerosis. 8. No pulmonary hypertension, estimated pulmonary arterial systolic pressure is 24 mmHg. Right Ventricle Right ventricular systolic function is normal and with normal TAPSE 3.2 cm. Right ventricular chamber dimension is normal. Left Atria Left atrial chamber dimension is moderately enlarged. Right Atria Right atrial chamber dimension is normal. 02/15/22 - Split PSG - Mild sleep apnea with AHI 8.1 and desaturation to 78%. CPAP 8cmH2O EPR 1 and 2L/min supplemental O2 was recommended. * 12/08/21 - PFT - Spirometry is normal without evidence of obstructive abnormality. * 12/08/21 - 6mw on home requirement 2L/min - The patient's resting 2 L nasal canula oxygen saturation measured by pulse oximetry was 98% and heart rate was 66 bpm. Patient ambulated for 61 meters and oxygen saturation remained 93 to 98%. Heart rate at the end of the study was 85 bpm. Of note, during the recovery phase the patient desaturated to a abdelrahman of 85% at 6 minutes and 32 seconds. Patient saturations increased and were 91% at 7 minutes and 8 seconds. * 12/08/21 - Echo - LV systolic function normal, EF 55-60%. Grade I diastolic dysfunction. Moderate LA enlargement. Trace mitral valve regurgitation. * 10/02/21 - EXAMINATION: CT chest high resolution wo co DATE: 10/02/2021 12:18 INDICATION: Interstitial lung disease TECHNIQUE: Computed tomography (CT) of the chest was performed without intravenous contrast. The dose-length product was 517.08 mGy-cm. Automated exposure control and iterative reconstruction technique were employed. COMPARISON: Chest x-ray dated 08/18/2021 FINDINGS: There is mild mediastinal lymphadenopathy. AP window lymph node measuring 1 cm short axis. There is mild atherosclerosis of the aorta and coronary arteries. Borderline heart size. No significant pleural or pericardial effusion. Small hiatal hernia. Status post cholecystectomy with pneumobilia. There is a combination of peripheral interstitial lung disease with interlobular septal thickening and groundglass opacities. There is mild lower lobe bronchiectasis bilaterally. No pneumothorax. No endobronchial lesions. Mild emphysema. There is severe thoracic spondylosis with S-shaped scoliosis. No acute osseous abnormality. There are a few small nodules in both lungs measuring 2 mm or less, likely benign. IMPRESSION: 1. Coarse interstitial lung disease, likely chronic, in a pattern consistent with usual interstitial pneumonia (UIP). 2: Mild emphysema. 3: Mild mediastinal lymphadenopathy, likely reactive. Review of Systems Review of Systems: All systems reviewed & are unremarkable except as noted in HPI and below Exam Narrative: GEN: Alert, oriented to person, place. She is wearing 2 L/min, nasal cannula, sitting up in bed with HOB more than 45 degrees. Frequent moist coughing, clear secretions. NECK: Trachea is midline CHEST: decreased breath sounds in bases, expiratory wheezes with coughing, few crackles posteriorly in the bases. CV: Irregular S1S2 no m/g/r- atrial fib on monitor ABD : (+) bowel sounds Extremities : no clubbing, cyanosis, or edema. No calf tenderness. PSYCH: She is talking a lot, says that this is not her baseline, but she was worse mental status-duvall in September with a UTI. Speech is easy to understand, she can answer questions. Gait not tested. Objective Data Vital Signs Vital Signs: Vital Signs - 24 hr 03/03/25 12:00 03/03/25 12:00 03/03/25 12:00 Temperature 37.2 C Pulse Rate 89 86 Respiratory Rate 16 Blood Pressure 121/80 Pulse Oximetry 95 98 Oxygen Delivery High Flow Nasal Cannula Oxygen Flow Rate 5 03/03/25 13:19 03/03/25 13:28 03/03/25 14:00 Temperature Pulse Rate 89 87 110 H Respiratory Rate 20 20 Blood Pressure Pulse Oximetry Oxygen Delivery Oxygen Flow Rate 03/03/25 16:00 03/03/25 16:00 03/03/25 16:00 Temperature 36.9 C Pulse Rate 107 H 102 H Respiratory Rate 14 Blood Pressure 103/50 L Pulse Oximetry 98 99 Oxygen Delivery High Flow Nasal Cannula Oxygen Flow Rate 5 03/03/25 18:00 03/03/25 20:00 03/03/25 20:00 Temperature 37.3 C Pulse Rate 88 80 Respiratory Rate 20 Blood Pressure 131/90 Pulse Oximetry 97 99 Oxygen Delivery High Flow Therapy with Na Oxygen Flow Rate 4 03/03/25 20:00 03/03/25 20:05 03/03/25 20:07 Temperature Pulse Rate 86 80 Respiratory Rate 16 Blood Pressure Pulse Oximetry 100 Oxygen Delivery High Flow Nasal Cannula Oxygen Flow Rate 5 03/03/25 20:11 03/03/25 20:11 03/03/25 22:00 Temperature Pulse Rate 83 88 75 Respiratory Rate 16 Blood Pressure Pulse Oximetry 96 Oxygen Delivery CPAP Oxygen Flow Rate 03/03/25 23:56 03/04/25 00:00 03/04/25 00:00 Temperature 36.9 C Pulse Rate 81 67 Respiratory Rate 20 Blood Pressure 107/62 Pulse Oximetry 98 98 Oxygen Delivery CPAP Oxygen Flow Rate 03/04/25 02:00 03/04/25 02:15 03/04/25 02:16 Temperature Pulse Rate 68 88 88 Respiratory Rate 16 Blood Pressure Pulse Oximetry 96 Oxygen Delivery CPAP Oxygen Flow Rate 03/04/25 02:25 03/04/25 04:00 03/04/25 04:00 Temperature 36.6 C Pulse Rate 85 79 Respiratory Rate 16 20 Blood Pressure 111/68 Pulse Oximetry 99 100 Oxygen Delivery High Flow Nasal Cannula Oxygen Flow Rate 4 03/04/25 04:00 03/04/25 06:00 03/04/25 08:00 Temperature Pulse Rate 77 86 80 Respiratory Rate 16 Blood Pressure Pulse Oximetry 94 Oxygen Delivery Nasal Cannula Oxygen Flow Rate 2 03/04/25 08:19 03/04/25 08:43 03/04/25 09:17 Temperature 36.9 C Pulse Rate 86 73 75 Respiratory Rate 28 H 16 Blood Pressure 124/70 Pulse Oximetry 95 Oxygen Delivery Oxygen Flow Rate 03/04/25 09:20 03/04/25 09:23 Temperature Pulse Rate 80 Respiratory Rate 16 Blood Pressure Pulse Oximetry 94 Oxygen Delivery High Flow Nasal Cannula Oxygen Flow Rate 2 Intake/Output Intake/Output: Intake & Output 03/01/25 03/02/25 03/03/25 03/04/25 23:59 23:59 23:59 23:59 Intake Total 680 1420 2247.9 540 Output Total 5200 640 1100 200 Balance -4520 780 1147.9 340 Meds/Results Medications: Active Medications Generic Name Dose Route Start Last Admin Trade Name Freq PRN Reason Stop Dose Admin Acetaminophen 650 mg 02/25/25 02:42 03/03/25 18:24 Acetaminophen 325 Mg Tablet PO 650 mg Q4H PRN Administration Mild Pain (1-3) or Fever Albuterol 2.5 mg 02/25/25 15:24 Albuterol Sulfate Neb 2.5 Mg/3 Ml Inh INHALATION Q6HRT PRN Shortness Of Breath Or Wheezing Albuterol/Ipratropium 3 ml 02/25/25 08:00 03/04/25 09:17 Ipratropium 0.5 Mg/Albuterol Sulfate 2.5 Mg (Base) Ampul.Neb 3 Ml INHALATION 3 ml Q6HRT VIN Administration Amlodipine Besylate 10 mg 02/26/25 09:00 03/04/25 08:19 Amlodipine Besylate 10 Mg Tablet PO 10 mg DAILY VIN Administration Benzonatate 200 mg 02/27/25 22:00 03/04/25 05:52 Benzonatate 100 Mg Capsule PO 200 mg Q8HR VIN Administration Diclofenac Sodium 0 applic 02/25/25 15:24 Diclofenac Sodium 1% 100 Gm Gel (*Bkc) TOPICAL QID PRN JOINT PAIN Docusate Sodium 100 mg 02/25/25 21:00 03/04/25 08:19 Docusate Sodium 100 Mg Capsule PO 100 mg Q12HR VIN Administration Donepezil HCl 5 mg 02/25/25 21:00 03/03/25 22:28 Donepezil Hcl 5 Mg Tablet PO 5 mg QHS VIN Administration Enoxaparin Sodium 40 mg 03/01/25 09:00 03/04/25 08:20 Enoxaparin 40 Mg/0.4 Ml Syringe SUB-Q 40 mg DAILY VIN Administration Fish Oil 1 gm 02/26/25 09:00 03/04/25 08:19 [place] 3 Polyunsat Fatty Acids 1 Gm Cap PO 1 gm DAILY VIN Administration Fluoxetine HCl 20 mg 02/25/25 22:00 03/04/25 05:52 Fluoxetine Hcl 20 Mg Capsule PO 20 mg Q8HR VIN Administration Folic Acid 1 mg 02/26/25 09:00 03/04/25 08:20 Folic Acid 1 Mg Tablet PO 1 mg DAILY VIN Administration Gabapentin 300 mg 02/25/25 15:35 03/01/25 05:29 Gabapentin 300 Mg Capsule PO 300 mg On Hold: 03/01/25 13:41 Q8HR VIN Administration Guaifenesin 1,200 mg 02/25/25 21:00 03/04/25 08:19 Guaifenesin 12 Hr 600 Mg Tabcr PO 1,200 mg Q12HR VIN Administration Cefepime HCl 2 gm/ Sodium 50 mls @ 100 mls/hr 02/25/25 17:00 03/04/25 05:35 Chloride IVPB 03/07/25 18:00 Infused Q12H VIN Infusion Doxycycline Hyclate 100 mg/ 100 mls @ 100 mls/hr 03/02/25 09:00 03/03/25 21:58 Sodium Chloride IVPB Infused Q12HR VIN Infusion Levothyroxine Sodium 150 mcg 02/26/25 06:30 03/04/25 05:52 Levothyroxine Sodium 150 Mcg Tablet PO 150 mcg DAILY@0630 VIN Administration Lidocaine 1 patch 02/26/25 09:00 03/03/25 08:53 Lidocaine 5% Patch TRANSDERM 1 patch DAILY VIN Administration Loratadine 10 mg 02/25/25 15:24 03/03/25 08:52 Loratadine 10 Mg Tablet PO 10 mg DAILY PRN Administration allergy symptoms Lorazepam 2 mg 02/26/25 23:03 03/03/25 19:07 Lorazepam (*Crx) 1 Mg Tablet PO 2 mg Q4H PRN Administration Anxiety Metoprolol Succinate 50 mg 03/03/25 09:00 03/04/25 08:19 Metoprolol Succinate Ext Rel 50 Mg Tabcr PO 50 mg QAM VIN Administration Montelukast Sodium 10 mg 02/26/25 09:00 03/04/25 08:19 Montelukast Sodium 10 Mg Tablet PO 10 mg DAILY VIN Administration Ondansetron HCl 4 mg 02/25/25 02:42 Ondansetron Inj 4 Mg/2 Ml Vial IV PUSH Q4H PRN Nausea Pantoprazole Sodium 40 mg 02/25/25 21:00 03/04/25 08:19 Pantoprazole 40 Mg Tablet PO 40 mg Q12HR VIN Administration Potassium Chloride 20 meq 03/02/25 09:40 03/04/25 08:19 Potassium Chloride 20 Meq Er Tablet PO 20 meq BID VIN Administration Pravastatin Sodium 40 mg 02/26/25 09:00 03/04/25 08:19 Pravastatin Sodium 20 Mg Tablet PO 40 mg DAILY VIN Administration Sodium Chloride 500 mg 02/28/25 09:00 03/04/25 08:19 Sodium Chloride 500 Mg Tablet PO 500 mg QAM VIN Administration Spironolactone 25 mg 02/26/25 09:00 03/04/25 08:19 Spironolactone 25 Mg Tablet PO 25 mg DAILY VIN Administration Telmisartan 40 mg 02/25/25 21:00 03/04/25 08:19 Telmisartan 40 Mg Tablet PO 40 mg Q12HR VIN Administration Vitamin D 50 mcg 02/26/25 09:00 03/04/25 08:19 Cholecalciferol (Vitamin D3) 25 Mcg (1,000 Units) Tablet PO 50 mcg DAILY VIN Administration Radiology Results: ITS Impressions Modified Barium Swallow 02/27/25 12:16 IMPRESSION: Laryngeal penetration without aspiration. Please correlate with speech pathologist findings and specific feeding recommendations. Chest CTA 02/27/25 13:55 IMPRESSION: 1. No PE. 2. Acute scattered bilateral pneumonitis. Head CT 03/02/25 11:10 IMPRESSION: 1. No acute intracranial findings. Chest X-Ray 03/04/25 07:23 Impression: 1: Cardiomegaly with pulmonary edema. Labs Labs: Laboratory Results - last 24 hr 03/03/25 03/04/25 13:55 03:50 WBC 9.0 RBC 2.70 L Hgb 8.7 L Hct 26.1 L MCV 96.7 MCH 32.2 MCHC 33.3 RDW 14.4 Plt Count 121 L MPV 11.5 H Immature Gran % (Auto) 2.4 H Neut % (Auto) 68.6 Lymph % (Auto) 11.1 L [place] % (Auto) 17.0 H Eos % (Auto) 0.7 Baso % (Auto) 0.2 Lymph # (Auto) 1.00 [place] # (Auto) 1.5 H Eos # (Auto) 0.1 Baso # (Auto) 0.0 Abs Immat Gran (auto) 0.22 H Absolute Neuts (auto) 6.2 Absolute Nucleated RBC 0.000 Nucleated RBC % 0.0 % Immature Plt Fraction 7.2 Sodium 129 L Potassium 3.8 Chloride 96 L Carbon Dioxide 31 H Anion Gap 2 L BUN 19 H Creatinine 0.73 Estim Creat Clear Calc 62 Estimated GFR > 60 Glucose 103 Calcium 9.2 Magnesium 1.8 Total Bilirubin 1.5 H AST 24 ALT 29 Alkaline Phosphatase 78 NT-Pro-B Natriuret Pep 6040 H Total Protein 6.1 L Albumin 3.5 Stl Occult Blood (IFOB) Negative
--- NOTE | 2025-03-04 11:53 | P.PNCA_ITS ---
Progress Note: A&P Assessment and Plan (1) Atrial fibrillation: Code(s): I48.91 - Unspecified atrial fibrillation Status: Acute Plan - Persistent atrial fibrillation - GI bleed - History of hypertension - History of hypothyroidism - Regards to atrial fibrillation, continue metoprolol for rate control. Anticoagulation was stopped because of anemia and GI bleed. - In regards to hypertension controlled. Continue metoprolol, spironolactone, amlodipine. - Regards to diastolic heart failure, she received IV Lasix for a couple days. Continue spironolactone. Will resume furosemide at 20 mg daily and re-evaluate. . Today sodium is drifting down to 129. Previously her sodium was low at 126. Subjective Date/time seen: 03/04/25 11:53 Interval history: Patient is resting comfortably in the bedside chair. Nasal cannula oxygen placed. Patient back in atrial fibrillation this morning heart rate is in the 90s to low 100s. She is unaware of this. No symptoms of palpitations or awareness of her arrhythmia. 03/03/2025: Patient is confused somewhat encephalopathic but comfortable this morning. She seems to be pleasantly confused. The AFib persists heart rate is well controlled with metoprolol Date of service 03/04/2025- Review of Systems Review of Systems: ROS unobtainable: Yes unobtainable due to mental status Cardiovascular: Cardiovascular: Reports as per HPI Respiratory: Respiratory: Reports as per HPI Exam Const: General: comfortable, no acute distress, alert and awake Orientation/consciousness: patient oriented x3 Other: Elderly lady who is confused according to staff has significant baseline dementia. HENMT: Head: normal to inspection Mouth: Yes moist mucous membranes Eyes: General: appearance normal, both eyes and all related structures Pupils: Equal, round and reactive pupils present EOM: EOMs intact bilaterally Neck: Neck: normal visual inspection, supple and no JVD Carotids: normal carotid upstroke Resp: Effort & Inspection: normal respiratory effort Auscultation: rales, rhonchi and wheezes Cardio: Rate: regular rate Rhythm: regular rhythm and abnormal rhythm irregularly irregular Heart sounds: S1 normal heart sound present, S2 normal heart sound present and Murmur heart sound present GI: Auscultation: normal bowel sounds Skin: General skin exam: normal color Neuro: General: patient oriented x3 Cranial nerves: Yes Equal, round and reactive pupils present Extrem: General: edema and pedal edema Other: trace bilateral pretibial edema Psych: Appearance: grossly normal Mental Status: mental status grossly abnormal Objective Data Vital Signs Vital Signs: Vital Signs - 24 hr 03/03/25 12:00 03/03/25 12:00 03/03/25 12:00 Temperature 37.2 C Pulse Rate 89 86 Respiratory Rate 16 Blood Pressure 121/80 Pulse Oximetry 95 98 Oxygen Delivery High Flow Nasal Cannula Oxygen Flow Rate 5 03/03/25 13:19 03/03/25 13:28 03/03/25 14:00 Temperature Pulse Rate 89 87 110 H Respiratory Rate 20 20 Blood Pressure Pulse Oximetry Oxygen Delivery Oxygen Flow Rate 03/03/25 16:00 03/03/25 16:00 03/03/25 16:00 Temperature 36.9 C Pulse Rate 107 H 102 H Respiratory Rate 14 Blood Pressure 103/50 L Pulse Oximetry 98 99 Oxygen Delivery High Flow Nasal Cannula Oxygen Flow Rate 5 03/03/25 18:00 03/03/25 20:00 03/03/25 20:00 Temperature 37.3 C Pulse Rate 88 80 Respiratory Rate 20 Blood Pressure 131/90 Pulse Oximetry 97 99 Oxygen Delivery High Flow Therapy with Na Oxygen Flow Rate 4 03/03/25 20:00 03/03/25 20:05 03/03/25 20:07 Temperature Pulse Rate 86 80 Respiratory Rate 16 Blood Pressure Pulse Oximetry 100 Oxygen Delivery High Flow Nasal Cannula Oxygen Flow Rate 5 03/03/25 20:11 03/03/25 20:11 03/03/25 22:00 Temperature Pulse Rate 83 88 75 Respiratory Rate 16 Blood Pressure Pulse Oximetry 96 Oxygen Delivery CPAP Oxygen Flow Rate 03/03/25 23:56 03/04/25 00:00 03/04/25 00:00 Temperature 36.9 C Pulse Rate 81 67 Respiratory Rate 20 Blood Pressure 107/62 Pulse Oximetry 98 98 Oxygen Delivery CPAP Oxygen Flow Rate 03/04/25 02:00 03/04/25 02:15 03/04/25 02:16 Temperature Pulse Rate 68 88 88 Respiratory Rate 16 Blood Pressure Pulse Oximetry 96 Oxygen Delivery CPAP Oxygen Flow Rate 03/04/25 02:25 03/04/25 04:00 03/04/25 04:00 Temperature 36.6 C Pulse Rate 85 79 Respiratory Rate 16 20 Blood Pressure 111/68 Pulse Oximetry 99 100 Oxygen Delivery High Flow Nasal Cannula Oxygen Flow Rate 4 03/04/25 04:00 03/04/25 06:00 03/04/25 08:00 Temperature Pulse Rate 77 86 80 Respiratory Rate 16 Blood Pressure Pulse Oximetry 94 Oxygen Delivery Nasal Cannula Oxygen Flow Rate 2 03/04/25 08:19 03/04/25 08:43 03/04/25 09:17 Temperature 36.9 C Pulse Rate 86 73 75 Respiratory Rate 28 H 16 Blood Pressure 124/70 Pulse Oximetry 95 Oxygen Delivery Oxygen Flow Rate 03/04/25 09:20 03/04/25 09:23 03/04/25 11:50 Temperature 36.9 C Pulse Rate 80 59 L Respiratory Rate 16 12 Blood Pressure 125/75 Pulse Oximetry 94 94 Oxygen Delivery High Flow Nasal Cannula Oxygen Flow Rate 2 Intake/Output Intake/Output: Intake & Output 03/01/25 03/02/25 03/03/25 03/04/25 23:59 23:59 23:59 23:59 Intake Total 680 1420 2247.9 540 Output Total 5200 640 1100 200 Balance -4520 780 1147.9 340 Meds/Results Medications: Active Medications Generic Name Dose Route Start Last Admin Trade Name Freq PRN Reason Stop Dose Admin Acetaminophen 650 mg 02/25/25 02:42 03/03/25 18:24 Acetaminophen 325 Mg Tablet PO 650 mg Q4H PRN Administration Mild Pain (1-3) or Fever Albuterol 2.5 mg 02/25/25 15:24 Albuterol Sulfate Neb 2.5 Mg/3 Ml Inh INHALATION Q6HRT PRN Shortness Of Breath Or Wheezing Albuterol/Ipratropium 3 ml 02/25/25 08:00 03/04/25 09:17 Ipratropium 0.5 Mg/Albuterol Sulfate 2.5 Mg (Base) Ampul.Neb 3 Ml INHALATION 3 ml Q6HRT VIN Administration Amlodipine Besylate 10 mg 02/26/25 09:00 03/04/25 08:19 Amlodipine Besylate 10 Mg Tablet PO 10 mg DAILY VIN Administration Benzonatate 200 mg 02/27/25 22:00 03/04/25 05:52 Benzonatate 100 Mg Capsule PO 200 mg Q8HR VIN Administration Diclofenac Sodium 0 applic 02/25/25 15:24 Diclofenac Sodium 1% 100 Gm Gel (*Bkc) TOPICAL QID PRN JOINT PAIN Docusate Sodium 100 mg 02/25/25 21:00 03/04/25 08:19 Docusate Sodium 100 Mg Capsule PO 100 mg Q12HR VIN Administration Donepezil HCl 5 mg 02/25/25 21:00 03/03/25 22:28 Donepezil Hcl 5 Mg Tablet PO 5 mg QHS VIN Administration Enoxaparin Sodium 40 mg 03/01/25 09:00 03/04/25 08:20 Enoxaparin 40 Mg/0.4 Ml Syringe SUB-Q 40 mg DAILY VIN Administration Fish Oil 1 gm 02/26/25 09:00 03/04/25 08:19 [place] 3 Polyunsat Fatty Acids 1 Gm Cap PO 1 gm DAILY VIN Administration Fluoxetine HCl 20 mg 02/25/25 22:00 03/04/25 05:52 Fluoxetine Hcl 20 Mg Capsule PO 20 mg Q8HR VIN Administration Folic Acid 1 mg 02/26/25 09:00 03/04/25 08:20 Folic Acid 1 Mg Tablet PO 1 mg DAILY VIN Administration Gabapentin 300 mg 02/25/25 15:35 03/01/25 05:29 Gabapentin 300 Mg Capsule PO 300 mg On Hold: 03/01/25 13:41 Q8HR VIN Administration Guaifenesin 1,200 mg 02/25/25 21:00 03/04/25 08:19 Guaifenesin 12 Hr 600 Mg Tabcr PO 1,200 mg Q12HR VIN Administration Cefepime HCl 2 gm/ Sodium 50 mls @ 100 mls/hr 02/25/25 17:00 03/04/25 05:35 Chloride IVPB 03/07/25 18:00 Infused Q12H VIN Infusion Doxycycline Hyclate 100 mg/ 100 mls @ 100 mls/hr 03/02/25 09:00 03/03/25 21:58 Sodium Chloride IVPB Infused Q12HR VIN Infusion Levothyroxine Sodium 150 mcg 02/26/25 06:30 03/04/25 05:52 Levothyroxine Sodium 150 Mcg Tablet PO 150 mcg DAILY@0630 VIN Administration Lidocaine 1 patch 02/26/25 09:00 03/03/25 08:53 Lidocaine 5% Patch TRANSDERM 1 patch DAILY VIN Administration Loratadine 10 mg 02/25/25 15:24 03/03/25 08:52 Loratadine 10 Mg Tablet PO 10 mg DAILY PRN Administration allergy symptoms Lorazepam 2 mg 02/26/25 23:03 03/03/25 19:07 Lorazepam (*Crx) 1 Mg Tablet PO 2 mg Q4H PRN Administration Anxiety Metoprolol Succinate 50 mg 03/03/25 09:00 03/04/25 08:19 Metoprolol Succinate Ext Rel 50 Mg Tabcr PO 50 mg QAM VIN Administration Montelukast Sodium 10 mg 02/26/25 09:00 03/04/25 08:19 Montelukast Sodium 10 Mg Tablet PO 10 mg DAILY VIN Administration Ondansetron HCl 4 mg 02/25/25 02:42 Ondansetron Inj 4 Mg/2 Ml Vial IV PUSH Q4H PRN Nausea Pantoprazole Sodium 40 mg 02/25/25 21:00 03/04/25 08:19 Pantoprazole 40 Mg Tablet PO 40 mg Q12HR VIN Administration Potassium Chloride 20 meq 03/02/25 09:40 03/04/25 08:19 Potassium Chloride 20 Meq Er Tablet PO 20 meq BID VIN Administration Pravastatin Sodium 40 mg 02/26/25 09:00 03/04/25 08:19 Pravastatin Sodium 20 Mg Tablet PO 40 mg DAILY VIN Administration Sodium Chloride 500 mg 02/28/25 09:00 03/04/25 08:19 Sodium Chloride 500 Mg Tablet PO 500 mg QAM VIN Administration Spironolactone 25 mg 02/26/25 09:00 03/04/25 08:19 Spironolactone 25 Mg Tablet PO 25 mg DAILY VIN Administration Telmisartan 40 mg 02/25/25 21:00 03/04/25 08:19 Telmisartan 40 Mg Tablet PO 40 mg Q12HR VIN Administration Vitamin D 50 mcg 02/26/25 09:00 03/04/25 08:19 Cholecalciferol (Vitamin D3) 25 Mcg (1,000 Units) Tablet PO 50 mcg DAILY VIN Administration Radiology Results: ITS Impressions Modified Barium Swallow 02/27/25 12:16 IMPRESSION: Laryngeal penetration without aspiration. Please correlate with speech pathologist findings and specific feeding recommendations. Chest CTA 02/27/25 13:55 IMPRESSION: 1. No PE. 2. Acute scattered bilateral pneumonitis. Head CT 03/02/25 11:10 IMPRESSION: 1. No acute intracranial findings. Chest X-Ray 03/04/25 07:23 Impression: 1: Cardiomegaly with pulmonary edema. Labs Labs: Laboratory Results - last 24 hr 03/03/25 03/04/25 13:55 03:50 WBC 9.0 RBC 2.70 L Hgb 8.7 L Hct 26.1 L MCV 96.7 MCH 32.2 MCHC 33.3 RDW 14.4 Plt Count 121 L MPV 11.5 H Immature Gran % (Auto) 2.4 H Neut % (Auto) 68.6 Lymph % (Auto) 11.1 L [place] % (Auto) 17.0 H Eos % (Auto) 0.7 Baso % (Auto) 0.2 Lymph # (Auto) 1.00 [place] # (Auto) 1.5 H Eos # (Auto) 0.1 Baso # (Auto) 0.0 Abs Immat Gran (auto) 0.22 H Absolute Neuts (auto) 6.2 Absolute Nucleated RBC 0.000 Nucleated RBC % 0.0 % Immature Plt Fraction 7.2 Sodium 129 L Potassium 3.8 Chloride 96 L Carbon Dioxide 31 H Anion Gap 2 L BUN 19 H Creatinine 0.73 Estim Creat Clear Calc 62 Estimated GFR > 60 Glucose 103 Calcium 9.2 Magnesium 1.8 Total Bilirubin 1.5 H AST 24 ALT 29 Alkaline Phosphatase 78 NT-Pro-B Natriuret Pep 6040 H Total Protein 6.1 L Albumin 3.5 Stl Occult Blood (IFOB) Negative
[2025-03-04] MEDS: FUROSEMIDE 20 MG TABLET PO (12:40)
--- NOTE | 2025-03-04 14:24 | WPDGIPROGNO ---
Progress Note: A&P Assessment and Plan (1) Anemia of chronic disease: Code(s): D63.8 - Anemia in other chronic diseases classified elsewhere Status: Acute (2) Hematochezia: Code(s): K92.1 - Melena Status: Acute Plan 79-year-old female with history of GI bleed. There is no further bleeding. Patient did have respiratory distress but she is improving. Her hemoglobin level today is 8.7, stable. Discuss her medical condition with her and her . Endoscopy with another patient. Will see the patient as needed. Time Spent With Patient Time with patient: 15 - 25 minutes Subjective Date/time seen: 03/04/25 14:24 Interval history: Hematemesis, resolved. No nausea vomiting. No abdominal pain. No rectal bleeding. Review of Systems Review of Systems: ROS unobtainable: Yes unobtainable due to mental status Cardiovascular: Cardiovascular: Reports as per HPI Respiratory: Respiratory: Reports as per HPI Exam Const: General: comfortable, no acute distress, alert and awake Orientation/consciousness: patient oriented x3 Other: Elderly lady who is confused according to staff has significant baseline dementia. HENMT: Head: normal to inspection Mouth: Yes moist mucous membranes Eyes: General: appearance normal, both eyes and all related structures Pupils: Equal, round and reactive pupils present EOM: EOMs intact bilaterally Neck: Neck: normal visual inspection, supple and no JVD Carotids: normal carotid upstroke Resp: Effort & Inspection: normal respiratory effort Auscultation: rales, rhonchi and wheezes Cardio: Rate: regular rate Rhythm: regular rhythm and abnormal rhythm irregularly irregular Heart sounds: S1 normal heart sound present, S2 normal heart sound present and Murmur heart sound present GI: Auscultation: normal bowel sounds Skin: General skin exam: normal color Neuro: General: patient oriented x3 Cranial nerves: Yes Equal, round and reactive pupils present Extrem: General: edema and pedal edema Other: trace bilateral pretibial edema Psych: Appearance: grossly normal Mental Status: mental status grossly abnormal Objective Data Vital Signs Vital Signs: Vital Signs - 24 hr 03/03/25 16:00 03/03/25 16:00 03/03/25 16:00 Temperature 98.5 F Pulse Rate 107 H 102 H Respiratory Rate 14 Blood Pressure 103/50 L Pulse Oximetry 98 99 Oxygen Delivery High Flow Nasal Cannula Oxygen Flow Rate 5 03/03/25 18:00 03/03/25 20:00 03/03/25 20:00 Temperature 99.2 F Pulse Rate 88 80 Respiratory Rate 20 Blood Pressure 131/90 Pulse Oximetry 97 99 Oxygen Delivery High Flow Therapy with Na Oxygen Flow Rate 4 03/03/25 20:00 03/03/25 20:05 03/03/25 20:07 Temperature Pulse Rate 86 80 Respiratory Rate 16 Blood Pressure Pulse Oximetry 100 Oxygen Delivery High Flow Nasal Cannula Oxygen Flow Rate 5 03/03/25 20:11 03/03/25 20:11 03/03/25 22:00 Temperature Pulse Rate 83 88 75 Respiratory Rate 16 Blood Pressure Pulse Oximetry 96 Oxygen Delivery CPAP Oxygen Flow Rate 03/03/25 23:56 03/04/25 00:00 03/04/25 00:00 Temperature 98.4 F Pulse Rate 81 67 Respiratory Rate 20 Blood Pressure 107/62 Pulse Oximetry 98 98 Oxygen Delivery CPAP Oxygen Flow Rate 03/04/25 02:00 03/04/25 02:15 03/04/25 02:16 Temperature Pulse Rate 68 88 88 Respiratory Rate 16 Blood Pressure Pulse Oximetry 96 Oxygen Delivery CPAP Oxygen Flow Rate 03/04/25 02:25 03/04/25 04:00 03/04/25 04:00 Temperature 97.9 F Pulse Rate 85 79 Respiratory Rate 16 20 Blood Pressure 111/68 Pulse Oximetry 99 100 Oxygen Delivery High Flow Nasal Cannula Oxygen Flow Rate 4 03/04/25 04:00 03/04/25 06:00 03/04/25 08:00 Temperature Pulse Rate 77 86 80 Respiratory Rate 16 Blood Pressure Pulse Oximetry 94 Oxygen Delivery Nasal Cannula Oxygen Flow Rate 2 03/04/25 08:19 03/04/25 08:43 03/04/25 09:17 Temperature 98.4 F Pulse Rate 86 73 75 Respiratory Rate 28 H 16 Blood Pressure 124/70 Pulse Oximetry 95 Oxygen Delivery Oxygen Flow Rate 03/04/25 09:20 03/04/25 09:23 03/04/25 11:50 Temperature 98.4 F Pulse Rate 80 59 L Respiratory Rate 16 12 Blood Pressure 125/75 Pulse Oximetry 94 94 Oxygen Delivery High Flow Nasal Cannula Oxygen Flow Rate 2 03/04/25 12:00 Temperature Pulse Rate 59 L Respiratory Rate 12 Blood Pressure Pulse Oximetry 94 Oxygen Delivery Nasal Cannula Oxygen Flow Rate 2 Intake/Output Intake/Output: Intake & Output 03/01/25 03/02/25 03/03/25 03/04/25 23:59 23:59 23:59 23:59 Intake Total 680 1420 2247.9 840 Output Total 5200 640 1100 200 Balance -4520 780 1147.9 640 Meds/Results Medications: Active Medications Generic Name Dose Route Start Last Admin Trade Name Freq PRN Reason Stop Dose Admin Acetaminophen 650 mg 02/25/25 02:42 03/03/25 18:24 Acetaminophen 325 Mg Tablet PO 650 mg Q4H PRN Administration Mild Pain (1-3) or Fever Albuterol 2.5 mg 02/25/25 15:24 Albuterol Sulfate Neb 2.5 Mg/3 Ml Inh INHALATION Q6HRT PRN Shortness Of Breath Or Wheezing Albuterol/Ipratropium 3 ml 02/25/25 08:00 03/04/25 09:17 Ipratropium 0.5 Mg/Albuterol Sulfate 2.5 Mg (Base) Ampul.Neb 3 Ml INHALATION 3 ml Q6HRT VIN Administration Amlodipine Besylate 10 mg 02/26/25 09:00 03/04/25 08:19 Amlodipine Besylate 10 Mg Tablet PO 10 mg DAILY VIN Administration Benzonatate 200 mg 02/27/25 22:00 03/04/25 05:52 Benzonatate 100 Mg Capsule PO 200 mg Q8HR VIN Administration Diclofenac Sodium 0 applic 02/25/25 15:24 Diclofenac Sodium 1% 100 Gm Gel (*Bkc) TOPICAL QID PRN JOINT PAIN Docusate Sodium 100 mg 02/25/25 21:00 03/04/25 08:19 Docusate Sodium 100 Mg Capsule PO 100 mg Q12HR VIN Administration Donepezil HCl 5 mg 02/25/25 21:00 03/03/25 22:28 Donepezil Hcl 5 Mg Tablet PO 5 mg QHS VIN Administration Enoxaparin Sodium 40 mg 03/01/25 09:00 03/04/25 08:20 Enoxaparin 40 Mg/0.4 Ml Syringe SUB-Q 40 mg DAILY VIN Administration Fish Oil 1 gm 02/26/25 09:00 03/04/25 08:19 [place] 3 Polyunsat Fatty Acids 1 Gm Cap PO 1 gm DAILY VIN Administration Fluoxetine HCl 20 mg 02/25/25 22:00 03/04/25 05:52 Fluoxetine Hcl 20 Mg Capsule PO 20 mg Q8HR VIN Administration Folic Acid 1 mg 02/26/25 09:00 03/04/25 08:20 Folic Acid 1 Mg Tablet PO 1 mg DAILY VIN Administration Furosemide 20 mg 03/04/25 12:10 03/04/25 12:40 Furosemide 20 Mg Tablet PO 20 mg DAILY VIN Administration Gabapentin 300 mg 02/25/25 15:35 03/01/25 05:29 Gabapentin 300 Mg Capsule PO 300 mg On Hold: 03/01/25 13:41 Q8HR VIN Administration Guaifenesin 1,200 mg 02/25/25 21:00 03/04/25 08:19 Guaifenesin 12 Hr 600 Mg Tabcr PO 1,200 mg Q12HR VIN Administration Cefepime HCl 2 gm/ Sodium 50 mls @ 100 mls/hr 02/25/25 17:00 03/04/25 05:35 Chloride IVPB 03/07/25 18:00 Infused Q12H VIN Infusion Doxycycline Hyclate 100 mg/ 100 mls @ 100 mls/hr 03/02/25 09:00 03/04/25 08:20 Sodium Chloride IVPB 100 mls/hr Q12HR VIN Administration Levothyroxine Sodium 150 mcg 02/26/25 06:30 03/04/25 05:52 Levothyroxine Sodium 150 Mcg Tablet PO 150 mcg DAILY@0630 VIN Administration Lidocaine 1 patch 02/26/25 09:00 03/04/25 08:20 Lidocaine 5% Patch TRANSDERM 1 patch DAILY VIN Administration Loratadine 10 mg 02/25/25 15:24 03/03/25 08:52 Loratadine 10 Mg Tablet PO 10 mg DAILY PRN Administration allergy symptoms Lorazepam 2 mg 02/26/25 23:03 03/03/25 19:07 Lorazepam (*Crx) 1 Mg Tablet PO 2 mg Q4H PRN Administration Anxiety Metoprolol Succinate 50 mg 03/03/25 09:00 03/04/25 08:19 Metoprolol Succinate Ext Rel 50 Mg Tabcr PO 50 mg QAM VIN Administration Montelukast Sodium 10 mg 02/26/25 09:00 03/04/25 08:19 Montelukast Sodium 10 Mg Tablet PO 10 mg DAILY VIN Administration Ondansetron HCl 4 mg 02/25/25 02:42 Ondansetron Inj 4 Mg/2 Ml Vial IV PUSH Q4H PRN Nausea Pantoprazole Sodium 40 mg 02/25/25 21:00 03/04/25 08:19 Pantoprazole 40 Mg Tablet PO 40 mg Q12HR VIN Administration Potassium Chloride 20 meq 03/02/25 09:40 03/04/25 08:19 Potassium Chloride 20 Meq Er Tablet PO 20 meq BID VIN Administration Pravastatin Sodium 40 mg 02/26/25 09:00 03/04/25 08:19 Pravastatin Sodium 20 Mg Tablet PO 40 mg DAILY VIN Administration Sodium Chloride 500 mg 02/28/25 09:00 03/04/25 08:19 Sodium Chloride 500 Mg Tablet PO 500 mg QAM VIN Administration Spironolactone 25 mg 02/26/25 09:00 03/04/25 08:19 Spironolactone 25 Mg Tablet PO 25 mg DAILY VIN Administration Telmisartan 40 mg 02/25/25 21:00 03/04/25 08:19 Telmisartan 40 Mg Tablet PO 40 mg Q12HR VIN Administration Vitamin D 50 mcg 02/26/25 09:00 03/04/25 08:19 Cholecalciferol (Vitamin D3) 25 Mcg (1,000 Units) Tablet PO 50 mcg DAILY VIN Administration Radiology Results: ITS Impressions Modified Barium Swallow 02/27/25 12:16 IMPRESSION: Laryngeal penetration without aspiration. Please correlate with speech pathologist findings and specific feeding recommendations. Chest CTA 02/27/25 13:55 IMPRESSION: 1. No PE. 2. Acute scattered bilateral pneumonitis. Head CT 03/02/25 11:10 IMPRESSION: 1. No acute intracranial findings. Chest X-Ray 03/04/25 07:23 Impression: 1: Cardiomegaly with pulmonary edema. Labs Labs: Laboratory Results - last 24 hr 03/04/25 03:50 WBC 9.0 RBC 2.70 L Hgb 8.7 L Hct 26.1 L MCV 96.7 MCH 32.2 MCHC 33.3 RDW 14.4 Plt Count 121 L MPV 11.5 H Immature Gran % (Auto) 2.4 H Neut % (Auto) 68.6 Lymph % (Auto) 11.1 L [place] % (Auto) 17.0 H Eos % (Auto) 0.7 Baso % (Auto) 0.2 Lymph # (Auto) 1.00 [place] # (Auto) 1.5 H Eos # (Auto) 0.1 Baso # (Auto) 0.0 Abs Immat Gran (auto) 0.22 H Absolute Neuts (auto) 6.2 Absolute Nucleated RBC 0.000 Nucleated RBC % 0.0 % Immature Plt Fraction 7.2 Sodium 129 L Potassium 3.8 Chloride 96 L Carbon Dioxide 31 H Anion Gap 2 L BUN 19 H Creatinine 0.73 Estim Creat Clear Calc 62 Estimated GFR > 60 Glucose 103 Calcium 9.2 Magnesium 1.8 Total Bilirubin 1.5 H AST 24 ALT 29 Alkaline Phosphatase 78 NT-Pro-B Natriuret Pep 6040 H Total Protein 6.1 L Albumin 3.5
--- NOTE | 2025-03-04 15:08 | P.PNIM_ITS ---
Assessment and Plan Assessment and Plan (1) Acute exacerbation of CHF (congestive heart failure): Qualifiers: Heart failure type: diastolic Qualified Code(s): I50.33 - Acute on chronic diastolic (congestive) heart failure Code(s): I50.9 - Heart failure, unspecified Status: Acute Plan Rate controlled. Continue antihypertensives, beta-taco. Transfer to medical floor as she is stable. We are only awaiting authorization for her to be discharged to SNF with rehab. We will get GI opinion on restarting antico agulation although at this time since EGD was deferred we may have to hold off. Hemoglobin stable. Leukocytosis resolved. Sodium slightly lower today at 129. Continue sodium tablets, Lasix 20 mg p.o. q.day. monitor volume status, breathing, electrolytes. Full code. Time Spent With Patient Time with patient: Greater than 35 minutes Subjective Date/time seen: 03/04/25 15:08 Interval history: No acute overnight events. No changes. The patient now saturating well on 2 L. Review of Systems Review of Systems: All systems reviewed & are unremarkable except as noted in HPI and below (Subjective) Exam Const: General: comfortable and no acute distress HENMT: Mouth: Yes moist mucous membranes Eyes: Pupils: Equal, round and reactive pupils present Neck: Neck: supple Resp: Effort & Inspection: normal respiratory effort Auscultation: clear to auscultation bilaterally Cardio: Rate: regular rate Rhythm: abnormal rhythm GI: Inspection: non-distended GI Palp: Yes Soft to palpation Extrem: General: no edema Objective Data Vital Signs Vital Signs: Vital Signs - 24 hr 03/03/25 16:00 03/03/25 16:00 03/03/25 16:00 Temperature 98.5 F Pulse Rate 107 H 102 H Respiratory Rate 14 Blood Pressure 103/50 L Pulse Oximetry 98 99 Oxygen Delivery High Flow Nasal Cannula Oxygen Flow Rate 5 03/03/25 18:00 03/03/25 20:00 03/03/25 20:00 Temperature 99.2 F Pulse Rate 88 80 Respiratory Rate 20 Blood Pressure 131/90 Pulse Oximetry 97 99 Oxygen Delivery High Flow Therapy with Na Oxygen Flow Rate 4 03/03/25 20:00 03/03/25 20:05 03/03/25 20:07 Temperature Pulse Rate 86 80 Respiratory Rate 16 Blood Pressure Pulse Oximetry 100 Oxygen Delivery High Flow Nasal Cannula Oxygen Flow Rate 5 03/03/25 20:11 03/03/25 20:11 03/03/25 22:00 Temperature Pulse Rate 83 88 75 Respiratory Rate 16 Blood Pressure Pulse Oximetry 96 Oxygen Delivery CPAP Oxygen Flow Rate 03/03/25 23:56 03/04/25 00:00 03/04/25 00:00 Temperature 98.4 F Pulse Rate 81 67 Respiratory Rate 20 Blood Pressure 107/62 Pulse Oximetry 98 98 Oxygen Delivery CPAP Oxygen Flow Rate 03/04/25 02:00 03/04/25 02:15 03/04/25 02:16 Temperature Pulse Rate 68 88 88 Respiratory Rate 16 Blood Pressure Pulse Oximetry 96 Oxygen Delivery CPAP Oxygen Flow Rate 03/04/25 02:25 03/04/25 04:00 03/04/25 04:00 Temperature 97.9 F Pulse Rate 85 79 Respiratory Rate 16 20 Blood Pressure 111/68 Pulse Oximetry 99 100 Oxygen Delivery High Flow Nasal Cannula Oxygen Flow Rate 4 03/04/25 04:00 03/04/25 06:00 03/04/25 08:00 Temperature Pulse Rate 77 86 80 Respiratory Rate 16 Blood Pressure Pulse Oximetry 94 Oxygen Delivery Nasal Cannula Oxygen Flow Rate 2 03/04/25 08:00 03/04/25 08:19 03/04/25 08:43 Temperature 98.4 F Pulse Rate 100 86 73 Respiratory Rate 28 H Blood Pressure 124/70 Pulse Oximetry 95 Oxygen Delivery Oxygen Flow Rate 03/04/25 09:17 03/04/25 09:20 03/04/25 09:23 Temperature Pulse Rate 75 80 Respiratory Rate 16 16 Blood Pressure Pulse Oximetry 94 Oxygen Delivery High Flow Nasal Cannula Oxygen Flow Rate 2 03/04/25 10:00 03/04/25 11:50 03/04/25 12:00 Temperature 98.4 F Pulse Rate 83 59 L 59 L Respiratory Rate 12 12 Blood Pressure 125/75 Pulse Oximetry 94 94 Oxygen Delivery Nasal Cannula Oxygen Flow Rate 2 03/04/25 12:00 03/04/25 14:00 03/04/25 14:30 Temperature Pulse Rate 82 95 84 Respiratory Rate 16 Blood Pressure Pulse Oximetry Oxygen Delivery Oxygen Flow Rate 03/04/25 14:44 Temperature Pulse Rate 76 Respiratory Rate 16 Blood Pressure Pulse Oximetry Oxygen Delivery Oxygen Flow Rate Intake/Output Intake/Output: Intake & Output 03/01/25 03/02/25 03/03/25 03/04/25 23:59 23:59 23:59 23:59 Intake Total 680 1420 2247.9 1140 Output Total 5200 640 1100 200 Balance -4520 780 1147.9 940 Meds/Results Medications: Active Medications Generic Name Dose Route Start Last Admin Trade Name Freq PRN Reason Stop Dose Admin Acetaminophen 650 mg 02/25/25 02:42 03/03/25 18:24 Acetaminophen 325 Mg Tablet PO 650 mg Q4H PRN Administration Mild Pain (1-3) or Fever Albuterol 2.5 mg 02/25/25 15:24 Albuterol Sulfate Neb 2.5 Mg/3 Ml Inh INHALATION Q6HRT PRN Shortness Of Breath Or Wheezing Albuterol/Ipratropium 3 ml 02/25/25 08:00 03/04/25 14:29 Ipratropium 0.5 Mg/Albuterol Sulfate 2.5 Mg (Base) Ampul.Neb 3 Ml INHALATION 3 ml Q6HRT VIN Administration Amlodipine Besylate 10 mg 02/26/25 09:00 03/04/25 08:19 Amlodipine Besylate 10 Mg Tablet PO 10 mg DAILY VIN Administration Benzonatate 200 mg 02/27/25 22:00 03/04/25 05:52 Benzonatate 100 Mg Capsule PO 200 mg Q8HR VIN Administration Diclofenac Sodium 0 applic 02/25/25 15:24 Diclofenac Sodium 1% 100 Gm Gel (*Bkc) TOPICAL QID PRN JOINT PAIN Docusate Sodium 100 mg 02/25/25 21:00 03/04/25 08:19 Docusate Sodium 100 Mg Capsule PO 100 mg Q12HR VIN Administration Donepezil HCl 5 mg 02/25/25 21:00 03/03/25 22:28 Donepezil Hcl 5 Mg Tablet PO 5 mg QHS VIN Administration Fish Oil 1 gm 02/26/25 09:00 03/04/25 08:19 [place] 3 Polyunsat Fatty Acids 1 Gm Cap PO 1 gm DAILY VIN Administration Fluoxetine HCl 20 mg 02/25/25 22:00 03/04/25 05:52 Fluoxetine Hcl 20 Mg Capsule PO 20 mg Q8HR VIN Administration Folic Acid 1 mg 02/26/25 09:00 03/04/25 08:20 Folic Acid 1 Mg Tablet PO 1 mg DAILY VIN Administration Furosemide 20 mg 03/04/25 12:10 03/04/25 12:40 Furosemide 20 Mg Tablet PO 20 mg DAILY VIN Administration Gabapentin 300 mg 02/25/25 15:35 03/01/25 05:29 Gabapentin 300 Mg Capsule PO 300 mg On Hold: 03/01/25 13:41 Q8HR VIN Administration Levothyroxine Sodium 150 mcg 02/26/25 06:30 03/04/25 05:52 Levothyroxine Sodium 150 Mcg Tablet PO 150 mcg DAILY@0630 VIN Administration Lidocaine 1 patch 02/26/25 09:00 03/04/25 08:20 Lidocaine 5% Patch TRANSDERM 1 patch DAILY VIN Administration Loratadine 10 mg 02/25/25 15:24 03/03/25 08:52 Loratadine 10 Mg Tablet PO 10 mg DAILY PRN Administration allergy symptoms Lorazepam 2 mg 02/26/25 23:03 03/03/25 19:07 Lorazepam (*Crx) 1 Mg Tablet PO 2 mg Q4H PRN Administration Anxiety Metoprolol Succinate 50 mg 03/03/25 09:00 03/04/25 08:19 Metoprolol Succinate Ext Rel 50 Mg Tabcr PO 50 mg QAM VIN Administration Montelukast Sodium 10 mg 02/26/25 09:00 03/04/25 08:19 Montelukast Sodium 10 Mg Tablet PO 10 mg DAILY VIN Administration Ondansetron HCl 4 mg 02/25/25 02:42 Ondansetron Inj 4 Mg/2 Ml Vial IV PUSH Q4H PRN Nausea Pantoprazole Sodium 40 mg 02/25/25 21:00 03/04/25 08:19 Pantoprazole 40 Mg Tablet PO 40 mg Q12HR VIN Administration Potassium Chloride 20 meq 03/02/25 09:40 03/04/25 08:19 Potassium Chloride 20 Meq Er Tablet PO 20 meq BID VIN Administration Pravastatin Sodium 40 mg 02/26/25 09:00 03/04/25 08:19 Pravastatin Sodium 20 Mg Tablet PO 40 mg DAILY VIN Administration Sodium Chloride 500 mg 02/28/25 09:00 03/04/25 08:19 Sodium Chloride 500 Mg Tablet PO 500 mg QAM VIN Administration Spironolactone 25 mg 02/26/25 09:00 03/04/25 08:19 Spironolactone 25 Mg Tablet PO 25 mg DAILY VIN Administration Telmisartan 40 mg 02/25/25 21:00 03/04/25 08:19 Telmisartan 40 Mg Tablet PO 40 mg Q12HR VIN Administration Vitamin D 50 mcg 02/26/25 09:00 03/04/25 08:19 Cholecalciferol (Vitamin D3) 25 Mcg (1,000 Units) Tablet PO 50 mcg DAILY VIN Administration Radiology Results: ITS Impressions Modified Barium Swallow 02/27/25 12:16 IMPRESSION: Laryngeal penetration without aspiration. Please correlate with speech pathologist findings and specific feeding recommendations. Chest CTA 02/27/25 13:55 IMPRESSION: 1. No PE. 2. Acute scattered bilateral pneumonitis. Head CT 03/02/25 11:10 IMPRESSION: 1. No acute intracranial findings. Chest X-Ray 03/04/25 07:23 Impression: 1: Cardiomegaly with pulmonary edema. Labs Labs: Laboratory Results - last 24 hr 03/04/25 03:50 WBC 9.0 RBC 2.70 L Hgb 8.7 L Hct 26.1 L MCV 96.7 MCH 32.2 MCHC 33.3 RDW 14.4 Plt Count 121 L MPV 11.5 H Immature Gran % (Auto) 2.4 H Neut % (Auto) 68.6 Lymph % (Auto) 11.1 L [place] % (Auto) 17.0 H Eos % (Auto) 0.7 Baso % (Auto) 0.2 Lymph # (Auto) 1.00 [place] # (Auto) 1.5 H Eos # (Auto) 0.1 Baso # (Auto) 0.0 Abs Immat Gran (auto) 0.22 H Absolute Neuts (auto) 6.2 Absolute Nucleated RBC 0.000 Nucleated RBC % 0.0 % Immature Plt Fraction 7.2 Sodium 129 L Potassium 3.8 Chloride 96 L Carbon Dioxide 31 H Anion Gap 2 L BUN 19 H Creatinine 0.73 Estim Creat Clear Calc 62 Estimated GFR > 60 Glucose 103 Calcium 9.2 Magnesium 1.8 Total Bilirubin 1.5 H AST 24 ALT 29 Alkaline Phosphatase 78 NT-Pro-B Natriuret Pep 6040 H Total Protein 6.1 L Albumin 3.5
--- NOTE | 2025-03-04 17:54 | PC.NURSE ---
This patient, Marialuisa Darden, was transferred to [[id number] ] on 03/04/25 at 7784. Personal belongings sent with patient. Report given to [ELVIN Short @ 2824 ]. Appropriate documentation sent with patient. at bedside and aware of transfer
--- NOTE | 2025-03-04 18:15 | PC.NURSE ---
This patient, Marialuisa Darden, was received from [facility] [id number] on 03/04/25 at 1815 . Patient/family oriented to unit policies and routines
[2025-03-04] MEDS: GABAPENTIN 300 MG CAPSULE PO (20:54)
[2025-03-04] MEDS: DONEPEZIL HCL 5 MG TABLET PO (20:55)
[2025-03-04] MEDS: LORazepam (*CRX) 1 MG TABLET 2 MG PO (21:47)
--- NOTE | 2025-03-04 22:04 | PCRCNOTE ---
Window of time for administration has passed. See next scheduled administration.
[2025-03-05] VITALS (7 sets, daily range): BP systolic 108–137; BP diastolic 71–75; PULSE 63–97; RESP 18; TEMP 35.8–36.4; O2SAT 88–99
[2025-03-05] MEDS: IPRATROPIUM 0.5 MG/ALBUTEROL SULFATE 2.5 MG (BASE) AMPUL.NEB 3 ML INHALATION ×2 (02:22→08:55)
[2025-03-05 06:22] LABS: Hematocrit 25.7 % (37.0-47.0); Hemoglobin 8.4 g/dL (12.0-15.0); Immature Granulocyte Percent A 1.9 % (0-0.5); Immature Platelet Fraction Pct 8.5 % (0.9-11.2); Lymphocytes Absolute Auto 1.19 K/mm3 (0.9-3.2); Mean Corpuscular HGB Conc 32.7 g/dl (32-36); Mean Corpuscular Hemoglobin 31.1 pg (26-34); Mean Corpuscular Volume 95.2 fl (80-100); Nucleated Red Blood Cells Absolute Auto 0.000 K/mm3 (0.0-0.012); Nucleated Red Blood Cells Perc 0.0 % (0.0-0.2); Platelet Count Result 125 k/mm3 (150-375); Red Blood Count 2.70 M/mm3 (4.2-5.4); White Blood Count 8.0 K/mm3 (4.5-10.0)
[2025-03-05 06:36] LABS: Alanine Aminotransferase 22 U/L (6-35); Albumin Level 3.4 g/dL (3.5-5.1); Alkaline Phosphatase 72 U/L (38-126); Anion Gap 3 mmol/L (4-12); Aspartate Amino Transferase 20 U/L (14-36); Bilirubin,Total 1.4 mg/dL (0.2-1.3); Blood Urea Nitrogen 14 mg/dL (7-17); Calcium 9.0 mg/dL (8.4-10.2); Carbon Dioxide 31 mmol/L (22-30); Chloride 95 mmol/L (98-107); Estimated CRCL calculation 60 ml/min; Estimated Glomerular Filt Rate > 60; Glucose 87 mg/dL (65-110); Magnesium 1.5 mg/dL (1.6-2.3); Potassium 4.1 mmol/L (3.4-5.0); Sodium 129 mmol/L (137-145); Total Protein 6.1 g/dL (6.3-8.2)
[2025-03-05] MEDS: LEVOTHYROXINE SODIUM 150 MCG TABLET PO (06:40)
[2025-03-05] MEDS: GABAPENTIN 300 MG CAPSULE PO ×2 (06:40→13:10)
[2025-03-05] MEDS: BENZONATATE 100 MG CAPSULE 200 MG PO ×2 (06:41→13:10)
[2025-03-05 08:00] LABS: Ovalocytes 1+
[2025-03-05 08:01] LABS: Acanthocytes 1+; Burr Cells 1+; Schistocytes None Seen
[2025-03-05] MEDS: METOPROLOL SUCCINATE EXT REL 50 MG TABCR PO (09:23)
[2025-03-05] MEDS: FOLIC ACID 1 MG TABLET PO (09:24)
[2025-03-05] MEDS: SODIUM CHLORIDE 500 MG TABLET PO (09:24)
[2025-03-05] MEDS: SPIRONOLACTONE 25 MG TABLET PO (09:24)
[2025-03-05] MEDS: POTASSIUM CHLORIDE 20 MEQ ER TABLET PO (09:24)
[2025-03-05] MEDS: CHOLECALCIFEROL (VITAMIN D3) 25 MCG (1,000 UNITS) TABLET 50 MCG PO (09:24)
[2025-03-05] MEDS: TELMISARTAN 40 MG TABLET PO (09:24)
[2025-03-05] MEDS: PRAVASTATIN SODIUM 20 MG TABLET 40 MG PO (09:24)
[2025-03-05] MEDS: PANTOPRAZOLE 40 MG TABLET PO (09:24)
[2025-03-05] MEDS: LIDOCAINE 5% PATCH 1 PATCH TRANSDERM (09:25)
[2025-03-05] MEDS: MONTELUKAST SODIUM 10 MG TABLET PO (09:25)
[2025-03-05] MEDS: DOCUSATE SODIUM 100 MG CAPSULE PO (09:25)
[2025-03-05] MEDS: OMEGA 3 POLYUNSAT FATTY ACIDS 1 GM CAP PO (09:25)
[2025-03-05] MEDS: FUROSEMIDE 20 MG TABLET PO (09:25)
--- NOTE | 2025-03-05 11:00 | PCNWS ---
Weekly nutritional screen. Patient is tolerating current heart healthy diet and moderately thick liquids level 3 with adequate intake at 50-100%. Plans to discharge back to facility. No nutritional recommendations at this time.
--- NOTE | 2025-03-05 12:10 | P.PNCA_ITS ---
Progress Note: A&P Assessment and Plan (1) Atrial fibrillation: Code(s): I48.91 - Unspecified atrial fibrillation Status: Acute Plan - Persistent atrial fibrillation - GI bleed - History of hypertension - History of hypothyroidism - Regards to atrial fibrillation, heart rates controlled. Continue metoprolol for rate control. Anticoagulation was stopped because of anemia and GI bleed. - In regards to hypertension controlled. Continue amlodipine, metoprolol and spironolactone. - Regards to diastolic heart failure, she received IV Lasix for a couple days. Continue spironolactone. Continue furosemide at 20 mg daily .. . Today sodium is drifting down to 129. Previously her sodium was low at 126. - Regards to hypomagnesemia order magnesium sulfate 3 g. Subjective Date/time seen: 03/05/25 12:10 Interval history: Patient is resting comfortably in the bedside chair. Nasal cannula oxygen placed. Patient back in atrial fibrillation this morning heart rate is in the 90s to low 100s. She is unaware of this. No symptoms of palpitations or awareness of her arrhythmia. 03/03/2025: Patient is confused somewhat encephalopathic but comfortable this morning. She seems to be pleasantly confused. The AFib persists heart rate is well controlled with metoprolol Date of service 03/04/2025-still has cough. Improved. On 2 L nasal cannula which she takes at home Date of service 03/05/2025-she feels better. Back on 2 L nasal cannula which she takes at home. AFib is rate controlled. Review of Systems Review of Systems: ROS unobtainable: Yes unobtainable due to mental status Cardiovascular: Cardiovascular: Reports as per HPI Respiratory: Respiratory: Reports as per HPI Exam Const: General: comfortable, no acute distress, alert and awake [place] ation/consciousness: patient oriented x3 Other: Elderly lady who is confused according to staff has significant baseline dementia. HENMT: Head: normal to inspection Mouth: Yes moist mucous membranes Eyes: General: appearance normal, both eyes and all related structures Pupils: Equal, round and reactive pupils present EOM: EOMs intact bilaterally Neck: Neck: normal visual inspection, supple and no JVD Carotids: normal carotid upstroke Resp: Effort & Inspection: normal respiratory effort Auscultation: rales, rhonchi and wheezes Cardio: Rate: regular rate Rhythm: regular rhythm and abnormal rhythm irregularly irregular Heart sounds: S1 normal heart sound present, S2 normal heart sound present and Murmur heart sound present GI: Auscultation: normal bowel sounds Skin: General skin exam: normal color Neuro: General: patient oriented x3 Cranial nerves: Yes Equal, round and reactive pupils present Extrem: General: edema and pedal edema Other: trace bilateral pretibial edema Psych: Appearance: grossly normal Mental Status: mental status grossly abnormal Objective Data Vital Signs Vital Signs: Vital Signs - 24 hr 03/04/25 14:00 03/04/25 14:30 03/04/25 14:44 Temperature Pulse Rate 95 84 76 Respiratory Rate 16 16 Blood Pressure Pulse Oximetry Oxygen Delivery Oxygen Flow Rate 03/04/25 16:00 03/04/25 20:00 03/04/25 21:06 Temperature 36.6 C 37.0 C Pulse Rate 69 63 Respiratory Rate 20 20 Blood Pressure 118/78 124/78 Pulse Oximetry 95 95 95 Oxygen Delivery CPAP Oxygen Flow Rate 2 03/05/25 06:00 03/05/25 08:00 03/05/25 08:56 Temperature 35.8 C L Pulse Rate 67 75 Respiratory Rate 18 18 Blood Pressure 137/71 Pulse Oximetry 96 89 L Oxygen Delivery Nasal Cannula Oxygen Flow Rate 2 03/05/25 09:01 03/05/25 09:04 03/05/25 09:23 Temperature Pulse Rate 63 83 Respiratory Rate 18 Blood Pressure Pulse Oximetry 99 Oxygen Delivery Room Air Oxygen Flow Rate Intake/Output Intake/Output: Intake & Output 03/02/25 03/03/25 03/04/25 03/05/25 23:59 23:59 23:59 23:59 Intake Total 1420 2247.9 1940 240 Output Total 640 1100 200 850 Balance 780 1147.9 1740 -610 Meds/Results Medications: Active Medications Generic Name Dose Route Start Last Admin Trade Name Freq PRN Reason Stop Dose Admin Acetaminophen 650 mg 02/25/25 02:42 03/03/25 18:24 Acetaminophen 325 Mg Tablet PO 650 mg Q4H PRN Administration Mild Pain (1-3) or Fever Albuterol 2.5 mg 02/25/25 15:24 Albuterol Sulfate Neb 2.5 Mg/3 Ml Inh INHALATION Q6HRT PRN Shortness Of Breath Or Wheezing Albuterol/Ipratropium 3 ml 02/25/25 08:00 03/05/25 08:55 Ipratropium 0.5 Mg/Albuterol Sulfate 2.5 Mg (Base) Ampul.Neb 3 Ml INHALATION 3 ml Q6HRT VIN Administration Amlodipine Besylate 10 mg 02/26/25 09:00 03/05/25 09:25 Amlodipine Besylate 10 Mg Tablet PO 10 mg DAILY VIN Administration Benzonatate 200 mg 02/27/25 22:00 03/05/25 06:41 Benzonatate 100 Mg Capsule PO 200 mg Q8HR VIN Administration Diclofenac Sodium 0 applic 02/25/25 15:24 Diclofenac Sodium 1% 100 Gm Gel (*Bkc) TOPICAL QID PRN JOINT PAIN Docusate Sodium 100 mg 02/25/25 21:00 03/05/25 09:25 Docusate Sodium 100 Mg Capsule PO 100 mg Q12HR VIN Administration Donepezil HCl 5 mg 02/25/25 21:00 03/04/25 20:55 Donepezil Hcl 5 Mg Tablet PO 5 mg QHS VIN Administration Fish Oil 1 gm 02/26/25 09:00 03/05/25 09:25 [place] 3 Polyunsat Fatty Acids 1 Gm Cap PO 1 gm DAILY VIN Administration Fluoxetine HCl 20 mg 02/25/25 22:00 03/05/25 06:41 Fluoxetine Hcl 20 Mg Capsule PO 20 mg Q8HR VIN Administration Folic Acid 1 mg 02/26/25 09:00 03/05/25 09:24 Folic Acid 1 Mg Tablet PO 1 mg DAILY VIN Administration Furosemide 20 mg 03/04/25 12:10 03/05/25 09:25 Furosemide 20 Mg Tablet PO 20 mg DAILY VIN Administration Gabapentin 300 mg 02/25/25 15:35 03/05/25 06:40 Gabapentin 300 Mg Capsule PO 300 mg Q8HR VIN Administration Levothyroxine Sodium 150 mcg 02/26/25 06:30 03/05/25 06:40 Levothyroxine Sodium 150 Mcg Tablet PO 150 mcg DAILY@0630 VIN Administration Lidocaine 1 patch 02/26/25 09:00 03/05/25 09:25 Lidocaine 5% Patch TRANSDERM 1 patch DAILY VIN Administration Loratadine 10 mg 02/25/25 15:24 03/03/25 08:52 Loratadine 10 Mg Tablet PO 10 mg DAILY PRN Administration allergy symptoms Lorazepam 2 mg 02/26/25 23:03 03/04/25 21:47 Lorazepam (*Crx) 1 Mg Tablet PO 2 mg Q4H PRN Administration Anxiety Metoprolol Succinate 50 mg 03/03/25 09:00 03/05/25 09:23 Metoprolol Succinate Ext Rel 50 Mg Tabcr PO 50 mg QAM VIN Administration Montelukast Sodium 10 mg 02/26/25 09:00 03/05/25 09:25 Montelukast Sodium 10 Mg Tablet PO 10 mg DAILY VIN Administration Ondansetron HCl 4 mg 02/25/25 02:42 Ondansetron Inj 4 Mg/2 Ml Vial IV PUSH Q4H PRN Nausea Pantoprazole Sodium 40 mg 02/25/25 21:00 03/05/25 09:24 Pantoprazole 40 Mg Tablet PO 40 mg Q12HR VIN Administration Potassium Chloride 20 meq 03/02/25 09:40 03/05/25 09:24 Potassium Chloride 20 Meq Er Tablet PO 20 meq BID VIN Administration Pravastatin Sodium 40 mg 02/26/25 09:00 03/05/25 09:24 Pravastatin Sodium 20 Mg Tablet PO 40 mg DAILY VIN Administration Sodium Chloride 500 mg 02/28/25 09:00 03/05/25 09:24 Sodium Chloride 500 Mg Tablet PO 500 mg QAM VIN Administration Spironolactone 25 mg 02/26/25 09:00 03/05/25 09:24 Spironolactone 25 Mg Tablet PO 25 mg DAILY VIN Administration Telmisartan 40 mg 02/25/25 21:00 03/05/25 09:24 Telmisartan 40 Mg Tablet PO 40 mg Q12HR VIN Administration Vitamin D 50 mcg 02/26/25 09:00 03/05/25 09:24 Cholecalciferol (Vitamin D3) 25 Mcg (1,000 Units) Tablet PO 50 mcg DAILY VIN Administration Radiology Results: ITS Impressions Modified Barium Swallow 02/27/25 12:16 IMPRESSION: Laryngeal penetration without aspiration. Please correlate with speech pathologist findings and specific feeding recommendations. Chest CTA 02/27/25 13:55 IMPRESSION: 1. No PE. 2. Acute scattered bilateral pneumonitis. Head CT 03/02/25 11:10 IMPRESSION: 1. No acute intracranial findings. Chest X-Ray 03/04/25 07:23 Impression: 1: Cardiomegaly with pulmonary edema. Labs Labs: Laboratory Results - last 24 hr 12/30/25 05:49 WBC 8.0 RBC 2.70 L Hgb 8.4 L Hct 25.7 L MCV 95.2 MCH 31.1 MCHC 32.7 RDW 14.4 Plt Count 125 L MPV 11.6 H Immature Gran % (Auto) 1.9 H Neut % (Auto) 62.1 Lymph % (Auto) 14.9 L [place] % (Auto) 20.2 H Eos % (Auto) 0.5 Baso % (Auto) 0.4 Lymph # (Auto) 1.19 [place] # (Auto) 1.6 H Eos # (Auto) 0.0 Baso # (Auto) 0.0 Abs Immat Gran (auto) 0.15 H Absolute Neuts (auto) 5.0 Absolute Nucleated RBC 0.000 Band Neutrophils % Not Reportable Nucleated RBC % 0.0 Platelet Estimate Decreased % Immature Plt Fraction 8.5 Ovalocytes 1+ Regi Cells 1+ Acanthocytes (Spur) 1+ Schistocytes None seen Sodium 129 L Potassium 4.1 Chloride 95 L Carbon Dioxide 31 H Anion Gap 3 L BUN 14 D Creatinine 0.70 Estim Creat Clear Calc 60 Estimated GFR > 60 Glucose 87 Calcium 9.0 Magnesium 1.5 L Total Bilirubin 1.4 H AST 20 ALT 22 Alkaline Phosphatase 72 Total Protein 6.1 L Albumin 3.4 L Quality VTE Prophylaxis VTE prophylaxis: pharmacologic ordered
--- NOTE | 2025-03-05 12:54 | P.DS_ITS ---
DS: Admitting Diagnosis Discharge Date 03/05/2025 Admitting Diagnosis Shortness of breath DS: Discharge Diagnosis Discharge Diagnosis (1) Acute exacerbation of CHF (congestive heart failure): Qualifiers: Heart failure type: diastolic Qualified Code(s): I50.33 - Acute on chronic diastolic (congestive) heart failure Code(s): I50.9 - Heart failure, unspecified Status: Acute DS: Summary Hospital Course Hospital Course: 79-year-old female presents from independent living accompanied by her . She has shortness of breath and cough. She has an extensive history including dementia, chronic respiratory failure on 2 L nasal cannula, NBA on CPAP, diastolic dysfunction heart failure, anemia, COPD, hypertension, fibromyalgia, fibrotic NSIP, atrial fibrillation on Eliquis. Patient required more oxygen supplementation, 4 L. after aggressive diuresis she has come back down to her usual 2 L, she is breathing at her normal and feels back to her baseline and ready for discharge on 03/05/2025 in stable condition to [facility]. Therefore, her initial complaint of shortness of breath likely due to acute on chronic diastolic heart failure. Cardiology consulted. Her [employer] p.r.n. furosemide has now been changed to 20 mg daily on discharge after aggressive IV diuresis. She has had some low sodiums but it is now stable at 129, started on sodium chloride tab tab every morning with the diuretic. Hypo magnesium has been replaced with Mag sulfate rider. She has been given prescription for KCL tab every morning to combat the effects of hypokalemia from furosemide. Atrial fibrillation, she is now rate controlled. Nebivolol has been changed to metoprolol. Anticoagulation has been discontinued due to anemia and GI bleed. As such, gastroenterology has been consulted. She initially had hematochezia and melena but that is resolved and endoscopy has been deferred to the outpatient setting as she was too high of a risk due to her respiratory status. Patient is seen by pulmonology, her conditions are complicated by interstitial pulmonary disease. She will follow-up with her regular schedule on March with them in the office. She is to continue her CPAP. She is to continue 2 L at rest, activity, sleep. She will be discharged on Trelegy 1 puff per day, rescue albuterol inhaler, rescue nebulizer, montelukast 10 mg p.o. q.day. also treated for suspected pneumonia in the setting of interstitial lung disease, she received cefepime and doxycycline. All of her and her 's questions and concerns were answered to satisfaction. She was full code during the admission. Time Spent with Patient Time attestation: Total time spent providing and/or coordinating discharge services: Time spent: Greater than 30 minutes Exam Const: General: comfortable Other: Pleasantly confused Eyes: Pupils: Equal, round and reactive pupils present Neck: Neck: supple Resp: Effort & Inspection: normal respiratory effort Auscultation: clear to auscultation bilaterally Cardio: Rate: regular rate Rhythm: abnormal rhythm GI: Inspection: non-distended GI Palp: Yes Soft to palpation Neuro: Motor exam (neuro): 5/5 motor strength present throughout DS: Data Data Completed and Pending Labs on day of discharge: Labs from last 24 hours 03/05/25 05:49 WBC 8.0 RBC 2.70 L Hgb 8.4 L Hct 25.7 L MCV 95.2 MCH 31.1 MCHC 32.7 RDW 14.4 Plt Count 125 L MPV 11.6 H Immature Gran % (Auto) 1.9 H Neut % (Auto) 62.1 Lymph % (Auto) 14.9 L [place] % (Auto) 20.2 H Eos % (Auto) 0.5 Baso % (Auto) 0.4 Lymph # (Auto) 1.19 [place] # (Auto) 1.6 H Eos # (Auto) 0.0 Baso # (Auto) 0.0 Abs Immat Gran (auto) 0.15 H Absolute Neuts (auto) 5.0 Absolute Nucleated RBC 0.000 Band Neutrophils % Not Reportable Nucleated RBC % 0.0 Platelet Estimate Decreased % Immature Plt Fraction 8.5 Ovalocytes 1+ [place] Cells 1+ Acanthocytes (Spur) 1+ Schistocytes None seen Sodium 129 L Potassium 4.1 Chloride 95 L Carbon Dioxide 31 H Anion Gap 3 L BUN 14 D Creatinine 0.70 Estim Creat Clear Calc 60 Estimated GFR > 60 Glucose 87 Calcium 9.0 Magnesium 1.5 L Total Bilirubin 1.4 H AST 20 ALT 22 Alkaline Phosphatase 72 Total Protein 6.1 L Albumin 3.4 L Preliminary micro results at discharge 02/25/25 21:28 Gram Stain Sputum Result 1 - Preliminary Sputum Discharge Plan Discharge Attending physician on discharge: Aislinn Bullock Consulting providers: Marco Guzman; Charanjit Chinchilla; Beltran Carlson; Tad Bland; Sara Hsu; Tad Morales Discharging Clinician: Aislinn Bullock Patient Disposition: SNF Activity: no shower Diet: as tolerated Patient Instructions: Apixaban (By mouth), Heart Failure (DC) Patient Language: Tristanian Stand Alone Forms: General Discharge Information Discharge Medications: New metoprolol succinate 50 mg Tablet Extended Release 24 Hr 50 mg PO QAM Qty: 30 0RF potassium chloride [Klor-Con M20] 20 mEq tablet,ER particles/crystals 20 meq PO DAILY Qty: 30 0RF furosemide 20 mg Tablet 20 mg PO DAILY Qty: 30 0RF sodium chloride 1,000 mg tablet,soluble 500 mg PO DAILY Qty: 30 0RF Continued docusate sodium 100 mg capsule 100 mg PO BID telmisartan 40 mg tablet 40 mg PO BID diclofenac sodium [Arthritis Pain (diclofenac)] 1 % gel 4 g topical QID PRN (Reason: Pain) Rx Instructions: apply to single knee, ankle, foot; for foot includes sole/toes/top of foot spironolactone 25 mg tablet 25 mg PO DAILY albuterol sulfate 2.5 mg /3 mL (0.083 %) solution for nebulization 2.5 mg inhalation Q6-8H PRN (Reason: shortness of breath or wheezing) naloxone 4 mg/actuation spray,non-aerosol 4 mg intranasal Q2-3M PRN (Reason: opioid overdose) Qty: 2 1RF Rx Instructions: spray 1 dose into ONE nostril; repeat every 2-3 minutes until responsive, alternating nostrils w each dose until help arrives albuterol sulfate 90 mcg/actuation HFA aerosol inhaler 1 - 2 puff inhalation Q4-6H PRN (Reason: shortness of breath or wheezing) Qty: 25.5 3RF (DME) oxygen 0 .ROUTE .MEDSUPPLY Patient Comments: 2L (DME) CPAP 0 .ROUTE .MEDSUPPLY loratadine [Claritin] 10 mg tablet 10 mg PO DAILY PRN (Reason: allergy symptoms) nystatin 100,000 unit/gram powder 1 applic topical BID PRN (Reason: rash) Qty: 60 0RF Gemtesa 75 mg tablet 75 mg PO DAILY cholecalciferol (vitamin D3) 50 mcg (2,000 unit) capsule 2,000 unit PO DAILY [place]-3 350 mg-235 mg- 90 mg-597 mg capsule,delayed release(DR/EC) 1 cap PO DAILY benzonatate 200 mg capsule 200 mg PO TID PRN (Reason: cough) 7 Days Qty: 20 2RF Trelegy Ellipta 200-62.5-25 mcg blister with device 1 inh inhalation DAILY Qty: 180 3RF Rx Instructions: Rinse mouth and spit after each use lidocaine 5 % adhesive patch,medicated See Rx Instructions .ROUTE .COMPLEX Qty: 90 3RF Dose Instruction: APPLY 1 PATCH TO LOW BACK FOR 12 HOURS PER DAY Rx Instructions: APPLY 1 PATCH TO LOW BACK FOR 12 HOURS PER DAY amlodipine 10 mg tablet 10 mg PO DAILY Qty: 90 1RF fluoxetine 20 mg capsule 20 mg PO TID Qty: 270 1RF gabapentin 300 mg capsule 300 mg PO TID Qty: 270 1RF montelukast 10 mg tablet 10 mg PO DAILY Qty: 90 1RF pantoprazole 40 mg tablet,delayed release (DR/EC) 40 mg PO BID Qty: 180 1RF pravastatin 40 mg tablet 40 mg PO DAILY Qty: 90 1RF levothyroxine [Synthroid] 150 mcg tablet 150 mcg PO DAILY Qty: 90 1RF folic acid 1 mg tablet 1 mg PO DAILY Qty: 90 1RF donepezil 5 mg tablet 5 mg PO QHS Qty: 90 1RF Held aspirin 81 mg capsule 81 mg PO DAILY Hold Instructions: Hold for now, discuss re-initiation with PCP or GI. Eliquis 5 mg Tablet 5 mg PO Q12HR Qty: 180 2RF Hold Instructions: Hold for now, discuss re-initiation with PCP or GI. Discontinued guaifenesin [Mucus Relief ER] 600 mg Tablet Extended Release 12hr 1,200 mg PO Q12HR Qty: 60 0RF furosemide [Lasix] 20 mg tablet 20 mg PO BID PRN (Reason: weight gain) Qty: 60 0RF nebivolol [Bystolic] 10 mg tablet 10 mg PO DAILY Qty: 90 1RF Date of admission: 02/26/25 10:33 Primary Care Provider: Kristofer Key Admitting Provider: Viviana Ruiz Attending physician on admission: Viviana Ruiz Condition: Stable Hospitalist MIPS Heart Failure (Exclusion) Patient has history of Heart Transplant or Left Ventricular Assistive Device?: No IF YES, STOP HERE Heart Failure (Qualifier) Patient has current or prior documentation of LVEF less than or equal to 40%, or mod/servere depressed LVSF?: No IF NO, STOP HERE
[2025-03-05] MEDS: MAGNESIUM OXIDE 400 MG TABLET PO (13:15)
== END 2025-03-05 14:55 | DRG 291 ==
LOC: ANHED 02:47 → ANHIMU 04:02 → ANH3MEDSUR 03-05 12:44 → ANHIMU 03-06 08:55
PROVIDERS: Internal Medicine; Internal Medicine Nephrology; Internal Medicine Pulmonary Disease; Physician Assistant; Admitting Provider Internal Medicine; Emergency Provider Emergency Medicine; PCP Internal Medicine; Visit Provider General Practice
DX: I11.0 Hypertensive heart disease with heart failure (principal); I50.33 Acute on chronic diastolic (congestive) heart failure; J18.9 Pneumonia, unspecified organism; J96.21 Acute and chronic respiratory failure with hypoxia; J44.0 Chronic obstructive pulmonary disease with (acute) lower respiratory infection; E87.1 Hypo-osmolality and hyponatremia; J45.901 Unspecified asthma with (acute) exacerbation; K62.5 Hemorrhage of anus and rectum; F33.0 Major depressive disorder, recurrent, mild; G93.40 Encephalopathy, unspecified; J84.178 Other interstitial pulmonary diseases with fibrosis in diseases classified elsewhere; I48.0 Paroxysmal atrial fibrillation; D64.9 Anemia, unspecified; E87.6 Hypokalemia; T50.1X5A Adverse effect of loop [high-ceiling] diuretics, initial encounter; D69.6 Thrombocytopenia, unspecified; H57.02 Anisocoria; E83.42 Hypomagnesemia; G47.33 Obstructive sleep apnea (adult) (pediatric); E06.3 Autoimmune thyroiditis; Z20.822 Contact with and (suspected) exposure to COVID-19; L71.8 Other rosacea; M13.812 Other specified arthritis, left shoulder; M47.892 Other spondylosis, cervical region; M41.9 Scoliosis, unspecified; M79.7 Fibromyalgia; Z96.659 Presence of unspecified artificial knee joint; Z87.891 Personal history of nicotine dependence; Z79.82 Long term (current) use of aspirin; Z79.01 Long term (current) use of anticoagulants; Z85.828 Personal history of other malignant neoplasm of skin; Z90.710 Acquired absence of both cervix and uterus; Z98.1 Arthrodesis status; Z90.49 Acquired absence of other specified parts of digestive tract; Z99.81 Dependence on supplemental oxygen; Z99.89 Dependence on other enabling machines and devices; F03.90 Unspecified dementia, unspecified severity, without behavioral disturbance, psychotic disturbance, mood disturbance, and anxiety; I34.0 Nonrheumatic mitral (valve) insufficiency; I36.1 Nonrheumatic tricuspid (valve) insufficiency; I35.1 Nonrheumatic aortic (valve) insufficiency
CPT/HCPCS: 0202U; 36415; 36430; 36600; 70450; 71045; 71275; 74230; 80048; 80053; 81003; 82274; 82533; 82805; 83605; 83735; 83880; 83930; 83935; 84145; 84300; 84439; 84443; 84484; 85014; 85018; 85025; 85055; 86140; 86738; 86850; 86900; 86901; 86923; 87040; 87449; 87637; 87641; 87899; 92526; 92610; 92611; 93005; 94640; 94667; 96365; 96366; 96367; 96375; 97110; 97162; 97166; 97530; 97535; 99285; A9270; G0378; J0692; J1650; J1938; J2919; J3373; J3475; J7050; P9016; Q9967